=== PATIENT | male | born 1930 | race Caucasian/White ===

== ENCOUNTER 2016-05-13 22:41 | Inpatient (IN) | payer MEDICARE, BC ==
[~2016-05-13] VITALS: Ht 180.3 cm; Wt 81.2 kg
[~2016-05-13 22:41] MED LIST: ACET325T9 PO; ASPI-482 PO; ASPI81TA2 PO; ATOR10TA60 PO; DUTA0.5C PO; GABA-586 PO; MULT-658 PO; TRAM50TA PO
[2016-05-13 23:55] LABS: BASO % 0 % (0-3); EOS % 0 % (0-3); HEMATOCRIT 41.4 % (39.0-53.0); HEMOGLOBIN 13.8 g/dL (13.0-17.5); LYMPH # 0.4 x10^3/uL (1.0-4.8); LYMPH % 2 % (24-48); MEAN CORPUSCULAR HEMOGLOBIN 33 pg (25-35); MEAN CORPUSCULAR HGB CONC 33 g/dL (31-37); MEAN CORPUSCULAR VOLUME 99 fL (79-100); MONO % 8 % (0-9); NEUT % 90 % (31-73); PLATELET COUNT 220 x10^3/uL (140-400); WHITE BLOOD COUNT 22.1 x10^3/uL (4.0-11.0)
[2016-05-14 00:04] LABS: CALCIUM 10.5 mg/dL (8.5-10.1); CREATININE 1.7 mg/dL (0.7-1.3); GFR 38.6; POTASSIUM 4.1 mmol/L (3.5-5.1)
[2016-05-14 00:09] LABS: DIRECT BILIRUBIN 0.2 mg/dL (0.0-0.2); TOTAL BILIRUBIN 0.9 mg/dL (0.2-1.0); TOTAL PROTEIN 7.6 g/dL (6.4-8.2)
[2016-05-14] MEDS ORDERED: ONDANSETRON PF 4 MG/2 ML VIAL. IV ONE (00:30)
[2016-05-14] MEDS ORDERED: IV NORMAL SALINE 500ML BAG 500 ML IV ONE (00:30)
[2016-05-14 00:34] LABS: PLT ESTIMATE ADEQUATE (ADEQUATE); TOXIC GRANULATION SLIGHT
--- NOTE | 2016-05-14 00:44 | PHYS DOC ---
Past Medical History Past Medical History: Dementia Additional Past Medical Histor: CONSTIPATION, Hard Of Hearing Past Surgical History: Pacemaker Alcohol Use: None Drug Use: None Adult General Chief Complaint Chief Complaint: ABDOMINAL PAIN HPI HPI Patient is a 85 year old male who presents with and son for evaluation of nausea and vomiting x multiple since yesterday. He has dull epigastric abdominal pain today. He does note chronic constipation, but states he has no changes in current bowel habits. His last BM was 2 days ago. He denies fever or chills, diarrhea, dysuria, cough, chest pain, dyspnea, lightheadedness, headache , rash, myalgia, cough, rhinorrhea. States he has not eaten or drank anything since yesterday morning. Review of Systems Review of Systems Constitutional: Denies fever or chills [] Eyes: Denies change in visual acuity, redness, or eye pain [] HENT: Denies nasal congestion or sore throat [] Respiratory: Denies cough or shortness of breath [] Cardiovascular: No additional information not addressed in HPI [] GI: Denies bloody stools or diarrhea [] : Denies dysuria or hematuria [] Musculoskeletal: Denies back pain or joint pain [] Integument: Denies rash or skin lesions [] Neurologic: Denies headache, focal weakness or sensory changes [] Endocrine: Denies polyuria or polydipsia [] Current Medications Current Medications Current Medications Medications (Trade) Dose Ordered Sig/Linda Start Time Stop Time Status Last Admin Dose Admin Acetaminophen (Tylenol) 650 mg PRN Q4HRS PRN 05/14/16 01:15 05/15/16 01:14 Ondansetron HCl 4 mg 4 mg PRN Q8HRS PRN 05/14/16 01:15 05/15/16 01:14 Sodium Chloride (Iv Sodium Chloride 0.9% 500ml Bag) 500 ml @ 500 mls/hr 1X ONCE 05/14/16 00:30 05/14/16 01:29 DC 05/14/16 00:14 500 MLS/HR Sodium Chloride (Iv Sodium Chloride 0.9% 1000ml Bag) 1,000 ml @ 125 mls/hr Q8H 05/14/16 01:11 05/15/16 01:10 Allergies Allergies Allergies Coded Allergies Type Severity Reaction Last Updated Verified No Known Drug Allergies 01/29/14 No Physical Exam Physical Exam Constitutional: Well developed, well nourished, no acute distress, non-toxic appearance. [] HENT: Normocephalic, atraumatic, bilateral external ears normal, oropharynx moist, nose normal. [] Eyes: PERRLA, EOMI. [] Neck: Normal range of motion, supple. [] Cardiovascular:Heart rate regular rhythm [] Lungs & Thorax: Bilateral breath sounds clear to auscultation [] Abdomen: Bowel sounds normal, soft, minimal epigastric tenderness, no guarding or rebound, no pulsatile masses. [] Skin: Warm, dry, no erythema, no rash. [] Back: No tenderness, no CVA tenderness. [] Extremities: No tenderness, ROM intact, no edema. [] Neurologic: Alert and oriented X 3, normal motor function, normal sensory function, no focal deficits noted. [] Psychologic: Affect normal, judgement normal, mood normal. [] Current Patient Data Vital Signs Vital Signs Date Time Temp Pulse Resp B/P Pulse Ox O2 Delivery O2 Flow Rate FiO2 05/13/16 23:30 98.1 94 16 168/83 97 Room Air 98.1 Lab Values Laboratory Tests Test 05/13/16 23:30 White Blood Count 22.1x10^3/uL (4.0-11.0) H Red Blood Count 4.20x10^6/uL (4.30-5.70) L Hemoglobin 13.8g/dL (13.0-17.5) Hematocrit 41.4% (39.0-53.0) Mean Corpuscular Volume 99fL (79-100) Mean Corpuscular Hemoglobin 33pg (25-35) Mean Corpuscular Hemoglobin Concent 33g/dL (31-37) Red Cell Distribution Width 13.0% (11.5-14.5) Platelet Count 220x10^3/uL (140-400) Neutrophils (%) (Auto) 90% (31-73) H Lymphocytes (%) (Auto) 2% (24-48) L Monocytes (%) (Auto) 8% (0-9) Eosinophils (%) (Auto) 0% (0-3) Basophils (%) (Auto) 0% (0-3) Neutrophils # (Auto) 19.9x10^3uL (1.8-7.7) H Lymphocytes # (Auto) 0.4x10^3/uL (1.0-4.8) L Monocytes # (Auto) 1.8x10^3/uL (0.0-1.1) H Eosinophils # (Auto) 0.0x10^3/uL (0.0-0.7) Basophils # (Auto) 0.0x10^3/uL (0.0-0.2) Segmented Neutrophils % 89% (35-66) H Band Neutrophils % 1% (0-9) Lymphocytes % 3% (24-48) L Monocytes % 7% (0-10) Toxic Granulation Slight Platelet Estimate Adequate (ADEQUATE) Sodium Level 139mmol/L (136-145) Potassium Level 4.1mmol/L (3.5-5.1) Chloride Level 100mmol/L (98-107) Carbon Dioxide Level 26mmol/L (21-32) Anion Gap 13 (6-14) Blood Urea Nitrogen 41mg/dL (8-26) H Creatinine 1.7mg/dL (0.7-1.3) H Estimated GFR (Cockcroft-Gault) 38.6 Glucose Level 129mg/dL (70-99) H Calcium Level 10.5mg/dL (8.5-10.1) H Total Bilirubin 0.9mg/dL (0.2-1.0) Direct Bilirubin 0.2mg/dL (0.0-0.2) Aspartate Amino Transferase (AST) 20U/L (15-37) Alanine Aminotransferase (ALT) 21U/L (16-63) Alkaline Phosphatase 60U/L (46-116) Total Protein 7.6g/dL (6.4-8.2) Albumin 4.0g/dL (3.4-5.0) Lipase 853U/L (73-393) H Laboratory Tests 05/13/16 23:30 Laboratory Tests 05/13/16 23:30 EKG EKG EKG as interpreted by me as ventricularly paced rhythm, rate 83 Radiology/Procedures Radiology/Procedures Ultrasound right upper quadrant IMPRESSION Liver cyst. No cholelithiasis. Electronically signed by: Belkis Momin (May 14, 2016 01:48:32) Course & Med Decision Making Course & Med Decision Making Pertinent Labs and Imaging studies reviewed. (See chart for details) He has leukocytosis and elevated lipase. Also has mild acute renal failure. His symptoms and laboratory evaluation are consistent with acute pancreatitis. Will admit for hydration and GI consultation. Discussed case with Dr. Williamson, who will admit. Roshan Disclaimer Franciscoon Disclaimer This electronic medical record was generated, in whole or in part, using a voice recognition dictation system. Departure Departure Impression: Primary Impression: Pancreatitis Additional Impressions: Nausea and vomiting Acute renal failure Disposition: ADMITTED INPATIENT Condition: STABLE Referrals: GERSON TODD Jr, MD (PCP) Problem Qualifiers Primary Impression: Pancreatitis Chronicity: acute Pancreatitis type: unspecified pancreatitis type Acute pancreatitis complication: unspecified Qualified Code: K85.90 - Acute pancreatitis without necrosis or infection, unspecified Additional Impressions: Nausea and vomiting Vomiting type: unspecified Vomiting Intractability: intractable Qualified Code: R11.2 - Nausea with vomiting, unspecified Acute renal failure Acute renal failure type: unspecified Qualified Code: N17.9 - Acute kidney failure, unspecified Maikel SANDOVAL MD May 14, 2016 00:44
[2016-05-14] MEDS ORDERED: ONDANSETRON PF 4 MG/2 ML VIAL. IV PRN ×2 (01:15→11:11)
[2016-05-14] MEDS ORDERED: ACETAMINOPHEN 325 MG TABLET. PO PRN (01:15)
--- NOTE | 2016-05-14 01:49 | RAD ---
PROCEDURE Right upper quadrant ultrasound HISTORY 85-year-old male with nausea and vomiting, abdominal pain and elevated lipase. Patient with dementia, unable to hold breath or reposition for the exam. TECHNIQUE Transverse and longitudinal sonography of the right upper quadrant is performed. COMPARISON None FINDINGS The pancreas is obscured by overlying bowel gas. IVC is documented. Within the left liver is a rounded anechoic structure measuring up to 7.5 cm, most suggestive of a cyst. This has been reportedly seen on previous CT, not currently available for comparison. The liver otherwise demonstrates normal contour and echogenicity. Main portal vein demonstrates normal directional flow. The liver measures 15.2 cm. There are no intraluminal gallstones, wall thickening or pericholecystic fluid. The right kidney measures 9.5 x 4.9 x 4.4 cm, without hydronephrosis or definite nephrolithiasis. Common bile duct measures 5 millimeters in diameter. IMPRESSION Liver cyst. No cholelithiasis. Electronically signed by: Belkis Momin (May 14, 2016 01:48:32)
[2016-05-14 02:19] LABS: BILIRUBIN,URINE NEGATIVE (NEG); GLUCOSE,URINE NEGATIVE (NEG); NITRITE,URINE NEGATIVE (NEG); PH,URINE 5.5; UROBILINOGEN,URINE 0.2 mg/dL (0.2 mg/dL)
[2016-05-14 02:24] LABS: BACTERIA,URINE FEW /HPF (0-FEW); PROTEIN,URINE TRACE mg/dL (NEG-TRACE); SQUAMOUS EPITHELIAL CELL,UR MOD /LPF
[2016-05-14 03:00] VITALS: BP 98/69
[2016-05-14] MEDS: IV NORMAL SALINE 1000ML BAG 1,000 ML IV SCH ×3 (03:01→20:41)
--- NOTE | 2016-05-14 06:14 | EKG ---
[facility] [address] [place] [address] Test Date: 2016-05-13 Test Time: 23:32:27 Pat Name: CHARIS JEFFERSON Department: Room: 506 Gender: M Alarm Mechanism Adjuster: TW EMT : 1930 Requested By: Maikel SANDOVAL Order Number: [id number] Reading MD: Jared Biswas Measurements Intervals [place] Rate: 83 P: RI: QRS: -67 QRSD: 168 T: 98 QT: 400 QTc: 471 Interpretive Statements ATRIAL FIBRILLATION VPACED Electronically Signed On 05-15-2016 15:31:02 CONCRETE TILE MACHINE OPERATOR by Jared Biswas
[2016-05-14 07:00] VITALS: BP 141/76
--- NOTE | 2016-05-14 10:19 | PDOC2 ---
GI CONSULT Reason For Consult: Pancreatitis HPI: HPI: 85 y/o male admitted through the ER where he was evaluated for n/v that began on 05/12/16 w/o precipitating events. He has h/o dementia; his is present to provide some history. He says emesis was initially clear but looked a little dark yesterday morning (when last occurred). He might have had some chest tightness but denies abdominal pain. He tolerated clear liquids this morning. Labs show WBC 22.1, lipase 853, Calcium 10.5, BUN 41, Cr 1.7. Abd US showed hepatic cyst. He also denies reflux/heartburn, dysphagia, weight loss, diarrhea, hematochezia , and melena. He has a h/o constipation; he has been advised to use Miralax and Benefiber in the past but tends not to take these. Colonoscopy in 2016 was normal; he does have a h/o adenomatous colon polyp in 2008. No gallbladder or pancreas history. He takes ASA 81mg at home but otherwise denies NSAID use. PMH: PMH: dementia, pacemaker, constipation, adenomatous colon polyp, BPH, HLD FH: Family History: Cancer (colon cancer - mother) Social History: Smoke: No (previously smoked the occasional cigar) ALCOHOL: occassional (wine w/ dinner sometimes) Drugs: None ROS: GEN: Denies fevers, chills, sweats HEENT: Denies blurred vision, sore throat CV: ?chest tightness" per RESP: Denies shortness of air, cough GI: Per HPI : Denies hematuria, dysuria ENDO: Denies weight changes NEURO: h/o dementia MSK: Denies weakness, joint pain/swelling SKIN: Denies jaundice, pruritus VItals: Vitals: Vital Signs Date Time Temp Pulse Resp B/P Pulse Ox O2 Delivery O2 Flow Rate FiO2 05/14/16 07:00 98.1 95 24 141/76 96 Room Air 98.1 Labs: Labs: Laboratory Tests Test 05/13/16 23:30 05/14/16 02:00 White Blood Count 22.1x10^3/uL (4.0-11.0) Red Blood Count 4.20x10^6/uL (4.30-5.70) Hemoglobin 13.8g/dL (13.0-17.5) Hematocrit 41.4% (39.0-53.0) Mean Corpuscular Volume 99fL (79-100) Mean Corpuscular Hemoglobin 33pg (25-35) Mean Corpuscular Hemoglobin Concent 33g/dL (31-37) Red Cell Distribution Width 13.0% (11.5-14.5) Platelet Count 220x10^3/uL (140-400) Neutrophils (%) (Auto) 90% (31-73) Lymphocytes (%) (Auto) 2% (24-48) Monocytes (%) (Auto) 8% (0-9) Eosinophils (%) (Auto) 0% (0-3) Basophils (%) (Auto) 0% (0-3) Neutrophils # (Auto) 19.9x10^3uL (1.8-7.7) Lymphocytes # (Auto) 0.4x10^3/uL (1.0-4.8) Monocytes # (Auto) 1.8x10^3/uL (0.0-1.1) Eosinophils # (Auto) 0.0x10^3/uL (0.0-0.7) Basophils # (Auto) 0.0x10^3/uL (0.0-0.2) Segmented Neutrophils % 89% (35-66) Band Neutrophils % 1% (0-9) Lymphocytes % 3% (24-48) Monocytes % 7% (0-10) Toxic Granulation Slight Platelet Estimate Adequate (ADEQUATE) Sodium Level 139mmol/L (136-145) Potassium Level 4.1mmol/L (3.5-5.1) Chloride Level 100mmol/L (98-107) Carbon Dioxide Level 26mmol/L (21-32) Anion Gap 13 (6-14) Blood Urea Nitrogen 41mg/dL (8-26) Creatinine 1.7mg/dL (0.7-1.3) Estimated GFR (Cockcroft-Gault) 38.6 Glucose Level 129mg/dL (70-99) Calcium Level 10.5mg/dL (8.5-10.1) Total Bilirubin 0.9mg/dL (0.2-1.0) Direct Bilirubin 0.2mg/dL (0.0-0.2) Aspartate Amino Transf (AST/SGOT) 20U/L (15-37) Alanine Aminotransferase (ALT/SGPT) 21U/L (16-63) Alkaline Phosphatase 60U/L (46-116) Total Protein 7.6g/dL (6.4-8.2) Albumin 4.0g/dL (3.4-5.0) Lipase 853U/L (73-393) Urine Collection Type Unknown Urine Color Yellow Urine Clarity Clear Urine pH 5.5 Urine Specific [place] >=1.030 Urine Protein Tracemg/dL (NEG-TRACE) Urine Glucose (UA) Negativemg/dL (NEG) Urine Ketones (Stick) Tracemg/dL (NEG) Urine Blood Trace (NEG) Urine Nitrite Negative (NEG) Urine Bilirubin Negative (NEG) Urine Urobilinogen Dipstick 0.2mg/dL (0.2 mg/dL) Urine Leukocyte Esterase Negative (NEG) Urine RBC 3-5/HPF (0-2) Urine WBC 1-4/HPF (0-4) Urine Squamous Epithelial Cells Mod/LPF Urine Amorphous Sediment Present/HPF Urine Bacteria Few/HPF (0-FEW) Urine Hyaline Casts Few/HPF Urine Mucus Marked/LPF Allergies: Coded Allergies: No Known Drug Allergies (Unverified , 01/29/14) Medications: Current Medications Medications (Trade) Dose Ordered Sig/Linda Route PRN Reason Start Time Stop Time Status Last Admin Dose Admin Ondansetron HCl 4 mg 4 mg 1X ONCE IV 05/14/16 00:30 05/14/16 00:31 DC 05/14/16 00:13 Sodium Chloride 500 ml @ 500 mls/hr 1X ONCE IV 05/14/16 00:30 05/14/16 01:29 DC 05/14/16 00:14 Sodium Chloride (Iv Sodium Chloride 0.9% 1000ml Bag) 1,000 ml @ 125 mls/hr Q8H IV 05/14/16 01:11 05/15/16 01:10 05/14/16 03:01 Imaging: Imaging: Abd US 05/13/15 IMPRESSION Liver cyst. No cholelithiasis. PE: GEN: NAD HEENT: Atraumatic, PERRL LUNGS: CTAB HEART: RRR +murm ABD: NABS, S/ND/NT EXTREMITY: No edema SKIN: No rashes, no jaundice NEURO/PSYCH: forgetful A/P: A/P: Elevated lipase -853 on admission -had n/v for about 24 hours, possibly w/ chest tightness -LFTs WNL, abd US w/o cholelithiasis -no h/o pancreatitis or significant alcohol use N/v -tolerated clears this morning H/o constipation CRC screen, colon cancer -normal colonoscopy 2015 Dementia -- Will proceed w. CT A/P for further evaluation of pancreas. ANGELA SCHNEIDER May 14, 2016 10:19
[2016-05-14] MEDS ORDERED: IOHEXOL 240 MG/ML 50ML VIAL. PO ONE (10:30)
[2016-05-14 11:00] VITALS: BP 115/57
[2016-05-14] MEDS: POLYETHYLENE GLYCOL 3350 17 GM PACKET. PO SCH (11:00)
[2016-05-14] MEDS: DUTASTERIDE 0.5 MG CAPSULE PO SCH (11:44)
[2016-05-14] MEDS: ASPIRIN ENTERIC COATED 81 MG TABLET.DR. PO SCH (11:45)
[2016-05-14] MEDS: GABAPENTIN 300 MG CAPSULE. PO SCH ×2 (12:00→20:51)
[2016-05-14] MEDS ORDERED: MAGNESIUM HYDROXIDE 2,400 MG/30 ML ORAL.SUSP. PO PRN (12:15)
--- NOTE | 2016-05-14 12:15 | PDOC1 ---
History and Physical Date of Admission Date of Admission DATE: 05/14/16 TIME: 12:08 Identification/Chief Complaint Chief Complaint abd pain, emesis Source Source: Caregiver, Chart review, Patient History of Present Illness History of Present Illness 85 y/o male, hard of hearing, accompanied by , few days hx emesis , epigastric pain, Lipase 890s, CT pending, GI seen patient, Patient non tender, no emesis since admission, no diarrhea, Pt has had dec PO last few days, limited mobility, prefers to sit or lay in house per PCP Dr. pena LAbs Ca 10.2, Creatinine 1.7. Lipase 800s PAin described as epigastric, vague, no radiation, no fevers, no identifiable precipitating or alleviating factor. Accompanied by emesis Past Medical History Cardiovascular: Hyperlipidemia Hepatobiliary: Other (constipation) Past Surgical History Past Surgical History: No pertinent history Family History Family History: No Significant Social History Smoke: No (previously smoked the occasional cigar) ALCOHOL: none (wine w/ dinner sometimes) Drugs: None Current Problem List Problem List Problems Medical Problems: (1) Acute renal failure Status: Acute (2) Nausea and vomiting Status: Acute (3) Pancreatitis Status: Acute Problems: Current Medications Current Medications Current Medications Ondansetron HCl 4 mg 4 mg 1X ONCE IV Last administered on 05/14/16 00:13; Start 05/14/16 at 00:30; Stop 05/14/16 at 00:31; Status DC Sodium Chloride (Iv Sodium Chloride 0.9% 500ml Bag) 500 ml @ 500 mls/hr 1X ONCE IV Last administered on 05/14/16 00:14; Start 05/14/16 at 00:30; Stop at 01:29; Status DC Ondansetron HCl 4 mg 4 mg PRN Q8HRS PRN IV NAUSEA/VOMITING; Start 05/14/16 at 01 :15; Stop 05/14/16 at 11:13; Status DC Sodium Chloride (Iv Sodium Chloride 0.9% 1000ml Bag) 1,000 ml @ 125 mls/hr Q8H IV Last administered on 05/14/16 03:01; Start 05/14/16 at 01:11; Stop 05/15/16 at 01:10 Acetaminophen (Tylenol) 650 mg PRN Q4HRS PRN PO FEVER; Start 05/14/16 at 01:15; Stop 05/15/16 at 01:14 Iohexol (Omnipaque 240 Mg/ml) 30 ml 1X ONCE PO Last administered on 05/14/16 10:56; Start 05/14/16 at 10:30; Stop 05/14/16 at 10:31; Status DC Polyethylene Glycol (miraLAX PACKET) 17 gm DAILY PO ; Start 05/14/16 at 11:00 Ondansetron HCl (Zofran) 4 mg PRN Q6HRS PRN IV NAUSEA/VOMITING; Start 05/14/16 at 11:11 Aspirin (Children'S Aspirin) 81 mg DAILYWBKFT PO ; Start 05/15/16 at 09:00; Status UNV Aspirin (Ecotrin) 81 mg DAILYWBKFT PO Last administered on 05/14/16 11:45; Start 05/14/16 at 12:00 Atorvastatin Calcium (Lipitor) 10 mg QHS PO ; Start 05/14/16 at 21:00 Dutasteride (Avodart) 0.5 mg DAILY PO Last administered on 05/14/16 11:44; Start 05/14/16 at 12:00 Gabapentin (Neurontin) 300 mg BID PO ; Start 05/14/16 at 12:00 Tramadol HCl (Ultram) 50 mg PRN Q6HRS PRN PO PAIN; Start 05/14/16 at 11:15 Active Scripts Active Reported Gabapentin 300 Mg Capsule 300 Mg PO BID Aspir 81 (Aspirin) 81 Mg Tablet.dr 81 Mg PO DAILY Atorvastatin Calcium 10 Mg Tablet 1 Tab PO DAILY Tramadol Hcl 50 Mg Tablet 1 Tab PO PRN Q6HRS Centrum Silver Tablet (Multivits-Min/Fa/Lycopene/Lut) 1 Each Tablet 1 Each PO Aspirin 81 Mg Tab.chew 1 Tab PO DAILY Avodart (Dutasteride) 0.5 Mg Capsule 1 Cap PO DAILY Allergies Allergies: Coded Allergies: No Known Drug Allergies (Unverified , 01/29/14) ROS Review of System all 14 pt system reviwed, denies Physical Exam General: Alert, Oriented X3, Cooperative, No acute distress HEENT: Atraumatic Lungs: Clear to auscultation Heart: S1S2, RRR, no thrills, no rubs Cardiovascular: S1 Breasts: Normal Abdomen: Normal bowel sounds, Soft, No tenderness, No hepatosplenomegaly, No masses Male Genitals Exam: normal genitalia, normal prostate Rectal Exam: not examined Extremities: No clubbing, No cyanosis, No edema, Normal pulses, No tenderness/ swelling Skin: No rashes, No breakdown, No significant lesion Neuro: Normal gait, Normal speech, Strength at 5/5 X4 ext, Normal tone, Sensation intact, Cranial nerves 3-12 NL, Reflexes 2+ Psych/Mental Status: Mental status NL, Mood NL Vitals Vitals Vital Signs Date Time Temp Pulse Resp B/P Pulse Ox O2 Delivery O2 Flow Rate FiO2 05/14/16 08:00 Room Air 05/14/16 07:00 98.1 95 24 141/76 96 98.1 Labs Labs Laboratory Tests Test 05/13/16 23:30 05/14/16 02:00 White Blood Count 22.1x10^3/uL (4.0-11.0) Red Blood Count 4.20x10^6/uL (4.30-5.70) Hemoglobin 13.8g/dL (13.0-17.5) Hematocrit 41.4% (39.0-53.0) Mean Corpuscular Volume 99fL (79-100) Mean Corpuscular Hemoglobin 33pg (25-35) Mean Corpuscular Hemoglobin Concent 33g/dL (31-37) Red Cell Distribution Width 13.0% (11.5-14.5) Platelet Count 220x10^3/uL (140-400) Neutrophils (%) (Auto) 90% (31-73) Lymphocytes (%) (Auto) 2% (24-48) Monocytes (%) (Auto) 8% (0-9) Eosinophils (%) (Auto) 0% (0-3) Basophils (%) (Auto) 0% (0-3) Neutrophils # (Auto) 19.9x10^3uL (1.8-7.7) Lymphocytes # (Auto) 0.4x10^3/uL (1.0-4.8) Monocytes # (Auto) 1.8x10^3/uL (0.0-1.1) Eosinophils # (Auto) 0.0x10^3/uL (0.0-0.7) Basophils # (Auto) 0.0x10^3/uL (0.0-0.2) Segmented Neutrophils % 89% (35-66) Band Neutrophils % 1% (0-9) Lymphocytes % 3% (24-48) Monocytes % 7% (0-10) Toxic Granulation Slight Platelet Estimate Adequate (ADEQUATE) Sodium Level 139mmol/L (136-145) Potassium Level 4.1mmol/L (3.5-5.1) Chloride Level 100mmol/L (98-107) Carbon Dioxide Level 26mmol/L (21-32) Anion Gap 13 (6-14) Blood Urea Nitrogen 41mg/dL (8-26) Creatinine 1.7mg/dL (0.7-1.3) Estimated GFR (Cockcroft-Gault) 38.6 Glucose Level 129mg/dL (70-99) Calcium Level 10.5mg/dL (8.5-10.1) Total Bilirubin 0.9mg/dL (0.2-1.0) Direct Bilirubin 0.2mg/dL (0.0-0.2) Aspartate Amino Transf (AST/SGOT) 20U/L (15-37) Alanine Aminotransferase (ALT/SGPT) 21U/L (16-63) Alkaline Phosphatase 60U/L (46-116) Total Protein 7.6g/dL (6.4-8.2) Albumin 4.0g/dL (3.4-5.0) Lipase 853U/L (73-393) Urine Collection Type Unknown Urine Color Yellow Urine Clarity Clear Urine pH 5.5 Urine Specific [place] >=1.030 Urine Protein Tracemg/dL (NEG-TRACE) Urine Glucose (UA) Negativemg/dL (NEG) Urine Ketones (Stick) Tracemg/dL (NEG) Urine Blood Trace (NEG) Urine Nitrite Negative (NEG) Urine Bilirubin Negative (NEG) Urine Urobilinogen Dipstick 0.2mg/dL (0.2 mg/dL) Urine Leukocyte Esterase Negative (NEG) Urine RBC 3-5/HPF (0-2) Urine WBC 1-4/HPF (0-4) Urine Squamous Epithelial Cells Mod/LPF Urine Amorphous Sediment Present/HPF Urine Bacteria Few/HPF (0-FEW) Urine Hyaline Casts Few/HPF Urine Mucus Marked/LPF Laboratory Tests Test 05/13/16 23:30 05/14/16 02:00 White Blood Count 22.1x10^3/uL (4.0-11.0) Red Blood Count 4.20x10^6/uL (4.30-5.70) Hemoglobin 13.8g/dL (13.0-17.5) Hematocrit 41.4% (39.0-53.0) Mean Corpuscular Volume 99fL (79-100) Mean Corpuscular Hemoglobin 33pg (25-35) Mean Corpuscular Hemoglobin Concent 33g/dL (31-37) Red Cell Distribution Width 13.0% (11.5-14.5) Platelet Count 220x10^3/uL (140-400) Neutrophils (%) (Auto) 90% (31-73) Lymphocytes (%) (Auto) 2% (24-48) Monocytes (%) (Auto) 8% (0-9) Eosinophils (%) (Auto) 0% (0-3) Basophils (%) (Auto) 0% (0-3) Neutrophils # (Auto) 19.9x10^3uL (1.8-7.7) Lymphocytes # (Auto) 0.4x10^3/uL (1.0-4.8) Monocytes # (Auto) 1.8x10^3/uL (0.0-1.1) Eosinophils # (Auto) 0.0x10^3/uL (0.0-0.7) Basophils # (Auto) 0.0x10^3/uL (0.0-0.2) Segmented Neutrophils % 89% (35-66) Band Neutrophils % 1% (0-9) Lymphocytes % 3% (24-48) Monocytes % 7% (0-10) Toxic Granulation Slight Platelet Estimate Adequate (ADEQUATE) Sodium Level 139mmol/L (136-145) Potassium Level 4.1mmol/L (3.5-5.1) Chloride Level 100mmol/L (98-107) Carbon Dioxide Level 26mmol/L (21-32) Anion Gap 13 (6-14) Blood Urea Nitrogen 41mg/dL (8-26) Creatinine 1.7mg/dL (0.7-1.3) Estimated GFR (Cockcroft-Gault) 38.6 Glucose Level 129mg/dL (70-99) Calcium Level 10.5mg/dL (8.5-10.1) Total Bilirubin 0.9mg/dL (0.2-1.0) Direct Bilirubin 0.2mg/dL (0.0-0.2) Aspartate Amino Transf (AST/SGOT) 20U/L (15-37) Alanine Aminotransferase (ALT/SGPT) 21U/L (16-63) Alkaline Phosphatase 60U/L (46-116) Total Protein 7.6g/dL (6.4-8.2) Albumin 4.0g/dL (3.4-5.0) Lipase 853U/L (73-393) Urine Collection Type Unknown Urine Color Yellow Urine Clarity Clear Urine pH 5.5 Urine Specific [place] >=1.030 Urine Protein Tracemg/dL (NEG-TRACE) Urine Glucose (UA) Negativemg/dL (NEG) Urine Ketones (Stick) Tracemg/dL (NEG) Urine Blood Trace (NEG) Urine Nitrite Negative (NEG) Urine Bilirubin Negative (NEG) Urine Urobilinogen Dipstick 0.2mg/dL (0.2 mg/dL) Urine Leukocyte Esterase Negative (NEG) Urine RBC 3-5/HPF (0-2) Urine WBC 1-4/HPF (0-4) Urine Squamous Epithelial Cells Mod/LPF Urine Amorphous Sediment Present/HPF Urine Bacteria Few/HPF (0-FEW) Urine Hyaline Casts Few/HPF Urine Mucus Marked/LPF VTE Prophylaxis Ordered VTE Prophylaxis Devices: Yes VTE Pharmacological Prophylaxi: Yes Assessment/Plan Assessment/Plan 1, Mild pancreatitis as evidence by elevated lipase 2. Hypercalcemia sec to dehydration 3. ARF, hypovolemia, vaso motor likely sec to poor po 4. SIRS pOA, no sepsis 5. CHronic constipation 6. Emesis with mild hypokalmia PLAN: Liquid diet CT scan today abdomen Recheck Ca, lipase, BMP mindy IVF aggressive 125cc Encourage ambulation PT/OT Dw JAYLENHENRIK Capps MD May 14, 2016 12:15
[2016-05-14] MEDS ORDERED: POLYETHYLENE GLYCOL 3350 17 GM PACKET. PO SCH (13:00)
--- NOTE | 2016-05-14 13:03 | RAD ---
CT abdomen and pelvis without IV contrast History: Nausea and vomiting, elevated lipase, pancreatitis. Comparison: CT abdomen pelvis 02/19/2015. Technique: After administration of oral contrast, helical CT of the abdomen and pelvis was performed from the lung bases through the ischial tuberosities. Axial, sagittal, and coronal reconstructions were obtained. One or more of the following individualized dose reduction techniques were utilized for the study: Automated exposure control Adjustment of mA and/or kV according to patient's size Use of iterative reconstruction technique. Findings: Evaluation of solid organs limited by lack of intravenous contrast. There is also motion artifact at multiple levels which could obscure subtle abnormalities. Visualized lower chest demonstrate portions of a pacemaker. There is a moderate hiatal hernia which appears to have a complex orientation. Hiatal hernia appears larger since previous study. 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 There is interval development of a small right pleural effusion. Low-density left hepatic lesion, likely cyst, is fairly similar to previous study. Spleen is small, but otherwise unremarkable. Bilateral adrenal glands are unremarkable. Gallbladder is unremarkable. No convincing peripancreatic fluid or inflammation is identified. Bilateral kidneys and ureters are free of stone or obstruction. Infrarenal abdominal aortic aneurysm measures 3.2 cm AP dimension is similar to previous study. Urinary bladder is unremarkable. Prostate appears mildly enlarged. No free air or free fluid is seen in the abdomen or pelvis. Degenerative mild levoconvex scoliosis of the lumbar spine is seen. Impression: 1. No CT evidence of pancreatitis. 2. Moderate to large hiatal hernia with complex orientation, incompletely assessed. 3. Asbestos related pleural disease. Small right pleural effusion. 4. Infrarenal abdominal aortic aneurysm, unchanged from previous study.
[2016-05-14 15:00] VITALS: BP 104/58
[2016-05-14] MEDS: DOCUSATE SODIUM 100 MG CAPSULE PO SCH (15:47)
[2016-05-14 19:00] VITALS: BP 109/58
[2016-05-14] MEDS: ATORVASTATIN CALCIUM 10 MG TABLET. PO SCH (20:51)
[2016-05-14 23:00] VITALS: BP 118/47
[2016-05-15 03:00] VITALS: BP 100/55
[2016-05-15 06:06] LABS: BASO % 0 % (0-3); EOS % 0 % (0-3); HEMATOCRIT 24.3 % (39.0-53.0); HEMOGLOBIN 8.1 g/dL (13.0-17.5); LYMPH # 1.3 x10^3/uL (1.0-4.8); LYMPH % 12 % (24-48); MEAN CORPUSCULAR HEMOGLOBIN 33 pg (25-35); MEAN CORPUSCULAR HGB CONC 33 g/dL (31-37); MEAN CORPUSCULAR VOLUME 100 fL (79-100); MONO % 15 % (0-9); NEUT % 73 % (31-73); PLATELET COUNT 145 x10^3/uL (140-400); RED BLOOD COUNT 2.43 x10^6/uL (4.30-5.70); RED CELL DISTRIBUTION WIDTH 13.6 % (11.5-14.5); WHITE BLOOD COUNT 11.2 x10^3/uL (4.0-11.0)
[2016-05-15 06:17] LABS: CALCIUM 8.5 mg/dL (8.5-10.1); GFR 71.2; POTASSIUM 3.8 mmol/L (3.5-5.1)
[2016-05-15 06:18] LABS: CHOLESTEROL/HDL RATIO 2.7
[2016-05-15 07:00] VITALS: BP 105/36
[2016-05-15] MEDS: ASPIRIN ENTERIC COATED 81 MG TABLET.DR. PO SCH (08:00)
[2016-05-15] MEDS ORDERED: BARIUM SULFATE 60% 355 ML SUSP PO ONE (08:15)
[2016-05-15] MEDS ORDERED: ASPIRIN 81 MG TAB.CHEW PO SCH (09:00)
[2016-05-15] MEDS: DOCUSATE SODIUM 100 MG CAPSULE PO SCH (09:00)
[2016-05-15] MEDS: DUTASTERIDE 0.5 MG CAPSULE PO SCH (09:00)
[2016-05-15] MEDS: POLYETHYLENE GLYCOL 3350 17 GM PACKET. PO SCH (09:00)
[2016-05-15] MEDS: GABAPENTIN 300 MG CAPSULE. PO SCH ×2 (09:00→20:27)
--- NOTE | 2016-05-15 10:17 | PDOC ---
Subjective: Subjective: Per pt and - unable to complete imaging. Objective: Objective: Per RN - radiology apparently unable to perform UGI due to weakness/confusion. Had two black stools, first loose and second more formed. Vital Signs: Vital Signs Date Time Temp Pulse Resp B/P Pulse Ox O2 Delivery O2 Flow Rate FiO2 05/15/16 07:00 99.1 79 18 105/36 95 Room Air 99.1 Labs: Laboratory Tests Test 05/15/16 05:25 White Blood Count 11.2x10^3/uL Red Blood Count 2.43x10^6/uL Hemoglobin 8.1g/dL Hematocrit 24.3% Mean Corpuscular Volume 100fL Mean Corpuscular Hemoglobin 33pg Mean Corpuscular Hemoglobin Concent 33g/dL Red Cell Distribution Width 13.6% Platelet Count 145x10^3/uL Neutrophils (%) (Auto) 73% Lymphocytes (%) (Auto) 12% Monocytes (%) (Auto) 15% Eosinophils (%) (Auto) 0% Basophils (%) (Auto) 0% Neutrophils # (Auto) 8.2x10^3uL Lymphocytes # (Auto) 1.3x10^3/uL Monocytes # (Auto) 1.7x10^3/uL Eosinophils # (Auto) 0.0x10^3/uL Basophils # (Auto) 0.0x10^3/uL Sodium Level 146mmol/L Potassium Level 3.8mmol/L Chloride Level 114mmol/L Carbon Dioxide Level 25mmol/L Anion Gap 7 Blood Urea Nitrogen 67mg/dL Creatinine 1.0mg/dL Estimated GFR (Cockcroft-Gault) 71.2 Glucose Level 101mg/dL Calcium Level 8.5mg/dL Triglycerides Level 84mg/dL Cholesterol Level 107mg/dL LDL Cholesterol, Calculated 50mg/dL VLDL Cholesterol, Calculated 17mg/dL HDL Cholesterol 40mg/dL Cholesterol/HDL Ratio 2.7 Lipase 83U/L Imaging: CT A/P w/ oral contrast 05/14/16 Impression: 1. No CT evidence of pancreatitis. 2. Moderate to large hiatal hernia with complex orientation, incompletely assessed. 3. Asbestos related pleural disease. Small right pleural effusion. 4. Infrarenal abdominal aortic aneurysm, unchanged from previous study. PE: GEN: NAD LUNGS: CTAB anteriorly HEART: RRR ABD: S/ND/NT NEURO/PSYCH: able to provide some history A/P: Abnormal CT A/P -moderate to large hiatal hernia with complex orientation -UGI cancelled per radiology Anemia -Hgb 13.8 to 8.1, BUN 41 to 67 Dark stool -black per RN, more formed today Elevated lipase - resolved -LFTs WNL, abd US w/o cholelithiasis, no h/o pancreatitis or significant alcohol use, no CT evidence of pancreatitis N/v - resolved (has been NPO today) Dementia -- Significant change in labs today. Need to d/w Dr. Mendoza. ANGELA SCHNEIDER May 15, 2016 10:17
[2016-05-15 11:13] VITALS: BP 105/67
[2016-05-15] MEDS: PANTOPRAZOLE IV PUSH 40 MG VIAL. IVP SCH ×2 (11:30→18:09)
--- NOTE | 2016-05-15 12:53 | PDOC ---
PROGRESS NOTES Chief Complaint Chief Complaint 1. Idiopathic pancreaitis 2. Melena 3. Syncope, likely vagal 4. Hypercalcemia sec to dehydration resolved 5. ARF, hypovolemia, vaso motor likely sec to poor po 6. 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 CHronic constipation 8. Emesis with mild hypokalemia History of Present Illness History of Present Illness Acute events today: ' large melanotic stool Was about to have upper GI series but had almost near syncope HGb dropped to 8.4 from 13, but also as well as WBC 11 from 22 Lipase now normal CTs can fails to reveal radiographic evidence of pancreatitis Vitals Vitals Vital Signs Date Time Temp Pulse Resp B/P Pulse Ox O2 Delivery O2 Flow Rate FiO2 05/15/16 12:04 Room Air 05/15/16 11:13 98.9 69 14 105/67 97 98.9 Physical Exam General: Alert, Oriented X3, Cooperative, No acute distress Abdomen: Normal bowel sounds, Soft, No tenderness, No hepatosplenomegaly, No masses Extremities: No clubbing, No cyanosis, No edema, Normal pulses, No tenderness/ swelling Skin: No rashes, No breakdown, No significant lesion Labs LABS Laboratory Tests Test 05/15/16 05:25 White Blood Count 11.2x10^3/uL (4.0-11.0) Red Blood Count 2.43x10^6/uL (4.30-5.70) Hemoglobin 8.1g/dL (13.0-17.5) Hematocrit 24.3% (39.0-53.0) Mean Corpuscular Volume 100fL (79-100) Mean Corpuscular Hemoglobin 33pg (25-35) Mean Corpuscular Hemoglobin Concent 33g/dL (31-37) Red Cell Distribution Width 13.6% (11.5-14.5) Platelet Count 145x10^3/uL (140-400) Neutrophils (%) (Auto) 73% (31-73) Lymphocytes (%) (Auto) 12% (24-48) Monocytes (%) (Auto) 15% (0-9) Eosinophils (%) (Auto) 0% (0-3) Basophils (%) (Auto) 0% (0-3) Neutrophils # (Auto) 8.2x10^3uL (1.8-7.7) Lymphocytes # (Auto) 1.3x10^3/uL (1.0-4.8) Monocytes # (Auto) 1.7x10^3/uL (0.0-1.1) Eosinophils # (Auto) 0.0x10^3/uL (0.0-0.7) Basophils # (Auto) 0.0x10^3/uL (0.0-0.2) Sodium Level 146mmol/L (136-145) Potassium Level 3.8mmol/L (3.5-5.1) Chloride Level 114mmol/L (98-107) Carbon Dioxide Level 25mmol/L (21-32) Anion Gap 7 (6-14) Blood Urea Nitrogen 67mg/dL (8-26) Creatinine 1.0mg/dL (0.7-1.3) Estimated GFR (Cockcroft-Gault) 71.2 Glucose Level 101mg/dL (70-99) Calcium Level 8.5mg/dL (8.5-10.1) Triglycerides Level 84mg/dL (0-150) Cholesterol Level 107mg/dL (0-200) LDL Cholesterol, Calculated 50mg/dL (0-100) VLDL Cholesterol, Calculated 17mg/dL (0-40) HDL Cholesterol 40mg/dL (40-60) Cholesterol/HDL Ratio 2.7 Lipase 83U/L (73-393) Review of Systems Review of Systems Limited today Assessment and Plan Assessmemt and Plan EGD today HH mindy MOnitor for more melena Might need HH later PM depending on EGD findings Keep tele PPI IV NO NSAIDs, blood thinners Add pT/OT Dw RN Problems Medical Problems: (1) Acute renal failure Status: Acute (2) Nausea and vomiting Status: Acute (3) Pancreatitis Status: Acute Problems: Comment Review of Relevant I have reviewed the following items cordell (where applicable) has been applied. Labs Laboratory Tests Test 05/13/16 23:30 05/14/16 02:00 05/15/16 05:25 White Blood Count 22.1x10^3/uL (4.0-11.0) 11.2x10^3/uL (4.0-11.0) Red Blood Count 4.20x10^6/uL (4.30-5.70) 2.43x10^6/uL (4.30-5.70) Hemoglobin 13.8g/dL (13.0-17.5) 8.1g/dL (13.0-17.5) Hematocrit 41.4% (39.0-53.0) 24.3% (39.0-53.0) Mean Corpuscular Volume 99fL (79-100) 100fL (79-100) Mean Corpuscular Hemoglobin 33pg (25-35) 33pg (25-35) Mean Corpuscular Hemoglobin Concent 33g/dL (31-37) 33g/dL (31-37) Red Cell Distribution Width 13.0% (11.5-14.5) 13.6% (11.5-14.5) Platelet Count 220x10^3/uL (140-400) 145x10^3/uL (140-400) Neutrophils (%) (Auto) 90% (31-73) 73% (31-73) Lymphocytes (%) (Auto) 2% (24-48) 12% (24-48) Monocytes (%) (Auto) 8% (0-9) 15% (0-9) Eosinophils (%) (Auto) 0% (0-3) 0% (0-3) Basophils (%) (Auto) 0% (0-3) 0% (0-3) Neutrophils # (Auto) 19.9x10^3uL (1.8-7.7) 8.2x10^3uL (1.8-7.7) Lymphocytes # (Auto) 0.4x10^3/uL (1.0-4.8) 1.3x10^3/uL (1.0-4.8) Monocytes # (Auto) 1.8x10^3/uL (0.0-1.1) 1.7x10^3/uL (0.0-1.1) Eosinophils # (Auto) 0.0x10^3/uL (0.0-0.7) 0.0x10^3/uL (0.0-0.7) Basophils # (Auto) 0.0x10^3/uL (0.0-0.2) 0.0x10^3/uL (0.0-0.2) Segmented Neutrophils % 89% (35-66) Band Neutrophils % 1% (0-9) Lymphocytes % 3% (24-48) Monocytes % 7% (0-10) Toxic Granulation Slight Platelet Estimate Adequate (ADEQUATE) Sodium Level 139mmol/L (136-145) 146mmol/L (136-145) Potassium Level 4.1mmol/L (3.5-5.1) 3.8mmol/L (3.5-5.1) Chloride Level 100mmol/L (98-107) 114mmol/L (98-107) Carbon Dioxide Level 26mmol/L (21-32) 25mmol/L (21-32) Anion Gap 13 (6-14) 7 (6-14) Blood Urea Nitrogen 41mg/dL (8-26) 67mg/dL (8-26) Creatinine 1.7mg/dL (0.7-1.3) 1.0mg/dL (0.7-1.3) Estimated GFR (Cockcroft-Gault) 38.6 71.2 Glucose Level 129mg/dL (70-99) 101mg/dL (70-99) Calcium Level 10.5mg/dL (8.5-10.1) 8.5mg/dL (8.5-10.1) Total Bilirubin 0.9mg/dL (0.2-1.0) Direct Bilirubin 0.2mg/dL (0.0-0.2) Aspartate Amino Transf (AST/SGOT) 20U/L (15-37) Alanine Aminotransferase (ALT/SGPT) 21U/L (16-63) Alkaline Phosphatase 60U/L (46-116) Total Protein 7.6g/dL (6.4-8.2) Albumin 4.0g/dL (3.4-5.0) Lipase 853U/L (73-393) 83U/L (73-393) Urine Collection Type Unknown Urine Color Yellow Urine Clarity Clear Urine pH 5.5 Urine Specific [place] >=1.030 Urine Protein Tracemg/dL (NEG-TRACE) Urine Glucose (UA) Negativemg/dL (NEG) Urine Ketones (Stick) Tracemg/dL (NEG) Urine Blood Trace (NEG) Urine Nitrite Negative (NEG) Urine Bilirubin Negative (NEG) Urine Urobilinogen Dipstick 0.2mg/dL (0.2 mg/dL) Urine Leukocyte Esterase Negative (NEG) Urine RBC 3-5/HPF (0-2) Urine WBC 1-4/HPF (0-4) Urine Squamous Epithelial Cells Mod/LPF Urine Amorphous Sediment Present/HPF Urine Bacteria Few/HPF (0-FEW) Urine Hyaline Casts Few/HPF Urine Mucus Marked/LPF Triglycerides Level 84mg/dL (0-150) Cholesterol Level 107mg/dL (0-200) LDL Cholesterol, Calculated 50mg/dL (0-100) VLDL Cholesterol, Calculated 17mg/dL (0-40) HDL Cholesterol 40mg/dL (40-60) Cholesterol/HDL Ratio 2.7 Laboratory Tests Test 05/15/16 05:25 White Blood Count 11.2x10^3/uL (4.0-11.0) Red Blood Count 2.43x10^6/uL (4.30-5.70) Hemoglobin 8.1g/dL (13.0-17.5) Hematocrit 24.3% (39.0-53.0) Mean Corpuscular Volume 100fL (79-100) Mean Corpuscular Hemoglobin 33pg (25-35) Mean Corpuscular Hemoglobin Concent 33g/dL (31-37) Red Cell Distribution Width 13.6% (11.5-14.5) Platelet Count 145x10^3/uL (140-400) Neutrophils (%) (Auto) 73% (31-73) Lymphocytes (%) (Auto) 12% (24-48) Monocytes (%) (Auto) 15% (0-9) Eosinophils (%) (Auto) 0% (0-3) Basophils (%) (Auto) 0% (0-3) Neutrophils # (Auto) 8.2x10^3uL (1.8-7.7) Lymphocytes # (Auto) 1.3x10^3/uL (1.0-4.8) Monocytes # (Auto) 1.7x10^3/uL (0.0-1.1) Eosinophils # (Auto) 0.0x10^3/uL (0.0-0.7) Basophils # (Auto) 0.0x10^3/uL (0.0-0.2) Sodium Level 146mmol/L (136-145) Potassium Level 3.8mmol/L (3.5-5.1) Chloride Level 114mmol/L (98-107) Carbon Dioxide Level 25mmol/L (21-32) Anion Gap 7 (6-14) Blood Urea Nitrogen 67mg/dL (8-26) Creatinine 1.0mg/dL (0.7-1.3) Estimated GFR (Cockcroft-Gault) 71.2 Glucose Level 101mg/dL (70-99) Calcium Level 8.5mg/dL (8.5-10.1) Triglycerides Level 84mg/dL (0-150) Cholesterol Level 107mg/dL (0-200) LDL Cholesterol, Calculated 50mg/dL (0-100) VLDL Cholesterol, Calculated 17mg/dL (0-40) HDL Cholesterol 40mg/dL (40-60) Cholesterol/HDL Ratio 2.7 Lipase 83U/L (73-393) Medications Current Medications Ondansetron HCl 4 mg 4 mg 1X ONCE IV Last administered on 05/14/16 00:13; Start 05/14/16 at 00:30; Stop 05/14/16 at 00:31; Status DC Sodium Chloride (Iv Sodium Chloride 0.9% 500ml Bag) 500 ml @ 500 mls/hr 1X ONCE IV Last administered on 05/14/16 00:14; Start 05/14/16 at 00:30; Stop at 01:29; Status DC Ondansetron HCl 4 mg 4 mg PRN Q8HRS PRN IV NAUSEA/VOMITING; Start 05/14/16 at 01 :15; Stop 05/14/16 at 11:13; Status DC Sodium Chloride (Iv Sodium Chloride 0.9% 1000ml Bag) 1,000 ml @ 125 mls/hr Q8H IV Last administered on 05/14/16 20:41; Start 05/14/16 at 01:11; Stop 05/15/16 at 01:10; Status DC Acetaminophen (Tylenol) 650 mg PRN Q4HRS PRN PO FEVER Last administered on 20:51; Start 05/14/16 at 01:15; Stop 05/15/16 at 01:14; Status DC Iohexol (Omnipaque 240 Mg/ml) 30 ml 1X ONCE PO Last administered on 05/14/16 10:56; Start 05/14/16 at 10:30; Stop 05/14/16 at 10:31; Status DC Polyethylene Glycol (miraLAX PACKET) 17 gm DAILY PO ; Start 05/14/16 at 11:00 Ondansetron HCl (Zofran) 4 mg PRN Q6HRS PRN IV NAUSEA/VOMITING; Start 05/14/16 at 11:11 Aspirin (Children'S Aspirin) 81 mg DAILYWBKFT PO ; Start 05/15/16 at 09:00; Status UNV Aspirin (Ecotrin) 81 mg DAILYWBKFT PO Last administered on 05/14/16 11:45; Start 05/14/16 at 12:00 Atorvastatin Calcium (Lipitor) 10 mg QHS PO Last administered on 05/14/16 20:51 ; Start 05/14/16 at 21:00 Dutasteride (Avodart) 0.5 mg DAILY PO Last administered on 05/14/16 11:44; Start 05/14/16 at 12:00 Gabapentin (Neurontin) 300 mg BID PO Last administered on 05/14/16 20:51; Start 05/14/16 at 12:00 Tramadol HCl (Ultram) 50 mg PRN Q6HRS PRN PO PAIN; Start 05/14/16 at 11:15 Docusate Sodium (Colace) 100 mg DAILY PO Last administered on 05/14/16 15:47; Start 05/14/16 at 13:00 Polyethylene Glycol (miraLAX PACKET) 17 gm DAILY PO Last administered on 15:47; Start 05/14/16 at 13:00; Stop 05/14/16 at 16:54; Status DC Magnesium Hydroxide (Milk Of Magnesia) 2,400 mg PRN DAILY PRN PO CONSTIPATION; Start 05/14/16 at 12:15 Barium Sulfate (Liquid E-Z Paque) 355 ml 1X ONCE PO ; Start 05/15/16 at 08:15; Stop 05/15/16 at 08:16; Status DC Pantoprazole Sodium (Protonix Vial) 40 mg [id number] IVP ; Start 05/15/16 at 11:30 Active Scripts Active Reported Gabapentin 300 Mg Capsule 300 Mg PO BID Aspir 81 (Aspirin) 81 Mg Tablet.dr 81 Mg PO DAILY Atorvastatin Calcium 10 Mg Tablet 1 Tab PO DAILY Tramadol Hcl 50 Mg Tablet 1 Tab PO PRN Q6HRS Centrum Silver Tablet (Multivits-Min/Fa/Lycopene/Lut) 1 Each Tablet 1 Each PO Aspirin 81 Mg Tab.chew 1 Tab PO DAILY Avodart (Dutasteride) 0.5 Mg Capsule 1 Cap PO DAILY Vitals/I & O Vital Sign - Last 24 Hours 05/14/16 05/14/16 05/14/16 05/14/16 15:00 19:00 19:50 23:00 Temp 97.2 97.9 97.9 97.2 97.9 97.9 Pulse 72 76 84 Resp 16 18 B/P 104/58 109/58 118/47 Pulse Ox 94 98 92 O2 Delivery Room Air Room Air Room Air Room Air 05/15/16 05/15/16 05/15/16 05/15/16 03:00 07:00 08:00 11:13 Temp 99.5 99.1 98.9 99.5 99.1 98.9 Pulse 66 79 69 Resp 18 14 B/P 100/55 105/36 105/67 Pulse Ox 93 95 97 O2 Delivery Room Air Room Air Room Air Room Air 05/15/16 12:04 O2 Delivery Room Air Intake and Output 05/14/16 05/14/16 05/15/16 15:00 23:00 07:00 Intake Total 440 ml 350 ml 0 ml Output Total 600 ml Balance 440 ml -250 ml 0 ml HENRIK YORK MD May 15, 2016 12:53
[2016-05-15] MEDS ORDERED: LIDOCAINE 2% PF Vial for OR 5 ML VIAL. ONE (12:59)
[2016-05-15] MEDS ORDERED: PROPOFOL 20 ML IV ONE (12:59)
--- NOTE | 2016-05-15 13:29 | PDOC4 ---
PROCEDURE Procedure EGD Indication: nausea, vomiting, abnormal CT with "intrathoracic stomach" Meds: per anesthesia Findings: E--severe acute esophagitis distally from emesis. G--large HH; seems to be a paraesophageal component containing the fundus. In the fundus, ulceration suggestive of traumatic or brief ischemic cause. Remainder of stomach normal. D--normal to second portion. Any bleeding may have been from the acute esophagitis. Tolerated well. IMP: Acute esophagitis large HH with apparent paraesophageal component; this may have been "pinched/entrapped" recently, causing his syndrome. Do not believe he really has pancreatitis. REC: Clears OK continue PPI, iv for now. Will ask surgery to see re: HH repair; I suspect this is the cause of current issues. Thanks. WILBERTO ROBERTS MD May 15, 2016 13:29
--- NOTE | 2016-05-15 14:34 | PDOC2 ---
QIANA GIBSON Aidan [employer] SERVICE TECHNICIAN 05/15/16 1434: CONSULT Date of Consult Date of Consult DATE: 05/15/16 TIME: 14:29 Reason for Consult Reason for Consult: hiatal hernia Referring Physician Referring Physician: Dr Mendoza Identification/Chief Complaint Chief Complaint abdominal pain Source Source: Chart review, Patient History of Present Illness Reason for Visit: Admitted with acute onset abdominal pain, vomiting, and weakness . No similar symptoms in past. No history of GERD, dysphagia Currently no abdominal pain and tolerating clear liquids Attempted UGI, became weak, radiologist stopped testing low hgb, tarry stools, underwent EGD Past Medical History Cardiovascular: HTN, Hyperlipidemia Hepatobiliary: Other (constipation) Past Surgical History Past Surgical History: Other (pacemaker) Family History Family History: No Significant Social History No (previously smoked the occasional cigar) ALCOHOL: none (wine w/ dinner sometimes) Drugs: None Lives: with Family Current Problem List Problem List Problems Medical Problems: (1) Acute renal failure Status: Acute (2) Nausea and vomiting Status: Acute (3) Pancreatitis Status: Acute Current Medications Current Medications Current Medications Ondansetron HCl 4 mg 4 mg 1X ONCE IV Last administered on 05/14/16 00:13; Start 05/14/16 at 00:30; Stop 05/14/16 at 00:31; Status DC Sodium Chloride (Iv Sodium Chloride 0.9% 500ml Bag) 500 ml @ 500 mls/hr 1X ONCE IV Last administered on 05/14/16 00:14; Start 05/14/16 at 00:30; Stop at 01:29; Status DC Ondansetron HCl 4 mg 4 mg PRN Q8HRS PRN IV NAUSEA/VOMITING; Start 05/14/16 at 01 :15; Stop 05/14/16 at 11:13; Status DC Sodium Chloride (Iv Sodium Chloride 0.9% 1000ml Bag) 1,000 ml @ 125 mls/hr Q8H IV Last administered on 05/14/16 20:41; Start 05/14/16 at 01:11; Stop 05/15/16 at 01:10; Status DC Acetaminophen (Tylenol) 650 mg PRN Q4HRS PRN PO FEVER Last administered on 20:51; Start 05/14/16 at 01:15; Stop 05/15/16 at 01:14; Status DC Iohexol (Omnipaque 240 Mg/ml) 30 ml 1X ONCE PO Last administered on 05/14/16 10:56; Start 05/14/16 at 10:30; Stop 05/14/16 at 10:31; Status DC Polyethylene Glycol (miraLAX PACKET) 17 gm DAILY PO ; Start 05/14/16 at 11:00; Stop 05/15/16 at 12:54; Status DC Ondansetron HCl (Zofran) 4 mg PRN Q6HRS PRN IV NAUSEA/VOMITING; Start 05/14/16 at 11:11 Aspirin (Children'S Aspirin) 81 mg DAILYWBKFT PO ; Start 05/15/16 at 09:00; Status UNV Aspirin (Ecotrin) 81 mg DAILYWBKFT PO Last administered on 05/14/16 11:45; Start 05/14/16 at 12:00; Stop 05/15/16 at 12:54; Status DC Atorvastatin Calcium (Lipitor) 10 mg QHS PO Last administered on 05/14/16 20:51 ; Start 05/14/16 at 21:00 Dutasteride (Avodart) 0.5 mg DAILY PO Last administered on 05/14/16 11:44; Start 05/14/16 at 12:00 Gabapentin (Neurontin) 300 mg BID PO Last administered on 05/14/16 20:51; Start 05/14/16 at 12:00 Tramadol HCl (Ultram) 50 mg PRN Q6HRS PRN PO PAIN; Start 05/14/16 at 11:15 Docusate Sodium (Colace) 100 mg DAILY PO Last administered on 05/14/16 15:47; Start 05/14/16 at 13:00 Polyethylene Glycol (miraLAX PACKET) 17 gm DAILY PO Last administered on 15:47; Start 05/14/16 at 13:00; Stop 05/14/16 at 16:54; Status DC Magnesium Hydroxide (Milk Of Magnesia) 2,400 mg PRN DAILY PRN PO CONSTIPATION; Start 05/14/16 at 12:15 Barium Sulfate (Liquid E-Z Paque) 355 ml 1X ONCE PO ; Start 05/15/16 at 08:15; Stop 05/15/16 at 08:16; Status DC Pantoprazole Sodium 40 mg 40 mg [id number] IVP ; Start 05/15/16 at 11:30 Propofol (Diprivan) 20 ml @ As Directed STK-MED ONCE IV ; Start 05/15/16 at 12: 59; Stop 05/15/16 at 13:00; Status DC Lidocaine HCl (Lidocaine Pf 2% Vial) 5 ml STK-MED ONCE .ROUTE ; Start 05/15/16 at 12:59; Stop 05/15/16 at 13:00; Status DC Active Scripts Active Reported Gabapentin 300 Mg Capsule 300 Mg PO BID Aspir 81 (Aspirin) 81 Mg Tablet.dr 81 Mg PO DAILY Atorvastatin Calcium 10 Mg Tablet 1 Tab PO DAILY Tramadol Hcl 50 Mg Tablet 1 Tab PO PRN Q6HRS Centrum Silver Tablet (Multivits-Min/Fa/Lycopene/Lut) 1 Each Tablet 1 Each PO Aspirin 81 Mg Tab.chew 1 Tab PO DAILY Avodart (Dutasteride) 0.5 Mg Capsule 1 Cap PO DAILY Allergies Allergies: Coded Allergies: No Known Drug Allergies (Unverified , 05/15/16) ROS General: No: Chills, Other (fevers) PSYCHOLOGICAL ROS: No: Anxiety, Depression Eyes: No Blurry vision, No Double vision HEENT: No: Heacaches, Sore Throat Hematological and Lymphatic: No: Bleeding Problems, Blood Clots Respiratory: No: Cough, Shortness of breath Cardiovascular: No Chest Pain, No Palpitations Gastrointestinal: Yes Other (see hpi) Genitourinary: No Dysuria, No Hematuria Musculoskeletal: No Muscle Pain Neurological: Yes Confusion, Yes Memory Loss, No Numbness/Tingling Skin: No Pruritus, No Rash Physical Exam General: Alert, Cooperative, No acute distress HEENT: PERRLA, Mucous membr. moist/pink Lungs: Clear to auscultation, Normal air movement Heart: Regular rate, Normal S1, Normal S2, No murmurs Abdomen: Soft, Other (ND, NTTP) Extremities: No clubbing, No cyanosis Skin: No breakdown, No significant lesion Neuro: Normal speech, Sensation intact Psych/Mental Status: Mental status NL, Mood NL MUSCULOSKELETAL: No deformity, No swelling Vitals VITALS Vital Signs Date Time Temp Pulse Resp B/P Pulse Ox O2 Delivery O2 Flow Rate FiO2 05/15/16 13:31 98.9 64 20 102/59 98 Room Air 98.9 05/15/16 13:10 3 Labs Labs Laboratory Tests Test 05/13/16 23:30 05/14/16 02:00 05/15/16 05:25 White Blood Count 22.1x10^3/uL (4.0-11.0) 11.2x10^3/uL (4.0-11.0) Red Blood Count 4.20x10^6/uL (4.30-5.70) 2.43x10^6/uL (4.30-5.70) Hemoglobin 13.8g/dL (13.0-17.5) 8.1g/dL (13.0-17.5) Hematocrit 41.4% (39.0-53.0) 24.3% (39.0-53.0) Mean Corpuscular Volume 99fL (79-100) 100fL (79-100) Mean Corpuscular Hemoglobin 33pg (25-35) 33pg (25-35) Mean Corpuscular Hemoglobin Concent 33g/dL (31-37) 33g/dL (31-37) Red Cell Distribution Width 13.0% (11.5-14.5) 13.6% (11.5-14.5) Platelet Count 220x10^3/uL (140-400) 145x10^3/uL (140-400) Neutrophils (%) (Auto) 90% (31-73) 73% (31-73) Lymphocytes (%) (Auto) 2% (24-48) 12% (24-48) Monocytes (%) (Auto) 8% (0-9) 15% (0-9) Eosinophils (%) (Auto) 0% (0-3) 0% (0-3) Basophils (%) (Auto) 0% (0-3) 0% (0-3) Neutrophils # (Auto) 19.9x10^3uL (1.8-7.7) 8.2x10^3uL (1.8-7.7) Lymphocytes # (Auto) 0.4x10^3/uL (1.0-4.8) 1.3x10^3/uL (1.0-4.8) Monocytes # (Auto) 1.8x10^3/uL (0.0-1.1) 1.7x10^3/uL (0.0-1.1) Eosinophils # (Auto) 0.0x10^3/uL (0.0-0.7) 0.0x10^3/uL (0.0-0.7) Basophils # (Auto) 0.0x10^3/uL (0.0-0.2) 0.0x10^3/uL (0.0-0.2) Segmented Neutrophils % 89% (35-66) Band Neutrophils % 1% (0-9) Lymphocytes % 3% (24-48) Monocytes % 7% (0-10) Toxic Granulation Slight Platelet Estimate Adequate (ADEQUATE) Sodium Level 139mmol/L (136-145) 146mmol/L (136-145) Potassium Level 4.1mmol/L (3.5-5.1) 3.8mmol/L (3.5-5.1) Chloride Level 100mmol/L (98-107) 114mmol/L (98-107) Carbon Dioxide Level 26mmol/L (21-32) 25mmol/L (21-32) Anion Gap 13 (6-14) 7 (6-14) Blood Urea Nitrogen 41mg/dL (8-26) 67mg/dL (8-26) Creatinine 1.7mg/dL (0.7-1.3) 1.0mg/dL (0.7-1.3) Estimated GFR (Cockcroft-Gault) 38.6 71.2 Glucose Level 129mg/dL (70-99) 101mg/dL (70-99) Calcium Level 10.5mg/dL (8.5-10.1) 8.5mg/dL (8.5-10.1) Total Bilirubin 0.9mg/dL (0.2-1.0) Direct Bilirubin 0.2mg/dL (0.0-0.2) Aspartate Amino Transf (AST/SGOT) 20U/L (15-37) Alanine Aminotransferase (ALT/SGPT) 21U/L (16-63) Alkaline Phosphatase 60U/L (46-116) Total Protein 7.6g/dL (6.4-8.2) Albumin 4.0g/dL (3.4-5.0) Lipase 853U/L (73-393) 83U/L (73-393) Urine Collection Type Unknown Urine Color Yellow Urine Clarity Clear Urine pH 5.5 Urine Specific [place] >=1.030 Urine Protein Tracemg/dL (NEG-TRACE) Urine Glucose (UA) Negativemg/dL (NEG) Urine Ketones (Stick) Tracemg/dL (NEG) Urine Blood Trace (NEG) Urine Nitrite Negative (NEG) Urine Bilirubin Negative (NEG) Urine Urobilinogen Dipstick 0.2mg/dL (0.2 mg/dL) Urine Leukocyte Esterase Negative (NEG) Urine RBC 3-5/HPF (0-2) Urine WBC 1-4/HPF (0-4) Urine Squamous Epithelial Cells Mod/LPF Urine Amorphous Sediment Present/HPF Urine Bacteria Few/HPF (0-FEW) Urine Hyaline Casts Few/HPF Urine Mucus Marked/LPF Triglycerides Level 84mg/dL (0-150) Cholesterol Level 107mg/dL (0-200) LDL Cholesterol, Calculated 50mg/dL (0-100) VLDL Cholesterol, Calculated 17mg/dL (0-40) HDL Cholesterol 40mg/dL (40-60) Cholesterol/HDL Ratio 2.7 Laboratory Tests Test 05/15/16 05:25 White Blood Count 11.2x10^3/uL (4.0-11.0) Red Blood Count 2.43x10^6/uL (4.30-5.70) Hemoglobin 8.1g/dL (13.0-17.5) Hematocrit 24.3% (39.0-53.0) Mean Corpuscular Volume 100fL (79-100) Mean Corpuscular Hemoglobin 33pg (25-35) Mean Corpuscular Hemoglobin Concent 33g/dL (31-37) Red Cell Distribution Width 13.6% (11.5-14.5) Platelet Count 145x10^3/uL (140-400) Neutrophils (%) (Auto) 73% (31-73) Lymphocytes (%) (Auto) 12% (24-48) Monocytes (%) (Auto) 15% (0-9) Eosinophils (%) (Auto) 0% (0-3) Basophils (%) (Auto) 0% (0-3) Neutrophils # (Auto) 8.2x10^3uL (1.8-7.7) Lymphocytes # (Auto) 1.3x10^3/uL (1.0-4.8) Monocytes # (Auto) 1.7x10^3/uL (0.0-1.1) Eosinophils # (Auto) 0.0x10^3/uL (0.0-0.7) Basophils # (Auto) 0.0x10^3/uL (0.0-0.2) Sodium Level 146mmol/L (136-145) Potassium Level 3.8mmol/L (3.5-5.1) Chloride Level 114mmol/L (98-107) Carbon Dioxide Level 25mmol/L (21-32) Anion Gap 7 (6-14) Blood Urea Nitrogen 67mg/dL (8-26) Creatinine 1.0mg/dL (0.7-1.3) Estimated GFR (Cockcroft-Gault) 71.2 Glucose Level 101mg/dL (70-99) Calcium Level 8.5mg/dL (8.5-10.1) Triglycerides Level 84mg/dL (0-150) Cholesterol Level 107mg/dL (0-200) LDL Cholesterol, Calculated 50mg/dL (0-100) VLDL Cholesterol, Calculated 17mg/dL (0-40) HDL Cholesterol 40mg/dL (40-60) Cholesterol/HDL Ratio 2.7 Lipase 83U/L (73-393) Assessment/Plan Assessment/Plan HH EGD showed, gastric ulcers treat medically, PPI will attempt UGI in AM if pt can tolerate SYDNEE MCCRACKEN MD 05/15/16 1651: CONSULT Allergies Allergies: Coded Allergies: No Known Drug Allergies (Unverified , 05/15/16) Assessment/Plan Assessment/Plan Reviewed, CT and EGD results reviewed; diaphragmatic hernia involving stomach , configuration appears atypical; agree with UGI; Initially would recommend medical management for esophagitis, gastric ulcers; surgical recommendations pending UGI results; Pt with significant surgical risks QIANA GIBSON APRN May 15, 2016 14:34 SYDNEE MCCRACKEN MD May 15, 2016 16:51
[2016-05-15 15:55] VITALS: BP 131/53
[2016-05-15 19:00] VITALS: BP 104/49
[2016-05-15] MEDS: ATORVASTATIN CALCIUM 10 MG TABLET. PO SCH (20:26)
[2016-05-15] MEDS: TRAMADOL 50 MG TABLET. PO PRN (20:26)
[2016-05-15 23:00] VITALS: BP 106/57
[2016-05-16] MEDS: PANTOPRAZOLE IV PUSH 40 MG VIAL. IVP SCH ×2 (05:37→17:45)
[2016-05-16 05:51] LABS: BASO % 0 % (0-3); EOS % 1 % (0-3); HEMATOCRIT 23.1 % (39.0-53.0); HEMOGLOBIN 7.8 g/dL (13.0-17.5); LYMPH # 1.4 x10^3/uL (1.0-4.8); LYMPH % 16 % (24-48); MEAN CORPUSCULAR HEMOGLOBIN 33 pg (25-35); MEAN CORPUSCULAR HGB CONC 34 g/dL (31-37); MEAN CORPUSCULAR VOLUME 98 fL (79-100); MONO % 15 % (0-9); NEUT % 68 % (31-73); PLATELET COUNT 153 x10^3/uL (140-400); RED BLOOD COUNT 2.35 x10^6/uL (4.30-5.70); RED CELL DISTRIBUTION WIDTH 13.3 % (11.5-14.5); WHITE BLOOD COUNT 8.5 x10^3/uL (4.0-11.0)
[2016-05-16 06:08] LABS: CALCIUM 8.6 mg/dL (8.5-10.1); CREATININE 1.1 mg/dL (0.7-1.3); GFR 63.8; POTASSIUM 3.6 mmol/L (3.5-5.1)
[2016-05-16] MEDS ORDERED: BARIUM SULFATE 60% 355 ML SUSP PO ONE (08:15)
[2016-05-16] MEDS: GABAPENTIN 300 MG CAPSULE. PO SCH ×2 (09:00→20:13)
[2016-05-16] MEDS: DOCUSATE SODIUM 100 MG CAPSULE PO SCH (09:18)
--- NOTE | 2016-05-16 09:43 | RAD ---
EXAM: Upper gastrointestinal series exam. HISTORY: Hiatal hernia. TECHNIQUE: Fluoroscopic imaging was performed in multiple positions and obliquities during the oral administration of barium contrast. 7 fluoroscopic images were obtained. The total fluoroscopy time is 1.4 minutes. COMPARISON: CT dated 05/14/2016. FINDINGS: There is shallow penetration when swallowing thin barium consistency. No aspiration is seen. The esophagus is normal in caliber. There are multiple esophageal tertiary contractions throughout the exam. There is a large hiatal hernia with intrathoracic positioning of the majority of the stomach. There is no delay in transit of contrast into the stomach or small bowel. The proximal small bowel loops are unremarkable. There are coarse interstitial markings and there is calcified left pleural plaque. IMPRESSION: 1. Large hiatal hernia with intrathoracic positioning of the majority of the stomach. No gastric or esophageal mucosal lesion is seen and there is no evidence of obstruction. 2. Esophageal tertiary contractions. 3. Shallow penetration when swallowing thin barium consistency. No aspiration is seen.
--- NOTE | 2016-05-16 11:01 | PDOC ---
G I PROGRESS NOTE Subjective No complaints today. Smiling and comfortable. He and relate now a "spell " of pain, N and V a while back. Tolerating clears. Physical Exam Lungs clear. RRR Abdomen soft, not distended nor tender. Review of Relevant I have reviewed the following items cordell (where applicable) has been applied. Labs Laboratory Tests Test 05/15/16 05:25 05/16/16 05:20 White Blood Count 11.2x10^3/uL (4.0-11.0) 8.5x10^3/uL (4.0-11.0) Red Blood Count 2.43x10^6/uL (4.30-5.70) 2.35x10^6/uL (4.30-5.70) Hemoglobin 8.1g/dL (13.0-17.5) 7.8g/dL (13.0-17.5) Hematocrit 24.3% (39.0-53.0) 23.1% (39.0-53.0) Mean Corpuscular Volume 100fL (79-100) 98fL (79-100) Mean Corpuscular Hemoglobin 33pg (25-35) 33pg (25-35) Mean Corpuscular Hemoglobin Concent 33g/dL (31-37) 34g/dL (31-37) Red Cell Distribution Width 13.6% (11.5-14.5) 13.3% (11.5-14.5) Platelet Count 145x10^3/uL (140-400) 153x10^3/uL (140-400) Neutrophils (%) (Auto) 73% (31-73) 68% (31-73) Lymphocytes (%) (Auto) 12% (24-48) 16% (24-48) Monocytes (%) (Auto) 15% (0-9) 15% (0-9) Eosinophils (%) (Auto) 0% (0-3) 1% (0-3) Basophils (%) (Auto) 0% (0-3) 0% (0-3) Neutrophils # (Auto) 8.2x10^3uL (1.8-7.7) 5.8x10^3uL (1.8-7.7) Lymphocytes # (Auto) 1.3x10^3/uL (1.0-4.8) 1.4x10^3/uL (1.0-4.8) Monocytes # (Auto) 1.7x10^3/uL (0.0-1.1) 1.3x10^3/uL (0.0-1.1) Eosinophils # (Auto) 0.0x10^3/uL (0.0-0.7) 0.1x10^3/uL (0.0-0.7) Basophils # (Auto) 0.0x10^3/uL (0.0-0.2) 0.0x10^3/uL (0.0-0.2) Sodium Level 146mmol/L (136-145) 146mmol/L (136-145) Potassium Level 3.8mmol/L (3.5-5.1) 3.6mmol/L (3.5-5.1) Chloride Level 114mmol/L (98-107) 114mmol/L (98-107) Carbon Dioxide Level 25mmol/L (21-32) 29mmol/L (21-32) Anion Gap 7 (6-14) 3 (6-14) Blood Urea Nitrogen 67mg/dL (8-26) 46mg/dL (8-26) Creatinine 1.0mg/dL (0.7-1.3) 1.1mg/dL (0.7-1.3) Estimated GFR (Cockcroft-Gault) 71.2 63.8 Glucose Level 101mg/dL (70-99) 111mg/dL (70-99) Calcium Level 8.5mg/dL (8.5-10.1) 8.6mg/dL (8.5-10.1) Triglycerides Level 84mg/dL (0-150) Cholesterol Level 107mg/dL (0-200) LDL Cholesterol, Calculated 50mg/dL (0-100) VLDL Cholesterol, Calculated 17mg/dL (0-40) HDL Cholesterol 40mg/dL (40-60) Cholesterol/HDL Ratio 2.7 Lipase 83U/L (73-393) Laboratory Tests Test 05/16/16 05:20 White Blood Count 8.5x10^3/uL (4.0-11.0) Red Blood Count 2.35x10^6/uL (4.30-5.70) Hemoglobin 7.8g/dL (13.0-17.5) Hematocrit 23.1% (39.0-53.0) Mean Corpuscular Volume 98fL (79-100) Mean Corpuscular Hemoglobin 33pg (25-35) Mean Corpuscular Hemoglobin Concent 34g/dL (31-37) Red Cell Distribution Width 13.3% (11.5-14.5) Platelet Count 153x10^3/uL (140-400) Neutrophils (%) (Auto) 68% (31-73) Lymphocytes (%) (Auto) 16% (24-48) Monocytes (%) (Auto) 15% (0-9) Eosinophils (%) (Auto) 1% (0-3) Basophils (%) (Auto) 0% (0-3) Neutrophils # (Auto) 5.8x10^3uL (1.8-7.7) Lymphocytes # (Auto) 1.4x10^3/uL (1.0-4.8) Monocytes # (Auto) 1.3x10^3/uL (0.0-1.1) Eosinophils # (Auto) 0.1x10^3/uL (0.0-0.7) Basophils # (Auto) 0.0x10^3/uL (0.0-0.2) Sodium Level 146mmol/L (136-145) Potassium Level 3.6mmol/L (3.5-5.1) Chloride Level 114mmol/L (98-107) Carbon Dioxide Level 29mmol/L (21-32) Anion Gap 3 (6-14) Blood Urea Nitrogen 46mg/dL (8-26) Creatinine 1.1mg/dL (0.7-1.3) Estimated GFR (Cockcroft-Gault) 63.8 Glucose Level 111mg/dL (70-99) Calcium Level 8.6mg/dL (8.5-10.1) I suspect the drop in hemoglobin from admission value was at least to some degree dilutional as little blood in UGI tract. Medications Current Medications Ondansetron HCl 4 mg 4 mg 1X ONCE IV Last administered on 05/14/16t 00:13; Start 05/14/16 at 00:30; Stop 05/14/16 at 00:31; Status DC Sodium Chloride (Iv Sodium Chloride 0.9% 500ml Bag) 500 ml @ 500 mls/hr 1X ONCE IV Last administered on 05/14/16 00:14; Start 05/14/16 at 00:30; Stop at 01:29; Status DC Ondansetron HCl 4 mg 4 mg PRN Q8HRS PRN IV NAUSEA/VOMITING; Start 05/14/16 at 01 :15; Stop 05/14/16 at 11:13; Status DC Sodium Chloride (Iv Sodium Chloride 0.9% 1000ml Bag) 1,000 ml @ 125 mls/hr Q8H IV Last administered on 05/14/16 20:41; Start 05/14/16 at 01:11; Stop 05/15/16 at 01:10; Status DC Acetaminophen (Tylenol) 650 mg PRN Q4HRS PRN PO FEVER Last administered on 20:51; Start 05/14/16 at 01:15; Stop 05/15/16 at 01:14; Status DC Iohexol (Omnipaque 240 Mg/ml) 30 ml 1X ONCE PO Last administered on 05/14/16 10:56; Start 05/14/16 at 10:30; Stop 05/14/16 at 10:31; Status DC Polyethylene Glycol (miraLAX PACKET) 17 gm DAILY PO ; Start 05/14/16 at 11:00; Stop 05/15/16 at 12:54; Status DC Ondansetron HCl (Zofran) 4 mg PRN Q6HRS PRN IV NAUSEA/VOMITING; Start 05/14/16 at 11:11 Aspirin (Children'S Aspirin) 81 mg DAILYWBKFT PO ; Start 05/15/16 at 09:00; Status UNV Aspirin (Ecotrin) 81 mg DAILYWBKFT PO Last administered on 05/14/16 11:45; Start 05/14/16 at 12:00; Stop 05/15/16 at 12:54; Status DC Atorvastatin Calcium (Lipitor) 10 mg QHS PO Last administered on 05/15/16 20: 26; Start 05/14/16 at 21:00 Dutasteride (Avodart) 0.5 mg DAILY PO Last administered on 05/14/16 11:44; Start 05/14/16 at 12:00; Stop 05/16/16 at 09:09; Status DC Gabapentin (Neurontin) 300 mg BID PO Last administered on 05/15/16 20:27; Start 05/14/16 at 12:00 Tramadol HCl (Ultram) 50 mg PRN Q6HRS PRN PO PAIN Last administered on 20:26; Start 05/14/16 at 11:15 Docusate Sodium (Colace) 100 mg DAILY PO Last administered on 05/16/16 09:18; Start 05/14/16 at 13:00 Polyethylene Glycol (miraLAX PACKET) 17 gm DAILY PO Last administered on 15:47; Start 05/14/16 at 13:00; Stop 05/14/16 at 16:54; Status DC Magnesium Hydroxide (Milk Of Magnesia) 2,400 mg PRN DAILY PRN PO CONSTIPATION; Start 05/14/16 at 12:15 Barium Sulfate (Liquid E-Z Paque) 355 ml 1X ONCE PO ; Start 05/15/16 at 08:15; Stop 05/15/16 at 08:16; Status DC Pantoprazole Sodium 40 mg 40 mg [id number] IVP Last administered on 05/16/16 05:37 ; Start 05/15/16 at 11:30 Propofol (Diprivan) 20 ml @ As Directed STK-MED ONCE IV ; Start 05/15/16 at 12: 59; Stop 05/15/16 at 13:00; Status DC Lidocaine HCl (Lidocaine Pf 2% Vial) 5 ml STK-MED ONCE .ROUTE ; Start 05/15/16 at 12:59; Stop 05/15/16 at 13:00; Status DC Barium Sulfate (Liquid E-Z Paque) 355 ml 1X ONCE PO Last administered on 08:40; Start 05/16/16 at 08:15; Stop 05/16/16 at 08:16; Status DC Active Scripts Active Reported Aspir 81 (Aspirin) 81 Mg Tablet.dr 81 Mg PO DAILY Atorvastatin Calcium 10 Mg Tablet 1 Tab PO DAILY Aspirin 81 Mg Tab.chew 1 Tab PO DAILY Avodart (Dutasteride) 0.5 Mg Capsule 1 Cap PO DAILY Vitals/I & O Vital Sign - Last 24 Hours 1/10/05/15/16 05/15/16 05/15/16 11:13 12:04 12:59 13:10 Temp 98.9 98.9 98.9 98.9 Pulse 69 69 61 Resp 14 20 20 B/P 105/67 118/51 Pulse Ox 97 97 100 O2 Delivery Room Air Room Air Room Air Room Air Nasal Cannula O2 Flow Rate 3 05/15/16 05/15/16 05/15/16 05/15/16 13:20 13:31 15:55 19:00 Temp 98.9 98.9 98.8 101.1 98.9 98.9 98.8 101.1 Pulse 62 64 80 65 Resp 20 20 16 16 B/P 113/55 102/59 131/53 104/49 Pulse Ox 98 98 98 93 O2 Delivery Room Air Room Air Room Air Room Air 05/15/16 05/15/16 05/15/16 05/15/16 20:00 20:26 21:26 23:00 Temp 97.3 97.3 Pulse 65 Resp 18 18 B/P 106/57 Pulse Ox 98 98 95 O2 Delivery Room Air Room Air Room Air Room Air O2 Flow Rate 3.0 Intake and Output 05/15/16 05/15/16 05/16/16 15:00 23:00 07:00 Intake Total 260 ml 0 ml Output Total 500 ml Balance 260 ml -500 ml Problem List Problems Medical Problems: (1) Acute renal failure Status: Acute (2) Nausea and vomiting Status: Acute (3) Pancreatitis Status: Acute Assessment "Intrathoracic stomach"/LARGE hiatal hernia. He may intermittently have volvulus. Plan of Care: Continue current Tx, Mgmt Plan of Care Note Await surgical input. Would CT chest be helpful? WILBERTO ROBERTS MD May 16, 2016 11:01
[2016-05-16 11:30] VITALS: BP 117/66
--- NOTE | 2016-05-16 12:03 | PDOC ---
PROGRESS NOTES Subjective Subjective feels well, comfortable, no pain, tolerating clears without nausea or vomiting Objective Objective Vital Signs Date Time Temp Pulse Resp B/P Pulse Ox O2 Delivery O2 Flow Rate FiO2 05/15/16 23:00 97.3 65 18 106/57 95 Room Air 97.3 05/15/16 21:26 3.0 Intake and Output 05/16/16 07:00 Intake Total 260 ml Output Total 500 ml Balance -240 ml Intake Oral 260 ml Output Urine Total 500 ml # Voids 3 Physical Exam Abdomen: Soft, No tenderness General: Alert, Oriented X3, Cooperative HEENT: Atraumatic Lungs: Clear to auscultation MUSCULOSKELETAL: No deformity Psych/Mental Status: Mental status NL Assessment Assessment Problems Medical Problems: (1) Acute renal failure Status: Acute (2) Nausea and vomiting Status: Acute (3) Pancreatitis Status: Acute Upper GI:IMPRESSION: 1. Large hiatal hernia with intrathoracic positioning of the majority of the stomach. No gastric or esophageal mucosal lesion is seen and there is no evidence of obstruction. 2. Esophageal tertiary contractions. 3. Shallow penetration when swallowing thin barium consistency. No aspiration is seen. Plan Plan of Care The patient has a large hiatal hernia, no evidence of obstruction on upper GI and clinically taking po well. I reviewed details of surgical repair with the patient and his . I discussed what is entailed with surgery and the risks. It is not clear if there was some other process at play at his original presentation, (elevated WBC, elevated lipase etc). In addition his EGD showed significant esophagitis and a gastric ulcer. Given these findings and no evidence of gastric obstruction would recommend initial medical management with aggressive PPI therapy to provide healing of the esophagus and stomach. Surgical repair of the hernia remains a future option particularly if he appears to have further problems; but it there would be potential risks of a major abdominal procedure. He and is are aware, and they were given my office number. Plan to advance diet and see if tolerates. Note also drop in hemoglobin since admission; may be prudent to follow H and H. Comment Review of Relevant I have reviewed the following items cordell (where applicable) has been applied. Labs Laboratory Tests Test 05/15/16 05:25 05/16/16 05:20 White Blood Count 11.2x10^3/uL (4.0-11.0) 8.5x10^3/uL (4.0-11.0) Red Blood Count 2.43x10^6/uL (4.30-5.70) 2.35x10^6/uL (4.30-5.70) Hemoglobin 8.1g/dL (13.0-17.5) 7.8g/dL (13.0-17.5) Hematocrit 24.3% (39.0-53.0) 23.1% (39.0-53.0) Mean Corpuscular Volume 100fL (79-100) 98fL (79-100) Mean Corpuscular Hemoglobin 33pg (25-35) 33pg (25-35) Mean Corpuscular Hemoglobin Concent 33g/dL (31-37) 34g/dL (31-37) Red Cell Distribution Width 13.6% (11.5-14.5) 13.3% (11.5-14.5) Platelet Count 145x10^3/uL (140-400) 153x10^3/uL (140-400) Neutrophils (%) (Auto) 73% (31-73) 68% (31-73) Lymphocytes (%) (Auto) 12% (24-48) 16% (24-48) Monocytes (%) (Auto) 15% (0-9) 15% (0-9) Eosinophils (%) (Auto) 0% (0-3) 1% (0-3) Basophils (%) (Auto) 0% (0-3) 0% (0-3) Neutrophils # (Auto) 8.2x10^3uL (1.8-7.7) 5.8x10^3uL (1.8-7.7) Lymphocytes # (Auto) 1.3x10^3/uL (1.0-4.8) 1.4x10^3/uL (1.0-4.8) Monocytes # (Auto) 1.7x10^3/uL (0.0-1.1) 1.3x10^3/uL (0.0-1.1) Eosinophils # (Auto) 0.0x10^3/uL (0.0-0.7) 0.1x10^3/uL (0.0-0.7) Basophils # (Auto) 0.0x10^3/uL (0.0-0.2) 0.0x10^3/uL (0.0-0.2) Sodium Level 146mmol/L (136-145) 146mmol/L (136-145) Potassium Level 3.8mmol/L (3.5-5.1) 3.6mmol/L (3.5-5.1) Chloride Level 114mmol/L (98-107) 114mmol/L (98-107) Carbon Dioxide Level 25mmol/L (21-32) 29mmol/L (21-32) Anion Gap 7 (6-14) 3 (6-14) Blood Urea Nitrogen 67mg/dL (8-26) 46mg/dL (8-26) Creatinine 1.0mg/dL (0.7-1.3) 1.1mg/dL (0.7-1.3) Estimated GFR (Cockcroft-Gault) 71.2 63.8 Glucose Level 101mg/dL (70-99) 111mg/dL (70-99) Calcium Level 8.5mg/dL (8.5-10.1) 8.6mg/dL (8.5-10.1) Triglycerides Level 84mg/dL (0-150) Cholesterol Level 107mg/dL (0-200) LDL Cholesterol, Calculated 50mg/dL (0-100) VLDL Cholesterol, Calculated 17mg/dL (0-40) HDL Cholesterol 40mg/dL (40-60) Cholesterol/HDL Ratio 2.7 Lipase 83U/L (73-393) Laboratory Tests Test 05/16/16 05:20 White Blood Count 8.5x10^3/uL (4.0-11.0) Red Blood Count 2.35x10^6/uL (4.30-5.70) Hemoglobin 7.8g/dL (13.0-17.5) Hematocrit 23.1% (39.0-53.0) Mean Corpuscular Volume 98fL (79-100) Mean Corpuscular Hemoglobin 33pg (25-35) Mean Corpuscular Hemoglobin Concent 34g/dL (31-37) Red Cell Distribution Width 13.3% (11.5-14.5) Platelet Count 153x10^3/uL (140-400) Neutrophils (%) (Auto) 68% (31-73) Lymphocytes (%) (Auto) 16% (24-48) Monocytes (%) (Auto) 15% (0-9) Eosinophils (%) (Auto) 1% (0-3) Basophils (%) (Auto) 0% (0-3) Neutrophils # (Auto) 5.8x10^3uL (1.8-7.7) Lymphocytes # (Auto) 1.4x10^3/uL (1.0-4.8) Monocytes # (Auto) 1.3x10^3/uL (0.0-1.1) Eosinophils # (Auto) 0.1x10^3/uL (0.0-0.7) Basophils # (Auto) 0.0x10^3/uL (0.0-0.2) Sodium Level 146mmol/L (136-145) Potassium Level 3.6mmol/L (3.5-5.1) Chloride Level 114mmol/L (98-107) Carbon Dioxide Level 29mmol/L (21-32) Anion Gap 3 (6-14) Blood Urea Nitrogen 46mg/dL (8-26) Creatinine 1.1mg/dL (0.7-1.3) Estimated GFR (Cockcroft-Gault) 63.8 Glucose Level 111mg/dL (70-99) Calcium Level 8.6mg/dL (8.5-10.1) Medications Current Medications Ondansetron HCl 4 mg 4 mg 1X ONCE IV Last administered on 05/14/16 00:13; Start 05/14/16 at 00:30; Stop 05/14/16 at 00:31; Status DC Sodium Chloride (Iv Sodium Chloride 0.9% 500ml Bag) 500 ml @ 500 mls/hr 1X ONCE IV Last administered on 05/14/16 00:14; Start 05/14/16 at 00:30; Stop at 01:29; Status DC Ondansetron HCl 4 mg 4 mg PRN Q8HRS PRN IV NAUSEA/VOMITING; Start 05/14/16 at 01 :15; Stop 05/14/16 at 11:13; Status DC Sodium Chloride (Iv Sodium Chloride 0.9% 1000ml Bag) 1,000 ml @ 125 mls/hr Q8H IV Last administered on 05/14/16 20:41; Start 05/14/16 at 01:11; Stop 05/15/16 at 01:10; Status DC Acetaminophen (Tylenol) 650 mg PRN Q4HRS PRN PO FEVER Last administered on 20:51; Start 05/14/16 at 01:15; Stop 05/15/16 at 01:14; Status DC Iohexol (Omnipaque 240 Mg/ml) 30 ml 1X ONCE PO Last administered on 05/14/16 10:56; Start 05/14/16 at 10:30; Stop 05/14/16 at 10:31; Status DC Polyethylene Glycol (miraLAX PACKET) 17 gm DAILY PO ; Start 05/14/16 at 11:00; Stop 05/15/16 at 12:54; Status DC Ondansetron HCl (Zofran) 4 mg PRN Q6HRS PRN IV NAUSEA/VOMITING; Start 05/14/16 at 11:11 Aspirin (Children'S Aspirin) 81 mg DAILYWBKFT PO ; Start 05/15/16 at 09:00; Status UNV Aspirin (Ecotrin) 81 mg DAILYWBKFT PO Last administered on 05/14/16 11:45; Start 05/14/16 at 12:00; Stop 05/15/16 at 12:54; Status DC Atorvastatin Calcium (Lipitor) 10 mg QHS PO Last administered on 05/15/16 20: 26; Start 05/14/16 at 21:00 Dutasteride (Avodart) 0.5 mg DAILY PO Last administered on 05/14/16 11:44; Start 05/14/16 at 12:00; Stop 05/16/16 at 09:09; Status DC Gabapentin (Neurontin) 300 mg BID PO Last administered on 05/15/16 20:27; Start 05/14/16 at 12:00 Tramadol HCl (Ultram) 50 mg PRN Q6HRS PRN PO PAIN Last administered on 20:26; Start 05/14/16 at 11:15 Docusate Sodium (Colace) 100 mg DAILY PO Last administered on 05/16/16 09:18; Start 05/14/16 at 13:00 Polyethylene Glycol (miraLAX PACKET) 17 gm DAILY PO Last administered on 15:47; Start 05/14/16 at 13:00; Stop 05/14/16 at 16:54; Status DC Magnesium Hydroxide (Milk Of Magnesia) 2,400 mg PRN DAILY PRN PO CONSTIPATION; Start 05/14/16 at 12:15 Barium Sulfate (Liquid E-Z Paque) 355 ml 1X ONCE PO ; Start 05/15/16 at 08:15; Stop 05/15/16 at 08:16; Status DC Pantoprazole Sodium 40 mg 40 mg [id number] IVP Last administered on 05/16/16t 05:37 ; Start 05/15/16 at 11:30 Propofol (Diprivan) 20 ml @ As Directed STK-MED ONCE IV ; Start 05/15/16 at 12: 59; Stop 05/15/16 at 13:00; Status DC Lidocaine HCl (Lidocaine Pf 2% Vial) 5 ml STK-MED ONCE .ROUTE ; Start 05/15/16 at 12:59; Stop 05/15/16 at 13:00; Status DC Barium Sulfate (Liquid E-Z Paque) 355 ml 1X ONCE PO Last administered on t 08:40; Start 05/16/16 at 08:15; Stop 05/16/16 at 08:16; Status DC Active Scripts Active Reported Aspir 81 (Aspirin) 81 Mg Tablet.dr 81 Mg PO DAILY Atorvastatin Calcium 10 Mg Tablet 1 Tab PO DAILY Aspirin 81 Mg Tab.chew 1 Tab PO DAILY Avodart (Dutasteride) 0.5 Mg Capsule 1 Cap PO DAILY Vitals/I & O Vital Sign - Last 24 Hours 05/15/16 05/15/16 05/15/16 05/15/16 12:04 12:59 13:10 13:20 Temp 98.9 98.9 98.9 98.9 Pulse 69 61 62 Resp 20 20 20 B/P 118/51 113/55 Pulse Ox 97 100 98 O2 Delivery Room Air Room Air Room Air Room Air Nasal Cannula O2 Flow Rate 3 05/15/16 05/15/16 05/15/16 05/15/16 13:31 15:55 19:00 20:00 Temp 98.9 98.8 101.1 98.9 98.8 101.1 Pulse 64 80 65 Resp 20 16 16 B/P 102/59 131/53 104/49 Pulse Ox 98 98 93 O2 Delivery Room Air Room Air Room Air Room Air 05/15/16 05/15/16 05/15/16 20:26 21:26 23:00 Temp 97.3 97.3 Pulse 65 Resp 18 18 B/P 106/57 Pulse Ox 98 98 95 O2 Delivery Room Air Room Air Room Air O2 Flow Rate 3.0 Intake and Output 05/15/16 05/15/16 05/16/16 15:00 23:00 07:00 Intake Total 260 ml 0 ml Output Total 500 ml Balance 260 ml -500 ml SYDNEE MCCRACKEN MD May 16, 2016 12:03
--- NOTE | 2016-05-16 13:33 | PDOC ---
PROGRESS NOTES Chief Complaint Chief Complaint 1. Idiopathic pancreaitis, resolved 2. Melena, gastritis, espohagitis by EGD (05/15) 3. Syncope, likely vagal 4. Hypercalcemia sec to dehydration resolved 5. ARF, hypovolemia, vaso motor likely sec to poor po 6. 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 CHronic constipation 8. Emesis with mild hypokalemia 9. HUGE HIATAL HERNIA History of Present Illness History of Present Illness Dw GI and GS Pt has huge hiatal hernia but no obstruction Pt eating reg diet now and tolerating fine Educated pt and at bedside, heavy about keeping upright at least 2 hrs post prandial, avoiding supper too close to bedtime Pictures of EGD reviewed, esophagitis and gastritis appreciated graphically Vitals Vitals Vital Signs Date Time Temp Pulse Resp B/P Pulse Ox O2 Delivery O2 Flow Rate FiO2 05/16/16 11:30 96.9 69 20 117/66 99 Room Air 96.9 05/15/16 21:26 3.0 Physical Exam General: Alert, Oriented X3, Cooperative Heart: Regular rate, Normal S1, Normal S2, No murmurs Abdomen: Soft, No tenderness Extremities: No clubbing, No cyanosis Skin: No breakdown, No significant lesion Labs LABS Laboratory Tests Test 05/16/16 05:20 White Blood Count 8.5x10^3/uL (4.0-11.0) Red Blood Count 2.35x10^6/uL (4.30-5.70) Hemoglobin 7.8g/dL (13.0-17.5) Hematocrit 23.1% (39.0-53.0) Mean Corpuscular Volume 98fL (79-100) Mean Corpuscular Hemoglobin 33pg (25-35) Mean Corpuscular Hemoglobin Concent 34g/dL (31-37) Red Cell Distribution Width 13.3% (11.5-14.5) Platelet Count 153x10^3/uL (140-400) Neutrophils (%) (Auto) 68% (31-73) Lymphocytes (%) (Auto) 16% (24-48) Monocytes (%) (Auto) 15% (0-9) Eosinophils (%) (Auto) 1% (0-3) Basophils (%) (Auto) 0% (0-3) Neutrophils # (Auto) 5.8x10^3uL (1.8-7.7) Lymphocytes # (Auto) 1.4x10^3/uL (1.0-4.8) Monocytes # (Auto) 1.3x10^3/uL (0.0-1.1) Eosinophils # (Auto) 0.1x10^3/uL (0.0-0.7) Basophils # (Auto) 0.0x10^3/uL (0.0-0.2) Sodium Level 146mmol/L (136-145) Potassium Level 3.6mmol/L (3.5-5.1) Chloride Level 114mmol/L (98-107) Carbon Dioxide Level 29mmol/L (21-32) Anion Gap 3 (6-14) Blood Urea Nitrogen 46mg/dL (8-26) Creatinine 1.1mg/dL (0.7-1.3) Estimated GFR (Cockcroft-Gault) 63.8 Glucose Level 111mg/dL (70-99) Calcium Level 8.6mg/dL (8.5-10.1) Review of Systems Review of Systems Denies all 14 pt system Assessment and Plan Assessmemt and Plan Reg DIET NO pans of surgical intervention CAn see GS as OP SNU -d w SW - needs 1 more MN Problems Medical Problems: (1) Acute renal failure Status: Acute (2) Nausea and vomiting Status: Acute (3) Pancreatitis Status: Acute Problems: Comment Review of Relevant I have reviewed the following items cordell (where applicable) has been applied. Labs Laboratory Tests Test 05/15/16 05:25 05/16/16 05:20 White Blood Count 11.2x10^3/uL (4.0-11.0) 8.5x10^3/uL (4.0-11.0) Red Blood Count 2.43x10^6/uL (4.30-5.70) 2.35x10^6/uL (4.30-5.70) Hemoglobin 8.1g/dL (13.0-17.5) 7.8g/dL (13.0-17.5) Hematocrit 24.3% (39.0-53.0) 23.1% (39.0-53.0) Mean Corpuscular Volume 100fL (79-100) 98fL (79-100) Mean Corpuscular Hemoglobin 33pg (25-35) 33pg (25-35) Mean Corpuscular Hemoglobin Concent 33g/dL (31-37) 34g/dL (31-37) Red Cell Distribution Width 13.6% (11.5-14.5) 13.3% (11.5-14.5) Platelet Count 145x10^3/uL (140-400) 153x10^3/uL (140-400) Neutrophils (%) (Auto) 73% (31-73) 68% (31-73) Lymphocytes (%) (Auto) 12% (24-48) 16% (24-48) Monocytes (%) (Auto) 15% (0-9) 15% (0-9) Eosinophils (%) (Auto) 0% (0-3) 1% (0-3) Basophils (%) (Auto) 0% (0-3) 0% (0-3) Neutrophils # (Auto) 8.2x10^3uL (1.8-7.7) 5.8x10^3uL (1.8-7.7) Lymphocytes # (Auto) 1.3x10^3/uL (1.0-4.8) 1.4x10^3/uL (1.0-4.8) Monocytes # (Auto) 1.7x10^3/uL (0.0-1.1) 1.3x10^3/uL (0.0-1.1) Eosinophils # (Auto) 0.0x10^3/uL (0.0-0.7) 0.1x10^3/uL (0.0-0.7) Basophils # (Auto) 0.0x10^3/uL (0.0-0.2) 0.0x10^3/uL (0.0-0.2) Sodium Level 146mmol/L (136-145) 146mmol/L (136-145) Potassium Level 3.8mmol/L (3.5-5.1) 3.6mmol/L (3.5-5.1) Chloride Level 114mmol/L (98-107) 114mmol/L (98-107) Carbon Dioxide Level 25mmol/L (21-32) 29mmol/L (21-32) Anion Gap 7 (6-14) 3 (6-14) Blood Urea Nitrogen 67mg/dL (8-26) 46mg/dL (8-26) Creatinine 1.0mg/dL (0.7-1.3) 1.1mg/dL (0.7-1.3) Estimated GFR (Cockcroft-Gault) 71.2 63.8 Glucose Level 101mg/dL (70-99) 111mg/dL (70-99) Calcium Level 8.5mg/dL (8.5-10.1) 8.6mg/dL (8.5-10.1) Triglycerides Level 84mg/dL (0-150) Cholesterol Level 107mg/dL (0-200) LDL Cholesterol, Calculated 50mg/dL (0-100) VLDL Cholesterol, Calculated 17mg/dL (0-40) HDL Cholesterol 40mg/dL (40-60) Cholesterol/HDL Ratio 2.7 Lipase 83U/L (73-393) Laboratory Tests Test 05/16/16 05:20 White Blood Count 8.5x10^3/uL (4.0-11.0) Red Blood Count 2.35x10^6/uL (4.30-5.70) Hemoglobin 7.8g/dL (13.0-17.5) Hematocrit 23.1% (39.0-53.0) Mean Corpuscular Volume 98fL (79-100) Mean Corpuscular Hemoglobin 33pg (25-35) Mean Corpuscular Hemoglobin Concent 34g/dL (31-37) Red Cell Distribution Width 13.3% (11.5-14.5) Platelet Count 153x10^3/uL (140-400) Neutrophils (%) (Auto) 68% (31-73) Lymphocytes (%) (Auto) 16% (24-48) Monocytes (%) (Auto) 15% (0-9) Eosinophils (%) (Auto) 1% (0-3) Basophils (%) (Auto) 0% (0-3) Neutrophils # (Auto) 5.8x10^3uL (1.8-7.7) Lymphocytes # (Auto) 1.4x10^3/uL (1.0-4.8) Monocytes # (Auto) 1.3x10^3/uL (0.0-1.1) Eosinophils # (Auto) 0.1x10^3/uL (0.0-0.7) Basophils # (Auto) 0.0x10^3/uL (0.0-0.2) Sodium Level 146mmol/L (136-145) Potassium Level 3.6mmol/L (3.5-5.1) Chloride Level 114mmol/L (98-107) Carbon Dioxide Level 29mmol/L (21-32) Anion Gap 3 (6-14) Blood Urea Nitrogen 46mg/dL (8-26) Creatinine 1.1mg/dL (0.7-1.3) Estimated GFR (Cockcroft-Gault) 63.8 Glucose Level 111mg/dL (70-99) Calcium Level 8.6mg/dL (8.5-10.1) Medications Current Medications Ondansetron HCl 4 mg 4 mg 1X ONCE IV Last administered on 05/14/16 00:13; Start 05/14/16 at 00:30; Stop 05/14/16 at 00:31; Status DC Sodium Chloride (Iv Sodium Chloride 0.9% 500ml Bag) 500 ml @ 500 mls/hr 1X ONCE IV Last administered on 05/14/16 00:14; Start 05/14/16 at 00:30; Stop at 01:29; Status DC Ondansetron HCl 4 mg 4 mg PRN Q8HRS PRN IV NAUSEA/VOMITING; Start 05/14/16 at 01 :15; Stop 05/14/16 at 11:13; Status DC Sodium Chloride (Iv Sodium Chloride 0.9% 1000ml Bag) 1,000 ml @ 125 mls/hr Q8H IV Last administered on 05/14/16 20:41; Start 05/14/16 at 01:11; Stop 05/15/16 at 01:10; Status DC Acetaminophen (Tylenol) 650 mg PRN Q4HRS PRN PO FEVER Last administered on 20:51; Start 05/14/16 at 01:15; Stop 05/15/16 at 01:14; Status DC Iohexol (Omnipaque 240 Mg/ml) 30 ml 1X ONCE PO Last administered on 05/14/16 10:56; Start 05/14/16 at 10:30; Stop 05/14/16 at 10:31; Status DC Polyethylene Glycol (miraLAX PACKET) 17 gm DAILY PO ; Start 05/14/16 at 11:00; Stop 05/15/16 at 12:54; Status DC Ondansetron HCl (Zofran) 4 mg PRN Q6HRS PRN IV NAUSEA/VOMITING; Start 05/14/16 at 11:11 Aspirin (Children'S Aspirin) 81 mg DAILYWBKFT PO ; Start 05/15/16 at 09:00; Status UNV Aspirin (Ecotrin) 81 mg DAILYWBKFT PO Last administered on 05/14/16 11:45; Start 05/14/16 at 12:00; Stop 05/15/16 at 12:54; Status DC Atorvastatin Calcium (Lipitor) 10 mg QHS PO Last administered on 05/15/16 20: 26; Start 05/14/16 at 21:00 Dutasteride (Avodart) 0.5 mg DAILY PO Last administered on 05/14/16 11:44; Start 05/14/16 at 12:00; Stop 05/16/16 at 09:09; Status DC Gabapentin (Neurontin) 300 mg BID PO Last administered on 05/15/16 20:27; Start 05/14/16 at 12:00 Tramadol HCl (Ultram) 50 mg PRN Q6HRS PRN PO PAIN Last administered on 20:26; Start 05/14/16 at 11:15 Docusate Sodium (Colace) 100 mg DAILY PO Last administered on 05/16/16 09:18; Start 05/14/16 at 13:00 Polyethylene Glycol (miraLAX PACKET) 17 gm DAILY PO Last administered on 15:47; Start 05/14/16 at 13:00; Stop 05/14/16 at 16:54; Status DC Magnesium Hydroxide (Milk Of Magnesia) 2,400 mg PRN DAILY PRN PO CONSTIPATION; Start 05/14/16 at 12:15 Barium Sulfate (Liquid E-Z Paque) 355 ml 1X ONCE PO ; Start 05/15/16 at 08:15; Stop 05/15/16 at 08:16; Status DC Pantoprazole Sodium 40 mg 40 mg [id number] IVP Last administered on 05/16/16t 05:37 ; Start 05/15/16 at 11:30 Propofol (Diprivan) 20 ml @ As Directed STK-MED ONCE IV ; Start 05/15/16 at 12: 59; Stop 05/15/16 at 13:00; Status DC Lidocaine HCl (Lidocaine Pf 2% Vial) 5 ml STK-MED ONCE .ROUTE ; Start 05/15/16 at 12:59; Stop 05/15/16 at 13:00; Status DC Barium Sulfate (Liquid E-Z Paque) 355 ml 1X ONCE PO Last administered on t 08:40; Start 05/16/16 at 08:15; Stop 05/16/16 at 08:16; Status DC Active Scripts Active Reported Aspir 81 (Aspirin) 81 Mg Tablet.dr 81 Mg PO DAILY Atorvastatin Calcium 10 Mg Tablet 1 Tab PO DAILY Aspirin 81 Mg Tab.chew 1 Tab PO DAILY Avodart (Dutasteride) 0.5 Mg Capsule 1 Cap PO DAILY Vitals/I & O Vital Sign - Last 24 Hours 05/15/16 05/15/16 05/15/16 05/15/16 13:31 15:55 19:00 20:00 Temp 98.9 98.8 101.1 98.9 98.8 101.1 Pulse 64 80 65 Resp 20 16 16 B/P 102/59 131/53 104/49 Pulse Ox 98 98 93 O2 Delivery Room Air Room Air Room Air Room Air 05/15/16 05/15/16 05/15/16 05/16/16 20:26 21:26 23:00 08:00 Temp 97.3 97.3 Pulse 65 Resp 18 18 B/P 106/57 Pulse Ox 98 98 95 O2 Delivery Room Air Room Air Room Air Room Air O2 Flow Rate 3.0 05/16/16 11:30 Temp 96.9 96.9 Pulse 69 Resp 20 B/P 117/66 Pulse Ox 99 O2 Delivery Room Air Intake and Output 05/15/16 05/15/16 05/16/16 15:00 23:00 07:00 Intake Total 260 ml 0 ml Output Total 500 ml Balance 260 ml -500 ml HENRIK YORK MD May 16, 2016 13:33
[2016-05-16 14:48] VITALS: BP 134/68
[2016-05-16 19:00] VITALS: BP 109/59
[2016-05-16] MEDS: TRAMADOL 50 MG TABLET. PO PRN (20:14)
[2016-05-16] MEDS: ATORVASTATIN CALCIUM 10 MG TABLET. PO SCH (20:14)
[2016-05-16 23:00] VITALS: BP 132/69
[2016-05-17 03:05] VITALS: BP 92/66
[2016-05-17] MEDS: PANTOPRAZOLE IV PUSH 40 MG VIAL. IVP SCH (05:03)
[2016-05-17 07:00] VITALS: BP 88/45
[2016-05-17 08:29] VITALS: BP 114/55
[2016-05-17] MEDS: GABAPENTIN 300 MG CAPSULE. PO SCH (08:31)
[2016-05-17] MEDS: DOCUSATE SODIUM 100 MG CAPSULE PO SCH (08:31)
[2016-05-17 10:07] LABS: HEMATOCRIT 21.8 % (39.0-53.0); HEMOGLOBIN 7.5 g/dL (13.0-17.5)
[2016-05-17 11:15] VITALS: BP 95/51
--- NOTE | 2016-05-17 12:19 | PDOC ---
PROGRESS NOTES Chief Complaint Chief Complaint 1. Idiopathic pancreaitis, resolved 2. Melena, gastritis, espohagitis by EGD (05/15) 3. Syncope, likely vagal 4. Hypercalcemia sec to dehydration resolved 5. ARF, hypovolemia, vaso motor likely sec to poor po 6. 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 CHronic constipation 8. Emesis with mild hypokalemia 9. HUGE HIATAL HERNIA History of Present Illness History of Present Illness Hgb dwindling down 7.5 today But pt comfortable reading the papers VS stable Accepted at [facility] COunselled pt and on proper habits of diet and keeping upright post prandial, avoiding meals near bedtime etc re the huge hiatal hernia COunselled 2x in hilda past 48 hrs Dw Gi re dropping hgb HAd large melanotic stool yesterday Vitals Vitals Vital Signs Date Time Temp Pulse Resp B/P Pulse Ox O2 Delivery O2 Flow Rate FiO2 05/17/16 11:15 97.7 59 16 95/51 96 Room Air 97.7 05/16/16 21:14 3.0 Physical Exam General: Alert, Oriented X3, Cooperative Heart: Regular rate, Normal S1, Normal S2, No murmurs Abdomen: Soft, No tenderness Extremities: No clubbing, No cyanosis Skin: No breakdown, No significant lesion Labs LABS Laboratory Tests Test 05/17/16 09:50 Hemoglobin 7.5g/dL (13.0-17.5) Hematocrit 21.8% (39.0-53.0) Mean Corpuscular Hemoglobin Concent 35g/dL (31-37) Review of Systems Review of Systems no SOA, CP or abd pain Assessment and Plan Assessmemt and Plan CPm Await GI rounds If cleared for dc then dc to [facility] today Will need rpt CBC 1-2 weeks post dc Problems Medical Problems: (1) Acute renal failure Status: Acute (2) Nausea and vomiting Status: Acute (3) Pancreatitis Status: Acute Problems: Comment Review of Relevant I have reviewed the following items cordell (where applicable) has been applied. Labs Laboratory Tests Test 05/16/16 05:20 05/17/16 09:50 White Blood Count 8.5x10^3/uL (4.0-11.0) Red Blood Count 2.35x10^6/uL (4.30-5.70) Hemoglobin 7.8g/dL (13.0-17.5) 7.5g/dL (13.0-17.5) Hematocrit 23.1% (39.0-53.0) 21.8% (39.0-53.0) Mean Corpuscular Volume 98fL (79-100) Mean Corpuscular Hemoglobin 33pg (25-35) Mean Corpuscular Hemoglobin Concent 34g/dL (31-37) 35g/dL (31-37) Red Cell Distribution Width 13.3% (11.5-14.5) Platelet Count 153x10^3/uL (140-400) Neutrophils (%) (Auto) 68% (31-73) Lymphocytes (%) (Auto) 16% (24-48) Monocytes (%) (Auto) 15% (0-9) Eosinophils (%) (Auto) 1% (0-3) Basophils (%) (Auto) 0% (0-3) Neutrophils # (Auto) 5.8x10^3uL (1.8-7.7) Lymphocytes # (Auto) 1.4x10^3/uL (1.0-4.8) Monocytes # (Auto) 1.3x10^3/uL (0.0-1.1) Eosinophils # (Auto) 0.1x10^3/uL (0.0-0.7) Basophils # (Auto) 0.0x10^3/uL (0.0-0.2) Sodium Level 146mmol/L (136-145) Potassium Level 3.6mmol/L (3.5-5.1) Chloride Level 114mmol/L (98-107) Carbon Dioxide Level 29mmol/L (21-32) Anion Gap 3 (6-14) Blood Urea Nitrogen 46mg/dL (8-26) Creatinine 1.1mg/dL (0.7-1.3) Estimated GFR (Cockcroft-Gault) 63.8 Glucose Level 111mg/dL (70-99) Calcium Level 8.6mg/dL (8.5-10.1) Laboratory Tests Test 05/17/16 09:50 Hemoglobin 7.5g/dL (13.0-17.5) Hematocrit 21.8% (39.0-53.0) Mean Corpuscular Hemoglobin Concent 35g/dL (31-37) Medications Current Medications Ondansetron HCl 4 mg 4 mg 1X ONCE IV Last administered on 05/14/16 00:13; Start 05/14/16 at 00:30; Stop 05/14/16 at 00:31; Status DC Sodium Chloride (Iv Sodium Chloride 0.9% 500ml Bag) 500 ml @ 500 mls/hr 1X ONCE IV Last administered on 05/14/16 00:14; Start 05/14/16 at 00:30; Stop at 01:29; Status DC Ondansetron HCl 4 mg 4 mg PRN Q8HRS PRN IV NAUSEA/VOMITING; Start 05/14/16 at 01 :15; Stop 05/14/16 at 11:13; Status DC Sodium Chloride (Iv Sodium Chloride 0.9% 1000ml Bag) 1,000 ml @ 125 mls/hr Q8H IV Last administered on 05/14/16 20:41; Start 05/14/16 at 01:11; Stop 05/15/16 at 01:10; Status DC Acetaminophen (Tylenol) 650 mg PRN Q4HRS PRN PO FEVER Last administered on 20:51; Start 05/14/16 at 01:15; Stop 05/15/16 at 01:14; Status DC Iohexol (Omnipaque 240 Mg/ml) 30 ml 1X ONCE PO Last administered on 05/14/16 10:56; Start 05/14/16 at 10:30; Stop 05/14/16 at 10:31; Status DC Polyethylene Glycol (miraLAX PACKET) 17 gm DAILY PO ; Start 05/14/16 at 11:00; Stop 05/15/16 at 12:54; Status DC Ondansetron HCl (Zofran) 4 mg PRN Q6HRS PRN IV NAUSEA/VOMITING; Start 05/14/16 at 11:11 Aspirin (Children'S Aspirin) 81 mg DAILYWBKFT PO ; Start 05/15/16 at 09:00; Status UNV Aspirin (Ecotrin) 81 mg DAILYWBKFT PO Last administered on 05/14/16 11:45; Start 05/14/16 at 12:00; Stop 05/15/16 at 12:54; Status DC Atorvastatin Calcium (Lipitor) 10 mg QHS PO Last administered on 05/16/16 20: 14; Start 05/14/16 at 21:00 Dutasteride (Avodart) 0.5 mg DAILY PO Last administered on 05/14/16 11:44; Start 05/14/16 at 12:00; Stop 05/16/16 at 09:09; Status DC Gabapentin (Neurontin) 300 mg BID PO Last administered on 05/16/16 20:13; Start 05/14/16 at 12:00 Tramadol HCl (Ultram) 50 mg PRN Q6HRS PRN PO PAIN Last administered on 20:14; Start 05/14/16 at 11:15 Docusate Sodium (Colace) 100 mg DAILY PO Last administered on 05/17/16 08:31; Start 05/14/16 at 13:00 Polyethylene Glycol (miraLAX PACKET) 17 gm DAILY PO Last administered on 15:47; Start 05/14/16 at 13:00; Stop 05/14/16 at 16:54; Status DC Magnesium Hydroxide (Milk Of Magnesia) 2,400 mg PRN DAILY PRN PO CONSTIPATION; Start 05/14/16 at 12:15 Barium Sulfate (Liquid E-Z Paque) 355 ml 1X ONCE PO ; Start 05/15/16 at 08:15; Stop 05/15/16 at 08:16; Status DC Pantoprazole Sodium 40 mg 40 mg [id number] IVP Last administered on 05/17/16 05:03 ; Start 05/15/16 at 11:30 Propofol (Diprivan) 20 ml @ As Directed STK-MED ONCE IV ; Start 05/15/16 at 12: 59; Stop 05/15/16 at 13:00; Status DC Lidocaine HCl (Lidocaine Pf 2% Vial) 5 ml STK-MED ONCE .ROUTE ; Start 05/15/16 at 12:59; Stop 05/15/16 at 13:00; Status DC Barium Sulfate (Liquid E-Z Paque) 355 ml 1X ONCE PO Last administered on 08:40; Start 05/16/16 at 08:15; Stop 05/16/16 at 08:16; Status DC Active Scripts Active Reported Aspir 81 (Aspirin) 81 Mg Tablet.dr 81 Mg PO DAILY Atorvastatin Calcium 10 Mg Tablet 1 Tab PO DAILY Aspirin 81 Mg Tab.chew 1 Tab PO DAILY Avodart (Dutasteride) 0.5 Mg Capsule 1 Cap PO DAILY Vitals/I & O Vital Sign - Last 24 Hours 05/16/16 05/16/16 05/16/16 05/16/16 14:48 19:00 19:56 20:14 Temp 97.9 98.0 97.9 98.0 Pulse 69 69 Resp 20 20 18 B/P 134/68 109/59 Pulse Ox 96 98 96 O2 Delivery Room Air Room Air Room Air Room Air 05/16/16 05/16/16 05/17/16 05/17/16 21:14 23:00 03:05 07:00 Temp 97.3 98.2 97.7 97.3 98.2 97.7 Pulse 69 63 63 Resp 18 20 20 20 B/P 132/69 92/66 88/45 Pulse Ox 96 97 96 95 O2 Delivery Room Air Room Air Room Air Room Air O2 Flow Rate 3.0 05/17/16 05/17/16 05/17/16 08:00 08:29 11:15 Temp 97.7 97.7 Pulse 67 59 Resp 20 16 B/P 114/55 95/51 Pulse Ox 97 96 O2 Delivery Room Air Room Air Room Air Intake and Output 05/16/16 05/16/16 05/17/16 15:00 23:00 07:00 Intake Total 240 ml 120 ml Output Total 400 ml Balance 240 ml -280 ml HENRIK YORK MD May 17, 2016 12:19
--- NOTE | 2016-05-17 13:19 | PDOC3 ---
Discharge Summary Visit Information Date of Admission: May 14, 2016 Date of Discharge: May 17, 2016 Admitting Diagnosis Comment: 1. Idiopathic pancreaitis, resolved 2. Melena, gastritis, espohagitis by EGD (05/15) 3. Syncope, likely vagal 4. Hypercalcemia sec to dehydration resolved 5. ARF, hypovolemia, vaso motor likely sec to poor po 6. 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 CHronic constipation 8. Emesis with mild hypokalemia 9. HUGE HIATAL HERNIA Final Diagnosis Problems Medical Problems: (1) Acute renal failure Status: Acute (2) Hiatal hernia Status: Acute (3) Nausea and vomiting Status: Acute (4) Pancreatitis Status: Acute Brief Hospital Course Allergies Allergies Coded Allergies Type Severity Reaction Last Updated Verified No Known Drug Allergies 05/15/16 No Vital Signs Vital Signs Date Time Temp Pulse Resp B/P Pulse Ox O2 Delivery O2 Flow Rate FiO2 05/17/16 11:15 97.7 59 16 95/51 96 Room Air 97.7 05/16/16 21:14 3.0 Lab Results Laboratory Tests Test 05/16/16 05:20 05/17/16 09:50 White Blood Count 8.5x10^3/uL (4.0-11.0) Red Blood Count 2.35x10^6/uL (4.30-5.70) Hemoglobin 7.8g/dL (13.0-17.5) 7.5g/dL (13.0-17.5) Hematocrit 23.1% (39.0-53.0) 21.8% (39.0-53.0) Mean Corpuscular Volume 98fL (79-100) Mean Corpuscular Hemoglobin 33pg (25-35) Mean Corpuscular Hemoglobin Concent 34g/dL (31-37) 35g/dL (31-37) Red Cell Distribution Width 13.3% (11.5-14.5) Platelet Count 153x10^3/uL (140-400) Neutrophils (%) (Auto) 68% (31-73) Lymphocytes (%) (Auto) 16% (24-48) Monocytes (%) (Auto) 15% (0-9) Eosinophils (%) (Auto) 1% (0-3) Basophils (%) (Auto) 0% (0-3) Neutrophils # (Auto) 5.8x10^3uL (1.8-7.7) Lymphocytes # (Auto) 1.4x10^3/uL (1.0-4.8) Monocytes # (Auto) 1.3x10^3/uL (0.0-1.1) Eosinophils # (Auto) 0.1x10^3/uL (0.0-0.7) Basophils # (Auto) 0.0x10^3/uL (0.0-0.2) Sodium Level 146mmol/L (136-145) Potassium Level 3.6mmol/L (3.5-5.1) Chloride Level 114mmol/L (98-107) Carbon Dioxide Level 29mmol/L (21-32) Anion Gap 3 (6-14) Blood Urea Nitrogen 46mg/dL (8-26) Creatinine 1.1mg/dL (0.7-1.3) Estimated GFR (Cockcroft-Gault) 63.8 Glucose Level 111mg/dL (70-99) Calcium Level 8.6mg/dL (8.5-10.1) Laboratory Tests Test 05/17/16 09:50 Hemoglobin 7.5g/dL (13.0-17.5) Hematocrit 21.8% (39.0-53.0) Mean Corpuscular Hemoglobin Concent 35g/dL (31-37) Brief Hospital Course Mr. Ulloa is a 85 old admitted for mild pancreatitis, his sx was vomiting , PAnceratitis resolved in a day or 2, no GB stones, TG ok, non drinker, But course remarkable for huge melena, drop in hgb NOT needing B. STat EGD done showed huge hiatal hernia all the way to chest, and findings of chronic vomiting /GERD as evidence by esophagitis and gastitis, started on PPI BID by GI, Hgb 7.5 on dc, asdvised rpt CBC in 1 weeks time Dw pt and - very involved in care Pls refer to my notes today - porgress note PE: pt seen and examiend DispO; [facility] Proc: stat EGD Discharge Information Condition at Discharge: Improved, Stable Disposition/Orders: Other (snf) Scheduled Aspirin (Aspirin) 1 TAB PO DAILY (Reported) Aspirin (Aspir 81) 81 MG PO DAILY (Reported) Atorvastatin Calcium (Atorvastatin Calcium) 1 TAB PO DAILY (Reported) Dutasteride (Avodart) 1 CAP PO DAILY (Reported) HENRIK YORK MD May 17, 2016 13:19
[2016-05-17] MEDS ORDERED: PANT40TA3 PO (13:32)
--- NOTE | 2016-05-17 13:33 | PDOC ---
G I PROGRESS NOTE Subjective No complaints. Objective Note plans for discharge. Physical Exam Abdomen soft, not distended nor tender. Review of Relevant I have reviewed the following items cordell (where applicable) has been applied. Labs Laboratory Tests Test 05/16/16 05:20 05/17/16 09:50 White Blood Count 8.5x10^3/uL (4.0-11.0) Red Blood Count 2.35x10^6/uL (4.30-5.70) Hemoglobin 7.8g/dL (13.0-17.5) 7.5g/dL (13.0-17.5) Hematocrit 23.1% (39.0-53.0) 21.8% (39.0-53.0) Mean Corpuscular Volume 98fL (79-100) Mean Corpuscular Hemoglobin 33pg (25-35) Mean Corpuscular Hemoglobin Concent 34g/dL (31-37) 35g/dL (31-37) Red Cell Distribution Width 13.3% (11.5-14.5) Platelet Count 153x10^3/uL (140-400) Neutrophils (%) (Auto) 68% (31-73) Lymphocytes (%) (Auto) 16% (24-48) Monocytes (%) (Auto) 15% (0-9) Eosinophils (%) (Auto) 1% (0-3) Basophils (%) (Auto) 0% (0-3) Neutrophils # (Auto) 5.8x10^3uL (1.8-7.7) Lymphocytes # (Auto) 1.4x10^3/uL (1.0-4.8) Monocytes # (Auto) 1.3x10^3/uL (0.0-1.1) Eosinophils # (Auto) 0.1x10^3/uL (0.0-0.7) Basophils # (Auto) 0.0x10^3/uL (0.0-0.2) Sodium Level 146mmol/L (136-145) Potassium Level 3.6mmol/L (3.5-5.1) Chloride Level 114mmol/L (98-107) Carbon Dioxide Level 29mmol/L (21-32) Anion Gap 3 (6-14) Blood Urea Nitrogen 46mg/dL (8-26) Creatinine 1.1mg/dL (0.7-1.3) Estimated GFR (Cockcroft-Gault) 63.8 Glucose Level 111mg/dL (70-99) Calcium Level 8.6mg/dL (8.5-10.1) Laboratory Tests Test 05/17/16 09:50 Hemoglobin 7.5g/dL (13.0-17.5) Hematocrit 21.8% (39.0-53.0) Mean Corpuscular Hemoglobin Concent 35g/dL (31-37) Hemoglobin drop probably w/in lab's error of measurement. Medications Current Medications Ondansetron HCl 4 mg 4 mg 1X ONCE IV Last administered on 05/14/16 00:13; Start 05/14/16 at 00:30; Stop 05/14/16 at 00:31; Status DC Sodium Chloride (Iv Sodium Chloride 0.9% 500ml Bag) 500 ml @ 500 mls/hr 1X ONCE IV Last administered on 05/14/16 00:14; Start 05/14/16 at 00:30; Stop at 01:29; Status DC Ondansetron HCl 4 mg 4 mg PRN Q8HRS PRN IV NAUSEA/VOMITING; Start 05/14/16 at 01 :15; Stop 05/14/16 at 11:13; Status DC Sodium Chloride (Iv Sodium Chloride 0.9% 1000ml Bag) 1,000 ml @ 125 mls/hr Q8H IV Last administered on 05/14/16 20:41; Start 05/14/16 at 01:11; Stop 05/15/16 at 01:10; Status DC Acetaminophen (Tylenol) 650 mg PRN Q4HRS PRN PO FEVER Last administered on 20:51; Start 05/14/16 at 01:15; Stop 05/15/16 at 01:14; Status DC Iohexol (Omnipaque 240 Mg/ml) 30 ml 1X ONCE PO Last administered on 05/14/16 10:56; Start 05/14/16 at 10:30; Stop 05/14/16 at 10:31; Status DC Polyethylene Glycol (miraLAX PACKET) 17 gm DAILY PO ; Start 05/14/16 at 11:00; Stop 05/15/16 at 12:54; Status DC Ondansetron HCl (Zofran) 4 mg PRN Q6HRS PRN IV NAUSEA/VOMITING; Start 05/14/16 at 11:11 Aspirin (Children'S Aspirin) 81 mg DAILYWBKFT PO ; Start 05/15/16 at 09:00; Status UNV Aspirin (Ecotrin) 81 mg DAILYWBKFT PO Last administered on 05/14/16 11:45; Start 05/14/16 at 12:00; Stop 05/15/16 at 12:54; Status DC Atorvastatin Calcium (Lipitor) 10 mg QHS PO Last administered on 05/16/16 20: 14; Start 05/14/16 at 21:00 Dutasteride (Avodart) 0.5 mg DAILY PO Last administered on 05/14/16 11:44; Start 05/14/16 at 12:00; Stop 05/16/16 at 09:09; Status DC Gabapentin (Neurontin) 300 mg BID PO Last administered on 05/16/16 20:13; Start 05/14/16 at 12:00 Tramadol HCl (Ultram) 50 mg PRN Q6HRS PRN PO PAIN Last administered on 20:14; Start 05/14/16 at 11:15 Docusate Sodium (Colace) 100 mg DAILY PO Last administered on 05/17/16 08:31; Start 05/14/16 at 13:00 Polyethylene Glycol (miraLAX PACKET) 17 gm DAILY PO Last administered on 15:47; Start 05/14/16 at 13:00; Stop 05/14/16 at 16:54; Status DC Magnesium Hydroxide (Milk Of Magnesia) 2,400 mg PRN DAILY PRN PO CONSTIPATION; Start 05/14/16 at 12:15 Barium Sulfate (Liquid E-Z Paque) 355 ml 1X ONCE PO ; Start 05/15/16 at 08:15; Stop 05/15/16 at 08:16; Status DC Pantoprazole Sodium 40 mg 40 mg [id number] IVP Last administered on 05/17/16 05:03 ; Start 05/15/16 at 11:30; Stop 05/17/16 at 12:24; Status DC Propofol (Diprivan) 20 ml @ As Directed STK-MED ONCE IV ; Start 05/15/16 at 12: 59; Stop 05/15/16 at 13:00; Status DC Lidocaine HCl (Lidocaine Pf 2% Vial) 5 ml STK-MED ONCE .ROUTE ; Start 05/15/16 at 12:59; Stop 05/15/16 at 13:00; Status DC Barium Sulfate (Liquid E-Z Paque) 355 ml 1X ONCE PO Last administered on t 08:40; Start 05/16/16 at 08:15; Stop 05/16/16 at 08:16; Status DC Pantoprazole Sodium (Protonix) 40 mg BIDAC PO ; Start 05/17/16 at 16:30 Active Scripts Active Reported Aspir 81 (Aspirin) 81 Mg Tablet.dr 81 Mg PO DAILY Atorvastatin Calcium 10 Mg Tablet 1 Tab PO DAILY Aspirin 81 Mg Tab.chew 1 Tab PO DAILY Avodart (Dutasteride) 0.5 Mg Capsule 1 Cap PO DAILY Vitals/I & O Vital Sign - Last 24 Hours 05/16/16 05/16/16 05/16/16 05/16/16 14:48 19:00 19:56 20:14 Temp 97.9 98.0 97.9 98.0 Pulse 69 69 Resp 20 20 18 B/P 134/68 109/59 Pulse Ox 96 98 96 O2 Delivery Room Air Room Air Room Air Room Air 05/16/16 05/16/16 05/17/16 05/17/16 21:14 23:00 03:05 07:00 Temp 97.3 98.2 97.7 97.3 98.2 97.7 Pulse 69 63 63 Resp 18 20 20 20 B/P 132/69 92/66 88/45 Pulse Ox 96 97 96 95 O2 Delivery Room Air Room Air Room Air Room Air O2 Flow Rate 3.0 05/17/16 05/17/16 05/17/16 08:00 08:29 11:15 Temp 97.7 97.7 Pulse 67 59 Resp 20 16 B/P 114/55 95/51 Pulse Ox 97 96 O2 Delivery Room Air Room Air Room Air Intake and Output 05/16/16 05/16/16 05/17/16 15:00 23:00 07:00 Intake Total 240 ml 120 ml Output Total 400 ml Balance 240 ml -280 ml Problem List Problems Medical Problems: (1) Acute renal failure Status: Acute (2) Hiatal hernia Status: Acute (3) Nausea and vomiting Status: Acute (4) Pancreatitis Status: Acute Assessment Intrathoracic stomach; intermittent volvulus? Severe esophagitis from emesis. Plan of Care Note OK with me to discharge. Would keep on PPI chronically. WILBERTO ROBERTS MD May 17, 2016 13:33
[2016-05-17 15:00] VITALS: BP 123/66
[2016-05-17] MEDS ORDERED: PANTOPRAZOLE 40 MG TABLET. PO SCH (16:30)
== END 2016-05-17 16:30 | DRG 438 ==
LOC: ER 22:41 → 5 NORTH 05-14 00:20
PROVIDERS: ADMIT Internal Medicine; ATTEND Internal Medicine
PROC: 0DJ08ZZ Inspection of Upper Intestinal Tract, Via Natural or Artificial Opening Endoscopic (ICD-10-PCS; principal; 2016-05-15 13:00)
DX: K85.90 Acute pancreatitis without necrosis or infection, unspecified (principal); N17.0 Acute kidney failure with tubular necrosis; R65.10 Systemic inflammatory response syndrome (SIRS) of non-infectious origin without acute organ dysfunction; D64.9 Anemia, unspecified; E78.5 Hyperlipidemia, unspecified; E83.52 Hypercalcemia; E86.0 Dehydration; E86.1 Hypovolemia; E87.6 Hypokalemia; F03.90 Unspecified dementia, unspecified severity, without behavioral disturbance, psychotic disturbance, mood disturbance, and anxiety; H91.90 Unspecified hearing loss, unspecified ear; I10 Essential (primary) hypertension; J61 Pneumoconiosis due to asbestos and other mineral fibers; K20.9 Esophagitis, unspecified; K25.9 Gastric ulcer, unspecified as acute or chronic, without hemorrhage or perforation; K29.70 Gastritis, unspecified, without bleeding; K44.9 Diaphragmatic hernia without obstruction or gangrene; D12.6 Benign neoplasm of colon, unspecified; K76.89 Other specified diseases of liver; N40.0 Benign prostatic hyperplasia without lower urinary tract symptoms; Z79.82 Long term (current) use of aspirin; Z80.0 Family history of malignant neoplasm of digestive organs; Z87.891 Personal history of nicotine dependence
CPT/HCPCS: 36415; 74176; 74240; 76705; 80048; 80061; 80076; 81001; 83690; 85007; 85014; 85018; 85027; 93005; 96361; 96374; C9113; J2405; J2704; J7030; J7040; Q9966; 97116; 97530; 97535; 99285-25

== ENCOUNTER → 2016-09-25 | Outpatient (CLI) | payer MEDICARE, BC ==
[~2016-09-25] MED LIST changes: +CONTRAST GIVEN MC PRN; +IOHEXOL 350 MG/ML 100 ML VIAL. IV ONE; +PANT40TA3 PO
[2016-09-25 09:35] LABS: GFR 71.2
--- NOTE | 2016-09-25 11:08 | RAD ---
Indication abdominal aortic aneurysm. Pre and postcontrast imaging through the abdomen and pelvis was performed. 90 cc of Omnipaque 350 was administered intravenously. Note is made of a previous examination May 14, 2016. MIP images were generated and reviewed. Volume rendered images were also generated and reviewed. Moderately large hiatus hernia is again seen. 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 No acute finding is seen at either lung base. Known large cyst associated with the liver is similar to the previous exam. There is a vascular mass in the right lobe of the liver measuring approximately 9 mm in greatest dimension. It is incompletely evaluated on this exam but may represent a hemangioma. Clinical correlation as to the necessity for additional hepatic imaging advised. (It is not readily apparent on the previous exam. This may be secondary to the fact that images were obtained during the arterial phase as opposed to portal venous phase imaging as on prior contrast exams). The spleen is unremarkable. The gallbladder is grossly normal. No pancreatic abnormality is seen. No adrenal or significant renal pathology is seen. There are parapelvic and cortical cysts, small, associated with the left kidney. Known infrarenal abdominal aortic aneurysm is seen measuring maximally approximately 3.3 cm. It is unchanged relative to the previous exam. An acute finding in the abdomen is not seen. In the pelvis the prostate is slightly enlarged. No acute finding is seen. There are degenerative changes in the lumbar spine predominantly centered at L3-4. IMPRESSION: No acute finding seen in the abdomen or pelvis. Unchanged infrarenal abdominal aortic aneurysm measuring approximately 3.3 cm in greatest dimension. Large hiatus hernia. 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 9 mm vascular mass in the right lobe of the liver. The etiology is unclear. It may represent a flash hemangioma. Large cyst occupying the left lobe of the liver appears unchanged Chronic musculoskeletal changes PQRS Compliance Statement: One or more of the following individualized dose reduction techniques were utilized for this examination: 1. Automated exposure control 2. Adjustment of the mA and/or kV according to patient size 3. Use of iterative reconstruction technique
== END | disposition home or self-care (01) ==
LOC: CT 09:00
PROVIDERS: ATTEND Internal Medicine Cardiovascular Disease
DX: I71.4 Abdominal aortic aneurysm, without rupture (principal); K44.9 Diaphragmatic hernia without obstruction or gangrene; R16.0 Hepatomegaly, not elsewhere classified
CPT/HCPCS: 36415; 74174; 82565; Q9967

== ENCOUNTER 2016-11-19 19:58 | Inpatient (IN) | payer MEDICARE, BC ==
[~2016-11-19] VITALS: Ht 180.3 cm; Wt 77.3 kg
[~2016-11-19 19:58] MED LIST changes: +ASPI-630 PO; -ASPI81TA2 PO; -CONTRAST GIVEN MC PRN; -IOHEXOL 350 MG/ML 100 ML VIAL. IV ONE
[2016-11-19] MEDS ORDERED: IV NORMAL SALINE 1000ML BAG 1,000 ML IV ONE (20:45)
[2016-11-19 20:53] LABS: BASO % 0 % (0-3); EOS % 0 % (0-3); HEMATOCRIT 41.9 % (39.0-53.0); HEMOGLOBIN 13.9 g/dL (13.0-17.5); LYMPH # 0.6 x10^3/uL (1.0-4.8); LYMPH % 3 % (24-48); MEAN CORPUSCULAR HEMOGLOBIN 34 pg (25-35); MEAN CORPUSCULAR HGB CONC 33 g/dL (31-37); MEAN CORPUSCULAR VOLUME 101 fL (79-100); MONO % 8 % (0-9); NEUT % 89 % (31-73); PLATELET COUNT 202 x10^3/uL (140-400); RED BLOOD COUNT 4.15 x10^6/uL (4.30-5.70); WHITE BLOOD COUNT 22.2 x10^3/uL (4.0-11.0)
[2016-11-19 21:03] LABS: CREATININE 1.5 mg/dL (0.7-1.3); GFR 44.5; POTASSIUM 3.4 mmol/L (3.5-5.1)
[2016-11-19 21:05] LABS: BILIRUBIN,URINE NEGATIVE (NEG); GLUCOSE,URINE NEGATIVE (NEG); NITRITE,URINE NEGATIVE (NEG); PH,URINE 5.5; PROTEIN,URINE 30 mg/dL (NEG-TRACE); UROBILINOGEN,URINE 0.2 mg/dL (0.2 mg/dL)
[2016-11-19 21:16] LABS: ALBUMIN 3.8 g/dL (3.4-5.0); DIRECT BILIRUBIN 0.2 mg/dL (0.0-0.2); TOTAL BILIRUBIN 0.9 mg/dL (0.2-1.0); TOTAL PROTEIN 7.5 g/dL (6.4-8.2)
[2016-11-19 21:18] LABS: BACTERIA,URINE 0 /HPF (0-FEW); RBC,URINE OCC /HPF (0-2)
[2016-11-19 21:19] LABS: SQUAMOUS EPITHELIAL CELL,UR FEW /LPF
[2016-11-19] MEDS ORDERED: FAMOTIDINE 20 MG/2 ML VIAL IVP ONE (21:30)
[2016-11-19] MEDS ORDERED: MORPHINE SULFATE 2 MG/ML DISP.SYRIN. IV PRN (21:45)
[2016-11-19] MEDS ORDERED: ONDANSETRON PF 4 MG/2 ML VIAL. IV PRN (21:45)
--- NOTE | 2016-11-19 21:58 | PHYS DOC ---
Past Medical History Past Medical History: Dementia, GERD, High Cholesterol, Hypertension Additional Past Medical Histor: CONSTIPATION, Hard Of Hearing, R ARM WEAKNESS, CATARACTS Past Surgical History: Pacemaker Alcohol Use: None Drug Use: None Adult General Chief Complaint Chief Complaint: HEMATEMESIS/VOMITING BLOOD HPI HPI 86 YO M presenting to the ED with hematemesis today. is here with the patient today and reports that she found to puddles of dark liquid that she is concerned may have been blood. The patient is on Plavix. reports the patient also hit his head yesterday but did not lose consciousness. Onset today. Location GI tract. Duration intermittent. No alleviating or exacerbating factors present he does have mild abdominal pain in the epigastrium without radiation. Review of systems is negative for syncope neck pain chest pain shortness of breath fevers or chills. He denies numbness weakness or tingling. He denies vision changes. All other review of systems is negative unless otherwise noted in history of present illness. ED course: 86-year-old woman presenting to the emergency department with upper GI bleed. Triage vital signs afebrile with normal heart rate. Blood pressure mildly elevated. Blood work sent. IV established. IV fluids administered. Patient has a significant leukocytosis. He is not febrile or tachycardic here. He does have a elevated BUN suggestive of an upper GI bleed. Troponin is just above the reference range of normal likely type II NSTEMI. Unfortunately, because the patient is currently bleeding in his GI tract and will likely be more harmful than helpful to give him aspirin or heparin or Lovenox. Pertinent physical exam findings: The patient's abdomen is nondistended soft nontender and without rebound tenderness. IV Pepcid given. We do not have protonic's in our hospital this time. Negative McBurney's point. Negative Malone sign. The patient was then admitted to our ICU for further evaluation workup and care. Dr. Williamson is the admitting physician with GI consultation placed. Cardiology consult placed as well. Review of Systems Review of Systems SEE ABOVE. Current Medications Current Medications Current Medications Medications (Trade) Dose Ordered Sig/Linda Start Time Stop Time Status Last Admin Dose Admin Sodium Chloride 1,000 ml @ 1,000 mls/hr 1X ONCE 11/19/16 20:45 11/19/16 21:44 DC 11/19/16 20:55 1,000 MLS/HR Allergies Allergies Allergies Coded Allergies Type Severity Reaction Last Updated Verified No Known Drug Allergies 05/15/16 No Physical Exam Physical Exam SEE ABOVE Constitutional: Well developed, well nourished, no acute distress, non-toxic appearance. [] HENT: Normocephalic, atraumatic, bilateral external ears normal, oropharynx moist, no oral exudates, nose normal. [] Eyes: PERRLA, EOMI, conjunctiva normal, no discharge. [] Neck: Normal range of motion, no tenderness, supple, no stridor. [] Cardiovascular:Heart rate regular rhythm, no murmur [] Lungs & Thorax: Bilateral breath sounds clear to auscultation [] Abdomen: Bowel sounds normal, soft, no tenderness, no masses, no pulsatile masses. [] Skin: Warm, dry, no erythema, no rash. [] Back: No tenderness, no CVA tenderness. [] Extremities: No tenderness, no cyanosis, no clubbing, ROM intact, no edema. [] Neurologic: Alert and oriented X 3, normal motor function, normal sensory function, no focal deficits noted. [] Psychologic: Affect normal, judgement normal, mood normal. [] Current Patient Data Vital Signs Vital Signs Date Time Temp Pulse Resp B/P (MAP) Pulse Ox O2 Delivery O2 Flow Rate FiO2 11/19/16 21:07 86 19 148/78 (101) 97 Room Air 11/19/16 20:07 98.2 98.2 Lab Values Laboratory Tests Test 11/19/16 20:17 11/19/16 20:56 White Blood Count 22.2 x10^3/uL (4.0-11.0) H Red Blood Count 4.15 x10^6/uL (4.30-5.70) L Hemoglobin 13.9 g/dL (13.0-17.5) Hematocrit 41.9 % (39.0-53.0) Mean Corpuscular Volume 101 fL (79-100) H Mean Corpuscular Hemoglobin 34 pg (25-35) Mean Corpuscular Hemoglobin Concent 33 g/dL (31-37) Red Cell Distribution Width 13.0 % (11.5-14.5) Platelet Count 202 x10^3/uL (140-400) Neutrophils (%) (Auto) 89 % (31-73) H Lymphocytes (%) (Auto) 3 % (24-48) L Monocytes (%) (Auto) 8 % (0-9) Eosinophils (%) (Auto) 0 % (0-3) Basophils (%) (Auto) 0 % (0-3) Neutrophils # (Auto) 19.7 x10^3uL (1.8-7.7) H Lymphocytes # (Auto) 0.6 x10^3/uL (1.0-4.8) L Monocytes # (Auto) 1.9 x10^3/uL (0.0-1.1) H Eosinophils # (Auto) 0.0 x10^3/uL (0.0-0.7) Basophils # (Auto) 0.0 x10^3/uL (0.0-0.2) Platelet Estimate Pending Sodium Level 143 mmol/L (136-145) Potassium Level 3.4 mmol/L (3.5-5.1) L Chloride Level 104 mmol/L (98-107) Carbon Dioxide Level 28 mmol/L (21-32) Anion Gap 11 (6-14) Blood Urea Nitrogen 50 mg/dL (8-26) H Creatinine 1.5 mg/dL (0.7-1.3) H Estimated GFR (Cockcroft-Gault) 44.5 Glucose Level 109 mg/dL (70-99) H Lactic Acid Level 3.5 mmol/L (0.4-2.0) H Calcium Level 10.0 mg/dL (8.5-10.1) Total Bilirubin 0.9 mg/dL (0.2-1.0) Direct Bilirubin 0.2 mg/dL (0.0-0.2) Aspartate Amino Transferase (AST) 69 U/L (15-37) H Alanine Aminotransferase (ALT) 27 U/L (16-63) Alkaline Phosphatase 64 U/L (46-116) Troponin I Quantitative 0.056 ng/mL (0.000-0.055) Total Protein 7.5 g/dL (6.4-8.2) Albumin 3.8 g/dL (3.4-5.0) Lipase 274 U/L (73-393) Urine Collection Type Unknown Urine Color Yellow Urine Clarity Clear Urine pH 5.5 Urine Specific [place] >=1.030 Urine Protein 30 mg/dL (NEG-TRACE) Urine Glucose (UA) Negative mg/dL (NEG) Urine Ketones (Stick) Negative mg/dL (NEG) Urine Blood Trace (NEG) Urine Nitrite Negative (NEG) Urine Bilirubin Negative (NEG) Urine Urobilinogen Dipstick 0.2 mg/dL (0.2 mg/dL) Urine Leukocyte Esterase Negative (NEG) Urine RBC Occ /HPF (0-2) Urine WBC 5-10 /HPF (0-4) Urine Squamous Epithelial Cells Few /LPF Urine Transitional Epithelial Cells Few /LPF Urine Renal Epithelial Cells Occ /LPF Urine Bacteria 0 /HPF (0-FEW) Urine Hyaline Casts Moderate /HPF Urine Mucus Mod /LPF Laboratory Tests 11/19/16 20:17 Laboratory Tests 11/19/16 20:17 EKG EKG [] Radiology/Procedures Radiology/Procedures [] Course & Med Decision Making Course & Med Decision Making Pertinent Labs and Imaging studies reviewed. (See chart for details) [] Dragon Disclaimer Dragon Disclaimer This electronic medical record was generated, in whole or in part, using a voice recognition dictation system. Departure Departure Impression: Primary Impression: Upper GI bleeding Disposition: ADMITTED INPATIENT Admitting Physician: Artemio Williamson Condition: IMPROVED Referrals: GERSON TODD Jr, MD (PCP) KAYLA CAAL MD Nov 19, 2016 21:58
[2016-11-19 22:30] LABS: PLT ESTIMATE ADEQUATE (ADEQUATE); TOXIC VACUOLATION SLIGHT
--- NOTE | 2016-11-19 22:44 | RAD ---
CT HEAD WO CONTRAST Clinical indications: HEAD INJURY POST FALL, HX OF HTN, PRIOR SENT Technique: Noncontrast axial cross sectional scanning of the head was performed. COMPARISON: July 19, 2015. Findings: No acute intracranial hemorrhage or midline shift or mass-effect or extra-axial fluid collection is seen. The ventricles are prominent but stable. No focal hypodense area or sulci effacement is seen to indicate an acute infarct or edema radiographically. No skull fracture or pneumocephalus is seen. No opacification of the mastoid sinuses or the paranasal sinuses is seen. The maxillary sinuses are not completely seen in this study. Impression: No new intracranial abnormality is seen. PQRS compliance Statement One or more of the following individualized dose reduction techniques were utilized for this study: 1. Automated exposure control 2. Adjustment of the mA and/or kV according to patient size 3. Use of iterative reconstruction technique Electronically signed by: Vicente Shore MD (11/19/2016 10:41 PM) [email or web address]
--- NOTE | 2016-11-19 22:55 | RAD ---
Abdominal and Pelvis CT, Without Contrast: History: Leukocytosis and abdominal pain Comparison: September 25, 2016. Procedure: Axial images are obtained of the abdomen and pelvis, without IV or oral contrast. CT Abdomen without Contrast: Findings: Evaluation of solid organs is limited without contrast. Evaluation of stomach and bowel is limited without oral contrast. There is calcified pleural plaque at the lung bases. There is a large hiatal hernia. Liver: The large cyst in the left lobe of the liver was seen previously.. Spleen: Normal. Pancreas: Normal. Adrenal Glands: Normal. Kidneys: Normal. There is no free air or free fluid. There is no lymphadenopathy. There is an infrarenal abdominal aortic aneurysm measuring as great as 3.2 cm in width unchanged from prior study. The gallbladder is not fully distended but appears within normal limits. Impression: Please see CT Pelvis without Contrast. End Impression. CT Pelvis without Contrast: Findings: The urinary bladder appears normal. There is no free fluid. There is no lymphadenopathy. There is no pericolonic inflammation identified. The appendix is not identified. Impression: No acute findings. Stable appearance of the abdomen and pelvis. End impression PQRS Compliance Statement: One or more of the following individualized dose reduction techniques were utilized for this examination: 1. Automated exposure control 2. Adjustment of the mA and/or kV according to patient size 3. Use of iterative reconstruction technique Electronically signed by: Kumar Ewing III, MD (11/19/2016 10:52 PM) [facility]
[2016-11-19 23:00] VITALS: BP 128/80
[2016-11-20] MEDS: IV NORMAL SALINE 1000ML BAG 1,000 ML IV SCH ×4 (00:59→17:53)
[2016-11-20 06:00] LABS: BASO % 0 % (0-3); EOS % 0 % (0-3); HEMATOCRIT 36.6 % (39.0-53.0); HEMOGLOBIN 12.9 g/dL (13.0-17.5); LYMPH # 0.6 x10^3/uL (1.0-4.8); LYMPH % 4 % (24-48); MEAN CORPUSCULAR HEMOGLOBIN 35 pg (25-35); MEAN CORPUSCULAR HGB CONC 35 g/dL (31-37); MEAN CORPUSCULAR VOLUME 99 fL (79-100); MONO % 11 % (0-9); NEUT % 85 % (31-73); PLATELET COUNT 177 x10^3/uL (140-400); RED BLOOD COUNT 3.71 x10^6/uL (4.30-5.70); RED CELL DISTRIBUTION WIDTH 13.1 % (11.5-14.5); WHITE BLOOD COUNT 18.7 x10^3/uL (4.0-11.0)
[2016-11-20 06:03] LABS: POTASSIUM 3.7 mmol/L (3.5-5.1)
--- NOTE | 2016-11-20 07:08 | EKG ---
[facility] [address] [place] [address] Test Date: 2016-11-19 Test Time: 20:09:37 Pat Name: CHARIS JEFFERSON Department: Room: [facility] Gender: M Interior Decorator Painting: : 1930 Requested By: KAYLA CAAL Order Number: [id number] Reading MD: Stanford Interiano Measurements Intervals [place] Rate: 84 P: 16 NV: 246 QRS: -68 QRSD: 172 T: 129 QT: 404 QTc: 481 Interpretive Statements ATRIAL SENSED VENTRICULAR PACED RHYTHM Electronically Signed On 12-02-2016 14:21:39 CDT by Stanford Interiano
[2016-11-20 07:33] VITALS: BP 153/63
--- NOTE | 2016-11-20 10:26 | PDOC2 ---
GI CONSULT Reason For Consult: Upper GI bleed HPI: HPI: 86 y/o male known to GI/Dr. Mendoza from admission earlier this year. At that time had n/v and underwent EGD which showed acute esophagitis and large hiatal hernia w/ paraesophageal component and ulceration. Also had CT and UGI series, below. Concern for intermittent volvulus. Saw Dr. Partida, high risk for surgery. Was discharged, advised to continue PPI. I saw him alone in his room this morning, history difficult. Reviewed chart, seems had some vomiting and chest discomfort, possibly emesis contained some red blood. CT again demonstrated large hiatal hernia w/ complex orientation. He thinks has continued PPI, names Prilosec. Was given IV Pepcid in ER, GI asked to see along w/ cardiology for elevated troponin. H/o constipation. Colonoscopy in 2016 was normal, previously had adenomatous polyp in 2008. Takes ASA 81mg at home, ER note mentions Plavix; he unaware of this. PMH: PMH: dementia, hiatal hernia, pacemaker, constipation, colon polyp, BPH, HLD FH: Family History: Cancer Social History: Smoke: Quit (previously occasional cigar) ALCOHOL: occassional (wine w/ dinner sometimes) Drugs: None ROS: GEN: Denies fevers, chills, sweats HEENT: Denies blurred vision, sore throat CV: +chest pain RESP: Denies shortness of air, cough GI: Per HPI : Denies hematuria, dysuria ENDO: Denies weight changes NEURO: +dementia MSK: Denies weakness, joint pain/swelling SKIN: Denies jaundice, pruritus Vitals: Vitals: Vital Signs Date Time Temp Pulse Resp B/P (MAP) Pulse Ox O2 Delivery O2 Flow Rate FiO2 11/20/16 07:33 97.5 74 19 153/63 (93) 96 Room Air 97.5 Labs: Labs: Laboratory Tests Test 11/19/16 20:17 11/19/16 20:56 11/20/16 05:25 White Blood Count 22.2 x10^3/uL (4.0-11.0) 18.7 x10^3/uL (4.0-11.0) Red Blood Count 4.15 x10^6/uL (4.30-5.70) 3.71 x10^6/uL (4.30-5.70) Hemoglobin 13.9 g/dL (13.0-17.5) 12.9 g/dL (13.0-17.5) Hematocrit 41.9 % (39.0-53.0) 36.6 % (39.0-53.0) Mean Corpuscular Volume 101 fL (79-100) 99 fL (79-100) Mean Corpuscular Hemoglobin 34 pg (25-35) 35 pg (25-35) Mean Corpuscular Hemoglobin Concent 33 g/dL (31-37) 35 g/dL (31-37) Red Cell Distribution Width 13.0 % (11.5-14.5) 13.1 % (11.5-14.5) Platelet Count 202 x10^3/uL (140-400) 177 x10^3/uL (140-400) Neutrophils (%) (Auto) 89 % (31-73) 85 % (31-73) Lymphocytes (%) (Auto) 3 % (24-48) 4 % (24-48) Monocytes (%) (Auto) 8 % (0-9) 11 % (0-9) Eosinophils (%) (Auto) 0 % (0-3) 0 % (0-3) Basophils (%) (Auto) 0 % (0-3) 0 % (0-3) Neutrophils # (Auto) 19.7 x10^3uL (1.8-7.7) 15.9 x10^3uL (1.8-7.7) Lymphocytes # (Auto) 0.6 x10^3/uL (1.0-4.8) 0.6 x10^3/uL (1.0-4.8) Monocytes # (Auto) 1.9 x10^3/uL (0.0-1.1) 2.1 x10^3/uL (0.0-1.1) Eosinophils # (Auto) 0.0 x10^3/uL (0.0-0.7) 0.0 x10^3/uL (0.0-0.7) Basophils # (Auto) 0.0 x10^3/uL (0.0-0.2) 0.0 x10^3/uL (0.0-0.2) Segmented Neutrophils % 80 % (35-66) Band Neutrophils % 2 % (0-9) Lymphocytes % 9 % (24-48) Monocytes % 9 % (0-10) Toxic Vacuolation Slight Platelet Estimate Adequate (ADEQUATE) Sodium Level 143 mmol/L (136-145) 142 mmol/L (136-145) Potassium Level 3.4 mmol/L (3.5-5.1) 3.7 mmol/L (3.5-5.1) Chloride Level 104 mmol/L (98-107) 107 mmol/L (98-107) Carbon Dioxide Level 28 mmol/L (21-32) 25 mmol/L (21-32) Anion Gap 11 (6-14) 10 (6-14) Blood Urea Nitrogen 50 mg/dL (8-26) 46 mg/dL (8-26) Creatinine 1.5 mg/dL (0.7-1.3) 1.0 mg/dL (0.7-1.3) Estimated GFR (Cockcroft-Gault) 44.5 71.0 Glucose Level 109 mg/dL (70-99) 119 mg/dL (70-99) Lactic Acid Level 3.5 mmol/L (0.4-2.0) Calcium Level 10.0 mg/dL (8.5-10.1) 9.0 mg/dL (8.5-10.1) Total Bilirubin 0.9 mg/dL (0.2-1.0) Direct Bilirubin 0.2 mg/dL (0.0-0.2) Aspartate Amino Transf (AST/SGOT) 69 U/L (15-37) Alanine Aminotransferase (ALT/SGPT) 27 U/L (16-63) Alkaline Phosphatase 64 U/L (46-116) Troponin I Quantitative 0.056 ng/mL (0.000-0.055) Total Protein 7.5 g/dL (6.4-8.2) Albumin 3.8 g/dL (3.4-5.0) Lipase 274 U/L (73-393) Urine Collection Type Unknown Urine Color Yellow Urine Clarity Clear Urine pH 5.5 Urine Specific [place] >=1.030 Urine Protein 30 mg/dL (NEG-TRACE) Urine Glucose (UA) Negative mg/dL (NEG) Urine Ketones (Stick) Negative mg/dL (NEG) Urine Blood Trace (NEG) Urine Nitrite Negative (NEG) Urine Bilirubin Negative (NEG) Urine Urobilinogen Dipstick 0.2 mg/dL (0.2 mg/dL) Urine Leukocyte Esterase Negative (NEG) Urine RBC Occ /HPF (0-2) Urine WBC 5-10 /HPF (0-4) Urine Squamous Epithelial Cells Few /LPF Urine Transitional Epithelial Cells Few /LPF Urine Renal Epithelial Cells Occ /LPF Urine Bacteria 0 /HPF (0-FEW) Urine Hyaline Casts Moderate /HPF Urine Mucus Mod /LPF Allergies: Coded Allergies: No Known Drug Allergies (Unverified , 05/15/16) Medications: Current Medications Medications (Trade) Dose Ordered Sig/Linda Route PRN Reason Start Time Stop Time Status Last Admin Dose Admin Sodium Chloride 1,000 ml @ 1,000 mls/hr 1X ONCE IV 11/19/16 20:45 11/19/16 21:44 DC 11/19/16 20:55 Famotidine (Pepcid) 40 mg 1X ONCE IVP 11/19/16 21:30 11/19/16 21:31 DC 11/19/16 21:54 Ondansetron HCl (Zofran) 4 mg PRN Q8HRS PRN IV NAUSEA/VOMITING 11/19/16 21:45 11/20/16 21:44 11/19/16 21:54 Sodium Chloride 1,000 ml @ 110 mls/hr Q9H6M IV 11/19/16 21:41 11/20/16 21:40 11/20/16 09:43 Imaging: Imaging: CT A/P 11/2016 Findings: Evaluation of solid organs is limited without contrast. Evaluation of stomach and bowel is limited without oral contrast. There is calcified pleural plaque at the lung bases. There is a large hiatal hernia. Liver: The large cyst in the left lobe of the liver was seen previously. Spleen: Normal. Pancreas: Normal. Adrenal Glands: Normal. Kidneys: Normal. There is no free air or free fluid. There is no lymphadenopathy. There is an infrarenal abdominal aortic aneurysm measuring as great as 3.2 cm in width unchanged from prior study. The gallbladder is not fully distended but appears within normal limits. The urinary bladder appears normal. There is no free fluid. There is no lymphadenopathy. There is no pericolonic inflammation identified. The appendix is not identified. Impression: No acute findings. Stable appearance of the abdomen and pelvis. [place] head [address] Impression: No new intracranial abnormality is seen. CTA chest/A/P 09/2016 IMPRESSION: No acute finding seen in the abdomen or pelvis. Unchanged infrarenal abdominal aortic aneurysm measuring approximately 3.3 cm in greatest dimension. Large hiatus hernia. 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 9 mm vascular mass in the right lobe of the liver. The etiology is unclear. It may represent a flash hemangioma. Large cyst occupying the left lobe of the liver appears unchanged Chronic musculoskeletal changes. UGI Series 05/2016 IMPRESSION: 1. Large hiatal hernia with intrathoracic positioning of the majority of the stomach. No gastric or esophageal mucosal lesion is seen and there is no evidence of obstruction. 2. Esophageal tertiary contractions. 3. Shallow penetration when swallowing thin barium consistency. No aspiration is seen. CT A/P 05/2016 Impression: 1. No CT evidence of pancreatitis. 2. Moderate to large hiatal hernia with complex orientation, incompletely assessed. 3. Asbestos related pleural disease. Small right pleural effusion. 4. Infrarenal abdominal aortic aneurysm, unchanged from previous study. PE: GEN: NAD HEENT: Atraumatic, PERRL LUNGS: clear HEART: S1S2 ABD: NABS, S/ND/NT EXTREMITY: No edema SKIN: No rashes, no jaundice NEURO/PSYCH: poor historian A/P: A/P: Large hiatal hernia, n/v, chest pain -previous workup per HPI includes CTs, UGI series, EGD -seems has continued on PPI -was discharged home in 05/2016 w/o plans for surgery Elevated troponin -per cardiology -- Complex hiatal hernia, ?intermittent volvulus D/w Dr. Mendoza - try NG tube placement. Will ask surgery to see. ANGELA SCHNEIDER Nov 20, 2016 10:26
[2016-11-20] MEDS ORDERED: ONDANSETRON PF 4 MG/2 ML VIAL. IV PRN (10:42)
[2016-11-20] MEDS ORDERED: LABETALOL 20 MG/4 ML DISP.SYRIN. IVP PRN (10:45)
[2016-11-20] MEDS: DUTASTERIDE 0.5 MG CAPSULE PO SCH (11:00)
--- NOTE | 2016-11-20 11:16 | PDOC2 ---
CARDIAC CONSULT DATE OF CONSULT Date of Consult DATE: 11/20/16 TIME: 11:13 REASON FOR CONSULT Reason for Consult: Positive troponin REFERRING PHYSICIAN Referring Physician: Dr. Phan SOURCE Source: Chart review, Patient HISTORY OF PRESENT ILLNESS HISTORY OF PRESENT ILLNESS This is an 86 yo male, with a history of dementia, who presented secondary to dark colored emesis. HPI obtained from a patient cannot recall events. Patient apparently has upset stomach on Saturday. retuned from cardiac rehab and noticed what appeared to emesis on the floor. Patinet could not recall nausea/vomiting. Yesterday, following lunch, noticed dark pool of fluid on the floor. Figured out the patient had vomited. Concerned that it could be blood, she came into the ED for further evaluation and treatment. Upon arrival troponin noted to be slightly elevated at 0.056, which prompted this consult. No reports of chest pain, palpitations, dizziness, diaphoresis, or SOA. reporting compliance with medications. PAST MEDICAL HISTORY Cardiovascular: HTN, Hyperlipidemia, Other (SSS s/p PPM, abdominal aortic aneurysm) CENTRAL NERVOUS SYSTEM: Dementia GI: No pertinent hx Heme/Onc: No pertinent hx Hepatobiliary: No pertinent hx Psych: No pertinent hx Musculoskeletal: Osteoarthritis Rheumatologic: No pertinent hx Infectious disease: No pertinent hx ENT: No pertinent hx Renal/: No pertinent hx Endocrine: No pertinent hx PAST SURGICAL HISTORY Past Surgical History: Pacemaker, Cataract Removal FAMILY HISTORY Family History: Other (noncontributory ) SOCIAL HISTORY Smoke: No ALCOHOL: none Drugs: None Lives: with Family CURRENT MEDICATIONS CURRENT MEDICATIONS Current Medications Medications (Trade) Dose Ordered Sig/Linda Route PRN Reason Start Time Stop Time Status Last Admin Dose Admin Sodium Chloride 1,000 ml @ 1,000 mls/hr 1X ONCE IV 11/19/16 20:45 11/19/16 21:44 DC 11/19/16 20:55 Famotidine (Pepcid) 40 mg 1X ONCE IVP 11/19/16 21:30 11/19/16 21:31 DC 11/19/16 21:54 Ondansetron HCl (Zofran) 4 mg PRN Q8HRS PRN IV NAUSEA/VOMITING 11/19/16 21:45 11/20/16 10:44 DC 11/19/16 21:54 Sodium Chloride 1,000 ml @ 110 mls/hr Q9H6M IV 11/19/16 21:41 11/20/16 21:40 11/20/16 09:43 ALLERGIES ALLERGIES: Coded Allergies: No Known Drug Allergies (Unverified , 05/15/16) ROS Review of System 14 point ROS conducted with pertinent positives noted above in HPI. PHYSICAL EXAM General: Alert, Cooperative, No acute distress, Other (HABEMATOLEL) HEENT: Atraumatic, Mucous membr. moist/pink Lungs: Clear to auscultation, Normal air movement Heart: Regular rate, Normal S1, Normal S2, No murmurs Abdomen: Soft, Other (mild tenderness ) Extremities: No edema, Normal pulses Skin: No significant lesion Neuro: Normal speech, Sensation intact Psych/Mental Status: Mood NL MUSCULOSKELETAL: Osteoarthritic changes both hands VITALS VITALS Vital Signs Date Time Temp Pulse Resp B/P (MAP) Pulse Ox O2 Delivery O2 Flow Rate FiO2 11/20/16 07:33 97.5 74 19 153/63 (93) 96 Room Air 97.5 LABS Lab: Laboratory Tests Test 11/19/16 20:17 11/19/16 20:56 11/20/16 05:25 White Blood Count 22.2 x10^3/uL (4.0-11.0) 18.7 x10^3/uL (4.0-11.0) Red Blood Count 4.15 x10^6/uL (4.30-5.70) 3.71 x10^6/uL (4.30-5.70) Hemoglobin 13.9 g/dL (13.0-17.5) 12.9 g/dL (13.0-17.5) Hematocrit 41.9 % (39.0-53.0) 36.6 % (39.0-53.0) Mean Corpuscular Volume 101 fL (79-100) 99 fL (79-100) Mean Corpuscular Hemoglobin 34 pg (25-35) 35 pg (25-35) Mean Corpuscular Hemoglobin Concent 33 g/dL (31-37) 35 g/dL (31-37) Red Cell Distribution Width 13.0 % (11.5-14.5) 13.1 % (11.5-14.5) Platelet Count 202 x10^3/uL (140-400) 177 x10^3/uL (140-400) Neutrophils (%) (Auto) 89 % (31-73) 85 % (31-73) Lymphocytes (%) (Auto) 3 % (24-48) 4 % (24-48) Monocytes (%) (Auto) 8 % (0-9) 11 % (0-9) Eosinophils (%) (Auto) 0 % (0-3) 0 % (0-3) Basophils (%) (Auto) 0 % (0-3) 0 % (0-3) Neutrophils # (Auto) 19.7 x10^3uL (1.8-7.7) 15.9 x10^3uL (1.8-7.7) Lymphocytes # (Auto) 0.6 x10^3/uL (1.0-4.8) 0.6 x10^3/uL (1.0-4.8) Monocytes # (Auto) 1.9 x10^3/uL (0.0-1.1) 2.1 x10^3/uL (0.0-1.1) Eosinophils # (Auto) 0.0 x10^3/uL (0.0-0.7) 0.0 x10^3/uL (0.0-0.7) Basophils # (Auto) 0.0 x10^3/uL (0.0-0.2) 0.0 x10^3/uL (0.0-0.2) Segmented Neutrophils % 80 % (35-66) Band Neutrophils % 2 % (0-9) Lymphocytes % 9 % (24-48) Monocytes % 9 % (0-10) Toxic Vacuolation Slight Platelet Estimate Adequate (ADEQUATE) Sodium Level 143 mmol/L (136-145) 142 mmol/L (136-145) Potassium Level 3.4 mmol/L (3.5-5.1) 3.7 mmol/L (3.5-5.1) Chloride Level 104 mmol/L (98-107) 107 mmol/L (98-107) Carbon Dioxide Level 28 mmol/L (21-32) 25 mmol/L (21-32) Anion Gap 11 (6-14) 10 (6-14) Blood Urea Nitrogen 50 mg/dL (8-26) 46 mg/dL (8-26) Creatinine 1.5 mg/dL (0.7-1.3) 1.0 mg/dL (0.7-1.3) Estimated GFR (Cockcroft-Gault) 44.5 71.0 Glucose Level 109 mg/dL (70-99) 119 mg/dL (70-99) Lactic Acid Level 3.5 mmol/L (0.4-2.0) Calcium Level 10.0 mg/dL (8.5-10.1) 9.0 mg/dL (8.5-10.1) Total Bilirubin 0.9 mg/dL (0.2-1.0) Direct Bilirubin 0.2 mg/dL (0.0-0.2) Aspartate Amino Transf (AST/SGOT) 69 U/L (15-37) Alanine Aminotransferase (ALT/SGPT) 27 U/L (16-63) Alkaline Phosphatase 64 U/L (46-116) Troponin I Quantitative 0.056 ng/mL (0.000-0.055) Total Protein 7.5 g/dL (6.4-8.2) Albumin 3.8 g/dL (3.4-5.0) Lipase 274 U/L (73-393) Urine Collection Type Unknown Urine Color Yellow Urine Clarity Clear Urine pH 5.5 Urine Specific [place] >=1.030 Urine Protein 30 mg/dL (NEG-TRACE) Urine Glucose (UA) Negative mg/dL (NEG) Urine Ketones (Stick) Negative mg/dL (NEG) Urine Blood Trace (NEG) Urine Nitrite Negative (NEG) Urine Bilirubin Negative (NEG) Urine Urobilinogen Dipstick 0.2 mg/dL (0.2 mg/dL) Urine Leukocyte Esterase Negative (NEG) Urine RBC Occ /HPF (0-2) Urine WBC 5-10 /HPF (0-4) Urine Squamous Epithelial Cells Few /LPF Urine Transitional Epithelial Cells Few /LPF Urine Renal Epithelial Cells Occ /LPF Urine Bacteria 0 /HPF (0-FEW) Urine Hyaline Casts Moderate /HPF Urine Mucus Mod /LPF ECHOCARDIOGRAM ECHOCARDIOGRAM <Conclusion> The left ventricle is normal size. Left ventricle systolic function is normal. The Ejection Fraction is 60-65%. There is no significant aortic valvular stenosis. Doppler and Color Flow revealed no significant aortic regurgitation. Doppler and Color Flow revealed trace mitral regurgitation. Doppler and Color Flow revealed mild tricuspid regurgitation. The PA pressure was estimated at 33 mmHg. DATE: 10/27/15 1641 ASSESSMENT/PLAN ASSESSMENT/PLAN 1. Mildly elevated troponin; initial 0.056. CP free. EKG without acute ischemic changes. Echo with preserved LV function last year as noted above. Continue medical therapy 2. Hiatal hernia; GI following- surgery consulted 3. Hypertension; mildly elevated. NPO 4. Hyperlipidemia; LDL 50, statin therapy when able to take PO 5. SSS s/p PPM; recent interrogation with normal device function 5. Abdominal aortic aneurysm; stable. measures at 3.2cm in width, which is unchanged from prior study Recommendations Trend troponin levels. Check echo to assess LV function/presence of WMA Add hydralazine IV PRN while patient is NPO Supportive care. Problems: REJI GARNETT APRN Nov 20, 2016 11:16
[2016-11-20 11:35] VITALS: BP 133/93
--- NOTE | 2016-11-20 12:26 | PDOC1 ---
History and Physical Date of Admission Date of Admission DATE: 11/20/16 TIME: 12:18 Identification/Chief Complaint Chief Complaint vomited black blood Problems: Source Source: Caregiver, Chart review History of Present Illness History of Present Illness 86 y.o male, at bedside, last admitted here May 14- and i dcd with my ff dx: 1. Idiopathic pancreaitis, resolved 2. Melena, gastritis, espohagitis by EGD (05/15) 3. Syncope, likely vagal 4. Hypercalcemia sec to dehydration resolved 5. ARF, hypovolemia, vaso motor likely sec to poor po 6. 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 CHronic constipation 8. Emesis with mild hypokalemia 9. HUGE HIATAL HERNIA yesterday, black emesis, rest of hx scarce, pt asleep - poor historian, at bedside but also poor historian, OTher chart reveiwed, on ASA 81 at home, no cardiac stents but has indwelling pacer for low HR.HGb 12. hemodynamically stable but per acct sounds like planned for EGD by GI later, CARds thompson sbeen consulted too for trivial elevated trop. NO CP, reassuring EKG [facility] note reviewed, cscope 2009, adenomatous polyp. EGD earlier this yr , esophagitis, large hiatal hernia, with paraesophageal content and some ulceration. NOne smoker, non drinekr - at least VERY occasional in the distant past LActate 3.5 Trop 0.056 Past Medical History Cardiovascular: HTN, Hyperlipidemia, Other (SSS s/p PPM, abdominal aortic aneurysm) Hepatobiliary: Other Past Surgical History Past Surgical History: Pacemaker, Cataract Removal Family History Family History: No Significant Social History Smoke: No (previously occasional cigar) ALCOHOL: occassional (wine w/ dinner sometimes) Drugs: None Current Problem List Problem List Problems Medical Problems: (1) Upper GI bleeding Status: Acute Problems: Current Medications Current Medications Current Medications Sodium Chloride 1,000 ml @ 1,000 mls/hr 1X ONCE IV Last administered on 20:55; Start 11/19/16 at 20:45; Stop 11/19/16 at 21:44; Status DC Famotidine (Pepcid) 40 mg 1X ONCE IVP Last administered on 11/19/16 21:54; Start 11/19/16 at 21:30; Stop 11/19/16 at 21:31; Status DC Ondansetron HCl (Zofran) 4 mg PRN Q8HRS PRN IV NAUSEA/VOMITING Last administered on 11/19/16 21:54; Start 11/19/16 at 21:45; Stop 11/20/16 at 10:44 ; Status DC Morphine Sulfate 2 mg PRN Q2HR PRN IV PAIN; Start 11/19/16 at 21:45; Stop 11/20 at 21:44 Sodium Chloride 1,000 ml @ 110 mls/hr Q9H6M IV Last administered on 11/20/16 09:43; Start 11/19/16 at 21:41; Stop 11/20/16 at 21:40 Ondansetron HCl (Zofran) 4 mg PRN Q6HRS PRN IV NAUSEA/VOMITING; Start 11/20/16 at 10:42; Stop 11/21/16 at 10:41 Famotidine (Pepcid) 20 mg BID IVP ; Start 11/20/16 at 11:00 Atorvastatin Calcium (Lipitor) 10 mg QHS PO ; Start 11/20/16 at 21:00 Dutasteride (Avodart) 0.5 mg DAILY PO ; Start 11/20/16 at 11:00 Labetalol HCl (Normodyne) 10 mg PRN Q2HR PRN IVP HYPERTENSION, SEE COMMENTS; Start 11/20/16 at 10:45 Acetaminophen (Tylenol) 500 mg PRN Q6HRS PRN PO MILD PAIN / TEMP; Start at 10:45 Active Scripts Active Reported Aspir 81 (Aspirin) 81 Mg Tablet.dr 81 Mg PO DAILY Atorvastatin Calcium 10 Mg Tablet 1 Tab PO DAILY Aspirin 81 Mg Tab.chew 1 Tab PO DAILY Avodart (Dutasteride) 0.5 Mg Capsule 1 Cap PO DAILY Allergies Allergies: Coded Allergies: No Known Drug Allergies (Unverified , 05/15/16) ROS Review of System as per HPI Physical Exam General: Alert, Oriented X3, Cooperative, No acute distress HEENT: Atraumatic, PERRLA, EOMI Lungs: Clear to auscultation, Normal air movement Heart: S1S2, RRR, no thrills, no rubs, no gallops, no murmurs Cardiovascular: S1, S2 Abdomen: Normal bowel sounds, Soft, No tenderness, No hepatosplenomegaly, No masses Male Genitals Exam: normal genitalia, normal prostate Rectal Exam: not examined PELVIC: Nml ext genitalia Extremities: No clubbing, No cyanosis, No edema, Normal pulses, No tenderness/ swelling Skin: No rashes, No breakdown, No significant lesion Neuro: Normal gait, Normal speech, Strength at 5/5 X4 ext, Normal tone, Sensation intact, Cranial nerves 3-12 NL, Reflexes 2+ Psych/Mental Status: Mental status NL, Mood NL Vitals Vitals Vital Signs Date Time Temp Pulse Resp B/P (MAP) Pulse Ox O2 Delivery O2 Flow Rate FiO2 11/20/16 11:35 97.8 62 20 133/93 (106) 98 Room Air 97.8 Labs Labs Laboratory Tests Test 11/19/16 20:17 11/19/16 20:56 11/20/16 05:25 White Blood Count 22.2 x10^3/uL (4.0-11.0) 18.7 x10^3/uL (4.0-11.0) Red Blood Count 4.15 x10^6/uL (4.30-5.70) 3.71 x10^6/uL (4.30-5.70) Hemoglobin 13.9 g/dL (13.0-17.5) 12.9 g/dL (13.0-17.5) Hematocrit 41.9 % (39.0-53.0) 36.6 % (39.0-53.0) Mean Corpuscular Volume 101 fL (79-100) 99 fL (79-100) Mean Corpuscular Hemoglobin 34 pg (25-35) 35 pg (25-35) Mean Corpuscular Hemoglobin Concent 33 g/dL (31-37) 35 g/dL (31-37) Red Cell Distribution Width 13.0 % (11.5-14.5) 13.1 % (11.5-14.5) Platelet Count 202 x10^3/uL (140-400) 177 x10^3/uL (140-400) Neutrophils (%) (Auto) 89 % (31-73) 85 % (31-73) Lymphocytes (%) (Auto) 3 % (24-48) 4 % (24-48) Monocytes (%) (Auto) 8 % (0-9) 11 % (0-9) Eosinophils (%) (Auto) 0 % (0-3) 0 % (0-3) Basophils (%) (Auto) 0 % (0-3) 0 % (0-3) Neutrophils # (Auto) 19.7 x10^3uL (1.8-7.7) 15.9 x10^3uL (1.8-7.7) Lymphocytes # (Auto) 0.6 x10^3/uL (1.0-4.8) 0.6 x10^3/uL (1.0-4.8) Monocytes # (Auto) 1.9 x10^3/uL (0.0-1.1) 2.1 x10^3/uL (0.0-1.1) Eosinophils # (Auto) 0.0 x10^3/uL (0.0-0.7) 0.0 x10^3/uL (0.0-0.7) Basophils # (Auto) 0.0 x10^3/uL (0.0-0.2) 0.0 x10^3/uL (0.0-0.2) Segmented Neutrophils % 80 % (35-66) Band Neutrophils % 2 % (0-9) Lymphocytes % 9 % (24-48) Monocytes % 9 % (0-10) Toxic Vacuolation Slight Platelet Estimate Adequate (ADEQUATE) Sodium Level 143 mmol/L (136-145) 142 mmol/L (136-145) Potassium Level 3.4 mmol/L (3.5-5.1) 3.7 mmol/L (3.5-5.1) Chloride Level 104 mmol/L (98-107) 107 mmol/L (98-107) Carbon Dioxide Level 28 mmol/L (21-32) 25 mmol/L (21-32) Anion Gap 11 (6-14) 10 (6-14) Blood Urea Nitrogen 50 mg/dL (8-26) 46 mg/dL (8-26) Creatinine 1.5 mg/dL (0.7-1.3) 1.0 mg/dL (0.7-1.3) Estimated GFR (Cockcroft-Gault) 44.5 71.0 Glucose Level 109 mg/dL (70-99) 119 mg/dL (70-99) Lactic Acid Level 3.5 mmol/L (0.4-2.0) Calcium Level 10.0 mg/dL (8.5-10.1) 9.0 mg/dL (8.5-10.1) Total Bilirubin 0.9 mg/dL (0.2-1.0) Direct Bilirubin 0.2 mg/dL (0.0-0.2) Aspartate Amino Transf (AST/SGOT) 69 U/L (15-37) Alanine Aminotransferase (ALT/SGPT) 27 U/L (16-63) Alkaline Phosphatase 64 U/L (46-116) Troponin I Quantitative 0.056 ng/mL (0.000-0.055) Total Protein 7.5 g/dL (6.4-8.2) Albumin 3.8 g/dL (3.4-5.0) Lipase 274 U/L (73-393) Urine Collection Type Unknown Urine Color Yellow Urine Clarity Clear Urine pH 5.5 Urine Specific [place] >=1.030 Urine Protein 30 mg/dL (NEG-TRACE) Urine Glucose (UA) Negative mg/dL (NEG) Urine Ketones (Stick) Negative mg/dL (NEG) Urine Blood Trace (NEG) Urine Nitrite Negative (NEG) Urine Bilirubin Negative (NEG) Urine Urobilinogen Dipstick 0.2 mg/dL (0.2 mg/dL) Urine Leukocyte Esterase Negative (NEG) Urine RBC Occ /HPF (0-2) Urine WBC 5-10 /HPF (0-4) Urine Squamous Epithelial Cells Few /LPF Urine Transitional Epithelial Cells Few /LPF Urine Renal Epithelial Cells Occ /LPF Urine Bacteria 0 /HPF (0-FEW) Urine Hyaline Casts Moderate /HPF Urine Mucus Mod /LPF Laboratory Tests Test 11/19/16 20:17 11/19/16 20:56 11/20/16 05:25 White Blood Count 22.2 x10^3/uL (4.0-11.0) 18.7 x10^3/uL (4.0-11.0) Red Blood Count 4.15 x10^6/uL (4.30-5.70) 3.71 x10^6/uL (4.30-5.70) Hemoglobin 13.9 g/dL (13.0-17.5) 12.9 g/dL (13.0-17.5) Hematocrit 41.9 % (39.0-53.0) 36.6 % (39.0-53.0) Mean Corpuscular Volume 101 fL (79-100) 99 fL (79-100) Mean Corpuscular Hemoglobin 34 pg (25-35) 35 pg (25-35) Mean Corpuscular Hemoglobin Concent 33 g/dL (31-37) 35 g/dL (31-37) Red Cell Distribution Width 13.0 % (11.5-14.5) 13.1 % (11.5-14.5) Platelet Count 202 x10^3/uL (140-400) 177 x10^3/uL (140-400) Neutrophils (%) (Auto) 89 % (31-73) 85 % (31-73) Lymphocytes (%) (Auto) 3 % (24-48) 4 % (24-48) Monocytes (%) (Auto) 8 % (0-9) 11 % (0-9) Eosinophils (%) (Auto) 0 % (0-3) 0 % (0-3) Basophils (%) (Auto) 0 % (0-3) 0 % (0-3) Neutrophils # (Auto) 19.7 x10^3uL (1.8-7.7) 15.9 x10^3uL (1.8-7.7) Lymphocytes # (Auto) 0.6 x10^3/uL (1.0-4.8) 0.6 x10^3/uL (1.0-4.8) Monocytes # (Auto) 1.9 x10^3/uL (0.0-1.1) 2.1 x10^3/uL (0.0-1.1) Eosinophils # (Auto) 0.0 x10^3/uL (0.0-0.7) 0.0 x10^3/uL (0.0-0.7) Basophils # (Auto) 0.0 x10^3/uL (0.0-0.2) 0.0 x10^3/uL (0.0-0.2) Segmented Neutrophils % 80 % (35-66) Band Neutrophils % 2 % (0-9) Lymphocytes % 9 % (24-48) Monocytes % 9 % (0-10) Toxic Vacuolation Slight Platelet Estimate Adequate (ADEQUATE) Sodium Level 143 mmol/L (136-145) 142 mmol/L (136-145) Potassium Level 3.4 mmol/L (3.5-5.1) 3.7 mmol/L (3.5-5.1) Chloride Level 104 mmol/L (98-107) 107 mmol/L (98-107) Carbon Dioxide Level 28 mmol/L (21-32) 25 mmol/L (21-32) Anion Gap 11 (6-14) 10 (6-14) Blood Urea Nitrogen 50 mg/dL (8-26) 46 mg/dL (8-26) Creatinine 1.5 mg/dL (0.7-1.3) 1.0 mg/dL (0.7-1.3) Estimated GFR (Cockcroft-Gault) 44.5 71.0 Glucose Level 109 mg/dL (70-99) 119 mg/dL (70-99) Lactic Acid Level 3.5 mmol/L (0.4-2.0) Calcium Level 10.0 mg/dL (8.5-10.1) 9.0 mg/dL (8.5-10.1) Total Bilirubin 0.9 mg/dL (0.2-1.0) Direct Bilirubin 0.2 mg/dL (0.0-0.2) Aspartate Amino Transf (AST/SGOT) 69 U/L (15-37) Alanine Aminotransferase (ALT/SGPT) 27 U/L (16-63) Alkaline Phosphatase 64 U/L (46-116) Troponin I Quantitative 0.056 ng/mL (0.000-0.055) Total Protein 7.5 g/dL (6.4-8.2) Albumin 3.8 g/dL (3.4-5.0) Lipase 274 U/L (73-393) Urine Collection Type Unknown Urine Color Yellow Urine Clarity Clear Urine pH 5.5 Urine Specific [place] >=1.030 Urine Protein 30 mg/dL (NEG-TRACE) Urine Glucose (UA) Negative mg/dL (NEG) Urine Ketones (Stick) Negative mg/dL (NEG) Urine Blood Trace (NEG) Urine Nitrite Negative (NEG) Urine Bilirubin Negative (NEG) Urine Urobilinogen Dipstick 0.2 mg/dL (0.2 mg/dL) Urine Leukocyte Esterase Negative (NEG) Urine RBC Occ /HPF (0-2) Urine WBC 5-10 /HPF (0-4) Urine Squamous Epithelial Cells Few /LPF Urine Transitional Epithelial Cells Few /LPF Urine Renal Epithelial Cells Occ /LPF Urine Bacteria 0 /HPF (0-FEW) Urine Hyaline Casts Moderate /HPF Urine Mucus Mod /LPF VTE Prophylaxis Ordered VTE Prophylaxis Devices: Yes VTE Pharmacological Prophylaxi: Yes Assessment/Plan Assessment/Plan 1. Black emesis, likely another UGIB 2. Hx gastritis , esophagitis, large hiatal hernia with para esoophageal content and ulceration by last EGD (Early 2016) 3. ANemia of blood loss, stable 4. Adenomatous polyp, 2008 5. INdwelling pacer was on ASA 81 at home 6. Sepsis, POA< elevated lactate, WBC, no fevrs though PLAN: NPO, EGD later HOld ASA SCDs PT/OT Recheck lactate mindy MOnitor leukocytosis and anemia Dw HENRIK YORK MD Nov 20, 2016 12:26
[2016-11-20] MEDS: FAMOTIDINE 20 MG/2 ML VIAL IVP SCH (12:47)
[2016-11-20] MEDS ORDERED: hydrALAZINE 20 MG/ML VIAL. IVP PRN (15:30)
[2016-11-20 15:58] VITALS: BP 136/71
--- NOTE | 2016-11-20 16:27 | PDOC2 ---
CONSULT Date of Consult Date of Consult DATE: 11/20/16 TIME: 16:23 History of Present Illness Reason for Visit: The patient is an 86 year old male with a known history of a large hiatal hernia. He has some dementia and is a poor historian. He is is present and can assist with history. He was brought to the ER with upper abdominal pain , vomiting. Prior to this recent bout he had been taking a diet without difficulty. Past Medical History Cardiovascular: HTN, Hyperlipidemia, Other (SSS s/p PPM, abdominal aortic aneurysm) CENTRAL NERVOUS SYSTEM: Dementia GI: No pertinent hx Heme/Onc: No pertinent hx Hepatobiliary: No pertinent hx Psych: No pertinent hx Musculoskeletal: Osteoarthritis Rheumatologic: No pertinent hx Infectious disease: No pertinent hx ENT: No pertinent hx Renal/: No pertinent hx Endocrine: No pertinent hx Past Surgical History Past Surgical History: Pacemaker, Cataract Removal Family History Family History: Other (noncontributory ) Social History No ALCOHOL: none Drugs: None Lives: with Family Current Problem List Problem List Problems Medical Problems: (1) Upper GI bleeding Status: Acute Current Medications Current Medications Current Medications Sodium Chloride 1,000 ml @ 1,000 mls/hr 1X ONCE IV Last administered on 20:55; Start 11/19/16 at 20:45; Stop 11/19/16 at 21:44; Status DC Famotidine (Pepcid) 40 mg 1X ONCE IVP Last administered on 11/19/16 21:54; Start 11/19/16 at 21:30; Stop 11/19/16 at 21:31; Status DC Ondansetron HCl (Zofran) 4 mg PRN Q8HRS PRN IV NAUSEA/VOMITING Last administered on 11/19/16 21:54; Start 11/19/16 at 21:45; Stop 11/20/16 at 10:44 ; Status DC Morphine Sulfate 2 mg PRN Q2HR PRN IV PAIN; Start 11/19/16 at 21:45; Stop 11/20 at 21:44 Sodium Chloride 1,000 ml @ 110 mls/hr Q9H6M IV Last administered on 11/20/16 09:43; Start 11/19/16 at 21:41; Stop 11/20/16 at 21:40 Ondansetron HCl (Zofran) 4 mg PRN Q6HRS PRN IV NAUSEA/VOMITING; Start 11/20/16 at 10:42; Stop 11/21/16 at 10:41 Famotidine (Pepcid) 20 mg BID IVP Last administered on 11/20/16t 12:47; Start 11/20/16 at 11:00 Atorvastatin Calcium (Lipitor) 10 mg QHS PO ; Start 11/20/16 at 21:00 Dutasteride (Avodart) 0.5 mg DAILY PO ; Start 11/20/16 at 11:00 Labetalol HCl (Normodyne) 10 mg PRN Q2HR PRN IVP HYPERTENSION, SEE COMMENTS; Start 11/20/16 at 10:45 Acetaminophen (Tylenol) 500 mg PRN Q6HRS PRN PO MILD PAIN / TEMP; Start at 10:45 Ondansetron HCl (Zofran) 4 mg PRN Q6HRS PRN IV NAUSEA/VOMITING; Start 11/21/16 at 07:00; Stop 11/22/16 at 06:59 Fentanyl Citrate (Fentanyl 2ml Vial) 25 mcg PRN Q5MIN PRN IV MILD PAIN; Start 11/21/16 at 07:00; Stop 11/22/16 at 06:59 Fentanyl Citrate (Fentanyl 2ml Vial) 50 mcg PRN Q5MIN PRN IV MODERATE PAIN; Start 11/21/16 at 07:00; Stop 11/22/16 at 06:59 Morphine Sulfate 1 mg PRN Q10MIN PRN IV SEVERE PAIN; Start 11/21/16 at 07:00; Stop 11/22/16 at 06:59 Ringer's Solution 1,000 ml @ 30 mls/hr Q24H IV ; Start 11/21/16 at 07:00; Stop 11/21/16 at 18:59 Lidocaine HCl 2 ml PRN 1X PRN ID PRIOR TO IV START; Start 11/21/16 at 07:00; Stop 11/22/16 at 06:59 Hydromorphone HCl (Dilaudid) 0.5 mg PRN Q10MIN PRN IV SEV PAIN, Second choice; Start 11/21/16 at 07:00; Stop 11/22/16 at 06:59 Prochlorperazine Edisylate (Compazine) 5 mg PACU PRN PRN IV NAUSEA, MRX1; Start 11/21/16 at 07:00; Stop 11/22/16 at 06:59 Hydralazine HCl (Apresoline) 10 mg PRN Q4HRS PRN IVP ELEVATED BP, SEE COMMENTS ; Start 11/20/16 at 15:30 Active Scripts Active Reported Aspir 81 (Aspirin) 81 Mg Tablet.dr 81 Mg PO DAILY Atorvastatin Calcium 10 Mg Tablet 1 Tab PO DAILY Aspirin 81 Mg Tab.chew 1 Tab PO DAILY Avodart (Dutasteride) 0.5 Mg Capsule 1 Cap PO DAILY Allergies Allergies: Coded Allergies: No Known Drug Allergies (Unverified , 05/15/16) ROS Review of System difficult to obtain ROS due to patients dementia Physical Exam General: Alert, Cooperative, No acute distress Lungs: Clear to auscultation Heart: Regular rate Abdomen: Soft (mildly tender upper mid abdomen, no guarding or peritoneal signs ) Extremities: No clubbing, No cyanosis Skin: No rashes, No breakdown Neuro: Normal speech MUSCULOSKELETAL: No joint tenderness, No deformity Vitals VITALS Vital Signs Date Time Temp Pulse Resp B/P (MAP) Pulse Ox O2 Delivery O2 Flow Rate FiO2 11/20/16 11:35 97.8 62 20 133/93 (106) 98 Room Air 97.8 Labs Labs Laboratory Tests Test 11/19/16 20:17 11/19/16 20:56 11/20/16 05:25 11/20/16 11:50 White Blood Count 22.2 x10^3/uL (4.0-11.0) 18.7 x10^3/uL (4.0-11.0) Red Blood Count 4.15 x10^6/uL (4.30-5.70) 3.71 x10^6/uL (4.30-5.70) Hemoglobin 13.9 g/dL (13.0-17.5) 12.9 g/dL (13.0-17.5) Hematocrit 41.9 % (39.0-53.0) 36.6 % (39.0-53.0) Mean Corpuscular Volume 101 fL (79-100) 99 fL (79-100) Mean Corpuscular Hemoglobin 34 pg (25-35) 35 pg (25-35) Mean Corpuscular Hemoglobin Concent 33 g/dL (31-37) 35 g/dL (31-37) Red Cell Distribution Width 13.0 % (11.5-14.5) 13.1 % (11.5-14.5) Platelet Count 202 x10^3/uL (140-400) 177 x10^3/uL (140-400) Neutrophils (%) (Auto) 89 % (31-73) 85 % (31-73) Lymphocytes (%) (Auto) 3 % (24-48) 4 % (24-48) Monocytes (%) (Auto) 8 % (0-9) 11 % (0-9) Eosinophils (%) (Auto) 0 % (0-3) 0 % (0-3) Basophils (%) (Auto) 0 % (0-3) 0 % (0-3) Neutrophils # (Auto) 19.7 x10^3uL (1.8-7.7) 15.9 x10^3uL (1.8-7.7) Lymphocytes # (Auto) 0.6 x10^3/uL (1.0-4.8) 0.6 x10^3/uL (1.0-4.8) Monocytes # (Auto) 1.9 x10^3/uL (0.0-1.1) 2.1 x10^3/uL (0.0-1.1) Eosinophils # (Auto) 0.0 x10^3/uL (0.0-0.7) 0.0 x10^3/uL (0.0-0.7) Basophils # (Auto) 0.0 x10^3/uL (0.0-0.2) 0.0 x10^3/uL (0.0-0.2) Segmented Neutrophils % 80 % (35-66) Band Neutrophils % 2 % (0-9) Lymphocytes % 9 % (24-48) Monocytes % 9 % (0-10) Toxic Vacuolation Slight Platelet Estimate Adequate (ADEQUATE) Sodium Level 143 mmol/L (136-145) 142 mmol/L (136-145) Potassium Level 3.4 mmol/L (3.5-5.1) 3.7 mmol/L (3.5-5.1) Chloride Level 104 mmol/L (98-107) 107 mmol/L (98-107) Carbon Dioxide Level 28 mmol/L (21-32) 25 mmol/L (21-32) Anion Gap 11 (6-14) 10 (6-14) Blood Urea Nitrogen 50 mg/dL (8-26) 46 mg/dL (8-26) Creatinine 1.5 mg/dL (0.7-1.3) 1.0 mg/dL (0.7-1.3) Estimated GFR (Cockcroft-Gault) 44.5 71.0 Glucose Level 109 mg/dL (70-99) 119 mg/dL (70-99) Lactic Acid Level 3.5 mmol/L (0.4-2.0) Calcium Level 10.0 mg/dL (8.5-10.1) 9.0 mg/dL (8.5-10.1) Total Bilirubin 0.9 mg/dL (0.2-1.0) Direct Bilirubin 0.2 mg/dL (0.0-0.2) Aspartate Amino Transf (AST/SGOT) 69 U/L (15-37) Alanine Aminotransferase (ALT/SGPT) 27 U/L (16-63) Alkaline Phosphatase 64 U/L (46-116) Troponin I Quantitative 0.056 ng/mL (0.000-0.055) 0.030 ng/mL (0.000-0.055) Total Protein 7.5 g/dL (6.4-8.2) Albumin 3.8 g/dL (3.4-5.0) Lipase 274 U/L (73-393) Urine Collection Type Unknown Urine Color Yellow Urine Clarity Clear Urine pH 5.5 Urine Specific [place] >=1.030 Urine Protein 30 mg/dL (NEG-TRACE) Urine Glucose (UA) Negative mg/dL (NEG) Urine Ketones (Stick) Negative mg/dL (NEG) Urine Blood Trace (NEG) Urine Nitrite Negative (NEG) Urine Bilirubin Negative (NEG) Urine Urobilinogen Dipstick 0.2 mg/dL (0.2 mg/dL) Urine Leukocyte Esterase Negative (NEG) Urine RBC Occ /HPF (0-2) Urine WBC 5-10 /HPF (0-4) Urine Squamous Epithelial Cells Few /LPF Urine Transitional Epithelial Cells Few /LPF Urine Renal Epithelial Cells Occ /LPF Urine Bacteria 0 /HPF (0-FEW) Urine Hyaline Casts Moderate /HPF Urine Mucus Mod /LPF Laboratory Tests Test 11/19/16 20:17 11/19/16 20:56 11/20/16 05:25 11/20/16 11:50 White Blood Count 22.2 x10^3/uL (4.0-11.0) 18.7 x10^3/uL (4.0-11.0) Red Blood Count 4.15 x10^6/uL (4.30-5.70) 3.71 x10^6/uL (4.30-5.70) Hemoglobin 13.9 g/dL (13.0-17.5) 12.9 g/dL (13.0-17.5) Hematocrit 41.9 % (39.0-53.0) 36.6 % (39.0-53.0) Mean Corpuscular Volume 101 fL (79-100) 99 fL (79-100) Mean Corpuscular Hemoglobin 34 pg (25-35) 35 pg (25-35) Mean Corpuscular Hemoglobin Concent 33 g/dL (31-37) 35 g/dL (31-37) Red Cell Distribution Width 13.0 % (11.5-14.5) 13.1 % (11.5-14.5) Platelet Count 202 x10^3/uL (140-400) 177 x10^3/uL (140-400) Neutrophils (%) (Auto) 89 % (31-73) 85 % (31-73) Lymphocytes (%) (Auto) 3 % (24-48) 4 % (24-48) Monocytes (%) (Auto) 8 % (0-9) 11 % (0-9) Eosinophils (%) (Auto) 0 % (0-3) 0 % (0-3) Basophils (%) (Auto) 0 % (0-3) 0 % (0-3) Neutrophils # (Auto) 19.7 x10^3uL (1.8-7.7) 15.9 x10^3uL (1.8-7.7) Lymphocytes # (Auto) 0.6 x10^3/uL (1.0-4.8) 0.6 x10^3/uL (1.0-4.8) Monocytes # (Auto) 1.9 x10^3/uL (0.0-1.1) 2.1 x10^3/uL (0.0-1.1) Eosinophils # (Auto) 0.0 x10^3/uL (0.0-0.7) 0.0 x10^3/uL (0.0-0.7) Basophils # (Auto) 0.0 x10^3/uL (0.0-0.2) 0.0 x10^3/uL (0.0-0.2) Segmented Neutrophils % 80 % (35-66) Band Neutrophils % 2 % (0-9) Lymphocytes % 9 % (24-48) Monocytes % 9 % (0-10) Toxic Vacuolation Slight Platelet Estimate Adequate (ADEQUATE) Sodium Level 143 mmol/L (136-145) 142 mmol/L (136-145) Potassium Level 3.4 mmol/L (3.5-5.1) 3.7 mmol/L (3.5-5.1) Chloride Level 104 mmol/L (98-107) 107 mmol/L (98-107) Carbon Dioxide Level 28 mmol/L (21-32) 25 mmol/L (21-32) Anion Gap 11 (6-14) 10 (6-14) Blood Urea Nitrogen 50 mg/dL (8-26) 46 mg/dL (8-26) Creatinine 1.5 mg/dL (0.7-1.3) 1.0 mg/dL (0.7-1.3) Estimated GFR (Cockcroft-Gault) 44.5 71.0 Glucose Level 109 mg/dL (70-99) 119 mg/dL (70-99) Lactic Acid Level 3.5 mmol/L (0.4-2.0) Calcium Level 10.0 mg/dL (8.5-10.1) 9.0 mg/dL (8.5-10.1) Total Bilirubin 0.9 mg/dL (0.2-1.0) Direct Bilirubin 0.2 mg/dL (0.0-0.2) Aspartate Amino Transf (AST/SGOT) 69 U/L (15-37) Alanine Aminotransferase (ALT/SGPT) 27 U/L (16-63) Alkaline Phosphatase 64 U/L (46-116) Troponin I Quantitative 0.056 ng/mL (0.000-0.055) 0.030 ng/mL (0.000-0.055) Total Protein 7.5 g/dL (6.4-8.2) Albumin 3.8 g/dL (3.4-5.0) Lipase 274 U/L (73-393) Urine Collection Type Unknown Urine Color Yellow Urine Clarity Clear Urine pH 5.5 Urine Specific [place] >=1.030 Urine Protein 30 mg/dL (NEG-TRACE) Urine Glucose (UA) Negative mg/dL (NEG) Urine Ketones (Stick) Negative mg/dL (NEG) Urine Blood Trace (NEG) Urine Nitrite Negative (NEG) Urine Bilirubin Negative (NEG) Urine Urobilinogen Dipstick 0.2 mg/dL (0.2 mg/dL) Urine Leukocyte Esterase Negative (NEG) Urine RBC Occ /HPF (0-2) Urine WBC 5-10 /HPF (0-4) Urine Squamous Epithelial Cells Few /LPF Urine Transitional Epithelial Cells Few /LPF Urine Renal Epithelial Cells Occ /LPF Urine Bacteria 0 /HPF (0-FEW) Urine Hyaline Casts Moderate /HPF Urine Mucus Mod /LPF Assessment/Plan Assessment/Plan Upper abdominal pain, vomiting, prior history of gastric ulcer, known large hiatal hernia; I discussed with the patient and his surgical repair of the hiatal hernia. The details were explained including the use of mesh and an antireflux procedure. There are risks of surgery which were also explained ( bleeding, infection, visceral injury, pain, dysphagia, gas bloat, recurrent hernia, gastric/esophageal perforation, anesthesia risk, potential need for additional surgery or procedure). They understand and would like to proceed. SYDNEE MCCRACKEN MD Nov 20, 2016 16:27
--- NOTE | 2016-11-20 17:08 | CARD ---
APPROVED REPORT EXAM: Two-dimensional and M-mode echocardiogram with Doppler and color Doppler. Other Information Quality : Fair Rhythm : NSR INDICATION elevated troponin 2D DIMENSIONS Left Atrium(2D)2.5 (1.6-4.0cm)IVSd1.1 (0.7-1.1cm) Aortic Root(2D)3.1 (2.0-3.7cm)LVDd3.9 (3.9-5.9cm) LVOT Diameter2.0 (1.8-2.4cm)PWd1.1 (0.7-1.1cm) LVDs2.7 (2.5-4.0cm)FS (%) 31.9 % SV40.0 mlLVEF(%)60.6 (>50%) Aortic Valve AoV Peak Surinder.140.6cm/sAoV VTI22.3cm AO Peak GR.7.9mmHgLVOT Peak Surinder.127.8cm/s LVOT VTI 20.64cmAO Mean GR.4mmHg [place] (VMAX)2.10ds1NVV (VTI)2.77cm2 Mitral Valve MV E Vxwxbtsk69.3cm/sMV DECEL TBTP403ze MV A Ltjjfwoh01.5cm/sMV LDY30xd E/A Ratio0.8MV A Bvzjiaik086gj MVA (PHT)2.73cm2 TDI E/Lateral E'8.4E/Medial E'5.4 Pulmonary Valve PV Peak Qjqgfbcn594.1cm/sPV Peak Grad.6mmHg RVOT VTI16.9cm Tricuspid Valve TR P. Znedeklt669rj/sRAP NDCJDCNN7vlBk TR Peak Gr.99ezYxZRTO44vwCf Pulmonary Vein S1 Ihfjrqan65.3cm/sD2 Knnojjtz30.8cm/s LEFT VENTRICLE The left ventricle is normal size. There is normal left ventricular wall thickness. Left ventricle sy stolic function is normal. The Ejection Fraction is 60-65%. There is normal LV segmental wall motion. Tissue Doppler imaging reveals mild left ventricular diastolic dysfunction. Transmitral Doppler flow pattern is Grade I-abnormal relaxation pattern. There is no ventricular septal defect visualized. RIGHT VENTRICLE The right ventricle is normal size. The right ventricular systolic function is normal. ATRIA The left atrium size is normal. The right atrium size is normal. The interatrial septum is intact wit h no evidence for an atrial septal defect or patent foramen ovale as noted on 2-D or Doppler imaging. AORTIC VALVE The aortic valve is calcified but opens well. The aortic valve is trileaflet. Doppler and Color Flow revealed no significant aortic regurgitation. There is no significant aortic valvular stenosis. MITRAL VALVE Mitral annular calcification is mild. There is no mitral valve stenosis. Doppler and Color Flow revea led mild mitral regurgitation. TRICUSPID VALVE The tricuspid valve is normal in structure and function. Doppler and Color Flow revealed mild tricusp id regurgitation. The PA pressure was estimated at 29 mmHg. There is no tricuspid valve stenosis. PULMONIC VALVE The pulmonic valve is not well visualized. Doppler and Color Flow revealed mild pulmonic valvular reg urgitation. There is no pulmonic valvular stenosis. GREAT VESSELS The aortic root is normal in size. Normal pulmonary venous flow (Doppler). The IVC was not visualized . PERICARDIAL EFFUSION There is no evidence of significant pericardial effusion. Critical Notification Critical Value: No <Conclusion> Left ventricle systolic function is normal. The Ejection Fraction is 60-65%. There is normal LV segmental wall motion. Transmitral Doppler flow pattern is Grade I-abnormal relaxation pattern. Mild mitral regurgitation. Mild tricuspid regurgitation. The PA pressure was estimated at 29 mmHg. There is no evidence of significant pericardial effusion.
[2016-11-20 19:05] VITALS: BP 135/70
[2016-11-20] MEDS: ATORVASTATIN CALCIUM 10 MG TABLET. PO SCH (21:00)
[2016-11-21] VITALS (11 sets, daily range): BP systolic 90–140; BP diastolic 48–83
[2016-11-21] MEDS: FAMOTIDINE 20 MG/2 ML VIAL IVP SCH ×3 (00:50→21:38)
[2016-11-21 05:14] LABS: BASO % 0 % (0-3); EOS % 0 % (0-3); HEMATOCRIT 32.6 % (39.0-53.0); HEMOGLOBIN 11.3 g/dL (13.0-17.5); LYMPH # 0.5 x10^3/uL (1.0-4.8); LYMPH % 5 % (24-48); MEAN CORPUSCULAR HEMOGLOBIN 34 pg (25-35); MEAN CORPUSCULAR HGB CONC 35 g/dL (31-37); MEAN CORPUSCULAR VOLUME 100 fL (79-100); MONO % 17 % (0-9); NEUT % 79 % (31-73); PLATELET COUNT 152 x10^3/uL (140-400); RED BLOOD COUNT 3.27 x10^6/uL (4.30-5.70); RED CELL DISTRIBUTION WIDTH 13.4 % (11.5-14.5); WHITE BLOOD COUNT 10.5 x10^3/uL (4.0-11.0)
[2016-11-21] MEDS ORDERED: MORPHINE SULFATE 2 MG/ML DISP.SYRIN. IV PRN (07:00)
[2016-11-21] MEDS ORDERED: PROCHLORPERAZINE 10 MG/2 ML VIAL. IV PRN (07:00)
[2016-11-21] MEDS ORDERED: HYDROmorphone 2 MG/ML VIAL IV PRN (07:00)
[2016-11-21] MEDS ORDERED: IV RINGERS,LACTATED 1000ML 1,000 ML IV SCH (07:00)
[2016-11-21] MEDS ORDERED: LIDOCAINE 1% 1 ML SYRINGE. ID PRN (07:00)
[2016-11-21] MEDS ORDERED: ONDANSETRON PF 4 MG/2 ML VIAL. IV PRN (07:00)
[2016-11-21] MEDS ORDERED: fentaNYL PF VIAL 100 MCG/2 ML VIAL IV PRN ×3 (07:00→13:30)
[2016-11-21] MEDS ORDERED: DEXAMETHASONE SOD PHOS 20 MG/5 ML VIAL. ONE (07:20)
[2016-11-21] MEDS ORDERED: LIDOCAINE 2% PF Vial for OR 5 ML VIAL. ONE (07:20)
[2016-11-21] MEDS ORDERED: ONDANSETRON PF 4 MG/2 ML VIAL. ONE (07:20)
[2016-11-21] MEDS ORDERED: PROPOFOL 20 ML IV ONE (07:20)
[2016-11-21] MEDS ORDERED: ePHEDrine PF IN SALINE 50 MG/5 ML DISP.SYRIN IV ONE (07:21)
[2016-11-21] MEDS ORDERED: fentaNYL PF VIAL 250 MCG/5 ML VIAL ONE (07:21)
[2016-11-21] MEDS ORDERED: PHENYLEPHRINE in 0.9% NACL PF 1 MG/10 ML DISP.SYRIN. IV ONE (07:21)
[2016-11-21] MEDS ORDERED: ROCURONIUM 50 MG/5 ML VIAL. ONE ×3 (07:22→11:00)
[2016-11-21] MEDS ORDERED: FAMOTIDINE 20 MG/2 ML VIAL ONE (07:23)
[2016-11-21] MEDS ORDERED: SURGICEL HEMOSTAT 4X8 EACH. ONE ×2 (07:33→10:11)
[2016-11-21] MEDS ORDERED: BUPIVACAINE-EPI 0.5%-1:200000 50 ML VIAL. ONE (07:34)
[2016-11-21] MEDS ORDERED: SUCCINYLCHOLINE 200 MG/10 ML VIAL. ONE (07:59)
[2016-11-21] MEDS: DUTASTERIDE 0.5 MG CAPSULE PO SCH (09:00)
[2016-11-21] MEDS ORDERED: SEVOFLURANE > 120 MINUTES. IH ONE ×2 (09:24→12:46)
[2016-11-21 09:31] LABS: HEMATOCRIT 29.2 % (39.0-53.0); HEMOGLOBIN 10.1 g/dL (13.0-17.5)
--- NOTE | 2016-11-21 09:46 | PDOC ---
PROGRESS NOTES Chief Complaint Chief Complaint hematemesis ASSESSMENT AND PLAN: 1. UGIB: known large hiatal hernia with ulceration and esophagitis on prior EGD early 2017. appreciate Dr Mendoza's and Dr Partida's input and help with management. planned surgical repair today 2. 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 obtain anemia labs 3. Leukocytosis: reactive, resolving 4. Arrhythmia: hx pacer placement 5. Prophylaxis: SCDs; medical anticoag contraindicated Vitals Vitals Vital Signs Date Time Temp Pulse Resp B/P (MAP) Pulse Ox O2 Delivery O2 Flow Rate FiO2 11/21/16 07:30 97.4 69 12 135/72 98 Room Air 2 97.4 Physical Exam General: Alert, Cooperative, No acute distress Heart: Regular rate Lungs: Clear Abdomen: Soft (mildly tender upper mid abdomen, no guarding or peritoneal signs ), No hepatosplenomegaly Extremities: No clubbing, No cyanosis Skin: No rashes, No breakdown Labs LABS Laboratory Tests Test 11/20/16 11:50 11/20/16 18:00 11/21/16 03:30 Troponin I Quantitative 0.030 ng/mL (0.000-0.055) 0.030 ng/mL (0.000-0.055) White Blood Count 10.5 x10^3/uL (4.0-11.0) Red Blood Count 3.27 x10^6/uL (4.30-5.70) Hemoglobin 11.3 g/dL (13.0-17.5) Hematocrit 32.6 % (39.0-53.0) Mean Corpuscular Volume 100 fL (79-100) Mean Corpuscular Hemoglobin 34 pg (25-35) Mean Corpuscular Hemoglobin Concent 35 g/dL (31-37) Red Cell Distribution Width 13.4 % (11.5-14.5) Platelet Count 152 x10^3/uL (140-400) Neutrophils (%) (Auto) 79 % (31-73) Lymphocytes (%) (Auto) 5 % (24-48) Monocytes (%) (Auto) 17 % (0-9) Eosinophils (%) (Auto) 0 % (0-3) Basophils (%) (Auto) 0 % (0-3) Neutrophils # (Auto) 8.3 x10^3uL (1.8-7.7) Lymphocytes # (Auto) 0.5 x10^3/uL (1.0-4.8) Monocytes # (Auto) 1.8 x10^3/uL (0.0-1.1) Eosinophils # (Auto) 0.0 x10^3/uL (0.0-0.7) Basophils # (Auto) 0.0 x10^3/uL (0.0-0.2) Lactic Acid Level 1.1 mmol/L (0.4-2.0) MADDISON JI MD Nov 21, 2016 09:46
--- NOTE | 2016-11-21 10:08 | PDOC ---
Objective: Vital Signs: Vital Signs Date Time Temp Pulse Resp B/P (MAP) Pulse Ox O2 Delivery O2 Flow Rate FiO2 11/21/16 07:30 97.4 69 12 135/72 98 Room Air 2 97.4 Labs: Laboratory Tests Test 11/20/16 11:50 11/20/16 18:00 11/21/16 03:30 11/21/16 09:20 Troponin I Quantitative 0.030 ng/mL 0.030 ng/mL White Blood Count 10.5 x10^3/uL Red Blood Count 3.27 x10^6/uL Hemoglobin 11.3 g/dL 10.1 g/dL Hematocrit 32.6 % 29.2 % Mean Corpuscular Volume 100 fL Mean Corpuscular Hemoglobin 34 pg Mean Corpuscular Hemoglobin Concent 35 g/dL Red Cell Distribution Width 13.4 % Platelet Count 152 x10^3/uL Neutrophils (%) (Auto) 79 % Lymphocytes (%) (Auto) 5 % Monocytes (%) (Auto) 17 % Eosinophils (%) (Auto) 0 % Basophils (%) (Auto) 0 % Neutrophils # (Auto) 8.3 x10^3uL Lymphocytes # (Auto) 0.5 x10^3/uL Monocytes # (Auto) 1.8 x10^3/uL Eosinophils # (Auto) 0.0 x10^3/uL Basophils # (Auto) 0.0 x10^3/uL Lactic Acid Level 1.1 mmol/L Potassium Level 3.6 mmol/L PE: no exam A/P: Large hiatal hernia w/ recurrent n/v, chest pain -- Out for surgery w/ Dr. Partida, will follow. ANGELA SCHNEIDER Nov 21, 2016 10:08
[2016-11-21 10:17] LABS: CREATININE 0.8 mg/dL (0.7-1.3); GFR 91.9; POTASSIUM 3.6 mmol/L (3.5-5.1)
[2016-11-21 10:18] LABS: CALCIUM 7.3 mg/dL (8.5-10.1)
[2016-11-21 10:19] LABS: FOLATE 9.15 ng/ml (3.2-20.0)
[2016-11-21 10:22] LABS: % SAT IRON 26 % (15-34); IRON,SERUM 46 ug/dL (65-175)
[2016-11-21] MEDS ORDERED: SODIUM BICARB ADULT 8.4% 50 MEQ/50 ML DISP.SYRIN. ONE (10:34)
[2016-11-21 10:44] LABS: FERRITIN 109 ng/mL (26-388); LACTATE DEHYDROGENASE 195 U/L (85-227)
--- NOTE | 2016-11-21 13:15 | PDOC4 ---
Operative Note Operative Note Operative Note: Preoperative Diagnosis: Large paraesophageal hernia Postoperative Diagnosis: Large paraesophageal hernia, ischemic segment of stomach Procedure: Laparoscopic repair of large paraesophageal hernia, open partial gastrectomy, placement of gastrostomy with gastropexy Surgeon: Jaquan Palacios.: Dr. Encarnacion Anesthesia: Gen. Estimated Blood Loss: 50 mL Specimen: Portion of greater curvature of stomach Drains: Gastrostomy tube Findings: dilated, thinned ischemic appearing area of greater curvature Disposition: To ICU in stable condition Indications: The patient is an 86-year-old male who was admitted with abdominal pain. He had a known history of a large hiatal hernia, and was offered surgical repair. The risks of surgery were discussed with him and his , which include bleeding, infection, recurrent herniation, gastric or esophageal perforation, visceral injury, recurrent reflux, gas bloat syndrome, dysphasia, potential need for additional surgeries or procedures. They understands and would like to proceed. Description: The patient was taken to the operating room and placed supine on the operating table. General anesthesia was performed. The patient was then placed in lithotomy. The abdomen was prepped with ChloraPrep and draped in a standard surgical fashion. A small incision was made superior to and to the patient's left of the umbilicus through which a visualized 5 mm trocar was inserted. A pneumoperitoneum was then created and the laparoscope was introduced. In the right lateral abdomen a 12 mm trocar was inserted through which a soft fan retractor was used to elevate the left lobe of the liver. There was a sizeable left lobe cystic mass which was readily seen. In the right upper quadrant a 5 mm trocar was inserted. In the left upper quadrant an 11 mm trocar was inserted while in the left lateral abdomen a 5 mm trocar was inserted. Attention was then directed to the diaphragmatic hiatus. As expected there was a large hiatal hernia defect with much of the stomach present in the chest. A large amount of stomach and omentum was pulled out of the chest and able to be reduced. The patient had a significant degree of gastric dilation which was improved with placement of an orogastric tube. We then began mobilizing the hernia sac within the mediastinum. We started this on the right side and began freeing up the sac from the right marito. The Harmonic scalpel assisted for much of this dissection. We continued mobilizing the sac superiorly well into the mediastinum. We continued this dissection anteriorly freeing up the sac and its attachments in this location. The dissection then continued along the left marito and the sac and attachments were mobilized here as well. Due to the large size and redundancy of the sac considerable time was required in freeing this out of the mediastinum. There was some serous fluid and sac edema consistent with inflammatory change. The gastrocolic omentum was then opened with the Harmonic scalpel in the upper portion of the greater curvature. The patient had marked thickening of some of the omental attachments from what appeared to be an acute on chronic inflammatory process. A portion of the greater curvature and fundus of the stomach showed some darker discoloration which we felt initially was due to intraluminal old blood. We then freed up the upper part of the greater curvature and fundus using the harmonic scalpel. Large blood vessels were doubly clipped and divided. The dissection continued all the way back up to the left marito and any remaining splenic attachments were also mobilized. Further inspection of the greater curvature of the stomach appeared to show more of an ischemic appearance as opposed to just intraluminal old blood. The gastric wall appeared discolored and thinned out with the remainder of the stomach appearing normal. In fact, there appeared to be a small perforation along the posterior aspect of the ischemic segment. It is not clear if it was from the ischemic process itself, or from traction applied during the mobilization, or perhaps a combination of both. The degree of contamination was minimal and the small perforation was closed with a 2-0 vicryl suture. Given the ischemic appearance of the stomach it appeared that a partial gastrectomy would be required. At this point the entire stomach had been laparoscopically reduced into the abdomen and the hernia sac had been fully mobilized out of the chest. We elected to convert to an open procedure for the gastrectomy. The ports were removed and the pneumoperitoneum was relieved. An upper vertical midline incision was made with a scalpel which was carried just below the umbilicus. Cautery dissection was carried down to the fascia. The fascia and peritoneum were then divided and the abdominal cavity was entered. The Omni retractor was used for the remainder of the case to facilitate exposure. Inspection of the stomach confirmed the laparoscopic findings, with a markedly thinned and dilated, ischemic appearing portion of the greater curvature. It appeared to be well demarcated from the remainder of the stomach which appeared normal. Several loads of the [place] 60 stapler were used to resect the involved segment of the greater curvature. The specimen was sent to pathology. The staple lines appeared well intact with good hemostasis. We attempted to visualize the crura of the diaphragm and had some difficulty with exposure. Given this we elected to proceed with a gastrostomy tube placement and gastropexy to try to prevent further herniation through the hiatus. Two concentric 2-0 silk pursestring sutures were placed in a dependent portion of the stomach. A 24 FR gastrostomy tube was placed through the prior left upper quadrant trocar incision. An opening was made in the stomach and the Gtube was placed within. The pursestring sutures were tied securing the tube. The stomach around the tube was anchored to the abdominal wall using the silk sutures. Additional 3-0 silk sutures were used for a gastropexy, anchoring several other areas of the anterior gastric wall to the abdominal wall. Hemostasis was good at this point and no other abnormalities were seen. The fascia was closed with a running 1 PDS suture. The skin incisions were closed with 4-0 Monocryl. Steri-Strips and dressings were applied. The patient was transferred to the ICU in stable condition. SYDNEE MCCRACKEN MD Nov 21, 2016 13:15
[2016-11-21 14:07] LABS: BASE EXCESS COOX -4 mmol/L (-3-3); CARBON MONOXIDE 0.2 % (0.0-1.9); HCO3 COOX 22 mmol/L (21-28); METHEMOGLOBIN 0.2 % (0.0-1.9); OXYHEMOGLOBIN 97.1 %; PCO2 COOX 42 mmHg (35-46); PH COOX 7.34 (7.35-7.45); PO2 COOX 111 mmHg (65-108); SAT O2 COOX 98 % (92-99); TOTAL HEMOGLOBIN 12.4 g/dL
[2016-11-21 14:08] LABS: FIO2 COOX 100
--- NOTE | 2016-11-21 14:09 | RAD ---
Indication postop. Vomiting. Assess for potential aspiration. A single view of the chest was obtained. Comparison is made to the most recent examination 04/13/2015. There is mild unchanged cardiomegaly. There are pleural parenchymal scars in the left lung and to a lesser extent in the right. There are bilateral pleural effusions. There are pulmonary infiltrates which may reflect pulmonary edema. A component of hemorrhage or infection is not excluded. There is volume loss in the left lower lobe which may reflect atelectasis. Endotracheal tube is appropriately positioned above the mala. Bipolar cardiac pacing device is noted. 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 IMPRESSION: Stable cardiomegaly. Pleural effusions. Volume loss in the left lung may reflect atelectasis or pneumonia. Pulmonary infiltrates suggesting pulmonary edema. A component of infection or hemorrhage is not excluded. Appropriately positioned endotracheal tube
--- NOTE | 2016-11-21 14:40 | PDOC2 ---
CONSULT Date of Consult Date of Consult DATE: 11/21/16 TIME: 14:21 Reason for Consult Reason for Consult: RESP FAILURE VENT MANAGEMENT Referring Physician Referring Physician: DR MCCRACKEN Identification/Chief Complaint Chief Complaint ON VENT Problems: Source Source: Chart review History of Present Illness Reason for Visit: PT HAD RESP DISTRESS DURING INDUCTION OF ANESTHESIA HAD PERIODS OF EMESIS CURRENTLY ON VENT Preoperative Diagnosis: Large paraesophageal hernia Postoperative Diagnosis: Large paraesophageal hernia, ischemic segment of stomach Procedure: Laparoscopic repair of large paraesophageal hernia, open partial gastrectomy, placement of gastrostomy with gastropexy Past Medical History Cardiovascular: HTN, Hyperlipidemia, Other (SSS s/p PPM, abdominal aortic aneurysm) CENTRAL NERVOUS SYSTEM: Dementia GI: No pertinent hx Heme/Onc: No pertinent hx Hepatobiliary: No pertinent hx Psych: No pertinent hx Musculoskeletal: Osteoarthritis Rheumatologic: No pertinent hx Infectious disease: No pertinent hx ENT: No pertinent hx Renal/: No pertinent hx Endocrine: No pertinent hx Past Surgical History Past Surgical History: Pacemaker, Cataract Removal Family History Family History: Other (noncontributory ) Social History No ALCOHOL: none Drugs: None Lives: with Family Current Problem List Problem List Problems Medical Problems: (1) Upper GI bleeding Status: Acute Current Medications Current Medications Current Medications Sodium Chloride 1,000 ml @ 1,000 mls/hr 1X ONCE IV Last administered on 20:55; Start 11/19/16 at 20:45; Stop 11/19/16 at 21:44; Status DC Famotidine (Pepcid) 40 mg 1X ONCE IVP Last administered on 11/19/16 21:54; Start 11/19/16 at 21:30; Stop 11/19/16 at 21:31; Status DC Ondansetron HCl (Zofran) 4 mg PRN Q8HRS PRN IV NAUSEA/VOMITING Last administered on 11/19/16 21:54; Start 11/19/16 at 21:45; Stop 11/20/16 at 10:44 ; Status DC Morphine Sulfate 2 mg PRN Q2HR PRN IV PAIN; Start 11/19/16 at 21:45; Stop 11/20 at 21:44; Status DC Sodium Chloride 1,000 ml @ 110 mls/hr Q9H6M IV Last administered on 11/20/16 17:53; Start 11/19/16 at 21:41; Stop 11/20/16 at 21:40; Status DC Ondansetron HCl (Zofran) 4 mg PRN Q6HRS PRN IV NAUSEA/VOMITING; Start 11/20/16 at 10:42; Stop 11/21/16 at 10:41; Status DC Famotidine (Pepcid) 20 mg BID IVP Last administered on 11/21/16t 00:50; Start 11/20/16 at 11:00 Atorvastatin Calcium (Lipitor) 10 mg QHS PO ; Start 11/20/16 at 21:00 Dutasteride (Avodart) 0.5 mg DAILY PO ; Start 11/20/16 at 11:00 Labetalol HCl (Normodyne) 10 mg PRN Q2HR PRN IVP HYPERTENSION, SEE COMMENTS; Start 11/20/16 at 10:45 Acetaminophen (Tylenol) 500 mg PRN Q6HRS PRN PO MILD PAIN / TEMP; Start at 10:45 Ondansetron HCl (Zofran) 4 mg PRN Q6HRS PRN IV NAUSEA/VOMITING; Start 11/21/16 at 07:00; Stop 11/22/16 at 06:59 Fentanyl Citrate (Fentanyl 2ml Vial) 25 mcg PRN Q5MIN PRN IV MILD PAIN; Start 11/21/16 at 07:00; Stop 11/22/16 at 06:59 Fentanyl Citrate (Fentanyl 2ml Vial) 50 mcg PRN Q5MIN PRN IV MODERATE PAIN; Start 11/21/16 at 07:00; Stop 11/22/16 at 06:59 Morphine Sulfate 1 mg PRN Q10MIN PRN IV SEVERE PAIN; Start 11/21/16 at 07:00; Stop 11/22/16 at 06:59 Ringer's Solution 1,000 ml @ 30 mls/hr Q24H IV ; Start 11/21/16 at 07:00; Stop 11/21/16 at 18:59 Lidocaine HCl 2 ml PRN 1X PRN ID PRIOR TO IV START; Start 11/21/16 at 07:00; Stop 11/22/16 at 06:59 Hydromorphone HCl (Dilaudid) 0.5 mg PRN Q10MIN PRN IV SEV PAIN, Second choice; Start 11/21/16 at 07:00; Stop 11/22/16 at 06:59 Prochlorperazine Edisylate (Compazine) 5 mg PACU PRN PRN IV NAUSEA, MRX1; Start 11/21/16 at 07:00; Stop 11/22/16 at 06:59 Hydralazine HCl (Apresoline) 10 mg PRN Q4HRS PRN IVP ELEVATED BP, SEE COMMENTS ; Start 11/20/16 at 15:30 Propofol 20 ml @ As Directed STK-MED ONCE IV ; Start 11/21/16 at 07:20; Stop at 07:21; Status DC Lidocaine HCl (Lidocaine Pf 2% Vial) 5 ml STK-MED ONCE .ROUTE ; Start 11/21/16 at 07:20; Stop 11/21/16 at 07:21; Status DC Ondansetron HCl (Zofran) 4 mg STK-MED ONCE .ROUTE ; Start 11/21/16 at 07:20; Stop 11/21/16 at 07:21; Status DC Dexamethasone Sodium Phosphate (Decadron) 20 mg STK-MED ONCE .ROUTE ; Start at 07:20; Stop 11/21/16 at 07:21; Status DC Phenylephrine HCl 1 mg STK-MED ONCE IV ; Start 11/21/16 at 07:21; Stop 11/21/16 at 07:22; Status DC Ephedrine Sulfate 50 mg STK-MED ONCE IV ; Start 11/21/16 at 07:21; Stop at 07:22; Status DC Fentanyl Citrate (Fentanyl 5ml Vial) 250 mcg STK-MED ONCE .ROUTE ; Start at 07:21; Stop 11/21/16 at 07:22; Status DC Rocuronium [place] (Zemuron) 50 mg STK-MED ONCE .ROUTE ; Start 11/21/16 at 07:22 ; Stop 11/21/16 at 07:23; Status DC Famotidine (Pepcid) 20 mg STK-MED ONCE .ROUTE ; Start 11/21/16 at 07:23; Stop at 07:24; Status DC Cellulose 1 each STK-MED ONCE .ROUTE Last administered on 11/21/16t 10:29; Start 11/21/16 at 07:33; Stop 11/21/16 at 07:34; Status DC Bupivacaine HCl/ Epinephrine Bitart (Marcaine-Epi 0.5%-[id number]) 50 ml STK-MED ONCE .ROUTE Last administered on 11/21/16 08:43; Start 11/21/16 at 07:34; Stop 11/21/16 at 07:35; Status DC Cefazolin Sodium/ Dextrose 50 ml @ 100 mls/hr 1X PREOP ONCE IV Last administered on 11/21/16 08:25; Start 11/21/16 at 07:37; Stop 11/21/16 at 08:06 ; Status DC Succinylcholine Chloride (Anectine) 200 mg STK-MED ONCE .ROUTE ; Start 11/21/16 at 07:59; Stop 11/21/16 at 08:00; Status DC Sevoflurane (Ultane) 90 ml STK-MED ONCE IH ; Start 11/21/16 at 09:24; Stop 11/21 at 09:25; Status DC Rocuronium [place] (Zemuron) 50 mg STK-MED ONCE .ROUTE ; Start 11/21/16 at 09:25 ; Stop 11/21/16 at 09:26; Status DC Cellulose 1 each STK-MED ONCE .ROUTE ; Start 11/21/16 at 10:11; Stop 11/21/16 at 10:12; Status DC Sodium Bicarbonate 50 meq STK-MED ONCE .ROUTE ; Start 11/21/16 at 10:34; Stop at 10:35; Status DC Rocuronium [place] (Zemuron) 50 mg STK-MED ONCE .ROUTE ; Start 11/21/16 at 11:00 ; Stop 11/21/16 at 11:01; Status DC Sevoflurane (Ultane) 90 ml STK-MED ONCE IH ; Start 11/21/16 at 12:46; Stop 11/21 at 12:47; Status DC Piperacillin Sod/ Tazobactam Sod 3.375 gm/Sodium Chloride 50 ml @ 100 mls/hr Q6HRS IV ; Start 11/21/16 at 14:00 Fentanyl Citrate (Fentanyl 2ml Vial) 25 mcg PRN Q2HR PRN IV PAIN; Start at 13:30 Fentanyl Citrate (Fentanyl 2ml Vial) 50 mcg PRN Q2HR PRN IV PAIN; Start at 13:30 Propofol 100 ml @ 0 mls/hr CONT PRN IV PER PROTOCOL; Start 11/21/16 at 13:30 Fentanyl Citrate (Fentanyl 2ml Vial) 25 mcg PRN Q1HR PRN IV COMM; Start at 13:30 Fentanyl Citrate (Fentanyl 2ml Vial) 50 mcg PRN Q1HR PRN IV COMM; Start at 13:30 Chlorhexidine Gluconate (Peridex) 15 ml BID MM ; Start 11/21/16 at 21:00 Active Scripts Active Reported Aspir 81 (Aspirin) 81 Mg Tablet.dr 81 Mg PO DAILY Atorvastatin Calcium 10 Mg Tablet 1 Tab PO DAILY Aspirin 81 Mg Tab.chew 1 Tab PO DAILY Avodart (Dutasteride) 0.5 Mg Capsule 1 Cap PO DAILY Allergies Allergies: Coded Allergies: No Known Drug Allergies (Unverified , 11/21/16) ROS Review of System UNABLE TO OBTAIN SEC TO VENT SUPPORT Physical Exam Physical Exam ON AC VENT RATE 12 General: Other (SEDATED) HEENT: EOMI Lungs: Clear to auscultation Heart: Regular rate, Normal S1, Normal S2 Abdomen: Other (TUBE IN PLACE) Extremities: No clubbing, No cyanosis Skin: No rashes, No breakdown Neuro: Other (SEDATED) Psych/Mental Status: Other (SEDATED) Vitals VITALS Vital Signs Date Time Temp Pulse Resp B/P (MAP) Pulse Ox O2 Delivery O2 Flow Rate FiO2 11/21/16 07:30 97.4 69 12 135/72 98 Room Air 2 97.4 Labs Labs Laboratory Tests Test 11/19/16 20:17 11/19/16 20:56 11/20/16 05:25 11/20/16 11:50 White Blood Count 22.2 x10^3/uL (4.0-11.0) 18.7 x10^3/uL (4.0-11.0) Red Blood Count 4.15 x10^6/uL (4.30-5.70) 3.71 x10^6/uL (4.30-5.70) Hemoglobin 13.9 g/dL (13.0-17.5) 12.9 g/dL (13.0-17.5) Hematocrit 41.9 % (39.0-53.0) 36.6 % (39.0-53.0) Mean Corpuscular Volume 101 fL (79-100) 99 fL (79-100) Mean Corpuscular Hemoglobin 34 pg (25-35) 35 pg (25-35) Mean Corpuscular Hemoglobin Concent 33 g/dL (31-37) 35 g/dL (31-37) Red Cell Distribution Width 13.0 % (11.5-14.5) 13.1 % (11.5-14.5) Platelet Count 202 x10^3/uL (140-400) 177 x10^3/uL (140-400) Neutrophils (%) (Auto) 89 % (31-73) 85 % (31-73) Lymphocytes (%) (Auto) 3 % (24-48) 4 % (24-48) Monocytes (%) (Auto) 8 % (0-9) 11 % (0-9) Eosinophils (%) (Auto) 0 % (0-3) 0 % (0-3) Basophils (%) (Auto) 0 % (0-3) 0 % (0-3) Neutrophils # (Auto) 19.7 x10^3uL (1.8-7.7) 15.9 x10^3uL (1.8-7.7) Lymphocytes # (Auto) 0.6 x10^3/uL (1.0-4.8) 0.6 x10^3/uL (1.0-4.8) Monocytes # (Auto) 1.9 x10^3/uL (0.0-1.1) 2.1 x10^3/uL (0.0-1.1) Eosinophils # (Auto) 0.0 x10^3/uL (0.0-0.7) 0.0 x10^3/uL (0.0-0.7) Basophils # (Auto) 0.0 x10^3/uL (0.0-0.2) 0.0 x10^3/uL (0.0-0.2) Segmented Neutrophils % 80 % (35-66) Band Neutrophils % 2 % (0-9) Lymphocytes % 9 % (24-48) Monocytes % 9 % (0-10) Toxic Vacuolation Slight Platelet Estimate Adequate (ADEQUATE) Sodium Level 143 mmol/L (136-145) 142 mmol/L (136-145) Potassium Level 3.4 mmol/L (3.5-5.1) 3.7 mmol/L (3.5-5.1) Chloride Level 104 mmol/L (98-107) 107 mmol/L (98-107) Carbon Dioxide Level 28 mmol/L (21-32) 25 mmol/L (21-32) Anion Gap 11 (6-14) 10 (6-14) Blood Urea Nitrogen 50 mg/dL (8-26) 46 mg/dL (8-26) Creatinine 1.5 mg/dL (0.7-1.3) 1.0 mg/dL (0.7-1.3) Estimated GFR (Cockcroft-Gault) 44.5 71.0 Glucose Level 109 mg/dL (70-99) 119 mg/dL (70-99) Lactic Acid Level 3.5 mmol/L (0.4-2.0) Calcium Level 10.0 mg/dL (8.5-10.1) 9.0 mg/dL (8.5-10.1) Total Bilirubin 0.9 mg/dL (0.2-1.0) Direct Bilirubin 0.2 mg/dL (0.0-0.2) Aspartate Amino Transf (AST/SGOT) 69 U/L (15-37) Alanine Aminotransferase (ALT/SGPT) 27 U/L (16-63) Alkaline Phosphatase 64 U/L (46-116) Troponin I Quantitative 0.056 ng/mL (0.000-0.055) 0.030 ng/mL (0.000-0.055) Total Protein 7.5 g/dL (6.4-8.2) Albumin 3.8 g/dL (3.4-5.0) Lipase 274 U/L (73-393) Urine Collection Type Unknown Urine Color Yellow Urine Clarity Clear Urine pH 5.5 Urine Specific [place] >=1.030 Urine Protein 30 mg/dL (NEG-TRACE) Urine Glucose (UA) Negative mg/dL (NEG) Urine Ketones (Stick) Negative mg/dL (NEG) Urine Blood Trace (NEG) Urine Nitrite Negative (NEG) Urine Bilirubin Negative (NEG) Urine Urobilinogen Dipstick 0.2 mg/dL (0.2 mg/dL) Urine Leukocyte Esterase Negative (NEG) Urine RBC Occ /HPF (0-2) Urine WBC 5-10 /HPF (0-4) Urine Squamous Epithelial Cells Few /LPF Urine Transitional Epithelial Cells Few /LPF Urine Renal Epithelial Cells Occ /LPF Urine Bacteria 0 /HPF (0-FEW) Urine Hyaline Casts Moderate /HPF Urine Mucus Mod /LPF Test 11/20/16 18:00 11/21/16 03:30 11/21/16 09:20 11/21/16 14:05 Troponin I Quantitative 0.030 ng/mL (0.000-0.055) White Blood Count 10.5 x10^3/uL (4.0-11.0) Red Blood Count 3.27 x10^6/uL (4.30-5.70) Hemoglobin 11.3 g/dL (13.0-17.5) 10.1 g/dL (13.0-17.5) Hematocrit 32.6 % (39.0-53.0) 29.2 % (39.0-53.0) Mean Corpuscular Volume 100 fL (79-100) Mean Corpuscular Hemoglobin 34 pg (25-35) Mean Corpuscular Hemoglobin Concent 35 g/dL (31-37) Red Cell Distribution Width 13.4 % (11.5-14.5) Platelet Count 152 x10^3/uL (140-400) Neutrophils (%) (Auto) 79 % (31-73) Lymphocytes (%) (Auto) 5 % (24-48) Monocytes (%) (Auto) 17 % (0-9) Eosinophils (%) (Auto) 0 % (0-3) Basophils (%) (Auto) 0 % (0-3) Neutrophils # (Auto) 8.3 x10^3uL (1.8-7.7) Lymphocytes # (Auto) 0.5 x10^3/uL (1.0-4.8) Monocytes # (Auto) 1.8 x10^3/uL (0.0-1.1) Eosinophils # (Auto) 0.0 x10^3/uL (0.0-0.7) Basophils # (Auto) 0.0 x10^3/uL (0.0-0.2) Lactic Acid Level 1.1 mmol/L (0.4-2.0) Iron Level 46 ug/dL (65-175) Total Iron Binding Capacity 179 ug/dL (250-450) Iron Saturation 26 % (15-34) Vitamin B12 Level 339 pg/mL (247-911) Serum Folate 9.15 ng/ml (3.2-20.0) Reticulocyte Count (auto) 0.8 % (0.5-2.5) Sodium Level 147 mmol/L (136-145) Potassium Level 3.6 mmol/L (3.5-5.1) Chloride Level 115 mmol/L (98-107) Carbon Dioxide Level 23 mmol/L (21-32) Anion Gap 9 (6-14) Blood Urea Nitrogen 50 mg/dL (8-26) Creatinine 0.8 mg/dL (0.7-1.3) Estimated GFR (Cockcroft-Gault) 91.9 Glucose Level 133 mg/dL (70-99) Calcium Level 7.3 mg/dL (8.5-10.1) Ferritin 109 ng/mL (26-388) Lactate Dehydrogenase 195 U/L (85-227) O2 Saturation 98 % (92-99) Arterial Blood pH 7.34 (7.35-7.45) Arterial Blood pCO2 at Patient Temp 42 mmHg (35-46) Arterial Blood pO2 at Patient Temp 111 mmHg (65-108) Arterial Blood HCO3 22 mmol/L (21-28) Arterial Blood Base Excess -4 mmol/L (-3-3) Oxyhemoglobin 97.1 % Methemoglobin 0.2 % (0.0-1.9) Carbon Monoxide, Quantitative 0.2 % (0.0-1.9) FiO2 100 Laboratory Tests Test 11/20/16 18:00 11/21/16 03:30 11/21/16 09:20 11/21/16 14:05 Troponin I Quantitative 0.030 ng/mL (0.000-0.055) White Blood Count 10.5 x10^3/uL (4.0-11.0) Red Blood Count 3.27 x10^6/uL (4.30-5.70) Hemoglobin 11.3 g/dL (13.0-17.5) 10.1 g/dL (13.0-17.5) Hematocrit 32.6 % (39.0-53.0) 29.2 % (39.0-53.0) Mean Corpuscular Volume 100 fL (79-100) Mean Corpuscular Hemoglobin 34 pg (25-35) Mean Corpuscular Hemoglobin Concent 35 g/dL (31-37) Red Cell Distribution Width 13.4 % (11.5-14.5) Platelet Count 152 x10^3/uL (140-400) Neutrophils (%) (Auto) 79 % (31-73) Lymphocytes (%) (Auto) 5 % (24-48) Monocytes (%) (Auto) 17 % (0-9) Eosinophils (%) (Auto) 0 % (0-3) Basophils (%) (Auto) 0 % (0-3) Neutrophils # (Auto) 8.3 x10^3uL (1.8-7.7) Lymphocytes # (Auto) 0.5 x10^3/uL (1.0-4.8) Monocytes # (Auto) 1.8 x10^3/uL (0.0-1.1) Eosinophils # (Auto) 0.0 x10^3/uL (0.0-0.7) Basophils # (Auto) 0.0 x10^3/uL (0.0-0.2) Lactic Acid Level 1.1 mmol/L (0.4-2.0) Iron Level 46 ug/dL (65-175) Total Iron Binding Capacity 179 ug/dL (250-450) Iron Saturation 26 % (15-34) Vitamin B12 Level 339 pg/mL (247-911) Serum Folate 9.15 ng/ml (3.2-20.0) Reticulocyte Count (auto) 0.8 % (0.5-2.5) Sodium Level 147 mmol/L (136-145) Potassium Level 3.6 mmol/L (3.5-5.1) Chloride Level 115 mmol/L (98-107) Carbon Dioxide Level 23 mmol/L (21-32) Anion Gap 9 (6-14) Blood Urea Nitrogen 50 mg/dL (8-26) Creatinine 0.8 mg/dL (0.7-1.3) Estimated GFR (Cockcroft-Gault) 91.9 Glucose Level 133 mg/dL (70-99) Calcium Level 7.3 mg/dL (8.5-10.1) Ferritin 109 ng/mL (26-388) Lactate Dehydrogenase 195 U/L (85-227) O2 Saturation 98 % (92-99) Arterial Blood pH 7.34 (7.35-7.45) Arterial Blood pCO2 at Patient Temp 42 mmHg (35-46) Arterial Blood pO2 at Patient Temp 111 mmHg (65-108) Arterial Blood HCO3 22 mmol/L (21-28) Arterial Blood Base Excess -4 mmol/L (-3-3) Oxyhemoglobin 97.1 % Methemoglobin 0.2 % (0.0-1.9) Carbon Monoxide, Quantitative 0.2 % (0.0-1.9) FiO2 100 Images Images PORTABLE PENDING Assessment/Plan Assessment/Plan ACUTE RESP FAILURE ASPIRATION PNEUMONIA S/P SEE OP NOTE Laparoscopic repair of large paraesophageal hernia, MELENA ARF PLAN SEE ORDERS D/W ANESTHESIA BROCH PRIOR TO EXTUBATION SABRINA VALLEJO MD Nov 21, 2016 14:40
[2016-11-21] MEDS: POTASSIUM CL 40MEQ D5-0.45NACL 1,000 ML IV SCH (14:49)
[2016-11-21] MEDS: PIPERACILLIN/TAZOBACTAM 3.375 GM in IV NORMAL SALINE 50ML 50 ML IV SCH ×2 (15:06→17:56)
[2016-11-21 15:10] LABS: ART BE ISTAT -7 mmol/L (0-3); ART GLUC ISTAT 117 mg/dL (70-99); ART HCO3 ISTAT 19 mmol/L (21-28); ART HCT ISTAT 31 % (37-52); ART HGB ISTAT 10.5 g/dL (14-18); ART K ISTAT 3.1 mmol/L (3.5-5.0); ART NA ISTAT 147 mmol/L (135-145); ART PCO2 ISTAT 38 mmHg (35-45); ART PH ISTAT 7.31 (7.35-7.45); ART PO2 ISTAT 138 mmHg (75-100); ART SAT O2 SAT 99 % (95-99); ART TCO2 ISTAT 20 mmol/L (21-32); TOSPEC ART
[2016-11-21 15:10] LABS: ART BE ISTAT -8 mmol/L (0-3); ART GLUC ISTAT 139 mg/dL (70-99); ART HCO3 ISTAT 20 mmol/L (21-28); ART HCT ISTAT 31 % (37-52); ART HGB ISTAT 10.5 g/dL (14-18); ART ION CA ISTAT 1.25 mmol/L (1.13-1.32); ART K ISTAT 3.4 mmol/L (3.5-5.0); ART NA ISTAT 146 mmol/L (135-145); ART PCO2 ISTAT 51 mmHg (35-45); ART PO2 ISTAT 89 mmHg (75-100); ART SAT O2 SAT 94 % (95-99); ART TCO2 ISTAT 22 mmol/L (21-32); TOSPEC ART
[2016-11-21] MEDS: fentaNYL PF VIAL 100 MCG/2 ML VIAL IV PRN (17:42)
[2016-11-21] MEDS: ATORVASTATIN CALCIUM 10 MG TABLET. PO SCH (21:00)
[2016-11-21] MEDS: CHLORHEXIDINE 0.12% 15 ML MOUTHWASH. MM SCH (21:38)
[2016-11-21] MEDS: PROPOFOL 100 ML IV PRN (21:39)
[2016-11-22] VITALS (25 sets, daily range): BP systolic 94–142; BP diastolic 48–98
[2016-11-22] MEDS: PIPERACILLIN/TAZOBACTAM 3.375 GM in IV NORMAL SALINE 50ML 50 ML IV SCH ×5 (01:19→23:46)
--- NOTE | 2016-11-22 01:54 | ACF ---
Admission Forms Criteria GASTROINTESTINAL BLEEDING, LOWER Clinical Indications for Admission to Inpatient Care ( Place 'X' for any and all applicable criteria): Admission is indicated for ANY ONE of the following(1)(2)(3)(4)(5): [ ]I. Active gross bleeding per rectum [X]II. Inpatient admission required rather than observation care (Also use Gastrointestinal Bleeding, Lower: Observation Care as appropriate) because of ANY ONE of the following: [ ]a) Hemodynamic instability that is severe or persistent [ ]b) Anemia requiring inpatient admission as indicated by ALL of the following: [ ]1) Presence of significant clinical finding indicated by ANY ONE of the following: [ ]A. Tachycardia for age [ ]B. Orthostatic vital sign changes [ ]C. Cognitive impairment [ ]D. Heart failure [ ]E. Chest pain [ ]F. Exertional dyspnea [ ]G. Other findings suggesting inadequate perfusion (eg, peripheral or myocardial ischemia, end organ dysfunction) [ ]2) Initial (eg, emergency department, observation care) treatment with transfusion or volume replacement is judged inappropriate (due to severity of the finding) or has been ineffective [ ]c) Severe pain requiring acute inpatient management [ ]d) Absent bowel sounds with complete ileus [ ]e) Signs of intestinal obstruction or peritonitis [A] [ ]f) High-risk low platelet count [ ]g) Severe electrolyte abnormalities requiring inpatient care [ ]h) Acute renal failure [ ]i) High fever or infection requiring inpatient admission as indicated by ANY ONE of the following(8)(9): [ ]1) Appropriate outpatient or observation care antimicrobial treatment unavailable, not effective, or not feasible Documented bacteremia [ ]2) Documented bacteremia [ ]3) Temperature greater than 104.9 degrees F ( 40.5 degrees C) (oral) [ ]4) Temperature greater than 103.1 degrees F ( 39.5 degrees C) (oral) or less than 96.8 degrees F (36 degrees C) (rectal) that does not respond to all emergency treatment measures [ ]j) IV fluid to replace significant ongoing losses ( greater than 3 L/m2 per day) [ ]k) Immediate inpatient surgery needed [ ]l) Parenteral nutrition regimen that must be implemented on inpatient basis [X]m) Other condition, treatment or monitoring requiring inpatient admission [ ]III. Unstable comorbid illness (renal, hepatic, pulmonary, hematologic, neurologic, or cardiac) [ ]IV. Failure to control bleeding after colonoscopy [ ]V. Coagulopathy [ ]. Suspected or known ischemic colitis(6) [ ]VII. Previous aortic graft placement or known aortic aneurysm Extended stay beyond goal length of stay may be needed for(3)(4)(28): [ ]a) Emergency surgery [ ]b) Coagulation abnormalities(26) [ ]c) Recurrent or persistent bleeding, continued vital sign instability(27)( 28) [ ]d) Active comorbidities (eg, renal insufficiency, heart failure, pre- existing liver disease) The original [employer] content created by [employer] has been revised. The portions of the content which have been revised are identified through the use of italic text or in bold, and [facility] has neither reviewed nor approved the modified material. All other unmodified content is copyright [facility]. Please see references footnoted in the original [facility] edition 2016 Admission Criteria Met?: Yes CHRISTOPHER PINEDA Nov 22, 2016 01:54
[2016-11-22] MEDS: POTASSIUM CL 40MEQ D5-0.45NACL 1,000 ML IV SCH ×2 (02:24→16:06)
[2016-11-22] MEDS: DUTASTERIDE 0.5 MG CAPSULE PO SCH (07:39)
[2016-11-22 07:59] LABS: HCO3 ABG 22 mmol/L (21-28); PCO2 ABG 31 mmHg (35-46); PH ABG 7.46 (7.35-7.45); PO2 ABG 92 mmHg (65-108); SAT O2 ABG 97 % (92-99)
[2016-11-22 08:36] LABS: FIO2 ABG 50
--- NOTE | 2016-11-22 08:51 | PDOC ---
PROGRESS NOTES Subjective Subjective pt intubated Objective Objective Vital Signs Date Time Temp Pulse Resp B/P (MAP) Pulse Ox O2 Delivery O2 Flow Rate FiO2 11/22/16 08:00 99.2 78 24 135/68 (90) 100 Ventilator 99.2 11/21/16 18:21 2.0 Intake and Output 11/22/16 06:59 Intake Total 2028 ml Output Total 736 ml Balance 1292 ml Intake Oral 0 ml IV Total 2028 ml Output Urine Total 691 ml Drainage Total 45 ml # Bowel Movements 2 Physical Exam Abdomen: Soft (Gtube with some output) Assessment Assessment Problems Medical Problems: (1) Upper GI bleeding Status: Acute Plan Plan of Care Continue Gtube drainage, check cbc, supportive care Comment Labs Laboratory Tests Test 11/20/16 11:50 11/20/16 18:00 11/21/16 03:30 11/21/16 09:20 Troponin I Quantitative 0.030 ng/mL (0.000-0.055) 0.030 ng/mL (0.000-0.055) White Blood Count 10.5 x10^3/uL (4.0-11.0) Red Blood Count 3.27 x10^6/uL (4.30-5.70) Hemoglobin 11.3 g/dL (13.0-17.5) 10.1 g/dL (13.0-17.5) Hematocrit 32.6 % (39.0-53.0) 29.2 % (39.0-53.0) Mean Corpuscular Volume 100 fL (79-100) Mean Corpuscular Hemoglobin 34 pg (25-35) Mean Corpuscular Hemoglobin Concent 35 g/dL (31-37) Red Cell Distribution Width 13.4 % (11.5-14.5) Platelet Count 152 x10^3/uL (140-400) Neutrophils (%) (Auto) 79 % (31-73) Lymphocytes (%) (Auto) 5 % (24-48) Monocytes (%) (Auto) 17 % (0-9) Eosinophils (%) (Auto) 0 % (0-3) Basophils (%) (Auto) 0 % (0-3) Neutrophils # (Auto) 8.3 x10^3uL (1.8-7.7) Lymphocytes # (Auto) 0.5 x10^3/uL (1.0-4.8) Monocytes # (Auto) 1.8 x10^3/uL (0.0-1.1) Eosinophils # (Auto) 0.0 x10^3/uL (0.0-0.7) Basophils # (Auto) 0.0 x10^3/uL (0.0-0.2) Lactic Acid Level 1.1 mmol/L (0.4-2.0) Iron Level 46 ug/dL (65-175) Total Iron Binding Capacity 179 ug/dL (250-450) Iron Saturation 26 % (15-34) Vitamin B12 Level 339 pg/mL (247-911) Serum Folate 9.15 ng/ml (3.2-20.0) Reticulocyte Count (auto) 0.8 % (0.5-2.5) Sodium Level 147 mmol/L (136-145) Potassium Level 3.6 mmol/L (3.5-5.1) Chloride Level 115 mmol/L (98-107) Carbon Dioxide Level 23 mmol/L (21-32) Anion Gap 9 (6-14) Blood Urea Nitrogen 50 mg/dL (8-26) Creatinine 0.8 mg/dL (0.7-1.3) Estimated GFR (Cockcroft-Gault) 91.9 Glucose Level 133 mg/dL (70-99) Calcium Level 7.3 mg/dL (8.5-10.1) Ferritin 109 ng/mL (26-388) Lactate Dehydrogenase 195 U/L (85-227) Test 11/21/16 10:25 11/21/16 12:17 11/21/16 14:05 11/22/16 08:00 Bedside Hemoglobin (Calculated) 10.5 g/dL (14-18) 10.5 g/dL (14-18) Bedside Hematocrit 31 % (37-52) 31 % (37-52) Bedside Arterial pH 7.20 (7.35-7.45) 7.31 (7.35-7.45) Arterial Blood pH (Temp corrected) 7.22 7.34 Bedside Arterial pCO2 51 mmHg (35-45) 38 mmHg (35-45) Arterial Blood pCO2 (Temp correct) 48 mmHg 35 mmHg Bedside Arterial pO2 89 mmHg (75-100) 138 mmHg (75-100) Arterial Blood pO2 (Temp corrected) 81 mmHg 127 mmHg Bedside Arterial HCO3 20 mmol/L (21-28) 19 mmol/L (21-28) Bedside Arterial Total CO2 22 mmol/L (21-32) 20 mmol/L (21-32) Arterial Bld O2 Saturation (Measur) 94 % (95-99) 99 % (95-99) Bedside Arterial Blood Base Excess -8 mmol/L (0-3) -7 mmol/L (0-3) Bedside FiO2 100.0 100.0 Bedside Sodium 146 mmol/L (135-145) 147 mmol/L (135-145) Bedside Potassium 3.4 mmol/L (3.5-5.0) 3.1 mmol/L (3.5-5.0) Glucose Level 139 mg/dL (70-99) 117 mg/dL (70-99) Bedside Ionized Calcium (Dalia) 1.25 mmol/L (1.13-1.32) 1.20 mmol/L (1.13-1.32) O2 Saturation 98 % (92-99) 97 % (92-99) Arterial Blood pH 7.34 (7.35-7.45) 7.46 (7.35-7.45) Arterial Blood pCO2 at Patient Temp 42 mmHg (35-46) 31 mmHg (35-46) Arterial Blood pO2 at Patient Temp 111 mmHg (65-108) 92 mmHg (65-108) Arterial Blood HCO3 22 mmol/L (21-28) 22 mmol/L (21-28) Arterial Blood Base Excess -4 mmol/L (-3-3) -1 mmol/L (-3-3) Oxyhemoglobin 97.1 % Methemoglobin 0.2 % (0.0-1.9) Carbon Monoxide, Quantitative 0.2 % (0.0-1.9) FiO2 100 50 Laboratory Tests Test 11/21/16 09:20 11/21/16 10:25 11/21/16 12:17 11/21/16 14:05 Hemoglobin 10.1 g/dL (13.0-17.5) Hematocrit 29.2 % (39.0-53.0) Reticulocyte Count (auto) 0.8 % (0.5-2.5) Sodium Level 147 mmol/L (136-145) Potassium Level 3.6 mmol/L (3.5-5.1) Chloride Level 115 mmol/L (98-107) Carbon Dioxide Level 23 mmol/L (21-32) Anion Gap 9 (6-14) Blood Urea Nitrogen 50 mg/dL (8-26) Creatinine 0.8 mg/dL (0.7-1.3) Estimated GFR (Cockcroft-Gault) 91.9 Glucose Level 133 mg/dL (70-99) 139 mg/dL (70-99) 117 mg/dL (70-99) Calcium Level 7.3 mg/dL (8.5-10.1) Ferritin 109 ng/mL (26-388) Lactate Dehydrogenase 195 U/L (85-227) Bedside Hemoglobin (Calculated) 10.5 g/dL (14-18) 10.5 g/dL (14-18) Bedside Hematocrit 31 % (37-52) 31 % (37-52) Bedside Arterial pH 7.20 (7.35-7.45) 7.31 (7.35-7.45) Arterial Blood pH (Temp corrected) 7.22 7.34 Bedside Arterial pCO2 51 mmHg (35-45) 38 mmHg (35-45) Arterial Blood pCO2 (Temp correct) 48 mmHg 35 mmHg Bedside Arterial pO2 89 mmHg (75-100) 138 mmHg (75-100) Arterial Blood pO2 (Temp corrected) 81 mmHg 127 mmHg Bedside Arterial HCO3 20 mmol/L (21-28) 19 mmol/L (21-28) Bedside Arterial Total CO2 22 mmol/L (21-32) 20 mmol/L (21-32) Arterial Bld O2 Saturation (Measur) 94 % (95-99) 99 % (95-99) Bedside Arterial Blood Base Excess -8 mmol/L (0-3) -7 mmol/L (0-3) Bedside FiO2 100.0 100.0 Bedside Sodium 146 mmol/L (135-145) 147 mmol/L (135-145) Bedside Potassium 3.4 mmol/L (3.5-5.0) 3.1 mmol/L (3.5-5.0) Bedside Ionized Calcium (Dalia) 1.25 mmol/L (1.13-1.32) 1.20 mmol/L (1.13-1.32) O2 Saturation 98 % (92-99) Arterial Blood pH 7.34 (7.35-7.45) Arterial Blood pCO2 at Patient Temp 42 mmHg (35-46) Arterial Blood pO2 at Patient Temp 111 mmHg (65-108) Arterial Blood HCO3 22 mmol/L (21-28) Arterial Blood Base Excess -4 mmol/L (-3-3) Oxyhemoglobin 97.1 % Methemoglobin 0.2 % (0.0-1.9) Carbon Monoxide, Quantitative 0.2 % (0.0-1.9) FiO2 100 Test 11/22/16 08:00 O2 Saturation 97 % (92-99) Arterial Blood pH 7.46 (7.35-7.45) Arterial Blood pCO2 at Patient Temp 31 mmHg (35-46) Arterial Blood pO2 at Patient Temp 92 mmHg (65-108) Arterial Blood HCO3 22 mmol/L (21-28) Arterial Blood Base Excess -1 mmol/L (-3-3) FiO2 50 Medications Current Medications Sodium Chloride 1,000 ml @ 1,000 mls/hr 1X ONCE IV Last administered on 20:55; Start 11/19/16 at 20:45; Stop 11/19/16 at 21:44; Status DC Famotidine (Pepcid) 40 mg 1X ONCE IVP Last administered on 11/19/16 21:54; Start 11/19/16 at 21:30; Stop 11/19/16 at 21:31; Status DC Ondansetron HCl (Zofran) 4 mg PRN Q8HRS PRN IV NAUSEA/VOMITING Last administered on 11/19/16 21:54; Start 11/19/16 at 21:45; Stop 11/20/16 at 10:44 ; Status DC Morphine Sulfate 2 mg PRN Q2HR PRN IV PAIN; Start 11/19/16 at 21:45; Stop 11/20 at 21:44; Status DC Sodium Chloride 1,000 ml @ 110 mls/hr Q9H6M IV Last administered on 11/20/16 17:53; Start 11/19/16 at 21:41; Stop 11/20/16 at 21:40; Status DC Ondansetron HCl (Zofran) 4 mg PRN Q6HRS PRN IV NAUSEA/VOMITING; Start 11/20/16 at 10:42; Stop 11/21/16 at 10:41; Status DC Famotidine (Pepcid) 20 mg BID IVP Last administered on 11/21/16t 21:38; Start 11/20/16 at 11:00 Atorvastatin Calcium (Lipitor) 10 mg QHS PO ; Start 11/20/16 at 21:00 Dutasteride (Avodart) 0.5 mg DAILY PO ; Start 11/20/16 at 11:00 Labetalol HCl (Normodyne) 10 mg PRN Q2HR PRN IVP HYPERTENSION, SEE COMMENTS; Start 11/20/16 at 10:45 Acetaminophen (Tylenol) 500 mg PRN Q6HRS PRN PO MILD PAIN / TEMP; Start at 10:45 Ondansetron HCl (Zofran) 4 mg PRN Q6HRS PRN IV NAUSEA/VOMITING; Start 11/21/16 at 07:00; Stop 11/22/16 at 06:59; Status DC Fentanyl Citrate (Fentanyl 2ml Vial) 25 mcg PRN Q5MIN PRN IV MILD PAIN; Start 11/21/16 at 07:00; Stop 11/22/16 at 06:59; Status DC Fentanyl Citrate (Fentanyl 2ml Vial) 50 mcg PRN Q5MIN PRN IV MODERATE PAIN; Start 11/21/16 at 07:00; Stop 11/22/16 at 06:59; Status DC Morphine Sulfate 1 mg PRN Q10MIN PRN IV SEVERE PAIN; Start 11/21/16 at 07:00; Stop 11/22/16 at 06:59; Status DC Ringer's Solution 1,000 ml @ 30 mls/hr Q24H IV ; Start 11/21/16 at 07:00; Stop 11/21/16 at 18:59; Status DC Lidocaine HCl 2 ml PRN 1X PRN ID PRIOR TO IV START; Start 11/21/16 at 07:00; Stop 11/22/16 at 06:59; Status DC Hydromorphone HCl (Dilaudid) 0.5 mg PRN Q10MIN PRN IV SEV PAIN, Second choice; Start 11/21/16 at 07:00; Stop 11/22/16 at 06:59; Status DC Prochlorperazine Edisylate (Compazine) 5 mg PACU PRN PRN IV NAUSEA, MRX1; Start 11/21/16 at 07:00; Stop 11/22/16 at 06:59; Status DC Hydralazine HCl (Apresoline) 10 mg PRN Q4HRS PRN IVP ELEVATED BP, SEE COMMENTS ; Start 11/20/16 at 15:30 Propofol 20 ml @ As Directed STK-MED ONCE IV ; Start 11/21/16 at 07:20; Stop at 07:21; Status DC Lidocaine HCl (Lidocaine Pf 2% Vial) 5 ml STK-MED ONCE .ROUTE ; Start 11/21/16 at 07:20; Stop 11/21/16 at 07:21; Status DC Ondansetron HCl (Zofran) 4 mg STK-MED ONCE .ROUTE ; Start 11/21/16 at 07:20; Stop 11/21/16 at 07:21; Status DC Dexamethasone Sodium Phosphate (Decadron) 20 mg STK-MED ONCE .ROUTE ; Start at 07:20; Stop 11/21/16 at 07:21; Status DC Phenylephrine HCl 1 mg STK-MED ONCE IV ; Start 11/21/16 at 07:21; Stop 11/21/16 at 07:22; Status DC Ephedrine Sulfate 50 mg STK-MED ONCE IV ; Start 11/21/16 at 07:21; Stop at 07:22; Status DC Fentanyl Citrate (Fentanyl 5ml Vial) 250 mcg STK-MED ONCE .ROUTE ; Start at 07:21; Stop 11/21/16 at 07:22; Status DC Rocuronium Sledge (Zemuron) 50 mg STK-MED ONCE .ROUTE ; Start 11/21/16 at 07:22 ; Stop 11/21/16 at 07:23; Status DC Famotidine (Pepcid) 20 mg STK-MED ONCE .ROUTE ; Start 11/21/16 at 07:23; Stop at 07:24; Status DC Cellulose 1 each STK-MED ONCE .ROUTE Last administered on 11/21/16t 10:29; Start 11/21/16 at 07:33; Stop 11/21/16 at 07:34; Status DC Bupivacaine HCl/ Epinephrine Bitart (Marcaine-Epi 0.5%-[id number]) 50 ml STK-MED ONCE .ROUTE Last administered on 11/21/16t 08:43; Start 11/21/16 at 07:34; Stop 11/21/16 at 07:35; Status DC Cefazolin Sodium/ Dextrose 50 ml @ 100 mls/hr 1X PREOP ONCE IV Last administered on 11/21/16 08:25; Start 11/21/16 at 07:37; Stop 11/21/16 at 08:06 ; Status DC Succinylcholine Chloride (Anectine) 200 mg STK-MED ONCE .ROUTE ; Start 11/21/16 at 07:59; Stop 11/21/16 at 08:00; Status DC Sevoflurane (Ultane) 90 ml STK-MED ONCE IH ; Start 11/21/16 at 09:24; Stop 11/21 at 09:25; Status DC Rocuronium Sledge (Zemuron) 50 mg STK-MED ONCE .ROUTE ; Start 11/21/16 at 09:25 ; Stop 11/21/16 at 09:26; Status DC Cellulose 1 each STK-MED ONCE .ROUTE ; Start 11/21/16 at 10:11; Stop 11/21/16 at 10:12; Status DC Sodium Bicarbonate 50 meq STK-MED ONCE .ROUTE ; Start 11/21/16 at 10:34; Stop at 10:35; Status DC Rocuronium Sledge (Zemuron) 50 mg STK-MED ONCE .ROUTE ; Start 11/21/16 at 11:00 ; Stop 11/21/16 at 11:01; Status DC Sevoflurane (Ultane) 90 ml STK-MED ONCE IH ; Start 11/21/16 at 12:46; Stop 11/21 at 12:47; Status DC Piperacillin Sod/ Tazobactam Sod 3.375 gm/Sodium Chloride 50 ml @ 100 mls/hr Q6HRS IV Last administered on 11/22/16 06:14; Start 11/21/16 at 14:00 Fentanyl Citrate (Fentanyl 2ml Vial) 25 mcg PRN Q2HR PRN IV PAIN Last administered on 11/21/16 17:42; Start 11/21/16 at 13:30 Fentanyl Citrate (Fentanyl 2ml Vial) 50 mcg PRN Q2HR PRN IV PAIN; Start at 13:30 Propofol 100 ml @ 0 mls/hr CONT PRN IV PER PROTOCOL Last administered on 21:39; Start 11/21/16 at 13:30 Fentanyl Citrate (Fentanyl 2ml Vial) 25 mcg PRN Q1HR PRN IV COMM; Start at 13:30 Fentanyl Citrate (Fentanyl 2ml Vial) 50 mcg PRN Q1HR PRN IV COMM; Start at 13:30 Chlorhexidine Gluconate (Peridex) 15 ml BID MM Last administered on 11/21/16 21:38; Start 11/21/16 at 21:00 Potassium Chloride/Dextrose/ Sod Cl 1,000 ml @ 100 mls/hr Q10H IV Last administered on 11/22/16 02:24; Start 11/21/16 at 15:00 Active Scripts Active Reported Aspir 81 (Aspirin) 81 Mg Tablet.dr 81 Mg PO DAILY Atorvastatin Calcium 10 Mg Tablet 1 Tab PO DAILY Aspirin 81 Mg Tab.chew 1 Tab PO DAILY Avodart (Dutasteride) 0.5 Mg Capsule 1 Cap PO DAILY Vitals/I & O Vital Sign - Last 24 Hours 11/21/16 11/21/16 11/21/16 11/21/16 13:30 13:30 15:06 15:33 Pulse 80 Resp 21 B/P (MAP) 123/65 (84) Pulse Ox 100 99 98 O2 Delivery Ventilator Mechanical Ventilator Ventilator Ventilator 11/21/16 11/21/16 11/21/16 11/21/16 16:10 16:25 17:00 17:42 Temp 96.8 96.8 Pulse 74 70 Resp 22 22 B/P (MAP) 100/57 (71) 93/51 (65) Pulse Ox 97 97 97 O2 Delivery Mechanical Ventilator Ventilator Ventilator Ventilator O2 Flow Rate 2.0 11/21/16 11/21/16 11/21/16 11/21/16 18:21 18:25 18:27 19:00 Pulse 67 68 Resp 22 23 B/P (MAP) 90/48 (62) 104/52 (69) Pulse Ox 97 98 97 96 O2 Delivery Ventilator Ventilator Ventilator Ventilator O2 Flow Rate 2.0 11/21/16 11/21/16 11/21/16 11/21/16 19:55 20:00 20:00 21:00 Temp 98.8 98.8 Pulse 68 68 Resp 27 20 B/P (MAP) 96/54 (68) 124/58 (80) 100/50 (67) Pulse Ox 98 100 98 O2 Delivery Ventilator Mechanical Ventilator Ventilator Ventilator 11/21/16 11/21/16 11/21/16 11/22/16 22:00 22:39 23:00 00:00 Pulse 68 70 Resp 23 24 B/P (MAP) 110/54 (72) 122/58 (79) Pulse Ox 100 99 97 O2 Delivery Ventilator Ventilator Ventilator Mechanical Ventilator 11/22/16 11/22/16 11/22/16 11/22/16 00:00 01:00 01:12 02:00 Temp 99.7 99.7 Pulse 82 80 72 Resp 20 20 22 B/P (MAP) 102/56 (71) 112/98 (103) 99/50 (66) Pulse Ox 100 99 99 100 O2 Delivery Ventilator Ventilator Ventilator Ventilator 11/22/16 11/22/16 11/22/16 11/22/16 03:00 03:26 04:06 04:08 Temp 99.0 99.0 Pulse 69 69 Resp 20 20 B/P (MAP) 100/53 (69) 94/52 (66) Pulse Ox 99 99 99 O2 Delivery Ventilator Ventilator Mechanical Ventilator Ventilator 11/22/16 11/22/16 11/22/16 11/22/16 05:00 05:01 06:00 07:00 Pulse 66 74 72 Resp 22 20 20 B/P (MAP) 96/48 (64) 118/60 (79) 102/56 (71) Pulse Ox 99 99 100 99 O2 Delivery Ventilator Ventilator Ventilator Ventilator 11/22/16 11/22/16 11/22/16 07:21 08:00 08:00 Temp 99.2 99.2 Pulse 78 Resp 24 B/P (MAP) 135/68 (90) Pulse Ox 99 100 O2 Delivery Ventilator Mechanical Ventilator Ventilator Intake and Output 11/21/16 11/21/16 11/22/16 14:59 22:59 06:59 Intake Total 665 ml 1363 ml Output Total 396 ml 340 ml Balance 269 ml 1023 ml SYDNEE MCCRACKEN MD Nov 22, 2016 08:51
[2016-11-22 09:13] LABS: BASO % 0 % (0-3); EOS % 0 % (0-3); HEMOGLOBIN 9.7 g/dL (13.0-17.5); LYMPH # 0.3 x10^3/uL (1.0-4.8); LYMPH % 2 % (24-48); MEAN CORPUSCULAR HEMOGLOBIN 34 pg (25-35); MEAN CORPUSCULAR HGB CONC 35 g/dL (31-37); MEAN CORPUSCULAR VOLUME 99 fL (79-100); MONO % 6 % (0-9); NEUT % 91 % (31-73); PLATELET COUNT 112 x10^3/uL (140-400); RED BLOOD COUNT 2.83 x10^6/uL (4.30-5.70); RED CELL DISTRIBUTION WIDTH 13.1 % (11.5-14.5); WHITE BLOOD COUNT 12.9 x10^3/uL (4.0-11.0)
[2016-11-22] MEDS: FAMOTIDINE 20 MG/2 ML VIAL IVP SCH ×2 (09:32→20:48)
[2016-11-22] MEDS: PROPOFOL 100 ML IV PRN ×2 (09:34→21:50)
[2016-11-22] MEDS: CHLORHEXIDINE 0.12% 15 ML MOUTHWASH. MM SCH ×2 (09:35→20:48)
--- NOTE | 2016-11-22 12:20 | RAD ---
Indication respiratory failure. A single view of the chest was obtained and is compared to a study one day earlier. Heart size is unchanged. Bilateral pleural effusions persist as does volume loss in the left lower lobe. These findings are similar. Changes of congestive heart failure persist but have probably improved slightly. A new finding in the chest is not seen. Bipolar cardiac pacing device is noted. Endotracheal tube is appropriately positioned above the mala. 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 IMPRESSION: Minimal improvement. No new finding seen
--- NOTE | 2016-11-22 12:45 | PDOC ---
G I PROGRESS NOTE Subjective Sedated, on ventilator. Physical Exam Lungs clear anteriorly. RRR Abdomen soft. G-tube. Review of Relevant I have reviewed the following items cordell (where applicable) has been applied. Labs Laboratory Tests Test 11/20/16 18:00 11/21/16 03:30 11/21/16 09:20 11/21/16 10:25 Troponin I Quantitative 0.030 ng/mL (0.000-0.055) White Blood Count 10.5 x10^3/uL (4.0-11.0) Red Blood Count 3.27 x10^6/uL (4.30-5.70) Hemoglobin 11.3 g/dL (13.0-17.5) 10.1 g/dL (13.0-17.5) Hematocrit 32.6 % (39.0-53.0) 29.2 % (39.0-53.0) Mean Corpuscular Volume 100 fL (79-100) Mean Corpuscular Hemoglobin 34 pg (25-35) Mean Corpuscular Hemoglobin Concent 35 g/dL (31-37) Red Cell Distribution Width 13.4 % (11.5-14.5) Platelet Count 152 x10^3/uL (140-400) Neutrophils (%) (Auto) 79 % (31-73) Lymphocytes (%) (Auto) 5 % (24-48) Monocytes (%) (Auto) 17 % (0-9) Eosinophils (%) (Auto) 0 % (0-3) Basophils (%) (Auto) 0 % (0-3) Neutrophils # (Auto) 8.3 x10^3uL (1.8-7.7) Lymphocytes # (Auto) 0.5 x10^3/uL (1.0-4.8) Monocytes # (Auto) 1.8 x10^3/uL (0.0-1.1) Eosinophils # (Auto) 0.0 x10^3/uL (0.0-0.7) Basophils # (Auto) 0.0 x10^3/uL (0.0-0.2) Lactic Acid Level 1.1 mmol/L (0.4-2.0) Iron Level 46 ug/dL (65-175) Total Iron Binding Capacity 179 ug/dL (250-450) Iron Saturation 26 % (15-34) Vitamin B12 Level 339 pg/mL (247-911) Serum Folate 9.15 ng/ml (3.2-20.0) Reticulocyte Count (auto) 0.8 % (0.5-2.5) Sodium Level 147 mmol/L (136-145) Potassium Level 3.6 mmol/L (3.5-5.1) Chloride Level 115 mmol/L (98-107) Carbon Dioxide Level 23 mmol/L (21-32) Anion Gap 9 (6-14) Blood Urea Nitrogen 50 mg/dL (8-26) Creatinine 0.8 mg/dL (0.7-1.3) Estimated GFR (Cockcroft-Gault) 91.9 Glucose Level 133 mg/dL (70-99) 139 mg/dL (70-99) Calcium Level 7.3 mg/dL (8.5-10.1) Ferritin 109 ng/mL (26-388) Lactate Dehydrogenase 195 U/L (85-227) Bedside Hemoglobin (Calculated) 10.5 g/dL (14-18) Bedside Hematocrit 31 % (37-52) Bedside Arterial pH 7.20 (7.35-7.45) Arterial Blood pH (Temp corrected) 7.22 Bedside Arterial pCO2 51 mmHg (35-45) Arterial Blood pCO2 (Temp correct) 48 mmHg Bedside Arterial pO2 89 mmHg (75-100) Arterial Blood pO2 (Temp corrected) 81 mmHg Bedside Arterial HCO3 20 mmol/L (21-28) Bedside Arterial Total CO2 22 mmol/L (21-32) Arterial Bld O2 Saturation (Measur) 94 % (95-99) Bedside Arterial Blood Base Excess -8 mmol/L (0-3) Bedside FiO2 100.0 Bedside Sodium 146 mmol/L (135-145) Bedside Potassium 3.4 mmol/L (3.5-5.0) Bedside Ionized Calcium (Dalia) 1.25 mmol/L (1.13-1.32) Test 11/21/16 12:17 11/21/16 14:05 11/22/16 08:00 11/22/16 09:00 Bedside Hemoglobin (Calculated) 10.5 g/dL (14-18) Bedside Hematocrit 31 % (37-52) Bedside Arterial pH 7.31 (7.35-7.45) Arterial Blood pH (Temp corrected) 7.34 Bedside Arterial pCO2 38 mmHg (35-45) Arterial Blood pCO2 (Temp correct) 35 mmHg Bedside Arterial pO2 138 mmHg (75-100) Arterial Blood pO2 (Temp corrected) 127 mmHg Bedside Arterial HCO3 19 mmol/L (21-28) Bedside Arterial Total CO2 20 mmol/L (21-32) Arterial Bld O2 Saturation (Measur) 99 % (95-99) Bedside Arterial Blood Base Excess -7 mmol/L (0-3) Bedside FiO2 100.0 Bedside Sodium 147 mmol/L (135-145) Bedside Potassium 3.1 mmol/L (3.5-5.0) Glucose Level 117 mg/dL (70-99) Bedside Ionized Calcium (Dalia) 1.20 mmol/L (1.13-1.32) O2 Saturation 98 % (92-99) 97 % (92-99) Arterial Blood pH 7.34 (7.35-7.45) 7.46 (7.35-7.45) Arterial Blood pCO2 at Patient Temp 42 mmHg (35-46) 31 mmHg (35-46) Arterial Blood pO2 at Patient Temp 111 mmHg (65-108) 92 mmHg (65-108) Arterial Blood HCO3 22 mmol/L (21-28) 22 mmol/L (21-28) Arterial Blood Base Excess -4 mmol/L (-3-3) -1 mmol/L (-3-3) Oxyhemoglobin 97.1 % Methemoglobin 0.2 % (0.0-1.9) Carbon Monoxide, Quantitative 0.2 % (0.0-1.9) FiO2 100 50 White Blood Count 12.9 x10^3/uL (4.0-11.0) Red Blood Count 2.83 x10^6/uL (4.30-5.70) Hemoglobin 9.7 g/dL (13.0-17.5) Hematocrit 28.0 % (39.0-53.0) Mean Corpuscular Volume 99 fL (79-100) Mean Corpuscular Hemoglobin 34 pg (25-35) Mean Corpuscular Hemoglobin Concent 35 g/dL (31-37) Red Cell Distribution Width 13.1 % (11.5-14.5) Platelet Count 112 x10^3/uL (140-400) Neutrophils (%) (Auto) 91 % (31-73) Lymphocytes (%) (Auto) 2 % (24-48) Monocytes (%) (Auto) 6 % (0-9) Eosinophils (%) (Auto) 0 % (0-3) Basophils (%) (Auto) 0 % (0-3) Neutrophils # (Auto) 11.8 x10^3uL (1.8-7.7) Lymphocytes # (Auto) 0.3 x10^3/uL (1.0-4.8) Monocytes # (Auto) 0.8 x10^3/uL (0.0-1.1) Eosinophils # (Auto) 0.0 x10^3/uL (0.0-0.7) Basophils # (Auto) 0.0 x10^3/uL (0.0-0.2) Laboratory Tests Test 11/21/16 14:05 11/22/16 08:00 11/22/16 09:00 O2 Saturation 98 % (92-99) 97 % (92-99) Arterial Blood pH 7.34 (7.35-7.45) 7.46 (7.35-7.45) Arterial Blood pCO2 at Patient Temp 42 mmHg (35-46) 31 mmHg (35-46) Arterial Blood pO2 at Patient Temp 111 mmHg (65-108) 92 mmHg (65-108) Arterial Blood HCO3 22 mmol/L (21-28) 22 mmol/L (21-28) Arterial Blood Base Excess -4 mmol/L (-3-3) -1 mmol/L (-3-3) Oxyhemoglobin 97.1 % Methemoglobin 0.2 % (0.0-1.9) Carbon Monoxide, Quantitative 0.2 % (0.0-1.9) FiO2 100 50 White Blood Count 12.9 x10^3/uL (4.0-11.0) Red Blood Count 2.83 x10^6/uL (4.30-5.70) Hemoglobin 9.7 g/dL (13.0-17.5) Hematocrit 28.0 % (39.0-53.0) Mean Corpuscular Volume 99 fL (79-100) Mean Corpuscular Hemoglobin 34 pg (25-35) Mean Corpuscular Hemoglobin Concent 35 g/dL (31-37) Red Cell Distribution Width 13.1 % (11.5-14.5) Platelet Count 112 x10^3/uL (140-400) Neutrophils (%) (Auto) 91 % (31-73) Lymphocytes (%) (Auto) 2 % (24-48) Monocytes (%) (Auto) 6 % (0-9) Eosinophils (%) (Auto) 0 % (0-3) Basophils (%) (Auto) 0 % (0-3) Neutrophils # (Auto) 11.8 x10^3uL (1.8-7.7) Lymphocytes # (Auto) 0.3 x10^3/uL (1.0-4.8) Monocytes # (Auto) 0.8 x10^3/uL (0.0-1.1) Eosinophils # (Auto) 0.0 x10^3/uL (0.0-0.7) Basophils # (Auto) 0.0 x10^3/uL (0.0-0.2) Medications Current Medications Sodium Chloride 1,000 ml @ 1,000 mls/hr 1X ONCE IV Last administered on 20:55; Start 11/19/16 at 20:45; Stop 11/19/16 at 21:44; Status DC Famotidine (Pepcid) 40 mg 1X ONCE IVP Last administered on 11/19/16 21:54; Start 11/19/16 at 21:30; Stop 11/19/16 at 21:31; Status DC Ondansetron HCl (Zofran) 4 mg PRN Q8HRS PRN IV NAUSEA/VOMITING Last administered on 11/19/16 21:54; Start 11/19/16 at 21:45; Stop 11/20/16 at 10:44 ; Status DC Morphine Sulfate 2 mg PRN Q2HR PRN IV PAIN; Start 11/19/16 at 21:45; Stop 11/20 at 21:44; Status DC Sodium Chloride 1,000 ml @ 110 mls/hr Q9H6M IV Last administered on 11/20/16 17:53; Start 11/19/16 at 21:41; Stop 11/20/16 at 21:40; Status DC Ondansetron HCl (Zofran) 4 mg PRN Q6HRS PRN IV NAUSEA/VOMITING; Start 11/20/16 at 10:42; Stop 11/21/16 at 10:41; Status DC Famotidine (Pepcid) 20 mg BID IVP Last administered on 11/22/16t 09:32; Start 11/20/16 at 11:00 Atorvastatin Calcium (Lipitor) 10 mg QHS PO ; Start 11/20/16 at 21:00 Dutasteride (Avodart) 0.5 mg DAILY PO ; Start 11/20/16 at 11:00 Labetalol HCl (Normodyne) 10 mg PRN Q2HR PRN IVP HYPERTENSION, SEE COMMENTS; Start 11/20/16 at 10:45 Acetaminophen (Tylenol) 500 mg PRN Q6HRS PRN PO MILD PAIN / TEMP; Start at 10:45 Ondansetron HCl (Zofran) 4 mg PRN Q6HRS PRN IV NAUSEA/VOMITING; Start 11/21/16 at 07:00; Stop 11/22/16 at 06:59; Status DC Fentanyl Citrate (Fentanyl 2ml Vial) 25 mcg PRN Q5MIN PRN IV MILD PAIN; Start 11/21/16 at 07:00; Stop 11/22/16 at 06:59; Status DC Fentanyl Citrate (Fentanyl 2ml Vial) 50 mcg PRN Q5MIN PRN IV MODERATE PAIN; Start 11/21/16 at 07:00; Stop 11/22/16 at 06:59; Status DC Morphine Sulfate 1 mg PRN Q10MIN PRN IV SEVERE PAIN; Start 11/21/16 at 07:00; Stop 11/22/16 at 06:59; Status DC Ringer's Solution 1,000 ml @ 30 mls/hr Q24H IV ; Start 11/21/16 at 07:00; Stop 11/21/16 at 18:59; Status DC Lidocaine HCl 2 ml PRN 1X PRN ID PRIOR TO IV START; Start 11/21/16 at 07:00; Stop 11/22/16 at 06:59; Status DC Hydromorphone HCl (Dilaudid) 0.5 mg PRN Q10MIN PRN IV SEV PAIN, Second choice; Start 11/21/16 at 07:00; Stop 11/22/16 at 06:59; Status DC Prochlorperazine Edisylate (Compazine) 5 mg PACU PRN PRN IV NAUSEA, MRX1; Start 11/21/16 at 07:00; Stop 11/22/16 at 06:59; Status DC Hydralazine HCl (Apresoline) 10 mg PRN Q4HRS PRN IVP ELEVATED BP, SEE COMMENTS ; Start 11/20/16 at 15:30 Propofol 20 ml @ As Directed STK-MED ONCE IV ; Start 11/21/16 at 07:20; Stop at 07:21; Status DC Lidocaine HCl (Lidocaine Pf 2% Vial) 5 ml STK-MED ONCE .ROUTE ; Start 11/21/16 at 07:20; Stop 11/21/16 at 07:21; Status DC Ondansetron HCl (Zofran) 4 mg STK-MED ONCE .ROUTE ; Start 11/21/16 at 07:20; Stop 11/21/16 at 07:21; Status DC Dexamethasone Sodium Phosphate (Decadron) 20 mg STK-MED ONCE .ROUTE ; Start at 07:20; Stop 11/21/16 at 07:21; Status DC Phenylephrine HCl 1 mg STK-MED ONCE IV ; Start 11/21/16 at 07:21; Stop 11/21/16 at 07:22; Status DC Ephedrine Sulfate 50 mg STK-MED ONCE IV ; Start 11/21/16 at 07:21; Stop at 07:22; Status DC Fentanyl Citrate (Fentanyl 5ml Vial) 250 mcg STK-MED ONCE .ROUTE ; Start at 07:21; Stop 11/21/16 at 07:22; Status DC Rocuronium [place] (Zemuron) 50 mg STK-MED ONCE .ROUTE ; Start 11/21/16 at 07:22 ; Stop 11/21/16 at 07:23; Status DC Famotidine (Pepcid) 20 mg STK-MED ONCE .ROUTE ; Start 11/21/16 at 07:23; Stop at 07:24; Status DC Cellulose 1 each STK-MED ONCE .ROUTE Last administered on 11/21/16t 10:29; Start 11/21/16 at 07:33; Stop 11/21/16 at 07:34; Status DC Bupivacaine HCl/ Epinephrine Bitart (Marcaine-Epi 0.5%-[id number]) 50 ml STK-MED ONCE .ROUTE Last administered on 11/21/16 08:43; Start 11/21/16 at 07:34; Stop 11/21/16 at 07:35; Status DC Cefazolin Sodium/ Dextrose 50 ml @ 100 mls/hr 1X PREOP ONCE IV Last administered on 11/21/16 08:25; Start 11/21/16 at 07:37; Stop 11/21/16 at 08:06 ; Status DC Succinylcholine Chloride (Anectine) 200 mg STK-MED ONCE .ROUTE ; Start 11/21/16 at 07:59; Stop 11/21/16 at 08:00; Status DC Sevoflurane (Ultane) 90 ml STK-MED ONCE IH ; Start 11/21/16 at 09:24; Stop 11/21 at 09:25; Status DC Rocuronium [place] (Zemuron) 50 mg STK-MED ONCE .ROUTE ; Start 11/21/16 at 09:25 ; Stop 11/21/16 at 09:26; Status DC Cellulose 1 each STK-MED ONCE .ROUTE ; Start 11/21/16 at 10:11; Stop 11/21/16 at 10:12; Status DC Sodium Bicarbonate 50 meq STK-MED ONCE .ROUTE ; Start 11/21/16 at 10:34; Stop at 10:35; Status DC Rocuronium [place] (Zemuron) 50 mg STK-MED ONCE .ROUTE ; Start 11/21/16 at 11:00 ; Stop 11/21/16 at 11:01; Status DC Sevoflurane (Ultane) 90 ml STK-MED ONCE IH ; Start 11/21/16 at 12:46; Stop 11/21 at 12:47; Status DC Piperacillin Sod/ Tazobactam Sod 3.375 gm/Sodium Chloride 50 ml @ 100 mls/hr Q6HRS IV Last administered on 11/22/16 12:18; Start 11/21/16 at 14:00 Fentanyl Citrate (Fentanyl 2ml Vial) 25 mcg PRN Q2HR PRN IV PAIN Last administered on 11/21/16 17:42; Start 11/21/16 at 13:30 Fentanyl Citrate (Fentanyl 2ml Vial) 50 mcg PRN Q2HR PRN IV PAIN; Start at 13:30 Propofol 100 ml @ 0 mls/hr CONT PRN IV PER PROTOCOL Last administered on 09:34; Start 11/21/16 at 13:30 Fentanyl Citrate (Fentanyl 2ml Vial) 25 mcg PRN Q1HR PRN IV COMM; Start at 13:30 Fentanyl Citrate (Fentanyl 2ml Vial) 50 mcg PRN Q1HR PRN IV COMM; Start at 13:30 Chlorhexidine Gluconate (Peridex) 15 ml BID MM Last administered on 11/22/16 09:35; Start 11/21/16 at 21:00 Potassium Chloride/Dextrose/ Sod Cl 1,000 ml @ 100 mls/hr Q10H IV Last administered on 11/22/16 02:24; Start 11/21/16 at 15:00 Active Scripts Active Reported Aspir 81 (Aspirin) 81 Mg Tablet.dr 81 Mg PO DAILY Atorvastatin Calcium 10 Mg Tablet 1 Tab PO DAILY Aspirin 81 Mg Tab.chew 1 Tab PO DAILY Avodart (Dutasteride) 0.5 Mg Capsule 1 Cap PO DAILY Vitals/I & O Vital Sign - Last 24 Hours 11/21/16 11/21/16 11/21/16 11/21/16 13:30 13:30 15:06 15:33 Pulse 80 Resp 21 B/P (MAP) 123/65 (84) Pulse Ox 100 99 98 O2 Delivery Ventilator Mechanical Ventilator Ventilator Ventilator 11/21/16 11/21/16 11/21/16 11/21/16 16:10 16:25 17:00 17:42 Temp 96.8 96.8 Pulse 74 70 Resp 22 22 B/P (MAP) 100/57 (71) 93/51 (65) Pulse Ox 97 97 97 O2 Delivery Mechanical Ventilator Ventilator Ventilator Ventilator O2 Flow Rate 2.0 11/21/16 11/21/16 11/21/16 11/21/16 18:21 18:25 18:27 19:00 Pulse 67 68 Resp 22 23 B/P (MAP) 90/48 (62) 104/52 (69) Pulse Ox 97 98 97 96 O2 Delivery Ventilator Ventilator Ventilator Ventilator O2 Flow Rate 2.0 11/21/16 11/21/16 11/21/16 11/21/16 19:55 20:00 20:00 21:00 Temp 98.8 98.8 Pulse 68 68 Resp 27 20 B/P (MAP) 96/54 (68) 124/58 (80) 100/50 (67) Pulse Ox 98 100 98 O2 Delivery Ventilator Mechanical Ventilator Ventilator Ventilator 11/21/16 11/21/16 11/21/16 11/22/16 22:00 22:39 23:00 00:00 Pulse 68 70 Resp 23 24 B/P (MAP) 110/54 (72) 122/58 (79) Pulse Ox 100 99 97 O2 Delivery Ventilator Ventilator Ventilator Mechanical Ventilator 11/22/16 11/22/16 11/22/16 11/22/16 00:00 01:00 01:12 02:00 Temp 99.7 99.7 Pulse 82 80 72 Resp 20 20 22 B/P (MAP) 102/56 (71) 112/98 (103) 99/50 (66) Pulse Ox 100 99 99 100 O2 Delivery Ventilator Ventilator Ventilator Ventilator 11/22/16 11/22/16 11/22/16 11/22/16 03:00 03:26 04:06 04:08 Temp 99.0 99.0 Pulse 69 69 Resp 20 20 B/P (MAP) 100/53 (69) 94/52 (66) Pulse Ox 99 99 99 O2 Delivery Ventilator Ventilator Mechanical Ventilator Ventilator 11/22/16 11/22/16 11/22/16 11/22/16 05:00 05:01 06:00 07:00 Pulse 66 74 72 Resp 22 20 20 B/P (MAP) 96/48 (64) 118/60 (79) 102/56 (71) Pulse Ox 99 99 100 99 O2 Delivery Ventilator Ventilator Ventilator Ventilator 11/22/16 11/22/16 11/22/16 11/22/16 07:21 08:00 08:00 09:00 Temp 99.2 99.2 Pulse 78 78 Resp 24 20 B/P (MAP) 135/68 (90) 133/64 (87) Pulse Ox 99 100 O2 Delivery Ventilator Mechanical Ventilator Ventilator Ventilator 11/22/16 11/22/16 11/22/16 11/22/16 09:03 10:00 11:00 11:29 Pulse 72 72 Resp 22 22 B/P (MAP) 119/56 (77) 102/52 (69) Pulse Ox 99 98 O2 Delivery Ventilator Ventilator Ventilator Ventilator 11/22/16 11/22/16 12:00 12:00 Temp 99.1 99.1 Pulse 71 Resp 20 B/P (MAP) 100/53 (69) O2 Delivery Ventilator Mechanical Ventilator Intake and Output 11/21/16 11/21/16 11/22/16 15:00 23:00 07:00 Intake Total 665 ml 1363 ml Output Total 451 ml 285 ml Balance 214 ml 1078 ml Problem List Problems Medical Problems: (1) Upper GI bleeding Status: Acute Assessment Atypical paraesophageal hernia, 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 Likely aspirated pre-op. Plan of Care: Continue current Tx, Mgmt Plan of Care Note Will follow. WILBERTO ROBERTS MD Nov 22, 2016 12:44
--- NOTE | 2016-11-22 13:04 | PDOC ---
PROGRESS NOTES Chief Complaint Chief Complaint hematemesis ASSESSMENT AND PLAN: 1. UGIB: s/p Laparoscopic repair of large paraesophageal hernia, open partial gastrectomy, placement of gastrostomy with gastropexy, nutrition as per general surgery. 2. Acute respiratory failure: On mechanical ventilation, possible aspiration. Continue Zosyn, Continue current the sedation, pulmonology has been following the patient, labs and chest x-ray reviewed, discussed with the patient's daughter at bedside, current plan and management explained, all questions answered, 3. Leukocytosis: reactive, 4. Arrhythmia: hx pacer placement 5. Prophylaxis: SCDs; medical anticoag contraindicated, mild thrombocytopenia 6. 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 Monitor History of Present Illness History of Present Illness Discussed with daughter nontender discussed with the patient's daughter and family members at bedside No new complaints Vitals Vitals Vital Signs Date Time Temp Pulse Resp B/P (MAP) Pulse Ox O2 Delivery O2 Flow Rate FiO2 11/22/16 12:00 Mechanical Ventilator 11/22/16 12:00 99.1 71 20 100/53 (69) 99.1 11/22/16 11:29 98 11/21/16 18:21 2.0 Physical Exam General: Other (SEDATED and intubated) Heart: Regular rate, Normal S1, Normal S2 Lungs: Clear Abdomen: Soft (Gtube with some output) Extremities: No clubbing, No cyanosis Skin: No rashes, No breakdown Labs LABS Laboratory Tests Test 11/21/16 14:05 11/22/16 08:00 11/22/16 09:00 O2 Saturation 98 % (92-99) 97 % (92-99) Arterial Blood pH 7.34 (7.35-7.45) 7.46 (7.35-7.45) Arterial Blood pCO2 at Patient Temp 42 mmHg (35-46) 31 mmHg (35-46) Arterial Blood pO2 at Patient Temp 111 mmHg (65-108) 92 mmHg (65-108) Arterial Blood HCO3 22 mmol/L (21-28) 22 mmol/L (21-28) Arterial Blood Base Excess -4 mmol/L (-3-3) -1 mmol/L (-3-3) Oxyhemoglobin 97.1 % Methemoglobin 0.2 % (0.0-1.9) Carbon Monoxide, Quantitative 0.2 % (0.0-1.9) FiO2 100 50 White Blood Count 12.9 x10^3/uL (4.0-11.0) Red Blood Count 2.83 x10^6/uL (4.30-5.70) Hemoglobin 9.7 g/dL (13.0-17.5) Hematocrit 28.0 % (39.0-53.0) Mean Corpuscular Volume 99 fL (79-100) Mean Corpuscular Hemoglobin 34 pg (25-35) Mean Corpuscular Hemoglobin Concent 35 g/dL (31-37) Red Cell Distribution Width 13.1 % (11.5-14.5) Platelet Count 112 x10^3/uL (140-400) Neutrophils (%) (Auto) 91 % (31-73) Lymphocytes (%) (Auto) 2 % (24-48) Monocytes (%) (Auto) 6 % (0-9) Eosinophils (%) (Auto) 0 % (0-3) Basophils (%) (Auto) 0 % (0-3) Neutrophils # (Auto) 11.8 x10^3uL (1.8-7.7) Lymphocytes # (Auto) 0.3 x10^3/uL (1.0-4.8) Monocytes # (Auto) 0.8 x10^3/uL (0.0-1.1) Eosinophils # (Auto) 0.0 x10^3/uL (0.0-0.7) Basophils # (Auto) 0.0 x10^3/uL (0.0-0.2) Assessment and Plan Assessmemt and Plan Problems Medical Problems: (1) Upper GI bleeding Status: Acute Problems: Comment Review of Relevant I have reviewed the following items cordell (where applicable) has been applied. Labs Laboratory Tests Test 11/20/16 18:00 11/21/16 03:30 11/21/16 09:20 11/21/16 10:25 Troponin I Quantitative 0.030 ng/mL (0.000-0.055) White Blood Count 10.5 x10^3/uL (4.0-11.0) Red Blood Count 3.27 x10^6/uL (4.30-5.70) Hemoglobin 11.3 g/dL (13.0-17.5) 10.1 g/dL (13.0-17.5) Hematocrit 32.6 % (39.0-53.0) 29.2 % (39.0-53.0) Mean Corpuscular Volume 100 fL (79-100) Mean Corpuscular Hemoglobin 34 pg (25-35) Mean Corpuscular Hemoglobin Concent 35 g/dL (31-37) Red Cell Distribution Width 13.4 % (11.5-14.5) Platelet Count 152 x10^3/uL (140-400) Neutrophils (%) (Auto) 79 % (31-73) Lymphocytes (%) (Auto) 5 % (24-48) Monocytes (%) (Auto) 17 % (0-9) Eosinophils (%) (Auto) 0 % (0-3) Basophils (%) (Auto) 0 % (0-3) Neutrophils # (Auto) 8.3 x10^3uL (1.8-7.7) Lymphocytes # (Auto) 0.5 x10^3/uL (1.0-4.8) Monocytes # (Auto) 1.8 x10^3/uL (0.0-1.1) Eosinophils # (Auto) 0.0 x10^3/uL (0.0-0.7) Basophils # (Auto) 0.0 x10^3/uL (0.0-0.2) Lactic Acid Level 1.1 mmol/L (0.4-2.0) Iron Level 46 ug/dL (65-175) Total Iron Binding Capacity 179 ug/dL (250-450) Iron Saturation 26 % (15-34) Vitamin B12 Level 339 pg/mL (247-911) Serum Folate 9.15 ng/ml (3.2-20.0) Reticulocyte Count (auto) 0.8 % (0.5-2.5) Sodium Level 147 mmol/L (136-145) Potassium Level 3.6 mmol/L (3.5-5.1) Chloride Level 115 mmol/L (98-107) Carbon Dioxide Level 23 mmol/L (21-32) Anion Gap 9 (6-14) Blood Urea Nitrogen 50 mg/dL (8-26) Creatinine 0.8 mg/dL (0.7-1.3) Estimated GFR (Cockcroft-Gault) 91.9 Glucose Level 133 mg/dL (70-99) 139 mg/dL (70-99) Calcium Level 7.3 mg/dL (8.5-10.1) Ferritin 109 ng/mL (26-388) Lactate Dehydrogenase 195 U/L (85-227) Bedside Hemoglobin (Calculated) 10.5 g/dL (14-18) Bedside Hematocrit 31 % (37-52) Bedside Arterial pH 7.20 (7.35-7.45) Arterial Blood pH (Temp corrected) 7.22 Bedside Arterial pCO2 51 mmHg (35-45) Arterial Blood pCO2 (Temp correct) 48 mmHg Bedside Arterial pO2 89 mmHg (75-100) Arterial Blood pO2 (Temp corrected) 81 mmHg Bedside Arterial HCO3 20 mmol/L (21-28) Bedside Arterial Total CO2 22 mmol/L (21-32) Arterial Bld O2 Saturation (Measur) 94 % (95-99) Bedside Arterial Blood Base Excess -8 mmol/L (0-3) Bedside FiO2 100.0 Bedside Sodium 146 mmol/L (135-145) Bedside Potassium 3.4 mmol/L (3.5-5.0) Bedside Ionized Calcium (Dalia) 1.25 mmol/L (1.13-1.32) Test 11/21/16 12:17 11/21/16 14:05 11/22/16 08:00 11/22/16 09:00 Bedside Hemoglobin (Calculated) 10.5 g/dL (14-18) Bedside Hematocrit 31 % (37-52) Bedside Arterial pH 7.31 (7.35-7.45) Arterial Blood pH (Temp corrected) 7.34 Bedside Arterial pCO2 38 mmHg (35-45) Arterial Blood pCO2 (Temp correct) 35 mmHg Bedside Arterial pO2 138 mmHg (75-100) Arterial Blood pO2 (Temp corrected) 127 mmHg Bedside Arterial HCO3 19 mmol/L (21-28) Bedside Arterial Total CO2 20 mmol/L (21-32) Arterial Bld O2 Saturation (Measur) 99 % (95-99) Bedside Arterial Blood Base Excess -7 mmol/L (0-3) Bedside FiO2 100.0 Bedside Sodium 147 mmol/L (135-145) Bedside Potassium 3.1 mmol/L (3.5-5.0) Glucose Level 117 mg/dL (70-99) Bedside Ionized Calcium (Dalia) 1.20 mmol/L (1.13-1.32) O2 Saturation 98 % (92-99) 97 % (92-99) Arterial Blood pH 7.34 (7.35-7.45) 7.46 (7.35-7.45) Arterial Blood pCO2 at Patient Temp 42 mmHg (35-46) 31 mmHg (35-46) Arterial Blood pO2 at Patient Temp 111 mmHg (65-108) 92 mmHg (65-108) Arterial Blood HCO3 22 mmol/L (21-28) 22 mmol/L (21-28) Arterial Blood Base Excess -4 mmol/L (-3-3) -1 mmol/L (-3-3) Oxyhemoglobin 97.1 % Methemoglobin 0.2 % (0.0-1.9) Carbon Monoxide, Quantitative 0.2 % (0.0-1.9) FiO2 100 50 White Blood Count 12.9 x10^3/uL (4.0-11.0) Red Blood Count 2.83 x10^6/uL (4.30-5.70) Hemoglobin 9.7 g/dL (13.0-17.5) Hematocrit 28.0 % (39.0-53.0) Mean Corpuscular Volume 99 fL (79-100) Mean Corpuscular Hemoglobin 34 pg (25-35) Mean Corpuscular Hemoglobin Concent 35 g/dL (31-37) Red Cell Distribution Width 13.1 % (11.5-14.5) Platelet Count 112 x10^3/uL (140-400) Neutrophils (%) (Auto) 91 % (31-73) Lymphocytes (%) (Auto) 2 % (24-48) Monocytes (%) (Auto) 6 % (0-9) Eosinophils (%) (Auto) 0 % (0-3) Basophils (%) (Auto) 0 % (0-3) Neutrophils # (Auto) 11.8 x10^3uL (1.8-7.7) Lymphocytes # (Auto) 0.3 x10^3/uL (1.0-4.8) Monocytes # (Auto) 0.8 x10^3/uL (0.0-1.1) Eosinophils # (Auto) 0.0 x10^3/uL (0.0-0.7) Basophils # (Auto) 0.0 x10^3/uL (0.0-0.2) Laboratory Tests Test 11/21/16 14:05 11/22/16 08:00 11/22/16 09:00 O2 Saturation 98 % (92-99) 97 % (92-99) Arterial Blood pH 7.34 (7.35-7.45) 7.46 (7.35-7.45) Arterial Blood pCO2 at Patient Temp 42 mmHg (35-46) 31 mmHg (35-46) Arterial Blood pO2 at Patient Temp 111 mmHg (65-108) 92 mmHg (65-108) Arterial Blood HCO3 22 mmol/L (21-28) 22 mmol/L (21-28) Arterial Blood Base Excess -4 mmol/L (-3-3) -1 mmol/L (-3-3) Oxyhemoglobin 97.1 % Methemoglobin 0.2 % (0.0-1.9) Carbon Monoxide, Quantitative 0.2 % (0.0-1.9) FiO2 100 50 White Blood Count 12.9 x10^3/uL (4.0-11.0) Red Blood Count 2.83 x10^6/uL (4.30-5.70) Hemoglobin 9.7 g/dL (13.0-17.5) Hematocrit 28.0 % (39.0-53.0) Mean Corpuscular Volume 99 fL (79-100) Mean Corpuscular Hemoglobin 34 pg (25-35) Mean Corpuscular Hemoglobin Concent 35 g/dL (31-37) Red Cell Distribution Width 13.1 % (11.5-14.5) Platelet Count 112 x10^3/uL (140-400) Neutrophils (%) (Auto) 91 % (31-73) Lymphocytes (%) (Auto) 2 % (24-48) Monocytes (%) (Auto) 6 % (0-9) Eosinophils (%) (Auto) 0 % (0-3) Basophils (%) (Auto) 0 % (0-3) Neutrophils # (Auto) 11.8 x10^3uL (1.8-7.7) Lymphocytes # (Auto) 0.3 x10^3/uL (1.0-4.8) Monocytes # (Auto) 0.8 x10^3/uL (0.0-1.1) Eosinophils # (Auto) 0.0 x10^3/uL (0.0-0.7) Basophils # (Auto) 0.0 x10^3/uL (0.0-0.2) Medications Current Medications Sodium Chloride 1,000 ml @ 1,000 mls/hr 1X ONCE IV Last administered on 20:55; Start 11/19/16 at 20:45; Stop 11/19/16 at 21:44; Status DC Famotidine (Pepcid) 40 mg 1X ONCE IVP Last administered on 11/19/16 21:54; Start 11/19/16 at 21:30; Stop 11/19/16 at 21:31; Status DC Ondansetron HCl (Zofran) 4 mg PRN Q8HRS PRN IV NAUSEA/VOMITING Last administered on 11/19/16 21:54; Start 11/19/16 at 21:45; Stop 11/20/16 at 10:44 ; Status DC Morphine Sulfate 2 mg PRN Q2HR PRN IV PAIN; Start 11/19/16 at 21:45; Stop 11/20 at 21:44; Status DC Sodium Chloride 1,000 ml @ 110 mls/hr Q9H6M IV Last administered on 11/20/16 17:53; Start 11/19/16 at 21:41; Stop 11/20/16 at 21:40; Status DC Ondansetron HCl (Zofran) 4 mg PRN Q6HRS PRN IV NAUSEA/VOMITING; Start 11/20/16 at 10:42; Stop 11/21/16 at 10:41; Status DC Famotidine (Pepcid) 20 mg BID IVP Last administered on 11/22/16 09:32; Start 11/20/16 at 11:00 Atorvastatin Calcium (Lipitor) 10 mg QHS PO ; Start 11/20/16 at 21:00 Dutasteride (Avodart) 0.5 mg DAILY PO ; Start 11/20/16 at 11:00 Labetalol HCl (Normodyne) 10 mg PRN Q2HR PRN IVP HYPERTENSION, SEE COMMENTS; Start 11/20/16 at 10:45 Acetaminophen (Tylenol) 500 mg PRN Q6HRS PRN PO MILD PAIN / TEMP; Start at 10:45 Ondansetron HCl (Zofran) 4 mg PRN Q6HRS PRN IV NAUSEA/VOMITING; Start 11/21/16 at 07:00; Stop 11/22/16 at 06:59; Status DC Fentanyl Citrate (Fentanyl 2ml Vial) 25 mcg PRN Q5MIN PRN IV MILD PAIN; Start 11/21/16 at 07:00; Stop 11/22/16 at 06:59; Status DC Fentanyl Citrate (Fentanyl 2ml Vial) 50 mcg PRN Q5MIN PRN IV MODERATE PAIN; Start 11/21/16 at 07:00; Stop 11/22/16 at 06:59; Status DC Morphine Sulfate 1 mg PRN Q10MIN PRN IV SEVERE PAIN; Start 11/21/16 at 07:00; Stop 11/22/16 at 06:59; Status DC Ringer's Solution 1,000 ml @ 30 mls/hr Q24H IV ; Start 11/21/16 at 07:00; Stop 11/21/16 at 18:59; Status DC Lidocaine HCl 2 ml PRN 1X PRN ID PRIOR TO IV START; Start 11/21/16 at 07:00; Stop 11/22/16 at 06:59; Status DC Hydromorphone HCl (Dilaudid) 0.5 mg PRN Q10MIN PRN IV SEV PAIN, Second choice; Start 11/21/16 at 07:00; Stop 11/22/16 at 06:59; Status DC Prochlorperazine Edisylate (Compazine) 5 mg PACU PRN PRN IV NAUSEA, MRX1; Start 11/21/16 at 07:00; Stop 11/22/16 at 06:59; Status DC Hydralazine HCl (Apresoline) 10 mg PRN Q4HRS PRN IVP ELEVATED BP, SEE COMMENTS ; Start 11/20/16 at 15:30 Propofol 20 ml @ As Directed STK-MED ONCE IV ; Start 11/21/16 at 07:20; Stop at 07:21; Status DC Lidocaine HCl (Lidocaine Pf 2% Vial) 5 ml STK-MED ONCE .ROUTE ; Start 11/21/16 at 07:20; Stop 11/21/16 at 07:21; Status DC Ondansetron HCl (Zofran) 4 mg STK-MED ONCE .ROUTE ; Start 11/21/16 at 07:20; Stop 11/21/16 at 07:21; Status DC Dexamethasone Sodium Phosphate (Decadron) 20 mg STK-MED ONCE .ROUTE ; Start at 07:20; Stop 11/21/16 at 07:21; Status DC Phenylephrine HCl 1 mg STK-MED ONCE IV ; Start 11/21/16 at 07:21; Stop 11/21/16 at 07:22; Status DC Ephedrine Sulfate 50 mg STK-MED ONCE IV ; Start 11/21/16 at 07:21; Stop at 07:22; Status DC Fentanyl Citrate (Fentanyl 5ml Vial) 250 mcg STK-MED ONCE .ROUTE ; Start at 07:21; Stop 11/21/16 at 07:22; Status DC Rocuronium Alviso (Zemuron) 50 mg STK-MED ONCE .ROUTE ; Start 11/21/16 at 07:22 ; Stop 11/21/16 at 07:23; Status DC Famotidine (Pepcid) 20 mg STK-MED ONCE .ROUTE ; Start 11/21/16 at 07:23; Stop at 07:24; Status DC Cellulose 1 each STK-MED ONCE .ROUTE Last administered on 11/21/16 10:29; Start 11/21/16 at 07:33; Stop 11/21/16 at 07:34; Status DC Bupivacaine HCl/ Epinephrine Bitart (Marcaine-Epi 0.5%-[id number]) 50 ml STK-MED ONCE .ROUTE Last administered on 11/21/16 08:43; Start 11/21/16 at 07:34; Stop 11/21/16 at 07:35; Status DC Cefazolin Sodium/ Dextrose 50 ml @ 100 mls/hr 1X PREOP ONCE IV Last administered on 11/21/16 08:25; Start 11/21/16 at 07:37; Stop 11/21/16 at 08:06 ; Status DC Succinylcholine Chloride (Anectine) 200 mg STK-MED ONCE .ROUTE ; Start 11/21/16 at 07:59; Stop 11/21/16 at 08:00; Status DC Sevoflurane (Ultane) 90 ml STK-MED ONCE IH ; Start 11/21/16 at 09:24; Stop 11/21 at 09:25; Status DC Rocuronium Alviso (Zemuron) 50 mg STK-MED ONCE .ROUTE ; Start 11/21/16 at 09:25 ; Stop 11/21/16 at 09:26; Status DC Cellulose 1 each STK-MED ONCE .ROUTE ; Start 11/21/16 at 10:11; Stop 11/21/16 at 10:12; Status DC Sodium Bicarbonate 50 meq STK-MED ONCE .ROUTE ; Start 11/21/16 at 10:34; Stop at 10:35; Status DC Rocuronium Alviso (Zemuron) 50 mg STK-MED ONCE .ROUTE ; Start 11/21/16 at 11:00 ; Stop 11/21/16 at 11:01; Status DC Sevoflurane (Ultane) 90 ml STK-MED ONCE IH ; Start 11/21/16 at 12:46; Stop 11/21 at 12:47; Status DC Piperacillin Sod/ Tazobactam Sod 3.375 gm/Sodium Chloride 50 ml @ 100 mls/hr Q6HRS IV Last administered on 11/22/16 12:18; Start 11/21/16 at 14:00 Fentanyl Citrate (Fentanyl 2ml Vial) 25 mcg PRN Q2HR PRN IV PAIN Last administered on 11/21/16 17:42; Start 11/21/16 at 13:30 Fentanyl Citrate (Fentanyl 2ml Vial) 50 mcg PRN Q2HR PRN IV PAIN; Start at 13:30 Propofol 100 ml @ 0 mls/hr CONT PRN IV PER PROTOCOL Last administered on 09:34; Start 11/21/16 at 13:30 Fentanyl Citrate (Fentanyl 2ml Vial) 25 mcg PRN Q1HR PRN IV COMM; Start at 13:30 Fentanyl Citrate (Fentanyl 2ml Vial) 50 mcg PRN Q1HR PRN IV COMM; Start at 13:30 Chlorhexidine Gluconate (Peridex) 15 ml BID MM Last administered on 11/22/16 09:35; Start 11/21/16 at 21:00 Potassium Chloride/Dextrose/ Sod Cl 1,000 ml @ 100 mls/hr Q10H IV Last administered on 11/22/16t 02:24; Start 11/21/16 at 15:00 Active Scripts Active Reported Aspir 81 (Aspirin) 81 Mg Tablet.dr 81 Mg PO DAILY Atorvastatin Calcium 10 Mg Tablet 1 Tab PO DAILY Aspirin 81 Mg Tab.chew 1 Tab PO DAILY Avodart (Dutasteride) 0.5 Mg Capsule 1 Cap PO DAILY Vitals/I & O Vital Sign - Last 24 Hours 11/21/16 11/21/16 11/21/16 11/21/16 13:30 13:30 15:06 15:33 Pulse 80 Resp 21 B/P (MAP) 123/65 (84) Pulse Ox 100 99 98 O2 Delivery Ventilator Mechanical Ventilator Ventilator Ventilator 11/21/16 11/21/16 11/21/16 11/21/16 16:10 16:25 17:00 17:42 Temp 96.8 96.8 Pulse 74 70 Resp 22 22 B/P (MAP) 100/57 (71) 93/51 (65) Pulse Ox 97 97 97 O2 Delivery Mechanical Ventilator Ventilator Ventilator Ventilator O2 Flow Rate 2.0 11/21/16 11/21/16 11/21/16 11/21/16 18:21 18:25 18:27 19:00 Pulse 67 68 Resp 22 23 B/P (MAP) 90/48 (62) 104/52 (69) Pulse Ox 97 98 97 96 O2 Delivery Ventilator Ventilator Ventilator Ventilator O2 Flow Rate 2.0 11/21/16 11/21/16 11/21/16 11/21/16 19:55 20:00 20:00 21:00 Temp 98.8 98.8 Pulse 68 68 Resp 27 20 B/P (MAP) 96/54 (68) 124/58 (80) 100/50 (67) Pulse Ox 98 100 98 O2 Delivery Ventilator Mechanical Ventilator Ventilator Ventilator 11/21/16 11/21/16 11/21/16 11/22/16 22:00 22:39 23:00 00:00 Pulse 68 70 Resp 23 24 B/P (MAP) 110/54 (72) 122/58 (79) Pulse Ox 100 99 97 O2 Delivery Ventilator Ventilator Ventilator Mechanical Ventilator 11/22/16 11/22/16 11/22/16 11/22/16 00:00 01:00 01:12 02:00 Temp 99.7 99.7 Pulse 82 80 72 Resp 20 20 22 B/P (MAP) 102/56 (71) 112/98 (103) 99/50 (66) Pulse Ox 100 99 99 100 O2 Delivery Ventilator Ventilator Ventilator Ventilator 11/22/16 11/22/16 11/22/16 11/22/16 03:00 03:26 04:06 04:08 Temp 99.0 99.0 Pulse 69 69 Resp 20 20 B/P (MAP) 100/53 (69) 94/52 (66) Pulse Ox 99 99 99 O2 Delivery Ventilator Ventilator Mechanical Ventilator Ventilator 11/22/16 11/22/16 11/22/16 11/22/16 05:00 05:01 06:00 07:00 Pulse 66 74 72 Resp 22 20 20 B/P (MAP) 96/48 (64) 118/60 (79) 102/56 (71) Pulse Ox 99 99 100 99 O2 Delivery Ventilator Ventilator Ventilator Ventilator 11/22/16 11/22/16 11/22/16 11/22/16 07:21 08:00 08:00 09:00 Temp 99.2 99.2 Pulse 78 78 Resp 24 20 B/P (MAP) 135/68 (90) 133/64 (87) Pulse Ox 99 100 O2 Delivery Ventilator Mechanical Ventilator Ventilator Ventilator 11/22/16 11/22/16 11/22/16 11/22/16 09:03 10:00 11:00 11:29 Pulse 72 72 Resp 22 22 B/P (MAP) 119/56 (77) 102/52 (69) Pulse Ox 99 98 O2 Delivery Ventilator Ventilator Ventilator Ventilator 11/22/16 11/22/16 12:00 12:00 Temp 99.1 99.1 Pulse 71 Resp 20 B/P (MAP) 100/53 (69) O2 Delivery Ventilator Mechanical Ventilator Intake and Output 11/21/16 11/21/16 11/22/16 15:00 23:00 07:00 Intake Total 665 ml 1363 ml Output Total 451 ml 285 ml Balance 214 ml 1078 ml ANURADHA HALL MD Nov 22, 2016 13:04
--- NOTE | 2016-11-22 15:00 | PDOC ---
PULMONARY PROGRESS NOTES Subjective ON VENT Vitals Vital Signs Date Time Temp Pulse Resp B/P (MAP) Pulse Ox O2 Delivery O2 Flow Rate FiO2 11/22/16 12:57 99 Ventilator 11/22/16 12:00 99.1 71 20 100/53 (69) 99.1 11/21/16 18:21 2.0 Lungs: Crackles Cardiovascular: S1, S2 Abdomen: Soft Extremities: No Edema Skin: Warm Labs Laboratory Tests Test 11/20/16 18:00 11/21/16 03:30 11/21/16 09:20 11/21/16 10:25 Troponin I Quantitative 0.030 ng/mL (0.000-0.055) White Blood Count 10.5 x10^3/uL (4.0-11.0) Red Blood Count 3.27 x10^6/uL (4.30-5.70) Hemoglobin 11.3 g/dL (13.0-17.5) 10.1 g/dL (13.0-17.5) Hematocrit 32.6 % (39.0-53.0) 29.2 % (39.0-53.0) Mean Corpuscular Volume 100 fL (79-100) Mean Corpuscular Hemoglobin 34 pg (25-35) Mean Corpuscular Hemoglobin Concent 35 g/dL (31-37) Red Cell Distribution Width 13.4 % (11.5-14.5) Platelet Count 152 x10^3/uL (140-400) Neutrophils (%) (Auto) 79 % (31-73) Lymphocytes (%) (Auto) 5 % (24-48) Monocytes (%) (Auto) 17 % (0-9) Eosinophils (%) (Auto) 0 % (0-3) Basophils (%) (Auto) 0 % (0-3) Neutrophils # (Auto) 8.3 x10^3uL (1.8-7.7) Lymphocytes # (Auto) 0.5 x10^3/uL (1.0-4.8) Monocytes # (Auto) 1.8 x10^3/uL (0.0-1.1) Eosinophils # (Auto) 0.0 x10^3/uL (0.0-0.7) Basophils # (Auto) 0.0 x10^3/uL (0.0-0.2) Lactic Acid Level 1.1 mmol/L (0.4-2.0) Iron Level 46 ug/dL (65-175) Total Iron Binding Capacity 179 ug/dL (250-450) Iron Saturation 26 % (15-34) Vitamin B12 Level 339 pg/mL (247-911) Serum Folate 9.15 ng/ml (3.2-20.0) Reticulocyte Count (auto) 0.8 % (0.5-2.5) Sodium Level 147 mmol/L (136-145) Potassium Level 3.6 mmol/L (3.5-5.1) Chloride Level 115 mmol/L (98-107) Carbon Dioxide Level 23 mmol/L (21-32) Anion Gap 9 (6-14) Blood Urea Nitrogen 50 mg/dL (8-26) Creatinine 0.8 mg/dL (0.7-1.3) Estimated GFR (Cockcroft-Gault) 91.9 Glucose Level 133 mg/dL (70-99) 139 mg/dL (70-99) Calcium Level 7.3 mg/dL (8.5-10.1) Ferritin 109 ng/mL (26-388) Lactate Dehydrogenase 195 U/L (85-227) Bedside Hemoglobin (Calculated) 10.5 g/dL (14-18) Bedside Hematocrit 31 % (37-52) Bedside Arterial pH 7.20 (7.35-7.45) Arterial Blood pH (Temp corrected) 7.22 Bedside Arterial pCO2 51 mmHg (35-45) Arterial Blood pCO2 (Temp correct) 48 mmHg Bedside Arterial pO2 89 mmHg (75-100) Arterial Blood pO2 (Temp corrected) 81 mmHg Bedside Arterial HCO3 20 mmol/L (21-28) Bedside Arterial Total CO2 22 mmol/L (21-32) Arterial Bld O2 Saturation (Measur) 94 % (95-99) Bedside Arterial Blood Base Excess -8 mmol/L (0-3) Bedside FiO2 100.0 Bedside Sodium 146 mmol/L (135-145) Bedside Potassium 3.4 mmol/L (3.5-5.0) Bedside Ionized Calcium (Dalia) 1.25 mmol/L (1.13-1.32) Test 11/21/16 12:17 11/21/16 14:05 11/22/16 08:00 11/22/16 09:00 Bedside Hemoglobin (Calculated) 10.5 g/dL (14-18) Bedside Hematocrit 31 % (37-52) Bedside Arterial pH 7.31 (7.35-7.45) Arterial Blood pH (Temp corrected) 7.34 Bedside Arterial pCO2 38 mmHg (35-45) Arterial Blood pCO2 (Temp correct) 35 mmHg Bedside Arterial pO2 138 mmHg (75-100) Arterial Blood pO2 (Temp corrected) 127 mmHg Bedside Arterial HCO3 19 mmol/L (21-28) Bedside Arterial Total CO2 20 mmol/L (21-32) Arterial Bld O2 Saturation (Measur) 99 % (95-99) Bedside Arterial Blood Base Excess -7 mmol/L (0-3) Bedside FiO2 100.0 Bedside Sodium 147 mmol/L (135-145) Bedside Potassium 3.1 mmol/L (3.5-5.0) Glucose Level 117 mg/dL (70-99) Bedside Ionized Calcium (Dalia) 1.20 mmol/L (1.13-1.32) O2 Saturation 98 % (92-99) 97 % (92-99) Arterial Blood pH 7.34 (7.35-7.45) 7.46 (7.35-7.45) Arterial Blood pCO2 at Patient Temp 42 mmHg (35-46) 31 mmHg (35-46) Arterial Blood pO2 at Patient Temp 111 mmHg (65-108) 92 mmHg (65-108) Arterial Blood HCO3 22 mmol/L (21-28) 22 mmol/L (21-28) Arterial Blood Base Excess -4 mmol/L (-3-3) -1 mmol/L (-3-3) Oxyhemoglobin 97.1 % Methemoglobin 0.2 % (0.0-1.9) Carbon Monoxide, Quantitative 0.2 % (0.0-1.9) FiO2 100 50 White Blood Count 12.9 x10^3/uL (4.0-11.0) Red Blood Count 2.83 x10^6/uL (4.30-5.70) Hemoglobin 9.7 g/dL (13.0-17.5) Hematocrit 28.0 % (39.0-53.0) Mean Corpuscular Volume 99 fL (79-100) Mean Corpuscular Hemoglobin 34 pg (25-35) Mean Corpuscular Hemoglobin Concent 35 g/dL (31-37) Red Cell Distribution Width 13.1 % (11.5-14.5) Platelet Count 112 x10^3/uL (140-400) Neutrophils (%) (Auto) 91 % (31-73) Lymphocytes (%) (Auto) 2 % (24-48) Monocytes (%) (Auto) 6 % (0-9) Eosinophils (%) (Auto) 0 % (0-3) Basophils (%) (Auto) 0 % (0-3) Neutrophils # (Auto) 11.8 x10^3uL (1.8-7.7) Lymphocytes # (Auto) 0.3 x10^3/uL (1.0-4.8) Monocytes # (Auto) 0.8 x10^3/uL (0.0-1.1) Eosinophils # (Auto) 0.0 x10^3/uL (0.0-0.7) Basophils # (Auto) 0.0 x10^3/uL (0.0-0.2) Laboratory Tests Test 11/22/16 08:00 11/22/16 09:00 O2 Saturation 97 % (92-99) Arterial Blood pH 7.46 (7.35-7.45) Arterial Blood pCO2 at Patient Temp 31 mmHg (35-46) Arterial Blood pO2 at Patient Temp 92 mmHg (65-108) Arterial Blood HCO3 22 mmol/L (21-28) Arterial Blood Base Excess -1 mmol/L (-3-3) FiO2 50 White Blood Count 12.9 x10^3/uL (4.0-11.0) Red Blood Count 2.83 x10^6/uL (4.30-5.70) Hemoglobin 9.7 g/dL (13.0-17.5) Hematocrit 28.0 % (39.0-53.0) Mean Corpuscular Volume 99 fL (79-100) Mean Corpuscular Hemoglobin 34 pg (25-35) Mean Corpuscular Hemoglobin Concent 35 g/dL (31-37) Red Cell Distribution Width 13.1 % (11.5-14.5) Platelet Count 112 x10^3/uL (140-400) Neutrophils (%) (Auto) 91 % (31-73) Lymphocytes (%) (Auto) 2 % (24-48) Monocytes (%) (Auto) 6 % (0-9) Eosinophils (%) (Auto) 0 % (0-3) Basophils (%) (Auto) 0 % (0-3) Neutrophils # (Auto) 11.8 x10^3uL (1.8-7.7) Lymphocytes # (Auto) 0.3 x10^3/uL (1.0-4.8) Monocytes # (Auto) 0.8 x10^3/uL (0.0-1.1) Eosinophils # (Auto) 0.0 x10^3/uL (0.0-0.7) Basophils # (Auto) 0.0 x10^3/uL (0.0-0.2) Medications Active Scripts Medications Dose Route/Sig Max Daily Dose Days Date Category Aspir 81 (Aspirin) 81 Mg Tablet.dr 81 Mg PO DAILY 06/08/14 Reported Atorvastatin Calcium 10 Mg Tablet 1 Tab PO DAILY 03/10/14 Reported Aspirin 81 Mg Tab.chew 1 Tab PO DAILY 01/29/14 Reported Avodart (Dutasteride) 0.5 Mg Capsule 1 Cap PO DAILY 01/29/14 Reported Impression . ACUTE RESP FAILURE ASPIRATION PNEUMONIA S/P SEE OP NOTE Laparoscopic repair of large paraesophageal hernia, MELENA ARF Plan . D/W WENT OVER R/B/A BROCH TODAY CONTINUE SUPPORT IV FLUID ANTIBX SABRINA VALLEJO MD Nov 22, 2016 15:00
[2016-11-22] MEDS: ATORVASTATIN CALCIUM 10 MG TABLET. PO SCH (20:48)
[2016-11-23] VITALS (26 sets, daily range): BP systolic 87–139; BP diastolic 41–71
[2016-11-23] MEDS: POTASSIUM CL 40MEQ D5-0.45NACL 1,000 ML IV SCH ×3 (03:24→15:10)
[2016-11-23] MEDS: PIPERACILLIN/TAZOBACTAM 3.375 GM in IV NORMAL SALINE 50ML 50 ML IV SCH ×4 (05:34→23:45)
[2016-11-23 06:11] LABS: BASO % 0 % (0-3); EOS % 0 % (0-3); HEMATOCRIT 24.8 % (39.0-53.0); HEMOGLOBIN 8.6 g/dL (13.0-17.5); LYMPH # 0.3 x10^3/uL (1.0-4.8); LYMPH % 2 % (24-48); MEAN CORPUSCULAR HEMOGLOBIN 34 pg (25-35); MEAN CORPUSCULAR HGB CONC 35 g/dL (31-37); MEAN CORPUSCULAR VOLUME 99 fL (79-100); MONO % 7 % (0-9); NEUT % 91 % (31-73); PLATELET COUNT 104 x10^3/uL (140-400); RED BLOOD COUNT 2.51 x10^6/uL (4.30-5.70); RED CELL DISTRIBUTION WIDTH 13.3 % (11.5-14.5); WHITE BLOOD COUNT 13.8 x10^3/uL (4.0-11.0)
[2016-11-23 06:23] LABS: ALBUMIN 2.1 g/dL (3.4-5.0); ALBUMIN/GLOBULIN RATIO 0.8 (1.0-1.7); CALCIUM 8.5 mg/dL (8.5-10.1); POTASSIUM 3.8 mmol/L (3.5-5.1); TOTAL BILIRUBIN 0.6 mg/dL (0.2-1.0); TOTAL PROTEIN 4.7 g/dL (6.4-8.2)
[2016-11-23] MEDS: fentaNYL PF VIAL 100 MCG/2 ML VIAL IV PRN (06:34)
--- NOTE | 2016-11-23 08:10 | PDOC ---
SURGICAL PROGRESS NOTE Subjective Pt intubated and sedated Vital Signs Vital Signs Date Time Temp Pulse Resp B/P (MAP) Pulse Ox O2 Delivery O2 Flow Rate FiO2 11/23/16 08:01 97 Ventilator 11/23/16 07:00 65 22 92/48 (63) 11/23/16 04:00 99.7 99.7 I&O Intake and Output 11/23/16 06:59 Intake Total 2320 ml Output Total 1197 ml Balance 1123 ml IV Total 2280 ml Other 40 ml Output Urine Total 882 ml Drainage Total 315 ml # Bowel Movements 2 General: No acute distress Abdomen: Soft, No tenderness, Other (G-tube to drainage) Labs Laboratory Tests Test 11/21/16 09:20 11/21/16 10:25 11/21/16 12:17 11/21/16 14:05 Hemoglobin 10.1 g/dL (13.0-17.5) Hematocrit 29.2 % (39.0-53.0) Reticulocyte Count (auto) 0.8 % (0.5-2.5) Sodium Level 147 mmol/L (136-145) Potassium Level 3.6 mmol/L (3.5-5.1) Chloride Level 115 mmol/L (98-107) Carbon Dioxide Level 23 mmol/L (21-32) Anion Gap 9 (6-14) Blood Urea Nitrogen 50 mg/dL (8-26) Creatinine 0.8 mg/dL (0.7-1.3) Estimated GFR (Cockcroft-Gault) 91.9 Glucose Level 133 mg/dL (70-99) 139 mg/dL (70-99) 117 mg/dL (70-99) Calcium Level 7.3 mg/dL (8.5-10.1) Ferritin 109 ng/mL (26-388) Lactate Dehydrogenase 195 U/L (85-227) Bedside Hemoglobin (Calculated) 10.5 g/dL (14-18) 10.5 g/dL (14-18) Bedside Hematocrit 31 % (37-52) 31 % (37-52) Bedside Arterial pH 7.20 (7.35-7.45) 7.31 (7.35-7.45) Arterial Blood pH (Temp corrected) 7.22 7.34 Bedside Arterial pCO2 51 mmHg (35-45) 38 mmHg (35-45) Arterial Blood pCO2 (Temp correct) 48 mmHg 35 mmHg Bedside Arterial pO2 89 mmHg (75-100) 138 mmHg (75-100) Arterial Blood pO2 (Temp corrected) 81 mmHg 127 mmHg Bedside Arterial HCO3 20 mmol/L (21-28) 19 mmol/L (21-28) Bedside Arterial Total CO2 22 mmol/L (21-32) 20 mmol/L (21-32) Arterial Bld O2 Saturation (Measur) 94 % (95-99) 99 % (95-99) Bedside Arterial Blood Base Excess -8 mmol/L (0-3) -7 mmol/L (0-3) Bedside FiO2 100.0 100.0 Bedside Sodium 146 mmol/L (135-145) 147 mmol/L (135-145) Bedside Potassium 3.4 mmol/L (3.5-5.0) 3.1 mmol/L (3.5-5.0) Bedside Ionized Calcium (Dalia) 1.25 mmol/L (1.13-1.32) 1.20 mmol/L (1.13-1.32) O2 Saturation 98 % (92-99) Arterial Blood pH 7.34 (7.35-7.45) Arterial Blood pCO2 at Patient Temp 42 mmHg (35-46) Arterial Blood pO2 at Patient Temp 111 mmHg (65-108) Arterial Blood HCO3 22 mmol/L (21-28) Arterial Blood Base Excess -4 mmol/L (-3-3) Oxyhemoglobin 97.1 % Methemoglobin 0.2 % (0.0-1.9) Carbon Monoxide, Quantitative 0.2 % (0.0-1.9) FiO2 100 Test 11/22/16 06:15 11/22/16 08:00 11/22/16 09:00 11/23/16 05:00 Nasal Screen MRSA (PCR) Negative (Negative) O2 Saturation 97 % (92-99) Arterial Blood pH 7.46 (7.35-7.45) Arterial Blood pCO2 at Patient Temp 31 mmHg (35-46) Arterial Blood pO2 at Patient Temp 92 mmHg (65-108) Arterial Blood HCO3 22 mmol/L (21-28) Arterial Blood Base Excess -1 mmol/L (-3-3) FiO2 50 White Blood Count 12.9 x10^3/uL (4.0-11.0) 13.8 x10^3/uL (4.0-11.0) Red Blood Count 2.83 x10^6/uL (4.30-5.70) 2.51 x10^6/uL (4.30-5.70) Hemoglobin 9.7 g/dL (13.0-17.5) 8.6 g/dL (13.0-17.5) Hematocrit 28.0 % (39.0-53.0) 24.8 % (39.0-53.0) Mean Corpuscular Volume 99 fL (79-100) 99 fL (79-100) Mean Corpuscular Hemoglobin 34 pg (25-35) 34 pg (25-35) Mean Corpuscular Hemoglobin Concent 35 g/dL (31-37) 35 g/dL (31-37) Red Cell Distribution Width 13.1 % (11.5-14.5) 13.3 % (11.5-14.5) Platelet Count 112 x10^3/uL (140-400) 104 x10^3/uL (140-400) Neutrophils (%) (Auto) 91 % (31-73) 91 % (31-73) Lymphocytes (%) (Auto) 2 % (24-48) 2 % (24-48) Monocytes (%) (Auto) 6 % (0-9) 7 % (0-9) Eosinophils (%) (Auto) 0 % (0-3) 0 % (0-3) Basophils (%) (Auto) 0 % (0-3) 0 % (0-3) Neutrophils # (Auto) 11.8 x10^3uL (1.8-7.7) 12.5 x10^3uL (1.8-7.7) Lymphocytes # (Auto) 0.3 x10^3/uL (1.0-4.8) 0.3 x10^3/uL (1.0-4.8) Monocytes # (Auto) 0.8 x10^3/uL (0.0-1.1) 1.0 x10^3/uL (0.0-1.1) Eosinophils # (Auto) 0.0 x10^3/uL (0.0-0.7) 0.0 x10^3/uL (0.0-0.7) Basophils # (Auto) 0.0 x10^3/uL (0.0-0.2) 0.0 x10^3/uL (0.0-0.2) Sodium Level 147 mmol/L (136-145) Potassium Level 3.8 mmol/L (3.5-5.1) Chloride Level 115 mmol/L (98-107) Carbon Dioxide Level 23 mmol/L (21-32) Anion Gap 9 (6-14) Blood Urea Nitrogen 32 mg/dL (8-26) Creatinine 1.0 mg/dL (0.7-1.3) Estimated GFR (Cockcroft-Gault) 71.0 BUN/Creatinine Ratio 32 (6-20) Glucose Level 137 mg/dL (70-99) Calcium Level 8.5 mg/dL (8.5-10.1) Total Bilirubin 0.6 mg/dL (0.2-1.0) Aspartate Amino Transf (AST/SGOT) 25 U/L (15-37) Alanine Aminotransferase (ALT/SGPT) 27 U/L (16-63) Alkaline Phosphatase 37 U/L (46-116) Total Protein 4.7 g/dL (6.4-8.2) Albumin 2.1 g/dL (3.4-5.0) Albumin/Globulin Ratio 0.8 (1.0-1.7) Laboratory Tests Test 11/22/16 09:00 11/23/16 05:00 White Blood Count 12.9 x10^3/uL (4.0-11.0) 13.8 x10^3/uL (4.0-11.0) Red Blood Count 2.83 x10^6/uL (4.30-5.70) 2.51 x10^6/uL (4.30-5.70) Hemoglobin 9.7 g/dL (13.0-17.5) 8.6 g/dL (13.0-17.5) Hematocrit 28.0 % (39.0-53.0) 24.8 % (39.0-53.0) Mean Corpuscular Volume 99 fL (79-100) 99 fL (79-100) Mean Corpuscular Hemoglobin 34 pg (25-35) 34 pg (25-35) Mean Corpuscular Hemoglobin Concent 35 g/dL (31-37) 35 g/dL (31-37) Red Cell Distribution Width 13.1 % (11.5-14.5) 13.3 % (11.5-14.5) Platelet Count 112 x10^3/uL (140-400) 104 x10^3/uL (140-400) Neutrophils (%) (Auto) 91 % (31-73) 91 % (31-73) Lymphocytes (%) (Auto) 2 % (24-48) 2 % (24-48) Monocytes (%) (Auto) 6 % (0-9) 7 % (0-9) Eosinophils (%) (Auto) 0 % (0-3) 0 % (0-3) Basophils (%) (Auto) 0 % (0-3) 0 % (0-3) Neutrophils # (Auto) 11.8 x10^3uL (1.8-7.7) 12.5 x10^3uL (1.8-7.7) Lymphocytes # (Auto) 0.3 x10^3/uL (1.0-4.8) 0.3 x10^3/uL (1.0-4.8) Monocytes # (Auto) 0.8 x10^3/uL (0.0-1.1) 1.0 x10^3/uL (0.0-1.1) Eosinophils # (Auto) 0.0 x10^3/uL (0.0-0.7) 0.0 x10^3/uL (0.0-0.7) Basophils # (Auto) 0.0 x10^3/uL (0.0-0.2) 0.0 x10^3/uL (0.0-0.2) Sodium Level 147 mmol/L (136-145) Potassium Level 3.8 mmol/L (3.5-5.1) Chloride Level 115 mmol/L (98-107) Carbon Dioxide Level 23 mmol/L (21-32) Anion Gap 9 (6-14) Blood Urea Nitrogen 32 mg/dL (8-26) Creatinine 1.0 mg/dL (0.7-1.3) Estimated GFR (Cockcroft-Gault) 71.0 BUN/Creatinine Ratio 32 (6-20) Glucose Level 137 mg/dL (70-99) Calcium Level 8.5 mg/dL (8.5-10.1) Total Bilirubin 0.6 mg/dL (0.2-1.0) Aspartate Amino Transf (AST/SGOT) 25 U/L (15-37) Alanine Aminotransferase (ALT/SGPT) 27 U/L (16-63) Alkaline Phosphatase 37 U/L (46-116) Total Protein 4.7 g/dL (6.4-8.2) Albumin 2.1 g/dL (3.4-5.0) Albumin/Globulin Ratio 0.8 (1.0-1.7) Problem List Problems Medical Problems: (1) Upper GI bleeding Status: Acute Assessment/Plan s/p gastrectomy cont supportive care G-tube to drainage Problems: DAVIDSON LEE MD Nov 23, 2016 08:10
[2016-11-23 08:17] LABS: HCO3 ABG 21 mmol/L (21-28); PCO2 ABG 29 mmHg (35-46); PH ABG 7.48 (7.35-7.45); PO2 ABG 95 mmHg (65-108); SAT O2 ABG 97 % (92-99)
[2016-11-23 08:19] LABS: FIO2 ABG 50
--- NOTE | 2016-11-23 09:02 | RAD ---
Indication difficulty breathing. A single view of the chest was obtained and is compared to an examination one day earlier. Cardiomegaly is unchanged. Bipolar cardiac pacing device is noted. Endotracheal tube is appropriately positioned above the mala. Patchy pulmonary infiltrates in the lungs persist but appear minimally improved. Bilateral pleural effusions are seen. IMPRESSION: Minimal improvement. No new finding seen
[2016-11-23] MEDS: CHLORHEXIDINE 0.12% 15 ML MOUTHWASH. MM SCH ×2 (09:19→20:44)
[2016-11-23] MEDS: DUTASTERIDE 0.5 MG CAPSULE PO SCH ×2 (09:20→09:23)
[2016-11-23] MEDS: FAMOTIDINE 20 MG/2 ML VIAL IVP SCH ×2 (09:20→20:44)
--- NOTE | 2016-11-23 09:35 | PDOC ---
PROGRESS NOTES Chief Complaint Chief Complaint hematemesis ASSESSMENT AND PLAN: 1. UGIB: s/p Laparoscopic repair of large paraesophageal hernia, open partial gastrectomy, placement of gastrostomy with gastropexy, nutrition as per general surgery.Try ProcalAmine for today 2. Acute respiratory failure: On mechanical ventilation, off sedation, possible aspiration. Continue Zosyn, Continue current the sedation, pulmonology has been following the patient, labs and chest x-ray reviewed, discussed with the patient's daughter at bedside, current plan and management explained, all questions answered, 3. Leukocytosis: reactive, 4. Arrhythmia: hx pacer placement 5. Prophylaxis: SCDs; medical anticoag contraindicated, mild thrombocytopenia 6. 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 Monitor History of Present Illness History of Present Illness Discussed with daughter at bedside no agitation no acute events Vitals Vitals Vital Signs Date Time Temp Pulse Resp B/P (MAP) Pulse Ox O2 Delivery O2 Flow Rate FiO2 11/23/16 08:01 97 Ventilator 11/23/16 08:00 65 11/23/16 07:00 22 11/23/16 04:00 99.7 99.7 Physical Exam General: No acute distress, Other (intubated and sedated. ) Heart: Regular rate, Normal S1, Normal S2 Lungs: Clear Abdomen: Soft, No tenderness, Other (G-tube to drainage) Extremities: No clubbing, No cyanosis Skin: No rashes, No breakdown Labs LABS Laboratory Tests Test 11/23/16 05:00 11/23/16 08:10 White Blood Count 13.8 x10^3/uL (4.0-11.0) Red Blood Count 2.51 x10^6/uL (4.30-5.70) Hemoglobin 8.6 g/dL (13.0-17.5) Hematocrit 24.8 % (39.0-53.0) Mean Corpuscular Volume 99 fL (79-100) Mean Corpuscular Hemoglobin 34 pg (25-35) Mean Corpuscular Hemoglobin Concent 35 g/dL (31-37) Red Cell Distribution Width 13.3 % (11.5-14.5) Platelet Count 104 x10^3/uL (140-400) Neutrophils (%) (Auto) 91 % (31-73) Lymphocytes (%) (Auto) 2 % (24-48) Monocytes (%) (Auto) 7 % (0-9) Eosinophils (%) (Auto) 0 % (0-3) Basophils (%) (Auto) 0 % (0-3) Neutrophils # (Auto) 12.5 x10^3uL (1.8-7.7) Lymphocytes # (Auto) 0.3 x10^3/uL (1.0-4.8) Monocytes # (Auto) 1.0 x10^3/uL (0.0-1.1) Eosinophils # (Auto) 0.0 x10^3/uL (0.0-0.7) Basophils # (Auto) 0.0 x10^3/uL (0.0-0.2) Sodium Level 147 mmol/L (136-145) Potassium Level 3.8 mmol/L (3.5-5.1) Chloride Level 115 mmol/L (98-107) Carbon Dioxide Level 23 mmol/L (21-32) Anion Gap 9 (6-14) Blood Urea Nitrogen 32 mg/dL (8-26) Creatinine 1.0 mg/dL (0.7-1.3) Estimated GFR (Cockcroft-Gault) 71.0 BUN/Creatinine Ratio 32 (6-20) Glucose Level 137 mg/dL (70-99) Calcium Level 8.5 mg/dL (8.5-10.1) Total Bilirubin 0.6 mg/dL (0.2-1.0) Aspartate Amino Transf (AST/SGOT) 25 U/L (15-37) Alanine Aminotransferase (ALT/SGPT) 27 U/L (16-63) Alkaline Phosphatase 37 U/L (46-116) Total Protein 4.7 g/dL (6.4-8.2) Albumin 2.1 g/dL (3.4-5.0) Albumin/Globulin Ratio 0.8 (1.0-1.7) O2 Saturation 97 % (92-99) Arterial Blood pH 7.48 (7.35-7.45) Arterial Blood pCO2 at Patient Temp 29 mmHg (35-46) Arterial Blood pO2 at Patient Temp 95 mmHg (65-108) Arterial Blood HCO3 21 mmol/L (21-28) Arterial Blood Base Excess -2 mmol/L (-3-3) FiO2 50 Assessment and Plan Assessmemt and Plan Problems Medical Problems: (1) Upper GI bleeding Status: Acute Problems: Comment Review of Relevant I have reviewed the following items cordell (where applicable) has been applied. Labs Laboratory Tests Test 11/21/16 10:25 11/21/16 12:17 11/21/16 14:05 11/22/16 06:15 Bedside Hemoglobin (Calculated) 10.5 g/dL (14-18) 10.5 g/dL (14-18) Bedside Hematocrit 31 % (37-52) 31 % (37-52) Bedside Arterial pH 7.20 (7.35-7.45) 7.31 (7.35-7.45) Arterial Blood pH (Temp corrected) 7.22 7.34 Bedside Arterial pCO2 51 mmHg (35-45) 38 mmHg (35-45) Arterial Blood pCO2 (Temp correct) 48 mmHg 35 mmHg Bedside Arterial pO2 89 mmHg (75-100) 138 mmHg (75-100) Arterial Blood pO2 (Temp corrected) 81 mmHg 127 mmHg Bedside Arterial HCO3 20 mmol/L (21-28) 19 mmol/L (21-28) Bedside Arterial Total CO2 22 mmol/L (21-32) 20 mmol/L (21-32) Arterial Bld O2 Saturation (Measur) 94 % (95-99) 99 % (95-99) Bedside Arterial Blood Base Excess -8 mmol/L (0-3) -7 mmol/L (0-3) Bedside FiO2 100.0 100.0 Bedside Sodium 146 mmol/L (135-145) 147 mmol/L (135-145) Bedside Potassium 3.4 mmol/L (3.5-5.0) 3.1 mmol/L (3.5-5.0) Glucose Level 139 mg/dL (70-99) 117 mg/dL (70-99) Bedside Ionized Calcium (Dalia) 1.25 mmol/L (1.13-1.32) 1.20 mmol/L (1.13-1.32) O2 Saturation 98 % (92-99) Arterial Blood pH 7.34 (7.35-7.45) Arterial Blood pCO2 at Patient Temp 42 mmHg (35-46) Arterial Blood pO2 at Patient Temp 111 mmHg (65-108) Arterial Blood HCO3 22 mmol/L (21-28) Arterial Blood Base Excess -4 mmol/L (-3-3) Oxyhemoglobin 97.1 % Methemoglobin 0.2 % (0.0-1.9) Carbon Monoxide, Quantitative 0.2 % (0.0-1.9) FiO2 100 Nasal Screen MRSA (PCR) Negative (Negative) Test 11/22/16 08:00 11/22/16 09:00 11/23/16 05:00 11/23/16 08:10 O2 Saturation 97 % (92-99) 97 % (92-99) Arterial Blood pH 7.46 (7.35-7.45) 7.48 (7.35-7.45) Arterial Blood pCO2 at Patient Temp 31 mmHg (35-46) 29 mmHg (35-46) Arterial Blood pO2 at Patient Temp 92 mmHg (65-108) 95 mmHg (65-108) Arterial Blood HCO3 22 mmol/L (21-28) 21 mmol/L (21-28) Arterial Blood Base Excess -1 mmol/L (-3-3) -2 mmol/L (-3-3) FiO2 50 50 White Blood Count 12.9 x10^3/uL (4.0-11.0) 13.8 x10^3/uL (4.0-11.0) Red Blood Count 2.83 x10^6/uL (4.30-5.70) 2.51 x10^6/uL (4.30-5.70) Hemoglobin 9.7 g/dL (13.0-17.5) 8.6 g/dL (13.0-17.5) Hematocrit 28.0 % (39.0-53.0) 24.8 % (39.0-53.0) Mean Corpuscular Volume 99 fL (79-100) 99 fL (79-100) Mean Corpuscular Hemoglobin 34 pg (25-35) 34 pg (25-35) Mean Corpuscular Hemoglobin Concent 35 g/dL (31-37) 35 g/dL (31-37) Red Cell Distribution Width 13.1 % (11.5-14.5) 13.3 % (11.5-14.5) Platelet Count 112 x10^3/uL (140-400) 104 x10^3/uL (140-400) Neutrophils (%) (Auto) 91 % (31-73) 91 % (31-73) Lymphocytes (%) (Auto) 2 % (24-48) 2 % (24-48) Monocytes (%) (Auto) 6 % (0-9) 7 % (0-9) Eosinophils (%) (Auto) 0 % (0-3) 0 % (0-3) Basophils (%) (Auto) 0 % (0-3) 0 % (0-3) Neutrophils # (Auto) 11.8 x10^3uL (1.8-7.7) 12.5 x10^3uL (1.8-7.7) Lymphocytes # (Auto) 0.3 x10^3/uL (1.0-4.8) 0.3 x10^3/uL (1.0-4.8) Monocytes # (Auto) 0.8 x10^3/uL (0.0-1.1) 1.0 x10^3/uL (0.0-1.1) Eosinophils # (Auto) 0.0 x10^3/uL (0.0-0.7) 0.0 x10^3/uL (0.0-0.7) Basophils # (Auto) 0.0 x10^3/uL (0.0-0.2) 0.0 x10^3/uL (0.0-0.2) Sodium Level 147 mmol/L (136-145) Potassium Level 3.8 mmol/L (3.5-5.1) Chloride Level 115 mmol/L (98-107) Carbon Dioxide Level 23 mmol/L (21-32) Anion Gap 9 (6-14) Blood Urea Nitrogen 32 mg/dL (8-26) Creatinine 1.0 mg/dL (0.7-1.3) Estimated GFR (Cockcroft-Gault) 71.0 BUN/Creatinine Ratio 32 (6-20) Glucose Level 137 mg/dL (70-99) Calcium Level 8.5 mg/dL (8.5-10.1) Total Bilirubin 0.6 mg/dL (0.2-1.0) Aspartate Amino Transf (AST/SGOT) 25 U/L (15-37) Alanine Aminotransferase (ALT/SGPT) 27 U/L (16-63) Alkaline Phosphatase 37 U/L (46-116) Total Protein 4.7 g/dL (6.4-8.2) Albumin 2.1 g/dL (3.4-5.0) Albumin/Globulin Ratio 0.8 (1.0-1.7) Laboratory Tests Test 11/23/16 05:00 11/23/16 08:10 White Blood Count 13.8 x10^3/uL (4.0-11.0) Red Blood Count 2.51 x10^6/uL (4.30-5.70) Hemoglobin 8.6 g/dL (13.0-17.5) Hematocrit 24.8 % (39.0-53.0) Mean Corpuscular Volume 99 fL (79-100) Mean Corpuscular Hemoglobin 34 pg (25-35) Mean Corpuscular Hemoglobin Concent 35 g/dL (31-37) Red Cell Distribution Width 13.3 % (11.5-14.5) Platelet Count 104 x10^3/uL (140-400) Neutrophils (%) (Auto) 91 % (31-73) Lymphocytes (%) (Auto) 2 % (24-48) Monocytes (%) (Auto) 7 % (0-9) Eosinophils (%) (Auto) 0 % (0-3) Basophils (%) (Auto) 0 % (0-3) Neutrophils # (Auto) 12.5 x10^3uL (1.8-7.7) Lymphocytes # (Auto) 0.3 x10^3/uL (1.0-4.8) Monocytes # (Auto) 1.0 x10^3/uL (0.0-1.1) Eosinophils # (Auto) 0.0 x10^3/uL (0.0-0.7) Basophils # (Auto) 0.0 x10^3/uL (0.0-0.2) Sodium Level 147 mmol/L (136-145) Potassium Level 3.8 mmol/L (3.5-5.1) Chloride Level 115 mmol/L (98-107) Carbon Dioxide Level 23 mmol/L (21-32) Anion Gap 9 (6-14) Blood Urea Nitrogen 32 mg/dL (8-26) Creatinine 1.0 mg/dL (0.7-1.3) Estimated GFR (Cockcroft-Gault) 71.0 BUN/Creatinine Ratio 32 (6-20) Glucose Level 137 mg/dL (70-99) Calcium Level 8.5 mg/dL (8.5-10.1) Total Bilirubin 0.6 mg/dL (0.2-1.0) Aspartate Amino Transf (AST/SGOT) 25 U/L (15-37) Alanine Aminotransferase (ALT/SGPT) 27 U/L (16-63) Alkaline Phosphatase 37 U/L (46-116) Total Protein 4.7 g/dL (6.4-8.2) Albumin 2.1 g/dL (3.4-5.0) Albumin/Globulin Ratio 0.8 (1.0-1.7) O2 Saturation 97 % (92-99) Arterial Blood pH 7.48 (7.35-7.45) Arterial Blood pCO2 at Patient Temp 29 mmHg (35-46) Arterial Blood pO2 at Patient Temp 95 mmHg (65-108) Arterial Blood HCO3 21 mmol/L (21-28) Arterial Blood Base Excess -2 mmol/L (-3-3) FiO2 50 Microbiology 11/19/16 Urine Culture - Final, Complete 11/19/16 Urine Culture Result 1 ([facility]) - Final, Complete Medications Current Medications Sodium Chloride 1,000 ml @ 1,000 mls/hr 1X ONCE IV Last administered on 20:55; Start 11/19/16 at 20:45; Stop 11/19/16 at 21:44; Status DC Famotidine (Pepcid) 40 mg 1X ONCE IVP Last administered on 11/19/16 21:54; Start 11/19/16 at 21:30; Stop 11/19/16 at 21:31; Status DC Ondansetron HCl (Zofran) 4 mg PRN Q8HRS PRN IV NAUSEA/VOMITING Last administered on 11/19/16 21:54; Start 11/19/16 at 21:45; Stop 11/20/16 at 10:44 ; Status DC Morphine Sulfate 2 mg PRN Q2HR PRN IV PAIN; Start 11/19/16 at 21:45; Stop 11/20 at 21:44; Status DC Sodium Chloride 1,000 ml @ 110 mls/hr Q9H6M IV Last administered on 11/20/16 17:53; Start 11/19/16 at 21:41; Stop 11/20/16 at 21:40; Status DC Ondansetron HCl (Zofran) 4 mg PRN Q6HRS PRN IV NAUSEA/VOMITING; Start 11/20/16 at 10:42; Stop 11/21/16 at 10:41; Status DC Famotidine (Pepcid) 20 mg BID IVP Last administered on 11/23/16t 09:20; Start 11/20/16 at 11:00 Atorvastatin Calcium (Lipitor) 10 mg QHS PO ; Start 11/20/16 at 21:00 Dutasteride (Avodart) 0.5 mg DAILY PO ; Start 11/20/16 at 11:00 Labetalol HCl (Normodyne) 10 mg PRN Q2HR PRN IVP HYPERTENSION, SEE COMMENTS; Start 11/20/16 at 10:45 Acetaminophen (Tylenol) 500 mg PRN Q6HRS PRN PO MILD PAIN / TEMP; Start at 10:45 Ondansetron HCl (Zofran) 4 mg PRN Q6HRS PRN IV NAUSEA/VOMITING; Start 11/21/16 at 07:00; Stop 11/22/16 at 06:59; Status DC Fentanyl Citrate (Fentanyl 2ml Vial) 25 mcg PRN Q5MIN PRN IV MILD PAIN; Start 11/21/16 at 07:00; Stop 11/22/16 at 06:59; Status DC Fentanyl Citrate (Fentanyl 2ml Vial) 50 mcg PRN Q5MIN PRN IV MODERATE PAIN; Start 11/21/16 at 07:00; Stop 11/22/16 at 06:59; Status DC Morphine Sulfate 1 mg PRN Q10MIN PRN IV SEVERE PAIN; Start 11/21/16 at 07:00; Stop 11/22/16 at 06:59; Status DC Ringer's Solution 1,000 ml @ 30 mls/hr Q24H IV ; Start 11/21/16 at 07:00; Stop 11/21/16 at 18:59; Status DC Lidocaine HCl 2 ml PRN 1X PRN ID PRIOR TO IV START; Start 11/21/16 at 07:00; Stop 11/22/16 at 06:59; Status DC Hydromorphone HCl (Dilaudid) 0.5 mg PRN Q10MIN PRN IV SEV PAIN, Second choice; Start 11/21/16 at 07:00; Stop 11/22/16 at 06:59; Status DC Prochlorperazine Edisylate (Compazine) 5 mg PACU PRN PRN IV NAUSEA, MRX1; Start 11/21/16 at 07:00; Stop 11/22/16 at 06:59; Status DC Hydralazine HCl (Apresoline) 10 mg PRN Q4HRS PRN IVP ELEVATED BP, SEE COMMENTS ; Start 11/20/16 at 15:30 Propofol 20 ml @ As Directed STK-MED ONCE IV ; Start 11/21/16 at 07:20; Stop at 07:21; Status DC Lidocaine HCl (Lidocaine Pf 2% Vial) 5 ml STK-MED ONCE .ROUTE ; Start 11/21/16 at 07:20; Stop 11/21/16 at 07:21; Status DC Ondansetron HCl (Zofran) 4 mg STK-MED ONCE .ROUTE ; Start 11/21/16 at 07:20; Stop 11/21/16 at 07:21; Status DC Dexamethasone Sodium Phosphate (Decadron) 20 mg STK-MED ONCE .ROUTE ; Start at 07:20; Stop 11/21/16 at 07:21; Status DC Phenylephrine HCl 1 mg STK-MED ONCE IV ; Start 11/21/16 at 07:21; Stop 11/21/16 at 07:22; Status DC Ephedrine Sulfate 50 mg STK-MED ONCE IV ; Start 11/21/16 at 07:21; Stop at 07:22; Status DC Fentanyl Citrate (Fentanyl 5ml Vial) 250 mcg STK-MED ONCE .ROUTE ; Start at 07:21; Stop 11/21/16 at 07:22; Status DC Rocuronium [place] (Zemuron) 50 mg STK-MED ONCE .ROUTE ; Start 11/21/16 at 07:22 ; Stop 11/21/16 at 07:23; Status DC Famotidine (Pepcid) 20 mg STK-MED ONCE .ROUTE ; Start 11/21/16 at 07:23; Stop at 07:24; Status DC Cellulose 1 each STK-MED ONCE .ROUTE Last administered on 11/21/16t 10:29; Start 11/21/16 at 07:33; Stop 11/21/16 at 07:34; Status DC Bupivacaine HCl/ Epinephrine Bitart (Marcaine-Epi 0.5%-[id number]) 50 ml STK-MED ONCE .ROUTE Last administered on 11/21/16 08:43; Start 11/21/16 at 07:34; Stop 11/21/16 at 07:35; Status DC Cefazolin Sodium/ Dextrose 50 ml @ 100 mls/hr 1X PREOP ONCE IV Last administered on 11/21/16 08:25; Start 11/21/16 at 07:37; Stop 11/21/16 at 08:06 ; Status DC Succinylcholine Chloride (Anectine) 200 mg STK-MED ONCE .ROUTE ; Start 11/21/16 at 07:59; Stop 11/21/16 at 08:00; Status DC Sevoflurane (Ultane) 90 ml STK-MED ONCE IH ; Start 11/21/16 at 09:24; Stop 11/21 at 09:25; Status DC Rocuronium [place] (Zemuron) 50 mg STK-MED ONCE .ROUTE ; Start 11/21/16 at 09:25 ; Stop 11/21/16 at 09:26; Status DC Cellulose 1 each STK-MED ONCE .ROUTE ; Start 11/21/16 at 10:11; Stop 11/21/16 at 10:12; Status DC Sodium Bicarbonate 50 meq STK-MED ONCE .ROUTE ; Start 11/21/16 at 10:34; Stop at 10:35; Status DC Rocuronium [place] (Zemuron) 50 mg STK-MED ONCE .ROUTE ; Start 11/21/16 at 11:00 ; Stop 11/21/16 at 11:01; Status DC Sevoflurane (Ultane) 90 ml STK-MED ONCE IH ; Start 11/21/16 at 12:46; Stop 11/21 at 12:47; Status DC Piperacillin Sod/ Tazobactam Sod 3.375 gm/Sodium Chloride 50 ml @ 100 mls/hr Q6HRS IV Last administered on 11/23/16 05:34; Start 11/21/16 at 14:00 Fentanyl Citrate (Fentanyl 2ml Vial) 25 mcg PRN Q2HR PRN IV PAIN Last administered on 11/23/16 06:34; Start 11/21/16 at 13:30 Fentanyl Citrate (Fentanyl 2ml Vial) 50 mcg PRN Q2HR PRN IV PAIN; Start at 13:30 Propofol 100 ml @ 0 mls/hr CONT PRN IV PER PROTOCOL Last administered on 21:50; Start 11/21/16 at 13:30 Fentanyl Citrate (Fentanyl 2ml Vial) 25 mcg PRN Q1HR PRN IV COMM; Start at 13:30 Fentanyl Citrate (Fentanyl 2ml Vial) 50 mcg PRN Q1HR PRN IV COMM; Start at 13:30 Chlorhexidine Gluconate (Peridex) 15 ml BID MM Last administered on 11/23/16 09:19; Start 11/21/16 at 21:00 Potassium Chloride/Dextrose/ Sod Cl 1,000 ml @ 100 mls/hr Q10H IV Last administered on 11/23/16 09:21; Start 11/21/16 at 15:00 Active Scripts Active Reported Aspir 81 (Aspirin) 81 Mg Tablet.dr 81 Mg PO DAILY Atorvastatin Calcium 10 Mg Tablet 1 Tab PO DAILY Aspirin 81 Mg Tab.chew 1 Tab PO DAILY Avodart (Dutasteride) 0.5 Mg Capsule 1 Cap PO DAILY Vitals/I & O Vital Sign - Last 24 Hours 11/22/16 11/22/16 11/22/16 11/22/16 10:00 11:00 11:29 12:00 Temp 99.1 99.1 Pulse 72 72 71 Resp 22 22 20 B/P (MAP) 119/56 (77) 102/52 (69) 100/53 (69) Pulse Ox 99 99 98 96 O2 Delivery Ventilator Ventilator Ventilator Ventilator 11/22/16 11/22/16 11/22/16 11/22/16 12:00 12:57 13:00 14:00 Pulse 72 68 Resp 23 24 B/P (MAP) 101/52 (68) 126/58 (80) Pulse Ox 99 99 99 O2 Delivery Mechanical Ventilator Ventilator Ventilator Ventilator 11/22/16 11/22/16 11/22/16 11/22/16 15:00 15:15 16:00 16:00 Temp 99.9 99.9 Pulse 70 80 Resp 22 20 B/P (MAP) 122/54 (76) 142/64 (90) Pulse Ox 99 98 100 O2 Delivery Ventilator Ventilator Mechanical Ventilator Ventilator 11/22/16 11/22/16 11/22/16 11/22/16 17:00 17:15 18:00 19:00 Pulse 82 75 75 Resp 23 22 20 B/P (MAP) 108/54 (72) 112/55 (74) 106/54 (71) Pulse Ox 99 98 98 98 O2 Delivery Ventilator Ventilator Ventilator Ventilator 11/22/16 11/22/16 11/22/16 11/22/16 19:47 19:59 20:00 20:00 Temp 99.6 99.6 Pulse 72 72 Resp 22 B/P (MAP) 105/57 (73) 105/57 (73) Pulse Ox 99 98 O2 Delivery Ventilator Mechanical Ventilator Ventilator 11/22/16 11/22/16 11/22/16 11/22/16 21:00 22:00 23:00 23:27 Pulse 71 74 65 Resp 20 23 20 B/P (MAP) 120/59 (79) 118/56 (76) 118/59 (78) Pulse Ox 98 98 98 99 O2 Delivery Ventilator Ventilator Ventilator Ventilator 11/22/16 11/22/16 11/23/16 11/23/16 23:59 23:59 00:00 01:00 Temp 99.0 99.0 Pulse 67 67 75 Resp 22 20 B/P (MAP) 113/54 (73) 113/54 (73) 129/59 (82) Pulse Ox 98 98 O2 Delivery Mechanical Ventilator Ventilator Ventilator 11/23/16 11/23/16 11/23/16 11/23/16 01:42 02:00 03:00 03:35 Pulse 64 69 Resp 20 20 B/P (MAP) 120/60 (80) 105/52 (69) Pulse Ox 97 99 98 98 O2 Delivery Ventilator Ventilator Ventilator Ventilator 11/23/16 11/23/16 11/23/16 11/23/16 04:00 04:00 04:00 05:00 Temp 99.7 99.7 Pulse 70 70 72 Resp 22 24 B/P (MAP) 129/71 (90) 129/71 (90) 139/64 (89) Pulse Ox 99 98 O2 Delivery Mechanical Ventilator Ventilator Ventilator 11/23/16 11/23/16 11/23/16 11/23/16 06:00 07:00 07:00 08:00 Pulse 60 65 Resp 20 22 22 B/P (MAP) 92/50 (64) 92/48 (63) Pulse Ox 97 98 96 O2 Delivery Ventilator Ventilator Mechanical Ventilator 11/23/16 11/23/16 08:00 08:01 Pulse 65 B/P (MAP) Pulse Ox 97 O2 Delivery Ventilator Intake and Output 11/22/16 11/22/16 11/23/16 15:00 23:00 07:00 Intake Total 50 ml 1012 ml 1258 ml Output Total 215 ml 455 ml 527 ml Balance -165 ml 557 ml 731 ml ANURADHA HALL MD Nov 23, 2016 09:35
[2016-11-23] MEDS: PROPOFOL 100 ML IV PRN ×2 (09:49→22:06)
--- NOTE | 2016-11-23 11:04 | PDOC ---
PULMONARY PROGRESS NOTES Subjective ON VENT, sedated, off sedation, agitated, has mod-large secretion Vitals Vital Signs Date Time Temp Pulse Resp B/P (MAP) Pulse Ox O2 Delivery O2 Flow Rate FiO2 11/23/16 10:15 20 93 Ventilator 11/23/16 10:00 81 105/49 (67) 11/23/16 08:00 98.1 98.1 Comments ros discussed w rn, as mentioned as above, other sys otherwise neg HEENT: Other (nc at perrl, orally intubated, nose clear, neck, no thyromegaly, no lap) Lungs: Crackles Cardiovascular: S1, S2 Abdomen: Soft, Non-tender, Other (no mass) Extremities: No Edema Skin: Warm Labs Laboratory Tests Test 11/21/16 12:17 11/21/16 14:05 11/22/16 06:15 11/22/16 08:00 Bedside Hemoglobin (Calculated) 10.5 g/dL (14-18) Bedside Hematocrit 31 % (37-52) Bedside Arterial pH 7.31 (7.35-7.45) Arterial Blood pH (Temp corrected) 7.34 Bedside Arterial pCO2 38 mmHg (35-45) Arterial Blood pCO2 (Temp correct) 35 mmHg Bedside Arterial pO2 138 mmHg (75-100) Arterial Blood pO2 (Temp corrected) 127 mmHg Bedside Arterial HCO3 19 mmol/L (21-28) Bedside Arterial Total CO2 20 mmol/L (21-32) Arterial Bld O2 Saturation (Measur) 99 % (95-99) Bedside Arterial Blood Base Excess -7 mmol/L (0-3) Bedside FiO2 100.0 Bedside Sodium 147 mmol/L (135-145) Bedside Potassium 3.1 mmol/L (3.5-5.0) Glucose Level 117 mg/dL (70-99) Bedside Ionized Calcium (Dalia) 1.20 mmol/L (1.13-1.32) O2 Saturation 98 % (92-99) 97 % (92-99) Arterial Blood pH 7.34 (7.35-7.45) 7.46 (7.35-7.45) Arterial Blood pCO2 at Patient Temp 42 mmHg (35-46) 31 mmHg (35-46) Arterial Blood pO2 at Patient Temp 111 mmHg (65-108) 92 mmHg (65-108) Arterial Blood HCO3 22 mmol/L (21-28) 22 mmol/L (21-28) Arterial Blood Base Excess -4 mmol/L (-3-3) -1 mmol/L (-3-3) Oxyhemoglobin 97.1 % Methemoglobin 0.2 % (0.0-1.9) Carbon Monoxide, Quantitative 0.2 % (0.0-1.9) FiO2 100 50 Nasal Screen MRSA (PCR) Negative (Negative) Test 11/22/16 09:00 11/23/16 05:00 11/23/16 08:10 White Blood Count 12.9 x10^3/uL (4.0-11.0) 13.8 x10^3/uL (4.0-11.0) Red Blood Count 2.83 x10^6/uL (4.30-5.70) 2.51 x10^6/uL (4.30-5.70) Hemoglobin 9.7 g/dL (13.0-17.5) 8.6 g/dL (13.0-17.5) Hematocrit 28.0 % (39.0-53.0) 24.8 % (39.0-53.0) Mean Corpuscular Volume 99 fL (79-100) 99 fL (79-100) Mean Corpuscular Hemoglobin 34 pg (25-35) 34 pg (25-35) Mean Corpuscular Hemoglobin Concent 35 g/dL (31-37) 35 g/dL (31-37) Red Cell Distribution Width 13.1 % (11.5-14.5) 13.3 % (11.5-14.5) Platelet Count 112 x10^3/uL (140-400) 104 x10^3/uL (140-400) Neutrophils (%) (Auto) 91 % (31-73) 91 % (31-73) Lymphocytes (%) (Auto) 2 % (24-48) 2 % (24-48) Monocytes (%) (Auto) 6 % (0-9) 7 % (0-9) Eosinophils (%) (Auto) 0 % (0-3) 0 % (0-3) Basophils (%) (Auto) 0 % (0-3) 0 % (0-3) Neutrophils # (Auto) 11.8 x10^3uL (1.8-7.7) 12.5 x10^3uL (1.8-7.7) Lymphocytes # (Auto) 0.3 x10^3/uL (1.0-4.8) 0.3 x10^3/uL (1.0-4.8) Monocytes # (Auto) 0.8 x10^3/uL (0.0-1.1) 1.0 x10^3/uL (0.0-1.1) Eosinophils # (Auto) 0.0 x10^3/uL (0.0-0.7) 0.0 x10^3/uL (0.0-0.7) Basophils # (Auto) 0.0 x10^3/uL (0.0-0.2) 0.0 x10^3/uL (0.0-0.2) Sodium Level 147 mmol/L (136-145) Potassium Level 3.8 mmol/L (3.5-5.1) Chloride Level 115 mmol/L (98-107) Carbon Dioxide Level 23 mmol/L (21-32) Anion Gap 9 (6-14) Blood Urea Nitrogen 32 mg/dL (8-26) Creatinine 1.0 mg/dL (0.7-1.3) Estimated GFR (Cockcroft-Gault) 71.0 BUN/Creatinine Ratio 32 (6-20) Glucose Level 137 mg/dL (70-99) Calcium Level 8.5 mg/dL (8.5-10.1) Total Bilirubin 0.6 mg/dL (0.2-1.0) Aspartate Amino Transf (AST/SGOT) 25 U/L (15-37) Alanine Aminotransferase (ALT/SGPT) 27 U/L (16-63) Alkaline Phosphatase 37 U/L (46-116) Total Protein 4.7 g/dL (6.4-8.2) Albumin 2.1 g/dL (3.4-5.0) Albumin/Globulin Ratio 0.8 (1.0-1.7) O2 Saturation 97 % (92-99) Arterial Blood pH 7.48 (7.35-7.45) Arterial Blood pCO2 at Patient Temp 29 mmHg (35-46) Arterial Blood pO2 at Patient Temp 95 mmHg (65-108) Arterial Blood HCO3 21 mmol/L (21-28) Arterial Blood Base Excess -2 mmol/L (-3-3) FiO2 50 Laboratory Tests Test 11/23/16 05:00 11/23/16 08:10 White Blood Count 13.8 x10^3/uL (4.0-11.0) Red Blood Count 2.51 x10^6/uL (4.30-5.70) Hemoglobin 8.6 g/dL (13.0-17.5) Hematocrit 24.8 % (39.0-53.0) Mean Corpuscular Volume 99 fL (79-100) Mean Corpuscular Hemoglobin 34 pg (25-35) Mean Corpuscular Hemoglobin Concent 35 g/dL (31-37) Red Cell Distribution Width 13.3 % (11.5-14.5) Platelet Count 104 x10^3/uL (140-400) Neutrophils (%) (Auto) 91 % (31-73) Lymphocytes (%) (Auto) 2 % (24-48) Monocytes (%) (Auto) 7 % (0-9) Eosinophils (%) (Auto) 0 % (0-3) Basophils (%) (Auto) 0 % (0-3) Neutrophils # (Auto) 12.5 x10^3uL (1.8-7.7) Lymphocytes # (Auto) 0.3 x10^3/uL (1.0-4.8) Monocytes # (Auto) 1.0 x10^3/uL (0.0-1.1) Eosinophils # (Auto) 0.0 x10^3/uL (0.0-0.7) Basophils # (Auto) 0.0 x10^3/uL (0.0-0.2) Sodium Level 147 mmol/L (136-145) Potassium Level 3.8 mmol/L (3.5-5.1) Chloride Level 115 mmol/L (98-107) Carbon Dioxide Level 23 mmol/L (21-32) Anion Gap 9 (6-14) Blood Urea Nitrogen 32 mg/dL (8-26) Creatinine 1.0 mg/dL (0.7-1.3) Estimated GFR (Cockcroft-Gault) 71.0 BUN/Creatinine Ratio 32 (6-20) Glucose Level 137 mg/dL (70-99) Calcium Level 8.5 mg/dL (8.5-10.1) Total Bilirubin 0.6 mg/dL (0.2-1.0) Aspartate Amino Transf (AST/SGOT) 25 U/L (15-37) Alanine Aminotransferase (ALT/SGPT) 27 U/L (16-63) Alkaline Phosphatase 37 U/L (46-116) Total Protein 4.7 g/dL (6.4-8.2) Albumin 2.1 g/dL (3.4-5.0) Albumin/Globulin Ratio 0.8 (1.0-1.7) O2 Saturation 97 % (92-99) Arterial Blood pH 7.48 (7.35-7.45) Arterial Blood pCO2 at Patient Temp 29 mmHg (35-46) Arterial Blood pO2 at Patient Temp 95 mmHg (65-108) Arterial Blood HCO3 21 mmol/L (21-28) Arterial Blood Base Excess -2 mmol/L (-3-3) FiO2 50 Medications Active Scripts Medications Dose Route/Sig Max Daily Dose Days Date Category Aspir 81 (Aspirin) 81 Mg Tablet.dr 81 Mg PO DAILY 06/08/14 Reported Atorvastatin Calcium 10 Mg Tablet 1 Tab PO DAILY 03/10/14 Reported Aspirin 81 Mg Tab.chew 1 Tab PO DAILY 01/29/14 Reported Avodart (Dutasteride) 0.5 Mg Capsule 1 Cap PO DAILY 01/29/14 Reported Comments cxr reviewed, Cardiomegaly is unchanged. Bipolar cardiac pacing device is noted. Endotracheal tube is appropriately positioned above the mala. Patchy pulmonary infiltrates in the lungs persist but appear minimally improved. Bilateral pleural effusions are seen. Impression . ACUTE RESP FAILURE ASPIRATION PNEUMONIA S/P SEE OP NOTE Laparoscopic repair of large paraesophageal hernia, MELENA ARF ABNL CXR Plan . CONT VENT SUPPORT, VENT SETTING REVIEWED, NOT READY FOR SBT BROCH /, fu studies ANTIBX add bronchodilator DISCUSSED W RN, RT, PATIENT'S KORIMARINO MD Nov 23, 2016 11:04
--- NOTE | 2016-11-23 11:28 | PDOC ---
Objective: Objective: D/w RN, reviewed other notes. Had bronch yesterday, no note available yet. Vital Signs: Vital Signs Date Time Temp Pulse Resp B/P (MAP) Pulse Ox O2 Delivery O2 Flow Rate FiO2 11/23/16 11:00 62 19 87/43 (58) 95 Ventilator 11/23/16 08:00 98.1 98.1 Labs: Laboratory Tests Test 11/23/16 05:00 11/23/16 08:10 White Blood Count 13.8 x10^3/uL Red Blood Count 2.51 x10^6/uL Hemoglobin 8.6 g/dL Hematocrit 24.8 % Mean Corpuscular Volume 99 fL Mean Corpuscular Hemoglobin 34 pg Mean Corpuscular Hemoglobin Concent 35 g/dL Red Cell Distribution Width 13.3 % Platelet Count 104 x10^3/uL Neutrophils (%) (Auto) 91 % Lymphocytes (%) (Auto) 2 % Monocytes (%) (Auto) 7 % Eosinophils (%) (Auto) 0 % Basophils (%) (Auto) 0 % Neutrophils # (Auto) 12.5 x10^3uL Lymphocytes # (Auto) 0.3 x10^3/uL Monocytes # (Auto) 1.0 x10^3/uL Eosinophils # (Auto) 0.0 x10^3/uL Basophils # (Auto) 0.0 x10^3/uL Sodium Level 147 mmol/L Potassium Level 3.8 mmol/L Chloride Level 115 mmol/L Carbon Dioxide Level 23 mmol/L Anion Gap 9 Blood Urea Nitrogen 32 mg/dL Creatinine 1.0 mg/dL Estimated GFR (Cockcroft-Gault) 71.0 BUN/Creatinine Ratio 32 Glucose Level 137 mg/dL Calcium Level 8.5 mg/dL Total Bilirubin 0.6 mg/dL Aspartate Amino Transf (AST/SGOT) 25 U/L Alanine Aminotransferase (ALT/SGPT) 27 U/L Alkaline Phosphatase 37 U/L Total Protein 4.7 g/dL Albumin 2.1 g/dL Albumin/Globulin Ratio 0.8 O2 Saturation 97 % Arterial Blood pH 7.48 Arterial Blood pCO2 at Patient Temp 29 mmHg Arterial Blood pO2 at Patient Temp 95 mmHg Arterial Blood HCO3 21 mmol/L Arterial Blood Base Excess -2 mmol/L FiO2 50 Imaging: CXR 11/23/16 IMPRESSION: Minimal improvement. No new finding seen. PE: GEN: NAD LUNGS: vent HEART: RRR ABD: G tube NEURO/PSYCH: sedated A/P: Atypical paraesophageal hernia, s/p repair/sleeve gastrectomy Resp failure -- Other per Dr. Mendoza. Patient seen/examined. Continue post-op care. ANGELA SCHNEIDER Nov 23, 2016 11:28 WILBERTO MENDOZA MD Nov 23, 2016 15:22
--- NOTE | 2016-11-23 13:40 | PATHOLOGY ---
PATHOLOGY REPORT * * * * * * * * FINAL DIAGNOSIS: Segment of stomach, lateral greater curvature partial gastrectomy: - Focal acute gastritis with focal superficial mucosal erosion and shallow ulceration. - Congestion and focal recent hemorrhage of gastric mucosa, submucosa, and muscular wall with focal marked thinning of gastric muscular wall. COMMENT: There is no evidence of malignancy. (JPM:[email or web address]; 11/23/2016) REPORT ELECTRONICALLY SIGNED BY: Cale Kennedy M.D. DATE/TIME: 11/23/2016 13:39 * * * * * * * * GROSS PATHOLOGY: The specimen is received in formalin labeled "Jae Jefferson, left greater curvature stomach". Received is a partial gastrectomy specimen with a stapled margin of resection measuring 14.3 x 5.2 x 1.5 cm in greatest dimensions. The serosal surface is pink-asher to blue-asher in appearance. Opening the specimen reveals a light padgett, granular-appearing mucosa with minimal architectural folding and a moderate amount of adherent red-brown material. No distinct nodules or lesions are noted grossly. The specimen is submitted representatively in cassettes A1 through A3. (CAA; 11/22/2016) INITIAL CPT CODE(S): A; 34802 Professional services performed by [facility] at [address] [address] Technical services performed by [facility] at [address] [place] [address], [facility] [address] [address]. SPECIMEN(S) RECEIVED: A.Lateral greater curvature stomach CLINICAL HISTORY: GI bleed PATIENT: JAE JEFFERSON /AGE: [id number] [phone] (Age: 86) PATIENT #: [id number] ALT CASE #: SPECIMEN COLLECTION DATE: 11/21/2016 SPECIMEN RECEIVED DATE: 11/21/2016 [facility] - [id number] [place] [address] - PHONE: [phone] * * * END OF REPORT * * *
[2016-11-23] MEDS: IPRATRPIUM/ALBUTEROL 0.5/2.5MG 3 ML NEBU. NEB SCH ×2 (15:55→19:42)
[2016-11-23] MEDS ORDERED: AMINO AC 3%/ELECTROLYTE/GLYCER 1,000 ML IV SCH (16:15)
[2016-11-23] MEDS: ATORVASTATIN CALCIUM 10 MG TABLET. PO SCH (20:45)
[2016-11-23] MEDS: AMINO AC 3%/ELECTROLYTE/GLYCER 1,000 ML IV SCH (20:45)
[2016-11-24] VITALS (25 sets, daily range): BP systolic 93–149; BP diastolic 43–87
[2016-11-24] MEDS: POTASSIUM CL 40MEQ D5-0.45NACL 1,000 ML IV SCH ×2 (02:49→13:53)
[2016-11-24] MEDS: fentaNYL PF VIAL 100 MCG/2 ML VIAL IV PRN (02:49)
[2016-11-24] MEDS: PIPERACILLIN/TAZOBACTAM 3.375 GM in IV NORMAL SALINE 50ML 50 ML IV SCH ×4 (05:37→23:57)
[2016-11-24] MEDS: CHLORHEXIDINE 0.12% 15 ML MOUTHWASH. MM SCH ×2 (07:59→21:03)
[2016-11-24] MEDS: FAMOTIDINE 20 MG/2 ML VIAL IVP SCH ×2 (08:00→21:04)
[2016-11-24] MEDS: AMINO AC 3%/ELECTROLYTE/GLYCER 1,000 ML IV SCH (08:00)
[2016-11-24] MEDS: IPRATRPIUM/ALBUTEROL 0.5/2.5MG 3 ML NEBU. NEB SCH ×4 (08:40→19:38)
[2016-11-24 09:02] LABS: HCO3 ABG 21 mmol/L (21-28); PCO2 ABG 29 mmHg (35-46); PH ABG 7.48 (7.35-7.45); PO2 ABG 78 mmHg (65-108); SAT O2 ABG 96 % (92-99)
[2016-11-24 09:04] LABS: FIO2 ABG 40
--- NOTE | 2016-11-24 09:14 | PDOC ---
G I PROGRESS NOTE Reason for Follow-up Paraesophageal hernia/post-gastrectomy, gastropexy Subjective Sedated on ventilator. Physical Exam Lungs with coarse sounds. RRR Abdomen soft, tubes. No clear bowel sounds. Review of Relevant I have reviewed the following items cordell (where applicable) has been applied. Labs Laboratory Tests Test 11/23/16 05:00 11/23/16 08:10 11/24/16 08:00 White Blood Count 13.8 x10^3/uL (4.0-11.0) Red Blood Count 2.51 x10^6/uL (4.30-5.70) Hemoglobin 8.6 g/dL (13.0-17.5) Hematocrit 24.8 % (39.0-53.0) Mean Corpuscular Volume 99 fL (79-100) Mean Corpuscular Hemoglobin 34 pg (25-35) Mean Corpuscular Hemoglobin Concent 35 g/dL (31-37) Red Cell Distribution Width 13.3 % (11.5-14.5) Platelet Count 104 x10^3/uL (140-400) Neutrophils (%) (Auto) 91 % (31-73) Lymphocytes (%) (Auto) 2 % (24-48) Monocytes (%) (Auto) 7 % (0-9) Eosinophils (%) (Auto) 0 % (0-3) Basophils (%) (Auto) 0 % (0-3) Neutrophils # (Auto) 12.5 x10^3uL (1.8-7.7) Lymphocytes # (Auto) 0.3 x10^3/uL (1.0-4.8) Monocytes # (Auto) 1.0 x10^3/uL (0.0-1.1) Eosinophils # (Auto) 0.0 x10^3/uL (0.0-0.7) Basophils # (Auto) 0.0 x10^3/uL (0.0-0.2) Sodium Level 147 mmol/L (136-145) Potassium Level 3.8 mmol/L (3.5-5.1) Chloride Level 115 mmol/L (98-107) Carbon Dioxide Level 23 mmol/L (21-32) Anion Gap 9 (6-14) Blood Urea Nitrogen 32 mg/dL (8-26) Creatinine 1.0 mg/dL (0.7-1.3) Estimated GFR (Cockcroft-Gault) 71.0 BUN/Creatinine Ratio 32 (6-20) Glucose Level 137 mg/dL (70-99) Calcium Level 8.5 mg/dL (8.5-10.1) Total Bilirubin 0.6 mg/dL (0.2-1.0) Aspartate Amino Transf (AST/SGOT) 25 U/L (15-37) Alanine Aminotransferase (ALT/SGPT) 27 U/L (16-63) Alkaline Phosphatase 37 U/L (46-116) Total Protein 4.7 g/dL (6.4-8.2) Albumin 2.1 g/dL (3.4-5.0) Albumin/Globulin Ratio 0.8 (1.0-1.7) O2 Saturation 97 % (92-99) 96 % (92-99) Arterial Blood pH 7.48 (7.35-7.45) 7.48 (7.35-7.45) Arterial Blood pCO2 at Patient Temp 29 mmHg (35-46) 29 mmHg (35-46) Arterial Blood pO2 at Patient Temp 95 mmHg (65-108) 78 mmHg (65-108) Arterial Blood HCO3 21 mmol/L (21-28) 21 mmol/L (21-28) Arterial Blood Base Excess -2 mmol/L (-3-3) -2 mmol/L (-3-3) FiO2 50 40 Laboratory Tests Test 11/24/16 08:00 O2 Saturation 96 % (92-99) Arterial Blood pH 7.48 (7.35-7.45) Arterial Blood pCO2 at Patient Temp 29 mmHg (35-46) Arterial Blood pO2 at Patient Temp 78 mmHg (65-108) Arterial Blood HCO3 21 mmol/L (21-28) Arterial Blood Base Excess -2 mmol/L (-3-3) FiO2 40 Microbiology 11/22/16 Gram Stain - Final, Complete 11/19/16 Urine Culture - Final, Complete 11/19/16 Urine Culture Result 1 (CHAVA) - Final, Complete ABG's stable on FIO2 40. Other labs pending. Medications Current Medications Sodium Chloride 1,000 ml @ 1,000 mls/hr 1X ONCE IV Last administered on t 20:55; Start 11/19/16 at 20:45; Stop 11/19/16 at 21:44; Status DC Famotidine (Pepcid) 40 mg 1X ONCE IVP Last administered on 11/19/16 21:54; Start 11/19/16 at 21:30; Stop 11/19/16 at 21:31; Status DC Ondansetron HCl (Zofran) 4 mg PRN Q8HRS PRN IV NAUSEA/VOMITING Last administered on 11/19/16 21:54; Start 11/19/16 at 21:45; Stop 11/20/16 at 10:44 ; Status DC Morphine Sulfate 2 mg PRN Q2HR PRN IV PAIN; Start 11/19/16 at 21:45; Stop 11/20 at 21:44; Status DC Sodium Chloride 1,000 ml @ 110 mls/hr Q9H6M IV Last administered on 11/20/16 17:53; Start 11/19/16 at 21:41; Stop 11/20/16 at 21:40; Status DC Ondansetron HCl (Zofran) 4 mg PRN Q6HRS PRN IV NAUSEA/VOMITING; Start 11/20/16 at 10:42; Stop 11/21/16 at 10:41; Status DC Famotidine (Pepcid) 20 mg BID IVP Last administered on 11/24/16 08:00; Start 11/20/16 at 11:00 Atorvastatin Calcium (Lipitor) 10 mg QHS PO ; Start 11/20/16 at 21:00 Dutasteride (Avodart) 0.5 mg DAILY PO ; Start 11/20/16 at 11:00 Labetalol HCl (Normodyne) 10 mg PRN Q2HR PRN IVP HYPERTENSION, SEE COMMENTS; Start 11/20/16 at 10:45 Acetaminophen (Tylenol) 500 mg PRN Q6HRS PRN PO MILD PAIN / TEMP; Start at 10:45 Ondansetron HCl (Zofran) 4 mg PRN Q6HRS PRN IV NAUSEA/VOMITING; Start 11/21/16 at 07:00; Stop 11/22/16 at 06:59; Status DC Fentanyl Citrate (Fentanyl 2ml Vial) 25 mcg PRN Q5MIN PRN IV MILD PAIN; Start 11/21/16 at 07:00; Stop 11/22/16 at 06:59; Status DC Fentanyl Citrate (Fentanyl 2ml Vial) 50 mcg PRN Q5MIN PRN IV MODERATE PAIN; Start 11/21/16 at 07:00; Stop 11/22/16 at 06:59; Status DC Morphine Sulfate 1 mg PRN Q10MIN PRN IV SEVERE PAIN; Start 11/21/16 at 07:00; Stop 11/22/16 at 06:59; Status DC Ringer's Solution 1,000 ml @ 30 mls/hr Q24H IV ; Start 11/21/16 at 07:00; Stop 11/21/16 at 18:59; Status DC Lidocaine HCl 2 ml PRN 1X PRN ID PRIOR TO IV START; Start 11/21/16 at 07:00; Stop 11/22/16 at 06:59; Status DC Hydromorphone HCl (Dilaudid) 0.5 mg PRN Q10MIN PRN IV SEV PAIN, Second choice; Start 11/21/16 at 07:00; Stop 11/22/16 at 06:59; Status DC Prochlorperazine Edisylate (Compazine) 5 mg PACU PRN PRN IV NAUSEA, MRX1; Start 11/21/16 at 07:00; Stop 11/22/16 at 06:59; Status DC Hydralazine HCl (Apresoline) 10 mg PRN Q4HRS PRN IVP ELEVATED BP, SEE COMMENTS ; Start 11/20/16 at 15:30 Propofol 20 ml @ As Directed STK-MED ONCE IV ; Start 11/21/16 at 07:20; Stop at 07:21; Status DC Lidocaine HCl (Lidocaine Pf 2% Vial) 5 ml STK-MED ONCE .ROUTE ; Start 11/21/16 at 07:20; Stop 11/21/16 at 07:21; Status DC Ondansetron HCl (Zofran) 4 mg STK-MED ONCE .ROUTE ; Start 11/21/16 at 07:20; Stop 11/21/16 at 07:21; Status DC Dexamethasone Sodium Phosphate (Decadron) 20 mg STK-MED ONCE .ROUTE ; Start at 07:20; Stop 11/21/16 at 07:21; Status DC Phenylephrine HCl 1 mg STK-MED ONCE IV ; Start 11/21/16 at 07:21; Stop 11/21/16 at 07:22; Status DC Ephedrine Sulfate 50 mg STK-MED ONCE IV ; Start 11/21/16 at 07:21; Stop at 07:22; Status DC Fentanyl Citrate (Fentanyl 5ml Vial) 250 mcg STK-MED ONCE .ROUTE ; Start at 07:21; Stop 11/21/16 at 07:22; Status DC Rocuronium Polk (Zemuron) 50 mg STK-MED ONCE .ROUTE ; Start 11/21/16 at 07:22 ; Stop 11/21/16 at 07:23; Status DC Famotidine (Pepcid) 20 mg STK-MED ONCE .ROUTE ; Start 11/21/16 at 07:23; Stop at 07:24; Status DC Cellulose 1 each STK-MED ONCE .ROUTE Last administered on 11/21/16 10:29; Start 11/21/16 at 07:33; Stop 11/21/16 at 07:34; Status DC Bupivacaine HCl/ Epinephrine Bitart (Marcaine-Epi 0.5%-[id number]) 50 ml STK-MED ONCE .ROUTE Last administered on 11/21/16 08:43; Start 11/21/16 at 07:34; Stop 11/21/16 at 07:35; Status DC Cefazolin Sodium/ Dextrose 50 ml @ 100 mls/hr 1X PREOP ONCE IV Last administered on 11/21/16 08:25; Start 11/21/16 at 07:37; Stop 11/21/16 at 08:06 ; Status DC Succinylcholine Chloride (Anectine) 200 mg STK-MED ONCE .ROUTE ; Start 11/21/16 at 07:59; Stop 11/21/16 at 08:00; Status DC Sevoflurane (Ultane) 90 ml STK-MED ONCE IH ; Start 11/21/16 at 09:24; Stop 11/21 at 09:25; Status DC Rocuronium Polk (Zemuron) 50 mg STK-MED ONCE .ROUTE ; Start 11/21/16 at 09:25 ; Stop 11/21/16 at 09:26; Status DC Cellulose 1 each STK-MED ONCE .ROUTE ; Start 11/21/16 at 10:11; Stop 11/21/16 at 10:12; Status DC Sodium Bicarbonate 50 meq STK-MED ONCE .ROUTE ; Start 11/21/16 at 10:34; Stop at 10:35; Status DC Rocuronium Polk (Zemuron) 50 mg STK-MED ONCE .ROUTE ; Start 11/21/16 at 11:00 ; Stop 11/21/16 at 11:01; Status DC Sevoflurane (Ultane) 90 ml STK-MED ONCE IH ; Start 11/21/16 at 12:46; Stop 11/21 at 12:47; Status DC Piperacillin Sod/ Tazobactam Sod 3.375 gm/Sodium Chloride 50 ml @ 100 mls/hr Q6HRS IV Last administered on 11/24/16 05:37; Start 11/21/16 at 14:00 Fentanyl Citrate (Fentanyl 2ml Vial) 25 mcg PRN Q2HR PRN IV PAIN Last administered on 11/24/16 02:49; Start 11/21/16 at 13:30 Fentanyl Citrate (Fentanyl 2ml Vial) 50 mcg PRN Q2HR PRN IV PAIN Last administered on 11/23/16 09:50; Start 11/21/16 at 13:30 Propofol 100 ml @ 0 mls/hr CONT PRN IV PER PROTOCOL Last administered on 22:06; Start 11/21/16 at 13:30 Fentanyl Citrate (Fentanyl 2ml Vial) 25 mcg PRN Q1HR PRN IV COMM; Start at 13:30 Fentanyl Citrate (Fentanyl 2ml Vial) 50 mcg PRN Q1HR PRN IV COMM; Start at 13:30 Chlorhexidine Gluconate (Peridex) 15 ml BID MM Last administered on 11/24/16 07:59; Start 11/21/16 at 21:00 Potassium Chloride/Dextrose/ Sod Cl 1,000 ml @ 100 mls/hr Q10H IV Last administered on 11/24/16 02:49; Start 11/21/16 at 15:00 Albuterol/ Ipratropium (Duoneb) 3 ml RTQID NEB Last administered on 11/24/16 08:40; Start 11/23/16 at 16:00 Amino Acids/ Glycerin/ Electrolytes 1,000 ml @ 80 mls/hr [id number] IV ; Start at 16:15; Stop 11/23/16 at 18:21; Status DC Amino Acids/ Glycerin/ Electrolytes 1,000 ml @ 80 mls/hr [id number] IV Last administered on 11/24/16t 08:00; Start 11/23/16 at 21:00 Active Scripts Active Reported Aspir 81 (Aspirin) 81 Mg Tablet.dr 81 Mg PO DAILY Atorvastatin Calcium 10 Mg Tablet 1 Tab PO DAILY Aspirin 81 Mg Tab.chew 1 Tab PO DAILY Avodart (Dutasteride) 0.5 Mg Capsule 1 Cap PO DAILY Vitals/I & O Vital Sign - Last 24 Hours 11/23/16 11/23/16 11/23/16 11/23/16 09:40 09:50 10:00 10:15 Pulse 81 Resp 29 22 20 B/P (MAP) 105/49 (67) Pulse Ox 95 95 93 93 O2 Delivery Ventilator Ventilator Ventilator Ventilator 11/23/16 11/23/16 11/23/16 11/23/16 11:00 11:35 12:00 12:00 Pulse 62 69 Resp 19 B/P (MAP) 87/43 (58) Pulse Ox 95 97 O2 Delivery Ventilator Ventilator Mechanical Ventilator 11/23/16 11/23/16 11/23/16 11/23/16 12:00 13:00 13:51 14:00 Temp 99.4 99.4 Pulse 66 68 65 Resp 20 22 21 B/P (MAP) 139/61 (87) 118/50 (72) 119/50 (73) Pulse Ox 97 96 97 97 O2 Delivery Ventilator Ventilator Ventilator Ventilator 11/23/16 11/23/16 11/23/16 11/23/16 15:00 15:56 16:00 16:00 Pulse 63 71 Resp 20 B/P (MAP) 110/48 (68) Pulse Ox 97 91 O2 Delivery Ventilator Ventilator Mechanical Ventilator 11/23/16 11/23/16 11/23/16 11/23/16 16:00 17:00 18:00 18:08 Temp 100.1 100.1 Pulse 70 64 74 Resp 20 21 B/P (MAP) 135/60 (85) 118/50 (72) 120/50 (73) Pulse Ox 94 96 95 96 O2 Delivery Ventilator Ventilator Ventilator Ventilator 11/23/16 11/23/16 11/23/16 11/23/16 19:00 19:36 19:41 19:43 Pulse 70 68 Resp 20 B/P (MAP) 129/54 (79) 118/50 (72) Pulse Ox 96 98 O2 Delivery Ventilator Mechanical Ventilator Ventilator 11/23/16 11/23/16 11/23/16 11/23/16 20:00 21:00 21:15 22:00 Temp 100.6 100.6 Pulse 69 65 61 Resp 20 20 20 B/P (MAP) 134/54 (80) 114/50 (71) 100/41 (60) Pulse Ox 98 97 98 96 O2 Delivery Ventilator Ventilator Ventilator Ventilator 11/23/16 11/23/16 11/23/16 11/23/16 23:00 23:52 23:59 23:59 Pulse 60 62 Resp 20 B/P (MAP) 97/43 (61) 124/51 (75) Pulse Ox 96 98 O2 Delivery Ventilator Ventilator Mechanical Ventilator 11/24/16 11/24/16 11/24/16 11/24/16 00:00 01:00 02:00 02:10 Temp 99.6 99.6 Pulse 62 60 60 Resp 22 20 20 B/P (MAP) 124/51 (75) 95/47 (63) 109/48 (68) Pulse Ox 96 95 96 98 O2 Delivery Ventilator Ventilator Ventilator Ventilator 11/24/16 11/24/16 11/24/16 11/24/16 03:00 03:43 03:45 04:00 Temp 98.3 98.3 Pulse 60 60 60 Resp 20 20 B/P (MAP) 95/43 (60) 93/43 (60) 129/58 (81) Pulse Ox 96 99 O2 Delivery Ventilator Mechanical Ventilator Ventilator 11/24/16 11/24/16 11/24/16 11/24/16 04:10 05:00 05:49 06:00 Pulse 60 67 Resp 20 22 B/P (MAP) 116/54 (74) 146/68 (94) Pulse Ox 98 97 98 97 O2 Delivery Ventilator Ventilator Ventilator Ventilator 11/24/16 11/24/16 11/24/16 11/24/16 07:00 08:00 08:00 08:00 Temp 98.8 98.8 Pulse 60 60 64 Resp 24 20 B/P (MAP) 128/54 (78) 114/50 (71) 123/52 (75) Pulse Ox 98 97 O2 Delivery Ventilator Mechanical Ventilator O2 Flow Rate 2.0 2.0 11/24/16 08:40 Pulse Ox 98 O2 Delivery Ventilator Intake and Output 11/23/16 11/23/16 11/24/16 15:00 23:00 07:00 Intake Total 70 ml 1233 ml 1934 ml Output Total 455 ml 473 ml 338 ml Balance -385 ml 760 ml 1596 ml Problem List Problems Medical Problems: (1) Upper GI bleeding Status: Acute Assessment Post op gastropexy/sleeve gastrectomy Respiratory failure/aspiration Plan of Care: Continue current Tx, Mgmt Plan of Care Note Will follow. WILBERTO ROBERTS MD Nov 24, 2016 09:14
--- NOTE | 2016-11-24 09:37 | RAD ---
Indication respiratory failure. A single view of the chest was obtained. Comparison is made to a study one day earlier. Heart size and pulmonary vessels are unchanged. Patchy infiltrates persist and appear similar. Bilateral pleural effusions are similar. Overall a significant change is not seen. Bipolar cardiac pacing device is noted. Endotracheal tube is appropriately positioned above the mala. IMPRESSION: No significant change since yesterday's study
--- NOTE | 2016-11-24 10:39 | PDOC ---
PULMONARY PROGRESS NOTES Subjective ON VENT, sedated, off sedation, agitated, has small ett secretion Vitals Vital Signs Date Time Temp Pulse Resp B/P (MAP) Pulse Ox O2 Delivery O2 Flow Rate FiO2 11/24/16 10:00 63 22 115/62 (79) 98 Ventilator 11/24/16 08:00 2.0 11/24/16 08:00 98.8 98.8 Comments ros discussed w rn, as mentioned as above, other sys otherwise neg HEENT: Other (nc at perrl, orally intubated, nose clear, neck, no thyromegaly, no lap) Lungs: Crackles Cardiovascular: S1, S2 Abdomen: Soft, Non-tender, Other (no mass) Extremities: No Edema Skin: Warm Labs Laboratory Tests Test 11/23/16 05:00 11/23/16 08:10 11/24/16 08:00 White Blood Count 13.8 x10^3/uL (4.0-11.0) Red Blood Count 2.51 x10^6/uL (4.30-5.70) Hemoglobin 8.6 g/dL (13.0-17.5) Hematocrit 24.8 % (39.0-53.0) Mean Corpuscular Volume 99 fL (79-100) Mean Corpuscular Hemoglobin 34 pg (25-35) Mean Corpuscular Hemoglobin Concent 35 g/dL (31-37) Red Cell Distribution Width 13.3 % (11.5-14.5) Platelet Count 104 x10^3/uL (140-400) Neutrophils (%) (Auto) 91 % (31-73) Lymphocytes (%) (Auto) 2 % (24-48) Monocytes (%) (Auto) 7 % (0-9) Eosinophils (%) (Auto) 0 % (0-3) Basophils (%) (Auto) 0 % (0-3) Neutrophils # (Auto) 12.5 x10^3uL (1.8-7.7) Lymphocytes # (Auto) 0.3 x10^3/uL (1.0-4.8) Monocytes # (Auto) 1.0 x10^3/uL (0.0-1.1) Eosinophils # (Auto) 0.0 x10^3/uL (0.0-0.7) Basophils # (Auto) 0.0 x10^3/uL (0.0-0.2) Sodium Level 147 mmol/L (136-145) Potassium Level 3.8 mmol/L (3.5-5.1) Chloride Level 115 mmol/L (98-107) Carbon Dioxide Level 23 mmol/L (21-32) Anion Gap 9 (6-14) Blood Urea Nitrogen 32 mg/dL (8-26) Creatinine 1.0 mg/dL (0.7-1.3) Estimated GFR (Cockcroft-Gault) 71.0 BUN/Creatinine Ratio 32 (6-20) Glucose Level 137 mg/dL (70-99) Calcium Level 8.5 mg/dL (8.5-10.1) Total Bilirubin 0.6 mg/dL (0.2-1.0) Aspartate Amino Transf (AST/SGOT) 25 U/L (15-37) Alanine Aminotransferase (ALT/SGPT) 27 U/L (16-63) Alkaline Phosphatase 37 U/L (46-116) Total Protein 4.7 g/dL (6.4-8.2) Albumin 2.1 g/dL (3.4-5.0) Albumin/Globulin Ratio 0.8 (1.0-1.7) O2 Saturation 97 % (92-99) 96 % (92-99) Arterial Blood pH 7.48 (7.35-7.45) 7.48 (7.35-7.45) Arterial Blood pCO2 at Patient Temp 29 mmHg (35-46) 29 mmHg (35-46) Arterial Blood pO2 at Patient Temp 95 mmHg (65-108) 78 mmHg (65-108) Arterial Blood HCO3 21 mmol/L (21-28) 21 mmol/L (21-28) Arterial Blood Base Excess -2 mmol/L (-3-3) -2 mmol/L (-3-3) FiO2 50 40 Laboratory Tests Test 11/24/16 08:00 O2 Saturation 96 % (92-99) Arterial Blood pH 7.48 (7.35-7.45) Arterial Blood pCO2 at Patient Temp 29 mmHg (35-46) Arterial Blood pO2 at Patient Temp 78 mmHg (65-108) Arterial Blood HCO3 21 mmol/L (21-28) Arterial Blood Base Excess -2 mmol/L (-3-3) FiO2 40 Medications Active Scripts Medications Dose Route/Sig Max Daily Dose Days Date Category Aspir 81 (Aspirin) 81 Mg Tablet.dr 81 Mg PO DAILY 06/08/14 Reported Atorvastatin Calcium 10 Mg Tablet 1 Tab PO DAILY 03/10/14 Reported Aspirin 81 Mg Tab.chew 1 Tab PO DAILY 01/29/14 Reported Avodart (Dutasteride) 0.5 Mg Capsule 1 Cap PO DAILY 01/29/14 Reported Comments cxr reviewed, Cardiomegaly is unchanged. Bipolar cardiac pacing device is noted. Endotracheal tube is appropriately positioned above the mala. Patchy pulmonary infiltrates in the lungs persist but appear minimally improved. Bilateral pleural effusions are seen. Impression . ACUTE RESP FAILURE ASPIRATION PNEUMONIA S/P SEE OP NOTE Laparoscopic repair of large paraesophageal hernia, MELENA ARF ABNL CXR Plan . CONT VENT SUPPORT, VENT SETTING REVIEWED, sbt when awake BROCH 11/04, fu studies ANTIBX bronchodilator elevate hob pepcid, scds for prophylaxis DISCUSSED W RN, RT, MARINO SHEIKH MD Nov 24, 2016 10:39
--- NOTE | 2016-11-24 12:51 | PDOC ---
SURGICAL PROGRESS NOTE Subjective [place] POD 3 partial gastrectomy intubated off sedation for trial opens eyes Vital Signs Vital Signs Date Time Temp Pulse Resp B/P (MAP) Pulse Ox O2 Delivery O2 Flow Rate FiO2 11/24/16 12:00 99.9 74 30 133/60 (84) 100 Ventilator 99.9 11/24/16 08:00 2.0 I&O Intake and Output 11/24/16 07:00 Intake Total 3237 ml Output Total 1266 ml Balance 1971 ml IV Total 3217 ml Other 20 ml Output Urine Total 1066 ml Drainage Total 200 ml PATIENT HAS A KIDD: Yes Abdomen: Other (dressings dry and intact) Labs Laboratory Tests Test 11/23/16 05:00 11/23/16 08:10 11/24/16 08:00 White Blood Count 13.8 x10^3/uL (4.0-11.0) Red Blood Count 2.51 x10^6/uL (4.30-5.70) Hemoglobin 8.6 g/dL (13.0-17.5) Hematocrit 24.8 % (39.0-53.0) Mean Corpuscular Volume 99 fL (79-100) Mean Corpuscular Hemoglobin 34 pg (25-35) Mean Corpuscular Hemoglobin Concent 35 g/dL (31-37) Red Cell Distribution Width 13.3 % (11.5-14.5) Platelet Count 104 x10^3/uL (140-400) Neutrophils (%) (Auto) 91 % (31-73) Lymphocytes (%) (Auto) 2 % (24-48) Monocytes (%) (Auto) 7 % (0-9) Eosinophils (%) (Auto) 0 % (0-3) Basophils (%) (Auto) 0 % (0-3) Neutrophils # (Auto) 12.5 x10^3uL (1.8-7.7) Lymphocytes # (Auto) 0.3 x10^3/uL (1.0-4.8) Monocytes # (Auto) 1.0 x10^3/uL (0.0-1.1) Eosinophils # (Auto) 0.0 x10^3/uL (0.0-0.7) Basophils # (Auto) 0.0 x10^3/uL (0.0-0.2) Sodium Level 147 mmol/L (136-145) Potassium Level 3.8 mmol/L (3.5-5.1) Chloride Level 115 mmol/L (98-107) Carbon Dioxide Level 23 mmol/L (21-32) Anion Gap 9 (6-14) Blood Urea Nitrogen 32 mg/dL (8-26) Creatinine 1.0 mg/dL (0.7-1.3) Estimated GFR (Cockcroft-Gault) 71.0 BUN/Creatinine Ratio 32 (6-20) Glucose Level 137 mg/dL (70-99) Calcium Level 8.5 mg/dL (8.5-10.1) Total Bilirubin 0.6 mg/dL (0.2-1.0) Aspartate Amino Transf (AST/SGOT) 25 U/L (15-37) Alanine Aminotransferase (ALT/SGPT) 27 U/L (16-63) Alkaline Phosphatase 37 U/L (46-116) Total Protein 4.7 g/dL (6.4-8.2) Albumin 2.1 g/dL (3.4-5.0) Albumin/Globulin Ratio 0.8 (1.0-1.7) O2 Saturation 97 % (92-99) 96 % (92-99) Arterial Blood pH 7.48 (7.35-7.45) 7.48 (7.35-7.45) Arterial Blood pCO2 at Patient Temp 29 mmHg (35-46) 29 mmHg (35-46) Arterial Blood pO2 at Patient Temp 95 mmHg (65-108) 78 mmHg (65-108) Arterial Blood HCO3 21 mmol/L (21-28) 21 mmol/L (21-28) Arterial Blood Base Excess -2 mmol/L (-3-3) -2 mmol/L (-3-3) FiO2 50 40 Laboratory Tests Test 11/24/16 08:00 O2 Saturation 96 % (92-99) Arterial Blood pH 7.48 (7.35-7.45) Arterial Blood pCO2 at Patient Temp 29 mmHg (35-46) Arterial Blood pO2 at Patient Temp 78 mmHg (65-108) Arterial Blood HCO3 21 mmol/L (21-28) Arterial Blood Base Excess -2 mmol/L (-3-3) FiO2 40 I have reviewed the following ABG on trial reviewed Problem List Problems Medical Problems: (1) Upper GI bleeding Status: Acute Assessment/Plan POD 3 partial gastrectomy continue supportive care spoke with his Problems: VERONICA SALGADO MD Nov 24, 2016 12:51
[2016-11-24] MEDS: PROPOFOL 100 ML IV PRN (13:01)
--- NOTE | 2016-11-24 14:19 | PDOC ---
PROGRESS NOTES Chief Complaint Chief Complaint hematemesis ASSESSMENT AND PLAN: 1. UGIB: s/p Laparoscopic repair of large paraesophageal hernia, open partial gastrectomy, placement of gastrostomy with gastropexy, nutrition as per general surgery. Place PICC line, start TPN, monitor CBC and a CMP and L Angela 2. Acute respiratory failure: On mechanical ventilation, off sedation, possible aspiration. Continue Zosyn, , failed SBT today, try tomorrow a.m. 3. Leukocytosis: reactive, 4. Arrhythmia: hx pacer placement 5. Prophylaxis: SCDs; medical anticoag contraindicated, mild thrombocytopenia 6. 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 Monitor History of Present Illness History of Present Illness Off sedation failed SBT No fevers No acute events overnight Vitals Vitals Vital Signs Date Time Temp Pulse Resp B/P (MAP) Pulse Ox O2 Delivery O2 Flow Rate FiO2 11/24/16 14:00 64 26 113/56 (75) 98 Ventilator 11/24/16 12:00 99.9 99.9 11/24/16 08:00 2.0 Physical Exam General: No acute distress, Other (intubated and sedated. ) Heart: Regular rate, Normal S1, Normal S2 Lungs: Crackles Abdomen: Other (dressings dry and intact) Extremities: No clubbing, No cyanosis Skin: No rashes, No breakdown Labs LABS Laboratory Tests Test 11/24/16 08:00 O2 Saturation 96 % (92-99) Arterial Blood pH 7.48 (7.35-7.45) Arterial Blood pCO2 at Patient Temp 29 mmHg (35-46) Arterial Blood pO2 at Patient Temp 78 mmHg (65-108) Arterial Blood HCO3 21 mmol/L (21-28) Arterial Blood Base Excess -2 mmol/L (-3-3) FiO2 40 Assessment and Plan Assessmemt and Plan Problems Medical Problems: (1) Upper GI bleeding Status: Acute Problems: Comment Review of Relevant I have reviewed the following items cordell (where applicable) has been applied. Labs Laboratory Tests Test 11/23/16 05:00 11/23/16 08:10 11/24/16 08:00 White Blood Count 13.8 x10^3/uL (4.0-11.0) Red Blood Count 2.51 x10^6/uL (4.30-5.70) Hemoglobin 8.6 g/dL (13.0-17.5) Hematocrit 24.8 % (39.0-53.0) Mean Corpuscular Volume 99 fL (79-100) Mean Corpuscular Hemoglobin 34 pg (25-35) Mean Corpuscular Hemoglobin Concent 35 g/dL (31-37) Red Cell Distribution Width 13.3 % (11.5-14.5) Platelet Count 104 x10^3/uL (140-400) Neutrophils (%) (Auto) 91 % (31-73) Lymphocytes (%) (Auto) 2 % (24-48) Monocytes (%) (Auto) 7 % (0-9) Eosinophils (%) (Auto) 0 % (0-3) Basophils (%) (Auto) 0 % (0-3) Neutrophils # (Auto) 12.5 x10^3uL (1.8-7.7) Lymphocytes # (Auto) 0.3 x10^3/uL (1.0-4.8) Monocytes # (Auto) 1.0 x10^3/uL (0.0-1.1) Eosinophils # (Auto) 0.0 x10^3/uL (0.0-0.7) Basophils # (Auto) 0.0 x10^3/uL (0.0-0.2) Sodium Level 147 mmol/L (136-145) Potassium Level 3.8 mmol/L (3.5-5.1) Chloride Level 115 mmol/L (98-107) Carbon Dioxide Level 23 mmol/L (21-32) Anion Gap 9 (6-14) Blood Urea Nitrogen 32 mg/dL (8-26) Creatinine 1.0 mg/dL (0.7-1.3) Estimated GFR (Cockcroft-Gault) 71.0 BUN/Creatinine Ratio 32 (6-20) Glucose Level 137 mg/dL (70-99) Calcium Level 8.5 mg/dL (8.5-10.1) Total Bilirubin 0.6 mg/dL (0.2-1.0) Aspartate Amino Transf (AST/SGOT) 25 U/L (15-37) Alanine Aminotransferase (ALT/SGPT) 27 U/L (16-63) Alkaline Phosphatase 37 U/L (46-116) Total Protein 4.7 g/dL (6.4-8.2) Albumin 2.1 g/dL (3.4-5.0) Albumin/Globulin Ratio 0.8 (1.0-1.7) O2 Saturation 97 % (92-99) 96 % (92-99) Arterial Blood pH 7.48 (7.35-7.45) 7.48 (7.35-7.45) Arterial Blood pCO2 at Patient Temp 29 mmHg (35-46) 29 mmHg (35-46) Arterial Blood pO2 at Patient Temp 95 mmHg (65-108) 78 mmHg (65-108) Arterial Blood HCO3 21 mmol/L (21-28) 21 mmol/L (21-28) Arterial Blood Base Excess -2 mmol/L (-3-3) -2 mmol/L (-3-3) FiO2 50 40 Laboratory Tests Test 11/24/16 08:00 O2 Saturation 96 % (92-99) Arterial Blood pH 7.48 (7.35-7.45) Arterial Blood pCO2 at Patient Temp 29 mmHg (35-46) Arterial Blood pO2 at Patient Temp 78 mmHg (65-108) Arterial Blood HCO3 21 mmol/L (21-28) Arterial Blood Base Excess -2 mmol/L (-3-3) FiO2 40 Microbiology 11/24/16 Gram Stain - Final, Complete 11/19/16 Urine Culture - Final, Complete 11/19/16 Urine Culture Result 1 ([facility]) - Final, Complete Medications Current Medications Sodium Chloride 1,000 ml @ 1,000 mls/hr 1X ONCE IV Last administered on 20:55; Start 11/19/16 at 20:45; Stop 11/19/16 at 21:44; Status DC Famotidine (Pepcid) 40 mg 1X ONCE IVP Last administered on 11/19/16 21:54; Start 11/19/16 at 21:30; Stop 11/19/16 at 21:31; Status DC Ondansetron HCl (Zofran) 4 mg PRN Q8HRS PRN IV NAUSEA/VOMITING Last administered on 11/19/16 21:54; Start 11/19/16 at 21:45; Stop 11/20/16 at 10:44 ; Status DC Morphine Sulfate 2 mg PRN Q2HR PRN IV PAIN; Start 11/19/16 at 21:45; Stop 11/20 at 21:44; Status DC Sodium Chloride 1,000 ml @ 110 mls/hr Q9H6M IV Last administered on 11/20/16t 17:53; Start 11/19/16 at 21:41; Stop 11/20/16 at 21:40; Status DC Ondansetron HCl (Zofran) 4 mg PRN Q6HRS PRN IV NAUSEA/VOMITING; Start 11/20/16 at 10:42; Stop 11/21/16 at 10:41; Status DC Famotidine (Pepcid) 20 mg BID IVP Last administered on 11/24/16 08:00; Start 11/20/16 at 11:00 Atorvastatin Calcium (Lipitor) 10 mg QHS PO ; Start 11/20/16 at 21:00 Dutasteride (Avodart) 0.5 mg DAILY PO ; Start 11/20/16 at 11:00 Labetalol HCl (Normodyne) 10 mg PRN Q2HR PRN IVP HYPERTENSION, SEE COMMENTS; Start 11/20/16 at 10:45 Acetaminophen (Tylenol) 500 mg PRN Q6HRS PRN PO MILD PAIN / TEMP; Start at 10:45 Ondansetron HCl (Zofran) 4 mg PRN Q6HRS PRN IV NAUSEA/VOMITING; Start 11/21/16 at 07:00; Stop 11/22/16 at 06:59; Status DC Fentanyl Citrate (Fentanyl 2ml Vial) 25 mcg PRN Q5MIN PRN IV MILD PAIN; Start 11/21/16 at 07:00; Stop 11/22/16 at 06:59; Status DC Fentanyl Citrate (Fentanyl 2ml Vial) 50 mcg PRN Q5MIN PRN IV MODERATE PAIN; Start 11/21/16 at 07:00; Stop 11/22/16 at 06:59; Status DC Morphine Sulfate 1 mg PRN Q10MIN PRN IV SEVERE PAIN; Start 11/21/16 at 07:00; Stop 11/22/16 at 06:59; Status DC Ringer's Solution 1,000 ml @ 30 mls/hr Q24H IV ; Start 11/21/16 at 07:00; Stop 11/21/16 at 18:59; Status DC Lidocaine HCl 2 ml PRN 1X PRN ID PRIOR TO IV START; Start 11/21/16 at 07:00; Stop 11/22/16 at 06:59; Status DC Hydromorphone HCl (Dilaudid) 0.5 mg PRN Q10MIN PRN IV SEV PAIN, Second choice; Start 11/21/16 at 07:00; Stop 11/22/16 at 06:59; Status DC Prochlorperazine Edisylate (Compazine) 5 mg PACU PRN PRN IV NAUSEA, MRX1; Start 11/21/16 at 07:00; Stop 11/22/16 at 06:59; Status DC Hydralazine HCl (Apresoline) 10 mg PRN Q4HRS PRN IVP ELEVATED BP, SEE COMMENTS ; Start 11/20/16 at 15:30 Propofol 20 ml @ As Directed STK-MED ONCE IV ; Start 11/21/16 at 07:20; Stop at 07:21; Status DC Lidocaine HCl (Lidocaine Pf 2% Vial) 5 ml STK-MED ONCE .ROUTE ; Start 11/21/16 at 07:20; Stop 11/21/16 at 07:21; Status DC Ondansetron HCl (Zofran) 4 mg STK-MED ONCE .ROUTE ; Start 11/21/16 at 07:20; Stop 11/21/16 at 07:21; Status DC Dexamethasone Sodium Phosphate (Decadron) 20 mg STK-MED ONCE .ROUTE ; Start at 07:20; Stop 11/21/16 at 07:21; Status DC Phenylephrine HCl 1 mg STK-MED ONCE IV ; Start 11/21/16 at 07:21; Stop 11/21/16 at 07:22; Status DC Ephedrine Sulfate 50 mg STK-MED ONCE IV ; Start 11/21/16 at 07:21; Stop at 07:22; Status DC Fentanyl Citrate (Fentanyl 5ml Vial) 250 mcg STK-MED ONCE .ROUTE ; Start at 07:21; Stop 11/21/16 at 07:22; Status DC Rocuronium [place] (Zemuron) 50 mg STK-MED ONCE .ROUTE ; Start 11/21/16 at 07:22 ; Stop 11/21/16 at 07:23; Status DC Famotidine (Pepcid) 20 mg STK-MED ONCE .ROUTE ; Start 11/21/16 at 07:23; Stop at 07:24; Status DC Cellulose 1 each STK-MED ONCE .ROUTE Last administered on 11/21/16 10:29; Start 11/21/16 at 07:33; Stop 11/21/16 at 07:34; Status DC Bupivacaine HCl/ Epinephrine Bitart (Marcaine-Epi 0.5%-[id number]) 50 ml STK-MED ONCE .ROUTE Last administered on 11/21/16 08:43; Start 11/21/16 at 07:34; Stop 11/21/16 at 07:35; Status DC Cefazolin Sodium/ Dextrose 50 ml @ 100 mls/hr 1X PREOP ONCE IV Last administered on 11/21/16 08:25; Start 11/21/16 at 07:37; Stop 11/21/16 at 08:06 ; Status DC Succinylcholine Chloride (Anectine) 200 mg STK-MED ONCE .ROUTE ; Start 11/21/16 at 07:59; Stop 11/21/16 at 08:00; Status DC Sevoflurane (Ultane) 90 ml STK-MED ONCE IH ; Start 11/21/16 at 09:24; Stop 11/21 at 09:25; Status DC Rocuronium [place] (Zemuron) 50 mg STK-MED ONCE .ROUTE ; Start 11/21/16 at 09:25 ; Stop 11/21/16 at 09:26; Status DC Cellulose 1 each STK-MED ONCE .ROUTE ; Start 11/21/16 at 10:11; Stop 11/21/16 at 10:12; Status DC Sodium Bicarbonate 50 meq STK-MED ONCE .ROUTE ; Start 11/21/16 at 10:34; Stop at 10:35; Status DC Rocuronium [place] (Zemuron) 50 mg STK-MED ONCE .ROUTE ; Start 11/21/16 at 11:00 ; Stop 11/21/16 at 11:01; Status DC Sevoflurane (Ultane) 90 ml STK-MED ONCE IH ; Start 11/21/16 at 12:46; Stop 11/21 at 12:47; Status DC Piperacillin Sod/ Tazobactam Sod 3.375 gm/Sodium Chloride 50 ml @ 100 mls/hr Q6HRS IV Last administered on 11/24/16 11:31; Start 11/21/16 at 14:00 Fentanyl Citrate (Fentanyl 2ml Vial) 25 mcg PRN Q2HR PRN IV PAIN Last administered on 11/24/16 02:49; Start 11/21/16 at 13:30 Fentanyl Citrate (Fentanyl 2ml Vial) 50 mcg PRN Q2HR PRN IV PAIN Last administered on 11/23/16 09:50; Start 11/21/16 at 13:30 Propofol 100 ml @ 0 mls/hr CONT PRN IV PER PROTOCOL Last administered on 13:01; Start 11/21/16 at 13:30 Fentanyl Citrate (Fentanyl 2ml Vial) 25 mcg PRN Q1HR PRN IV COMM; Start at 13:30 Fentanyl Citrate (Fentanyl 2ml Vial) 50 mcg PRN Q1HR PRN IV COMM; Start at 13:30 Chlorhexidine Gluconate (Peridex) 15 ml BID MM Last administered on 11/24/16 07:59; Start 11/21/16 at 21:00 Potassium Chloride/Dextrose/ Sod Cl 1,000 ml @ 100 mls/hr Q10H IV Last administered on 11/24/16 13:53; Start 11/21/16 at 15:00 Albuterol/ Ipratropium (Duoneb) 3 ml RTQID NEB Last administered on 11/24/16 12:44; Start 11/23/16 at 16:00 Amino Acids/ Glycerin/ Electrolytes 1,000 ml @ 80 mls/hr [id number] IV ; Start at 16:15; Stop 11/23/16 at 18:21; Status DC Amino Acids/ Glycerin/ Electrolytes 1,000 ml @ 80 mls/hr [id number] IV Last administered on 11/24/16 08:00; Start 11/23/16 at 21:00; Stop 11/24/16 at 13:45 ; Status DC Active Scripts Active Reported Aspir 81 (Aspirin) 81 Mg Tablet.dr 81 Mg PO DAILY Atorvastatin Calcium 10 Mg Tablet 1 Tab PO DAILY Aspirin 81 Mg Tab.chew 1 Tab PO DAILY Avodart (Dutasteride) 0.5 Mg Capsule 1 Cap PO DAILY Vitals/I & O Vital Sign - Last 24 Hours 11/23/16 11/23/16 11/23/16 11/23/16 15:00 15:56 16:00 16:00 Pulse 63 71 Resp 20 B/P (MAP) 110/48 (68) Pulse Ox 97 91 O2 Delivery Ventilator Ventilator Mechanical Ventilator 11/23/16 11/23/16 11/23/16 11/23/16 16:00 17:00 18:00 18:08 Temp 100.1 100.1 Pulse 70 64 74 Resp 20 22 21 B/P (MAP) 135/60 (85) 118/50 (72) 120/50 (73) Pulse Ox 94 96 95 96 O2 Delivery Ventilator Ventilator Ventilator Ventilator 11/23/16 11/23/16 11/23/16 11/23/16 19:00 19:36 19:41 19:43 Pulse 70 68 Resp 20 B/P (MAP) 129/54 (79) 118/50 (72) Pulse Ox 96 98 O2 Delivery Ventilator Mechanical Ventilator Ventilator 11/23/16 11/23/16 11/23/16 11/23/16 20:00 21:00 21:15 22:00 Temp 100.6 100.6 Pulse 69 65 61 Resp 20 20 20 B/P (MAP) 134/54 (80) 114/50 (71) 100/41 (60) Pulse Ox 98 97 98 96 O2 Delivery Ventilator Ventilator Ventilator Ventilator 11/23/16 11/23/16 11/23/16 11/23/16 23:00 23:52 23:59 23:59 Pulse 60 62 Resp 20 B/P (MAP) 97/43 (61) 124/51 (75) Pulse Ox 96 98 O2 Delivery Ventilator Ventilator Mechanical Ventilator 11/24/16 11/24/16 11/24/16 11/24/16 00:00 01:00 02:00 02:10 Temp 99.6 99.6 Pulse 62 60 60 Resp 22 20 20 B/P (MAP) 124/51 (75) 95/47 (63) 109/48 (68) Pulse Ox 96 95 96 98 O2 Delivery Ventilator Ventilator Ventilator Ventilator 11/24/16 11/24/16 11/24/16 11/24/16 03:00 03:43 03:45 04:00 Temp 98.3 98.3 Pulse 60 60 60 Resp 20 20 B/P (MAP) 95/43 (60) 93/43 (60) 129/58 (81) Pulse Ox 96 99 O2 Delivery Ventilator Mechanical Ventilator Ventilator 11/24/16 11/24/16 11/24/16 11/24/16 04:10 05:00 05:49 06:00 Pulse 60 67 Resp 20 22 B/P (MAP) 116/54 (74) 146/68 (94) Pulse Ox 98 97 98 97 O2 Delivery Ventilator Ventilator Ventilator Ventilator 11/24/16 11/24/16 11/24/16 11/24/16 07:00 08:00 08:00 08:00 Temp 98.8 98.8 Pulse 60 60 64 Resp 24 20 B/P (MAP) 128/54 (78) 114/50 (71) 123/52 (75) Pulse Ox 98 97 O2 Delivery Ventilator Mechanical Ventilator O2 Flow Rate 2.0 2.0 11/24/16 11/24/16 11/24/16 11/24/16 08:40 09:00 10:00 10:15 Pulse 64 63 Resp 24 22 B/P (MAP) 141/74 (96) 115/62 (79) Pulse Ox 98 97 98 97 O2 Delivery Ventilator Ventilator Ventilator 11/24/16 11/24/16 11/24/16 11/24/16 11:00 11:34 12:00 12:00 Temp 99.9 99.9 Pulse 76 74 Resp 30 30 B/P (MAP) 149/87 (107) 133/60 (84) Pulse Ox 97 97 100 O2 Delivery Ventilator Ventilator Mechanical Ventilator Ventilator 11/24/16 11/24/16 11/24/16 12:45 13:00 14:00 Pulse 62 64 Resp 20 26 B/P (MAP) 127/58 (81) 113/56 (75) Pulse Ox 98 98 98 O2 Delivery Ventilator Ventilator Ventilator Intake and Output 11/23/16 11/23/16 11/24/16 15:00 23:00 07:00 Intake Total 70 ml 1233 ml 1934 ml Output Total 455 ml 473 ml 338 ml Balance -385 ml 760 ml 1596 ml ANURADHA HALL MD Nov 24, 2016 14:19
[2016-11-24] MEDS: ATORVASTATIN CALCIUM 10 MG TABLET. PO SCH (21:03)
[2016-11-25] VITALS (23 sets, daily range): BP systolic 100–140; BP diastolic 52–70
[2016-11-25] MEDS: POTASSIUM CL 40MEQ D5-0.45NACL 1,000 ML IV SCH ×3 (01:15→19:00)
[2016-11-25 05:45] LABS: BASO % 0 % (0-3); EOS % 1 % (0-3); HEMATOCRIT 26.3 % (39.0-53.0); HEMOGLOBIN 9.1 g/dL (13.0-17.5); LYMPH # 0.4 x10^3/uL (1.0-4.8); LYMPH % 3 % (24-48); MEAN CORPUSCULAR HEMOGLOBIN 34 pg (25-35); MEAN CORPUSCULAR HGB CONC 35 g/dL (31-37); MEAN CORPUSCULAR VOLUME 99 fL (79-100); MONO % 15 % (0-9); NEUT % 82 % (31-73); PLATELET COUNT 125 x10^3/uL (140-400); RED BLOOD COUNT 2.67 x10^6/uL (4.30-5.70); RED CELL DISTRIBUTION WIDTH 12.9 % (11.5-14.5); WHITE BLOOD COUNT 15.8 x10^3/uL (4.0-11.0)
[2016-11-25] MEDS: PIPERACILLIN/TAZOBACTAM 3.375 GM in IV NORMAL SALINE 50ML 50 ML IV SCH ×4 (05:59→23:54)
[2016-11-25 06:13] LABS: CALCIUM 7.7 mg/dL (8.5-10.1); CREATININE 0.8 mg/dL (0.7-1.3); GFR 91.9; POTASSIUM 4.1 mmol/L (3.5-5.1)
[2016-11-25] MEDS: IPRATRPIUM/ALBUTEROL 0.5/2.5MG 3 ML NEBU. NEB SCH ×4 (08:04→20:14)
[2016-11-25 08:15] LABS: HCO3 ABG 20 mmol/L (21-28); PCO2 ABG 26 mmHg (35-46); PH ABG 7.51 (7.35-7.45); PO2 ABG 91 mmHg (65-108); SAT O2 ABG 97 % (92-99)
[2016-11-25 08:20] LABS: FIO2 ABG 40
[2016-11-25] MEDS: AMINO AC 3%/ELECTROLYTE/GLYCER 1,000 ML IV SCH ×2 (08:22→20:30)
--- NOTE | 2016-11-25 08:24 | PDOC ---
G I PROGRESS NOTE Reason for Follow-up Paraesophageal hernia, post-gastropexy/resection Subjective Off sedation. No real response to questioning, but seems awake. On ventilator. Physical Exam Lungs with coarse sounds. RRR Abdomen soft, still pretty silent. Tubes. Review of Relevant I have reviewed the following items cordell (where applicable) has been applied. Labs Laboratory Tests Test 11/24/16 08:00 11/25/16 05:28 11/25/16 08:00 O2 Saturation 96 % (92-99) 97 % (92-99) Arterial Blood pH 7.48 (7.35-7.45) 7.51 (7.35-7.45) Arterial Blood pCO2 at Patient Temp 29 mmHg (35-46) 26 mmHg (35-46) Arterial Blood pO2 at Patient Temp 78 mmHg (65-108) 91 mmHg (65-108) Arterial Blood HCO3 21 mmol/L (21-28) 20 mmol/L (21-28) Arterial Blood Base Excess -2 mmol/L (-3-3) -2 mmol/L (-3-3) FiO2 40 40 White Blood Count 15.8 x10^3/uL (4.0-11.0) Red Blood Count 2.67 x10^6/uL (4.30-5.70) Hemoglobin 9.1 g/dL (13.0-17.5) Hematocrit 26.3 % (39.0-53.0) Mean Corpuscular Volume 99 fL (79-100) Mean Corpuscular Hemoglobin 34 pg (25-35) Mean Corpuscular Hemoglobin Concent 35 g/dL (31-37) Red Cell Distribution Width 12.9 % (11.5-14.5) Platelet Count 125 x10^3/uL (140-400) Neutrophils (%) (Auto) 82 % (31-73) Lymphocytes (%) (Auto) 3 % (24-48) Monocytes (%) (Auto) 15 % (0-9) Eosinophils (%) (Auto) 1 % (0-3) Basophils (%) (Auto) 0 % (0-3) Neutrophils # (Auto) 12.9 x10^3uL (1.8-7.7) Lymphocytes # (Auto) 0.4 x10^3/uL (1.0-4.8) Monocytes # (Auto) 2.3 x10^3/uL (0.0-1.1) Eosinophils # (Auto) 0.1 x10^3/uL (0.0-0.7) Basophils # (Auto) 0.0 x10^3/uL (0.0-0.2) Sodium Level 144 mmol/L (136-145) Potassium Level 4.1 mmol/L (3.5-5.1) Chloride Level 112 mmol/L (98-107) Carbon Dioxide Level 24 mmol/L (21-32) Anion Gap 8 (6-14) Blood Urea Nitrogen 17 mg/dL (8-26) Creatinine 0.8 mg/dL (0.7-1.3) Estimated GFR (Cockcroft-Gault) 91.9 Glucose Level 112 mg/dL (70-99) Calcium Level 7.7 mg/dL (8.5-10.1) Laboratory Tests Test 11/25/16 05:28 11/25/16 08:00 White Blood Count 15.8 x10^3/uL (4.0-11.0) Red Blood Count 2.67 x10^6/uL (4.30-5.70) Hemoglobin 9.1 g/dL (13.0-17.5) Hematocrit 26.3 % (39.0-53.0) Mean Corpuscular Volume 99 fL (79-100) Mean Corpuscular Hemoglobin 34 pg (25-35) Mean Corpuscular Hemoglobin Concent 35 g/dL (31-37) Red Cell Distribution Width 12.9 % (11.5-14.5) Platelet Count 125 x10^3/uL (140-400) Neutrophils (%) (Auto) 82 % (31-73) Lymphocytes (%) (Auto) 3 % (24-48) Monocytes (%) (Auto) 15 % (0-9) Eosinophils (%) (Auto) 1 % (0-3) Basophils (%) (Auto) 0 % (0-3) Neutrophils # (Auto) 12.9 x10^3uL (1.8-7.7) Lymphocytes # (Auto) 0.4 x10^3/uL (1.0-4.8) Monocytes # (Auto) 2.3 x10^3/uL (0.0-1.1) Eosinophils # (Auto) 0.1 x10^3/uL (0.0-0.7) Basophils # (Auto) 0.0 x10^3/uL (0.0-0.2) Sodium Level 144 mmol/L (136-145) Potassium Level 4.1 mmol/L (3.5-5.1) Chloride Level 112 mmol/L (98-107) Carbon Dioxide Level 24 mmol/L (21-32) Anion Gap 8 (6-14) Blood Urea Nitrogen 17 mg/dL (8-26) Creatinine 0.8 mg/dL (0.7-1.3) Estimated GFR (Cockcroft-Gault) 91.9 Glucose Level 112 mg/dL (70-99) Calcium Level 7.7 mg/dL (8.5-10.1) O2 Saturation 97 % (92-99) Arterial Blood pH 7.51 (7.35-7.45) Arterial Blood pCO2 at Patient Temp 26 mmHg (35-46) Arterial Blood pO2 at Patient Temp 91 mmHg (65-108) Arterial Blood HCO3 20 mmol/L (21-28) Arterial Blood Base Excess -2 mmol/L (-3-3) FiO2 40 Microbiology 11/24/16 Gram Stain - Final, Complete 11/19/16 Urine Culture - Final, Complete 11/19/16 Urine Culture Result 1 ([facility]) - Final, Complete Medications Current Medications Sodium Chloride 1,000 ml @ 1,000 mls/hr 1X ONCE IV Last administered on 20:55; Start 11/19/16 at 20:45; Stop 11/19/16 at 21:44; Status DC Famotidine (Pepcid) 40 mg 1X ONCE IVP Last administered on 11/19/16 21:54; Start 11/19/16 at 21:30; Stop 11/19/16 at 21:31; Status DC Ondansetron HCl (Zofran) 4 mg PRN Q8HRS PRN IV NAUSEA/VOMITING Last administered on 11/19/16 21:54; Start 11/19/16 at 21:45; Stop 11/20/16 at 10:44 ; Status DC Morphine Sulfate 2 mg PRN Q2HR PRN IV PAIN; Start 11/19/16 at 21:45; Stop 11/20 at 21:44; Status DC Sodium Chloride 1,000 ml @ 110 mls/hr Q9H6M IV Last administered on 11/20/16 17:53; Start 11/19/16 at 21:41; Stop 11/20/16 at 21:40; Status DC Ondansetron HCl (Zofran) 4 mg PRN Q6HRS PRN IV NAUSEA/VOMITING; Start 11/20/16 at 10:42; Stop 11/21/16 at 10:41; Status DC Famotidine (Pepcid) 20 mg BID IVP Last administered on 11/24/16 21:04; Start 11/20/16 at 11:00 Atorvastatin Calcium (Lipitor) 10 mg QHS PO Last administered on 11/24/16 21: 03; Start 11/20/16 at 21:00 Dutasteride (Avodart) 0.5 mg DAILY PO ; Start 11/20/16 at 11:00 Labetalol HCl (Normodyne) 10 mg PRN Q2HR PRN IVP HYPERTENSION, SEE COMMENTS; Start 11/20/16 at 10:45 Acetaminophen (Tylenol) 500 mg PRN Q6HRS PRN PO MILD PAIN / TEMP; Start at 10:45 Ondansetron HCl (Zofran) 4 mg PRN Q6HRS PRN IV NAUSEA/VOMITING; Start 11/21/16 at 07:00; Stop 11/22/16 at 06:59; Status DC Fentanyl Citrate (Fentanyl 2ml Vial) 25 mcg PRN Q5MIN PRN IV MILD PAIN; Start 11/21/16 at 07:00; Stop 11/22/16 at 06:59; Status DC Fentanyl Citrate (Fentanyl 2ml Vial) 50 mcg PRN Q5MIN PRN IV MODERATE PAIN; Start 11/21/16 at 07:00; Stop 11/22/16 at 06:59; Status DC Morphine Sulfate 1 mg PRN Q10MIN PRN IV SEVERE PAIN; Start 11/21/16 at 07:00; Stop 11/22/16 at 06:59; Status DC Ringer's Solution 1,000 ml @ 30 mls/hr Q24H IV ; Start 11/21/16 at 07:00; Stop 11/21/16 at 18:59; Status DC Lidocaine HCl 2 ml PRN 1X PRN ID PRIOR TO IV START; Start 11/21/16 at 07:00; Stop 11/22/16 at 06:59; Status DC Hydromorphone HCl (Dilaudid) 0.5 mg PRN Q10MIN PRN IV SEV PAIN, Second choice; Start 11/21/16 at 07:00; Stop 11/22/16 at 06:59; Status DC Prochlorperazine Edisylate (Compazine) 5 mg PACU PRN PRN IV NAUSEA, MRX1; Start 11/21/16 at 07:00; Stop 11/22/16 at 06:59; Status DC Hydralazine HCl (Apresoline) 10 mg PRN Q4HRS PRN IVP ELEVATED BP, SEE COMMENTS ; Start 11/20/16 at 15:30 Propofol 20 ml @ As Directed STK-MED ONCE IV ; Start 11/21/16 at 07:20; Stop at 07:21; Status DC Lidocaine HCl (Lidocaine Pf 2% Vial) 5 ml STK-MED ONCE .ROUTE ; Start 11/21/16 at 07:20; Stop 11/21/16 at 07:21; Status DC Ondansetron HCl (Zofran) 4 mg STK-MED ONCE .ROUTE ; Start 11/21/16 at 07:20; Stop 11/21/16 at 07:21; Status DC Dexamethasone Sodium Phosphate (Decadron) 20 mg STK-MED ONCE .ROUTE ; Start at 07:20; Stop 11/21/16 at 07:21; Status DC Phenylephrine HCl 1 mg STK-MED ONCE IV ; Start 11/21/16 at 07:21; Stop 11/21/16 at 07:22; Status DC Ephedrine Sulfate 50 mg STK-MED ONCE IV ; Start 11/21/16 at 07:21; Stop at 07:22; Status DC Fentanyl Citrate (Fentanyl 5ml Vial) 250 mcg STK-MED ONCE .ROUTE ; Start at 07:21; Stop 11/21/16 at 07:22; Status DC Rocuronium [place] (Zemuron) 50 mg STK-MED ONCE .ROUTE ; Start 11/21/16 at 07:22 ; Stop 11/21/16 at 07:23; Status DC Famotidine (Pepcid) 20 mg STK-MED ONCE .ROUTE ; Start 11/21/16 at 07:23; Stop at 07:24; Status DC Cellulose 1 each STK-MED ONCE .ROUTE Last administered on 11/21/16 10:29; Start 11/21/16 at 07:33; Stop 11/21/16 at 07:34; Status DC Bupivacaine HCl/ Epinephrine Bitart (Marcaine-Epi 0.5%-1:[id number]) 50 ml STK-MED ONCE .ROUTE Last administered on 11/21/16 08:43; Start 11/21/16 at 07:34; Stop 11/21/16 at 07:35; Status DC Cefazolin Sodium/ Dextrose 50 ml @ 100 mls/hr 1X PREOP ONCE IV Last administered on 11/21/16 08:25; Start 11/21/16 at 07:37; Stop 11/21/16 at 08:06 ; Status DC Succinylcholine Chloride (Anectine) 200 mg STK-MED ONCE .ROUTE ; Start 11/21/16 at 07:59; Stop 11/21/16 at 08:00; Status DC Sevoflurane (Ultane) 90 ml STK-MED ONCE IH ; Start 11/21/16 at 09:24; Stop 11/21 at 09:25; Status DC Rocuronium [place] (Zemuron) 50 mg STK-MED ONCE .ROUTE ; Start 11/21/16 at 09:25 ; Stop 11/21/16 at 09:26; Status DC Cellulose 1 each STK-MED ONCE .ROUTE ; Start 11/21/16 at 10:11; Stop 11/21/16 at 10:12; Status DC Sodium Bicarbonate 50 meq STK-MED ONCE .ROUTE ; Start 11/21/16 at 10:34; Stop at 10:35; Status DC Rocuronium [place] (Zemuron) 50 mg STK-MED ONCE .ROUTE ; Start 11/21/16 at 11:00 ; Stop 11/21/16 at 11:01; Status DC Sevoflurane (Ultane) 90 ml STK-MED ONCE IH ; Start 11/21/16 at 12:46; Stop 11/21 at 12:47; Status DC Piperacillin Sod/ Tazobactam Sod 3.375 gm/Sodium Chloride 50 ml @ 100 mls/hr Q6HRS IV Last administered on 11/25/16 05:59; Start 11/21/16 at 14:00 Fentanyl Citrate (Fentanyl 2ml Vial) 25 mcg PRN Q2HR PRN IV PAIN Last administered on 11/24/16 02:49; Start 11/21/16 at 13:30 Fentanyl Citrate (Fentanyl 2ml Vial) 50 mcg PRN Q2HR PRN IV PAIN Last administered on 11/23/16 09:50; Start 11/21/16 at 13:30 Propofol 100 ml @ 0 mls/hr CONT PRN IV PER PROTOCOL Last administered on 13:01; Start 11/21/16 at 13:30 Fentanyl Citrate (Fentanyl 2ml Vial) 25 mcg PRN Q1HR PRN IV COMM; Start at 13:30 Fentanyl Citrate (Fentanyl 2ml Vial) 50 mcg PRN Q1HR PRN IV COMM; Start at 13:30 Chlorhexidine Gluconate (Peridex) 15 ml BID MM Last administered on 11/24/16 21:03; Start 11/21/16 at 21:00 Potassium Chloride/Dextrose/ Sod Cl 1,000 ml @ 100 mls/hr Q10H IV Last administered on 11/25/16 01:15; Start 11/21/16 at 15:00 Albuterol/ Ipratropium (Duoneb) 3 ml RTQID NEB Last administered on 11/25/16 08:04; Start 11/23/16 at 16:00 Amino Acids/ Glycerin/ Electrolytes 1,000 ml @ 80 mls/hr [id number] IV ; Start at 16:15; Stop 11/23/16 at 18:21; Status DC Amino Acids/ Glycerin/ Electrolytes 1,000 ml @ 80 mls/hr [id number] IV Last administered on 11/24/16 08:00; Start 11/23/16 at 21:00; Stop 11/24/16 at 13:45 ; Status DC Amino Acids/ Glycerin/ Electrolytes 1,000 ml @ 80 mls/hr [id number] IV ; Start at 08:00 Active Scripts Active Reported Aspir 81 (Aspirin) 81 Mg Tablet.dr 81 Mg PO DAILY Atorvastatin Calcium 10 Mg Tablet 1 Tab PO DAILY Aspirin 81 Mg Tab.chew 1 Tab PO DAILY Avodart (Dutasteride) 0.5 Mg Capsule 1 Cap PO DAILY Vitals/I & O Vital Sign - Last 24 Hours 11/24/16 11/24/16 11/24/16 11/24/16 08:40 09:00 10:00 10:15 Pulse 64 63 Resp 24 22 B/P (MAP) 141/74 (96) 115/62 (79) Pulse Ox 98 97 98 97 O2 Delivery Ventilator Ventilator Ventilator 11/24/16 11/24/16 11/24/16 11/24/16 11:00 11:34 12:00 12:00 Temp 99.9 99.9 Pulse 76 74 Resp 30 30 B/P (MAP) 149/87 (107) 133/60 (84) Pulse Ox 97 97 100 O2 Delivery Ventilator Ventilator Mechanical Ventilator Ventilator 11/24/16 11/24/16 11/24/16 11/24/16 12:45 13:00 14:00 15:00 Pulse 62 64 63 Resp 20 26 26 B/P (MAP) 127/58 (81) 113/56 (75) 115/61 (79) Pulse Ox 98 98 98 97 O2 Delivery Ventilator Ventilator Ventilator Ventilator 11/24/16 11/24/16 11/24/16 11/24/16 15:30 16:00 16:00 17:00 Temp 98.6 98.6 98.6 98.6 Pulse 72 65 Resp 30 24 B/P (MAP) 136/68 (90) 137/66 (89) Pulse Ox 97 92 97 O2 Delivery Ventilator Mechanical Ventilator Ventilator 11/24/16 11/24/16 11/24/16 11/24/16 18:00 18:15 19:00 19:39 Pulse 68 62 Resp 30 25 B/P (MAP) 111/54 (73) 99/47 (64) Pulse Ox 92 95 96 96 O2 Delivery Ventilator Ventilator Ventilator Ventilator 11/24/16 11/24/16 11/24/16 11/24/16 20:00 20:00 20:55 21:00 Temp 100.8 100.8 Pulse 61 61 Resp 22 23 B/P (MAP) 107/52 (70) 113/56 (75) Pulse Ox 97 96 97 O2 Delivery Mechanical Ventilator Ventilator Ventilator Ventilator 11/24/16 11/24/16 11/24/16 11/25/16 22:00 22:40 23:00 00:00 Pulse 68 69 Resp 25 29 B/P (MAP) 144/68 (93) 137/72 (93) Pulse Ox 97 97 96 O2 Delivery Ventilator Ventilator Ventilator Mechanical Ventilator 11/25/16 11/25/16 11/25/16 11/25/16 00:00 00:38 01:00 02:00 Temp 100.6 100.6 Pulse 70 64 62 Resp 29 25 24 B/P (MAP) 124/62 (82) 115/59 (77) 107/58 (74) Pulse Ox 97 96 98 95 O2 Delivery Ventilator Ventilator Ventilator Ventilator 11/25/16 11/25/16 11/25/16 11/25/16 03:00 03:30 04:00 04:00 Temp 100.4 100.4 Pulse 65 63 Resp 22 26 B/P (MAP) 105/52 (69) 106/53 (70) Pulse Ox 94 96 100 O2 Delivery Ventilator Ventilator Ventilator Mechanical Ventilator 11/25/16 11/25/16 11/25/16 11/25/16 05:00 05:20 06:00 08:04 Pulse 62 64 Resp 26 27 B/P (MAP) 103/66 (78) 100/55 (70) Pulse Ox 100 100 100 100 O2 Delivery Ventilator Ventilator Ventilator Ventilator Intake and Output 11/24/16 11/24/16 11/25/16 15:00 23:00 07:00 Intake Total 70 ml 2016 ml 1882 ml Output Total 385 ml 495 ml 695 ml Balance -315 ml 1521 ml 1187 ml Problem List Problems Medical Problems: (1) Upper GI bleeding Status: Acute Assessment Post-op reduction of paraesophageal hernia/sleeve resection. Stable on support. Plan of Care: Continue current Tx, Mgmt WILBERTO ROBERTS MD Nov 25, 2016 08:24
[2016-11-25] MEDS: FAMOTIDINE 20 MG/2 ML VIAL IVP SCH ×2 (08:55→22:05)
[2016-11-25] MEDS: DUTASTERIDE 0.5 MG CAPSULE PO SCH (08:56)
[2016-11-25] MEDS: CHLORHEXIDINE 0.12% 15 ML MOUTHWASH. MM SCH ×2 (08:56→22:05)
--- NOTE | 2016-11-25 10:18 | PDOC ---
Infectious Disease Note ROS ROS Vital Sign Vital Signs Vital Signs Date Time Temp Pulse Resp B/P (MAP) Pulse Ox O2 Delivery O2 Flow Rate FiO2 11/25/16 08:04 100 Ventilator 11/25/16 06:00 64 27 100/55 (70) 11/25/16 04:00 100.4 100.4 11/24/16 08:00 2.0 Labs Lab Laboratory Tests Test 11/25/16 05:28 11/25/16 08:00 White Blood Count 15.8 x10^3/uL (4.0-11.0) Red Blood Count 2.67 x10^6/uL (4.30-5.70) Hemoglobin 9.1 g/dL (13.0-17.5) Hematocrit 26.3 % (39.0-53.0) Mean Corpuscular Volume 99 fL (79-100) Mean Corpuscular Hemoglobin 34 pg (25-35) Mean Corpuscular Hemoglobin Concent 35 g/dL (31-37) Red Cell Distribution Width 12.9 % (11.5-14.5) Platelet Count 125 x10^3/uL (140-400) Neutrophils (%) (Auto) 82 % (31-73) Lymphocytes (%) (Auto) 3 % (24-48) Monocytes (%) (Auto) 15 % (0-9) Eosinophils (%) (Auto) 1 % (0-3) Basophils (%) (Auto) 0 % (0-3) Neutrophils # (Auto) 12.9 x10^3uL (1.8-7.7) Lymphocytes # (Auto) 0.4 x10^3/uL (1.0-4.8) Monocytes # (Auto) 2.3 x10^3/uL (0.0-1.1) Eosinophils # (Auto) 0.1 x10^3/uL (0.0-0.7) Basophils # (Auto) 0.0 x10^3/uL (0.0-0.2) Sodium Level 144 mmol/L (136-145) Potassium Level 4.1 mmol/L (3.5-5.1) Chloride Level 112 mmol/L (98-107) Carbon Dioxide Level 24 mmol/L (21-32) Anion Gap 8 (6-14) Blood Urea Nitrogen 17 mg/dL (8-26) Creatinine 0.8 mg/dL (0.7-1.3) Estimated GFR (Cockcroft-Gault) 91.9 Glucose Level 112 mg/dL (70-99) Calcium Level 7.7 mg/dL (8.5-10.1) O2 Saturation 97 % (92-99) Arterial Blood pH 7.51 (7.35-7.45) Arterial Blood pCO2 at Patient Temp 26 mmHg (35-46) Arterial Blood pO2 at Patient Temp 91 mmHg (65-108) Arterial Blood HCO3 20 mmol/L (21-28) Arterial Blood Base Excess -2 mmol/L (-3-3) FiO2 40 Objective Assessment Fever Leukocytosis Aspiration pneumonia. s/p bronch 11/22. 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 Acute respiratory failure, failing weaning trials Pacemaker Dementia Plan Plan of Care Continue Zosyn and add Zyvox Await GPC ID Monitor WBC, renal function and temp f/u Thank you [id number] Patient seen and examined. Chart reviewed in detail. Case discussed with KITCHEN SUPERVISOR. Agree with above HAWA BEYER APRN Nov 25, 2016 10:18 DAYTON GLEASON MD Nov 25, 2016 17:08
--- NOTE | 2016-11-25 10:53 | PDOC ---
PULMONARY PROGRESS NOTES Subjective ON VENT, sedated, off sedation, agitated, has large ett secretion, didnt tolerate sbt yesterday and today, rr to 50s Vitals Vital Signs Date Time Temp Pulse Resp B/P (MAP) Pulse Ox O2 Delivery O2 Flow Rate FiO2 11/25/16 10:00 60 22 109/64 (79) 100 Ventilator 11/25/16 07:00 100.1 100.1 11/24/16 08:00 2.0 Comments ros discussed w rn, as mentioned as above, other sys otherwise neg HEENT: Other (nc at perrl, orally intubated, nose clear, neck, no thyromegaly, no lap) Lungs: Crackles Cardiovascular: S1, S2 Abdomen: Soft, Non-tender, Other (no mass) Extremities: No Edema Skin: Warm Labs Laboratory Tests Test 11/24/16 08:00 11/25/16 05:28 11/25/16 08:00 O2 Saturation 96 % (92-99) 97 % (92-99) Arterial Blood pH 7.48 (7.35-7.45) 7.51 (7.35-7.45) Arterial Blood pCO2 at Patient Temp 29 mmHg (35-46) 26 mmHg (35-46) Arterial Blood pO2 at Patient Temp 78 mmHg (65-108) 91 mmHg (65-108) Arterial Blood HCO3 21 mmol/L (21-28) 20 mmol/L (21-28) Arterial Blood Base Excess -2 mmol/L (-3-3) -2 mmol/L (-3-3) FiO2 40 40 White Blood Count 15.8 x10^3/uL (4.0-11.0) Red Blood Count 2.67 x10^6/uL (4.30-5.70) Hemoglobin 9.1 g/dL (13.0-17.5) Hematocrit 26.3 % (39.0-53.0) Mean Corpuscular Volume 99 fL (79-100) Mean Corpuscular Hemoglobin 34 pg (25-35) Mean Corpuscular Hemoglobin Concent 35 g/dL (31-37) Red Cell Distribution Width 12.9 % (11.5-14.5) Platelet Count 125 x10^3/uL (140-400) Neutrophils (%) (Auto) 82 % (31-73) Lymphocytes (%) (Auto) 3 % (24-48) Monocytes (%) (Auto) 15 % (0-9) Eosinophils (%) (Auto) 1 % (0-3) Basophils (%) (Auto) 0 % (0-3) Neutrophils # (Auto) 12.9 x10^3uL (1.8-7.7) Lymphocytes # (Auto) 0.4 x10^3/uL (1.0-4.8) Monocytes # (Auto) 2.3 x10^3/uL (0.0-1.1) Eosinophils # (Auto) 0.1 x10^3/uL (0.0-0.7) Basophils # (Auto) 0.0 x10^3/uL (0.0-0.2) Sodium Level 144 mmol/L (136-145) Potassium Level 4.1 mmol/L (3.5-5.1) Chloride Level 112 mmol/L (98-107) Carbon Dioxide Level 24 mmol/L (21-32) Anion Gap 8 (6-14) Blood Urea Nitrogen 17 mg/dL (8-26) Creatinine 0.8 mg/dL (0.7-1.3) Estimated GFR (Cockcroft-Gault) 91.9 Glucose Level 112 mg/dL (70-99) Calcium Level 7.7 mg/dL (8.5-10.1) Laboratory Tests Test 11/25/16 05:28 11/25/16 08:00 White Blood Count 15.8 x10^3/uL (4.0-11.0) Red Blood Count 2.67 x10^6/uL (4.30-5.70) Hemoglobin 9.1 g/dL (13.0-17.5) Hematocrit 26.3 % (39.0-53.0) Mean Corpuscular Volume 99 fL (79-100) Mean Corpuscular Hemoglobin 34 pg (25-35) Mean Corpuscular Hemoglobin Concent 35 g/dL (31-37) Red Cell Distribution Width 12.9 % (11.5-14.5) Platelet Count 125 x10^3/uL (140-400) Neutrophils (%) (Auto) 82 % (31-73) Lymphocytes (%) (Auto) 3 % (24-48) Monocytes (%) (Auto) 15 % (0-9) Eosinophils (%) (Auto) 1 % (0-3) Basophils (%) (Auto) 0 % (0-3) Neutrophils # (Auto) 12.9 x10^3uL (1.8-7.7) Lymphocytes # (Auto) 0.4 x10^3/uL (1.0-4.8) Monocytes # (Auto) 2.3 x10^3/uL (0.0-1.1) Eosinophils # (Auto) 0.1 x10^3/uL (0.0-0.7) Basophils # (Auto) 0.0 x10^3/uL (0.0-0.2) Sodium Level 144 mmol/L (136-145) Potassium Level 4.1 mmol/L (3.5-5.1) Chloride Level 112 mmol/L (98-107) Carbon Dioxide Level 24 mmol/L (21-32) Anion Gap 8 (6-14) Blood Urea Nitrogen 17 mg/dL (8-26) Creatinine 0.8 mg/dL (0.7-1.3) Estimated GFR (Cockcroft-Gault) 91.9 Glucose Level 112 mg/dL (70-99) Calcium Level 7.7 mg/dL (8.5-10.1) O2 Saturation 97 % (92-99) Arterial Blood pH 7.51 (7.35-7.45) Arterial Blood pCO2 at Patient Temp 26 mmHg (35-46) Arterial Blood pO2 at Patient Temp 91 mmHg (65-108) Arterial Blood HCO3 20 mmol/L (21-28) Arterial Blood Base Excess -2 mmol/L (-3-3) FiO2 40 Medications Active Scripts Medications Dose Route/Sig Max Daily Dose Days Date Category Aspir 81 (Aspirin) 81 Mg Tablet.dr 81 Mg PO DAILY 06/08/14 Reported Atorvastatin Calcium 10 Mg Tablet 1 Tab PO DAILY 03/10/14 Reported Aspirin 81 Mg Tab.chew 1 Tab PO DAILY 01/29/14 Reported Avodart (Dutasteride) 0.5 Mg Capsule 1 Cap PO DAILY 01/29/14 Reported Comments cxr reviewed, Cardiomegaly is unchanged. Bipolar cardiac pacing device is noted. Endotracheal tube is appropriately positioned above the mala. Patchy pulmonary infiltrates in the lungs persist but appear minimally improved. Bilateral pleural effusions are seen. Impression . ACUTE RESP FAILURE ASPIRATION PNEUMONIA S/P SEE OP NOTE Laparoscopic repair of large paraesophageal hernia, MELENA ARF ABNL CXR Plan . CONT VENT SUPPORT, VENT SETTING REVIEWED, sbt, didnt tolerate BROCH 11/04, fu studies ANTIBX bronchodilator elevate hob pepcid, scds for prophylaxis am cxr, abg DISCUSSED W RN, RT, MARINO SHEIKH MD Nov 25, 2016 10:53
[2016-11-25] MEDS: PROPOFOL 100 ML IV PRN ×2 (11:32→22:05)
--- NOTE | 2016-11-25 12:19 | PDOC ---
PROGRESS NOTES Chief Complaint Chief Complaint hematemesis ASSESSMENT AND PLAN: 1. UGIB: s/p Laparoscopic repair of large paraesophageal hernia, open partial gastrectomy, placement of gastrostomy with gastropexy, nutrition as per general surgery. Place PICC line, start TPN, monitor CBC and a CMP 2. Acute respiratory failure: On mechanical ventilation, off sedation, possible aspiration. fevers today, order blood cultures antibiotics changed to Zyvox. 3. Leukocytosis: Worsening 4. Arrhythmia: hx pacer placement 5. Prophylaxis: SCDs; medical anticoag contraindicated, mild thrombocytopenia 6. 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 Monitor overall prognosis guarded History of Present Illness History of Present Illness Off sedation failed SBT No fevers No acute events overnight Vitals Vitals Vital Signs Date Time Temp Pulse Resp B/P (MAP) Pulse Ox O2 Delivery O2 Flow Rate FiO2 11/25/16 12:02 100 Ventilator 11/25/16 11:00 60 26 122/70 (87) 11/25/16 07:00 100.1 100.1 11/24/16 08:00 2.0 Physical Exam General: No acute distress, Other (intubated) Heart: Regular rate, Normal S1, Normal S2 Lungs: Crackles Abdomen: Other (dressings dry and intact) Extremities: No clubbing, No cyanosis Skin: No rashes, No breakdown Labs LABS Laboratory Tests Test 11/25/16 05:28 11/25/16 08:00 White Blood Count 15.8 x10^3/uL (4.0-11.0) Red Blood Count 2.67 x10^6/uL (4.30-5.70) Hemoglobin 9.1 g/dL (13.0-17.5) Hematocrit 26.3 % (39.0-53.0) Mean Corpuscular Volume 99 fL (79-100) Mean Corpuscular Hemoglobin 34 pg (25-35) Mean Corpuscular Hemoglobin Concent 35 g/dL (31-37) Red Cell Distribution Width 12.9 % (11.5-14.5) Platelet Count 125 x10^3/uL (140-400) Neutrophils (%) (Auto) 82 % (31-73) Lymphocytes (%) (Auto) 3 % (24-48) Monocytes (%) (Auto) 15 % (0-9) Eosinophils (%) (Auto) 1 % (0-3) Basophils (%) (Auto) 0 % (0-3) Neutrophils # (Auto) 12.9 x10^3uL (1.8-7.7) Lymphocytes # (Auto) 0.4 x10^3/uL (1.0-4.8) Monocytes # (Auto) 2.3 x10^3/uL (0.0-1.1) Eosinophils # (Auto) 0.1 x10^3/uL (0.0-0.7) Basophils # (Auto) 0.0 x10^3/uL (0.0-0.2) Sodium Level 144 mmol/L (136-145) Potassium Level 4.1 mmol/L (3.5-5.1) Chloride Level 112 mmol/L (98-107) Carbon Dioxide Level 24 mmol/L (21-32) Anion Gap 8 (6-14) Blood Urea Nitrogen 17 mg/dL (8-26) Creatinine 0.8 mg/dL (0.7-1.3) Estimated GFR (Cockcroft-Gault) 91.9 Glucose Level 112 mg/dL (70-99) Calcium Level 7.7 mg/dL (8.5-10.1) O2 Saturation 97 % (92-99) Arterial Blood pH 7.51 (7.35-7.45) Arterial Blood pCO2 at Patient Temp 26 mmHg (35-46) Arterial Blood pO2 at Patient Temp 91 mmHg (65-108) Arterial Blood HCO3 20 mmol/L (21-28) Arterial Blood Base Excess -2 mmol/L (-3-3) FiO2 40 Assessment and Plan Assessmemt and Plan Problems Medical Problems: (1) Upper GI bleeding Status: Acute Problems: Comment Review of Relevant I have reviewed the following items cordell (where applicable) has been applied. Labs Laboratory Tests Test 11/24/16 08:00 11/25/16 05:28 11/25/16 08:00 O2 Saturation 96 % (92-99) 97 % (92-99) Arterial Blood pH 7.48 (7.35-7.45) 7.51 (7.35-7.45) Arterial Blood pCO2 at Patient Temp 29 mmHg (35-46) 26 mmHg (35-46) Arterial Blood pO2 at Patient Temp 78 mmHg (65-108) 91 mmHg (65-108) Arterial Blood HCO3 21 mmol/L (21-28) 20 mmol/L (21-28) Arterial Blood Base Excess -2 mmol/L (-3-3) -2 mmol/L (-3-3) FiO2 40 40 White Blood Count 15.8 x10^3/uL (4.0-11.0) Red Blood Count 2.67 x10^6/uL (4.30-5.70) Hemoglobin 9.1 g/dL (13.0-17.5) Hematocrit 26.3 % (39.0-53.0) Mean Corpuscular Volume 99 fL (79-100) Mean Corpuscular Hemoglobin 34 pg (25-35) Mean Corpuscular Hemoglobin Concent 35 g/dL (31-37) Red Cell Distribution Width 12.9 % (11.5-14.5) Platelet Count 125 x10^3/uL (140-400) Neutrophils (%) (Auto) 82 % (31-73) Lymphocytes (%) (Auto) 3 % (24-48) Monocytes (%) (Auto) 15 % (0-9) Eosinophils (%) (Auto) 1 % (0-3) Basophils (%) (Auto) 0 % (0-3) Neutrophils # (Auto) 12.9 x10^3uL (1.8-7.7) Lymphocytes # (Auto) 0.4 x10^3/uL (1.0-4.8) Monocytes # (Auto) 2.3 x10^3/uL (0.0-1.1) Eosinophils # (Auto) 0.1 x10^3/uL (0.0-0.7) Basophils # (Auto) 0.0 x10^3/uL (0.0-0.2) Sodium Level 144 mmol/L (136-145) Potassium Level 4.1 mmol/L (3.5-5.1) Chloride Level 112 mmol/L (98-107) Carbon Dioxide Level 24 mmol/L (21-32) Anion Gap 8 (6-14) Blood Urea Nitrogen 17 mg/dL (8-26) Creatinine 0.8 mg/dL (0.7-1.3) Estimated GFR (Cockcroft-Gault) 91.9 Glucose Level 112 mg/dL (70-99) Calcium Level 7.7 mg/dL (8.5-10.1) Laboratory Tests Test 11/25/16 05:28 11/25/16 08:00 White Blood Count 15.8 x10^3/uL (4.0-11.0) Red Blood Count 2.67 x10^6/uL (4.30-5.70) Hemoglobin 9.1 g/dL (13.0-17.5) Hematocrit 26.3 % (39.0-53.0) Mean Corpuscular Volume 99 fL (79-100) Mean Corpuscular Hemoglobin 34 pg (25-35) Mean Corpuscular Hemoglobin Concent 35 g/dL (31-37) Red Cell Distribution Width 12.9 % (11.5-14.5) Platelet Count 125 x10^3/uL (140-400) Neutrophils (%) (Auto) 82 % (31-73) Lymphocytes (%) (Auto) 3 % (24-48) Monocytes (%) (Auto) 15 % (0-9) Eosinophils (%) (Auto) 1 % (0-3) Basophils (%) (Auto) 0 % (0-3) Neutrophils # (Auto) 12.9 x10^3uL (1.8-7.7) Lymphocytes # (Auto) 0.4 x10^3/uL (1.0-4.8) Monocytes # (Auto) 2.3 x10^3/uL (0.0-1.1) Eosinophils # (Auto) 0.1 x10^3/uL (0.0-0.7) Basophils # (Auto) 0.0 x10^3/uL (0.0-0.2) Sodium Level 144 mmol/L (136-145) Potassium Level 4.1 mmol/L (3.5-5.1) Chloride Level 112 mmol/L (98-107) Carbon Dioxide Level 24 mmol/L (21-32) Anion Gap 8 (6-14) Blood Urea Nitrogen 17 mg/dL (8-26) Creatinine 0.8 mg/dL (0.7-1.3) Estimated GFR (Cockcroft-Gault) 91.9 Glucose Level 112 mg/dL (70-99) Calcium Level 7.7 mg/dL (8.5-10.1) O2 Saturation 97 % (92-99) Arterial Blood pH 7.51 (7.35-7.45) Arterial Blood pCO2 at Patient Temp 26 mmHg (35-46) Arterial Blood pO2 at Patient Temp 91 mmHg (65-108) Arterial Blood HCO3 20 mmol/L (21-28) Arterial Blood Base Excess -2 mmol/L (-3-3) FiO2 40 Microbiology 11/24/16 Gram Stain - Final, Complete 11/19/16 Urine Culture - Final, Complete 11/19/16 Urine Culture Result 1 ([facility]) - Final, Complete Medications Current Medications Sodium Chloride 1,000 ml @ 1,000 mls/hr 1X ONCE IV Last administered on 20:55; Start 11/19/16 at 20:45; Stop 11/19/16 at 21:44; Status DC Famotidine (Pepcid) 40 mg 1X ONCE IVP Last administered on 11/19/16 21:54; Start 11/19/16 at 21:30; Stop 11/19/16 at 21:31; Status DC Ondansetron HCl (Zofran) 4 mg PRN Q8HRS PRN IV NAUSEA/VOMITING Last administered on 11/19/16 21:54; Start 11/19/16 at 21:45; Stop 11/20/16 at 10:44 ; Status DC Morphine Sulfate 2 mg PRN Q2HR PRN IV PAIN; Start 11/19/16 at 21:45; Stop 11/20 at 21:44; Status DC Sodium Chloride 1,000 ml @ 110 mls/hr Q9H6M IV Last administered on 11/20/16 17:53; Start 11/19/16 at 21:41; Stop 11/20/16 at 21:40; Status DC Ondansetron HCl (Zofran) 4 mg PRN Q6HRS PRN IV NAUSEA/VOMITING; Start 11/20/16 at 10:42; Stop 11/21/16 at 10:41; Status DC Famotidine (Pepcid) 20 mg BID IVP Last administered on 11/25/16 08:55; Start 11/20/16 at 11:00 Atorvastatin Calcium (Lipitor) 10 mg QHS PO Last administered on 11/24/16 21: 03; Start 11/20/16 at 21:00 Dutasteride (Avodart) 0.5 mg DAILY PO ; Start 11/20/16 at 11:00 Labetalol HCl (Normodyne) 10 mg PRN Q2HR PRN IVP HYPERTENSION, SEE COMMENTS; Start 11/20/16 at 10:45 Acetaminophen (Tylenol) 500 mg PRN Q6HRS PRN PO MILD PAIN / TEMP; Start at 10:45 Ondansetron HCl (Zofran) 4 mg PRN Q6HRS PRN IV NAUSEA/VOMITING; Start 11/21/16 at 07:00; Stop 11/22/16 at 06:59; Status DC Fentanyl Citrate (Fentanyl 2ml Vial) 25 mcg PRN Q5MIN PRN IV MILD PAIN; Start 11/21/16 at 07:00; Stop 11/22/16 at 06:59; Status DC Fentanyl Citrate (Fentanyl 2ml Vial) 50 mcg PRN Q5MIN PRN IV MODERATE PAIN; Start 11/21/16 at 07:00; Stop 11/22/16 at 06:59; Status DC Morphine Sulfate 1 mg PRN Q10MIN PRN IV SEVERE PAIN; Start 11/21/16 at 07:00; Stop 11/22/16 at 06:59; Status DC Ringer's Solution 1,000 ml @ 30 mls/hr Q24H IV ; Start 11/21/16 at 07:00; Stop 11/21/16 at 18:59; Status DC Lidocaine HCl 2 ml PRN 1X PRN ID PRIOR TO IV START; Start 11/21/16 at 07:00; Stop 11/22/16 at 06:59; Status DC Hydromorphone HCl (Dilaudid) 0.5 mg PRN Q10MIN PRN IV SEV PAIN, Second choice; Start 11/21/16 at 07:00; Stop 11/22/16 at 06:59; Status DC Prochlorperazine Edisylate (Compazine) 5 mg PACU PRN PRN IV NAUSEA, MRX1; Start 11/21/16 at 07:00; Stop 11/22/16 at 06:59; Status DC Hydralazine HCl (Apresoline) 10 mg PRN Q4HRS PRN IVP ELEVATED BP, SEE COMMENTS ; Start 11/20/16 at 15:30 Propofol 20 ml @ As Directed STK-MED ONCE IV ; Start 11/21/16 at 07:20; Stop at 07:21; Status DC Lidocaine HCl (Lidocaine Pf 2% Vial) 5 ml STK-MED ONCE .ROUTE ; Start 11/21/16 at 07:20; Stop 11/21/16 at 07:21; Status DC Ondansetron HCl (Zofran) 4 mg STK-MED ONCE .ROUTE ; Start 11/21/16 at 07:20; Stop 11/21/16 at 07:21; Status DC Dexamethasone Sodium Phosphate (Decadron) 20 mg STK-MED ONCE .ROUTE ; Start at 07:20; Stop 11/21/16 at 07:21; Status DC Phenylephrine HCl 1 mg STK-MED ONCE IV ; Start 11/21/16 at 07:21; Stop 11/21/16 at 07:22; Status DC Ephedrine Sulfate 50 mg STK-MED ONCE IV ; Start 11/21/16 at 07:21; Stop at 07:22; Status DC Fentanyl Citrate (Fentanyl 5ml Vial) 250 mcg STK-MED ONCE .ROUTE ; Start at 07:21; Stop 11/21/16 at 07:22; Status DC Rocuronium [place] (Zemuron) 50 mg STK-MED ONCE .ROUTE ; Start 11/21/16 at 07:22 ; Stop 11/21/16 at 07:23; Status DC Famotidine (Pepcid) 20 mg STK-MED ONCE .ROUTE ; Start 11/21/16 at 07:23; Stop at 07:24; Status DC Cellulose 1 each STK-MED ONCE .ROUTE Last administered on 11/21/16 10:29; Start 11/21/16 at 07:33; Stop 11/21/16 at 07:34; Status DC Bupivacaine HCl/ Epinephrine Bitart (Marcaine-Epi 0.5%-[id number]) 50 ml STK-MED ONCE .ROUTE Last administered on 11/21/16 08:43; Start 11/21/16 at 07:34; Stop 11/21/16 at 07:35; Status DC Cefazolin Sodium/ Dextrose 50 ml @ 100 mls/hr 1X PREOP ONCE IV Last administered on 7/19/17at 08:25; Start 11/21/16 at 07:37; Stop 11/21/16 at 08:06 ; Status DC Succinylcholine Chloride (Anectine) 200 mg STK-MED ONCE .ROUTE ; Start 11/21/16 at 07:59; Stop 11/21/16 at 08:00; Status DC Sevoflurane (Ultane) 90 ml STK-MED ONCE IH ; Start 11/21/16 at 09:24; Stop 11/21 at 09:25; Status DC Rocuronium [place] (Zemuron) 50 mg STK-MED ONCE .ROUTE ; Start 11/21/16 at 09:25 ; Stop 11/21/16 at 09:26; Status DC Cellulose 1 each STK-MED ONCE .ROUTE ; Start 11/21/16 at 10:11; Stop 11/21/16 at 10:12; Status DC Sodium Bicarbonate 50 meq STK-MED ONCE .ROUTE ; Start 11/21/16 at 10:34; Stop at 10:35; Status DC Rocuronium [place] (Zemuron) 50 mg STK-MED ONCE .ROUTE ; Start 11/21/16 at 11:00 ; Stop 11/21/16 at 11:01; Status DC Sevoflurane (Ultane) 90 ml STK-MED ONCE IH ; Start 11/21/16 at 12:46; Stop 11/21 at 12:47; Status DC Piperacillin Sod/ Tazobactam Sod 3.375 gm/Sodium Chloride 50 ml @ 100 mls/hr Q6HRS IV Last administered on 11/25/16 11:32; Start 11/21/16 at 14:00 Fentanyl Citrate (Fentanyl 2ml Vial) 25 mcg PRN Q2HR PRN IV PAIN Last administered on 11/24/16 02:49; Start 11/21/16 at 13:30; Stop 11/25/16 at 12:11 ; Status DC Fentanyl Citrate (Fentanyl 2ml Vial) 50 mcg PRN Q2HR PRN IV PAIN Last administered on 11/23/16 09:50; Start 11/21/16 at 13:30; Stop 11/25/16 at 12:11 ; Status DC Propofol 100 ml @ 0 mls/hr CONT PRN IV PER PROTOCOL Last administered on 11:32; Start 11/21/16 at 13:30 Fentanyl Citrate (Fentanyl 2ml Vial) 25 mcg PRN Q1HR PRN IV COMM; Start at 13:30 Fentanyl Citrate (Fentanyl 2ml Vial) 50 mcg PRN Q1HR PRN IV COMM; Start at 13:30 Chlorhexidine Gluconate (Peridex) 15 ml BID MM Last administered on 11/25/16 08:56; Start 11/21/16 at 21:00 Potassium Chloride/Dextrose/ Sod Cl 1,000 ml @ 100 mls/hr Q10H IV Last administered on 11/25/16 08:55; Start 11/21/16 at 15:00 Albuterol/ Ipratropium (Duoneb) 3 ml RTQID NEB Last administered on 11/25/16 12:02; Start 11/23/16 at 16:00 Amino Acids/ Glycerin/ Electrolytes 1,000 ml @ 80 mls/hr [id number] IV ; Start at 16:15; Stop 11/23/16 at 18:21; Status DC Amino Acids/ Glycerin/ Electrolytes 1,000 ml @ 80 mls/hr [id number] IV Last administered on 11/24/16 08:00; Start 11/23/16 at 21:00; Stop 11/24/16 at 13:45 ; Status DC Amino Acids/ Glycerin/ Electrolytes 1,000 ml @ 80 mls/hr [id number] IV Last administered on 11/25/16 08:22; Start 11/25/16 at 08:00; Stop 11/25/16 at 21:59 Linezolid 300 ml @ 300 mls/hr Q12HR IV Last administered on 11/25/16 10:59; Start 11/25/16 at 10:00 Info 1 each PRN DAILY PRN MC SEE COMMENTS; Start 11/25/16 at 11:15 Active Scripts Active Reported Aspir 81 (Aspirin) 81 Mg Tablet.dr 81 Mg PO DAILY Atorvastatin Calcium 10 Mg Tablet 1 Tab PO DAILY Aspirin 81 Mg Tab.chew 1 Tab PO DAILY Avodart (Dutasteride) 0.5 Mg Capsule 1 Cap PO DAILY Vitals/I & O Vital Sign - Last 24 Hours 11/24/16 11/24/16 11/24/16 11/24/16 12:45 13:00 14:00 15:00 Pulse 62 64 63 Resp 20 26 26 B/P (MAP) 127/58 (81) 113/56 (75) 115/61 (79) Pulse Ox 98 98 98 97 O2 Delivery Ventilator Ventilator Ventilator Ventilator 11/24/16 11/24/16 11/24/16 11/24/16 15:30 16:00 16:00 17:00 Temp 98.6 98.6 98.6 98.6 Pulse 72 65 Resp 30 24 B/P (MAP) 136/68 (90) 137/66 (89) Pulse Ox 97 92 97 O2 Delivery Ventilator Mechanical Ventilator Ventilator 11/24/16 11/24/16 11/24/16 11/24/16 18:00 18:15 19:00 19:39 Pulse 68 62 Resp 30 25 B/P (MAP) 111/54 (73) 99/47 (64) Pulse Ox 92 95 96 96 O2 Delivery Ventilator Ventilator Ventilator Ventilator 11/24/16 11/24/16 11/24/16 11/24/16 20:00 20:00 20:55 21:00 Temp 100.8 100.8 Pulse 61 61 Resp 22 23 B/P (MAP) 107/52 (70) 113/56 (75) Pulse Ox 97 96 97 O2 Delivery Mechanical Ventilator Ventilator Ventilator Ventilator 11/24/16 11/24/16 11/24/16 11/25/16 22:00 22:40 23:00 00:00 Pulse 68 69 Resp 25 29 B/P (MAP) 144/68 (93) 137/72 (93) Pulse Ox 97 97 96 O2 Delivery Ventilator Ventilator Ventilator Mechanical Ventilator 11/25/16 11/25/16 11/25/16 11/25/16 00:00 00:38 01:00 02:00 Temp 100.6 100.6 Pulse 70 64 62 Resp 29 25 24 B/P (MAP) 124/62 (82) 115/59 (77) 107/58 (74) Pulse Ox 97 96 98 95 O2 Delivery Ventilator Ventilator Ventilator Ventilator 11/25/16 11/25/16 11/25/16 11/25/16 03:00 03:30 04:00 04:00 Temp 100.4 100.4 Pulse 65 63 Resp 22 26 B/P (MAP) 105/52 (69) 106/53 (70) Pulse Ox 94 96 100 O2 Delivery Ventilator Ventilator Ventilator Mechanical Ventilator 11/25/16 11/25/16 11/25/16 11/25/16 05:00 05:20 06:00 07:00 Temp 100.1 100.1 Pulse 62 64 61 Resp 26 27 25 B/P (MAP) 103/66 (78) 100/55 (70) 107/63 (78) Pulse Ox 100 100 100 100 O2 Delivery Ventilator Ventilator Ventilator Ventilator 11/25/16 11/25/16 11/25/16 11/25/16 08:00 08:04 09:00 09:45 Pulse 66 Resp 28 B/P (MAP) 107/57 (74) Pulse Ox 100 100 100 O2 Delivery Mechanical Ventilator Ventilator Ventilator Ventilator 11/25/16 11/25/16 11/25/16 10:00 11:00 12:02 Pulse 60 60 Resp 22 26 B/P (MAP) 109/64 (79) 122/70 (87) Pulse Ox 100 100 100 O2 Delivery Ventilator Ventilator Ventilator Intake and Output 11/24/16 11/24/16 11/25/16 15:00 23:00 07:00 Intake Total 70 ml 2016 ml 1882 ml Output Total 385 ml 495 ml 730 ml Balance -315 ml 1521 ml 1152 ml ANURADHA HALL MD Nov 25, 2016 12:19
--- NOTE | 2016-11-25 12:23 | PDOC ---
SURGICAL PROGRESS NOTE Subjective Tico for Jaquan intubated, sedated at bedside Vital Signs Vital Signs Date Time Temp Pulse Resp B/P (MAP) Pulse Ox O2 Delivery O2 Flow Rate FiO2 11/25/16 12:02 100 Ventilator 11/25/16 11:00 60 26 122/70 (87) 11/25/16 07:00 100.1 100.1 11/24/16 08:00 2.0 I&O Intake and Output 11/25/16 07:00 Intake Total 3968 ml Output Total 1610 ml Balance 2358 ml IV Total 3948 ml Other 20 ml Output Urine Total 1395 ml Drainage Total 215 ml PATIENT HAS A KIDD: Yes Abdomen: Soft, Other (G tube to dependent drainage) Labs Laboratory Tests Test 11/24/16 08:00 11/25/16 05:28 11/25/16 08:00 O2 Saturation 96 % (92-99) 97 % (92-99) Arterial Blood pH 7.48 (7.35-7.45) 7.51 (7.35-7.45) Arterial Blood pCO2 at Patient Temp 29 mmHg (35-46) 26 mmHg (35-46) Arterial Blood pO2 at Patient Temp 78 mmHg (65-108) 91 mmHg (65-108) Arterial Blood HCO3 21 mmol/L (21-28) 20 mmol/L (21-28) Arterial Blood Base Excess -2 mmol/L (-3-3) -2 mmol/L (-3-3) FiO2 40 40 White Blood Count 15.8 x10^3/uL (4.0-11.0) Red Blood Count 2.67 x10^6/uL (4.30-5.70) Hemoglobin 9.1 g/dL (13.0-17.5) Hematocrit 26.3 % (39.0-53.0) Mean Corpuscular Volume 99 fL (79-100) Mean Corpuscular Hemoglobin 34 pg (25-35) Mean Corpuscular Hemoglobin Concent 35 g/dL (31-37) Red Cell Distribution Width 12.9 % (11.5-14.5) Platelet Count 125 x10^3/uL (140-400) Neutrophils (%) (Auto) 82 % (31-73) Lymphocytes (%) (Auto) 3 % (24-48) Monocytes (%) (Auto) 15 % (0-9) Eosinophils (%) (Auto) 1 % (0-3) Basophils (%) (Auto) 0 % (0-3) Neutrophils # (Auto) 12.9 x10^3uL (1.8-7.7) Lymphocytes # (Auto) 0.4 x10^3/uL (1.0-4.8) Monocytes # (Auto) 2.3 x10^3/uL (0.0-1.1) Eosinophils # (Auto) 0.1 x10^3/uL (0.0-0.7) Basophils # (Auto) 0.0 x10^3/uL (0.0-0.2) Sodium Level 144 mmol/L (136-145) Potassium Level 4.1 mmol/L (3.5-5.1) Chloride Level 112 mmol/L (98-107) Carbon Dioxide Level 24 mmol/L (21-32) Anion Gap 8 (6-14) Blood Urea Nitrogen 17 mg/dL (8-26) Creatinine 0.8 mg/dL (0.7-1.3) Estimated GFR (Cockcroft-Gault) 91.9 Glucose Level 112 mg/dL (70-99) Calcium Level 7.7 mg/dL (8.5-10.1) Laboratory Tests Test 11/25/16 05:28 11/25/16 08:00 White Blood Count 15.8 x10^3/uL (4.0-11.0) Red Blood Count 2.67 x10^6/uL (4.30-5.70) Hemoglobin 9.1 g/dL (13.0-17.5) Hematocrit 26.3 % (39.0-53.0) Mean Corpuscular Volume 99 fL (79-100) Mean Corpuscular Hemoglobin 34 pg (25-35) Mean Corpuscular Hemoglobin Concent 35 g/dL (31-37) Red Cell Distribution Width 12.9 % (11.5-14.5) Platelet Count 125 x10^3/uL (140-400) Neutrophils (%) (Auto) 82 % (31-73) Lymphocytes (%) (Auto) 3 % (24-48) Monocytes (%) (Auto) 15 % (0-9) Eosinophils (%) (Auto) 1 % (0-3) Basophils (%) (Auto) 0 % (0-3) Neutrophils # (Auto) 12.9 x10^3uL (1.8-7.7) Lymphocytes # (Auto) 0.4 x10^3/uL (1.0-4.8) Monocytes # (Auto) 2.3 x10^3/uL (0.0-1.1) Eosinophils # (Auto) 0.1 x10^3/uL (0.0-0.7) Basophils # (Auto) 0.0 x10^3/uL (0.0-0.2) Sodium Level 144 mmol/L (136-145) Potassium Level 4.1 mmol/L (3.5-5.1) Chloride Level 112 mmol/L (98-107) Carbon Dioxide Level 24 mmol/L (21-32) Anion Gap 8 (6-14) Blood Urea Nitrogen 17 mg/dL (8-26) Creatinine 0.8 mg/dL (0.7-1.3) Estimated GFR (Cockcroft-Gault) 91.9 Glucose Level 112 mg/dL (70-99) Calcium Level 7.7 mg/dL (8.5-10.1) O2 Saturation 97 % (92-99) Arterial Blood pH 7.51 (7.35-7.45) Arterial Blood pCO2 at Patient Temp 26 mmHg (35-46) Arterial Blood pO2 at Patient Temp 91 mmHg (65-108) Arterial Blood HCO3 20 mmol/L (21-28) Arterial Blood Base Excess -2 mmol/L (-3-3) FiO2 40 Problem List Problems Medical Problems: (1) Upper GI bleeding Status: Acute Assessment/Plan POD 5 partial gastrectomy aspiration pneumonia cont supportive care Problems: VERONICA SALGADO MD Nov 25, 2016 12:23
[2016-11-25] MEDS: TPN PER PHARMACY MC PRN (12:59)
[2016-11-25] MEDS ORDERED: TOTAL PARENTERAL NUTRITION 1,402.4987 ML, AMINO ACIDS 10 % 60 GM, DEXTROSE 70 % IN WATE... IV SCH ×9 (22:00)
[2016-11-25] MEDS: ATORVASTATIN CALCIUM 10 MG TABLET. PO SCH (22:06)
[2016-11-26] VITALS (24 sets, daily range): BP systolic 80–120; BP diastolic 45–71
[2016-11-26] MEDS: PIPERACILLIN/TAZOBACTAM 3.375 GM in IV NORMAL SALINE 50ML 50 ML IV SCH ×2 (05:52→11:40)
[2016-11-26 06:28] LABS: BASO % 0 % (0-3); EOS % 1 % (0-3); HEMATOCRIT 22.3 % (39.0-53.0); HEMOGLOBIN 7.8 g/dL (13.0-17.5); LYMPH # 0.5 x10^3/uL (1.0-4.8); LYMPH % 4 % (24-48); MEAN CORPUSCULAR HEMOGLOBIN 34 pg (25-35); MEAN CORPUSCULAR HGB CONC 35 g/dL (31-37); MEAN CORPUSCULAR VOLUME 98 fL (79-100); MONO % 15 % (0-9); NEUT % 80 % (31-73); PLATELET COUNT 118 x10^3/uL (140-400); RED BLOOD COUNT 2.27 x10^6/uL (4.30-5.70); RED CELL DISTRIBUTION WIDTH 12.8 % (11.5-14.5); WHITE BLOOD COUNT 12.6 x10^3/uL (4.0-11.0)
[2016-11-26 06:37] LABS: CALCIUM 6.9 mg/dL (8.5-10.1); CREATININE 0.9 mg/dL (0.7-1.3); GFR 80.2; MAGNESIUM 1.9 mg/dL (1.8-2.4); PHOSPHORUS 2.3 mg/dL (2.6-4.7); POTASSIUM 3.6 mmol/L (3.5-5.1)
[2016-11-26] MEDS: DUTASTERIDE 0.5 MG CAPSULE PO SCH (07:12)
--- NOTE | 2016-11-26 07:38 | RAD ---
Portable chest, 11/26/2016: History: Respiratory failure Comparison is made to a study from 11/24/2016. The tip of the ET tube lies well above the mala. A left PICC has been inserted extending into the right atrium. A right sided transvenous pacemaker remains in place with 2 leads extending into the right heart. There are moderate patchy bilateral pulmonary infiltrates with slight interval worsening in the left parahilar region. The underlying pulmonary vascularity is poorly defined. 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 There is slight blunting of the left lateral costophrenic angle. No large volume of pleural fluid is seen. There is no evidence of pneumothorax. IMPRESSION: 1. Interval insertion of a left PICC extending into the right atrium. 2. Patchy pulmonary infiltrates have worsened slightly on the left, with the pattern suggesting pulmonary edema and/or pneumonia.
[2016-11-26] MEDS: CHLORHEXIDINE 0.12% 15 ML MOUTHWASH. MM SCH ×2 (07:46→22:50)
[2016-11-26] MEDS: FAMOTIDINE 20 MG/2 ML VIAL IVP SCH ×2 (07:47→20:58)
[2016-11-26] MEDS: PROPOFOL 100 ML IV PRN ×4 (08:21→22:33)
[2016-11-26] MEDS: IPRATRPIUM/ALBUTEROL 0.5/2.5MG 3 ML NEBU. NEB SCH ×4 (08:28→19:52)
[2016-11-26 08:47] LABS: HCO3 ABG 21 mmol/L (21-28); PCO2 ABG 28 mmHg (35-46); PO2 ABG 77 mmHg (65-108); SAT O2 ABG 95 % (92-99)
[2016-11-26 08:50] LABS: FIO2 ABG 35
--- NOTE | 2016-11-26 08:54 | PDOC ---
QIANA GIBSON LADLE LINER 11/26/16 0854: SURGICAL PROGRESS NOTE Subjective vent, sedated Vital Signs Vital Signs Date Time Temp Pulse Resp B/P (MAP) Pulse Ox O2 Delivery O2 Flow Rate FiO2 11/26/16 06:00 63 26 116/65 (82) 100 Ventilator 11/26/16 04:00 100.5 100.5 I&O Intake and Output 11/26/16 07:00 Intake Total 3292 ml Output Total 2125 ml Balance 1167 ml IV Total 3292 ml Output Urine Total 1715 ml Drainage Total 410 ml PATIENT HAS A KIDD: Yes General: No acute distress, Other Abdomen: Soft, Other (incision c/d/i, no erythema, gastric drainage from g tube , no blood) Labs Laboratory Tests Test 11/25/16 05:28 11/25/16 08:00 11/26/16 06:00 11/26/16 08:30 White Blood Count 15.8 x10^3/uL (4.0-11.0) 12.6 x10^3/uL (4.0-11.0) Red Blood Count 2.67 x10^6/uL (4.30-5.70) 2.27 x10^6/uL (4.30-5.70) Hemoglobin 9.1 g/dL (13.0-17.5) 7.8 g/dL (13.0-17.5) Hematocrit 26.3 % (39.0-53.0) 22.3 % (39.0-53.0) Mean Corpuscular Volume 99 fL (79-100) 98 fL (79-100) Mean Corpuscular Hemoglobin 34 pg (25-35) 34 pg (25-35) Mean Corpuscular Hemoglobin Concent 35 g/dL (31-37) 35 g/dL (31-37) Red Cell Distribution Width 12.9 % (11.5-14.5) 12.8 % (11.5-14.5) Platelet Count 125 x10^3/uL (140-400) 118 x10^3/uL (140-400) Neutrophils (%) (Auto) 82 % (31-73) 80 % (31-73) Lymphocytes (%) (Auto) 3 % (24-48) 4 % (24-48) Monocytes (%) (Auto) 15 % (0-9) 15 % (0-9) Eosinophils (%) (Auto) 1 % (0-3) 1 % (0-3) Basophils (%) (Auto) 0 % (0-3) 0 % (0-3) Neutrophils # (Auto) 12.9 x10^3uL (1.8-7.7) 10.1 x10^3uL (1.8-7.7) Lymphocytes # (Auto) 0.4 x10^3/uL (1.0-4.8) 0.5 x10^3/uL (1.0-4.8) Monocytes # (Auto) 2.3 x10^3/uL (0.0-1.1) 1.9 x10^3/uL (0.0-1.1) Eosinophils # (Auto) 0.1 x10^3/uL (0.0-0.7) 0.1 x10^3/uL (0.0-0.7) Basophils # (Auto) 0.0 x10^3/uL (0.0-0.2) 0.0 x10^3/uL (0.0-0.2) Sodium Level 144 mmol/L (136-145) 143 mmol/L (136-145) Potassium Level 4.1 mmol/L (3.5-5.1) 3.6 mmol/L (3.5-5.1) Chloride Level 112 mmol/L (98-107) 107 mmol/L (98-107) Carbon Dioxide Level 24 mmol/L (21-32) 23 mmol/L (21-32) Anion Gap 8 (6-14) 13 (6-14) Blood Urea Nitrogen 17 mg/dL (8-26) 14 mg/dL (8-26) Creatinine 0.8 mg/dL (0.7-1.3) 0.9 mg/dL (0.7-1.3) Estimated GFR (Cockcroft-Gault) 91.9 80.2 Glucose Level 112 mg/dL (70-99) 261 mg/dL (70-99) Calcium Level 7.7 mg/dL (8.5-10.1) 6.9 mg/dL (8.5-10.1) O2 Saturation 97 % (92-99) 95 % (92-99) Arterial Blood pH 7.51 (7.35-7.45) 7.50 (7.35-7.45) Arterial Blood pCO2 at Patient Temp 26 mmHg (35-46) 28 mmHg (35-46) Arterial Blood pO2 at Patient Temp 91 mmHg (65-108) 77 mmHg (65-108) Arterial Blood HCO3 20 mmol/L (21-28) 21 mmol/L (21-28) Arterial Blood Base Excess -2 mmol/L (-3-3) -1 mmol/L (-3-3) FiO2 40 35 Phosphorus Level 2.3 mg/dL (2.6-4.7) Magnesium Level 1.9 mg/dL (1.8-2.4) Triglycerides Level 276 mg/dL (0-150) Laboratory Tests Test 11/26/16 06:00 11/26/16 08:30 White Blood Count 12.6 x10^3/uL (4.0-11.0) Red Blood Count 2.27 x10^6/uL (4.30-5.70) Hemoglobin 7.8 g/dL (13.0-17.5) Hematocrit 22.3 % (39.0-53.0) Mean Corpuscular Volume 98 fL (79-100) Mean Corpuscular Hemoglobin 34 pg (25-35) Mean Corpuscular Hemoglobin Concent 35 g/dL (31-37) Red Cell Distribution Width 12.8 % (11.5-14.5) Platelet Count 118 x10^3/uL (140-400) Neutrophils (%) (Auto) 80 % (31-73) Lymphocytes (%) (Auto) 4 % (24-48) Monocytes (%) (Auto) 15 % (0-9) Eosinophils (%) (Auto) 1 % (0-3) Basophils (%) (Auto) 0 % (0-3) Neutrophils # (Auto) 10.1 x10^3uL (1.8-7.7) Lymphocytes # (Auto) 0.5 x10^3/uL (1.0-4.8) Monocytes # (Auto) 1.9 x10^3/uL (0.0-1.1) Eosinophils # (Auto) 0.1 x10^3/uL (0.0-0.7) Basophils # (Auto) 0.0 x10^3/uL (0.0-0.2) Sodium Level 143 mmol/L (136-145) Potassium Level 3.6 mmol/L (3.5-5.1) Chloride Level 107 mmol/L (98-107) Carbon Dioxide Level 23 mmol/L (21-32) Anion Gap 13 (6-14) Blood Urea Nitrogen 14 mg/dL (8-26) Creatinine 0.9 mg/dL (0.7-1.3) Estimated GFR (Cockcroft-Gault) 80.2 Glucose Level 261 mg/dL (70-99) Calcium Level 6.9 mg/dL (8.5-10.1) Phosphorus Level 2.3 mg/dL (2.6-4.7) Magnesium Level 1.9 mg/dL (1.8-2.4) Triglycerides Level 276 mg/dL (0-150) O2 Saturation 95 % (92-99) Arterial Blood pH 7.50 (7.35-7.45) Arterial Blood pCO2 at Patient Temp 28 mmHg (35-46) Arterial Blood pO2 at Patient Temp 77 mmHg (65-108) Arterial Blood HCO3 21 mmol/L (21-28) Arterial Blood Base Excess -1 mmol/L (-3-3) FiO2 35 Problem List Problems Medical Problems: (1) Upper GI bleeding Status: Acute Assessment/Plan POD# 6 partial gastrectomy hgb 7.8 today from 9.1--no blood thinners, no blood in g tube, bp and pulse stable-monitor asp pneumonia, vent-t max 100.9 BM noted in records TPN supportive care Problems: SYDNEE MCCRACKEN MD 11/26/16 1207: SURGICAL PROGRESS NOTE Assessment/Plan Reviewed, POD 5, supportive tx Problems: QIANA GIBSON LADLE LINER Nov 26, 2016 08:54 SYDNEE MCCRACKEN MD Nov 26, 2016 12:07
--- NOTE | 2016-11-26 09:24 | CONS ---
DATE OF CONSULTATION: 11/25/2016 REFERRING PHYSICIAN: Dr. Kaufman. REASON FOR CONSULTATION: Fever, leukocytosis and aspiration. HISTORY OF PRESENT ILLNESS: This patient is an 86-year-old male with a known large hiatal hernia with paraesophageal component and ulceration who presented with abdominal pain and ____, leukocytosis and lactic acidosis. He was taken to the OR on the for laparoscopic repair. During induction of anesthesia, he began vomiting large amounts of dark stomach contents. Respiratory distress ensued. Once stable, Dr. Partida general surgeon proceeded with surgery. According to the operative report there appeared to be a small perforation along the posterior aspect of the ischemic segment of the stomach. Open conversion, partial gastrectomy, gastropexy and placement of gastrostomy tube followed. The patient remains in the intensive care unit on mechanical ventilation. He has failed weaning trials. He is currently sedated, unable to provide additional history of present illness, past medical history or review of systems. Over the last couple days, he has been running low grade fevers ranging between 100.1 and 100.8 with a white blood cell count trending up. Recent chest x-ray showed persistent patchy infiltrates. Blood cultures are pending. The patient underwent a bronchoscopy on the with yeast and gram-positive cocci on Gram stain, preliminary culture shows yeast isolated so far. PAST MEDICAL HISTORY: 1. Hypertension. 2. Hyperlipidemia. 3. Sick sinus syndrome, status post pacemaker. 4. Abdominal aortic aneurysm. 5. Dementia. 6. Osteoarthritis. PAST SURGICAL HISTORY: As mentioned above. Pacemaker and cataract removal. SOCIAL HISTORY: The patient lives with his family. ALLERGIES: No known drug allergies. MEDICATIONS: Reviewed on JUL, includes piperacillin/tazobactam started on the . REVIEW OF SYSTEMS: Unobtainable as the patient is intubated and sedated. PHYSICAL EXAMINATION: GENERAL: A male, intubated and sedated, no apparent distress. VITAL SIGNS: Temperature is 100.4, blood pressure 100/55, heart rate 64, respiratory rate 27, pulse oximetry 100% of the ventilator, FiO2 40%, weight 184.44 pounds. HEENT: Pupils equally round, reactive. ____. LUNGS: Diminished aeration. HEART: Normal S1 and S2. He has a pacemaker. ABDOMEN: Mildly distended. Bowel sounds are present, soft. No grimace or guarding to palpation. Gastrostomy tube intact. Midline incision well approximated, healing, no area redness or drainage noted. GENITOURINARY: He has a Riddle. EXTREMITIES: Trace edema, no cyanosis. SKIN: Without rash. LINES: LUE -- PICC. Clean (inserted on the ).. LABORATORY DATA: Today, WBC 15.8, hemoglobin 9.1, platelet count 125,000. Sodium 144, potassium 4.1, creatinine 0.8, BUN 17, glucose 112, total bilirubin 0.6, AST 25, ALT 27, albumin 2.1. Repeat lactic acid 1.1 from 3.5 on admission. Lipase 274. Urinalysis on admission unremarkable for infection with negative culture. Repeat sputum from the shows mixed thad on Gram stain, culture pending. Recent chest x-ray shows a persistent patchy infiltrates, bilateral pleural effusions, unchanged from previous films. IMPRESSION: 1. Fever. 2. Leukocytosis. 3. Aspiration pneumonia, status post bronchoscopy on the with gram-positive cocci and yeast identified on Gram stain, culture pending. 4. Status post laparoscopic repair of large paraesophageal hernia with ulceration, open conversion, partial gastrectomy, gastropexy and gastrostomy tube placement on 11/21/2016. 5. Acute respiratory failure. 6. Dementia. PLAN: Continue the piperacillin/tazobactam and add Zyvox. Await GPC identification. Monitor WBC count, renal function and temperature. We will follow up on cultures. Thank you, Dr. Kaufman for asking me to participate in this patient's care. Should you have further questions or concerns please call. DAYTON GLEASON MD DR: JOSE A/pauline JOB#: [id number] / [id number]
--- NOTE | 2016-11-26 09:43 | PDOC ---
Infectious Disease Note Subjective Subjective Remains intubated. FiO2 35% TPN Fever Tmax 100.9 ROS ROS unobtainable Vital Sign Vital Signs Vital Signs Date Time Temp Pulse Resp B/P (MAP) Pulse Ox O2 Delivery O2 Flow Rate FiO2 11/26/16 09:00 59 20 90/50 (63) 100 Ventilator 11/26/16 07:00 98.6 98.6 Physical Exam PHYSICAL EXAM GENERAL: Intubated and sedated HEENT: Pupils equally round, reactive. ETT LUNGS: Diminished aeration. HEART: Normal S1 and S2. Pacemaker. ABDOMEN: Mildly distended. Bowel sounds are present, soft. No grimace or guarding to palpation. Gastrostomy tube intact. Midline incision well approximated, healing, no area redness or drainage noted. GENITOURINARY: Riddle. EXTREMITIES: Trace edema, no cyanosis. SKIN: Without rash. LUE -- PICC. Clean (11/24). Labs Lab Laboratory Tests Test 11/26/16 06:00 11/26/16 08:30 White Blood Count 12.6 x10^3/uL (4.0-11.0) Red Blood Count 2.27 x10^6/uL (4.30-5.70) Hemoglobin 7.8 g/dL (13.0-17.5) Hematocrit 22.3 % (39.0-53.0) Mean Corpuscular Volume 98 fL (79-100) Mean Corpuscular Hemoglobin 34 pg (25-35) Mean Corpuscular Hemoglobin Concent 35 g/dL (31-37) Red Cell Distribution Width 12.8 % (11.5-14.5) Platelet Count 118 x10^3/uL (140-400) Neutrophils (%) (Auto) 80 % (31-73) Lymphocytes (%) (Auto) 4 % (24-48) Monocytes (%) (Auto) 15 % (0-9) Eosinophils (%) (Auto) 1 % (0-3) Basophils (%) (Auto) 0 % (0-3) Neutrophils # (Auto) 10.1 x10^3uL (1.8-7.7) Lymphocytes # (Auto) 0.5 x10^3/uL (1.0-4.8) Monocytes # (Auto) 1.9 x10^3/uL (0.0-1.1) Eosinophils # (Auto) 0.1 x10^3/uL (0.0-0.7) Basophils # (Auto) 0.0 x10^3/uL (0.0-0.2) Sodium Level 143 mmol/L (136-145) Potassium Level 3.6 mmol/L (3.5-5.1) Chloride Level 107 mmol/L (98-107) Carbon Dioxide Level 23 mmol/L (21-32) Anion Gap 13 (6-14) Blood Urea Nitrogen 14 mg/dL (8-26) Creatinine 0.9 mg/dL (0.7-1.3) Estimated GFR (Cockcroft-Gault) 80.2 Glucose Level 261 mg/dL (70-99) Calcium Level 6.9 mg/dL (8.5-10.1) Phosphorus Level 2.3 mg/dL (2.6-4.7) Magnesium Level 1.9 mg/dL (1.8-2.4) Triglycerides Level 276 mg/dL (0-150) O2 Saturation 95 % (92-99) Arterial Blood pH 7.50 (7.35-7.45) Arterial Blood pCO2 at Patient Temp 28 mmHg (35-46) Arterial Blood pO2 at Patient Temp 77 mmHg (65-108) Arterial Blood HCO3 21 mmol/L (21-28) Arterial Blood Base Excess -1 mmol/L (-3-3) FiO2 35 CXR IMPRESSION: 1. Interval insertion of a left PICC extending into the right atrium. 2. Patchy pulmonary infiltrates have worsened slightly on the left, with the pattern suggesting pulmonary edema and/or pneumonia. Micro BLOOD CULTURE Preliminary NO GROWTH AFTER 1 DAY 11/24 SPUTUM CULT RES 1 Preliminary Gram negative rods 11/22 bronch SPUTUM CULT RES 1 Final Yeast isolated. Objective Assessment Fever Leukocytosis, better Aspiration pneumonia. s/p bronch 11/22. GPC & yeast. Final cx yeast only. Sputum 11/24 GNR s/p lap repair of lg paraesophageal hernia with ulceration, converted open, partial gastrectomy, gastropexy & G-tube placement, 11/21. Acute respiratory failure, failed weaning trial Pacemaker Dementia Plan Plan of Care Continue Zosyn and Zyvox Await GNR ID Monitor WBC, renal function and temp f/u BC Attending Co-Sign The patient was seen and interviewed as well as examined at the bedside. The chart was reviewed. The case was discussed. Agree with the plan of care. change zosyn to meropenem HAWA BEYER APRN Nov 26, 2016 09:43 JANES BEJARANO MD Nov 26, 2016 14:42
[2016-11-26] MEDS: TPN PER PHARMACY MC PRN ×3 (13:00→13:17)
--- NOTE | 2016-11-26 13:03 | PDOC ---
PROGRESS NOTES Chief Complaint Chief Complaint hematemesis ASSESSMENT AND PLAN: 1. UGIB: s/p Laparoscopic repair of large paraesophageal hernia, open partial gastrectomy, placement of gastrostomy with gastropexy, nutrition as per general surgery. Place PICC line, start TPN, monitor CBC and a CMP 2. Acute respiratory failure: On mechanical ventilation, off sedation, possible aspiration. sputum cx + GNR. on zyvox and zosyn with ID 3. Leukocytosis 4. Arrhythmia: hx pacer placement 5. Prophylaxis: SCDs; medical anticoag contraindicated, mild thrombocytopenia 6. 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 Monitor HYPOPHOsphatemia: replete Sarkis overall prognosis guarded History of Present Illness History of Present Illness Off sedation failed SBT , tachypnea still fever Hb 7.8 from 9.1, no active bleeding No acute events overnight Vitals Vitals Vital Signs Date Time Temp Pulse Resp B/P (MAP) Pulse Ox O2 Delivery O2 Flow Rate FiO2 11/26/16 12:01 100 Ventilator 11/26/16 11:50 60 27 94/62 (73) 11/26/16 11:00 97.8 97.8 Physical Exam Physical Exam intubated ,sedated General: Other Heart: Regular rate, Normal S1, Normal S2 Lungs: Crackles Abdomen: Soft, Other (incision c/d/i, no erythema, gastric drainage from g tube , no blood) Extremities: No clubbing, No cyanosis Skin: No rashes, No breakdown Labs LABS Laboratory Tests Test 11/26/16 06:00 11/26/16 08:30 White Blood Count 12.6 x10^3/uL (4.0-11.0) Red Blood Count 2.27 x10^6/uL (4.30-5.70) Hemoglobin 7.8 g/dL (13.0-17.5) Hematocrit 22.3 % (39.0-53.0) Mean Corpuscular Volume 98 fL (79-100) Mean Corpuscular Hemoglobin 34 pg (25-35) Mean Corpuscular Hemoglobin Concent 35 g/dL (31-37) Red Cell Distribution Width 12.8 % (11.5-14.5) Platelet Count 118 x10^3/uL (140-400) Neutrophils (%) (Auto) 80 % (31-73) Lymphocytes (%) (Auto) 4 % (24-48) Monocytes (%) (Auto) 15 % (0-9) Eosinophils (%) (Auto) 1 % (0-3) Basophils (%) (Auto) 0 % (0-3) Neutrophils # (Auto) 10.1 x10^3uL (1.8-7.7) Lymphocytes # (Auto) 0.5 x10^3/uL (1.0-4.8) Monocytes # (Auto) 1.9 x10^3/uL (0.0-1.1) Eosinophils # (Auto) 0.1 x10^3/uL (0.0-0.7) Basophils # (Auto) 0.0 x10^3/uL (0.0-0.2) Sodium Level 143 mmol/L (136-145) Potassium Level 3.6 mmol/L (3.5-5.1) Chloride Level 107 mmol/L (98-107) Carbon Dioxide Level 23 mmol/L (21-32) Anion Gap 13 (6-14) Blood Urea Nitrogen 14 mg/dL (8-26) Creatinine 0.9 mg/dL (0.7-1.3) Estimated GFR (Cockcroft-Gault) 80.2 Glucose Level 261 mg/dL (70-99) Calcium Level 6.9 mg/dL (8.5-10.1) Phosphorus Level 2.3 mg/dL (2.6-4.7) Magnesium Level 1.9 mg/dL (1.8-2.4) Triglycerides Level 276 mg/dL (0-150) O2 Saturation 95 % (92-99) Arterial Blood pH 7.50 (7.35-7.45) Arterial Blood pCO2 at Patient Temp 28 mmHg (35-46) Arterial Blood pO2 at Patient Temp 77 mmHg (65-108) Arterial Blood HCO3 21 mmol/L (21-28) Arterial Blood Base Excess -1 mmol/L (-3-3) FiO2 35 Review of Systems Review of Systems no fever, chills, Assessment and Plan Assessmemt and Plan Problems Medical Problems: (1) Upper GI bleeding Status: Acute Problems: Comment Review of Relevant I have reviewed the following items cordell (where applicable) has been applied. Labs Laboratory Tests Test 11/25/16 05:28 11/25/16 08:00 11/26/16 06:00 11/26/16 08:30 White Blood Count 15.8 x10^3/uL (4.0-11.0) 12.6 x10^3/uL (4.0-11.0) Red Blood Count 2.67 x10^6/uL (4.30-5.70) 2.27 x10^6/uL (4.30-5.70) Hemoglobin 9.1 g/dL (13.0-17.5) 7.8 g/dL (13.0-17.5) Hematocrit 26.3 % (39.0-53.0) 22.3 % (39.0-53.0) Mean Corpuscular Volume 99 fL (79-100) 98 fL (79-100) Mean Corpuscular Hemoglobin 34 pg (25-35) 34 pg (25-35) Mean Corpuscular Hemoglobin Concent 35 g/dL (31-37) 35 g/dL (31-37) Red Cell Distribution Width 12.9 % (11.5-14.5) 12.8 % (11.5-14.5) Platelet Count 125 x10^3/uL (140-400) 118 x10^3/uL (140-400) Neutrophils (%) (Auto) 82 % (31-73) 80 % (31-73) Lymphocytes (%) (Auto) 3 % (24-48) 4 % (24-48) Monocytes (%) (Auto) 15 % (0-9) 15 % (0-9) Eosinophils (%) (Auto) 1 % (0-3) 1 % (0-3) Basophils (%) (Auto) 0 % (0-3) 0 % (0-3) Neutrophils # (Auto) 12.9 x10^3uL (1.8-7.7) 10.1 x10^3uL (1.8-7.7) Lymphocytes # (Auto) 0.4 x10^3/uL (1.0-4.8) 0.5 x10^3/uL (1.0-4.8) Monocytes # (Auto) 2.3 x10^3/uL (0.0-1.1) 1.9 x10^3/uL (0.0-1.1) Eosinophils # (Auto) 0.1 x10^3/uL (0.0-0.7) 0.1 x10^3/uL (0.0-0.7) Basophils # (Auto) 0.0 x10^3/uL (0.0-0.2) 0.0 x10^3/uL (0.0-0.2) Sodium Level 144 mmol/L (136-145) 143 mmol/L (136-145) Potassium Level 4.1 mmol/L (3.5-5.1) 3.6 mmol/L (3.5-5.1) Chloride Level 112 mmol/L (98-107) 107 mmol/L (98-107) Carbon Dioxide Level 24 mmol/L (21-32) 23 mmol/L (21-32) Anion Gap 8 (6-14) 13 (6-14) Blood Urea Nitrogen 17 mg/dL (8-26) 14 mg/dL (8-26) Creatinine 0.8 mg/dL (0.7-1.3) 0.9 mg/dL (0.7-1.3) Estimated GFR (Cockcroft-Gault) 91.9 80.2 Glucose Level 112 mg/dL (70-99) 261 mg/dL (70-99) Calcium Level 7.7 mg/dL (8.5-10.1) 6.9 mg/dL (8.5-10.1) O2 Saturation 97 % (92-99) 95 % (92-99) Arterial Blood pH 7.51 (7.35-7.45) 7.50 (7.35-7.45) Arterial Blood pCO2 at Patient Temp 26 mmHg (35-46) 28 mmHg (35-46) Arterial Blood pO2 at Patient Temp 91 mmHg (65-108) 77 mmHg (65-108) Arterial Blood HCO3 20 mmol/L (21-28) 21 mmol/L (21-28) Arterial Blood Base Excess -2 mmol/L (-3-3) -1 mmol/L (-3-3) FiO2 40 35 Phosphorus Level 2.3 mg/dL (2.6-4.7) Magnesium Level 1.9 mg/dL (1.8-2.4) Triglycerides Level 276 mg/dL (0-150) Laboratory Tests Test 11/26/16 06:00 11/26/16 08:30 White Blood Count 12.6 x10^3/uL (4.0-11.0) Red Blood Count 2.27 x10^6/uL (4.30-5.70) Hemoglobin 7.8 g/dL (13.0-17.5) Hematocrit 22.3 % (39.0-53.0) Mean Corpuscular Volume 98 fL (79-100) Mean Corpuscular Hemoglobin 34 pg (25-35) Mean Corpuscular Hemoglobin Concent 35 g/dL (31-37) Red Cell Distribution Width 12.8 % (11.5-14.5) Platelet Count 118 x10^3/uL (140-400) Neutrophils (%) (Auto) 80 % (31-73) Lymphocytes (%) (Auto) 4 % (24-48) Monocytes (%) (Auto) 15 % (0-9) Eosinophils (%) (Auto) 1 % (0-3) Basophils (%) (Auto) 0 % (0-3) Neutrophils # (Auto) 10.1 x10^3uL (1.8-7.7) Lymphocytes # (Auto) 0.5 x10^3/uL (1.0-4.8) Monocytes # (Auto) 1.9 x10^3/uL (0.0-1.1) Eosinophils # (Auto) 0.1 x10^3/uL (0.0-0.7) Basophils # (Auto) 0.0 x10^3/uL (0.0-0.2) Sodium Level 143 mmol/L (136-145) Potassium Level 3.6 mmol/L (3.5-5.1) Chloride Level 107 mmol/L (98-107) Carbon Dioxide Level 23 mmol/L (21-32) Anion Gap 13 (6-14) Blood Urea Nitrogen 14 mg/dL (8-26) Creatinine 0.9 mg/dL (0.7-1.3) Estimated GFR (Cockcroft-Gault) 80.2 Glucose Level 261 mg/dL (70-99) Calcium Level 6.9 mg/dL (8.5-10.1) Phosphorus Level 2.3 mg/dL (2.6-4.7) Magnesium Level 1.9 mg/dL (1.8-2.4) Triglycerides Level 276 mg/dL (0-150) O2 Saturation 95 % (92-99) Arterial Blood pH 7.50 (7.35-7.45) Arterial Blood pCO2 at Patient Temp 28 mmHg (35-46) Arterial Blood pO2 at Patient Temp 77 mmHg (65-108) Arterial Blood HCO3 21 mmol/L (21-28) Arterial Blood Base Excess -1 mmol/L (-3-3) FiO2 35 Microbiology 11/25/16 Blood Culture - Preliminary, Resulted NO GROWTH AFTER 1 DAY 11/24/16 Gram Stain - Final, Complete 11/19/16 Urine Culture - Final, Complete 11/19/16 Urine Culture Result 1 ([facility]) - Final, Complete Medications Current Medications Sodium Chloride 1,000 ml @ 1,000 mls/hr 1X ONCE IV Last administered on 20:55; Start 11/19/16 at 20:45; Stop 11/19/16 at 21:44; Status DC Famotidine (Pepcid) 40 mg 1X ONCE IVP Last administered on 11/19/16 21:54; Start 11/19/16 at 21:30; Stop 11/19/16 at 21:31; Status DC Ondansetron HCl (Zofran) 4 mg PRN Q8HRS PRN IV NAUSEA/VOMITING Last administered on 11/19/16 21:54; Start 11/19/16 at 21:45; Stop 11/20/16 at 10:44 ; Status DC Morphine Sulfate 2 mg PRN Q2HR PRN IV PAIN; Start 11/19/16 at 21:45; Stop 11/20 at 21:44; Status DC Sodium Chloride 1,000 ml @ 110 mls/hr Q9H6M IV Last administered on 11/20/16 17:53; Start 11/19/16 at 21:41; Stop 11/20/16 at 21:40; Status DC Ondansetron HCl (Zofran) 4 mg PRN Q6HRS PRN IV NAUSEA/VOMITING; Start 11/20/16 at 10:42; Stop 11/21/16 at 10:41; Status DC Famotidine (Pepcid) 20 mg BID IVP Last administered on 11/26/16 07:47; Start 11/20/16 at 11:00 Atorvastatin Calcium (Lipitor) 10 mg QHS PO Last administered on 11/25/16t 22: 06; Start 11/20/16 at 21:00 Dutasteride (Avodart) 0.5 mg DAILY PO ; Start 11/20/16 at 11:00 Labetalol HCl (Normodyne) 10 mg PRN Q2HR PRN IVP HYPERTENSION, SEE COMMENTS; Start 11/20/16 at 10:45 Acetaminophen (Tylenol) 500 mg PRN Q6HRS PRN PO MILD PAIN / TEMP; Start at 10:45 Ondansetron HCl (Zofran) 4 mg PRN Q6HRS PRN IV NAUSEA/VOMITING; Start 11/21/16 at 07:00; Stop 11/22/16 at 06:59; Status DC Fentanyl Citrate (Fentanyl 2ml Vial) 25 mcg PRN Q5MIN PRN IV MILD PAIN; Start 11/21/16 at 07:00; Stop 11/22/16 at 06:59; Status DC Fentanyl Citrate (Fentanyl 2ml Vial) 50 mcg PRN Q5MIN PRN IV MODERATE PAIN; Start 11/21/16 at 07:00; Stop 11/22/16 at 06:59; Status DC Morphine Sulfate 1 mg PRN Q10MIN PRN IV SEVERE PAIN; Start 11/21/16 at 07:00; Stop 11/22/16 at 06:59; Status DC Ringer's Solution 1,000 ml @ 30 mls/hr Q24H IV ; Start 11/21/16 at 07:00; Stop 11/21/16 at 18:59; Status DC Lidocaine HCl 2 ml PRN 1X PRN ID PRIOR TO IV START; Start 11/21/16 at 07:00; Stop 11/22/16 at 06:59; Status DC Hydromorphone HCl (Dilaudid) 0.5 mg PRN Q10MIN PRN IV SEV PAIN, Second choice; Start 11/21/16 at 07:00; Stop 11/22/16 at 06:59; Status DC Prochlorperazine Edisylate (Compazine) 5 mg PACU PRN PRN IV NAUSEA, MRX1; Start 11/21/16 at 07:00; Stop 11/22/16 at 06:59; Status DC Hydralazine HCl (Apresoline) 10 mg PRN Q4HRS PRN IVP ELEVATED BP, SEE COMMENTS ; Start 11/20/16 at 15:30 Propofol 20 ml @ As Directed STK-MED ONCE IV ; Start 11/21/16 at 07:20; Stop at 07:21; Status DC Lidocaine HCl (Lidocaine Pf 2% Vial) 5 ml STK-MED ONCE .ROUTE ; Start 11/21/16 at 07:20; Stop 11/21/16 at 07:21; Status DC Ondansetron HCl (Zofran) 4 mg STK-MED ONCE .ROUTE ; Start 11/21/16 at 07:20; Stop 11/21/16 at 07:21; Status DC Dexamethasone Sodium Phosphate (Decadron) 20 mg STK-MED ONCE .ROUTE ; Start at 07:20; Stop 11/21/16 at 07:21; Status DC Phenylephrine HCl 1 mg STK-MED ONCE IV ; Start 11/21/16 at 07:21; Stop 11/21/16 at 07:22; Status DC Ephedrine Sulfate 50 mg STK-MED ONCE IV ; Start 11/21/16 at 07:21; Stop at 07:22; Status DC Fentanyl Citrate (Fentanyl 5ml Vial) 250 mcg STK-MED ONCE .ROUTE ; Start at 07:21; Stop 11/21/16 at 07:22; Status DC Rocuronium [place] (Zemuron) 50 mg STK-MED ONCE .ROUTE ; Start 11/21/16 at 07:22 ; Stop 11/21/16 at 07:23; Status DC Famotidine (Pepcid) 20 mg STK-MED ONCE .ROUTE ; Start 11/21/16 at 07:23; Stop at 07:24; Status DC Cellulose 1 each STK-MED ONCE .ROUTE Last administered on 11/21/16t 10:29; Start 11/21/16 at 07:33; Stop 11/21/16 at 07:34; Status DC Bupivacaine HCl/ Epinephrine Bitart (Marcaine-Epi 0.5%-[id number]) 50 ml STK-MED ONCE .ROUTE Last administered on 11/21/16 08:43; Start 11/21/16 at 07:34; Stop 11/21/16 at 07:35; Status DC Cefazolin Sodium/ Dextrose 50 ml @ 100 mls/hr 1X PREOP ONCE IV Last administered on 11/21/16 08:25; Start 11/21/16 at 07:37; Stop 11/21/16 at 08:06 ; Status DC Succinylcholine Chloride (Anectine) 200 mg STK-MED ONCE .ROUTE ; Start 11/21/16 at 07:59; Stop 11/21/16 at 08:00; Status DC Sevoflurane (Ultane) 90 ml STK-MED ONCE IH ; Start 11/21/16 at 09:24; Stop 11/21 at 09:25; Status DC Rocuronium [place] (Zemuron) 50 mg STK-MED ONCE .ROUTE ; Start 11/21/16 at 09:25 ; Stop 11/21/16 at 09:26; Status DC Cellulose 1 each STK-MED ONCE .ROUTE ; Start 11/21/16 at 10:11; Stop 11/21/16 at 10:12; Status DC Sodium Bicarbonate 50 meq STK-MED ONCE .ROUTE ; Start 11/21/16 at 10:34; Stop at 10:35; Status DC Rocuronium [place] (Zemuron) 50 mg STK-MED ONCE .ROUTE ; Start 11/21/16 at 11:00 ; Stop 11/21/16 at 11:01; Status DC Sevoflurane (Ultane) 90 ml STK-MED ONCE IH ; Start 11/21/16 at 12:46; Stop 11/21 at 12:47; Status DC Piperacillin Sod/ Tazobactam Sod 3.375 gm/Sodium Chloride 50 ml @ 100 mls/hr Q6HRS IV Last administered on 11/26/16 11:40; Start 11/21/16 at 14:00 Fentanyl Citrate (Fentanyl 2ml Vial) 25 mcg PRN Q2HR PRN IV PAIN Last administered on 11/24/16 02:49; Start 11/21/16 at 13:30; Stop 11/25/16 at 12:11 ; Status DC Fentanyl Citrate (Fentanyl 2ml Vial) 50 mcg PRN Q2HR PRN IV PAIN Last administered on 11/23/16 09:50; Start 11/21/16 at 13:30; Stop 11/25/16 at 12:11 ; Status DC Propofol 100 ml @ 0 mls/hr CONT PRN IV PER PROTOCOL Last administered on 08:21; Start 11/21/16 at 13:30 Fentanyl Citrate (Fentanyl 2ml Vial) 25 mcg PRN Q1HR PRN IV COMM; Start at 13:30 Fentanyl Citrate (Fentanyl 2ml Vial) 50 mcg PRN Q1HR PRN IV COMM; Start at 13:30 Chlorhexidine Gluconate (Peridex) 15 ml BID MM Last administered on 11/26/16 07:46; Start 11/21/16 at 21:00 Potassium Chloride/Dextrose/ Sod Cl 1,000 ml @ 100 mls/hr Q10H IV Last administered on 11/25/16 08:55; Start 11/21/16 at 15:00; Stop 11/25/16 at 21:59 ; Status DC Albuterol/ Ipratropium (Duoneb) 3 ml RTQID NEB Last administered on 11/26/16 12:01; Start 11/23/16 at 16:00 Amino Acids/ Glycerin/ Electrolytes 1,000 ml @ 80 mls/hr [id number] IV ; Start at 16:15; Stop 11/23/16 at 18:21; Status DC Amino Acids/ Glycerin/ Electrolytes 1,000 ml @ 80 mls/hr [id number] IV Last administered on 11/24/16 08:00; Start 11/23/16 at 21:00; Stop 11/24/16 at 13:45 ; Status DC Amino Acids/ Glycerin/ Electrolytes 1,000 ml @ 80 mls/hr [id number] IV Last administered on 11/25/16 08:22; Start 11/25/16 at 08:00; Stop 11/25/16 at 21:59 ; Status DC Linezolid 300 ml @ 300 mls/hr Q12HR IV Last administered on 11/26/16 07:47; Start 11/25/16 at 10:00 Info 1 each PRN DAILY PRN MC SEE COMMENTS Last administered on 11/25/16 12:59 ; Start 11/25/16 at 11:15 Sodium Acetate 90 meq/Potassium Chloride 50 meq/ Potassium Phosphate 13.6 mmol/ Magnesium Sulfate 10 meq/ Calcium Gluconate 10 meq/ Multivitamins 10 ml/Chromium / Copper/Manganese/ Seleni/Zn 1 ml/ Total Parenteral Nutrition/Amino Acids/ Dextrose 1,512 ml @ 63 mls/hr TPN CONT IV Last administered on 11/25/16t 22: 04; Start 11/25/16 at 22:00; Stop 11/26/16 at 21:59 Sodium Acetate 90 meq/Potassium Chloride 50 meq/ Potassium Phosphate 20.8 mmol/ Magnesium Sulfate 16 meq/ Calcium Gluconate 10 meq/ Multivitamins 10 ml/Chromium / Copper/Manganese/ Seleni/Zn 1 ml/ Total Parenteral Nutrition/Amino Acids/ Dextrose 1,512 ml @ 63 mls/hr TPN CONT IV ; Start 11/26/16 at 22:00; Stop at 21:59 Active Scripts Active Reported Aspir 81 (Aspirin) 81 Mg Tablet.dr 81 Mg PO DAILY Atorvastatin Calcium 10 Mg Tablet 1 Tab PO DAILY Aspirin 81 Mg Tab.chew 1 Tab PO DAILY Avodart (Dutasteride) 0.5 Mg Capsule 1 Cap PO DAILY Vitals/I & O Vital Sign - Last 24 Hours 11/25/16 11/25/16 11/25/16 11/25/16 14:00 15:00 15:41 16:00 Temp 99.0 99.0 Pulse 60 62 67 Resp 24 28 30 B/P (MAP) 108/56 (73) 100/52 (68) 140/56 (84) Pulse Ox 97 100 100 100 O2 Delivery Ventilator Ventilator Ventilator Ventilator 11/25/16 11/25/16 11/25/16 11/25/16 16:00 17:00 18:00 18:21 Pulse 70 65 Resp 32 25 B/P (MAP) 133/59 (83) 132/64 (86) Pulse Ox 100 100 100 O2 Delivery Mechanical Ventilator Ventilator Tracheal Collar Ventilator 11/25/16 11/25/16 11/25/16 11/25/16 19:00 20:00 20:00 20:15 Temp 100.4 100.4 Pulse 65 64 Resp 27 25 B/P (MAP) 113/55 (74) 116/64 (81) Pulse Ox 97 98 100 O2 Delivery Ventilator Ventilator Mechanical Ventilator Ventilator 11/25/16 11/25/16 11/25/16 11/25/16 21:00 22:00 23:00 23:56 Pulse 72 73 71 Resp 20 27 28 B/P (MAP) 128/60 (82) 114/58 (76) 113/58 (76) Pulse Ox 98 98 100 100 O2 Delivery Ventilator Ventilator Ventilator Ventilator 11/26/16 11/26/16 11/26/16 11/26/16 00:00 00:00 01:00 02:00 Temp 100.9 100.9 Pulse 71 65 65 Resp 21 29 29 B/P (MAP) 117/58 (77) 108/54 (72) 108/50 (69) Pulse Ox 100 100 98 O2 Delivery Ventilator Mechanical Ventilator Ventilator Ventilator 11/26/16 11/26/16 11/26/16 11/26/16 03:00 03:21 04:00 04:00 Temp 100.5 100.5 Pulse 63 63 Resp 27 26 B/P (MAP) 93/50 (64) 114/66 (82) Pulse Ox 99 100 100 O2 Delivery Ventilator Ventilator Ventilator Mechanical Ventilator 11/26/16 11/26/16 11/26/16 11/26/16 05:00 05:27 06:00 07:00 Temp 98.6 98.6 Pulse 63 63 66 Resp 30 26 27 B/P (MAP) 117/56 (76) 116/65 (82) 101/54 (70) Pulse Ox 98 100 100 100 O2 Delivery Ventilator Ventilator Ventilator Ventilator 11/26/16 11/26/16 11/26/16 11/26/16 08:00 08:00 08:28 09:00 Pulse 64 59 Resp 25 20 B/P (MAP) 116/65 (82) 90/50 (63) Pulse Ox 100 100 100 O2 Delivery Ventilator Mechanical Ventilator Ventilator Ventilator 11/26/16 11/26/16 11/26/16 11/26/16 10:00 10:00 11:00 11:50 Temp 97.8 97.8 Pulse 60 60 Resp 21 20 B/P (MAP) 91/56 (68) 90/56 (67) Pulse Ox 100 100 99 O2 Delivery Ventilator Ventilator Ventilator Mechanical Ventilator 11/26/16 11/26/16 11:50 12:01 Pulse 60 Resp 27 B/P (MAP) 94/62 (73) Pulse Ox 100 100 O2 Delivery Ventilator Ventilator Intake and Output 11/25/16 11/25/16 11/26/16 15:00 23:00 07:00 Intake Total 350 ml 1539 ml 1403 ml Output Total 350 ml 915 ml 1010 ml Balance 0 ml 624 ml 393 ml GUY SORENSON MD Nov 26, 2016 13:03
--- NOTE | 2016-11-26 13:24 | PDOC ---
G I PROGRESS NOTE Reason for Follow-up S/P reduction thoracic stomach/gastropexy/resection Subjective Sedated on ventilator. Objective Staff report small stool. Physical Exam Lungs clearer. RRR Abdomen seems less distended. Don't hear many bowel sounds. Tubes. Review of Relevant I have reviewed the following items cordell (where applicable) has been applied. Labs Laboratory Tests Test 11/25/16 05:28 11/25/16 08:00 11/26/16 06:00 11/26/16 08:30 White Blood Count 15.8 x10^3/uL (4.0-11.0) 12.6 x10^3/uL (4.0-11.0) Red Blood Count 2.67 x10^6/uL (4.30-5.70) 2.27 x10^6/uL (4.30-5.70) Hemoglobin 9.1 g/dL (13.0-17.5) 7.8 g/dL (13.0-17.5) Hematocrit 26.3 % (39.0-53.0) 22.3 % (39.0-53.0) Mean Corpuscular Volume 99 fL (79-100) 98 fL (79-100) Mean Corpuscular Hemoglobin 34 pg (25-35) 34 pg (25-35) Mean Corpuscular Hemoglobin Concent 35 g/dL (31-37) 35 g/dL (31-37) Red Cell Distribution Width 12.9 % (11.5-14.5) 12.8 % (11.5-14.5) Platelet Count 125 x10^3/uL (140-400) 118 x10^3/uL (140-400) Neutrophils (%) (Auto) 82 % (31-73) 80 % (31-73) Lymphocytes (%) (Auto) 3 % (24-48) 4 % (24-48) Monocytes (%) (Auto) 15 % (0-9) 15 % (0-9) Eosinophils (%) (Auto) 1 % (0-3) 1 % (0-3) Basophils (%) (Auto) 0 % (0-3) 0 % (0-3) Neutrophils # (Auto) 12.9 x10^3uL (1.8-7.7) 10.1 x10^3uL (1.8-7.7) Lymphocytes # (Auto) 0.4 x10^3/uL (1.0-4.8) 0.5 x10^3/uL (1.0-4.8) Monocytes # (Auto) 2.3 x10^3/uL (0.0-1.1) 1.9 x10^3/uL (0.0-1.1) Eosinophils # (Auto) 0.1 x10^3/uL (0.0-0.7) 0.1 x10^3/uL (0.0-0.7) Basophils # (Auto) 0.0 x10^3/uL (0.0-0.2) 0.0 x10^3/uL (0.0-0.2) Sodium Level 144 mmol/L (136-145) 143 mmol/L (136-145) Potassium Level 4.1 mmol/L (3.5-5.1) 3.6 mmol/L (3.5-5.1) Chloride Level 112 mmol/L (98-107) 107 mmol/L (98-107) Carbon Dioxide Level 24 mmol/L (21-32) 23 mmol/L (21-32) Anion Gap 8 (6-14) 13 (6-14) Blood Urea Nitrogen 17 mg/dL (8-26) 14 mg/dL (8-26) Creatinine 0.8 mg/dL (0.7-1.3) 0.9 mg/dL (0.7-1.3) Estimated GFR (Cockcroft-Gault) 91.9 80.2 Glucose Level 112 mg/dL (70-99) 261 mg/dL (70-99) Calcium Level 7.7 mg/dL (8.5-10.1) 6.9 mg/dL (8.5-10.1) O2 Saturation 97 % (92-99) 95 % (92-99) Arterial Blood pH 7.51 (7.35-7.45) 7.50 (7.35-7.45) Arterial Blood pCO2 at Patient Temp 26 mmHg (35-46) 28 mmHg (35-46) Arterial Blood pO2 at Patient Temp 91 mmHg (65-108) 77 mmHg (65-108) Arterial Blood HCO3 20 mmol/L (21-28) 21 mmol/L (21-28) Arterial Blood Base Excess -2 mmol/L (-3-3) -1 mmol/L (-3-3) FiO2 40 35 Phosphorus Level 2.3 mg/dL (2.6-4.7) Magnesium Level 1.9 mg/dL (1.8-2.4) Triglycerides Level 276 mg/dL (0-150) Laboratory Tests Test 11/26/16 06:00 11/26/16 08:30 White Blood Count 12.6 x10^3/uL (4.0-11.0) Red Blood Count 2.27 x10^6/uL (4.30-5.70) Hemoglobin 7.8 g/dL (13.0-17.5) Hematocrit 22.3 % (39.0-53.0) Mean Corpuscular Volume 98 fL (79-100) Mean Corpuscular Hemoglobin 34 pg (25-35) Mean Corpuscular Hemoglobin Concent 35 g/dL (31-37) Red Cell Distribution Width 12.8 % (11.5-14.5) Platelet Count 118 x10^3/uL (140-400) Neutrophils (%) (Auto) 80 % (31-73) Lymphocytes (%) (Auto) 4 % (24-48) Monocytes (%) (Auto) 15 % (0-9) Eosinophils (%) (Auto) 1 % (0-3) Basophils (%) (Auto) 0 % (0-3) Neutrophils # (Auto) 10.1 x10^3uL (1.8-7.7) Lymphocytes # (Auto) 0.5 x10^3/uL (1.0-4.8) Monocytes # (Auto) 1.9 x10^3/uL (0.0-1.1) Eosinophils # (Auto) 0.1 x10^3/uL (0.0-0.7) Basophils # (Auto) 0.0 x10^3/uL (0.0-0.2) Sodium Level 143 mmol/L (136-145) Potassium Level 3.6 mmol/L (3.5-5.1) Chloride Level 107 mmol/L (98-107) Carbon Dioxide Level 23 mmol/L (21-32) Anion Gap 13 (6-14) Blood Urea Nitrogen 14 mg/dL (8-26) Creatinine 0.9 mg/dL (0.7-1.3) Estimated GFR (Cockcroft-Gault) 80.2 Glucose Level 261 mg/dL (70-99) Calcium Level 6.9 mg/dL (8.5-10.1) Phosphorus Level 2.3 mg/dL (2.6-4.7) Magnesium Level 1.9 mg/dL (1.8-2.4) Triglycerides Level 276 mg/dL (0-150) O2 Saturation 95 % (92-99) Arterial Blood pH 7.50 (7.35-7.45) Arterial Blood pCO2 at Patient Temp 28 mmHg (35-46) Arterial Blood pO2 at Patient Temp 77 mmHg (65-108) Arterial Blood HCO3 21 mmol/L (21-28) Arterial Blood Base Excess -1 mmol/L (-3-3) FiO2 35 Microbiology 11/25/16 Blood Culture - Preliminary, Resulted NO GROWTH AFTER 1 DAY 11/24/16 Gram Stain - Final, Complete 11/19/16 Urine Culture - Final, Complete 11/19/16 Urine Culture Result 1 ([facility]) - Final, Complete Medications Current Medications Sodium Chloride 1,000 ml @ 1,000 mls/hr 1X ONCE IV Last administered on 20:55; Start 11/19/16 at 20:45; Stop 11/19/16 at 21:44; Status DC Famotidine (Pepcid) 40 mg 1X ONCE IVP Last administered on 11/19/16 21:54; Start 11/19/16 at 21:30; Stop 11/19/16 at 21:31; Status DC Ondansetron HCl (Zofran) 4 mg PRN Q8HRS PRN IV NAUSEA/VOMITING Last administered on 11/19/16 21:54; Start 11/19/16 at 21:45; Stop 11/20/16 at 10:44 ; Status DC Morphine Sulfate 2 mg PRN Q2HR PRN IV PAIN; Start 11/19/16 at 21:45; Stop 11/20 at 21:44; Status DC Sodium Chloride 1,000 ml @ 110 mls/hr Q9H6M IV Last administered on 11/20/16 17:53; Start 11/19/16 at 21:41; Stop 11/20/16 at 21:40; Status DC Ondansetron HCl (Zofran) 4 mg PRN Q6HRS PRN IV NAUSEA/VOMITING; Start 11/20/16 at 10:42; Stop 11/21/16 at 10:41; Status DC Famotidine (Pepcid) 20 mg BID IVP Last administered on 11/26/16 07:47; Start 11/20/16 at 11:00 Atorvastatin Calcium (Lipitor) 10 mg QHS PO Last administered on 11/25/16t 22: 06; Start 11/20/16 at 21:00 Dutasteride (Avodart) 0.5 mg DAILY PO ; Start 11/20/16 at 11:00 Labetalol HCl (Normodyne) 10 mg PRN Q2HR PRN IVP HYPERTENSION, SEE COMMENTS; Start 11/20/16 at 10:45 Acetaminophen (Tylenol) 500 mg PRN Q6HRS PRN PO MILD PAIN / TEMP; Start at 10:45 Ondansetron HCl (Zofran) 4 mg PRN Q6HRS PRN IV NAUSEA/VOMITING; Start 11/21/16 at 07:00; Stop 11/22/16 at 06:59; Status DC Fentanyl Citrate (Fentanyl 2ml Vial) 25 mcg PRN Q5MIN PRN IV MILD PAIN; Start 11/21/16 at 07:00; Stop 11/22/16 at 06:59; Status DC Fentanyl Citrate (Fentanyl 2ml Vial) 50 mcg PRN Q5MIN PRN IV MODERATE PAIN; Start 11/21/16 at 07:00; Stop 11/22/16 at 06:59; Status DC Morphine Sulfate 1 mg PRN Q10MIN PRN IV SEVERE PAIN; Start 11/21/16 at 07:00; Stop 11/22/16 at 06:59; Status DC Ringer's Solution 1,000 ml @ 30 mls/hr Q24H IV ; Start 11/21/16 at 07:00; Stop 11/21/16 at 18:59; Status DC Lidocaine HCl 2 ml PRN 1X PRN ID PRIOR TO IV START; Start 11/21/16 at 07:00; Stop 11/22/16 at 06:59; Status DC Hydromorphone HCl (Dilaudid) 0.5 mg PRN Q10MIN PRN IV SEV PAIN, Second choice; Start 11/21/16 at 07:00; Stop 11/22/16 at 06:59; Status DC Prochlorperazine Edisylate (Compazine) 5 mg PACU PRN PRN IV NAUSEA, MRX1; Start 11/21/16 at 07:00; Stop 11/22/16 at 06:59; Status DC Hydralazine HCl (Apresoline) 10 mg PRN Q4HRS PRN IVP ELEVATED BP, SEE COMMENTS ; Start 11/20/16 at 15:30 Propofol 20 ml @ As Directed STK-MED ONCE IV ; Start 11/21/16 at 07:20; Stop at 07:21; Status DC Lidocaine HCl (Lidocaine Pf 2% Vial) 5 ml STK-MED ONCE .ROUTE ; Start 11/21/16 at 07:20; Stop 11/21/16 at 07:21; Status DC Ondansetron HCl (Zofran) 4 mg STK-MED ONCE .ROUTE ; Start 11/21/16 at 07:20; Stop 11/21/16 at 07:21; Status DC Dexamethasone Sodium Phosphate (Decadron) 20 mg STK-MED ONCE .ROUTE ; Start at 07:20; Stop 11/21/16 at 07:21; Status DC Phenylephrine HCl 1 mg STK-MED ONCE IV ; Start 11/21/16 at 07:21; Stop 11/21/16 at 07:22; Status DC Ephedrine Sulfate 50 mg STK-MED ONCE IV ; Start 11/21/16 at 07:21; Stop at 07:22; Status DC Fentanyl Citrate (Fentanyl 5ml Vial) 250 mcg STK-MED ONCE .ROUTE ; Start at 07:21; Stop 11/21/16 at 07:22; Status DC Rocuronium Vul[place] (Zemuron) 50 mg STK-MED ONCE .ROUTE ; Start 11/21/16 at 07:22 ; Stop 11/21/16 at 07:23; Status DC Famotidine (Pepcid) 20 mg STK-MED ONCE .ROUTE ; Start 11/21/16 at 07:23; Stop at 07:24; Status DC Cellulose 1 each STK-MED ONCE .ROUTE Last administered on 11/21/16t 10:29; Start 11/21/16 at 07:33; Stop 11/21/16 at 07:34; Status DC Bupivacaine HCl/ Epinephrine Bitart (Marcaine-Epi 0.5%-[id number]) 50 ml STK-MED ONCE .ROUTE Last administered on 11/21/16 08:43; Start 11/21/16 at 07:34; Stop 11/21/16 at 07:35; Status DC Cefazolin Sodium/ Dextrose 50 ml @ 100 mls/hr 1X PREOP ONCE IV Last administered on 11/21/16 08:25; Start 11/21/16 at 07:37; Stop 11/21/16 at 08:06 ; Status DC Succinylcholine Chloride (Anectine) 200 mg STK-MED ONCE .ROUTE ; Start 11/21/16 at 07:59; Stop 11/21/16 at 08:00; Status DC Sevoflurane (Ultane) 90 ml STK-MED ONCE IH ; Start 11/21/16 at 09:24; Stop 11/21 at 09:25; Status DC Rocuronium Vul[place] (Zemuron) 50 mg STK-MED ONCE .ROUTE ; Start 11/21/16 at 09:25 ; Stop 11/21/16 at 09:26; Status DC Cellulose 1 each STK-MED ONCE .ROUTE ; Start 11/21/16 at 10:11; Stop 11/21/16 at 10:12; Status DC Sodium Bicarbonate 50 meq STK-MED ONCE .ROUTE ; Start 11/21/16 at 10:34; Stop at 10:35; Status DC Rocuronium Vul[place] (Zemuron) 50 mg STK-MED ONCE .ROUTE ; Start 11/21/16 at 11:00 ; Stop 11/21/16 at 11:01; Status DC Sevoflurane (Ultane) 90 ml STK-MED ONCE IH ; Start 11/21/16 at 12:46; Stop 11/21 at 12:47; Status DC Piperacillin Sod/ Tazobactam Sod 3.375 gm/Sodium Chloride 50 ml @ 100 mls/hr Q6HRS IV Last administered on 11/26/16 11:40; Start 11/21/16 at 14:00 Fentanyl Citrate (Fentanyl 2ml Vial) 25 mcg PRN Q2HR PRN IV PAIN Last administered on 11/24/16 02:49; Start 11/21/16 at 13:30; Stop 11/25/16 at 12:11 ; Status DC Fentanyl Citrate (Fentanyl 2ml Vial) 50 mcg PRN Q2HR PRN IV PAIN Last administered on 11/23/16 09:50; Start 11/21/16 at 13:30; Stop 11/25/16 at 12:11 ; Status DC Propofol 100 ml @ 0 mls/hr CONT PRN IV PER PROTOCOL Last administered on 08:21; Start 11/21/16 at 13:30 Fentanyl Citrate (Fentanyl 2ml Vial) 25 mcg PRN Q1HR PRN IV COMM; Start at 13:30 Fentanyl Citrate (Fentanyl 2ml Vial) 50 mcg PRN Q1HR PRN IV COMM; Start at 13:30 Chlorhexidine Gluconate (Peridex) 15 ml BID MM Last administered on 11/26/16 07:46; Start 11/21/16 at 21:00 Potassium Chloride/Dextrose/ Sod Cl 1,000 ml @ 100 mls/hr Q10H IV Last administered on 11/25/16 08:55; Start 11/21/16 at 15:00; Stop 11/25/16 at 21:59 ; Status DC Albuterol/ Ipratropium (Duoneb) 3 ml RTQID NEB Last administered on 11/26/16 12:01; Start 11/23/16 at 16:00 Amino Acids/ Glycerin/ Electrolytes 1,000 ml @ 80 mls/hr [id number] IV ; Start at 16:15; Stop 11/23/16 at 18:21; Status DC Amino Acids/ Glycerin/ Electrolytes 1,000 ml @ 80 mls/hr [id number] IV Last administered on 11/24/16 08:00; Start 11/23/16 at 21:00; Stop 11/24/16 at 13:45 ; Status DC Amino Acids/ Glycerin/ Electrolytes 1,000 ml @ 80 mls/hr [id number] IV Last administered on 11/25/16 08:22; Start 11/25/16 at 08:00; Stop 11/25/16 at 21:59 ; Status DC Linezolid 300 ml @ 300 mls/hr Q12HR IV Last administered on 11/26/16 07:47; Start 11/25/16 at 10:00 Info 1 each PRN DAILY PRN MC SEE COMMENTS Last administered on 11/26/16 13:17 ; Start 11/25/16 at 11:15 Sodium Acetate 90 meq/Potassium Chloride 50 meq/ Potassium Phosphate 13.6 mmol/ Magnesium Sulfate 10 meq/ Calcium Gluconate 10 meq/ Multivitamins 10 ml/Chromium / Copper/Manganese/ Seleni/Zn 1 ml/ Total Parenteral Nutrition/Amino Acids/ Dextrose 1,512 ml @ 63 mls/hr TPN CONT IV Last administered on 11/25/16 22: 04; Start 11/25/16 at 22:00; Stop 11/26/16 at 21:59 Sodium Chloride 45 meq/Sodium Acetate 45 meq/ Potassium Chloride 50 meq/ Potassium Phosphate 17 mmol/ Magnesium Sulfate 16 meq/Calcium Gluconate 14 meq/ Multivitamins 10 ml/Chromium/ Copper/Manganese/ Seleni/Zn 1 ml/ Total Parenteral Nutrition/Amino Acids/Dextrose 1,512 ml @ 63 mls/hr TPN CONT IV ; Start 11/26/16 at 22:00; Stop 11/27/16 at 21:59 Potassium Phosphate 10 mmol/ Sodium Chloride 103.3333 ml @ 51.667 m... Q2H IV ; Start 11/26/16 at 13:30; Stop 11/26/16 at 17:29 Active Scripts Active Reported Aspir 81 (Aspirin) 81 Mg Tablet.dr 81 Mg PO DAILY Atorvastatin Calcium 10 Mg Tablet 1 Tab PO DAILY Aspirin 81 Mg Tab.chew 1 Tab PO DAILY Avodart (Dutasteride) 0.5 Mg Capsule 1 Cap PO DAILY Vitals/I & O Vital Sign - Last 24 Hours 11/25/16 11/25/16 11/25/16 11/25/16 14:00 15:00 15:41 16:00 Temp 99.0 99.0 Pulse 60 62 67 Resp 24 28 30 B/P (MAP) 108/56 (73) 100/52 (68) 140/56 (84) Pulse Ox 97 100 100 100 O2 Delivery Ventilator Ventilator Ventilator Ventilator 11/25/16 11/25/16 11/25/16 11/25/16 16:00 17:00 18:00 18:21 Pulse 70 65 Resp 32 25 B/P (MAP) 133/59 (83) 132/64 (86) Pulse Ox 100 100 100 O2 Delivery Mechanical Ventilator Ventilator Tracheal Collar Ventilator 11/25/16 11/25/16 11/25/16 11/25/16 19:00 20:00 20:00 20:15 Temp 100.4 100.4 Pulse 65 64 Resp 27 25 B/P (MAP) 113/55 (74) 116/64 (81) Pulse Ox 97 98 100 O2 Delivery Ventilator Ventilator Mechanical Ventilator Ventilator 11/25/16 11/25/16 11/25/16 11/25/16 21:00 22:00 23:00 23:56 Pulse 72 73 71 Resp 20 27 28 B/P (MAP) 128/60 (82) 114/58 (76) 113/58 (76) Pulse Ox 98 98 100 100 O2 Delivery Ventilator Ventilator Ventilator Ventilator 11/26/16 11/26/16 11/26/16 11/26/16 00:00 00:00 01:00 02:00 Temp 100.9 100.9 Pulse 71 65 65 Resp 21 29 29 B/P (MAP) 117/58 (77) 108/54 (72) 108/50 (69) Pulse Ox 100 100 98 O2 Delivery Ventilator Mechanical Ventilator Ventilator Ventilator 11/26/16 11/26/16 11/26/16 11/26/16 03:00 03:21 04:00 04:00 Temp 100.5 100.5 Pulse 63 63 Resp 27 26 B/P (MAP) 93/50 (64) 114/66 (82) Pulse Ox 99 100 100 O2 Delivery Ventilator Ventilator Ventilator Mechanical Ventilator 11/26/16 11/26/16 11/26/16 11/26/16 05:00 05:27 06:00 07:00 Temp 98.6 98.6 Pulse 63 63 66 Resp 30 26 27 B/P (MAP) 117/56 (76) 116/65 (82) 101/54 (70) Pulse Ox 98 100 100 100 O2 Delivery Ventilator Ventilator Ventilator Ventilator 11/26/16 11/26/16 11/26/16 11/26/16 08:00 08:00 08:28 09:00 Pulse 64 59 Resp 25 20 B/P (MAP) 116/65 (82) 90/50 (63) Pulse Ox 100 100 100 O2 Delivery Ventilator Mechanical Ventilator Ventilator Ventilator 11/26/16 11/26/16 11/26/1617 10:00 10:00 11:00 11:50 Temp 97.8 97.8 Pulse 60 60 Resp 21 20 B/P (MAP) 91/56 (68) 90/56 (67) Pulse Ox 100 100 99 O2 Delivery Ventilator Ventilator Ventilator Mechanical Ventilator 11/26/16 11/26/16 11/26/16 11:50 12:01 13:00 Pulse 60 60 Resp 27 23 B/P (MAP) 94/62 (73) 91/56 (68) Pulse Ox 100 100 100 O2 Delivery Ventilator Ventilator Ventilator Intake and Output 11/25/16 11/25/16 11/26/16 15:00 23:00 07:00 Intake Total 350 ml 1539 ml 1403 ml Output Total 350 ml 915 ml 1010 ml Balance 0 ml 624 ml 393 ml Problem List Problems Medical Problems: (1) Upper GI bleeding Status: Acute Assessment Post-op. Slow, if any progress. Plan of Care: Continue current Tx, Mgmt WILBERTO ROBERTS MD Nov 26, 2016 13:24
[2016-11-26] MEDS: POTASSIUM PHOSPHATE DIBASIC 10 MMOL in IV NORMAL SALINE 100ML 100 ML IV SCH ×2 (13:44→14:54)
[2016-11-26] MEDS: MEROPENEM 500 MG in IV NORMAL SALINE 50ML 50 ML IV SCH ×2 (14:56→22:50)
--- NOTE | 2016-11-26 15:34 | PDOC ---
PULMONARY PROGRESS NOTES Subjective PT SEDATED ON VENT THIS AM WITH INCREASE WORK OF BREATHING Vitals Vital Signs Date Time Temp Pulse Resp B/P (MAP) Pulse Ox O2 Delivery O2 Flow Rate FiO2 11/26/16 15:00 60 20 117/65 (82) 100 Ventilator 11/26/16 11:00 97.8 97.8 HEENT: Other (nc at perrl, orally intubated, nose clear, neck, no thyromegaly, no lap) Lungs: Crackles Cardiovascular: S1, S2 Abdomen: Soft, Non-tender, Other (no mass) Extremities: No Edema Skin: Warm Labs Laboratory Tests Test 11/25/16 05:28 11/25/16 08:00 11/26/16 06:00 11/26/16 08:30 White Blood Count 15.8 x10^3/uL (4.0-11.0) 12.6 x10^3/uL (4.0-11.0) Red Blood Count 2.67 x10^6/uL (4.30-5.70) 2.27 x10^6/uL (4.30-5.70) Hemoglobin 9.1 g/dL (13.0-17.5) 7.8 g/dL (13.0-17.5) Hematocrit 26.3 % (39.0-53.0) 22.3 % (39.0-53.0) Mean Corpuscular Volume 99 fL (79-100) 98 fL (79-100) Mean Corpuscular Hemoglobin 34 pg (25-35) 34 pg (25-35) Mean Corpuscular Hemoglobin Concent 35 g/dL (31-37) 35 g/dL (31-37) Red Cell Distribution Width 12.9 % (11.5-14.5) 12.8 % (11.5-14.5) Platelet Count 125 x10^3/uL (140-400) 118 x10^3/uL (140-400) Neutrophils (%) (Auto) 82 % (31-73) 80 % (31-73) Lymphocytes (%) (Auto) 3 % (24-48) 4 % (24-48) Monocytes (%) (Auto) 15 % (0-9) 15 % (0-9) Eosinophils (%) (Auto) 1 % (0-3) 1 % (0-3) Basophils (%) (Auto) 0 % (0-3) 0 % (0-3) Neutrophils # (Auto) 12.9 x10^3uL (1.8-7.7) 10.1 x10^3uL (1.8-7.7) Lymphocytes # (Auto) 0.4 x10^3/uL (1.0-4.8) 0.5 x10^3/uL (1.0-4.8) Monocytes # (Auto) 2.3 x10^3/uL (0.0-1.1) 1.9 x10^3/uL (0.0-1.1) Eosinophils # (Auto) 0.1 x10^3/uL (0.0-0.7) 0.1 x10^3/uL (0.0-0.7) Basophils # (Auto) 0.0 x10^3/uL (0.0-0.2) 0.0 x10^3/uL (0.0-0.2) Sodium Level 144 mmol/L (136-145) 143 mmol/L (136-145) Potassium Level 4.1 mmol/L (3.5-5.1) 3.6 mmol/L (3.5-5.1) Chloride Level 112 mmol/L (98-107) 107 mmol/L (98-107) Carbon Dioxide Level 24 mmol/L (21-32) 23 mmol/L (21-32) Anion Gap 8 (6-14) 13 (6-14) Blood Urea Nitrogen 17 mg/dL (8-26) 14 mg/dL (8-26) Creatinine 0.8 mg/dL (0.7-1.3) 0.9 mg/dL (0.7-1.3) Estimated GFR (Cockcroft-Gault) 91.9 80.2 Glucose Level 112 mg/dL (70-99) 261 mg/dL (70-99) Calcium Level 7.7 mg/dL (8.5-10.1) 6.9 mg/dL (8.5-10.1) O2 Saturation 97 % (92-99) 95 % (92-99) Arterial Blood pH 7.51 (7.35-7.45) 7.50 (7.35-7.45) [facility] (35-46) 28 mmHg (35-46) Arterial Blood pO2 at Patient Temp 91 mmHg (65-108) 77 mmHg (65-108) Arterial Blood HCO3 20 mmol/L (21-28) 21 mmol/L (21-28) Arterial Blood Base Excess -2 mmol/L (-3-3) -1 mmol/L (-3-3) FiO2 40 35 Phosphorus Level 2.3 mg/dL (2.6-4.7) Magnesium Level 1.9 mg/dL (1.8-2.4) Triglycerides Level 276 mg/dL (0-150) Laboratory Tests Test 11/26/16 06:00 11/26/16 08:30 White Blood Count 12.6 x10^3/uL (4.0-11.0) Red Blood Count 2.27 x10^6/uL (4.30-5.70) Hemoglobin 7.8 g/dL (13.0-17.5) Hematocrit 22.3 % (39.0-53.0) Mean Corpuscular Volume 98 fL (79-100) Mean Corpuscular Hemoglobin 34 pg (25-35) Mean Corpuscular Hemoglobin Concent 35 g/dL (31-37) Red Cell Distribution Width 12.8 % (11.5-14.5) Platelet Count 118 x10^3/uL (140-400) Neutrophils (%) (Auto) 80 % (31-73) Lymphocytes (%) (Auto) 4 % (24-48) Monocytes (%) (Auto) 15 % (0-9) Eosinophils (%) (Auto) 1 % (0-3) Basophils (%) (Auto) 0 % (0-3) Neutrophils # (Auto) 10.1 x10^3uL (1.8-7.7) Lymphocytes # (Auto) 0.5 x10^3/uL (1.0-4.8) Monocytes # (Auto) 1.9 x10^3/uL (0.0-1.1) Eosinophils # (Auto) 0.1 x10^3/uL (0.0-0.7) Basophils # (Auto) 0.0 x10^3/uL (0.0-0.2) Sodium Level 143 mmol/L (136-145) Potassium Level 3.6 mmol/L (3.5-5.1) Chloride Level 107 mmol/L (98-107) Carbon Dioxide Level 23 mmol/L (21-32) Anion Gap 13 (6-14) Blood Urea Nitrogen 14 mg/dL (8-26) Creatinine 0.9 mg/dL (0.7-1.3) Estimated GFR (Cockcroft-Gault) 80.2 Glucose Level 261 mg/dL (70-99) Calcium Level 6.9 mg/dL (8.5-10.1) Phosphorus Level 2.3 mg/dL (2.6-4.7) Magnesium Level 1.9 mg/dL (1.8-2.4) Triglycerides Level 276 mg/dL (0-150) O2 Saturation 95 % (92-99) Arterial Blood pH 7.50 (7.35-7.45) Arterial Blood pCO2 at Patient Temp 28 mmHg (35-46) Arterial Blood pO2 at Patient Temp 77 mmHg (65-108) Arterial Blood HCO3 21 mmol/L (21-28) Arterial Blood Base Excess -1 mmol/L (-3-3) FiO2 35 Medications Active Scripts Medications Dose Route/Sig Max Daily Dose Days Date Category Aspir 81 (Aspirin) 81 Mg Tablet.dr 81 Mg PO DAILY 06/08/14 Reported Atorvastatin Calcium 10 Mg Tablet 1 Tab PO DAILY 03/10/14 Reported Aspirin 81 Mg Tab.chew 1 Tab PO DAILY 01/29/14 Reported Avodart (Dutasteride) 0.5 Mg Capsule 1 Cap PO DAILY 01/29/14 Reported Comments cxr reviewed, Cardiomegaly is unchanged. Bipolar cardiac pacing device is noted. Endotracheal tube is appropriately positioned above the mala. Patchy pulmonary infiltrates in the lungs persist but appear minimally improved. Bilateral pleural effusions are seen. Impression . ACUTE RESP FAILURE MULTIFACTORIAL ASPIRATION PNEUMONIA S/P SEE OP NOTE Laparoscopic repair of large paraesophageal hernia, MELENA ARF ABNL CXR MALNUTRITION DEMENTIA Plan . SPOKE WITH PATIENT AND WISHES ARE NOT TO PROCEED WITH TRACH PT HAD A POOR QUALITY OF LIFE PRIOR TO SURGERY WILL CONTINUE AGGRESSIVE MEASURE FOR APPROX 7-10 DAYS IF NO BETTER WILL D/C SUPPORT AN ALLOW NATURAL WILL D/W CODE STATUS IN AM BROCH 11/04, ANTIBX BRONCHODILATORS D/W SABRINA GUSTAFSON MD Nov 26, 2016 15:34
[2016-11-26] MEDS: POTASSIUM CL 20MEQ D5-0.45NACL 1,000 ML IV SCH (20:13)
[2016-11-26] MEDS: ATORVASTATIN CALCIUM 10 MG TABLET. PO SCH (21:00)
[2016-11-26] MEDS ORDERED: AMINO ACIDS IV SCH ×10 (22:00)
[2016-11-26] MEDS ORDERED: TOTAL PARENTERAL NUTRITION IV SCH ×10 (22:00)
[2016-11-26] MEDS ORDERED: DEXTROSE 70% IV SCH ×10 (22:00)
[2016-11-26] MEDS ORDERED: [UNRECOGNIZED DRUG - OTHER] IV SCH ×10 (22:00)
[2016-11-26] MEDS: fentaNYL PF VIAL 100 MCG/2 ML VIAL IV PRN (23:08)
[2016-11-27] VITALS (31 sets, daily range): BP systolic 84–153; BP diastolic 46–92
[2016-11-27] MEDS: PROPOFOL 100 ML IV PRN ×3 (04:04→20:04)
[2016-11-27] MEDS: fentaNYL PF VIAL 100 MCG/2 ML VIAL IV PRN ×3 (04:20→06:03)
[2016-11-27] MEDS: MEROPENEM 500 MG in IV NORMAL SALINE 50ML 50 ML IV SCH ×3 (05:40→22:11)
[2016-11-27 06:42] LABS: CALCIUM 8.7 mg/dL (8.5-10.1); CREATININE 0.7 mg/dL (0.7-1.3); GFR 107.2; MAGNESIUM 2.4 mg/dL (1.8-2.4); PHOSPHORUS 3.8 mg/dL (2.6-4.7); POTASSIUM 4.1 mmol/L (3.5-5.1)
[2016-11-27 06:44] LABS: BASO % 0 % (0-3); EOS % 2 % (0-3); HEMOGLOBIN 7.1 g/dL (13.0-17.5); LYMPH # 0.6 x10^3/uL (1.0-4.8); LYMPH % 5 % (24-48); MEAN CORPUSCULAR HEMOGLOBIN 34 pg (25-35); MEAN CORPUSCULAR HGB CONC 34 g/dL (31-37); MEAN CORPUSCULAR VOLUME 100 fL (79-100); MONO % 12 % (0-9); NEUT % 82 % (31-73); PLATELET COUNT 133 x10^3/uL (140-400); RED BLOOD COUNT 2.11 x10^6/uL (4.30-5.70); WHITE BLOOD COUNT 12.4 x10^3/uL (4.0-11.0)
[2016-11-27] MEDS: IPRATRPIUM/ALBUTEROL 0.5/2.5MG 3 ML NEBU. NEB SCH ×4 (08:03→19:55)
[2016-11-27] MEDS: DUTASTERIDE 0.5 MG CAPSULE PO SCH (08:53)
[2016-11-27] MEDS: FAMOTIDINE 20 MG/2 ML VIAL IVP SCH ×2 (08:53→20:03)
[2016-11-27] MEDS: CHLORHEXIDINE 0.12% 15 ML MOUTHWASH. MM SCH ×2 (08:53→20:05)
--- NOTE | 2016-11-27 09:11 | PDOC ---
Infectious Disease Note Subjective Subjective Remains intubated. FiO2 35% TPN No fever last 24 hours Vital Sign Vital Signs Vital Signs Date Time Temp Pulse Resp B/P (MAP) Pulse Ox O2 Delivery O2 Flow Rate FiO2 11/27/16 08:03 94 Ventilator 11/27/16 06:35 20 11/27/16 05:53 62 105/61 (76) 11/26/16 19:00 99.3 99.3 Physical Exam PHYSICAL EXAM GENERAL: Intubated and sedated HEENT: ETT LUNGS: Diminished aeration. HEART: Normal S1 and S2. Pacemaker. ABDOMEN: Mildly distended. Bowel sounds are present, soft. No grimace or guarding to palpation. Gastrostomy tube intact. Midline incision covered. GENITOURINARY: Riddle. EXTREMITIES: Trace edema, no cyanosis. SKIN: Without rash. LUE - PICC. Clean (11/24). Labs Lab Laboratory Tests Test 11/27/16 06:00 11/27/16 07:46 White Blood Count 12.4 x10^3/uL (4.0-11.0) Red Blood Count 2.11 x10^6/uL (4.30-5.70) Hemoglobin 7.1 g/dL (13.0-17.5) Hematocrit 21.0 % (39.0-53.0) Mean Corpuscular Volume 100 fL (79-100) Mean Corpuscular Hemoglobin 34 pg (25-35) Mean Corpuscular Hemoglobin Concent 34 g/dL (31-37) Red Cell Distribution Width 13.0 % (11.5-14.5) Platelet Count 133 x10^3/uL (140-400) Neutrophils (%) (Auto) 82 % (31-73) Lymphocytes (%) (Auto) 5 % (24-48) Monocytes (%) (Auto) 12 % (0-9) Eosinophils (%) (Auto) 2 % (0-3) Basophils (%) (Auto) 0 % (0-3) Neutrophils # (Auto) 10.1 x10^3uL (1.8-7.7) Lymphocytes # (Auto) 0.6 x10^3/uL (1.0-4.8) Monocytes # (Auto) 1.4 x10^3/uL (0.0-1.1) Eosinophils # (Auto) 0.2 x10^3/uL (0.0-0.7) Basophils # (Auto) 0.0 x10^3/uL (0.0-0.2) Sodium Level 138 mmol/L (136-145) Potassium Level 4.1 mmol/L (3.5-5.1) Chloride Level 107 mmol/L (98-107) Carbon Dioxide Level 26 mmol/L (21-32) Anion Gap 5 (6-14) Blood Urea Nitrogen 16 mg/dL (8-26) Creatinine 0.7 mg/dL (0.7-1.3) Estimated GFR (Cockcroft-Gault) 107.2 Glucose Level 128 mg/dL (70-99) Calcium Level 8.7 mg/dL (8.5-10.1) Phosphorus Level 3.8 mg/dL (2.6-4.7) Magnesium Level 2.4 mg/dL (1.8-2.4) Glucose (Fingerstick) 90 mg/dL (70-99) Micro BLOOD CULTURE Preliminary NO GROWTH AFTER 2 DAY SPUTUM CULT RES 1 Final Enterobacter aerogenes Antibiotic RSLT#1 Cefazolin R Cefepime S Ceftriaxone S Cefuroxime R Ciprofloxacin S Ertapenem S Gentamicin S Imipenem S Levofloxacin S Piperacillin I Tetracycline S Tobramycin S Trimethoprim/Sulfa S Objective Assessment Fever Leukocytosis, better Aspiration pneumonia. s/p bronch 11/22. GS: GPC & yeast. Final cx yeast only. 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 Acute respiratory failure Anemia Pacemaker Dementia Plan Plan of Care Meropenem and Zyvox Monitor WBC, renal function and temp Supportive care Attending Co-Sign The patient was seen and interviewed as well as examined at the bedside. The chart was reviewed. The case was discussed. Agree with the plan of care. HAWA BEYER APRN Nov 27, 2016 09:11 JANES BEJARANO MD Nov 27, 2016 14:24
[2016-11-27] MEDS: TPN PER PHARMACY MC PRN ×2 (09:45→10:28)
--- NOTE | 2016-11-27 09:53 | PDOC ---
G I PROGRESS NOTE Subjective Sedated on ventilator. Physical Exam Lungs clear anteriorly. RRR Abdomen soft, not distended nor apparently tender. G-tube with bilious drainage. Some bowel sounds. Review of Relevant I have reviewed the following items cordell (where applicable) has been applied. Labs Laboratory Tests Test 11/26/16 06:00 11/26/16 08:30 11/27/16 06:00 11/27/16 07:46 White Blood Count 12.6 x10^3/uL (4.0-11.0) 12.4 x10^3/uL (4.0-11.0) Red Blood Count 2.27 x10^6/uL (4.30-5.70) 2.11 x10^6/uL (4.30-5.70) Hemoglobin 7.8 g/dL (13.0-17.5) 7.1 g/dL (13.0-17.5) Hematocrit 22.3 % (39.0-53.0) 21.0 % (39.0-53.0) Mean Corpuscular Volume 98 fL (79-100) 100 fL (79-100) Mean Corpuscular Hemoglobin 34 pg (25-35) 34 pg (25-35) Mean Corpuscular Hemoglobin Concent 35 g/dL (31-37) 34 g/dL (31-37) Red Cell Distribution Width 12.8 % (11.5-14.5) 13.0 % (11.5-14.5) Platelet Count 118 x10^3/uL (140-400) 133 x10^3/uL (140-400) Neutrophils (%) (Auto) 80 % (31-73) 82 % (31-73) Lymphocytes (%) (Auto) 4 % (24-48) 5 % (24-48) Monocytes (%) (Auto) 15 % (0-9) 12 % (0-9) Eosinophils (%) (Auto) 1 % (0-3) 2 % (0-3) Basophils (%) (Auto) 0 % (0-3) 0 % (0-3) Neutrophils # (Auto) 10.1 x10^3uL (1.8-7.7) 10.1 x10^3uL (1.8-7.7) Lymphocytes # (Auto) 0.5 x10^3/uL (1.0-4.8) 0.6 x10^3/uL (1.0-4.8) Monocytes # (Auto) 1.9 x10^3/uL (0.0-1.1) 1.4 x10^3/uL (0.0-1.1) Eosinophils # (Auto) 0.1 x10^3/uL (0.0-0.7) 0.2 x10^3/uL (0.0-0.7) Basophils # (Auto) 0.0 x10^3/uL (0.0-0.2) 0.0 x10^3/uL (0.0-0.2) Sodium Level 143 mmol/L (136-145) 138 mmol/L (136-145) Potassium Level 3.6 mmol/L (3.5-5.1) 4.1 mmol/L (3.5-5.1) Chloride Level 107 mmol/L (98-107) 107 mmol/L (98-107) Carbon Dioxide Level 23 mmol/L (21-32) 26 mmol/L (21-32) Anion Gap 13 (6-14) 5 (6-14) Blood Urea Nitrogen 14 mg/dL (8-26) 16 mg/dL (8-26) Creatinine 0.9 mg/dL (0.7-1.3) 0.7 mg/dL (0.7-1.3) Estimated GFR (Cockcroft-Gault) 80.2 107.2 Glucose Level 261 mg/dL (70-99) 128 mg/dL (70-99) Calcium Level 6.9 mg/dL (8.5-10.1) 8.7 mg/dL (8.5-10.1) Phosphorus Level 2.3 mg/dL (2.6-4.7) 3.8 mg/dL (2.6-4.7) Magnesium Level 1.9 mg/dL (1.8-2.4) 2.4 mg/dL (1.8-2.4) Triglycerides Level 276 mg/dL (0-150) O2 Saturation 95 % (92-99) Arterial Blood pH 7.50 (7.35-7.45) Arterial Blood pCO2 at Patient Temp 28 mmHg (35-46) Arterial Blood pO2 at Patient Temp 77 mmHg (65-108) Arterial Blood HCO3 21 mmol/L (21-28) Arterial Blood Base Excess -1 mmol/L (-3-3) FiO2 35 Glucose (Fingerstick) 90 mg/dL (70-99) Laboratory Tests Test 11/27/16 06:00 11/27/16 07:46 White Blood Count 12.4 x10^3/uL (4.0-11.0) Red Blood Count 2.11 x10^6/uL (4.30-5.70) Hemoglobin 7.1 g/dL (13.0-17.5) Hematocrit 21.0 % (39.0-53.0) Mean Corpuscular Volume 100 fL (79-100) Mean Corpuscular Hemoglobin 34 pg (25-35) Mean Corpuscular Hemoglobin Concent 34 g/dL (31-37) Red Cell Distribution Width 13.0 % (11.5-14.5) Platelet Count 133 x10^3/uL (140-400) Neutrophils (%) (Auto) 82 % (31-73) Lymphocytes (%) (Auto) 5 % (24-48) Monocytes (%) (Auto) 12 % (0-9) Eosinophils (%) (Auto) 2 % (0-3) Basophils (%) (Auto) 0 % (0-3) Neutrophils # (Auto) 10.1 x10^3uL (1.8-7.7) Lymphocytes # (Auto) 0.6 x10^3/uL (1.0-4.8) Monocytes # (Auto) 1.4 x10^3/uL (0.0-1.1) Eosinophils # (Auto) 0.2 x10^3/uL (0.0-0.7) Basophils # (Auto) 0.0 x10^3/uL (0.0-0.2) Sodium Level 138 mmol/L (136-145) Potassium Level 4.1 mmol/L (3.5-5.1) Chloride Level 107 mmol/L (98-107) Carbon Dioxide Level 26 mmol/L (21-32) Anion Gap 5 (6-14) Blood Urea Nitrogen 16 mg/dL (8-26) Creatinine 0.7 mg/dL (0.7-1.3) Estimated GFR (Cockcroft-Gault) 107.2 Glucose Level 128 mg/dL (70-99) Calcium Level 8.7 mg/dL (8.5-10.1) Phosphorus Level 3.8 mg/dL (2.6-4.7) Magnesium Level 2.4 mg/dL (1.8-2.4) Glucose (Fingerstick) 90 mg/dL (70-99) Microbiology 11/25/16 Blood Culture - Preliminary, Resulted NO GROWTH AFTER 2 DAYS 11/24/16 Gram Stain - Final, Complete 11/19/16 Urine Culture - Final, Complete 11/19/16 Urine Culture Result 1 ([facility]) - Final, Complete Sputum culture noted. To be transfused. Medications Current Medications Sodium Chloride 1,000 ml @ 1,000 mls/hr 1X ONCE IV Last administered on 20:55; Start 11/19/16 at 20:45; Stop 11/19/16 at 21:44; Status DC Famotidine (Pepcid) 40 mg 1X ONCE IVP Last administered on 11/19/16 21:54; Start 11/19/16 at 21:30; Stop 11/19/16 at 21:31; Status DC Ondansetron HCl (Zofran) 4 mg PRN Q8HRS PRN IV NAUSEA/VOMITING Last administered on 11/19/16 21:54; Start 11/19/16 at 21:45; Stop 11/20/16 at 10:44 ; Status DC Morphine Sulfate 2 mg PRN Q2HR PRN IV PAIN; Start 11/19/16 at 21:45; Stop 11/20 at 21:44; Status DC Sodium Chloride 1,000 ml @ 110 mls/hr Q9H6M IV Last administered on 11/20/16 17:53; Start 11/19/16 at 21:41; Stop 11/20/16 at 21:40; Status DC Ondansetron HCl (Zofran) 4 mg PRN Q6HRS PRN IV NAUSEA/VOMITING; Start 11/20/16 at 10:42; Stop 11/21/16 at 10:41; Status DC Famotidine (Pepcid) 20 mg BID IVP Last administered on 11/27/16 08:53; Start 11/20/16 at 11:00 Atorvastatin Calcium (Lipitor) 10 mg QHS PO Last administered on 11/25/16t 22: 06; Start 11/20/16 at 21:00 Dutasteride (Avodart) 0.5 mg DAILY PO ; Start 11/20/16 at 11:00 Labetalol HCl (Normodyne) 10 mg PRN Q2HR PRN IVP HYPERTENSION, SEE COMMENTS; Start 11/20/16 at 10:45 Acetaminophen (Tylenol) 500 mg PRN Q6HRS PRN PO MILD PAIN / TEMP; Start at 10:45 Ondansetron HCl (Zofran) 4 mg PRN Q6HRS PRN IV NAUSEA/VOMITING; Start 11/21/16 at 07:00; Stop 11/22/16 at 06:59; Status DC Fentanyl Citrate (Fentanyl 2ml Vial) 25 mcg PRN Q5MIN PRN IV MILD PAIN; Start 11/21/16 at 07:00; Stop 11/22/16 at 06:59; Status DC Fentanyl Citrate (Fentanyl 2ml Vial) 50 mcg PRN Q5MIN PRN IV MODERATE PAIN; Start 11/21/16 at 07:00; Stop 11/22/16 at 06:59; Status DC Morphine Sulfate 1 mg PRN Q10MIN PRN IV SEVERE PAIN; Start 11/21/16 at 07:00; Stop 11/22/16 at 06:59; Status DC Ringer's Solution 1,000 ml @ 30 mls/hr Q24H IV ; Start 11/21/16 at 07:00; Stop 11/21/16 at 18:59; Status DC Lidocaine HCl 2 ml PRN 1X PRN ID PRIOR TO IV START; Start 11/21/16 at 07:00; Stop 11/22/16 at 06:59; Status DC Hydromorphone HCl (Dilaudid) 0.5 mg PRN Q10MIN PRN IV SEV PAIN, Second choice; Start 11/21/16 at 07:00; Stop 11/22/16 at 06:59; Status DC Prochlorperazine Edisylate (Compazine) 5 mg PACU PRN PRN IV NAUSEA, MRX1; Start 11/21/16 at 07:00; Stop 11/22/16 at 06:59; Status DC Hydralazine HCl (Apresoline) 10 mg PRN Q4HRS PRN IVP ELEVATED BP, SEE COMMENTS ; Start 11/20/16 at 15:30 Propofol 20 ml @ As Directed STK-MED ONCE IV ; Start 11/21/16 at 07:20; Stop at 07:21; Status DC Lidocaine HCl (Lidocaine Pf 2% Vial) 5 ml STK-MED ONCE .ROUTE ; Start 11/21/16 at 07:20; Stop 11/21/16 at 07:21; Status DC Ondansetron HCl (Zofran) 4 mg STK-MED ONCE .ROUTE ; Start 11/21/16 at 07:20; Stop 11/21/16 at 07:21; Status DC Dexamethasone Sodium Phosphate (Decadron) 20 mg STK-MED ONCE .ROUTE ; Start at 07:20; Stop 11/21/16 at 07:21; Status DC Phenylephrine HCl 1 mg STK-MED ONCE IV ; Start 11/21/16 at 07:21; Stop 11/21/16 at 07:22; Status DC Ephedrine Sulfate 50 mg STK-MED ONCE IV ; Start 11/21/16 at 07:21; Stop at 07:22; Status DC Fentanyl Citrate (Fentanyl 5ml Vial) 250 mcg STK-MED ONCE .ROUTE ; Start at 07:21; Stop 11/21/16 at 07:22; Status DC Rocuronium [place] (Zemuron) 50 mg STK-MED ONCE .ROUTE ; Start 11/21/16 at 07:22 ; Stop 11/21/16 at 07:23; Status DC Famotidine (Pepcid) 20 mg STK-MED ONCE .ROUTE ; Start 11/21/16 at 07:23; Stop at 07:24; Status DC Cellulose 1 each STK-MED ONCE .ROUTE Last administered on 11/21/16t 10:29; Start 11/21/16 at 07:33; Stop 11/21/16 at 07:34; Status DC Bupivacaine HCl/ Epinephrine Bitart (Marcaine-Epi 0.5%-[id number]) 50 ml STK-MED ONCE .ROUTE Last administered on 11/21/16t 08:43; Start 11/21/16 at 07:34; Stop 11/21/16 at 07:35; Status DC Cefazolin Sodium/ Dextrose 50 ml @ 100 mls/hr 1X PREOP ONCE IV Last administered on 11/21/16 08:25; Start 11/21/16 at 07:37; Stop 11/21/16 at 08:06 ; Status DC Succinylcholine Chloride (Anectine) 200 mg STK-MED ONCE .ROUTE ; Start 11/21/16 at 07:59; Stop 11/21/16 at 08:00; Status DC Sevoflurane (Ultane) 90 ml STK-MED ONCE IH ; Start 11/21/16 at 09:24; Stop 11/21 at 09:25; Status DC Rocuronium [place] (Zemuron) 50 mg STK-MED ONCE .ROUTE ; Start 11/21/16 at 09:25 ; Stop 11/21/16 at 09:26; Status DC Cellulose 1 each STK-MED ONCE .ROUTE ; Start 11/21/16 at 10:11; Stop 11/21/16 at 10:12; Status DC Sodium Bicarbonate 50 meq STK-MED ONCE .ROUTE ; Start 11/21/16 at 10:34; Stop at 10:35; Status DC Rocuronium [place] (Zemuron) 50 mg STK-MED ONCE .ROUTE ; Start 11/21/16 at 11:00 ; Stop 11/21/16 at 11:01; Status DC Sevoflurane (Ultane) 90 ml STK-MED ONCE IH ; Start 11/21/16 at 12:46; Stop 11/21 at 12:47; Status DC Piperacillin Sod/ Tazobactam Sod 3.375 gm/Sodium Chloride 50 ml @ 100 mls/hr Q6HRS IV Last administered on 11/26/16 11:40; Start 11/21/16 at 14:00; Stop at 14:43; Status DC Fentanyl Citrate (Fentanyl 2ml Vial) 25 mcg PRN Q2HR PRN IV PAIN Last administered on 11/24/16 02:49; Start 11/21/16 at 13:30; Stop 11/25/16 at 12:11 ; Status DC Fentanyl Citrate (Fentanyl 2ml Vial) 50 mcg PRN Q2HR PRN IV PAIN Last administered on 11/23/16 09:50; Start 11/21/16 at 13:30; Stop 11/25/16 at 12:11 ; Status DC Propofol 100 ml @ 0 mls/hr CONT PRN IV PER PROTOCOL Last administered on 04:04; Start 11/21/16 at 13:30 Fentanyl Citrate (Fentanyl 2ml Vial) 25 mcg PRN Q1HR PRN IV COMM Last administered on 11/27/16 06:03; Start 11/21/16 at 13:30 Fentanyl Citrate (Fentanyl 2ml Vial) 50 mcg PRN Q1HR PRN IV COMM Last administered on 11/26/16 23:08; Start 11/21/16 at 13:30 Chlorhexidine Gluconate (Peridex) 15 ml BID MM Last administered on 11/27/16 08:53; Start 11/21/16 at 21:00 Potassium Chloride/Dextrose/ Sod Cl 1,000 ml @ 100 mls/hr Q10H IV Last administered on 11/25/16 08:55; Start 11/21/16 at 15:00; Stop 11/25/16 at 21:59 ; Status DC Albuterol/ Ipratropium (Duoneb) 3 ml RTQID NEB Last administered on 11/27/16 08:03; Start 11/23/16 at 16:00 Amino Acids/ Glycerin/ Electrolytes 1,000 ml @ 80 mls/hr [id number] IV ; Start at 16:15; Stop 11/23/16 at 18:21; Status DC Amino Acids/ Glycerin/ Electrolytes 1,000 ml @ 80 mls/hr [id number] IV Last administered on 11/24/16 08:00; Start 11/23/16 at 21:00; Stop 11/24/16 at 13:45 ; Status DC Amino Acids/ Glycerin/ Electrolytes 1,000 ml @ 80 mls/hr [id number] IV Last administered on 11/25/16 08:22; Start 11/25/16 at 08:00; Stop 11/25/16 at 21:59 ; Status DC Linezolid 300 ml @ 300 mls/hr Q12HR IV Last administered on 11/27/16 08:53; Start 11/25/16 at 10:00 Info 1 each PRN DAILY PRN MC SEE COMMENTS Last administered on 11/27/16 09:45 ; Start 11/25/16 at 11:15 Sodium Acetate 90 meq/Potassium Chloride 50 meq/ Potassium Phosphate 13.6 mmol/ Magnesium Sulfate 10 meq/ Calcium Gluconate 10 meq/ Multivitamins 10 ml/Chromium / Copper/Manganese/ Seleni/Zn 1 ml/ Total Parenteral Nutrition/Amino Acids/ Dextrose 1,512 ml @ 63 mls/hr TPN CONT IV Last administered on 11/25/16 22: 04; Start 11/25/16 at 22:00; Stop 11/26/16 at 21:59; Status DC Sodium Chloride 45 meq/Sodium Acetate 45 meq/ Potassium Chloride 50 meq/ Potassium Phosphate 17 mmol/ Magnesium Sulfate 16 meq/Calcium Gluconate 14 meq/ Multivitamins 10 ml/Chromium/ Copper/Manganese/ Seleni/Zn 1 ml/ Total Parenteral Nutrition/Amino Acids/Dextrose 1,512 ml @ 63 mls/hr TPN CONT IV Last administered on 11/26/16 21:01; Start 11/26/16 at 22:00; Stop 11/27/16 at 21:59 Potassium Phosphate 10 mmol/ Sodium Chloride 103.3333 ml @ 51.667 m... Q2H IV Last administered on 11/26/16 14:54; Start 11/26/16 at 13:30; Stop 11/26/16 at 17:29; Status DC Meropenem 500 mg/ Sodium Chloride 50 ml @ 100 mls/hr Q8HRS IV Last administered on 11/27/16 05:40; Start 11/26/16 at 15:00 Potassium Chloride/Dextrose/ Sod Cl 1,000 ml @ 37 mls/hr Q24H IV Last administered on 11/26/16 20:13; Start 11/26/16 at 20:00 Sodium Chloride 45 meq/Sodium Acetate 45 meq/ Potassium Chloride 50 meq/ Potassium Phosphate 17 mmol/ Magnesium Sulfate 12 meq/Calcium Gluconate 12 meq/ Multivitamins 10 ml/Chromium/ Copper/Manganese/ Seleni/Zn 1 ml/ Total Parenteral Nutrition/Amino Acids/Dextrose/ Fat Emulsion Intravenous 1,512 ml @ 63 mls/hr TPN CONT IV ; Start 11/27/16 at 22:00; Stop 11/28/16 at 21:59 Active Scripts Active Reported Aspir 81 (Aspirin) 81 Mg Tablet.dr 81 Mg PO DAILY Atorvastatin Calcium 10 Mg Tablet 1 Tab PO DAILY Aspirin 81 Mg Tab.chew 1 Tab PO DAILY Avodart (Dutasteride) 0.5 Mg Capsule 1 Cap PO DAILY Vitals/I & O Vital Sign - Last 24 Hours 11/26/16 11/26/16 11/26/16 11/26/16 10:00 10:00 11:00 11:50 Temp 97.8 97.8 Pulse 60 60 Resp 21 20 B/P (MAP) 91/56 (68) 90/56 (67) Pulse Ox 100 100 99 O2 Delivery Ventilator Ventilator Ventilator Mechanical Ventilator 11/26/16 11/26/16 11/26/16 11/26/16 11:50 12:01 13:00 13:45 Pulse 60 60 Resp 27 23 B/P (MAP) 94/62 (73) 91/56 (68) Pulse Ox 100 100 100 100 O2 Delivery Ventilator Ventilator Ventilator Ventilator 11/26/16 11/26/16 11/26/16 11/26/16 14:00 15:00 15:38 16:00 Pulse 60 60 Resp 24 20 B/P (MAP) 96/57 (70) 117/65 (82) Pulse Ox 100 100 100 O2 Delivery Ventilator Ventilator Ventilator Mechanical Ventilator 11/26/16 11/26/16 11/26/16 11/26/16 16:05 17:00 17:25 18:00 Temp 97.9 97.9 Pulse 60 60 60 Resp 24 22 20 B/P (MAP) 120/68 (85) 119/66 (83) 102/47 (65) Pulse Ox 100 100 95 100 O2 Delivery Ventilator Ventilator Ventilator Ventilator 11/26/16 11/26/16 11/26/16 11/26/16 19:00 19:52 20:00 20:00 Temp 99.3 99.3 Pulse 60 60 Resp 30 28 B/P (MAP) 104/50 (68) 97/55 (69) Pulse Ox 97 98 98 O2 Delivery Ventilator Ventilator Ventilator Mechanical Ventilator 11/26/16 11/26/16 11/26/16 11/26/16 21:00 21:55 22:00 23:00 Pulse 60 60 60 Resp 30 28 28 B/P (MAP) 110/58 (75) 80/45 (57) 104/71 (82) Pulse Ox 97 98 98 95 O2 Delivery Ventilator Ventilator Ventilator Ventilator 11/26/16 11/26/16 11/27/16 11/27/16 23:08 23:40 00:00 00:00 Pulse 60 Resp 40 20 28 B/P (MAP) 87/48 (61) Pulse Ox 35 35 99 O2 Delivery Ventilator Ventilator Ventilator Mechanical Ventilator 11/27/16 11/27/16 11/27/16 11/27/16 00:07 01:00 02:00 02:18 Pulse 60 60 Resp 20 22 B/P (MAP) 110/59 (76) 94/50 (65) Pulse Ox 100 100 99 100 O2 Delivery Ventilator Ventilator Ventilator Ventilator 11/27/16 11/27/16 11/27/16 11/27/16 04:00 04:10 04:20 05:10 Pulse 60 Resp 22 35 B/P (MAP) 99/73 (82) Pulse Ox 99 85 99 O2 Delivery Mechanical Ventilator Ventilator Ventilator Ventilator 11/27/16 11/27/16 11/27/16 11/27/16 05:10 05:53 06:03 06:35 Pulse 60 62 Resp 20 28 30 20 B/P (MAP) 84/46 (59) 105/61 (76) Pulse Ox 100 89 88 99 O2 Delivery Ventilator Ventilator Ventilator Ventilator 11/27/16 11/27/16 08:03 09:46 Pulse Ox 94 94 O2 Delivery Ventilator Ventilator Intake and Output 11/26/16 11/26/16 11/27/16 14:59 22:59 06:59 Intake Total 20 ml 1871 ml 1661 ml Output Total 1315 ml 980 ml 700 ml Balance -1295 ml 891 ml 961 ml Problem List Problems Medical Problems: (1) Upper GI bleeding Status: Acute Assessment Post-op gastropexy/sleeve resection. 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 Ileus resolving. Plan of Care: Continue current Tx, Mgmt WILBERTO ROBERTS MD Nov 27, 2016 09:53
[2016-11-27 10:19] LABS: HCO3 ABG 24 mmol/L (21-28); PCO2 ABG 32 mmHg (35-46); PH ABG 7.49 (7.35-7.45); PO2 ABG 75 mmHg (65-108); SAT O2 ABG 95 % (92-99)
[2016-11-27 10:21] LABS: FIO2 ABG 35
--- NOTE | 2016-11-27 13:04 | PDOC ---
QIANA GIBSON [employer] EXAMINER 11/27/16 1304: SURGICAL PROGRESS NOTE Subjective intubated present Vital Signs Vital Signs Date Time Temp Pulse Resp B/P (MAP) Pulse Ox O2 Delivery O2 Flow Rate FiO2 11/27/16 12:59 100 Ventilator 11/27/16 12:00 99.6 60 26 101/60 (74) 99.6 I&O Intake and Output 11/27/16 07:00 Intake Total 3552 ml Output Total 2845 ml Balance 707 ml Intake Oral 0 ml IV Total 3512 ml Other 40 ml Output Urine Total 2335 ml Drainage Total 510 ml # Bowel Movements 1 General: No acute distress HEENT: Other (intubated ) Abdomen: Soft, Other (g tube draining ) Labs Laboratory Tests Test 11/26/16 06:00 11/26/16 08:30 11/27/16 06:00 11/27/16 07:46 White Blood Count 12.6 x10^3/uL (4.0-11.0) 12.4 x10^3/uL (4.0-11.0) Red Blood Count 2.27 x10^6/uL (4.30-5.70) 2.11 x10^6/uL (4.30-5.70) Hemoglobin 7.8 g/dL (13.0-17.5) 7.1 g/dL (13.0-17.5) Hematocrit 22.3 % (39.0-53.0) 21.0 % (39.0-53.0) Mean Corpuscular Volume 98 fL (79-100) 100 fL (79-100) Mean Corpuscular Hemoglobin 34 pg (25-35) 34 pg (25-35) Mean Corpuscular Hemoglobin Concent 35 g/dL (31-37) 34 g/dL (31-37) Red Cell Distribution Width 12.8 % (11.5-14.5) 13.0 % (11.5-14.5) Platelet Count 118 x10^3/uL (140-400) 133 x10^3/uL (140-400) Neutrophils (%) (Auto) 80 % (31-73) 82 % (31-73) Lymphocytes (%) (Auto) 4 % (24-48) 5 % (24-48) Monocytes (%) (Auto) 15 % (0-9) 12 % (0-9) Eosinophils (%) (Auto) 1 % (0-3) 2 % (0-3) Basophils (%) (Auto) 0 % (0-3) 0 % (0-3) Neutrophils # (Auto) 10.1 x10^3uL (1.8-7.7) 10.1 x10^3uL (1.8-7.7) Lymphocytes # (Auto) 0.5 x10^3/uL (1.0-4.8) 0.6 x10^3/uL (1.0-4.8) Monocytes # (Auto) 1.9 x10^3/uL (0.0-1.1) 1.4 x10^3/uL (0.0-1.1) Eosinophils # (Auto) 0.1 x10^3/uL (0.0-0.7) 0.2 x10^3/uL (0.0-0.7) Basophils # (Auto) 0.0 x10^3/uL (0.0-0.2) 0.0 x10^3/uL (0.0-0.2) Sodium Level 143 mmol/L (136-145) 138 mmol/L (136-145) Potassium Level 3.6 mmol/L (3.5-5.1) 4.1 mmol/L (3.5-5.1) Chloride Level 107 mmol/L (98-107) 107 mmol/L (98-107) Carbon Dioxide Level 23 mmol/L (21-32) 26 mmol/L (21-32) Anion Gap 13 (6-14) 5 (6-14) Blood Urea Nitrogen 14 mg/dL (8-26) 16 mg/dL (8-26) Creatinine 0.9 mg/dL (0.7-1.3) 0.7 mg/dL (0.7-1.3) Estimated GFR (Cockcroft-Gault) 80.2 107.2 Glucose Level 261 mg/dL (70-99) 128 mg/dL (70-99) Calcium Level 6.9 mg/dL (8.5-10.1) 8.7 mg/dL (8.5-10.1) Phosphorus Level 2.3 mg/dL (2.6-4.7) 3.8 mg/dL (2.6-4.7) Magnesium Level 1.9 mg/dL (1.8-2.4) 2.4 mg/dL (1.8-2.4) Triglycerides Level 276 mg/dL (0-150) O2 Saturation 95 % (92-99) Arterial Blood pH 7.50 (7.35-7.45) Arterial Blood pCO2 at Patient Temp 28 mmHg (35-46) Arterial Blood pO2 at Patient Temp 77 mmHg (65-108) Arterial Blood HCO3 21 mmol/L (21-28) Arterial Blood Base Excess -1 mmol/L (-3-3) FiO2 35 Glucose (Fingerstick) 90 mg/dL (70-99) Test 11/27/16 07:50 11/27/16 11:11 O2 Saturation 95 % (92-99) Arterial Blood pH 7.49 (7.35-7.45) Arterial Blood pCO2 at Patient Temp 32 mmHg (35-46) Arterial Blood pO2 at Patient Temp 75 mmHg (65-108) Arterial Blood HCO3 24 mmol/L (21-28) Arterial Blood Base Excess 1 mmol/L (-3-3) FiO2 35 Glucose (Fingerstick) 126 mg/dL (70-99) Laboratory Tests Test 11/27/16 06:00 11/27/16 07:46 11/27/16 07:50 11/27/16 11:11 White Blood Count 12.4 x10^3/uL (4.0-11.0) Red Blood Count 2.11 x10^6/uL (4.30-5.70) Hemoglobin 7.1 g/dL (13.0-17.5) Hematocrit 21.0 % (39.0-53.0) Mean Corpuscular Volume 100 fL (79-100) Mean Corpuscular Hemoglobin 34 pg (25-35) Mean Corpuscular Hemoglobin Concent 34 g/dL (31-37) Red Cell Distribution Width 13.0 % (11.5-14.5) Platelet Count 133 x10^3/uL (140-400) Neutrophils (%) (Auto) 82 % (31-73) Lymphocytes (%) (Auto) 5 % (24-48) Monocytes (%) (Auto) 12 % (0-9) Eosinophils (%) (Auto) 2 % (0-3) Basophils (%) (Auto) 0 % (0-3) Neutrophils # (Auto) 10.1 x10^3uL (1.8-7.7) Lymphocytes # (Auto) 0.6 x10^3/uL (1.0-4.8) Monocytes # (Auto) 1.4 x10^3/uL (0.0-1.1) Eosinophils # (Auto) 0.2 x10^3/uL (0.0-0.7) Basophils # (Auto) 0.0 x10^3/uL (0.0-0.2) Sodium Level 138 mmol/L (136-145) Potassium Level 4.1 mmol/L (3.5-5.1) Chloride Level 107 mmol/L (98-107) Carbon Dioxide Level 26 mmol/L (21-32) Anion Gap 5 (6-14) Blood Urea Nitrogen 16 mg/dL (8-26) Creatinine 0.7 mg/dL (0.7-1.3) Estimated GFR (Cockcroft-Gault) 107.2 Glucose Level 128 mg/dL (70-99) Calcium Level 8.7 mg/dL (8.5-10.1) Phosphorus Level 3.8 mg/dL (2.6-4.7) Magnesium Level 2.4 mg/dL (1.8-2.4) Glucose (Fingerstick) 90 mg/dL (70-99) 126 mg/dL (70-99) O2 Saturation 95 % (92-99) Arterial Blood pH 7.49 (7.35-7.45) Arterial Blood pCO2 at Patient Temp 32 mmHg (35-46) Arterial Blood pO2 at Patient Temp 75 mmHg (65-108) Arterial Blood HCO3 24 mmol/L (21-28) Arterial Blood Base Excess 1 mmol/L (-3-3) FiO2 35 Problem List Problems Medical Problems: (1) Upper GI bleeding Status: Acute Assessment/Plan s/p partial gastrectomy resp failure-reviewed pulm notes supportive care Problems: SYDNEE MCCRACKEN MD 11/27/16 1631: SURGICAL PROGRESS NOTE Assessment/Plan Agree with above Problems: QIANA GIBSON APRN Nov 27, 2016 13:04 SYDNEE MCCRACKEN MD Nov 27, 2016 16:31
--- NOTE | 2016-11-27 13:29 | PDOC ---
PROGRESS NOTES Chief Complaint Chief Complaint hematemesis ASSESSMENT AND PLAN: 1. UGIB: s/p Laparoscopic repair of large paraesophageal hernia, open partial gastrectomy, placement of gastrostomy with gastropexy, nutrition as per general surgery. Place PICC line, start TPN, monitor CBC and a CMP 2. Acute respiratory failure: On mechanical ventilation, off sedation, possible aspiration. sputum cx + GNR. on zyvox and zosyn with ID 3. Leukocytosis 4. Arrhythmia: hx pacer placement 5. Prophylaxis: SCDs; medical anticoag contraindicated, mild thrombocytopenia 6. 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 Monitor .2 Uprbc 11/27 HYPOPHOsphatemia: replete Sarkis overall prognosis guarded as per pulm, no trach from family, may try to wean tmr? History of Present Illness History of Present Illness Off sedation failed SBT , tachypnea still fever 99.6 Hb 7.1 from 7.8 from 9.1, no active bleeding No acute events overnight Vitals Vitals Vital Signs Date Time Temp Pulse Resp B/P (MAP) Pulse Ox O2 Delivery O2 Flow Rate FiO2 11/27/16 13:00 60 22 104/56 (72) 100 Ventilator 11/27/16 12:00 99.6 99.6 Physical Exam Physical Exam intubated ,sedated General: No acute distress Heart: Regular rate, Normal S1, Normal S2 Lungs: Crackles Abdomen: Soft, Other (g tube draining ) Extremities: No clubbing, No cyanosis Skin: No rashes, No breakdown Labs LABS Laboratory Tests Test 11/27/16 06:00 11/27/16 07:46 11/27/16 07:50 11/27/16 11:11 White Blood Count 12.4 x10^3/uL (4.0-11.0) Red Blood Count 2.11 x10^6/uL (4.30-5.70) Hemoglobin 7.1 g/dL (13.0-17.5) Hematocrit 21.0 % (39.0-53.0) Mean Corpuscular Volume 100 fL (79-100) Mean Corpuscular Hemoglobin 34 pg (25-35) Mean Corpuscular Hemoglobin Concent 34 g/dL (31-37) Red Cell Distribution Width 13.0 % (11.5-14.5) Platelet Count 133 x10^3/uL (140-400) Neutrophils (%) (Auto) 82 % (31-73) Lymphocytes (%) (Auto) 5 % (24-48) Monocytes (%) (Auto) 12 % (0-9) Eosinophils (%) (Auto) 2 % (0-3) Basophils (%) (Auto) 0 % (0-3) Neutrophils # (Auto) 10.1 x10^3uL (1.8-7.7) Lymphocytes # (Auto) 0.6 x10^3/uL (1.0-4.8) Monocytes # (Auto) 1.4 x10^3/uL (0.0-1.1) Eosinophils # (Auto) 0.2 x10^3/uL (0.0-0.7) Basophils # (Auto) 0.0 x10^3/uL (0.0-0.2) Sodium Level 138 mmol/L (136-145) Potassium Level 4.1 mmol/L (3.5-5.1) Chloride Level 107 mmol/L (98-107) Carbon Dioxide Level 26 mmol/L (21-32) Anion Gap 5 (6-14) Blood Urea Nitrogen 16 mg/dL (8-26) Creatinine 0.7 mg/dL (0.7-1.3) Estimated GFR (Cockcroft-Gault) 107.2 Glucose Level 128 mg/dL (70-99) Calcium Level 8.7 mg/dL (8.5-10.1) Phosphorus Level 3.8 mg/dL (2.6-4.7) Magnesium Level 2.4 mg/dL (1.8-2.4) Glucose (Fingerstick) 90 mg/dL (70-99) 126 mg/dL (70-99) O2 Saturation 95 % (92-99) Arterial Blood pH 7.49 (7.35-7.45) Arterial Blood pCO2 at Patient Temp 32 mmHg (35-46) Arterial Blood pO2 at Patient Temp 75 mmHg (65-108) Arterial Blood HCO3 24 mmol/L (21-28) Arterial Blood Base Excess 1 mmol/L (-3-3) FiO2 35 Review of Systems Review of Systems no chills, Assessment and Plan Assessmemt and Plan Problems Medical Problems: (1) Upper GI bleeding Status: Acute Problems: Comment Review of Relevant I have reviewed the following items cordell (where applicable) has been applied. Labs Laboratory Tests Test 11/26/16 06:00 11/26/16 08:30 11/27/16 06:00 11/27/16 07:46 White Blood Count 12.6 x10^3/uL (4.0-11.0) 12.4 x10^3/uL (4.0-11.0) Red Blood Count 2.27 x10^6/uL (4.30-5.70) 2.11 x10^6/uL (4.30-5.70) Hemoglobin 7.8 g/dL (13.0-17.5) 7.1 g/dL (13.0-17.5) Hematocrit 22.3 % (39.0-53.0) 21.0 % (39.0-53.0) Mean Corpuscular Volume 98 fL (79-100) 100 fL (79-100) Mean Corpuscular Hemoglobin 34 pg (25-35) 34 pg (25-35) Mean Corpuscular Hemoglobin Concent 35 g/dL (31-37) 34 g/dL (31-37) Red Cell Distribution Width 12.8 % (11.5-14.5) 13.0 % (11.5-14.5) Platelet Count 118 x10^3/uL (140-400) 133 x10^3/uL (140-400) Neutrophils (%) (Auto) 80 % (31-73) 82 % (31-73) Lymphocytes (%) (Auto) 4 % (24-48) 5 % (24-48) Monocytes (%) (Auto) 15 % (0-9) 12 % (0-9) Eosinophils (%) (Auto) 1 % (0-3) 2 % (0-3) Basophils (%) (Auto) 0 % (0-3) 0 % (0-3) Neutrophils # (Auto) 10.1 x10^3uL (1.8-7.7) 10.1 x10^3uL (1.8-7.7) Lymphocytes # (Auto) 0.5 x10^3/uL (1.0-4.8) 0.6 x10^3/uL (1.0-4.8) Monocytes # (Auto) 1.9 x10^3/uL (0.0-1.1) 1.4 x10^3/uL (0.0-1.1) Eosinophils # (Auto) 0.1 x10^3/uL (0.0-0.7) 0.2 x10^3/uL (0.0-0.7) Basophils # (Auto) 0.0 x10^3/uL (0.0-0.2) 0.0 x10^3/uL (0.0-0.2) Sodium Level 143 mmol/L (136-145) 138 mmol/L (136-145) Potassium Level 3.6 mmol/L (3.5-5.1) 4.1 mmol/L (3.5-5.1) Chloride Level 107 mmol/L (98-107) 107 mmol/L (98-107) Carbon Dioxide Level 23 mmol/L (21-32) 26 mmol/L (21-32) Anion Gap 13 (6-14) 5 (6-14) Blood Urea Nitrogen 14 mg/dL (8-26) 16 mg/dL (8-26) Creatinine 0.9 mg/dL (0.7-1.3) 0.7 mg/dL (0.7-1.3) Estimated GFR (Cockcroft-Gault) 80.2 107.2 Glucose Level 261 mg/dL (70-99) 128 mg/dL (70-99) Calcium Level 6.9 mg/dL (8.5-10.1) 8.7 mg/dL (8.5-10.1) Phosphorus Level 2.3 mg/dL (2.6-4.7) 3.8 mg/dL (2.6-4.7) Magnesium Level 1.9 mg/dL (1.8-2.4) 2.4 mg/dL (1.8-2.4) Triglycerides Level 276 mg/dL (0-150) O2 Saturation 95 % (92-99) Arterial Blood pH 7.50 (7.35-7.45) Arterial Blood pCO2 at Patient Temp 28 mmHg (35-46) Arterial Blood pO2 at Patient Temp 77 mmHg (65-108) Arterial Blood HCO3 21 mmol/L (21-28) Arterial Blood Base Excess -1 mmol/L (-3-3) FiO2 35 Glucose (Fingerstick) 90 mg/dL (70-99) Test 11/27/16 07:50 11/27/16 11:11 O2 Saturation 95 % (92-99) Arterial Blood pH 7.49 (7.35-7.45) Arterial Blood pCO2 at Patient Temp 32 mmHg (35-46) Arterial Blood pO2 at Patient Temp 75 mmHg (65-108) Arterial Blood HCO3 24 mmol/L (21-28) Arterial Blood Base Excess 1 mmol/L (-3-3) FiO2 35 Glucose (Fingerstick) 126 mg/dL (70-99) Laboratory Tests Test 11/27/16 06:00 11/27/16 07:46 11/27/16 07:50 11/27/16 11:11 White Blood Count 12.4 x10^3/uL (4.0-11.0) Red Blood Count 2.11 x10^6/uL (4.30-5.70) Hemoglobin 7.1 g/dL (13.0-17.5) Hematocrit 21.0 % (39.0-53.0) Mean Corpuscular Volume 100 fL (79-100) Mean Corpuscular Hemoglobin 34 pg (25-35) Mean Corpuscular Hemoglobin Concent 34 g/dL (31-37) Red Cell Distribution Width 13.0 % (11.5-14.5) Platelet Count 133 x10^3/uL (140-400) Neutrophils (%) (Auto) 82 % (31-73) Lymphocytes (%) (Auto) 5 % (24-48) Monocytes (%) (Auto) 12 % (0-9) Eosinophils (%) (Auto) 2 % (0-3) Basophils (%) (Auto) 0 % (0-3) Neutrophils # (Auto) 10.1 x10^3uL (1.8-7.7) Lymphocytes # (Auto) 0.6 x10^3/uL (1.0-4.8) Monocytes # (Auto) 1.4 x10^3/uL (0.0-1.1) Eosinophils # (Auto) 0.2 x10^3/uL (0.0-0.7) Basophils # (Auto) 0.0 x10^3/uL (0.0-0.2) Sodium Level 138 mmol/L (136-145) Potassium Level 4.1 mmol/L (3.5-5.1) Chloride Level 107 mmol/L (98-107) Carbon Dioxide Level 26 mmol/L (21-32) Anion Gap 5 (6-14) Blood Urea Nitrogen 16 mg/dL (8-26) Creatinine 0.7 mg/dL (0.7-1.3) Estimated GFR (Cockcroft-Gault) 107.2 Glucose Level 128 mg/dL (70-99) Calcium Level 8.7 mg/dL (8.5-10.1) Phosphorus Level 3.8 mg/dL (2.6-4.7) Magnesium Level 2.4 mg/dL (1.8-2.4) Glucose (Fingerstick) 90 mg/dL (70-99) 126 mg/dL (70-99) O2 Saturation 95 % (92-99) Arterial Blood pH 7.49 (7.35-7.45) Arterial Blood pCO2 at Patient Temp 32 mmHg (35-46) Arterial Blood pO2 at Patient Temp 75 mmHg (65-108) Arterial Blood HCO3 24 mmol/L (21-28) Arterial Blood Base Excess 1 mmol/L (-3-3) FiO2 35 Microbiology 11/25/16 Blood Culture - Preliminary, Resulted NO GROWTH AFTER 2 DAYS 11/24/16 Gram Stain - Final, Complete 11/19/16 Urine Culture - Final, Complete 11/19/16 Urine Culture Result 1 ([facility]) - Final, Complete Medications Current Medications Sodium Chloride 1,000 ml @ 1,000 mls/hr 1X ONCE IV Last administered on 20:55; Start 11/19/16 at 20:45; Stop 11/19/16 at 21:44; Status DC Famotidine (Pepcid) 40 mg 1X ONCE IVP Last administered on 11/19/16 21:54; Start 11/19/16 at 21:30; Stop 11/19/16 at 21:31; Status DC Ondansetron HCl (Zofran) 4 mg PRN Q8HRS PRN IV NAUSEA/VOMITING Last administered on 11/19/16 21:54; Start 11/19/16 at 21:45; Stop 11/20/16 at 10:44 ; Status DC Morphine Sulfate 2 mg PRN Q2HR PRN IV PAIN; Start 11/19/16 at 21:45; Stop 11/20 at 21:44; Status DC Sodium Chloride 1,000 ml @ 110 mls/hr Q9H6M IV Last administered on 11/20/16 17:53; Start 11/19/16 at 21:41; Stop 11/20/16 at 21:40; Status DC Ondansetron HCl (Zofran) 4 mg PRN Q6HRS PRN IV NAUSEA/VOMITING; Start 11/20/16 at 10:42; Stop 11/21/16 at 10:41; Status DC Famotidine (Pepcid) 20 mg BID IVP Last administered on 11/27/16 08:53; Start 11/20/16 at 11:00 Atorvastatin Calcium (Lipitor) 10 mg QHS PO Last administered on 11/25/16 22: 06; Start 11/20/16 at 21:00 Dutasteride (Avodart) 0.5 mg DAILY PO ; Start 11/20/16 at 11:00 Labetalol HCl (Normodyne) 10 mg PRN Q2HR PRN IVP HYPERTENSION, SEE COMMENTS; Start 11/20/16 at 10:45 Acetaminophen (Tylenol) 500 mg PRN Q6HRS PRN PO MILD PAIN / TEMP; Start at 10:45 Ondansetron HCl (Zofran) 4 mg PRN Q6HRS PRN IV NAUSEA/VOMITING; Start 11/21/16 at 07:00; Stop 11/22/16 at 06:59; Status DC Fentanyl Citrate (Fentanyl 2ml Vial) 25 mcg PRN Q5MIN PRN IV MILD PAIN; Start 11/21/16 at 07:00; Stop 11/22/16 at 06:59; Status DC Fentanyl Citrate (Fentanyl 2ml Vial) 50 mcg PRN Q5MIN PRN IV MODERATE PAIN; Start 11/21/16 at 07:00; Stop 11/22/16 at 06:59; Status DC Morphine Sulfate 1 mg PRN Q10MIN PRN IV SEVERE PAIN; Start 11/21/16 at 07:00; Stop 11/22/16 at 06:59; Status DC Ringer's Solution 1,000 ml @ 30 mls/hr Q24H IV ; Start 11/21/16 at 07:00; Stop 11/21/16 at 18:59; Status DC Lidocaine HCl 2 ml PRN 1X PRN ID PRIOR TO IV START; Start 11/21/16 at 07:00; Stop 11/22/16 at 06:59; Status DC Hydromorphone HCl (Dilaudid) 0.5 mg PRN Q10MIN PRN IV SEV PAIN, Second choice; Start 11/21/16 at 07:00; Stop 11/22/16 at 06:59; Status DC Prochlorperazine Edisylate (Compazine) 5 mg PACU PRN PRN IV NAUSEA, MRX1; Start 11/21/16 at 07:00; Stop 11/22/16 at 06:59; Status DC Hydralazine HCl (Apresoline) 10 mg PRN Q4HRS PRN IVP ELEVATED BP, SEE COMMENTS ; Start 11/20/16 at 15:30 Propofol 20 ml @ As Directed STK-MED ONCE IV ; Start 11/21/16 at 07:20; Stop at 07:21; Status DC Lidocaine HCl (Lidocaine Pf 2% Vial) 5 ml STK-MED ONCE .ROUTE ; Start 11/21/16 at 07:20; Stop 11/21/16 at 07:21; Status DC Ondansetron HCl (Zofran) 4 mg STK-MED ONCE .ROUTE ; Start 11/21/16 at 07:20; Stop 11/21/16 at 07:21; Status DC Dexamethasone Sodium Phosphate (Decadron) 20 mg STK-MED ONCE .ROUTE ; Start at 07:20; Stop 11/21/16 at 07:21; Status DC Phenylephrine HCl 1 mg STK-MED ONCE IV ; Start 11/21/16 at 07:21; Stop 11/21/16 at 07:22; Status DC Ephedrine Sulfate 50 mg STK-MED ONCE IV ; Start 11/21/16 at 07:21; Stop at 07:22; Status DC Fentanyl Citrate (Fentanyl 5ml Vial) 250 mcg STK-MED ONCE .ROUTE ; Start at 07:21; Stop 11/21/16 at 07:22; Status DC Rocuronium [place] (Zemuron) 50 mg STK-MED ONCE .ROUTE ; Start 11/21/16 at 07:22 ; Stop 11/21/16 at 07:23; Status DC Famotidine (Pepcid) 20 mg STK-MED ONCE .ROUTE ; Start 11/21/16 at 07:23; Stop at 07:24; Status DC Cellulose 1 each STK-MED ONCE .ROUTE Last administered on 11/21/16 10:29; Start 11/21/16 at 07:33; Stop 11/21/16 at 07:34; Status DC Bupivacaine HCl/ Epinephrine Bitart (Marcaine-Epi 0.5%-[id number]) 50 ml STK-MED ONCE .ROUTE Last administered on 11/21/16 08:43; Start 11/21/16 at 07:34; Stop 11/21/16 at 07:35; Status DC Cefazolin Sodium/ Dextrose 50 ml @ 100 mls/hr 1X PREOP ONCE IV Last administered on 11/21/16 08:25; Start 11/21/16 at 07:37; Stop 11/21/16 at 08:06 ; Status DC Succinylcholine Chloride (Anectine) 200 mg STK-MED ONCE .ROUTE ; Start 11/21/16 at 07:59; Stop 11/21/16 at 08:00; Status DC Sevoflurane (Ultane) 90 ml STK-MED ONCE IH ; Start 11/21/16 at 09:24; Stop 11/21 at 09:25; Status DC Rocuronium [place] (Zemuron) 50 mg STK-MED ONCE .ROUTE ; Start 11/21/16 at 09:25 ; Stop 11/21/16 at 09:26; Status DC Cellulose 1 each STK-MED ONCE .ROUTE ; Start 11/21/16 at 10:11; Stop 11/21/16 at 10:12; Status DC Sodium Bicarbonate 50 meq STK-MED ONCE .ROUTE ; Start 11/21/16 at 10:34; Stop at 10:35; Status DC Rocuronium [place] (Zemuron) 50 mg STK-MED ONCE .ROUTE ; Start 11/21/16 at 11:00 ; Stop 11/21/16 at 11:01; Status DC Sevoflurane (Ultane) 90 ml STK-MED ONCE IH ; Start 11/21/16 at 12:46; Stop 11/21 at 12:47; Status DC Piperacillin Sod/ Tazobactam Sod 3.375 gm/Sodium Chloride 50 ml @ 100 mls/hr Q6HRS IV Last administered on 11/26/16 11:40; Start 11/21/16 at 14:00; Stop at 14:43; Status DC Fentanyl Citrate (Fentanyl 2ml Vial) 25 mcg PRN Q2HR PRN IV PAIN Last administered on 11/24/16 02:49; Start 11/21/16 at 13:30; Stop 11/25/16 at 12:11 ; Status DC Fentanyl Citrate (Fentanyl 2ml Vial) 50 mcg PRN Q2HR PRN IV PAIN Last administered on 11/23/16 09:50; Start 11/21/16 at 13:30; Stop 11/25/16 at 12:11 ; Status DC Propofol 100 ml @ 0 mls/hr CONT PRN IV PER PROTOCOL Last administered on 11:47; Start 11/21/16 at 13:30 Fentanyl Citrate (Fentanyl 2ml Vial) 25 mcg PRN Q1HR PRN IV COMM Last administered on 11/27/16 06:03; Start 11/21/16 at 13:30 Fentanyl Citrate (Fentanyl 2ml Vial) 50 mcg PRN Q1HR PRN IV COMM Last administered on 11/26/16 23:08; Start 11/21/16 at 13:30 Chlorhexidine Gluconate (Peridex) 15 ml BID MM Last administered on 11/27/16 08:53; Start 11/21/16 at 21:00 Potassium Chloride/Dextrose/ Sod Cl 1,000 ml @ 100 mls/hr Q10H IV Last administered on 11/25/16 08:55; Start 11/21/16 at 15:00; Stop 11/25/16 at 21:59 ; Status DC Albuterol/ Ipratropium (Duoneb) 3 ml RTQID NEB Last administered on 11/27/16 11:16; Start 11/23/16 at 16:00 Amino Acids/ Glycerin/ Electrolytes 1,000 ml @ 80 mls/hr [id number] IV ; Start at 16:15; Stop 11/23/16 at 18:21; Status DC Amino Acids/ Glycerin/ Electrolytes 1,000 ml @ 80 mls/hr [id number] IV Last administered on 11/24/16 08:00; Start 11/23/16 at 21:00; Stop 11/24/16 at 13:45 ; Status DC Amino Acids/ Glycerin/ Electrolytes 1,000 ml @ 80 mls/hr [id number] IV Last administered on 11/25/16 08:22; Start 11/25/16 at 08:00; Stop 11/25/16 at 21:59 ; Status DC Linezolid 300 ml @ 300 mls/hr Q12HR IV Last administered on 11/27/16 08:53; Start 11/25/16 at 10:00 Info 1 each PRN DAILY PRN MC SEE COMMENTS Last administered on 11/27/16 10:28 ; Start 11/25/16 at 11:15 Sodium Acetate 90 meq/Potassium Chloride 50 meq/ Potassium Phosphate 13.6 mmol/ Magnesium Sulfate 10 meq/ Calcium Gluconate 10 meq/ Multivitamins 10 ml/Chromium / Copper/Manganese/ Seleni/Zn 1 ml/ Total Parenteral Nutrition/Amino Acids/ Dextrose 1,512 ml @ 63 mls/hr TPN CONT IV Last administered on 11/25/16 22: 04; Start 11/25/16 at 22:00; Stop 11/26/16 at 21:59; Status DC Sodium Chloride 45 meq/Sodium Acetate 45 meq/ Potassium Chloride 50 meq/ Potassium Phosphate 17 mmol/ Magnesium Sulfate 16 meq/Calcium Gluconate 14 meq/ Multivitamins 10 ml/Chromium/ Copper/Manganese/ Seleni/Zn 1 ml/ Total Parenteral Nutrition/Amino Acids/Dextrose 1,512 ml @ 63 mls/hr TPN CONT IV Last administered on 11/26/16 21:01; Start 11/26/16 at 22:00; Stop 11/27/16 at 21:59 Potassium Phosphate 10 mmol/ Sodium Chloride 103.3333 ml @ 51.667 m... Q2H IV Last administered on 11/26/16 14:54; Start 11/26/16 at 13:30; Stop 11/26/16 at 17:29; Status DC Meropenem 500 mg/ Sodium Chloride 50 ml @ 100 mls/hr Q8HRS IV Last administered on 11/27/16 05:40; Start 11/26/16 at 15:00 Potassium Chloride/Dextrose/ Sod Cl 1,000 ml @ 37 mls/hr Q24H IV Last administered on 11/26/16t 20:13; Start 11/26/16 at 20:00 Sodium Chloride 45 meq/Sodium Acetate 45 meq/ Potassium Chloride 50 meq/ Potassium Phosphate 17 mmol/ Magnesium Sulfate 12 meq/Calcium Gluconate 12 meq/ Multivitamins 10 ml/Chromium/ Copper/Manganese/ Seleni/Zn 1 ml/ Total Parenteral Nutrition/Amino Acids/Dextrose/ Fat Emulsion Intravenous 1,512 ml @ 63 mls/hr TPN CONT IV ; Start 11/27/16 at 22:00; Stop 11/28/16 at 21:59 Active Scripts Active Reported Aspir 81 (Aspirin) 81 Mg Tablet.dr 81 Mg PO DAILY Atorvastatin Calcium 10 Mg Tablet 1 Tab PO DAILY Aspirin 81 Mg Tab.chew 1 Tab PO DAILY Avodart (Dutasteride) 0.5 Mg Capsule 1 Cap PO DAILY Vitals/I & O Vital Sign - Last 24 Hours 11/26/16 11/26/16 11/26/16 11/26/16 13:45 14:00 15:00 15:38 Pulse 60 60 Resp 24 20 B/P (MAP) 96/57 (70) 117/65 (82) Pulse Ox 100 100 100 100 O2 Delivery Ventilator Ventilator Ventilator Ventilator 11/26/16 11/26/16 11/26/16 11/26/16 16:00 16:05 17:00 17:25 Temp 97.9 97.9 Pulse 60 60 Resp 24 22 B/P (MAP) 120/68 (85) 119/66 (83) Pulse Ox 100 100 95 O2 Delivery Mechanical Ventilator Ventilator Ventilator Ventilator 11/26/16 11/26/16 11/26/16 11/26/16 18:00 19:00 19:52 20:00 Temp 99.3 99.3 Pulse 60 60 60 Resp 20 30 28 B/P (MAP) 102/47 (65) 104/50 (68) 97/55 (69) Pulse Ox 100 97 98 98 O2 Delivery Ventilator Ventilator Ventilator Ventilator 11/26/16 11/26/16 11/26/16 11/26/16 20:00 21:00 21:55 22:00 Pulse 60 60 Resp 30 28 B/P (MAP) 110/58 (75) 80/45 (57) Pulse Ox 97 98 98 O2 Delivery Mechanical Ventilator Ventilator Ventilator Ventilator 11/26/16 11/26/16 11/26/16 11/27/16 23:00 23:08 23:40 00:00 Pulse 60 60 Resp 28 40 20 28 B/P (MAP) 104/71 (82) 87/48 (61) Pulse Ox 95 35 35 99 O2 Delivery Ventilator Ventilator Ventilator Ventilator 11/27/16 11/27/16 11/27/16 11/27/16 00:00 00:07 01:00 02:00 Pulse 60 60 Resp 20 22 B/P (MAP) 110/59 (76) 94/50 (65) Pulse Ox 100 100 99 O2 Delivery Mechanical Ventilator Ventilator Ventilator Ventilator 11/27/16 11/27/16 11/27/16 11/27/16 02:18 04:00 04:10 04:20 Pulse 60 Resp 22 35 B/P (MAP) 99/73 (82) Pulse Ox 100 99 85 O2 Delivery Ventilator Mechanical Ventilator Ventilator Ventilator 11/27/16 11/27/16 11/27/16 11/27/16 05:10 05:10 05:53 06:03 Pulse 60 62 Resp 20 28 30 B/P (MAP) 84/46 (59) 105/61 (76) Pulse Ox 99 100 89 88 O2 Delivery Ventilator Ventilator Ventilator Ventilator 11/27/16 11/27/16 11/27/16 11/27/16 06:35 07:00 08:00 08:00 Pulse 60 72 Resp 20 20 30 B/P (MAP) 94/51 (65) 127/61 (83) Pulse Ox 99 100 97 O2 Delivery Ventilator Ventilator Ventilator Mechanical Ventilator 11/27/16 11/27/16 11/27/16 11/27/16 08:03 09:00 09:46 10:00 Pulse 60 62 Resp 19 26 B/P (MAP) 111/57 (75) 138/71 (93) Pulse Ox 94 100 94 92 O2 Delivery Ventilator Ventilator Ventilator Ventilator 11/27/16 11/27/16 11/27/16 11/27/16 11:00 11:16 12:00 12:00 Temp 99.6 99.6 Pulse 60 60 Resp 23 26 B/P (MAP) 97/55 (69) 101/60 (74) Pulse Ox 35 100 100 O2 Delivery Ventilator Ventilator Ventilator Mechanical Ventilator 11/27/16 11/27/16 12:59 13:00 Pulse 60 Resp 22 B/P (MAP) 104/56 (72) Pulse Ox 100 100 O2 Delivery Ventilator Ventilator Intake and Output 11/26/16 11/26/16 11/27/16 15:00 23:00 07:00 Intake Total 20 ml 1871 ml 1661 ml Output Total 1265 ml 920 ml 660 ml Balance -1245 ml 951 ml 1001 ml GUY SORENSON MD Nov 27, 2016 13:29
--- NOTE | 2016-11-27 13:46 | PDOC ---
PULMONARY PROGRESS NOTES Subjective PT SEDATED ON VENT THIS AM WITH INCREASE WORK OF BREATHING Vitals Vital Signs Date Time Temp Pulse Resp B/P (MAP) Pulse Ox O2 Delivery O2 Flow Rate FiO2 11/27/16 13:32 99.5 60 25 117/92 99.5 11/27/16 13:00 100 Ventilator HEENT: Other (nc at perrl, orally intubated, nose clear, neck, no thyromegaly, no lap) Lungs: Crackles Cardiovascular: S1, S2 Abdomen: Soft, Non-tender, Other (no mass) Extremities: No Edema Skin: Warm Labs Laboratory Tests Test 11/26/16 06:00 11/26/16 08:30 11/27/16 06:00 11/27/16 07:46 White Blood Count 12.6 x10^3/uL (4.0-11.0) 12.4 x10^3/uL (4.0-11.0) Red Blood Count 2.27 x10^6/uL (4.30-5.70) 2.11 x10^6/uL (4.30-5.70) Hemoglobin 7.8 g/dL (13.0-17.5) 7.1 g/dL (13.0-17.5) Hematocrit 22.3 % (39.0-53.0) 21.0 % (39.0-53.0) Mean Corpuscular Volume 98 fL (79-100) 100 fL (79-100) Mean Corpuscular Hemoglobin 34 pg (25-35) 34 pg (25-35) Mean Corpuscular Hemoglobin Concent 35 g/dL (31-37) 34 g/dL (31-37) Red Cell Distribution Width 12.8 % (11.5-14.5) 13.0 % (11.5-14.5) Platelet Count 118 x10^3/uL (140-400) 133 x10^3/uL (140-400) Neutrophils (%) (Auto) 80 % (31-73) 82 % (31-73) Lymphocytes (%) (Auto) 4 % (24-48) 5 % (24-48) Monocytes (%) (Auto) 15 % (0-9) 12 % (0-9) Eosinophils (%) (Auto) 1 % (0-3) 2 % (0-3) Basophils (%) (Auto) 0 % (0-3) 0 % (0-3) Neutrophils # (Auto) 10.1 x10^3uL (1.8-7.7) 10.1 x10^3uL (1.8-7.7) Lymphocytes # (Auto) 0.5 x10^3/uL (1.0-4.8) 0.6 x10^3/uL (1.0-4.8) Monocytes # (Auto) 1.9 x10^3/uL (0.0-1.1) 1.4 x10^3/uL (0.0-1.1) Eosinophils # (Auto) 0.1 x10^3/uL (0.0-0.7) 0.2 x10^3/uL (0.0-0.7) Basophils # (Auto) 0.0 x10^3/uL (0.0-0.2) 0.0 x10^3/uL (0.0-0.2) Sodium Level 143 mmol/L (136-145) 138 mmol/L (136-145) Potassium Level 3.6 mmol/L (3.5-5.1) 4.1 mmol/L (3.5-5.1) Chloride Level 107 mmol/L (98-107) 107 mmol/L (98-107) Carbon Dioxide Level 23 mmol/L (21-32) 26 mmol/L (21-32) Anion Gap 13 (6-14) 5 (6-14) Blood Urea Nitrogen 14 mg/dL (8-26) 16 mg/dL (8-26) Creatinine 0.9 mg/dL (0.7-1.3) 0.7 mg/dL (0.7-1.3) Estimated GFR (Cockcroft-Gault) 80.2 107.2 Glucose Level 261 mg/dL (70-99) 128 mg/dL (70-99) Calcium Level 6.9 mg/dL (8.5-10.1) 8.7 mg/dL (8.5-10.1) Phosphorus Level 2.3 mg/dL (2.6-4.7) 3.8 mg/dL (2.6-4.7) Magnesium Level 1.9 mg/dL (1.8-2.4) 2.4 mg/dL (1.8-2.4) Triglycerides Level 276 mg/dL (0-150) O2 Saturation 95 % (92-99) Arterial Blood pH 7.50 (7.35-7.45) Arterial Blood pCO2 at Patient Temp 28 mmHg (35-46) Arterial Blood pO2 at Patient Temp 77 mmHg (65-108) Arterial Blood HCO3 21 mmol/L (21-28) Arterial Blood Base Excess -1 mmol/L (-3-3) FiO2 35 Glucose (Fingerstick) 90 mg/dL (70-99) Test 11/27/16 07:50 11/27/16 11:11 O2 Saturation 95 % (92-99) Arterial Blood pH 7.49 (7.35-7.45) Arterial Blood pCO2 at Patient Temp 32 mmHg (35-46) Arterial Blood pO2 at Patient Temp 75 mmHg (65-108) Arterial Blood HCO3 24 mmol/L (21-28) Arterial Blood Base Excess 1 mmol/L (-3-3) FiO2 35 Glucose (Fingerstick) 126 mg/dL (70-99) Laboratory Tests Test 11/27/16 06:00 11/27/16 07:46 11/27/16 07:50 11/27/16 11:11 White Blood Count 12.4 x10^3/uL (4.0-11.0) Red Blood Count 2.11 x10^6/uL (4.30-5.70) Hemoglobin 7.1 g/dL (13.0-17.5) Hematocrit 21.0 % (39.0-53.0) Mean Corpuscular Volume 100 fL (79-100) Mean Corpuscular Hemoglobin 34 pg (25-35) Mean Corpuscular Hemoglobin Concent 34 g/dL (31-37) Red Cell Distribution Width 13.0 % (11.5-14.5) Platelet Count 133 x10^3/uL (140-400) Neutrophils (%) (Auto) 82 % (31-73) Lymphocytes (%) (Auto) 5 % (24-48) Monocytes (%) (Auto) 12 % (0-9) Eosinophils (%) (Auto) 2 % (0-3) Basophils (%) (Auto) 0 % (0-3) Neutrophils # (Auto) 10.1 x10^3uL (1.8-7.7) Lymphocytes # (Auto) 0.6 x10^3/uL (1.0-4.8) Monocytes # (Auto) 1.4 x10^3/uL (0.0-1.1) Eosinophils # (Auto) 0.2 x10^3/uL (0.0-0.7) Basophils # (Auto) 0.0 x10^3/uL (0.0-0.2) Sodium Level 138 mmol/L (136-145) Potassium Level 4.1 mmol/L (3.5-5.1) Chloride Level 107 mmol/L (98-107) Carbon Dioxide Level 26 mmol/L (21-32) Anion Gap 5 (6-14) Blood Urea Nitrogen 16 mg/dL (8-26) Creatinine 0.7 mg/dL (0.7-1.3) Estimated GFR (Cockcroft-Gault) 107.2 Glucose Level 128 mg/dL (70-99) Calcium Level 8.7 mg/dL (8.5-10.1) Phosphorus Level 3.8 mg/dL (2.6-4.7) Magnesium Level 2.4 mg/dL (1.8-2.4) Glucose (Fingerstick) 90 mg/dL (70-99) 126 mg/dL (70-99) O2 Saturation 95 % (92-99) Arterial Blood pH 7.49 (7.35-7.45) Arterial Blood pCO2 at Patient Temp 32 mmHg (35-46) Arterial Blood pO2 at Patient Temp 75 mmHg (65-108) Arterial Blood HCO3 24 mmol/L (21-28) Arterial Blood Base Excess 1 mmol/L (-3-3) FiO2 35 Medications Active Scripts Medications Dose Route/Sig Max Daily Dose Days Date Category Aspir 81 (Aspirin) 81 Mg Tablet.dr 81 Mg PO DAILY 06/08/14 Reported Atorvastatin Calcium 10 Mg Tablet 1 Tab PO DAILY 03/10/14 Reported Aspirin 81 Mg Tab.chew 1 Tab PO DAILY 01/29/14 Reported Avodart (Dutasteride) 0.5 Mg Capsule 1 Cap PO DAILY 01/29/14 Reported Comments cxr reviewed, Cardiomegaly is unchanged. Bipolar cardiac pacing device is noted. Endotracheal tube is appropriately positioned above the mala. Patchy pulmonary infiltrates in the lungs persist but appear minimally improved. Bilateral pleural effusions are seen. Impression . ACUTE RESP FAILURE MULTIFACTORIAL ASPIRATION PNEUMONIA S/P SEE OP NOTE Laparoscopic repair of large paraesophageal hernia, MELENA ARF ABNL CXR MALNUTRITION DEMENTIA Plan . CONTINUE SUPPORT FOR NOW, WILL D/W DAUGHTER, CONSULT PALLIATIVE CARE IN AM SPOKE WITH PATIENT AND WISHES ARE NOT TO PROCEED WITH TRACH PT HAD A POOR QUALITY OF LIFE PRIOR TO SURGERY WILL CONTINUE AGGRESSIVE MEASURE FOR APPROX 7 DAYS IF NO BETTER WILL D/C SUPPORT AN ALLOW NATURAL BROCH 11/04, ANTIBX BRONCHODILATORS SABRINA VALLEJO MD Nov 27, 2016 13:46
[2016-11-27] MEDS: POTASSIUM CL 20MEQ D5-0.45NACL 1,000 ML IV SCH (20:00)
[2016-11-27] MEDS: ATORVASTATIN CALCIUM 10 MG TABLET. PO SCH (20:05)
[2016-11-27] MEDS ORDERED: DEXTROSE 70% IV SCH ×11 (22:00)
[2016-11-27] MEDS ORDERED: AMINO ACIDS IV SCH ×11 (22:00)
[2016-11-27] MEDS ORDERED: [UNRECOGNIZED DRUG - OTHER] IV SCH ×11 (22:00)
[2016-11-27] MEDS ORDERED: TOTAL PARENTERAL NUTRITION IV SCH ×11 (22:00)
[2016-11-28] VITALS (24 sets, daily range): BP systolic 93–151; BP diastolic 49–80
[2016-11-28] MEDS: PROPOFOL 100 ML IV PRN ×3 (04:41→17:57)
[2016-11-28] MEDS: MEROPENEM 500 MG in IV NORMAL SALINE 50ML 50 ML IV SCH ×3 (06:10→21:32)
[2016-11-28] MEDS: POTASSIUM CL 20MEQ D5-0.45NACL 1,000 ML IV SCH (06:13)
[2016-11-28 06:49] LABS: BASO % 0 % (0-3); EOS % 2 % (0-3); HEMATOCRIT 29.5 % (39.0-53.0); LYMPH # 0.7 x10^3/uL (1.0-4.8); LYMPH % 7 % (24-48); MEAN CORPUSCULAR HEMOGLOBIN 33 pg (25-35); MEAN CORPUSCULAR HGB CONC 34 g/dL (31-37); MEAN CORPUSCULAR VOLUME 98 fL (79-100); MONO % 11 % (0-9); NEUT % 81 % (31-73); PLATELET COUNT 162 x10^3/uL (140-400); RED BLOOD COUNT 3.02 x10^6/uL (4.30-5.70); RED CELL DISTRIBUTION WIDTH 14.7 % (11.5-14.5); WHITE BLOOD COUNT 11.4 x10^3/uL (4.0-11.0)
[2016-11-28 07:03] LABS: CREATININE 0.7 mg/dL (0.7-1.3); GFR 107.2; MAGNESIUM 2.3 mg/dL (1.8-2.4); PHOSPHORUS 3.6 mg/dL (2.6-4.7); POTASSIUM 4.2 mmol/L (3.5-5.1)
--- NOTE | 2016-11-28 07:35 | RAD ---
Portable chest, 11/28/2016: History: Respiratory distress Comparison is made to a study from 11/26/2016. The ET tube is unchanged in position with its tip lying 5-6 cm above the mala. A right-sided transvenous pacemaker remains in place. A left PICC extends into the superior aspect of the right atrium. The heart is mildly enlarged. There are ongoing moderate patchy bilateral pulmonary infiltrates with poor definition of the underlying pulmonary vascularity. There is fibrocalcific pleural plaquing contributing to these bilateral chest opacities. Blunting of the lateral costophrenic angles has worsened compatible with increasing small bilateral pleural effusions. There is no evidence of pneumothorax. IMPRESSION: 1. Stable tube positions. 2. Unchanged moderate patchy bilateral pulmonary infiltrates again suggesting pulmonary edema and/or pneumonia. 3. Increasing small bilateral pleural effusions
--- NOTE | 2016-11-28 08:44 | PDOC ---
Provider Note Provider Note SURG T[place] Partida intubated, sedated belly soft, G tube draining no new surg recs VERONICA SALGADO MD Nov 28, 2016 08:44
[2016-11-28] MEDS: IPRATRPIUM/ALBUTEROL 0.5/2.5MG 3 ML NEBU. NEB SCH ×4 (08:46→20:18)
[2016-11-28 08:56] LABS: HCO3 ABG 23 mmol/L (21-28); PCO2 ABG 31 mmHg (35-46); PH ABG 7.49 (7.35-7.45); PO2 ABG 81 mmHg (65-108); SAT O2 ABG 96 % (92-99)
[2016-11-28 08:58] LABS: FIO2 ABG 35
[2016-11-28] MEDS: DUTASTERIDE 0.5 MG CAPSULE PO SCH (09:00)
[2016-11-28] MEDS: CHLORHEXIDINE 0.12% 15 ML MOUTHWASH. MM SCH ×2 (09:12→21:32)
[2016-11-28] MEDS: FAMOTIDINE 20 MG/2 ML VIAL IVP SCH ×2 (09:12→21:32)
--- NOTE | 2016-11-28 09:47 | PDOC ---
Objective: Vital Signs: Vital Signs Date Time Temp Pulse Resp B/P (MAP) Pulse Ox O2 Delivery O2 Flow Rate FiO2 11/28/16 09:25 100 Ventilator 11/28/16 09:00 60 19 143/58 (86) 11/28/16 08:00 99.7 99.7 Labs: Laboratory Tests Test 11/27/16 11:11 11/27/16 17:11 11/28/16 06:31 11/28/16 06:35 Glucose (Fingerstick) 126 mg/dL 86 mg/dL 129 mg/dL White Blood Count 11.4 x10^3/uL Red Blood Count 3.02 x10^6/uL Hemoglobin 10.0 g/dL Hematocrit 29.5 % Mean Corpuscular Volume 98 fL Mean Corpuscular Hemoglobin 33 pg Mean Corpuscular Hemoglobin Concent 34 g/dL Red Cell Distribution Width 14.7 % Platelet Count 162 x10^3/uL Neutrophils (%) (Auto) 81 % Lymphocytes (%) (Auto) 7 % Monocytes (%) (Auto) 11 % Eosinophils (%) (Auto) 2 % Basophils (%) (Auto) 0 % Neutrophils # (Auto) 9.2 x10^3uL Lymphocytes # (Auto) 0.7 x10^3/uL Monocytes # (Auto) 1.2 x10^3/uL Eosinophils # (Auto) 0.2 x10^3/uL Basophils # (Auto) 0.0 x10^3/uL Sodium Level 139 mmol/L Potassium Level 4.2 mmol/L Chloride Level 106 mmol/L Carbon Dioxide Level 27 mmol/L Anion Gap 6 Blood Urea Nitrogen 17 mg/dL Creatinine 0.7 mg/dL Estimated GFR (Cockcroft-Gault) 107.2 Glucose Level 121 mg/dL Calcium Level 9.0 mg/dL Phosphorus Level 3.6 mg/dL Magnesium Level 2.3 mg/dL Test 11/28/16 08:00 11/28/16 08:59 O2 Saturation 96 % Arterial Blood pH 7.49 Arterial Blood pCO2 at Patient Temp 31 mmHg Arterial Blood pO2 at Patient Temp 81 mmHg Arterial Blood HCO3 23 mmol/L Arterial Blood Base Excess 0 mmol/L FiO2 35 Glucose (Fingerstick) 123 mg/dL PE: Seen w/ Dr. Mendoza. GEN: intuabted LUNGS: vent HEART: RRR ABD: soft NEURO/PSYCH: sedated A/P: S/p gastropexy/sleeve resection Resp failure -- Same per GI. ANGELA SCHNEIDER Nov 28, 2016 09:47
--- NOTE | 2016-11-28 10:01 | PDOC ---
Infectious Disease Note Subjective Subjective Remains intubated. FiO2 35% TPN Low-grade fevers last 24 hours. Tmax 100.2 ROS ROS Unobtainable Vital Sign Vital Signs Vital Signs Date Time Temp Pulse Resp B/P (MAP) Pulse Ox O2 Delivery O2 Flow Rate FiO2 11/28/16 09:25 100 Ventilator 11/28/16 09:00 60 19 143/58 (86) 11/28/16 08:00 99.7 99.7 Physical Exam PHYSICAL EXAM GENERAL: Intubated and sedated HEENT: ETT LUNGS: Diminished aeration. HEART: Normal S1 and S2. Pacemaker. ABDOMEN: Mildly distended. Hypoactive BS, soft. No grimace or guarding to palpation. Gastrostomy tube intact. Midline incision well approx, no redness or drainage GENITOURINARY: Riddle. EXTREMITIES: Trace edema, no cyanosis. SKIN: Without rash. LUE - PICC. Clean (11/24). Labs Lab Laboratory Tests Test 11/27/16 11:11 11/27/16 17:11 11/28/16 06:31 11/28/16 06:35 Glucose (Fingerstick) 126 mg/dL (70-99) 86 mg/dL (70-99) 129 mg/dL (70-99) White Blood Count 11.4 x10^3/uL (4.0-11.0) Red Blood Count 3.02 x10^6/uL (4.30-5.70) Hemoglobin 10.0 g/dL (13.0-17.5) Hematocrit 29.5 % (39.0-53.0) Mean Corpuscular Volume 98 fL (79-100) Mean Corpuscular Hemoglobin 33 pg (25-35) Mean Corpuscular Hemoglobin Concent 34 g/dL (31-37) Red Cell Distribution Width 14.7 % (11.5-14.5) Platelet Count 162 x10^3/uL (140-400) Neutrophils (%) (Auto) 81 % (31-73) Lymphocytes (%) (Auto) 7 % (24-48) Monocytes (%) (Auto) 11 % (0-9) Eosinophils (%) (Auto) 2 % (0-3) Basophils (%) (Auto) 0 % (0-3) Neutrophils # (Auto) 9.2 x10^3uL (1.8-7.7) Lymphocytes # (Auto) 0.7 x10^3/uL (1.0-4.8) Monocytes # (Auto) 1.2 x10^3/uL (0.0-1.1) Eosinophils # (Auto) 0.2 x10^3/uL (0.0-0.7) Basophils # (Auto) 0.0 x10^3/uL (0.0-0.2) Sodium Level 139 mmol/L (136-145) Potassium Level 4.2 mmol/L (3.5-5.1) Chloride Level 106 mmol/L (98-107) Carbon Dioxide Level 27 mmol/L (21-32) Anion Gap 6 (6-14) Blood Urea Nitrogen 17 mg/dL (8-26) Creatinine 0.7 mg/dL (0.7-1.3) Estimated GFR (Cockcroft-Gault) 107.2 Glucose Level 121 mg/dL (70-99) Calcium Level 9.0 mg/dL (8.5-10.1) Phosphorus Level 3.6 mg/dL (2.6-4.7) Magnesium Level 2.3 mg/dL (1.8-2.4) Test 11/28/16 08:00 11/28/16 08:59 O2 Saturation 96 % (92-99) Arterial Blood pH 7.49 (7.35-7.45) Arterial Blood pCO2 at Patient Temp 31 mmHg (35-46) Arterial Blood pO2 at Patient Temp 81 mmHg (65-108) Arterial Blood HCO3 23 mmol/L (21-28) Arterial Blood Base Excess 0 mmol/L (-3-3) FiO2 35 Glucose (Fingerstick) 123 mg/dL (70-99) Portable chest, 11/28/2016: Comparison is made to a study from 11/26/2016. The ET tube is unchanged in position with its tip lying 5-6 cm above the mala. A right-sided transvenous pacemaker remains in place. A left PICC extends into the superior aspect of the right atrium. The heart is mildly enlarged. There are ongoing moderate patchy bilateral pulmonary infiltrates with poor definition of the underlying pulmonary vascularity. There is fibrocalcific pleural plaquing contributing to these bilateral chest opacities. Blunting of the lateral costophrenic angles has worsened compatible with increasing small bilateral pleural effusions. There is no evidence of pneumothorax. IMPRESSION: 1. Stable tube positions. 2. Unchanged moderate patchy bilateral pulmonary infiltrates again suggesting pulmonary edema and/or pneumonia. 3. Increasing small bilateral pleural effusions Micro BLOOD CULTURE Preliminary NO GROWTH AFTER 3 DAY SPUTUM CULT RES 1 Final Enterobacter aerogenes Antibiotic RSLT#1 Cefazolin R Cefepime S Ceftriaxone S Cefuroxime R Ciprofloxacin S Ertapenem S Gentamicin S Imipenem S Levofloxacin S Piperacillin I Tetracycline S Tobramycin S Trimethoprim/Sulfa S Objective Assessment Fever ? reactive blood transfusion Leukocytosis, better Aspiration pneumonia. s/p bronch 11/22. GS: GPC & yeast. Final cx yeast only. 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 Acute respiratory failure Anemia s/p PRBCs 11/27 Pacemaker Dementia Plan Plan of Care Meropenem and Zyvox Monitor WBC, renal function and temp Supportive care Attending Co-Sign The patient was seen and interviewed as well as examined at the bedside. The chart was reviewed. The case was discussed. Agree with the plan of care. d/c zyvox HAWA BEYER APRN Nov 28, 2016 10:01 JANES BEJARANO MD Nov 28, 2016 12:42
[2016-11-28] MEDS: TPN PER PHARMACY MC PRN (10:15)
--- NOTE | 2016-11-28 12:04 | PDOC ---
PULMONARY PROGRESS NOTES Subjective SEDATED ON AC MODE Vitals Vital Signs Date Time Temp Pulse Resp B/P (MAP) Pulse Ox O2 Delivery O2 Flow Rate FiO2 11/28/16 11:00 60 22 133/66 (88) 100 Ventilator 11/28/16 08:00 99.7 99.7 HEENT: Other (nc at perrl, orally intubated, nose clear, neck, no thyromegaly, no lap) Lungs: Crackles Cardiovascular: S1, S2 Abdomen: Soft, Non-tender, Other (no mass) Extremities: No Edema Skin: Warm Labs Laboratory Tests Test 11/27/16 06:00 11/27/16 07:46 11/27/16 07:50 11/27/16 11:11 White Blood Count 12.4 x10^3/uL (4.0-11.0) Red Blood Count 2.11 x10^6/uL (4.30-5.70) Hemoglobin 7.1 g/dL (13.0-17.5) Hematocrit 21.0 % (39.0-53.0) Mean Corpuscular Volume 100 fL (79-100) Mean Corpuscular Hemoglobin 34 pg (25-35) Mean Corpuscular Hemoglobin Concent 34 g/dL (31-37) Red Cell Distribution Width 13.0 % (11.5-14.5) Platelet Count 133 x10^3/uL (140-400) Neutrophils (%) (Auto) 82 % (31-73) Lymphocytes (%) (Auto) 5 % (24-48) Monocytes (%) (Auto) 12 % (0-9) Eosinophils (%) (Auto) 2 % (0-3) Basophils (%) (Auto) 0 % (0-3) Neutrophils # (Auto) 10.1 x10^3uL (1.8-7.7) Lymphocytes # (Auto) 0.6 x10^3/uL (1.0-4.8) Monocytes # (Auto) 1.4 x10^3/uL (0.0-1.1) Eosinophils # (Auto) 0.2 x10^3/uL (0.0-0.7) Basophils # (Auto) 0.0 x10^3/uL (0.0-0.2) Sodium Level 138 mmol/L (136-145) Potassium Level 4.1 mmol/L (3.5-5.1) Chloride Level 107 mmol/L (98-107) Carbon Dioxide Level 26 mmol/L (21-32) Anion Gap 5 (6-14) Blood Urea Nitrogen 16 mg/dL (8-26) Creatinine 0.7 mg/dL (0.7-1.3) Estimated GFR (Cockcroft-Gault) 107.2 Glucose Level 128 mg/dL (70-99) Calcium Level 8.7 mg/dL (8.5-10.1) Phosphorus Level 3.8 mg/dL (2.6-4.7) Magnesium Level 2.4 mg/dL (1.8-2.4) Glucose (Fingerstick) 90 mg/dL (70-99) 126 mg/dL (70-99) O2 Saturation 95 % (92-99) Arterial Blood pH 7.49 (7.35-7.45) Arterial Blood pCO2 at Patient Temp 32 mmHg (35-46) Arterial Blood pO2 at Patient Temp 75 mmHg (65-108) Arterial Blood HCO3 24 mmol/L (21-28) Arterial Blood Base Excess 1 mmol/L (-3-3) FiO2 35 Test 11/27/16 17:11 11/28/16 06:31 11/28/16 06:35 11/28/16 08:00 Glucose (Fingerstick) 86 mg/dL (70-99) 129 mg/dL (70-99) White Blood Count 11.4 x10^3/uL (4.0-11.0) Red Blood Count 3.02 x10^6/uL (4.30-5.70) Hemoglobin 10.0 g/dL (13.0-17.5) Hematocrit 29.5 % (39.0-53.0) Mean Corpuscular Volume 98 fL (79-100) Mean Corpuscular Hemoglobin 33 pg (25-35) Mean Corpuscular Hemoglobin Concent 34 g/dL (31-37) Red Cell Distribution Width 14.7 % (11.5-14.5) Platelet Count 162 x10^3/uL (140-400) Neutrophils (%) (Auto) 81 % (31-73) Lymphocytes (%) (Auto) 7 % (24-48) Monocytes (%) (Auto) 11 % (0-9) Eosinophils (%) (Auto) 2 % (0-3) Basophils (%) (Auto) 0 % (0-3) Neutrophils # (Auto) 9.2 x10^3uL (1.8-7.7) Lymphocytes # (Auto) 0.7 x10^3/uL (1.0-4.8) Monocytes # (Auto) 1.2 x10^3/uL (0.0-1.1) Eosinophils # (Auto) 0.2 x10^3/uL (0.0-0.7) Basophils # (Auto) 0.0 x10^3/uL (0.0-0.2) Sodium Level 139 mmol/L (136-145) Potassium Level 4.2 mmol/L (3.5-5.1) Chloride Level 106 mmol/L (98-107) Carbon Dioxide Level 27 mmol/L (21-32) Anion Gap 6 (6-14) Blood Urea Nitrogen 17 mg/dL (8-26) Creatinine 0.7 mg/dL (0.7-1.3) Estimated GFR (Cockcroft-Gault) 107.2 Glucose Level 121 mg/dL (70-99) Calcium Level 9.0 mg/dL (8.5-10.1) Phosphorus Level 3.6 mg/dL (2.6-4.7) Magnesium Level 2.3 mg/dL (1.8-2.4) O2 Saturation 96 % (92-99) Arterial Blood pH 7.49 (7.35-7.45) Arterial Blood pCO2 at Patient Temp 31 mmHg (35-46) Arterial Blood pO2 at Patient Temp 81 mmHg (65-108) Arterial Blood HCO3 23 mmol/L (21-28) Arterial Blood Base Excess 0 mmol/L (-3-3) FiO2 35 Test 11/28/16 08:59 Glucose (Fingerstick) 123 mg/dL (70-99) Laboratory Tests Test 11/27/16 17:11 11/28/16 06:31 11/28/16 06:35 11/28/16 08:00 Glucose (Fingerstick) 86 mg/dL (70-99) 129 mg/dL (70-99) White Blood Count 11.4 x10^3/uL (4.0-11.0) Red Blood Count 3.02 x10^6/uL (4.30-5.70) Hemoglobin 10.0 g/dL (13.0-17.5) Hematocrit 29.5 % (39.0-53.0) Mean Corpuscular Volume 98 fL (79-100) Mean Corpuscular Hemoglobin 33 pg (25-35) Mean Corpuscular Hemoglobin Concent 34 g/dL (31-37) Red Cell Distribution Width 14.7 % (11.5-14.5) Platelet Count 162 x10^3/uL (140-400) Neutrophils (%) (Auto) 81 % (31-73) Lymphocytes (%) (Auto) 7 % (24-48) Monocytes (%) (Auto) 11 % (0-9) Eosinophils (%) (Auto) 2 % (0-3) Basophils (%) (Auto) 0 % (0-3) Neutrophils # (Auto) 9.2 x10^3uL (1.8-7.7) Lymphocytes # (Auto) 0.7 x10^3/uL (1.0-4.8) Monocytes # (Auto) 1.2 x10^3/uL (0.0-1.1) Eosinophils # (Auto) 0.2 x10^3/uL (0.0-0.7) Basophils # (Auto) 0.0 x10^3/uL (0.0-0.2) Sodium Level 139 mmol/L (136-145) Potassium Level 4.2 mmol/L (3.5-5.1) Chloride Level 106 mmol/L (98-107) Carbon Dioxide Level 27 mmol/L (21-32) Anion Gap 6 (6-14) Blood Urea Nitrogen 17 mg/dL (8-26) Creatinine 0.7 mg/dL (0.7-1.3) Estimated GFR (Cockcroft-Gault) 107.2 Glucose Level 121 mg/dL (70-99) Calcium Level 9.0 mg/dL (8.5-10.1) Phosphorus Level 3.6 mg/dL (2.6-4.7) Magnesium Level 2.3 mg/dL (1.8-2.4) O2 Saturation 96 % (92-99) Arterial Blood pH 7.49 (7.35-7.45) Arterial Blood pCO2 at Patient Temp 31 mmHg (35-46) Arterial Blood pO2 at Patient Temp 81 mmHg (65-108) Arterial Blood HCO3 23 mmol/L (21-28) Arterial Blood Base Excess 0 mmol/L (-3-3) FiO2 35 Test 11/28/16 08:59 Glucose (Fingerstick) 123 mg/dL (70-99) Medications Active Scripts Medications Dose Route/Sig Max Daily Dose Days Date Category Aspir 81 (Aspirin) 81 Mg Tablet.dr 81 Mg PO DAILY 06/08/14 Reported Atorvastatin Calcium 10 Mg Tablet 1 Tab PO DAILY 03/10/14 Reported Aspirin 81 Mg Tab.chew 1 Tab PO DAILY 01/29/14 Reported Avodart (Dutasteride) 0.5 Mg Capsule 1 Cap PO DAILY 01/29/14 Reported Comments cxr reviewed, Cardiomegaly is unchanged. Bipolar cardiac pacing device is noted. Endotracheal tube is appropriately positioned above the mala. Patchy pulmonary infiltrates in the lungs persist but appear minimally improved. Bilateral pleural effusions are seen. Impression . ACUTE RESP FAILURE MULTIFACTORIAL ASPIRATION PNEUMONIA S/P SEE OP NOTE Laparoscopic repair of large paraesophageal hernia, MELENA ARF ABNL CXR MALNUTRITION DEMENTIA Plan . PT MORE AWAKE WILL PLACE ON PS AND SEE HOW HE TOLERATE IT CONTINUE SUPPORT FOR NOW, WILL D/W DAUGHTER, CONSULT PALLIATIVE CARE IN AM SPOKE WITH PATIENT AND WISHES ARE NOT TO PROCEED WITH TRACH PT HAD A POOR QUALITY OF LIFE PRIOR TO SURGERY WILL CONTINUE AGGRESSIVE MEASURE FOR APPROX 7 DAYS IF NO BETTER WILL D/C SUPPORT AN ALLOW NATURAL BROCH 11/04, ANTIBX BRONCHODILATORS SABRINA VALLEJO MD Nov 28, 2016 12:04
--- NOTE | 2016-11-28 12:15 | PDOC ---
PROGRESS NOTES Chief Complaint Chief Complaint hematemesis ASSESSMENT AND PLAN: 1. UGIB: s/p Laparoscopic repair of large paraesophageal hernia, open partial gastrectomy, placement of gastrostomy with gastropexy, nutrition as per general surgery. Place PICC line, start TPN, monitor CBC and a CMP 2. Acute respiratory failure: On mechanical ventilation, off sedation, possible aspiration. sputum cx + GNR. on zyvox and meropenum with ID 3. Leukocytosis 4. Arrhythmia: hx pacer placement 5. Prophylaxis: SCDs; medical anticoag contraindicated, mild thrombocytopenia 6. 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 Monitor .2 Uprbc 11/27 HYPOPHOsphatemia: replete Sarkis overall prognosis guarded as per pulm, no trach from family, may try to wean today or tmr, but likely difficult given bl infiltrates in CXR, if not improving may consider PAT. History of Present Illness History of Present Illness Off sedation failed SBT , tachypnea over the weekend, sedated for 2 days still fever 99.7 daily Hb 7.1 from 7.8 from 9.1, no active bleeding, better to 10 post 2uPRBC No acute events overnight cxr Still not better Vitals Vitals Vital Signs Date Time Temp Pulse Resp B/P (MAP) Pulse Ox O2 Delivery O2 Flow Rate FiO2 11/28/16 11:00 60 22 133/66 (88) 100 Ventilator 11/28/16 08:00 99.7 99.7 Physical Exam Physical Exam intubated ,sedated General: No acute distress Heart: Regular rate, Normal S1, Normal S2 Lungs: Crackles Abdomen: Soft, Other (g tube draining ) Extremities: No clubbing, No cyanosis Skin: No rashes, No breakdown Labs LABS Laboratory Tests Test 11/27/16 17:11 11/28/16 06:31 11/28/16 06:35 11/28/16 08:00 Glucose (Fingerstick) 86 mg/dL (70-99) 129 mg/dL (70-99) White Blood Count 11.4 x10^3/uL (4.0-11.0) Red Blood Count 3.02 x10^6/uL (4.30-5.70) Hemoglobin 10.0 g/dL (13.0-17.5) Hematocrit 29.5 % (39.0-53.0) Mean Corpuscular Volume 98 fL (79-100) Mean Corpuscular Hemoglobin 33 pg (25-35) Mean Corpuscular Hemoglobin Concent 34 g/dL (31-37) Red Cell Distribution Width 14.7 % (11.5-14.5) Platelet Count 162 x10^3/uL (140-400) Neutrophils (%) (Auto) 81 % (31-73) Lymphocytes (%) (Auto) 7 % (24-48) Monocytes (%) (Auto) 11 % (0-9) Eosinophils (%) (Auto) 2 % (0-3) Basophils (%) (Auto) 0 % (0-3) Neutrophils # (Auto) 9.2 x10^3uL (1.8-7.7) Lymphocytes # (Auto) 0.7 x10^3/uL (1.0-4.8) Monocytes # (Auto) 1.2 x10^3/uL (0.0-1.1) Eosinophils # (Auto) 0.2 x10^3/uL (0.0-0.7) Basophils # (Auto) 0.0 x10^3/uL (0.0-0.2) Sodium Level 139 mmol/L (136-145) Potassium Level 4.2 mmol/L (3.5-5.1) Chloride Level 106 mmol/L (98-107) Carbon Dioxide Level 27 mmol/L (21-32) Anion Gap 6 (6-14) Blood Urea Nitrogen 17 mg/dL (8-26) Creatinine 0.7 mg/dL (0.7-1.3) Estimated GFR (Cockcroft-Gault) 107.2 Glucose Level 121 mg/dL (70-99) Calcium Level 9.0 mg/dL (8.5-10.1) Phosphorus Level 3.6 mg/dL (2.6-4.7) Magnesium Level 2.3 mg/dL (1.8-2.4) O2 Saturation 96 % (92-99) Arterial Blood pH 7.49 (7.35-7.45) Arterial Blood pCO2 at Patient Temp 31 mmHg (35-46) Arterial Blood pO2 at Patient Temp 81 mmHg (65-108) Arterial Blood HCO3 23 mmol/L (21-28) Arterial Blood Base Excess 0 mmol/L (-3-3) FiO2 35 Test 11/28/16 08:59 Glucose (Fingerstick) 123 mg/dL (70-99) Review of Systems Review of Systems no fever, chills, Assessment and Plan Assessmemt and Plan Problems Medical Problems: (1) Upper GI bleeding Status: Acute Problems: Comment Review of Relevant I have reviewed the following items cordell (where applicable) has been applied. Labs Laboratory Tests Test 11/27/16 06:00 11/27/16 07:46 11/27/16 07:50 11/27/16 11:11 White Blood Count 12.4 x10^3/uL (4.0-11.0) Red Blood Count 2.11 x10^6/uL (4.30-5.70) Hemoglobin 7.1 g/dL (13.0-17.5) Hematocrit 21.0 % (39.0-53.0) Mean Corpuscular Volume 100 fL (79-100) Mean Corpuscular Hemoglobin 34 pg (25-35) Mean Corpuscular Hemoglobin Concent 34 g/dL (31-37) Red Cell Distribution Width 13.0 % (11.5-14.5) Platelet Count 133 x10^3/uL (140-400) Neutrophils (%) (Auto) 82 % (31-73) Lymphocytes (%) (Auto) 5 % (24-48) Monocytes (%) (Auto) 12 % (0-9) Eosinophils (%) (Auto) 2 % (0-3) Basophils (%) (Auto) 0 % (0-3) Neutrophils # (Auto) 10.1 x10^3uL (1.8-7.7) Lymphocytes # (Auto) 0.6 x10^3/uL (1.0-4.8) Monocytes # (Auto) 1.4 x10^3/uL (0.0-1.1) Eosinophils # (Auto) 0.2 x10^3/uL (0.0-0.7) Basophils # (Auto) 0.0 x10^3/uL (0.0-0.2) Sodium Level 138 mmol/L (136-145) Potassium Level 4.1 mmol/L (3.5-5.1) Chloride Level 107 mmol/L (98-107) Carbon Dioxide Level 26 mmol/L (21-32) Anion Gap 5 (6-14) Blood Urea Nitrogen 16 mg/dL (8-26) Creatinine 0.7 mg/dL (0.7-1.3) Estimated GFR (Cockcroft-Gault) 107.2 Glucose Level 128 mg/dL (70-99) Calcium Level 8.7 mg/dL (8.5-10.1) Phosphorus Level 3.8 mg/dL (2.6-4.7) Magnesium Level 2.4 mg/dL (1.8-2.4) Glucose (Fingerstick) 90 mg/dL (70-99) 126 mg/dL (70-99) O2 Saturation 95 % (92-99) Arterial Blood pH 7.49 (7.35-7.45) Arterial Blood pCO2 at Patient Temp 32 mmHg (35-46) Arterial Blood pO2 at Patient Temp 75 mmHg (65-108) Arterial Blood HCO3 24 mmol/L (21-28) Arterial Blood Base Excess 1 mmol/L (-3-3) FiO2 35 Test 11/27/16 17:11 11/28/16 06:31 11/28/16 06:35 11/28/16 08:00 Glucose (Fingerstick) 86 mg/dL (70-99) 129 mg/dL (70-99) White Blood Count 11.4 x10^3/uL (4.0-11.0) Red Blood Count 3.02 x10^6/uL (4.30-5.70) Hemoglobin 10.0 g/dL (13.0-17.5) Hematocrit 29.5 % (39.0-53.0) Mean Corpuscular Volume 98 fL (79-100) Mean Corpuscular Hemoglobin 33 pg (25-35) Mean Corpuscular Hemoglobin Concent 34 g/dL (31-37) Red Cell Distribution Width 14.7 % (11.5-14.5) Platelet Count 162 x10^3/uL (140-400) Neutrophils (%) (Auto) 81 % (31-73) Lymphocytes (%) (Auto) 7 % (24-48) Monocytes (%) (Auto) 11 % (0-9) Eosinophils (%) (Auto) 2 % (0-3) Basophils (%) (Auto) 0 % (0-3) Neutrophils # (Auto) 9.2 x10^3uL (1.8-7.7) Lymphocytes # (Auto) 0.7 x10^3/uL (1.0-4.8) Monocytes # (Auto) 1.2 x10^3/uL (0.0-1.1) Eosinophils # (Auto) 0.2 x10^3/uL (0.0-0.7) Basophils # (Auto) 0.0 x10^3/uL (0.0-0.2) Sodium Level 139 mmol/L (136-145) Potassium Level 4.2 mmol/L (3.5-5.1) Chloride Level 106 mmol/L (98-107) Carbon Dioxide Level 27 mmol/L (21-32) Anion Gap 6 (6-14) Blood Urea Nitrogen 17 mg/dL (8-26) Creatinine 0.7 mg/dL (0.7-1.3) Estimated GFR (Cockcroft-Gault) 107.2 Glucose Level 121 mg/dL (70-99) Calcium Level 9.0 mg/dL (8.5-10.1) Phosphorus Level 3.6 mg/dL (2.6-4.7) Magnesium Level 2.3 mg/dL (1.8-2.4) O2 Saturation 96 % (92-99) Arterial Blood pH 7.49 (7.35-7.45) Arterial Blood pCO2 at Patient Temp 31 mmHg (35-46) Arterial Blood pO2 at Patient Temp 81 mmHg (65-108) Arterial Blood HCO3 23 mmol/L (21-28) Arterial Blood Base Excess 0 mmol/L (-3-3) FiO2 35 Test 11/28/16 08:59 Glucose (Fingerstick) 123 mg/dL (70-99) Laboratory Tests Test 11/27/16 17:11 11/28/16 06:31 11/28/16 06:35 11/28/16 08:00 Glucose (Fingerstick) 86 mg/dL (70-99) 129 mg/dL (70-99) White Blood Count 11.4 x10^3/uL (4.0-11.0) Red Blood Count 3.02 x10^6/uL (4.30-5.70) Hemoglobin 10.0 g/dL (13.0-17.5) Hematocrit 29.5 % (39.0-53.0) Mean Corpuscular Volume 98 fL (79-100) Mean Corpuscular Hemoglobin 33 pg (25-35) Mean Corpuscular Hemoglobin Concent 34 g/dL (31-37) Red Cell Distribution Width 14.7 % (11.5-14.5) Platelet Count 162 x10^3/uL (140-400) Neutrophils (%) (Auto) 81 % (31-73) Lymphocytes (%) (Auto) 7 % (24-48) Monocytes (%) (Auto) 11 % (0-9) Eosinophils (%) (Auto) 2 % (0-3) Basophils (%) (Auto) 0 % (0-3) Neutrophils # (Auto) 9.2 x10^3uL (1.8-7.7) Lymphocytes # (Auto) 0.7 x10^3/uL (1.0-4.8) Monocytes # (Auto) 1.2 x10^3/uL (0.0-1.1) Eosinophils # (Auto) 0.2 x10^3/uL (0.0-0.7) Basophils # (Auto) 0.0 x10^3/uL (0.0-0.2) Sodium Level 139 mmol/L (136-145) Potassium Level 4.2 mmol/L (3.5-5.1) Chloride Level 106 mmol/L (98-107) Carbon Dioxide Level 27 mmol/L (21-32) Anion Gap 6 (6-14) Blood Urea Nitrogen 17 mg/dL (8-26) Creatinine 0.7 mg/dL (0.7-1.3) Estimated GFR (Cockcroft-Gault) 107.2 Glucose Level 121 mg/dL (70-99) Calcium Level 9.0 mg/dL (8.5-10.1) Phosphorus Level 3.6 mg/dL (2.6-4.7) Magnesium Level 2.3 mg/dL (1.8-2.4) O2 Saturation 96 % (92-99) Arterial Blood pH 7.49 (7.35-7.45) Arterial Blood pCO2 at Patient Temp 31 mmHg (35-46) Arterial Blood pO2 at Patient Temp 81 mmHg (65-108) Arterial Blood HCO3 23 mmol/L (21-28) Arterial Blood Base Excess 0 mmol/L (-3-3) FiO2 35 Test 11/28/16 08:59 Glucose (Fingerstick) 123 mg/dL (70-99) Microbiology 11/25/16 Blood Culture - Preliminary, Resulted NO GROWTH AFTER 3 DAYS 11/24/16 Gram Stain - Final, Complete 11/19/16 Urine Culture - Final, Complete 11/19/16 Urine Culture Result 1 ([facility]) - Final, Complete Medications Current Medications Sodium Chloride 1,000 ml @ 1,000 mls/hr 1X ONCE IV Last administered on 20:55; Start 11/19/16 at 20:45; Stop 11/19/16 at 21:44; Status DC Famotidine (Pepcid) 40 mg 1X ONCE IVP Last administered on 11/19/16 21:54; Start 11/19/16 at 21:30; Stop 11/19/16 at 21:31; Status DC Ondansetron HCl (Zofran) 4 mg PRN Q8HRS PRN IV NAUSEA/VOMITING Last administered on 11/19/16 21:54; Start 11/19/16 at 21:45; Stop 11/20/16 at 10:44 ; Status DC Morphine Sulfate 2 mg PRN Q2HR PRN IV PAIN; Start 11/19/16 at 21:45; Stop 11/20 at 21:44; Status DC Sodium Chloride 1,000 ml @ 110 mls/hr Q9H6M IV Last administered on 11/20/16 17:53; Start 11/19/16 at 21:41; Stop 11/20/16 at 21:40; Status DC Ondansetron HCl (Zofran) 4 mg PRN Q6HRS PRN IV NAUSEA/VOMITING; Start 11/20/16 at 10:42; Stop 11/21/16 at 10:41; Status DC Famotidine (Pepcid) 20 mg BID IVP Last administered on 11/28/16 09:12; Start 11/20/16 at 11:00 Atorvastatin Calcium (Lipitor) 10 mg QHS PO Last administered on 11/25/16 22: 06; Start 11/20/16 at 21:00 Dutasteride (Avodart) 0.5 mg DAILY PO ; Start 11/20/16 at 11:00 Labetalol HCl (Normodyne) 10 mg PRN Q2HR PRN IVP HYPERTENSION, SEE COMMENTS; Start 11/20/16 at 10:45 Acetaminophen (Tylenol) 500 mg PRN Q6HRS PRN PO MILD PAIN / TEMP; Start at 10:45 Ondansetron HCl (Zofran) 4 mg PRN Q6HRS PRN IV NAUSEA/VOMITING; Start 11/21/16 at 07:00; Stop 11/22/16 at 06:59; Status DC Fentanyl Citrate (Fentanyl 2ml Vial) 25 mcg PRN Q5MIN PRN IV MILD PAIN; Start 11/21/16 at 07:00; Stop 11/22/16 at 06:59; Status DC Fentanyl Citrate (Fentanyl 2ml Vial) 50 mcg PRN Q5MIN PRN IV MODERATE PAIN; Start 11/21/16 at 07:00; Stop 11/22/16 at 06:59; Status DC Morphine Sulfate 1 mg PRN Q10MIN PRN IV SEVERE PAIN; Start 11/21/16 at 07:00; Stop 11/22/16 at 06:59; Status DC Ringer's Solution 1,000 ml @ 30 mls/hr Q24H IV ; Start 11/21/16 at 07:00; Stop 11/21/16 at 18:59; Status DC Lidocaine HCl 2 ml PRN 1X PRN ID PRIOR TO IV START; Start 11/21/16 at 07:00; Stop 11/22/16 at 06:59; Status DC Hydromorphone HCl (Dilaudid) 0.5 mg PRN Q10MIN PRN IV SEV PAIN, Second choice; Start 11/21/16 at 07:00; Stop 11/22/16 at 06:59; Status DC Prochlorperazine Edisylate (Compazine) 5 mg PACU PRN PRN IV NAUSEA, MRX1; Start 11/21/16 at 07:00; Stop 11/22/16 at 06:59; Status DC Hydralazine HCl (Apresoline) 10 mg PRN Q4HRS PRN IVP ELEVATED BP, SEE COMMENTS ; Start 11/20/16 at 15:30 Propofol 20 ml @ As Directed STK-MED ONCE IV ; Start 11/21/16 at 07:20; Stop at 07:21; Status DC Lidocaine HCl (Lidocaine Pf 2% Vial) 5 ml STK-MED ONCE .ROUTE ; Start 11/21/16 at 07:20; Stop 11/21/16 at 07:21; Status DC Ondansetron HCl (Zofran) 4 mg STK-MED ONCE .ROUTE ; Start 11/21/16 at 07:20; Stop 11/21/16 at 07:21; Status DC Dexamethasone Sodium Phosphate (Decadron) 20 mg STK-MED ONCE .ROUTE ; Start at 07:20; Stop 11/21/16 at 07:21; Status DC Phenylephrine HCl 1 mg STK-MED ONCE IV ; Start 11/21/16 at 07:21; Stop 11/21/16 at 07:22; Status DC Ephedrine Sulfate 50 mg STK-MED ONCE IV ; Start 11/21/16 at 07:21; Stop at 07:22; Status DC Fentanyl Citrate (Fentanyl 5ml Vial) 250 mcg STK-MED ONCE .ROUTE ; Start at 07:21; Stop 11/21/16 at 07:22; Status DC Rocuronium [place] (Zemuron) 50 mg STK-MED ONCE .ROUTE ; Start 11/21/16 at 07:22 ; Stop 11/21/16 at 07:23; Status DC Famotidine (Pepcid) 20 mg STK-MED ONCE .ROUTE ; Start 11/21/16 at 07:23; Stop at 07:24; Status DC Cellulose 1 each STK-MED ONCE .ROUTE Last administered on 11/21/16 10:29; Start 11/21/16 at 07:33; Stop 11/21/16 at 07:34; Status DC Bupivacaine HCl/ Epinephrine Bitart (Marcaine-Epi 0.5%-[id number]) 50 ml STK-MED ONCE .ROUTE Last administered on 11/21/16 08:43; Start 11/21/16 at 07:34; Stop 11/21/16 at 07:35; Status DC Cefazolin Sodium/ Dextrose 50 ml @ 100 mls/hr 1X PREOP ONCE IV Last administered on 11/21/16 08:25; Start 11/21/16 at 07:37; Stop 11/21/16 at 08:06 ; Status DC Succinylcholine Chloride (Anectine) 200 mg STK-MED ONCE .ROUTE ; Start 11/21/16 at 07:59; Stop 11/21/16 at 08:00; Status DC Sevoflurane (Ultane) 90 ml STK-MED ONCE IH ; Start 11/21/16 at 09:24; Stop 11/21 at 09:25; Status DC Rocuronium [place] (Zemuron) 50 mg STK-MED ONCE .ROUTE ; Start 11/21/16 at 09:25 ; Stop 11/21/16 at 09:26; Status DC Cellulose 1 each STK-MED ONCE .ROUTE ; Start 11/21/16 at 10:11; Stop 11/21/16 at 10:12; Status DC Sodium Bicarbonate 50 meq STK-MED ONCE .ROUTE ; Start 11/21/16 at 10:34; Stop at 10:35; Status DC Rocuronium [place] (Zemuron) 50 mg STK-MED ONCE .ROUTE ; Start 11/21/16 at 11:00 ; Stop 11/21/16 at 11:01; Status DC Sevoflurane (Ultane) 90 ml STK-MED ONCE IH ; Start 11/21/16 at 12:46; Stop 11/21 at 12:47; Status DC Piperacillin Sod/ Tazobactam Sod 3.375 gm/Sodium Chloride 50 ml @ 100 mls/hr Q6HRS IV Last administered on 11/26/16 11:40; Start 11/21/16 at 14:00; Stop at 14:43; Status DC Fentanyl Citrate (Fentanyl 2ml Vial) 25 mcg PRN Q2HR PRN IV PAIN Last administered on 11/24/16 02:49; Start 11/21/16 at 13:30; Stop 11/25/16 at 12:11 ; Status DC Fentanyl Citrate (Fentanyl 2ml Vial) 50 mcg PRN Q2HR PRN IV PAIN Last administered on 11/23/16 09:50; Start 11/21/16 at 13:30; Stop 11/25/16 at 12:11 ; Status DC Propofol 100 ml @ 0 mls/hr CONT PRN IV PER PROTOCOL Last administered on 11:54; Start 11/21/16 at 13:30 Fentanyl Citrate (Fentanyl 2ml Vial) 25 mcg PRN Q1HR PRN IV COMM Last administered on 11/27/16 06:03; Start 11/21/16 at 13:30 Fentanyl Citrate (Fentanyl 2ml Vial) 50 mcg PRN Q1HR PRN IV COMM Last administered on 11/26/16 23:08; Start 11/21/16 at 13:30 Chlorhexidine Gluconate (Peridex) 15 ml BID MM Last administered on 11/28/16 09:12; Start 11/21/16 at 21:00 Potassium Chloride/Dextrose/ Sod Cl 1,000 ml @ 100 mls/hr Q10H IV Last administered on 11/25/16 08:55; Start 11/21/16 at 15:00; Stop 11/25/16 at 21:59 ; Status DC Albuterol/ Ipratropium (Duoneb) 3 ml RTQID NEB Last administered on 11/28/16 08:46; Start 11/23/16 at 16:00 Amino Acids/ Glycerin/ Electrolytes 1,000 ml @ 80 mls/hr [id number] IV ; Start at 16:15; Stop 11/23/16 at 18:21; Status DC Amino Acids/ Glycerin/ Electrolytes 1,000 ml @ 80 mls/hr [id number] IV Last administered on 11/24/16 08:00; Start 11/23/16 at 21:00; Stop 11/24/16 at 13:45 ; Status DC Amino Acids/ Glycerin/ Electrolytes 1,000 ml @ 80 mls/hr [id number] IV Last administered on 11/25/16 08:22; Start 11/25/16 at 08:00; Stop 11/25/16 at 21:59 ; Status DC Linezolid 300 ml @ 300 mls/hr Q12HR IV Last administered on 11/28/16 09:12; Start 11/25/16 at 10:00 Info 1 each PRN DAILY PRN MC SEE COMMENTS Last administered on 11/28/16 10:15 ; Start 11/25/16 at 11:15 Sodium Acetate 90 meq/Potassium Chloride 50 meq/ Potassium Phosphate 13.6 mmol/ Magnesium Sulfate 10 meq/ Calcium Gluconate 10 meq/ Multivitamins 10 ml/Chromium / Copper/Manganese/ Seleni/Zn 1 ml/ Total Parenteral Nutrition/Amino Acids/ Dextrose 1,512 ml @ 63 mls/hr TPN CONT IV Last administered on 11/25/16 22: 04; Start 11/25/16 at 22:00; Stop 11/26/16 at 21:59; Status DC Sodium Chloride 45 meq/Sodium Acetate 45 meq/ Potassium Chloride 50 meq/ Potassium Phosphate 17 mmol/ Magnesium Sulfate 16 meq/Calcium Gluconate 14 meq/ Multivitamins 10 ml/Chromium/ Copper/Manganese/ Seleni/Zn 1 ml/ Total Parenteral Nutrition/Amino Acids/Dextrose 1,512 ml @ 63 mls/hr TPN CONT IV Last administered on 11/26/16 21:01; Start 11/26/16 at 22:00; Stop 11/27/16 at 21:59; Status DC Potassium Phosphate 10 mmol/ Sodium Chloride 103.3333 ml @ 51.667 m... Q2H IV Last administered on 11/26/16 14:54; Start 11/26/16 at 13:30; Stop 11/26/16 at 17:29; Status DC Meropenem 500 mg/ Sodium Chloride 50 ml @ 100 mls/hr Q8HRS IV Last administered on 11/28/16 11:55; Start 11/26/16 at 15:00 Potassium Chloride/Dextrose/ Sod Cl 1,000 ml @ 37 mls/hr Q24H IV Last administered on 11/28/16 06:13; Start 11/26/16 at 20:00 Sodium Chloride 45 meq/Sodium Acetate 45 meq/ Potassium Chloride 50 meq/ Potassium Phosphate 17 mmol/ Magnesium Sulfate 12 meq/Calcium Gluconate 12 meq/ Multivitamins 10 ml/Chromium/ Copper/Manganese/ Seleni/Zn 1 ml/ Total Parenteral Nutrition/Amino Acids/Dextrose/ Fat Emulsion Intravenous 1,512 ml @ 63 mls/hr TPN CONT IV Last administered on 11/27/16 22:11; Start 11/27/16 at 22:00; Stop 11/28/16 at 21:59 Sodium Chloride 45 meq/Sodium Acetate 45 meq/ Potassium Chloride 50 meq/ Potassium Phosphate 17 mmol/ Magnesium Sulfate 12 meq/Calcium Gluconate 10 meq/ Multivitamins 10 ml/Chromium/ Copper/Manganese/ Seleni/Zn 1 ml/ Total Parenteral Nutrition/Amino Acids/Dextrose 1,512 ml @ 63 mls/hr TPN CONT IV ; Start 11/28/16 at 22:00; Stop 11/29/16 at 21:59 Active Scripts Active Reported Aspir 81 (Aspirin) 81 Mg Tablet.dr 81 Mg PO DAILY Atorvastatin Calcium 10 Mg Tablet 1 Tab PO DAILY Aspirin 81 Mg Tab.chew 1 Tab PO DAILY Avodart (Dutasteride) 0.5 Mg Capsule 1 Cap PO DAILY Vitals/I & O Vital Sign - Last 24 Hours 11/27/16 11/27/16 11/27/16 11/27/16 12:59 13:00 13:32 13:45 Temp 99.5 99.1 99.5 99.1 Pulse 60 60 60 Resp 22 25 18 B/P (MAP) 104/56 (72) 117/92 95/61 Pulse Ox 100 100 O2 Delivery Ventilator Ventilator 11/27/16 11/27/16 11/27/16 11/27/16 14:00 14:08 14:49 14:58 Temp 99.0 99.1 99.0 99.1 Pulse 60 60 60 Resp 26 B/P (MAP) 105/58 (74) 105/58 114/60 Pulse Ox 100 100 O2 Delivery Ventilator Ventilator 11/27/16 11/27/16 11/27/16 11/27/16 15:00 15:45 15:57 16:00 Temp 99.2 100.2 99.2 100.2 Pulse 60 61 69 Resp 20 31 22 B/P (MAP) 114/65 (81) 111/59 108/53 Pulse Ox 100 O2 Delivery Ventilator Mechanical Ventilator 11/27/16 11/27/16 11/27/16 11/27/16 16:00 16:27 16:43 16:44 Temp 100.1 100.2 99.6 100.1 100.2 99.6 Pulse 62 60 61 Resp 25 20 20 B/P (MAP) 105/47 (66) 114/56 109/54 Pulse Ox 100 100 O2 Delivery Ventilator Ventilator 11/27/16 11/27/16 11/27/16 11/27/16 17:00 18:00 19:13 19:55 Temp 98.4 98.4 Pulse 61 63 60 Resp 23 25 20 B/P (MAP) 115/57 (76) 126/64 (84) 99/53 (68) Pulse Ox 100 100 100 100 O2 Delivery Ventilator Ventilator Ventilator Ventilator 7/11/27/16 11/27/16 11/27/16 20:00 20:09 21:00 21:04 Pulse 60 60 Resp 20 20 B/P (MAP) 153/61 (91) 123/60 (81) Pulse Ox 100 97 100 O2 Delivery Mechanical Ventilator Ventilator Ventilator Ventilator 11/27/16 11/27/16 11/27/16 11/28/16 22:00 23:00 23:25 00:00 Pulse 60 60 Resp 20 20 B/P (MAP) 124/58 (80) 127/58 (81) Pulse Ox 98 99 99 O2 Delivery Ventilator Ventilator Ventilator Mechanical Ventilator 11/28/16 11/28/16 11/28/16 11/28/16 00:00 01:00 01:20 02:00 Pulse 61 61 61 Resp 20 20 20 B/P (MAP) 116/58 (77) 99/49 (66) 114/58 (76) Pulse Ox 100 100 100 100 O2 Delivery Ventilator Ventilator Ventilator Ventilator 11/28/16 11/28/16 11/28/16 11/28/16 03:00 03:28 04:00 04:35 Temp 98.9 98.9 Pulse 60 62 Resp 20 22 B/P (MAP) 93/49 (64) 138/80 (99) Pulse Ox 100 100 99 O2 Delivery Ventilator Ventilator Mechanical Ventilator Ventilator 11/28/16 11/28/16 11/28/16 11/28/16 05:00 05:15 06:00 07:00 Pulse 59 60 60 Resp 22 20 23 B/P (MAP) 128/55 (79) 97/49 (65) 150/74 (99) Pulse Ox 99 100 100 100 O2 Delivery Ventilator Ventilator Ventilator Ventilator 11/28/16 11/28/16 11/28/16 11/28/16 08:00 08:00 08:46 09:00 Temp 99.7 99.7 Pulse 59 60 Resp 23 19 B/P (MAP) 134/59 (84) 143/58 (86) Pulse Ox 100 100 100 O2 Delivery Ventilator Mechanical Ventilator Ventilator Ventilator 11/28/16 11/28/16 11/28/16 09:25 10:00 11:00 Pulse 60 60 Resp 20 22 B/P (MAP) 135/65 (88) 133/66 (88) Pulse Ox 100 100 100 O2 Delivery Ventilator Ventilator Ventilator Intake and Output 711/27/16 11/28/16 14:59 22:59 06:59 Intake Total 290 ml 2739.0 ml Output Total 950 ml 1475 ml 1350 ml Balance -660 ml 1264.0 ml -1350 ml GUY SORENSON MD Nov 28, 2016 12:14
[2016-11-28] MEDS: ATORVASTATIN CALCIUM 10 MG TABLET. PO SCH (21:00)
[2016-11-28] MEDS ORDERED: [UNRECOGNIZED DRUG - OTHER] IV SCH ×10 (22:00)
[2016-11-28] MEDS ORDERED: DEXTROSE 70% IV SCH ×10 (22:00)
[2016-11-28] MEDS ORDERED: TOTAL PARENTERAL NUTRITION IV SCH ×10 (22:00)
[2016-11-28] MEDS ORDERED: AMINO ACIDS IV SCH ×10 (22:00)
[2016-11-29] VITALS (24 sets, daily range): BP systolic 96–147; BP diastolic 50–82
[2016-11-29] MEDS: MEROPENEM 500 MG in IV NORMAL SALINE 50ML 50 ML IV SCH ×3 (05:49→21:03)
[2016-11-29 06:38] LABS: BASO % 0 % (0-3); EOS % 2 % (0-3); HEMOGLOBIN 9.9 g/dL (13.0-17.5); LYMPH # 0.7 x10^3/uL (1.0-4.8); LYMPH % 6 % (24-48); MEAN CORPUSCULAR HEMOGLOBIN 33 pg (25-35); MEAN CORPUSCULAR HGB CONC 34 g/dL (31-37); MEAN CORPUSCULAR VOLUME 97 fL (79-100); MONO % 11 % (0-9); NEUT % 81 % (31-73); PLATELET COUNT 195 x10^3/uL (140-400); WHITE BLOOD COUNT 11.7 x10^3/uL (4.0-11.0)
[2016-11-29 06:56] LABS: ALBUMIN 1.4 g/dL (3.4-5.0); ALBUMIN/GLOBULIN RATIO 0.4 (1.0-1.7); CALCIUM 9.2 mg/dL (8.5-10.1); CREATININE 0.7 mg/dL (0.7-1.3); GFR 107.2; MAGNESIUM 2.2 mg/dL (1.8-2.4); POTASSIUM 4.1 mmol/L (3.5-5.1); TOTAL BILIRUBIN 1.1 mg/dL (0.2-1.0); TOTAL PROTEIN 5.2 g/dL (6.4-8.2)
[2016-11-29] MEDS: DUTASTERIDE 0.5 MG CAPSULE PO SCH (07:36)
[2016-11-29] MEDS: PROPOFOL 100 ML IV PRN (07:41)
[2016-11-29] MEDS: CHLORHEXIDINE 0.12% 15 ML MOUTHWASH. MM SCH ×2 (07:41→23:23)
[2016-11-29] MEDS: FAMOTIDINE 20 MG/2 ML VIAL IVP SCH ×2 (07:41→21:02)
--- NOTE | 2016-11-29 08:09 | PDOC ---
PROGRESS NOTES Subjective Subjective pt intubated, on vent Objective Objective Vital Signs Date Time Temp Pulse Resp B/P (MAP) Pulse Ox O2 Delivery O2 Flow Rate FiO2 11/29/16 06:00 60 22 115/54 (74) 99 Ventilator 11/28/16 19:00 99.7 99.7 11/24/16 08:00 2.0 Intake and Output 11/29/16 06:59 Intake Total 4405.0 ml Output Total 3780 ml Balance 625.0 ml Intake Oral 0 ml IV Total 4405.0 ml Output Urine Total 3280 ml Drainage Total 500 ml Physical Exam Physical Exam abdomen soft, incision good Assessment Assessment Problems Medical Problems: (1) Upper GI bleeding Status: Acute Plan Plan of Care supportive tx, pulmonary input noted; would be ok to use Gtube for enteral feeding if desired Comment Review of Relevant I have reviewed the following items cordell (where applicable) has been applied. Labs Laboratory Tests Test 11/27/16 11:11 11/27/16 17:11 11/28/16 06:31 11/28/16 06:35 Glucose (Fingerstick) 126 mg/dL (70-99) 86 mg/dL (70-99) 129 mg/dL (70-99) White Blood Count 11.4 x10^3/uL (4.0-11.0) Red Blood Count 3.02 x10^6/uL (4.30-5.70) Hemoglobin 10.0 g/dL (13.0-17.5) Hematocrit 29.5 % (39.0-53.0) Mean Corpuscular Volume 98 fL (79-100) Mean Corpuscular Hemoglobin 33 pg (25-35) Mean Corpuscular Hemoglobin Concent 34 g/dL (31-37) Red Cell Distribution Width 14.7 % (11.5-14.5) Platelet Count 162 x10^3/uL (140-400) Neutrophils (%) (Auto) 81 % (31-73) Lymphocytes (%) (Auto) 7 % (24-48) Monocytes (%) (Auto) 11 % (0-9) Eosinophils (%) (Auto) 2 % (0-3) Basophils (%) (Auto) 0 % (0-3) Neutrophils # (Auto) 9.2 x10^3uL (1.8-7.7) Lymphocytes # (Auto) 0.7 x10^3/uL (1.0-4.8) Monocytes # (Auto) 1.2 x10^3/uL (0.0-1.1) Eosinophils # (Auto) 0.2 x10^3/uL (0.0-0.7) Basophils # (Auto) 0.0 x10^3/uL (0.0-0.2) Sodium Level 139 mmol/L (136-145) Potassium Level 4.2 mmol/L (3.5-5.1) Chloride Level 106 mmol/L (98-107) Carbon Dioxide Level 27 mmol/L (21-32) Anion Gap 6 (6-14) Blood Urea Nitrogen 17 mg/dL (8-26) Creatinine 0.7 mg/dL (0.7-1.3) Estimated GFR (Cockcroft-Gault) 107.2 Glucose Level 121 mg/dL (70-99) Calcium Level 9.0 mg/dL (8.5-10.1) Phosphorus Level 3.6 mg/dL (2.6-4.7) Magnesium Level 2.3 mg/dL (1.8-2.4) Test 11/28/16 08:00 11/28/16 08:59 11/29/16 06:00 O2 Saturation 96 % (92-99) Arterial Blood pH 7.49 (7.35-7.45) Arterial Blood pCO2 at Patient Temp 31 mmHg (35-46) Arterial Blood pO2 at Patient Temp 81 mmHg (65-108) Arterial Blood HCO3 23 mmol/L (21-28) Arterial Blood Base Excess 0 mmol/L (-3-3) FiO2 35 Glucose (Fingerstick) 123 mg/dL (70-99) White Blood Count 11.7 x10^3/uL (4.0-11.0) Red Blood Count 3.00 x10^6/uL (4.30-5.70) Hemoglobin 9.9 g/dL (13.0-17.5) Hematocrit 29.0 % (39.0-53.0) Mean Corpuscular Volume 97 fL (79-100) Mean Corpuscular Hemoglobin 33 pg (25-35) Mean Corpuscular Hemoglobin Concent 34 g/dL (31-37) Red Cell Distribution Width 14.0 % (11.5-14.5) Platelet Count 195 x10^3/uL (140-400) Neutrophils (%) (Auto) 81 % (31-73) Lymphocytes (%) (Auto) 6 % (24-48) Monocytes (%) (Auto) 11 % (0-9) Eosinophils (%) (Auto) 2 % (0-3) Basophils (%) (Auto) 0 % (0-3) Neutrophils # (Auto) 9.5 x10^3uL (1.8-7.7) Lymphocytes # (Auto) 0.7 x10^3/uL (1.0-4.8) Monocytes # (Auto) 1.3 x10^3/uL (0.0-1.1) Eosinophils # (Auto) 0.2 x10^3/uL (0.0-0.7) Basophils # (Auto) 0.0 x10^3/uL (0.0-0.2) Sodium Level 139 mmol/L (136-145) Potassium Level 4.1 mmol/L (3.5-5.1) Chloride Level 106 mmol/L (98-107) Carbon Dioxide Level 28 mmol/L (21-32) Anion Gap 5 (6-14) Blood Urea Nitrogen 19 mg/dL (8-26) Creatinine 0.7 mg/dL (0.7-1.3) Estimated GFR (Cockcroft-Gault) 107.2 BUN/Creatinine Ratio 27 (6-20) Glucose Level 120 mg/dL (70-99) Calcium Level 9.2 mg/dL (8.5-10.1) Phosphorus Level 3.0 mg/dL (2.6-4.7) Magnesium Level 2.2 mg/dL (1.8-2.4) Total Bilirubin 1.1 mg/dL (0.2-1.0) Aspartate Amino Transf (AST/SGOT) 58 U/L (15-37) Alanine Aminotransferase (ALT/SGPT) 67 U/L (16-63) Alkaline Phosphatase 147 U/L (46-116) Total Protein 5.2 g/dL (6.4-8.2) Albumin 1.4 g/dL (3.4-5.0) Albumin/Globulin Ratio 0.4 (1.0-1.7) Laboratory Tests Test 11/28/16 08:59 11/29/16 06:00 Glucose (Fingerstick) 123 mg/dL (70-99) White Blood Count 11.7 x10^3/uL (4.0-11.0) Red Blood Count 3.00 x10^6/uL (4.30-5.70) Hemoglobin 9.9 g/dL (13.0-17.5) Hematocrit 29.0 % (39.0-53.0) Mean Corpuscular Volume 97 fL (79-100) Mean Corpuscular Hemoglobin 33 pg (25-35) Mean Corpuscular Hemoglobin Concent 34 g/dL (31-37) Red Cell Distribution Width 14.0 % (11.5-14.5) Platelet Count 195 x10^3/uL (140-400) Neutrophils (%) (Auto) 81 % (31-73) Lymphocytes (%) (Auto) 6 % (24-48) Monocytes (%) (Auto) 11 % (0-9) Eosinophils (%) (Auto) 2 % (0-3) Basophils (%) (Auto) 0 % (0-3) Neutrophils # (Auto) 9.5 x10^3uL (1.8-7.7) Lymphocytes # (Auto) 0.7 x10^3/uL (1.0-4.8) Monocytes # (Auto) 1.3 x10^3/uL (0.0-1.1) Eosinophils # (Auto) 0.2 x10^3/uL (0.0-0.7) Basophils # (Auto) 0.0 x10^3/uL (0.0-0.2) Sodium Level 139 mmol/L (136-145) Potassium Level 4.1 mmol/L (3.5-5.1) Chloride Level 106 mmol/L (98-107) Carbon Dioxide Level 28 mmol/L (21-32) Anion Gap 5 (6-14) Blood Urea Nitrogen 19 mg/dL (8-26) Creatinine 0.7 mg/dL (0.7-1.3) Estimated GFR (Cockcroft-Gault) 107.2 BUN/Creatinine Ratio 27 (6-20) Glucose Level 120 mg/dL (70-99) Calcium Level 9.2 mg/dL (8.5-10.1) Phosphorus Level 3.0 mg/dL (2.6-4.7) Magnesium Level 2.2 mg/dL (1.8-2.4) Total Bilirubin 1.1 mg/dL (0.2-1.0) Aspartate Amino Transf (AST/SGOT) 58 U/L (15-37) Alanine Aminotransferase (ALT/SGPT) 67 U/L (16-63) Alkaline Phosphatase 147 U/L (46-116) Total Protein 5.2 g/dL (6.4-8.2) Albumin 1.4 g/dL (3.4-5.0) Albumin/Globulin Ratio 0.4 (1.0-1.7) Microbiology 11/25/16 Blood Culture - Preliminary, Resulted NO GROWTH AFTER 3 DAYS 11/24/16 Gram Stain - Final, Complete 11/19/16 Urine Culture - Final, Complete 11/19/16 Urine Culture Result 1 ([facility]) - Final, Complete Medications Current Medications Sodium Chloride 1,000 ml @ 1,000 mls/hr 1X ONCE IV Last administered on 20:55; Start 11/19/16 at 20:45; Stop 11/19/16 at 21:44; Status DC Famotidine (Pepcid) 40 mg 1X ONCE IVP Last administered on 11/19/16 21:54; Start 11/19/16 at 21:30; Stop 11/19/16 at 21:31; Status DC Ondansetron HCl (Zofran) 4 mg PRN Q8HRS PRN IV NAUSEA/VOMITING Last administered on 11/19/16 21:54; Start 11/19/16 at 21:45; Stop 11/20/16 at 10:44 ; Status DC Morphine Sulfate 2 mg PRN Q2HR PRN IV PAIN; Start 11/19/16 at 21:45; Stop 11/20 at 21:44; Status DC Sodium Chloride 1,000 ml @ 110 mls/hr Q9H6M IV Last administered on 11/20/16 17:53; Start 11/19/16 at 21:41; Stop 11/20/16 at 21:40; Status DC Ondansetron HCl (Zofran) 4 mg PRN Q6HRS PRN IV NAUSEA/VOMITING; Start 11/20/16 at 10:42; Stop 11/21/16 at 10:41; Status DC Famotidine (Pepcid) 20 mg BID IVP Last administered on 11/29/16 07:41; Start 11/20/16 at 11:00 Atorvastatin Calcium (Lipitor) 10 mg QHS PO Last administered on 11/25/16t 22: 06; Start 11/20/16 at 21:00 Dutasteride (Avodart) 0.5 mg DAILY PO ; Start 11/20/16 at 11:00 Labetalol HCl (Normodyne) 10 mg PRN Q2HR PRN IVP HYPERTENSION, SEE COMMENTS; Start 11/20/16 at 10:45 Acetaminophen (Tylenol) 500 mg PRN Q6HRS PRN PO MILD PAIN / TEMP; Start at 10:45 Ondansetron HCl (Zofran) 4 mg PRN Q6HRS PRN IV NAUSEA/VOMITING; Start 11/21/16 at 07:00; Stop 11/22/16 at 06:59; Status DC Fentanyl Citrate (Fentanyl 2ml Vial) 25 mcg PRN Q5MIN PRN IV MILD PAIN; Start 11/21/16 at 07:00; Stop 11/22/16 at 06:59; Status DC Fentanyl Citrate (Fentanyl 2ml Vial) 50 mcg PRN Q5MIN PRN IV MODERATE PAIN; Start 11/21/16 at 07:00; Stop 11/22/16 at 06:59; Status DC Morphine Sulfate 1 mg PRN Q10MIN PRN IV SEVERE PAIN; Start 11/21/16 at 07:00; Stop 11/22/16 at 06:59; Status DC Ringer's Solution 1,000 ml @ 30 mls/hr Q24H IV ; Start 11/21/16 at 07:00; Stop 11/21/16 at 18:59; Status DC Lidocaine HCl 2 ml PRN 1X PRN ID PRIOR TO IV START; Start 11/21/16 at 07:00; Stop 11/22/16 at 06:59; Status DC Hydromorphone HCl (Dilaudid) 0.5 mg PRN Q10MIN PRN IV SEV PAIN, Second choice; Start 11/21/16 at 07:00; Stop 11/22/16 at 06:59; Status DC Prochlorperazine Edisylate (Compazine) 5 mg PACU PRN PRN IV NAUSEA, MRX1; Start 11/21/16 at 07:00; Stop 11/22/16 at 06:59; Status DC Hydralazine HCl (Apresoline) 10 mg PRN Q4HRS PRN IVP ELEVATED BP, SEE COMMENTS ; Start 11/20/16 at 15:30 Propofol 20 ml @ As Directed STK-MED ONCE IV ; Start 11/21/16 at 07:20; Stop at 07:21; Status DC Lidocaine HCl (Lidocaine Pf 2% Vial) 5 ml STK-MED ONCE .ROUTE ; Start 11/21/16 at 07:20; Stop 11/21/16 at 07:21; Status DC Ondansetron HCl (Zofran) 4 mg STK-MED ONCE .ROUTE ; Start 11/21/16 at 07:20; Stop 11/21/16 at 07:21; Status DC Dexamethasone Sodium Phosphate (Decadron) 20 mg STK-MED ONCE .ROUTE ; Start at 07:20; Stop 11/21/16 at 07:21; Status DC Phenylephrine HCl 1 mg STK-MED ONCE IV ; Start 11/21/16 at 07:21; Stop 11/21/16 at 07:22; Status DC Ephedrine Sulfate 50 mg STK-MED ONCE IV ; Start 11/21/16 at 07:21; Stop at 07:22; Status DC Fentanyl Citrate (Fentanyl 5ml Vial) 250 mcg STK-MED ONCE .ROUTE ; Start at 07:21; Stop 11/21/16 at 07:22; Status DC Rocuronium [place] (Zemuron) 50 mg STK-MED ONCE .ROUTE ; Start 11/21/16 at 07:22 ; Stop 11/21/16 at 07:23; Status DC Famotidine (Pepcid) 20 mg STK-MED ONCE .ROUTE ; Start 11/21/16 at 07:23; Stop at 07:24; Status DC Cellulose 1 each STK-MED ONCE .ROUTE Last administered on 11/21/16t 10:29; Start 11/21/16 at 07:33; Stop 11/21/16 at 07:34; Status DC Bupivacaine HCl/ Epinephrine Bitart (Marcaine-Epi 0.5%-[id number]) 50 ml STK-MED ONCE .ROUTE Last administered on 11/21/16 08:43; Start 11/21/16 at 07:34; Stop 11/21/16 at 07:35; Status DC Cefazolin Sodium/ Dextrose 50 ml @ 100 mls/hr 1X PREOP ONCE IV Last administered on 11/21/16 08:25; Start 11/21/16 at 07:37; Stop 11/21/16 at 08:06 ; Status DC Succinylcholine Chloride (Anectine) 200 mg STK-MED ONCE .ROUTE ; Start 11/21/16 at 07:59; Stop 11/21/16 at 08:00; Status DC Sevoflurane (Ultane) 90 ml STK-MED ONCE IH ; Start 11/21/16 at 09:24; Stop 11/21 at 09:25; Status DC Rocuronium [place] (Zemuron) 50 mg STK-MED ONCE .ROUTE ; Start 11/21/16 at 09:25 ; Stop 11/21/16 at 09:26; Status DC Cellulose 1 each STK-MED ONCE .ROUTE ; Start 11/21/16 at 10:11; Stop 11/21/16 at 10:12; Status DC Sodium Bicarbonate 50 meq STK-MED ONCE .ROUTE ; Start 11/21/16 at 10:34; Stop at 10:35; Status DC Rocuronium [place] (Zemuron) 50 mg STK-MED ONCE .ROUTE ; Start 11/21/16 at 11:00 ; Stop 11/21/16 at 11:01; Status DC Sevoflurane (Ultane) 90 ml STK-MED ONCE IH ; Start 11/21/16 at 12:46; Stop 11/21 at 12:47; Status DC Piperacillin Sod/ Tazobactam Sod 3.375 gm/Sodium Chloride 50 ml @ 100 mls/hr Q6HRS IV Last administered on 11/26/16 11:40; Start 11/21/16 at 14:00; Stop at 14:43; Status DC Fentanyl Citrate (Fentanyl 2ml Vial) 25 mcg PRN Q2HR PRN IV PAIN Last administered on 11/24/16 02:49; Start 11/21/16 at 13:30; Stop 11/25/16 at 12:11 ; Status DC Fentanyl Citrate (Fentanyl 2ml Vial) 50 mcg PRN Q2HR PRN IV PAIN Last administered on 11/23/16 09:50; Start 11/21/16 at 13:30; Stop 11/25/16 at 12:11 ; Status DC Propofol 100 ml @ 0 mls/hr CONT PRN IV PER PROTOCOL Last administered on 07:41; Start 11/21/16 at 13:30 Fentanyl Citrate (Fentanyl 2ml Vial) 25 mcg PRN Q1HR PRN IV COMM Last administered on 11/27/16 06:03; Start 11/21/16 at 13:30 Fentanyl Citrate (Fentanyl 2ml Vial) 50 mcg PRN Q1HR PRN IV COMM Last administered on 11/26/16 23:08; Start 11/21/16 at 13:30 Chlorhexidine Gluconate (Peridex) 15 ml BID MM Last administered on 11/29/16 07:41; Start 11/21/16 at 21:00 Potassium Chloride/Dextrose/ Sod Cl 1,000 ml @ 100 mls/hr Q10H IV Last administered on 11/25/16 08:55; Start 11/21/16 at 15:00; Stop 11/25/16 at 21:59 ; Status DC Albuterol/ Ipratropium (Duoneb) 3 ml RTQID NEB Last administered on 11/28/16 20:18; Start 11/23/16 at 16:00 Amino Acids/ Glycerin/ Electrolytes 1,000 ml @ 80 mls/hr [id number] IV ; Start at 16:15; Stop 11/23/16 at 18:21; Status DC Amino Acids/ Glycerin/ Electrolytes 1,000 ml @ 80 mls/hr [id number] IV Last administered on 11/24/16 08:00; Start 11/23/16 at 21:00; Stop 11/24/16 at 13:45 ; Status DC Amino Acids/ Glycerin/ Electrolytes 1,000 ml @ 80 mls/hr [id number] IV Last administered on 11/25/16 08:22; Start 11/25/16 at 08:00; Stop 11/25/16 at 21:59 ; Status DC Linezolid 300 ml @ 300 mls/hr Q12HR IV Last administered on 11/28/16 09:12; Start 11/25/16 at 10:00; Stop 11/28/16 at 12:42; Status DC Info 1 each PRN DAILY PRN MC SEE COMMENTS Last administered on 11/28/16 10:15 ; Start 11/25/16 at 11:15 Sodium Acetate 90 meq/Potassium Chloride 50 meq/ Potassium Phosphate 13.6 mmol/ Magnesium Sulfate 10 meq/ Calcium Gluconate 10 meq/ Multivitamins 10 ml/Chromium / Copper/Manganese/ Seleni/Zn 1 ml/ Total Parenteral Nutrition/Amino Acids/ Dextrose 1,512 ml @ 63 mls/hr TPN CONT IV Last administered on 11/25/16 22: 04; Start 11/25/16 at 22:00; Stop 11/26/16 at 21:59; Status DC Sodium Chloride 45 meq/Sodium Acetate 45 meq/ Potassium Chloride 50 meq/ Potassium Phosphate 17 mmol/ Magnesium Sulfate 16 meq/Calcium Gluconate 14 meq/ Multivitamins 10 ml/Chromium/ Copper/Manganese/ Seleni/Zn 1 ml/ Total Parenteral Nutrition/Amino Acids/Dextrose 1,512 ml @ 63 mls/hr TPN CONT IV Last administered on 11/26/16 21:01; Start 11/26/16 at 22:00; Stop 11/27/16 at 21:59; Status DC Potassium Phosphate 10 mmol/ Sodium Chloride 103.3333 ml @ 51.667 m... Q2H IV Last administered on 11/26/16 14:54; Start 11/26/16 at 13:30; Stop 11/26/16 at 17:29; Status DC Meropenem 500 mg/ Sodium Chloride 50 ml @ 100 mls/hr Q8HRS IV Last administered on 11/29/16 05:49; Start 11/26/16 at 15:00 Potassium Chloride/Dextrose/ Sod Cl 1,000 ml @ 37 mls/hr Q24H IV Last administered on 11/28/16 06:13; Start 11/26/16 at 20:00 Sodium Chloride 45 meq/Sodium Acetate 45 meq/ Potassium Chloride 50 meq/ Potassium Phosphate 17 mmol/ Magnesium Sulfate 12 meq/Calcium Gluconate 12 meq/ Multivitamins 10 ml/Chromium/ Copper/Manganese/ Seleni/Zn 1 ml/ Total Parenteral Nutrition/Amino Acids/Dextrose/ Fat Emulsion Intravenous 1,512 ml @ 63 mls/hr TPN CONT IV Last administered on 11/27/16 22:11; Start 11/27/16 at 22:00; Stop 11/28/16 at 21:59; Status DC Sodium Chloride 45 meq/Sodium Acetate 45 meq/ Potassium Chloride 50 meq/ Potassium Phosphate 17 mmol/ Magnesium Sulfate 12 meq/Calcium Gluconate 10 meq/ Multivitamins 10 ml/Chromium/ Copper/Manganese/ Seleni/Zn 1 ml/ Total Parenteral Nutrition/Amino Acids/Dextrose 1,512 ml @ 63 mls/hr TPN CONT IV Last administered on 11/28/16 21:35; Start 11/28/16 at 22:00; Stop 11/29/16 at 21:59 Active Scripts Active Reported Aspir 81 (Aspirin) 81 Mg Tablet.dr 81 Mg PO DAILY Atorvastatin Calcium 10 Mg Tablet 1 Tab PO DAILY Aspirin 81 Mg Tab.chew 1 Tab PO DAILY Avodart (Dutasteride) 0.5 Mg Capsule 1 Cap PO DAILY Vitals/I & O Vital Sign - Last 24 Hours 11/28/16 11/28/16 11/28/16 11/28/16 08:46 09:00 09:25 10:00 Pulse 60 60 Resp 19 20 B/P (MAP) 143/58 (86) 135/65 (88) Pulse Ox 100 100 100 100 O2 Delivery Ventilator Ventilator Ventilator Ventilator 11/28/16 11/28/16 11/28/16 11/28/16 11:00 12:00 12:00 12:15 Temp 99.9 99.9 Pulse 60 60 Resp 22 23 B/P (MAP) 133/66 (88) 117/58 (77) Pulse Ox 100 100 100 O2 Delivery Ventilator Mechanical Ventilator Ventilator Ventilator 11/28/16 11/28/16 11/28/16 11/28/16 13:00 14:00 15:00 16:00 Temp 97.6 97.6 Pulse 60 60 60 60 Resp 19 21 19 20 B/P (MAP) 128/60 (82) 94/51 (65) 109/60 (76) 113/56 (75) Pulse Ox 100 100 100 100 O2 Delivery Ventilator Ventilator Ventilator Ventilator 11/28/16 11/28/16 11/28/16 11/28/16 16:00 16:36 17:00 18:00 Pulse 60 60 Resp 60 19 B/P (MAP) 135/69 (91) 151/59 (89) Pulse Ox 100 100 100 O2 Delivery Mechanical Ventilator Ventilator Ventilator Ventilator 11/28/16 11/28/16 11/28/16 11/28/16 19:00 20:00 20:02 20:20 Temp 99.7 99.7 Pulse 60 60 Resp 20 20 B/P (MAP) 135/72 (93) 148/69 (95) Pulse Ox 94 94 100 O2 Delivery Ventilator Mechanical Ventilator Ventilator Ventilator 11/28/16 11/28/16 11/28/16 11/28/16 21:00 22:00 23:00 23:23 Pulse 60 60 60 Resp 20 20 20 B/P (MAP) 134/52 (79) 136/57 (83) 124/52 (76) Pulse Ox 100 100 100 100 O2 Delivery Ventilator Ventilator Ventilator Ventilator 11/29/16 11/29/16 11/29/16 11/29/16 00:00 00:04 01:00 01:31 Pulse 60 60 Resp 20 20 B/P (MAP) 124/50 (74) 113/50 (71) Pulse Ox 100 100 100 O2 Delivery Ventilator Mechanical Ventilator Ventilator Ventilator 11/29/16 11/29/16 11/29/16 11/29/16 02:00 03:00 04:00 04:00 Pulse 60 60 60 Resp 20 20 20 B/P (MAP) 119/59 (79) 99/58 (72) 119/59 (79) Pulse Ox 100 100 100 O2 Delivery Ventilator Ventilator Mechanical Ventilator Ventilator 11/29/16 11/29/16 11/29/16 04:25 05:08 06:00 Pulse 60 60 Resp 22 22 B/P (MAP) 96/52 (67) 115/54 (74) Pulse Ox 100 99 99 O2 Delivery Ventilator Ventilator Ventilator Intake and Output 11/28/16 11/28/16 11/29/16 14:59 22:59 06:59 Intake Total 2948.0 ml 1457 ml Output Total 1085 ml 1475 ml 1220 ml Balance -1085 ml 1473.0 ml 237 ml SYDNEE MCCRACKEN MD Nov 29, 2016 08:09
[2016-11-29] MEDS: IPRATRPIUM/ALBUTEROL 0.5/2.5MG 3 ML NEBU. NEB SCH ×4 (08:43→20:02)
[2016-11-29 08:54] LABS: HCO3 ABG 24 mmol/L (21-28); PCO2 ABG 34 mmHg (35-46); PH ABG 7.47 (7.35-7.45); PO2 ABG 84 mmHg (65-108); SAT O2 ABG 96 % (92-99)
[2016-11-29 08:57] LABS: FIO2 ABG 35
--- NOTE | 2016-11-29 09:52 | PDOC ---
Objective: Objective: Reviewed other notes. Vital Signs: Vital Signs Date Time Temp Pulse Resp B/P (MAP) Pulse Ox O2 Delivery O2 Flow Rate FiO2 11/29/16 08:43 100 Ventilator 11/29/16 06:00 60 22 115/54 (74) 11/28/16 19:00 99.7 99.7 Labs: Laboratory Tests Test 11/29/16 06:00 11/29/16 08:00 White Blood Count 11.7 x10^3/uL Red Blood Count 3.00 x10^6/uL Hemoglobin 9.9 g/dL Hematocrit 29.0 % Mean Corpuscular Volume 97 fL Mean Corpuscular Hemoglobin 33 pg Mean Corpuscular Hemoglobin Concent 34 g/dL Red Cell Distribution Width 14.0 % Platelet Count 195 x10^3/uL Neutrophils (%) (Auto) 81 % Lymphocytes (%) (Auto) 6 % Monocytes (%) (Auto) 11 % Eosinophils (%) (Auto) 2 % Basophils (%) (Auto) 0 % Neutrophils # (Auto) 9.5 x10^3uL Lymphocytes # (Auto) 0.7 x10^3/uL Monocytes # (Auto) 1.3 x10^3/uL Eosinophils # (Auto) 0.2 x10^3/uL Basophils # (Auto) 0.0 x10^3/uL Sodium Level 139 mmol/L Potassium Level 4.1 mmol/L Chloride Level 106 mmol/L Carbon Dioxide Level 28 mmol/L Anion Gap 5 Blood Urea Nitrogen 19 mg/dL Creatinine 0.7 mg/dL Estimated GFR (Cockcroft-Gault) 107.2 BUN/Creatinine Ratio 27 Glucose Level 120 mg/dL Calcium Level 9.2 mg/dL Phosphorus Level 3.0 mg/dL Magnesium Level 2.2 mg/dL Total Bilirubin 1.1 mg/dL Aspartate Amino Transf (AST/SGOT) 58 U/L Alanine Aminotransferase (ALT/SGPT) 67 U/L Alkaline Phosphatase 147 U/L Total Protein 5.2 g/dL Albumin 1.4 g/dL Albumin/Globulin Ratio 0.4 O2 Saturation 96 % Arterial Blood pH 7.47 Arterial Blood pCO2 at Patient Temp 34 mmHg Arterial Blood pO2 at Patient Temp 84 mmHg Arterial Blood HCO3 24 mmol/L Arterial Blood Base Excess 1 mmol/L FiO2 35 PE: GEN: intubated LUNGS: vent HEART: S1S2 ABD: soft NEURO/PSYCH: sedated A/P: S/p gastropexy/sleeve resection Resp failure -- Other per Dr. Mendoza. ANGELA SCHNEIDER Nov 29, 2016 09:52
--- NOTE | 2016-11-29 09:56 | PDOC ---
Infectious Disease Note Subjective Subjective Remains intubated. FiO2 35% TPN No fever last 24 hours Vital Sign Vital Signs Vital Signs Date Time Temp Pulse Resp B/P (MAP) Pulse Ox O2 Delivery O2 Flow Rate FiO2 11/29/16 08:43 100 Ventilator 11/29/16 06:00 60 22 115/54 (74) 11/28/16 19:00 99.7 99.7 Physical Exam PHYSICAL EXAM GENERAL: Intubated and sedated HEENT: ETT LUNGS: Diminished aeration. HEART: Normal S1 and S2. Pacemaker. ABDOMEN: Mildly distended. Hypoactive BS, soft. No grimace or guarding to palpation. Gastrostomy tube to dependent drainage. Midline incision. GENITOURINARY: Riddle. EXTREMITIES: Trace edema, no cyanosis. SKIN: Without rash. LUE - PICC. Clean (11/24). Labs Lab Laboratory Tests Test 11/29/16 06:00 11/29/16 08:00 White Blood Count 11.7 x10^3/uL (4.0-11.0) Red Blood Count 3.00 x10^6/uL (4.30-5.70) Hemoglobin 9.9 g/dL (13.0-17.5) Hematocrit 29.0 % (39.0-53.0) Mean Corpuscular Volume 97 fL (79-100) Mean Corpuscular Hemoglobin 33 pg (25-35) Mean Corpuscular Hemoglobin Concent 34 g/dL (31-37) Red Cell Distribution Width 14.0 % (11.5-14.5) Platelet Count 195 x10^3/uL (140-400) Neutrophils (%) (Auto) 81 % (31-73) Lymphocytes (%) (Auto) 6 % (24-48) Monocytes (%) (Auto) 11 % (0-9) Eosinophils (%) (Auto) 2 % (0-3) Basophils (%) (Auto) 0 % (0-3) Neutrophils # (Auto) 9.5 x10^3uL (1.8-7.7) Lymphocytes # (Auto) 0.7 x10^3/uL (1.0-4.8) Monocytes # (Auto) 1.3 x10^3/uL (0.0-1.1) Eosinophils # (Auto) 0.2 x10^3/uL (0.0-0.7) Basophils # (Auto) 0.0 x10^3/uL (0.0-0.2) Sodium Level 139 mmol/L (136-145) Potassium Level 4.1 mmol/L (3.5-5.1) Chloride Level 106 mmol/L (98-107) Carbon Dioxide Level 28 mmol/L (21-32) Anion Gap 5 (6-14) Blood Urea Nitrogen 19 mg/dL (8-26) Creatinine 0.7 mg/dL (0.7-1.3) Estimated GFR (Cockcroft-Gault) 107.2 BUN/Creatinine Ratio 27 (6-20) Glucose Level 120 mg/dL (70-99) Calcium Level 9.2 mg/dL (8.5-10.1) Phosphorus Level 3.0 mg/dL (2.6-4.7) Magnesium Level 2.2 mg/dL (1.8-2.4) Total Bilirubin 1.1 mg/dL (0.2-1.0) Aspartate Amino Transf (AST/SGOT) 58 U/L (15-37) Alanine Aminotransferase (ALT/SGPT) 67 U/L (16-63) Alkaline Phosphatase 147 U/L (46-116) Total Protein 5.2 g/dL (6.4-8.2) Albumin 1.4 g/dL (3.4-5.0) Albumin/Globulin Ratio 0.4 (1.0-1.7) O2 Saturation 96 % (92-99) Arterial Blood pH 7.47 (7.35-7.45) Arterial Blood pCO2 at Patient Temp 34 mmHg (35-46) Arterial Blood pO2 at Patient Temp 84 mmHg (65-108) Arterial Blood HCO3 24 mmol/L (21-28) Arterial Blood Base Excess 1 mmol/L (-3-3) FiO2 35 Objective Assessment Fever ? reactive blood transfusion, better Leukocytosis, better Aspiration pneumonia. s/p bronch 11/22. GS: GPC & yeast. Final cx yeast only. 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 Acute respiratory failure Anemia s/p PRBCs 11/27 Pacemaker Dementia Plan Plan of Care Meropenem Monitor labs Supportive care Attending Co-Sign The patient was seen and interviewed as well as examined at the bedside. The chart was reviewed. The case was discussed. Agree with the plan of care. HAWA BEYER APRN Nov 29, 2016 09:56 JANES BEJARANO MD Nov 29, 2016 15:36
--- NOTE | 2016-11-29 10:01 | PDOC ---
PROGRESS NOTES Chief Complaint Chief Complaint hematemesis ASSESSMENT AND PLAN: 1. UGIB: s/p Laparoscopic repair of large paraesophageal hernia, open partial gastrectomy, placement of gastrostomy with gastropexy, nutrition as per general surgery. Place PICC line, start TPN, monitor CBC and a CMP 2. Acute respiratory failure: On mechanical ventilation, off sedation, possible aspiration. sputum cx + GNR. on zyvox and meropenum with ID 3. Leukocytosis 4. Arrhythmia: hx pacer placement 5. Prophylaxis: SCDs; medical anticoag contraindicated, mild thrombocytopenia 6. 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 Monitor .2 Uprbc 11/27 HYPOPHOsphatemia: replete Sarkis overall prognosis guarded as per pulm, no trach from family, may try to wean today or tmr, but likely difficult given bl infiltrates in CXR, if not improving may consider PAT. History of Present Illness History of Present Illness Seen in ICU, intubated NOn purposeful movements NOisy BS Pulmo note reviewed, keep intubated or terminal extubation (no LTAC plans) NO trach plans as dw by pulmo (pt had very poor lifestyle/QOL prior to this ) Hgb otherwise stable, no further rebleeds PLAN: Supportive care LAbs in AM Vitals Vitals Vital Signs Date Time Temp Pulse Resp B/P (MAP) Pulse Ox O2 Delivery O2 Flow Rate FiO2 11/29/16 09:47 99 Ventilator 11/29/16 06:00 60 22 115/54 (74) 11/28/16 19:00 99.7 99.7 Physical Exam Physical Exam intubated ,sedated General: No acute distress Heart: Regular rate, Normal S1, Normal S2 Lungs: Crackles Abdomen: Soft, Other (g tube draining ) Extremities: No clubbing, No cyanosis Skin: No rashes, No breakdown Labs LABS Laboratory Tests Test 11/29/16 06:00 11/29/16 08:00 White Blood Count 11.7 x10^3/uL (4.0-11.0) Red Blood Count 3.00 x10^6/uL (4.30-5.70) Hemoglobin 9.9 g/dL (13.0-17.5) Hematocrit 29.0 % (39.0-53.0) Mean Corpuscular Volume 97 fL (79-100) Mean Corpuscular Hemoglobin 33 pg (25-35) Mean Corpuscular Hemoglobin Concent 34 g/dL (31-37) Red Cell Distribution Width 14.0 % (11.5-14.5) Platelet Count 195 x10^3/uL (140-400) Neutrophils (%) (Auto) 81 % (31-73) Lymphocytes (%) (Auto) 6 % (24-48) Monocytes (%) (Auto) 11 % (0-9) Eosinophils (%) (Auto) 2 % (0-3) Basophils (%) (Auto) 0 % (0-3) Neutrophils # (Auto) 9.5 x10^3uL (1.8-7.7) Lymphocytes # (Auto) 0.7 x10^3/uL (1.0-4.8) Monocytes # (Auto) 1.3 x10^3/uL (0.0-1.1) Eosinophils # (Auto) 0.2 x10^3/uL (0.0-0.7) Basophils # (Auto) 0.0 x10^3/uL (0.0-0.2) Sodium Level 139 mmol/L (136-145) Potassium Level 4.1 mmol/L (3.5-5.1) Chloride Level 106 mmol/L (98-107) Carbon Dioxide Level 28 mmol/L (21-32) Anion Gap 5 (6-14) Blood Urea Nitrogen 19 mg/dL (8-26) Creatinine 0.7 mg/dL (0.7-1.3) Estimated GFR (Cockcroft-Gault) 107.2 BUN/Creatinine Ratio 27 (6-20) Glucose Level 120 mg/dL (70-99) Calcium Level 9.2 mg/dL (8.5-10.1) Phosphorus Level 3.0 mg/dL (2.6-4.7) Magnesium Level 2.2 mg/dL (1.8-2.4) Total Bilirubin 1.1 mg/dL (0.2-1.0) Aspartate Amino Transf (AST/SGOT) 58 U/L (15-37) Alanine Aminotransferase (ALT/SGPT) 67 U/L (16-63) Alkaline Phosphatase 147 U/L (46-116) Total Protein 5.2 g/dL (6.4-8.2) Albumin 1.4 g/dL (3.4-5.0) Albumin/Globulin Ratio 0.4 (1.0-1.7) O2 Saturation 96 % (92-99) Arterial Blood pH 7.47 (7.35-7.45) Arterial Blood pCO2 at Patient Temp 34 mmHg (35-46) Arterial Blood pO2 at Patient Temp 84 mmHg (65-108) Arterial Blood HCO3 24 mmol/L (21-28) Arterial Blood Base Excess 1 mmol/L (-3-3) FiO2 35 Review of Systems Review of Systems intubated Assessment and Plan Assessmemt and Plan Problems Medical Problems: (1) Upper GI bleeding Status: Acute Problems: Comment Review of Relevant I have reviewed the following items cordell (where applicable) has been applied. Labs Laboratory Tests Test 11/27/16 11:11 11/27/16 17:11 11/28/16 06:31 11/28/16 06:35 Glucose (Fingerstick) 126 mg/dL (70-99) 86 mg/dL (70-99) 129 mg/dL (70-99) White Blood Count 11.4 x10^3/uL (4.0-11.0) Red Blood Count 3.02 x10^6/uL (4.30-5.70) Hemoglobin 10.0 g/dL (13.0-17.5) Hematocrit 29.5 % (39.0-53.0) Mean Corpuscular Volume 98 fL (79-100) Mean Corpuscular Hemoglobin 33 pg (25-35) Mean Corpuscular Hemoglobin Concent 34 g/dL (31-37) Red Cell Distribution Width 14.7 % (11.5-14.5) Platelet Count 162 x10^3/uL (140-400) Neutrophils (%) (Auto) 81 % (31-73) Lymphocytes (%) (Auto) 7 % (24-48) Monocytes (%) (Auto) 11 % (0-9) Eosinophils (%) (Auto) 2 % (0-3) Basophils (%) (Auto) 0 % (0-3) Neutrophils # (Auto) 9.2 x10^3uL (1.8-7.7) Lymphocytes # (Auto) 0.7 x10^3/uL (1.0-4.8) Monocytes # (Auto) 1.2 x10^3/uL (0.0-1.1) Eosinophils # (Auto) 0.2 x10^3/uL (0.0-0.7) Basophils # (Auto) 0.0 x10^3/uL (0.0-0.2) Sodium Level 139 mmol/L (136-145) Potassium Level 4.2 mmol/L (3.5-5.1) Chloride Level 106 mmol/L (98-107) Carbon Dioxide Level 27 mmol/L (21-32) Anion Gap 6 (6-14) Blood Urea Nitrogen 17 mg/dL (8-26) Creatinine 0.7 mg/dL (0.7-1.3) Estimated GFR (Cockcroft-Gault) 107.2 Glucose Level 121 mg/dL (70-99) Calcium Level 9.0 mg/dL (8.5-10.1) Phosphorus Level 3.6 mg/dL (2.6-4.7) Magnesium Level 2.3 mg/dL (1.8-2.4) Test 11/28/16 08:00 11/28/16 08:59 11/29/16 06:00 11/29/16 08:00 O2 Saturation 96 % (92-99) 96 % (92-99) Arterial Blood pH 7.49 (7.35-7.45) 7.47 (7.35-7.45) Arterial Blood pCO2 at Patient Temp 31 mmHg (35-46) 34 mmHg (35-46) Arterial Blood pO2 at Patient Temp 81 mmHg (65-108) 84 mmHg (65-108) Arterial Blood HCO3 23 mmol/L (21-28) 24 mmol/L (21-28) Arterial Blood Base Excess 0 mmol/L (-3-3) 1 mmol/L (-3-3) FiO2 35 35 Glucose (Fingerstick) 123 mg/dL (70-99) White Blood Count 11.7 x10^3/uL (4.0-11.0) Red Blood Count 3.00 x10^6/uL (4.30-5.70) Hemoglobin 9.9 g/dL (13.0-17.5) Hematocrit 29.0 % (39.0-53.0) Mean Corpuscular Volume 97 fL (79-100) Mean Corpuscular Hemoglobin 33 pg (25-35) Mean Corpuscular Hemoglobin Concent 34 g/dL (31-37) Red Cell Distribution Width 14.0 % (11.5-14.5) Platelet Count 195 x10^3/uL (140-400) Neutrophils (%) (Auto) 81 % (31-73) Lymphocytes (%) (Auto) 6 % (24-48) Monocytes (%) (Auto) 11 % (0-9) Eosinophils (%) (Auto) 2 % (0-3) Basophils (%) (Auto) 0 % (0-3) Neutrophils # (Auto) 9.5 x10^3uL (1.8-7.7) Lymphocytes # (Auto) 0.7 x10^3/uL (1.0-4.8) Monocytes # (Auto) 1.3 x10^3/uL (0.0-1.1) Eosinophils # (Auto) 0.2 x10^3/uL (0.0-0.7) Basophils # (Auto) 0.0 x10^3/uL (0.0-0.2) Sodium Level 139 mmol/L (136-145) Potassium Level 4.1 mmol/L (3.5-5.1) Chloride Level 106 mmol/L (98-107) Carbon Dioxide Level 28 mmol/L (21-32) Anion Gap 5 (6-14) Blood Urea Nitrogen 19 mg/dL (8-26) Creatinine 0.7 mg/dL (0.7-1.3) Estimated GFR (Cockcroft-Gault) 107.2 BUN/Creatinine Ratio 27 (6-20) Glucose Level 120 mg/dL (70-99) Calcium Level 9.2 mg/dL (8.5-10.1) Phosphorus Level 3.0 mg/dL (2.6-4.7) Magnesium Level 2.2 mg/dL (1.8-2.4) Total Bilirubin 1.1 mg/dL (0.2-1.0) Aspartate Amino Transf (AST/SGOT) 58 U/L (15-37) Alanine Aminotransferase (ALT/SGPT) 67 U/L (16-63) Alkaline Phosphatase 147 U/L (46-116) Total Protein 5.2 g/dL (6.4-8.2) Albumin 1.4 g/dL (3.4-5.0) Albumin/Globulin Ratio 0.4 (1.0-1.7) Laboratory Tests Test 11/29/16 06:00 11/29/16 08:00 White Blood Count 11.7 x10^3/uL (4.0-11.0) Red Blood Count 3.00 x10^6/uL (4.30-5.70) Hemoglobin 9.9 g/dL (13.0-17.5) Hematocrit 29.0 % (39.0-53.0) Mean Corpuscular Volume 97 fL (79-100) Mean Corpuscular Hemoglobin 33 pg (25-35) Mean Corpuscular Hemoglobin Concent 34 g/dL (31-37) Red Cell Distribution Width 14.0 % (11.5-14.5) Platelet Count 195 x10^3/uL (140-400) Neutrophils (%) (Auto) 81 % (31-73) Lymphocytes (%) (Auto) 6 % (24-48) Monocytes (%) (Auto) 11 % (0-9) Eosinophils (%) (Auto) 2 % (0-3) Basophils (%) (Auto) 0 % (0-3) Neutrophils # (Auto) 9.5 x10^3uL (1.8-7.7) Lymphocytes # (Auto) 0.7 x10^3/uL (1.0-4.8) Monocytes # (Auto) 1.3 x10^3/uL (0.0-1.1) Eosinophils # (Auto) 0.2 x10^3/uL (0.0-0.7) Basophils # (Auto) 0.0 x10^3/uL (0.0-0.2) Sodium Level 139 mmol/L (136-145) Potassium Level 4.1 mmol/L (3.5-5.1) Chloride Level 106 mmol/L (98-107) Carbon Dioxide Level 28 mmol/L (21-32) Anion Gap 5 (6-14) Blood Urea Nitrogen 19 mg/dL (8-26) Creatinine 0.7 mg/dL (0.7-1.3) Estimated GFR (Cockcroft-Gault) 107.2 BUN/Creatinine Ratio 27 (6-20) Glucose Level 120 mg/dL (70-99) Calcium Level 9.2 mg/dL (8.5-10.1) Phosphorus Level 3.0 mg/dL (2.6-4.7) Magnesium Level 2.2 mg/dL (1.8-2.4) Total Bilirubin 1.1 mg/dL (0.2-1.0) Aspartate Amino Transf (AST/SGOT) 58 U/L (15-37) Alanine Aminotransferase (ALT/SGPT) 67 U/L (16-63) Alkaline Phosphatase 147 U/L (46-116) Total Protein 5.2 g/dL (6.4-8.2) Albumin 1.4 g/dL (3.4-5.0) Albumin/Globulin Ratio 0.4 (1.0-1.7) O2 Saturation 96 % (92-99) Arterial Blood pH 7.47 (7.35-7.45) Arterial Blood pCO2 at Patient Temp 34 mmHg (35-46) Arterial Blood pO2 at Patient Temp 84 mmHg (65-108) Arterial Blood HCO3 24 mmol/L (21-28) Arterial Blood Base Excess 1 mmol/L (-3-3) FiO2 35 Microbiology 11/25/16 Blood Culture - Preliminary, Resulted NO GROWTH AFTER 4 DAYS 11/24/16 Gram Stain - Final, Complete 11/19/16 Urine Culture - Final, Complete 11/19/16 Urine Culture Result 1 ([facility]) - Final, Complete Medications Current Medications Sodium Chloride 1,000 ml @ 1,000 mls/hr 1X ONCE IV Last administered on 20:55; Start 11/19/16 at 20:45; Stop 11/19/16 at 21:44; Status DC Famotidine (Pepcid) 40 mg 1X ONCE IVP Last administered on 11/19/16 21:54; Start 11/19/16 at 21:30; Stop 11/19/16 at 21:31; Status DC Ondansetron HCl (Zofran) 4 mg PRN Q8HRS PRN IV NAUSEA/VOMITING Last administered on 11/19/16 21:54; Start 11/19/16 at 21:45; Stop 11/20/16 at 10:44 ; Status DC Morphine Sulfate 2 mg PRN Q2HR PRN IV PAIN; Start 11/19/16 at 21:45; Stop 11/20 at 21:44; Status DC Sodium Chloride 1,000 ml @ 110 mls/hr Q9H6M IV Last administered on 11/20/16 17:53; Start 11/19/16 at 21:41; Stop 11/20/16 at 21:40; Status DC Ondansetron HCl (Zofran) 4 mg PRN Q6HRS PRN IV NAUSEA/VOMITING; Start 11/20/16 at 10:42; Stop 11/21/16 at 10:41; Status DC Famotidine (Pepcid) 20 mg BID IVP Last administered on 11/29/16 07:41; Start 11/20/16 at 11:00 Atorvastatin Calcium (Lipitor) 10 mg QHS PO Last administered on 11/25/16 22: 06; Start 11/20/16 at 21:00 Dutasteride (Avodart) 0.5 mg DAILY PO ; Start 11/20/16 at 11:00 Labetalol HCl (Normodyne) 10 mg PRN Q2HR PRN IVP HYPERTENSION, SEE COMMENTS; Start 11/20/16 at 10:45 Acetaminophen (Tylenol) 500 mg PRN Q6HRS PRN PO MILD PAIN / TEMP; Start at 10:45 Ondansetron HCl (Zofran) 4 mg PRN Q6HRS PRN IV NAUSEA/VOMITING; Start 11/21/16 at 07:00; Stop 11/22/16 at 06:59; Status DC Fentanyl Citrate (Fentanyl 2ml Vial) 25 mcg PRN Q5MIN PRN IV MILD PAIN; Start 11/21/16 at 07:00; Stop 11/22/16 at 06:59; Status DC Fentanyl Citrate (Fentanyl 2ml Vial) 50 mcg PRN Q5MIN PRN IV MODERATE PAIN; Start 11/21/16 at 07:00; Stop 11/22/16 at 06:59; Status DC Morphine Sulfate 1 mg PRN Q10MIN PRN IV SEVERE PAIN; Start 11/21/16 at 07:00; Stop 11/22/16 at 06:59; Status DC Ringer's Solution 1,000 ml @ 30 mls/hr Q24H IV ; Start 11/21/16 at 07:00; Stop 11/21/16 at 18:59; Status DC Lidocaine HCl 2 ml PRN 1X PRN ID PRIOR TO IV START; Start 11/21/16 at 07:00; Stop 11/22/16 at 06:59; Status DC Hydromorphone HCl (Dilaudid) 0.5 mg PRN Q10MIN PRN IV SEV PAIN, Second choice; Start 11/21/16 at 07:00; Stop 11/22/16 at 06:59; Status DC Prochlorperazine Edisylate (Compazine) 5 mg PACU PRN PRN IV NAUSEA, MRX1; Start 11/21/16 at 07:00; Stop 11/22/16 at 06:59; Status DC Hydralazine HCl (Apresoline) 10 mg PRN Q4HRS PRN IVP ELEVATED BP, SEE COMMENTS ; Start 11/20/16 at 15:30 Propofol 20 ml @ As Directed STK-MED ONCE IV ; Start 11/21/16 at 07:20; Stop at 07:21; Status DC Lidocaine HCl (Lidocaine Pf 2% Vial) 5 ml STK-MED ONCE .ROUTE ; Start 11/21/16 at 07:20; Stop 11/21/16 at 07:21; Status DC Ondansetron HCl (Zofran) 4 mg STK-MED ONCE .ROUTE ; Start 11/21/16 at 07:20; Stop 11/21/16 at 07:21; Status DC Dexamethasone Sodium Phosphate (Decadron) 20 mg STK-MED ONCE .ROUTE ; Start at 07:20; Stop 11/21/16 at 07:21; Status DC Phenylephrine HCl 1 mg STK-MED ONCE IV ; Start 11/21/16 at 07:21; Stop 11/21/16 at 07:22; Status DC Ephedrine Sulfate 50 mg STK-MED ONCE IV ; Start 11/21/16 at 07:21; Stop at 07:22; Status DC Fentanyl Citrate (Fentanyl 5ml Vial) 250 mcg STK-MED ONCE .ROUTE ; Start at 07:21; Stop 11/21/16 at 07:22; Status DC Rocuronium [place] (Zemuron) 50 mg STK-MED ONCE .ROUTE ; Start 11/21/16 at 07:22 ; Stop 11/21/16 at 07:23; Status DC Famotidine (Pepcid) 20 mg STK-MED ONCE .ROUTE ; Start 11/21/16 at 07:23; Stop at 07:24; Status DC Cellulose 1 each STK-MED ONCE .ROUTE Last administered on 11/21/16 10:29; Start 11/21/16 at 07:33; Stop 11/21/16 at 07:34; Status DC Bupivacaine HCl/ Epinephrine Bitart (Marcaine-Epi 0.5%-[id number]) 50 ml STK-MED ONCE .ROUTE Last administered on 11/21/16 08:43; Start 11/21/16 at 07:34; Stop 11/21/16 at 07:35; Status DC Cefazolin Sodium/ Dextrose 50 ml @ 100 mls/hr 1X PREOP ONCE IV Last administered on 11/21/16 08:25; Start 11/21/16 at 07:37; Stop 11/21/16 at 08:06 ; Status DC Succinylcholine Chloride (Anectine) 200 mg STK-MED ONCE .ROUTE ; Start 11/21/16 at 07:59; Stop 11/21/16 at 08:00; Status DC Sevoflurane (Ultane) 90 ml STK-MED ONCE IH ; Start 11/21/16 at 09:24; Stop 11/21 at 09:25; Status DC Rocuronium [place] (Zemuron) 50 mg STK-MED ONCE .ROUTE ; Start 11/21/16 at 09:25 ; Stop 11/21/16 at 09:26; Status DC Cellulose 1 each STK-MED ONCE .ROUTE ; Start 11/21/16 at 10:11; Stop 11/21/16 at 10:12; Status DC Sodium Bicarbonate 50 meq STK-MED ONCE .ROUTE ; Start 11/21/16 at 10:34; Stop at 10:35; Status DC Rocuronium [place] (Zemuron) 50 mg STK-MED ONCE .ROUTE ; Start 11/21/16 at 11:00 ; Stop 11/21/16 at 11:01; Status DC Sevoflurane (Ultane) 90 ml STK-MED ONCE IH ; Start 11/21/16 at 12:46; Stop 11/21 at 12:47; Status DC Piperacillin Sod/ Tazobactam Sod 3.375 gm/Sodium Chloride 50 ml @ 100 mls/hr Q6HRS IV Last administered on 11/26/16 11:40; Start 11/21/16 at 14:00; Stop at 14:43; Status DC Fentanyl Citrate (Fentanyl 2ml Vial) 25 mcg PRN Q2HR PRN IV PAIN Last administered on 11/24/16 02:49; Start 11/21/16 at 13:30; Stop 11/25/16 at 12:11 ; Status DC Fentanyl Citrate (Fentanyl 2ml Vial) 50 mcg PRN Q2HR PRN IV PAIN Last administered on 11/23/16 09:50; Start 11/21/16 at 13:30; Stop 11/25/16 at 12:11 ; Status DC Propofol 100 ml @ 0 mls/hr CONT PRN IV PER PROTOCOL Last administered on 07:41; Start 11/21/16 at 13:30 Fentanyl Citrate (Fentanyl 2ml Vial) 25 mcg PRN Q1HR PRN IV COMM Last administered on 11/27/16 06:03; Start 11/21/16 at 13:30 Fentanyl Citrate (Fentanyl 2ml Vial) 50 mcg PRN Q1HR PRN IV COMM Last administered on 11/26/16 23:08; Start 11/21/16 at 13:30 Chlorhexidine Gluconate (Peridex) 15 ml BID MM Last administered on 11/29/16 07:41; Start 11/21/16 at 21:00 Potassium Chloride/Dextrose/ Sod Cl 1,000 ml @ 100 mls/hr Q10H IV Last administered on 11/25/16 08:55; Start 11/21/16 at 15:00; Stop 11/25/16 at 21:59 ; Status DC Albuterol/ Ipratropium (Duoneb) 3 ml RTQID NEB Last administered on 11/29/16 08:43; Start 11/23/16 at 16:00 Amino Acids/ Glycerin/ Electrolytes 1,000 ml @ 80 mls/hr [id number] IV ; Start at 16:15; Stop 11/23/16 at 18:21; Status DC Amino Acids/ Glycerin/ Electrolytes 1,000 ml @ 80 mls/hr [id number] IV Last administered on 11/24/16 08:00; Start 11/23/16 at 21:00; Stop 11/24/16 at 13:45 ; Status DC Amino Acids/ Glycerin/ Electrolytes 1,000 ml @ 80 mls/hr [id number] IV Last administered on 11/25/16 08:22; Start 11/25/16 at 08:00; Stop 11/25/16 at 21:59 ; Status DC Linezolid 300 ml @ 300 mls/hr Q12HR IV Last administered on 11/28/16 09:12; Start 11/25/16 at 10:00; Stop 11/28/16 at 12:42; Status DC Info 1 each PRN DAILY PRN MC SEE COMMENTS Last administered on 11/28/16 10:15 ; Start 11/25/16 at 11:15 Sodium Acetate 90 meq/Potassium Chloride 50 meq/ Potassium Phosphate 13.6 mmol/ Magnesium Sulfate 10 meq/ Calcium Gluconate 10 meq/ Multivitamins 10 ml/Chromium / Copper/Manganese/ Seleni/Zn 1 ml/ Total Parenteral Nutrition/Amino Acids/ Dextrose 1,512 ml @ 63 mls/hr TPN CONT IV Last administered on 11/25/16 22: 04; Start 11/25/16 at 22:00; Stop 11/26/16 at 21:59; Status DC Sodium Chloride 45 meq/Sodium Acetate 45 meq/ Potassium Chloride 50 meq/ Potassium Phosphate 17 mmol/ Magnesium Sulfate 16 meq/Calcium Gluconate 14 meq/ Multivitamins 10 ml/Chromium/ Copper/Manganese/ Seleni/Zn 1 ml/ Total Parenteral Nutrition/Amino Acids/Dextrose 1,512 ml @ 63 mls/hr TPN CONT IV Last administered on 11/26/16 21:01; Start 11/26/16 at 22:00; Stop 11/27/16 at 21:59; Status DC Potassium Phosphate 10 mmol/ Sodium Chloride 103.3333 ml @ 51.667 m... Q2H IV Last administered on 11/26/16 14:54; Start 11/26/16 at 13:30; Stop 11/26/16 at 17:29; Status DC Meropenem 500 mg/ Sodium Chloride 50 ml @ 100 mls/hr Q8HRS IV Last administered on 11/29/16 05:49; Start 11/26/16 at 15:00 Potassium Chloride/Dextrose/ Sod Cl 1,000 ml @ 37 mls/hr Q24H IV Last administered on 11/28/16 06:13; Start 11/26/16 at 20:00 Sodium Chloride 45 meq/Sodium Acetate 45 meq/ Potassium Chloride 50 meq/ Potassium Phosphate 17 mmol/ Magnesium Sulfate 12 meq/Calcium Gluconate 12 meq/ Multivitamins 10 ml/Chromium/ Copper/Manganese/ Seleni/Zn 1 ml/ Total Parenteral Nutrition/Amino Acids/Dextrose/ Fat Emulsion Intravenous 1,512 ml @ 63 mls/hr TPN CONT IV Last administered on 11/27/16 22:11; Start 11/27/16 at 22:00; Stop 11/28/16 at 21:59; Status DC Sodium Chloride 45 meq/Sodium Acetate 45 meq/ Potassium Chloride 50 meq/ Potassium Phosphate 17 mmol/ Magnesium Sulfate 12 meq/Calcium Gluconate 10 meq/ Multivitamins 10 ml/Chromium/ Copper/Manganese/ Seleni/Zn 1 ml/ Total Parenteral Nutrition/Amino Acids/Dextrose 1,512 ml @ 63 mls/hr TPN CONT IV Last administered on 11/28/16 21:35; Start 11/28/16 at 22:00; Stop 11/29/16 at 21:59 Active Scripts Active Reported Aspir 81 (Aspirin) 81 Mg Tablet.dr 81 Mg PO DAILY Atorvastatin Calcium 10 Mg Tablet 1 Tab PO DAILY Aspirin 81 Mg Tab.chew 1 Tab PO DAILY Avodart (Dutasteride) 0.5 Mg Capsule 1 Cap PO DAILY Vitals/I & O Vital Sign - Last 24 Hours 11/28/16 11/28/16 11/28/16 11/28/16 10:00 11:00 12:00 12:00 Temp 99.9 99.9 Pulse 60 60 60 Resp 20 22 23 B/P (MAP) 135/65 (88) 133/66 (88) 117/58 (77) Pulse Ox 100 100 100 O2 Delivery Ventilator Ventilator Mechanical Ventilator Ventilator 11/28/16 11/28/16 11/28/16 11/28/16 12:15 13:00 14:00 15:00 Pulse 60 60 60 Resp 19 21 19 B/P (MAP) 128/60 (82) 94/51 (65) 109/60 (76) Pulse Ox 100 100 100 100 O2 Delivery Ventilator Ventilator Ventilator Ventilator 11/28/16 11/28/16 11/28/16 11/28/16 16:00 16:00 16:36 17:00 Temp 97.6 97.6 Pulse 60 60 Resp 20 60 B/P (MAP) 113/56 (75) 135/69 (91) Pulse Ox 100 100 100 O2 Delivery Ventilator Mechanical Ventilator Ventilator Ventilator 11/28/16 11/28/16 11/28/16 11/28/16 18:00 19:00 20:00 20:02 Temp 99.7 99.7 Pulse 60 60 60 Resp 19 20 20 B/P (MAP) 151/59 (89) 135/72 (93) 148/69 (95) Pulse Ox 100 94 94 O2 Delivery Ventilator Ventilator Mechanical Ventilator Ventilator 11/28/16 11/28/16 11/28/16 11/28/16 20:20 21:00 22:00 23:00 Pulse 60 60 60 Resp 20 20 20 B/P (MAP) 134/52 (79) 136/57 (83) 124/52 (76) Pulse Ox 100 100 100 100 O2 Delivery Ventilator Ventilator Ventilator Ventilator 11/28/16 11/29/16 11/29/16 11/29/16 23:23 00:00 00:04 01:00 Pulse 60 60 Resp 20 20 B/P (MAP) 124/50 (74) 113/50 (71) Pulse Ox 100 100 100 O2 Delivery Ventilator Ventilator Mechanical Ventilator Ventilator 11/29/16 11/29/16 11/29/16 11/29/16 01:31 02:00 03:00 04:00 Pulse 60 60 Resp 20 20 B/P (MAP) 119/59 (79) 99/58 (72) Pulse Ox 100 100 100 O2 Delivery Ventilator Ventilator Ventilator Mechanical Ventilator 11/29/16 11/29/16 11/29/16 11/29/16 04:00 04:25 05:08 06:00 Pulse 60 60 60 Resp 20 22 22 B/P (MAP) 119/59 (79) 96/52 (67) 115/54 (74) Pulse Ox 100 100 99 99 O2 Delivery Ventilator Ventilator Ventilator Ventilator 11/29/16 11/29/16 08:43 09:47 Pulse Ox 100 99 O2 Delivery Ventilator Ventilator Intake and Output 11/28/16 11/28/16 11/29/16 15:00 23:00 07:00 Intake Total 2948.0 ml 1457 ml Output Total 1435 ml 1245 ml 1100 ml Balance -1435 ml 1703.0 ml 357 ml HENRIK YORK MD Nov 29, 2016 10:01
--- NOTE | 2016-11-29 10:10 | PDOC ---
PULMONARY PROGRESS NOTES Subjective PT APPEARS MORE AWAKE TOLERATING PS 14 APPEARS TO FOLLOW COMMANDS Vitals Vital Signs Date Time Temp Pulse Resp B/P (MAP) Pulse Ox O2 Delivery O2 Flow Rate FiO2 11/29/16 09:47 99 Ventilator 11/29/16 06:00 60 22 115/54 (74) 11/28/16 19:00 99.7 99.7 HEENT: Other (nc at perrl, orally intubated, nose clear, neck, no thyromegaly, no lap) Lungs: Crackles Cardiovascular: S1, S2 Abdomen: Soft, Non-tender, Other (no mass) Extremities: No Edema Skin: Warm Labs Laboratory Tests Test 11/27/16 11:11 11/27/16 17:11 11/28/16 06:31 11/28/16 06:35 Glucose (Fingerstick) 126 mg/dL (70-99) 86 mg/dL (70-99) 129 mg/dL (70-99) White Blood Count 11.4 x10^3/uL (4.0-11.0) Red Blood Count 3.02 x10^6/uL (4.30-5.70) Hemoglobin 10.0 g/dL (13.0-17.5) Hematocrit 29.5 % (39.0-53.0) Mean Corpuscular Volume 98 fL (79-100) Mean Corpuscular Hemoglobin 33 pg (25-35) Mean Corpuscular Hemoglobin Concent 34 g/dL (31-37) Red Cell Distribution Width 14.7 % (11.5-14.5) Platelet Count 162 x10^3/uL (140-400) Neutrophils (%) (Auto) 81 % (31-73) Lymphocytes (%) (Auto) 7 % (24-48) Monocytes (%) (Auto) 11 % (0-9) Eosinophils (%) (Auto) 2 % (0-3) Basophils (%) (Auto) 0 % (0-3) Neutrophils # (Auto) 9.2 x10^3uL (1.8-7.7) Lymphocytes # (Auto) 0.7 x10^3/uL (1.0-4.8) Monocytes # (Auto) 1.2 x10^3/uL (0.0-1.1) Eosinophils # (Auto) 0.2 x10^3/uL (0.0-0.7) Basophils # (Auto) 0.0 x10^3/uL (0.0-0.2) Sodium Level 139 mmol/L (136-145) Potassium Level 4.2 mmol/L (3.5-5.1) Chloride Level 106 mmol/L (98-107) Carbon Dioxide Level 27 mmol/L (21-32) Anion Gap 6 (6-14) Blood Urea Nitrogen 17 mg/dL (8-26) Creatinine 0.7 mg/dL (0.7-1.3) Estimated GFR (Cockcroft-Gault) 107.2 Glucose Level 121 mg/dL (70-99) Calcium Level 9.0 mg/dL (8.5-10.1) Phosphorus Level 3.6 mg/dL (2.6-4.7) Magnesium Level 2.3 mg/dL (1.8-2.4) Test 11/28/16 08:00 11/28/16 08:59 11/29/16 06:00 11/29/16 08:00 O2 Saturation 96 % (92-99) 96 % (92-99) Arterial Blood pH 7.49 (7.35-7.45) 7.47 (7.35-7.45) Arterial Blood pCO2 at Patient Temp 31 mmHg (35-46) 34 mmHg (35-46) Arterial Blood pO2 at Patient Temp 81 mmHg (65-108) 84 mmHg (65-108) Arterial Blood HCO3 23 mmol/L (21-28) 24 mmol/L (21-28) Arterial Blood Base Excess 0 mmol/L (-3-3) 1 mmol/L (-3-3) FiO2 35 35 Glucose (Fingerstick) 123 mg/dL (70-99) White Blood Count 11.7 x10^3/uL (4.0-11.0) Red Blood Count 3.00 x10^6/uL (4.30-5.70) Hemoglobin 9.9 g/dL (13.0-17.5) Hematocrit 29.0 % (39.0-53.0) Mean Corpuscular Volume 97 fL (79-100) Mean Corpuscular Hemoglobin 33 pg (25-35) Mean Corpuscular Hemoglobin Concent 34 g/dL (31-37) Red Cell Distribution Width 14.0 % (11.5-14.5) Platelet Count 195 x10^3/uL (140-400) Neutrophils (%) (Auto) 81 % (31-73) Lymphocytes (%) (Auto) 6 % (24-48) Monocytes (%) (Auto) 11 % (0-9) Eosinophils (%) (Auto) 2 % (0-3) Basophils (%) (Auto) 0 % (0-3) Neutrophils # (Auto) 9.5 x10^3uL (1.8-7.7) Lymphocytes # (Auto) 0.7 x10^3/uL (1.0-4.8) Monocytes # (Auto) 1.3 x10^3/uL (0.0-1.1) Eosinophils # (Auto) 0.2 x10^3/uL (0.0-0.7) Basophils # (Auto) 0.0 x10^3/uL (0.0-0.2) Sodium Level 139 mmol/L (136-145) Potassium Level 4.1 mmol/L (3.5-5.1) Chloride Level 106 mmol/L (98-107) Carbon Dioxide Level 28 mmol/L (21-32) Anion Gap 5 (6-14) Blood Urea Nitrogen 19 mg/dL (8-26) Creatinine 0.7 mg/dL (0.7-1.3) Estimated GFR (Cockcroft-Gault) 107.2 BUN/Creatinine Ratio 27 (6-20) Glucose Level 120 mg/dL (70-99) Calcium Level 9.2 mg/dL (8.5-10.1) Phosphorus Level 3.0 mg/dL (2.6-4.7) Magnesium Level 2.2 mg/dL (1.8-2.4) Total Bilirubin 1.1 mg/dL (0.2-1.0) Aspartate Amino Transf (AST/SGOT) 58 U/L (15-37) Alanine Aminotransferase (ALT/SGPT) 67 U/L (16-63) Alkaline Phosphatase 147 U/L (46-116) Total Protein 5.2 g/dL (6.4-8.2) Albumin 1.4 g/dL (3.4-5.0) Albumin/Globulin Ratio 0.4 (1.0-1.7) Laboratory Tests Test 11/29/16 06:00 11/29/16 08:00 White Blood Count 11.7 x10^3/uL (4.0-11.0) Red Blood Count 3.00 x10^6/uL (4.30-5.70) Hemoglobin 9.9 g/dL (13.0-17.5) Hematocrit 29.0 % (39.0-53.0) Mean Corpuscular Volume 97 fL (79-100) Mean Corpuscular Hemoglobin 33 pg (25-35) Mean Corpuscular Hemoglobin Concent 34 g/dL (31-37) Red Cell Distribution Width 14.0 % (11.5-14.5) Platelet Count 195 x10^3/uL (140-400) Neutrophils (%) (Auto) 81 % (31-73) Lymphocytes (%) (Auto) 6 % (24-48) Monocytes (%) (Auto) 11 % (0-9) Eosinophils (%) (Auto) 2 % (0-3) Basophils (%) (Auto) 0 % (0-3) Neutrophils # (Auto) 9.5 x10^3uL (1.8-7.7) Lymphocytes # (Auto) 0.7 x10^3/uL (1.0-4.8) Monocytes # (Auto) 1.3 x10^3/uL (0.0-1.1) Eosinophils # (Auto) 0.2 x10^3/uL (0.0-0.7) Basophils # (Auto) 0.0 x10^3/uL (0.0-0.2) Sodium Level 139 mmol/L (136-145) Potassium Level 4.1 mmol/L (3.5-5.1) Chloride Level 106 mmol/L (98-107) Carbon Dioxide Level 28 mmol/L (21-32) Anion Gap 5 (6-14) Blood Urea Nitrogen 19 mg/dL (8-26) Creatinine 0.7 mg/dL (0.7-1.3) Estimated GFR (Cockcroft-Gault) 107.2 BUN/Creatinine Ratio 27 (6-20) Glucose Level 120 mg/dL (70-99) Calcium Level 9.2 mg/dL (8.5-10.1) Phosphorus Level 3.0 mg/dL (2.6-4.7) Magnesium Level 2.2 mg/dL (1.8-2.4) Total Bilirubin 1.1 mg/dL (0.2-1.0) Aspartate Amino Transf (AST/SGOT) 58 U/L (15-37) Alanine Aminotransferase (ALT/SGPT) 67 U/L (16-63) Alkaline Phosphatase 147 U/L (46-116) Total Protein 5.2 g/dL (6.4-8.2) Albumin 1.4 g/dL (3.4-5.0) Albumin/Globulin Ratio 0.4 (1.0-1.7) O2 Saturation 96 % (92-99) Arterial Blood pH 7.47 (7.35-7.45) Arterial Blood pCO2 at Patient Temp 34 mmHg (35-46) Arterial Blood pO2 at Patient Temp 84 mmHg (65-108) Arterial Blood HCO3 24 mmol/L (21-28) Arterial Blood Base Excess 1 mmol/L (-3-3) FiO2 35 Medications Active Scripts Medications Dose Route/Sig Max Daily Dose Days Date Category Aspir 81 (Aspirin) 81 Mg Tablet.dr 81 Mg PO DAILY 06/08/14 Reported Atorvastatin Calcium 10 Mg Tablet 1 Tab PO DAILY 03/10/14 Reported Aspirin 81 Mg Tab.chew 1 Tab PO DAILY 01/29/14 Reported Avodart (Dutasteride) 0.5 Mg Capsule 1 Cap PO DAILY 01/29/14 Reported Comments CXR 11/28 1. Stable tube positions. 2. Unchanged moderate patchy bilateral pulmonary infiltrates again suggesting pulmonary edema and/or pneumonia. 3. Increasing small bilateral pleural effusions Impression . ACUTE RESP FAILURE MULTIFACTORIAL ASPIRATION PNEUMONIA S/P SEE OP NOTE Laparoscopic repair of large paraesophageal hernia, MELENA ARF ABNL CXR POSSIBLE EDEMA AND PNEUMONIA MALNUTRITION DEMENTIA Plan . PT MORE AWAKE WILL PLACE ON PS AND SEE HOW HE TOLERATE IT CONTINUE SUPPORT FOR NOW, CALL DAUGHTER AND LEFT MESSAGE INDICATING THAT PT IS MORE AWAKE AND WE WILL CONTINUE TO WEAN SPOKE WITH , PATIENT AND WISHES ARE NOT TO PROCEED WITH TRACH AT THIS TIME PT HAD A POOR QUALITY OF LIFE PRIOR TO SURGERY WILL CONTINUE AGGRESSIVE MEASURE IF NO IMPROVEMENT WAS CONTEMPLATING ON WITHDRAWAL OF CARE, DAUGHTER DOES NOT AGREE, WILL CONSULT PALLIATIVE CARE BROCH 11/04, BAL NEGATIVE ANTIBX BRONCHODILATORS SABRINA VALLEJO MD Nov 29, 2016 10:10
--- NOTE | 2016-11-29 12:41 | PDOC ---
QIANA GIBSON [employer] 11/29/16 1241: SURGICAL PROGRESS NOTE Subjective more awake on vent family present Vital Signs Vital Signs Date Time Temp Pulse Resp B/P (MAP) Pulse Ox O2 Delivery O2 Flow Rate FiO2 11/29/16 11:21 100 Ventilator 11/29/16 06:00 60 22 115/54 (74) 11/28/16 19:00 99.7 99.7 I&O Intake and Output 11/29/16 07:00 Intake Total 4405.0 ml Output Total 3780 ml Balance 625.0 ml Intake Oral 0 ml IV Total 4405.0 ml Output Urine Total 3280 ml Drainage Total 500 ml General: Cooperative, No acute distress Abdomen: Soft, Other (G tube in place) Labs Laboratory Tests Test 11/27/16 17:11 11/28/16 06:31 11/28/16 06:35 11/28/16 08:00 Glucose (Fingerstick) 86 mg/dL (70-99) 129 mg/dL (70-99) White Blood Count 11.4 x10^3/uL (4.0-11.0) Red Blood Count 3.02 x10^6/uL (4.30-5.70) Hemoglobin 10.0 g/dL (13.0-17.5) Hematocrit 29.5 % (39.0-53.0) Mean Corpuscular Volume 98 fL (79-100) Mean Corpuscular Hemoglobin 33 pg (25-35) Mean Corpuscular Hemoglobin Concent 34 g/dL (31-37) Red Cell Distribution Width 14.7 % (11.5-14.5) Platelet Count 162 x10^3/uL (140-400) Neutrophils (%) (Auto) 81 % (31-73) Lymphocytes (%) (Auto) 7 % (24-48) Monocytes (%) (Auto) 11 % (0-9) Eosinophils (%) (Auto) 2 % (0-3) Basophils (%) (Auto) 0 % (0-3) Neutrophils # (Auto) 9.2 x10^3uL (1.8-7.7) Lymphocytes # (Auto) 0.7 x10^3/uL (1.0-4.8) Monocytes # (Auto) 1.2 x10^3/uL (0.0-1.1) Eosinophils # (Auto) 0.2 x10^3/uL (0.0-0.7) Basophils # (Auto) 0.0 x10^3/uL (0.0-0.2) Sodium Level 139 mmol/L (136-145) Potassium Level 4.2 mmol/L (3.5-5.1) Chloride Level 106 mmol/L (98-107) Carbon Dioxide Level 27 mmol/L (21-32) Anion Gap 6 (6-14) Blood Urea Nitrogen 17 mg/dL (8-26) Creatinine 0.7 mg/dL (0.7-1.3) Estimated GFR (Cockcroft-Gault) 107.2 Glucose Level 121 mg/dL (70-99) Calcium Level 9.0 mg/dL (8.5-10.1) Phosphorus Level 3.6 mg/dL (2.6-4.7) Magnesium Level 2.3 mg/dL (1.8-2.4) O2 Saturation 96 % (92-99) Arterial Blood pH 7.49 (7.35-7.45) Arterial Blood pCO2 at Patient Temp 31 mmHg (35-46) Arterial Blood pO2 at Patient Temp 81 mmHg (65-108) Arterial Blood HCO3 23 mmol/L (21-28) Arterial Blood Base Excess 0 mmol/L (-3-3) FiO2 35 Test 11/28/16 08:59 11/29/16 06:00 11/29/16 08:00 Glucose (Fingerstick) 123 mg/dL (70-99) White Blood Count 11.7 x10^3/uL (4.0-11.0) Red Blood Count 3.00 x10^6/uL (4.30-5.70) Hemoglobin 9.9 g/dL (13.0-17.5) Hematocrit 29.0 % (39.0-53.0) Mean Corpuscular Volume 97 fL (79-100) Mean Corpuscular Hemoglobin 33 pg (25-35) Mean Corpuscular Hemoglobin Concent 34 g/dL (31-37) Red Cell Distribution Width 14.0 % (11.5-14.5) Platelet Count 195 x10^3/uL (140-400) Neutrophils (%) (Auto) 81 % (31-73) Lymphocytes (%) (Auto) 6 % (24-48) Monocytes (%) (Auto) 11 % (0-9) Eosinophils (%) (Auto) 2 % (0-3) Basophils (%) (Auto) 0 % (0-3) Neutrophils # (Auto) 9.5 x10^3uL (1.8-7.7) Lymphocytes # (Auto) 0.7 x10^3/uL (1.0-4.8) Monocytes # (Auto) 1.3 x10^3/uL (0.0-1.1) Eosinophils # (Auto) 0.2 x10^3/uL (0.0-0.7) Basophils # (Auto) 0.0 x10^3/uL (0.0-0.2) Sodium Level 139 mmol/L (136-145) Potassium Level 4.1 mmol/L (3.5-5.1) Chloride Level 106 mmol/L (98-107) Carbon Dioxide Level 28 mmol/L (21-32) Anion Gap 5 (6-14) Blood Urea Nitrogen 19 mg/dL (8-26) Creatinine 0.7 mg/dL (0.7-1.3) Estimated GFR (Cockcroft-Gault) 107.2 BUN/Creatinine Ratio 27 (6-20) Glucose Level 120 mg/dL (70-99) Calcium Level 9.2 mg/dL (8.5-10.1) Phosphorus Level 3.0 mg/dL (2.6-4.7) Magnesium Level 2.2 mg/dL (1.8-2.4) Total Bilirubin 1.1 mg/dL (0.2-1.0) Aspartate Amino Transf (AST/SGOT) 58 U/L (15-37) Alanine Aminotransferase (ALT/SGPT) 67 U/L (16-63) Alkaline Phosphatase 147 U/L (46-116) Total Protein 5.2 g/dL (6.4-8.2) Albumin 1.4 g/dL (3.4-5.0) Albumin/Globulin Ratio 0.4 (1.0-1.7) O2 Saturation 96 % (92-99) Arterial Blood pH 7.47 (7.35-7.45) Arterial Blood pCO2 at Patient Temp 34 mmHg (35-46) Arterial Blood pO2 at Patient Temp 84 mmHg (65-108) Arterial Blood HCO3 24 mmol/L (21-28) Arterial Blood Base Excess 1 mmol/L (-3-3) FiO2 35 Laboratory Tests Test 11/29/16 06:00 11/29/16 08:00 White Blood Count 11.7 x10^3/uL (4.0-11.0) Red Blood Count 3.00 x10^6/uL (4.30-5.70) Hemoglobin 9.9 g/dL (13.0-17.5) Hematocrit 29.0 % (39.0-53.0) Mean Corpuscular Volume 97 fL (79-100) Mean Corpuscular Hemoglobin 33 pg (25-35) Mean Corpuscular Hemoglobin Concent 34 g/dL (31-37) Red Cell Distribution Width 14.0 % (11.5-14.5) Platelet Count 195 x10^3/uL (140-400) Neutrophils (%) (Auto) 81 % (31-73) Lymphocytes (%) (Auto) 6 % (24-48) Monocytes (%) (Auto) 11 % (0-9) Eosinophils (%) (Auto) 2 % (0-3) Basophils (%) (Auto) 0 % (0-3) Neutrophils # (Auto) 9.5 x10^3uL (1.8-7.7) Lymphocytes # (Auto) 0.7 x10^3/uL (1.0-4.8) Monocytes # (Auto) 1.3 x10^3/uL (0.0-1.1) Eosinophils # (Auto) 0.2 x10^3/uL (0.0-0.7) Basophils # (Auto) 0.0 x10^3/uL (0.0-0.2) Sodium Level 139 mmol/L (136-145) Potassium Level 4.1 mmol/L (3.5-5.1) Chloride Level 106 mmol/L (98-107) Carbon Dioxide Level 28 mmol/L (21-32) Anion Gap 5 (6-14) Blood Urea Nitrogen 19 mg/dL (8-26) Creatinine 0.7 mg/dL (0.7-1.3) Estimated GFR (Cockcroft-Gault) 107.2 BUN/Creatinine Ratio 27 (6-20) Glucose Level 120 mg/dL (70-99) Calcium Level 9.2 mg/dL (8.5-10.1) Phosphorus Level 3.0 mg/dL (2.6-4.7) Magnesium Level 2.2 mg/dL (1.8-2.4) Total Bilirubin 1.1 mg/dL (0.2-1.0) Aspartate Amino Transf (AST/SGOT) 58 U/L (15-37) Alanine Aminotransferase (ALT/SGPT) 67 U/L (16-63) Alkaline Phosphatase 147 U/L (46-116) Total Protein 5.2 g/dL (6.4-8.2) Albumin 1.4 g/dL (3.4-5.0) Albumin/Globulin Ratio 0.4 (1.0-1.7) O2 Saturation 96 % (92-99) Arterial Blood pH 7.47 (7.35-7.45) Arterial Blood pCO2 at Patient Temp 34 mmHg (35-46) Arterial Blood pO2 at Patient Temp 84 mmHg (65-108) Arterial Blood HCO3 24 mmol/L (21-28) Arterial Blood Base Excess 1 mmol/L (-3-3) FiO2 35 Problem List Problems Medical Problems: (1) Upper GI bleeding Status: Acute Assessment/Plan s/p partial gastrectomy supportive care, no acute recs Problems: SYDNEE MCCRACKEN MD 12/01/16 0652: SURGICAL PROGRESS NOTE Assessment/Plan Agree with above Problems: QIANA GIBSON APRN Nov 29, 2016 12:41 SYDNEE MCCRACKEN MD Dec 01, 2016 06:52
[2016-11-29] MEDS: TPN PER PHARMACY MC PRN (12:42)
[2016-11-29] MEDS: ATORVASTATIN CALCIUM 10 MG TABLET. PO SCH (21:02)
[2016-11-29] MEDS: POTASSIUM CL 20MEQ D5-0.45NACL 1,000 ML IV SCH (21:02)
[2016-11-29] MEDS ORDERED: [UNRECOGNIZED DRUG - OTHER] IV SCH ×9 (22:00)
[2016-11-29] MEDS ORDERED: DEXTROSE 70% IV SCH ×9 (22:00)
[2016-11-29] MEDS ORDERED: AMINO ACIDS IV SCH ×9 (22:00)
[2016-11-29] MEDS ORDERED: TOTAL PARENTERAL NUTRITION IV SCH ×9 (22:00)
[2016-11-30] VITALS (18 sets, daily range): BP systolic 95–154; BP diastolic 46–74
[2016-11-30] MEDS: PROPOFOL 100 ML IV PRN (03:36)
[2016-11-30] MEDS: MEROPENEM 500 MG in IV NORMAL SALINE 50ML 50 ML IV SCH ×3 (05:08→21:30)
[2016-11-30] MEDS: IPRATRPIUM/ALBUTEROL 0.5/2.5MG 3 ML NEBU. NEB SCH ×4 (07:48→19:58)
[2016-11-30 07:57] LABS: HCO3 ABG 23 mmol/L (21-28); PCO2 ABG 32 mmHg (35-46); PH ABG 7.48 (7.35-7.45); PO2 ABG 95 mmHg (65-108); SAT O2 ABG 97 % (92-99)
[2016-11-30] MEDS: DUTASTERIDE 0.5 MG CAPSULE PO SCH (09:00)
[2016-11-30 09:22] LABS: FIO2 ABG 35
[2016-11-30] MEDS: CHLORHEXIDINE 0.12% 15 ML MOUTHWASH. MM SCH ×2 (09:26→21:26)
[2016-11-30] MEDS: FAMOTIDINE 20 MG/2 ML VIAL IVP SCH ×2 (09:26→21:26)
--- NOTE | 2016-11-30 09:37 | PDOC ---
Infectious Disease Note Subjective Subjective Remains intubated. FiO2 35% TPN Fever Tmax 100.4 No BM last 24 hours recorded Vital Sign Vital Signs Vital Signs Date Time Temp Pulse Resp B/P (MAP) Pulse Ox O2 Delivery O2 Flow Rate FiO2 11/30/16 07:49 100 Ventilator 11/30/16 06:18 99.8 60 20 140/72 (94) 99.8 Physical Exam PHYSICAL EXAM GENERAL: Intubated HEENT: ETT LUNGS: Diminished aeration. HEART: Normal S1 and S2. Pacemaker. ABDOMEN: Mildly distended. Hypoactive BS, soft. No grimace or guarding to palpation. Gastrostomy tube. Midline incision covered. GENITOURINARY: Riddle. EXTREMITIES: Trace edema, no cyanosis. SKIN: Without rash. WIRE TESTER: Eyes partially open, unresponsive to voice LUE - PICC. Clean (11/24). Labs Lab Laboratory Tests Test 11/30/16 06:40 11/30/16 07:45 Glucose (Fingerstick) 118 mg/dL (70-99) O2 Saturation 97 % (92-99) Arterial Blood pH 7.48 (7.35-7.45) Arterial Blood pCO2 at Patient Temp 32 mmHg (35-46) Arterial Blood pO2 at Patient Temp 95 mmHg (65-108) Arterial Blood HCO3 23 mmol/L (21-28) Arterial Blood Base Excess 0 mmol/L (-3-3) FiO2 35 Objective Assessment Fever Leukocytosis, stable Aspiration pneumonia. s/p bronch 11/22. GS: GPC & yeast. Final cx yeast only. 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 Acute respiratory failure Anemia s/p PRBCs 11/27 Pacemaker Dementia Plan Plan of Care Meropenem (started 11/26) Monitor labs Supportive care Attending Co-Sign The patient was seen and interviewed as well as examined at the bedside. The chart was reviewed. The case was discussed. Agree with the plan of care. HAWA BEYER APRN Nov 30, 2016 09:37 JANES BEJARANO MD Nov 30, 2016 12:44
[2016-11-30] MEDS: ENOXAPARIN 40 MG/0.4 ML SYRINGE. SQ SCH (09:39)
--- NOTE | 2016-11-30 10:18 | PDOC ---
PROGRESS NOTES Chief Complaint Chief Complaint hematemesis ASSESSMENT AND PLAN: 1. UGIB: s/p Laparoscopic repair of large paraesophageal hernia, open partial gastrectomy, placement of gastrostomy with gastropexy, nutrition as per general surgery. Place PICC line, start TPN, monitor CBC and a CMP 2. Acute respiratory failure: On mechanical ventilation, off sedation, possible aspiration. sputum cx + GNR. on zyvox and meropenum with ID 3. Leukocytosis 4. Arrhythmia: hx pacer placement 5. Prophylaxis: SCDs; medical anticoag contraindicated, mild thrombocytopenia 6. 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 Monitor .2 Uprbc 11/27 HYPOPHOsphatemia: replete Sarkis overall prognosis guarded as per pulm, no trach from family, may try to wean today or tmr, but likely difficult given bl infiltrates in CXR, if not improving may consider PAT. History of Present Illness History of Present Illness Seen in ICU, intubated, sedated today NOn purposeful movements when off sedation yesterday NOisy BS Pulmo note reviewed, keep intubated or terminal extubation (no LTAC plans) NO trach plans as dw by pulmo (pt had very poor lifestyle/QOL prior to this ) Hgb otherwise stable, no further rebleeds PLatelets better - off AC PLAN: Supportive care I feel it is ok to restart some form of DVT prophy as pt vented, bed ridden. PLatelets have normalized NO further rebleeds Start lovenox SQ Dw [employer] LAbs in AM Vitals Vitals Vital Signs Date Time Temp Pulse Resp B/P (MAP) Pulse Ox O2 Delivery O2 Flow Rate FiO2 11/30/16 10:00 66 28 100 C-PAP trial 11/30/16 08:00 100.1 100.1 Physical Exam Physical Exam intubated ,sedated General: Cooperative, No acute distress Heart: Regular rate, Normal S1, Normal S2 Lungs: Crackles Abdomen: Soft, Other (G tube in place) Extremities: No clubbing, No cyanosis Skin: No rashes, No breakdown Labs LABS Laboratory Tests Test 11/30/16 06:40 11/30/16 07:45 Glucose (Fingerstick) 118 mg/dL (70-99) O2 Saturation 97 % (92-99) Arterial Blood pH 7.48 (7.35-7.45) Arterial Blood pCO2 at Patient Temp 32 mmHg (35-46) Arterial Blood pO2 at Patient Temp 95 mmHg (65-108) Arterial Blood HCO3 23 mmol/L (21-28) Arterial Blood Base Excess 0 mmol/L (-3-3) FiO2 35 Review of Systems Review of Systems intubated, sedated Assessment and Plan Assessmemt and Plan Problems Medical Problems: (1) Upper GI bleeding Status: Acute Problems: Comment Review of Relevant I have reviewed the following items cordell (where applicable) has been applied. Labs Laboratory Tests Test 11/29/16 06:00 11/29/16 08:00 11/30/16 06:40 11/30/16 07:45 White Blood Count 11.7 x10^3/uL (4.0-11.0) Red Blood Count 3.00 x10^6/uL (4.30-5.70) Hemoglobin 9.9 g/dL (13.0-17.5) Hematocrit 29.0 % (39.0-53.0) Mean Corpuscular Volume 97 fL (79-100) Mean Corpuscular Hemoglobin 33 pg (25-35) Mean Corpuscular Hemoglobin Concent 34 g/dL (31-37) Red Cell Distribution Width 14.0 % (11.5-14.5) Platelet Count 195 x10^3/uL (140-400) Neutrophils (%) (Auto) 81 % (31-73) Lymphocytes (%) (Auto) 6 % (24-48) Monocytes (%) (Auto) 11 % (0-9) Eosinophils (%) (Auto) 2 % (0-3) Basophils (%) (Auto) 0 % (0-3) Neutrophils # (Auto) 9.5 x10^3uL (1.8-7.7) Lymphocytes # (Auto) 0.7 x10^3/uL (1.0-4.8) Monocytes # (Auto) 1.3 x10^3/uL (0.0-1.1) Eosinophils # (Auto) 0.2 x10^3/uL (0.0-0.7) Basophils # (Auto) 0.0 x10^3/uL (0.0-0.2) Sodium Level 139 mmol/L (136-145) Potassium Level 4.1 mmol/L (3.5-5.1) Chloride Level 106 mmol/L (98-107) Carbon Dioxide Level 28 mmol/L (21-32) Anion Gap 5 (6-14) Blood Urea Nitrogen 19 mg/dL (8-26) Creatinine 0.7 mg/dL (0.7-1.3) Estimated GFR (Cockcroft-Gault) 107.2 BUN/Creatinine Ratio 27 (6-20) Glucose Level 120 mg/dL (70-99) Calcium Level 9.2 mg/dL (8.5-10.1) Phosphorus Level 3.0 mg/dL (2.6-4.7) Magnesium Level 2.2 mg/dL (1.8-2.4) Total Bilirubin 1.1 mg/dL (0.2-1.0) Aspartate Amino Transf (AST/SGOT) 58 U/L (15-37) Alanine Aminotransferase (ALT/SGPT) 67 U/L (16-63) Alkaline Phosphatase 147 U/L (46-116) Total Protein 5.2 g/dL (6.4-8.2) Albumin 1.4 g/dL (3.4-5.0) Albumin/Globulin Ratio 0.4 (1.0-1.7) O2 Saturation 96 % (92-99) 97 % (92-99) Arterial Blood pH 7.47 (7.35-7.45) 7.48 (7.35-7.45) Arterial Blood pCO2 at Patient Temp 34 mmHg (35-46) 32 mmHg (35-46) Arterial Blood pO2 at Patient Temp 84 mmHg (65-108) 95 mmHg (65-108) Arterial Blood HCO3 24 mmol/L (21-28) 23 mmol/L (21-28) Arterial Blood Base Excess 1 mmol/L (-3-3) 0 mmol/L (-3-3) FiO2 35 35 Glucose (Fingerstick) 118 mg/dL (70-99) Laboratory Tests Test 11/30/16 06:40 11/30/16 07:45 Glucose (Fingerstick) 118 mg/dL (70-99) O2 Saturation 97 % (92-99) Arterial Blood pH 7.48 (7.35-7.45) Arterial Blood pCO2 at Patient Temp 32 mmHg (35-46) Arterial Blood pO2 at Patient Temp 95 mmHg (65-108) Arterial Blood HCO3 23 mmol/L (21-28) Arterial Blood Base Excess 0 mmol/L (-3-3) FiO2 35 Microbiology 11/25/16 Blood Culture - Final, Complete NO GROWTH AFTER 5 DAYS 11/24/16 Gram Stain - Final, Complete 11/19/16 Urine Culture - Final, Complete 11/19/16 Urine Culture Result 1 ([facility]) - Final, Complete Medications Current Medications Sodium Chloride 1,000 ml @ 1,000 mls/hr 1X ONCE IV Last administered on 20:55; Start 11/19/16 at 20:45; Stop 11/19/16 at 21:44; Status DC Famotidine (Pepcid) 40 mg 1X ONCE IVP Last administered on 11/19/16 21:54; Start 11/19/16 at 21:30; Stop 11/19/16 at 21:31; Status DC Ondansetron HCl (Zofran) 4 mg PRN Q8HRS PRN IV NAUSEA/VOMITING Last administered on 11/19/16 21:54; Start 11/19/16 at 21:45; Stop 11/20/16 at 10:44 ; Status DC Morphine Sulfate 2 mg PRN Q2HR PRN IV PAIN; Start 11/19/16 at 21:45; Stop 11/20 at 21:44; Status DC Sodium Chloride 1,000 ml @ 110 mls/hr Q9H6M IV Last administered on 11/20/16 17:53; Start 11/19/16 at 21:41; Stop 11/20/16 at 21:40; Status DC Ondansetron HCl (Zofran) 4 mg PRN Q6HRS PRN IV NAUSEA/VOMITING; Start 11/20/16 at 10:42; Stop 11/21/16 at 10:41; Status DC Famotidine (Pepcid) 20 mg BID IVP Last administered on 11/30/16 09:26; Start 11/20/16 at 11:00 Atorvastatin Calcium (Lipitor) 10 mg QHS PO Last administered on 11/29/16 21: 02; Start 11/20/16 at 21:00 Dutasteride (Avodart) 0.5 mg DAILY PO ; Start 11/20/16 at 11:00 Labetalol HCl (Normodyne) 10 mg PRN Q2HR PRN IVP HYPERTENSION, SEE COMMENTS; Start 11/20/16 at 10:45 Acetaminophen (Tylenol) 500 mg PRN Q6HRS PRN PO MILD PAIN / TEMP; Start at 10:45 Ondansetron HCl (Zofran) 4 mg PRN Q6HRS PRN IV NAUSEA/VOMITING; Start 11/21/16 at 07:00; Stop 11/22/16 at 06:59; Status DC Fentanyl Citrate (Fentanyl 2ml Vial) 25 mcg PRN Q5MIN PRN IV MILD PAIN; Start 11/21/16 at 07:00; Stop 11/22/16 at 06:59; Status DC Fentanyl Citrate (Fentanyl 2ml Vial) 50 mcg PRN Q5MIN PRN IV MODERATE PAIN; Start 11/21/16 at 07:00; Stop 11/22/16 at 06:59; Status DC Morphine Sulfate 1 mg PRN Q10MIN PRN IV SEVERE PAIN; Start 11/21/16 at 07:00; Stop 11/22/16 at 06:59; Status DC Ringer's Solution 1,000 ml @ 30 mls/hr Q24H IV ; Start 11/21/16 at 07:00; Stop 11/21/16 at 18:59; Status DC Lidocaine HCl 2 ml PRN 1X PRN ID PRIOR TO IV START; Start 11/21/16 at 07:00; Stop 11/22/16 at 06:59; Status DC Hydromorphone HCl (Dilaudid) 0.5 mg PRN Q10MIN PRN IV SEV PAIN, Second choice; Start 11/21/16 at 07:00; Stop 11/22/16 at 06:59; Status DC Prochlorperazine Edisylate (Compazine) 5 mg PACU PRN PRN IV NAUSEA, MRX1; Start 11/21/16 at 07:00; Stop 11/22/16 at 06:59; Status DC Hydralazine HCl (Apresoline) 10 mg PRN Q4HRS PRN IVP ELEVATED BP, SEE COMMENTS ; Start 11/20/16 at 15:30 Propofol 20 ml @ As Directed STK-MED ONCE IV ; Start 11/21/16 at 07:20; Stop at 07:21; Status DC Lidocaine HCl (Lidocaine Pf 2% Vial) 5 ml STK-MED ONCE .ROUTE ; Start 11/21/16 at 07:20; Stop 11/21/16 at 07:21; Status DC Ondansetron HCl (Zofran) 4 mg STK-MED ONCE .ROUTE ; Start 11/21/16 at 07:20; Stop 11/21/16 at 07:21; Status DC Dexamethasone Sodium Phosphate (Decadron) 20 mg STK-MED ONCE .ROUTE ; Start at 07:20; Stop 11/21/16 at 07:21; Status DC Phenylephrine HCl 1 mg STK-MED ONCE IV ; Start 11/21/16 at 07:21; Stop 11/21/16 at 07:22; Status DC Ephedrine Sulfate 50 mg STK-MED ONCE IV ; Start 11/21/16 at 07:21; Stop at 07:22; Status DC Fentanyl Citrate (Fentanyl 5ml Vial) 250 mcg STK-MED ONCE .ROUTE ; Start at 07:21; Stop 11/21/16 at 07:22; Status DC Rocuronium Nardin (Zemuron) 50 mg STK-MED ONCE .ROUTE ; Start 11/21/16 at 07:22 ; Stop 11/21/16 at 07:23; Status DC Famotidine (Pepcid) 20 mg STK-MED ONCE .ROUTE ; Start 11/21/16 at 07:23; Stop at 07:24; Status DC Cellulose 1 each STK-MED ONCE .ROUTE Last administered on 11/21/16 10:29; Start 11/21/16 at 07:33; Stop 11/21/16 at 07:34; Status DC Bupivacaine HCl/ Epinephrine Bitart (Marcaine-Epi 0.5%-[id number]) 50 ml STK-MED ONCE .ROUTE Last administered on 11/21/16 08:43; Start 11/21/16 at 07:34; Stop 11/21/16 at 07:35; Status DC Cefazolin Sodium/ Dextrose 50 ml @ 100 mls/hr 1X PREOP ONCE IV Last administered on 11/21/16 08:25; Start 11/21/16 at 07:37; Stop 11/21/16 at 08:06 ; Status DC Succinylcholine Chloride (Anectine) 200 mg STK-MED ONCE .ROUTE ; Start 11/21/16 at 07:59; Stop 11/21/16 at 08:00; Status DC Sevoflurane (Ultane) 90 ml STK-MED ONCE IH ; Start 11/21/16 at 09:24; Stop 11/21 at 09:25; Status DC Rocuronium Nardin (Zemuron) 50 mg STK-MED ONCE .ROUTE ; Start 11/21/16 at 09:25 ; Stop 11/21/16 at 09:26; Status DC Cellulose 1 each STK-MED ONCE .ROUTE ; Start 11/21/16 at 10:11; Stop 11/21/16 at 10:12; Status DC Sodium Bicarbonate 50 meq STK-MED ONCE .ROUTE ; Start 11/21/16 at 10:34; Stop at 10:35; Status DC Rocuronium Nardin (Zemuron) 50 mg STK-MED ONCE .ROUTE ; Start 11/21/16 at 11:00 ; Stop 11/21/16 at 11:01; Status DC Sevoflurane (Ultane) 90 ml STK-MED ONCE IH ; Start 11/21/16 at 12:46; Stop 11/21 at 12:47; Status DC Piperacillin Sod/ Tazobactam Sod 3.375 gm/Sodium Chloride 50 ml @ 100 mls/hr Q6HRS IV Last administered on 11/26/16 11:40; Start 11/21/16 at 14:00; Stop at 14:43; Status DC Fentanyl Citrate (Fentanyl 2ml Vial) 25 mcg PRN Q2HR PRN IV PAIN Last administered on 11/24/16 02:49; Start 11/21/16 at 13:30; Stop 11/25/16 at 12:11 ; Status DC Fentanyl Citrate (Fentanyl 2ml Vial) 50 mcg PRN Q2HR PRN IV PAIN Last administered on 11/23/16 09:50; Start 11/21/16 at 13:30; Stop 11/25/16 at 12:11 ; Status DC Propofol 100 ml @ 0 mls/hr CONT PRN IV PER PROTOCOL Last administered on 03:36; Start 11/21/16 at 13:30 Fentanyl Citrate (Fentanyl 2ml Vial) 25 mcg PRN Q1HR PRN IV COMM Last administered on 11/27/16 06:03; Start 11/21/16 at 13:30 Fentanyl Citrate (Fentanyl 2ml Vial) 50 mcg PRN Q1HR PRN IV COMM Last administered on 11/26/16 23:08; Start 11/21/16 at 13:30 Chlorhexidine Gluconate (Peridex) 15 ml BID MM Last administered on 11/30/16 09:26; Start 11/21/16 at 21:00 Potassium Chloride/Dextrose/ Sod Cl 1,000 ml @ 100 mls/hr Q10H IV Last administered on 11/25/16 08:55; Start 11/21/16 at 15:00; Stop 11/25/16 at 21:59 ; Status DC Albuterol/ Ipratropium (Duoneb) 3 ml RTQID NEB Last administered on 11/30/16 07:48; Start 11/23/16 at 16:00 Amino Acids/ Glycerin/ Electrolytes 1,000 ml @ 80 mls/hr [id number] IV ; Start at 16:15; Stop 11/23/16 at 18:21; Status DC Amino Acids/ Glycerin/ Electrolytes 1,000 ml @ 80 mls/hr [id number] IV Last administered on 11/24/16 08:00; Start 11/23/16 at 21:00; Stop 11/24/16 at 13:45 ; Status DC Amino Acids/ Glycerin/ Electrolytes 1,000 ml @ 80 mls/hr [id number] IV Last administered on 11/25/16 08:22; Start 11/25/16 at 08:00; Stop 11/25/16 at 21:59 ; Status DC Linezolid 300 ml @ 300 mls/hr Q12HR IV Last administered on 11/28/16 09:12; Start 11/25/16 at 10:00; Stop 11/28/16 at 12:42; Status DC Info 1 each PRN DAILY PRN MC SEE COMMENTS Last administered on 11/29/16 12:42 ; Start 11/25/16 at 11:15 Sodium Acetate 90 meq/Potassium Chloride 50 meq/ Potassium Phosphate 13.6 mmol/ Magnesium Sulfate 10 meq/ Calcium Gluconate 10 meq/ Multivitamins 10 ml/Chromium / Copper/Manganese/ Seleni/Zn 1 ml/ Total Parenteral Nutrition/Amino Acids/ Dextrose 1,512 ml @ 63 mls/hr TPN CONT IV Last administered on 11/25/16 22: 04; Start 11/25/16 at 22:00; Stop 11/26/16 at 21:59; Status DC Sodium Chloride 45 meq/Sodium Acetate 45 meq/ Potassium Chloride 50 meq/ Potassium Phosphate 17 mmol/ Magnesium Sulfate 16 meq/Calcium Gluconate 14 meq/ Multivitamins 10 ml/Chromium/ Copper/Manganese/ Seleni/Zn 1 ml/ Total Parenteral Nutrition/Amino Acids/Dextrose 1,512 ml @ 63 mls/hr TPN CONT IV Last administered on 11/26/16 21:01; Start 11/26/16 at 22:00; Stop 11/27/16 at 21:59; Status DC Potassium Phosphate 10 mmol/ Sodium Chloride 103.3333 ml @ 51.667 m... Q2H IV Last administered on 11/26/16 14:54; Start 11/26/16 at 13:30; Stop 11/26/16 at 17:29; Status DC Meropenem 500 mg/ Sodium Chloride 50 ml @ 100 mls/hr Q8HRS IV Last administered on 11/30/16 05:08; Start 11/26/16 at 15:00 Potassium Chloride/Dextrose/ Sod Cl 1,000 ml @ 37 mls/hr Q24H IV Last administered on 11/29/16 21:02; Start 11/26/16 at 20:00 Sodium Chloride 45 meq/Sodium Acetate 45 meq/ Potassium Chloride 50 meq/ Potassium Phosphate 17 mmol/ Magnesium Sulfate 12 meq/Calcium Gluconate 12 meq/ Multivitamins 10 ml/Chromium/ Copper/Manganese/ Seleni/Zn 1 ml/ Total Parenteral Nutrition/Amino Acids/Dextrose/ Fat Emulsion Intravenous 1,512 ml @ 63 mls/hr TPN CONT IV Last administered on 11/27/16 22:11; Start 11/27/16 at 22:00; Stop 11/28/16 at 21:59; Status DC Sodium Chloride 45 meq/Sodium Acetate 45 meq/ Potassium Chloride 50 meq/ Potassium Phosphate 17 mmol/ Magnesium Sulfate 12 meq/Calcium Gluconate 10 meq/ Multivitamins 10 ml/Chromium/ Copper/Manganese/ Seleni/Zn 1 ml/ Total Parenteral Nutrition/Amino Acids/Dextrose 1,512 ml @ 63 mls/hr TPN CONT IV Last administered on 11/28/16 21:35; Start 11/28/16 at 22:00; Stop 11/29/16 at 21:59; Status DC Sodium Chloride 45 meq/Sodium Acetate 45 meq/ Potassium Chloride 50 meq/ Potassium Phosphate 17 mmol/ Magnesium Sulfate 12 meq/ Multivitamins 10 ml/ Chromium/ Copper/Manganese/ Seleni/Zn 1 ml/ Total Parenteral Nutrition/Amino Acids/Dextrose 1,512 ml @ 63 mls/hr TPN CONT IV Last administered on 23:23; Start 11/29/16 at 22:00; Stop 11/30/16 at 21:59 Enoxaparin Sodium (Lovenox 40mg Syringe) 40 mg Q24H SQ Last administered on 09:39; Start 11/30/16 at 10:00 Active Scripts Active Reported Aspir 81 (Aspirin) 81 Mg Tablet.dr 81 Mg PO DAILY Atorvastatin Calcium 10 Mg Tablet 1 Tab PO DAILY Aspirin 81 Mg Tab.chew 1 Tab PO DAILY Avodart (Dutasteride) 0.5 Mg Capsule 1 Cap PO DAILY Vitals/I & O Vital Sign - Last 24 Hours 11/29/16 11/29/16 11/29/16 11/29/16 11:00 11:21 12:00 12:00 Temp 99.8 99.8 Pulse 60 60 Resp 22 22 B/P (MAP) 140/65 (90) 139/75 (96) Pulse Ox 99 100 99 O2 Delivery Ventilator Ventilator Mechanical Ventilator Ventilator 11/29/16 11/29/16 11/29/16 11/29/16 13:00 13:27 14:00 15:00 Pulse 60 66 64 Resp 22 22 22 B/P (MAP) 113/59 (77) 112/59 (76) 100/57 (71) Pulse Ox 99 100 99 99 O2 Delivery Ventilator Ventilator Ventilator Ventilator 11/29/16 11/29/16 11/29/16 11/29/16 15:39 16:00 16:00 17:00 Pulse 60 72 Resp 22 22 B/P (MAP) 147/62 (90) 126/53 (77) Pulse Ox 99 99 99 O2 Delivery Ventilator Mechanical Ventilator Ventilator Ventilator 11/29/16 11/29/16 11/29/16 11/29/16 17:35 18:00 19:00 19:57 Temp 100.1 100.1 Pulse 72 68 Resp 22 20 B/P (MAP) 116/82 (93) 132/64 (86) Pulse Ox 99 99 100 100 O2 Delivery Ventilator Ventilator Ventilator Ventilator 11/29/16 11/29/16 11/29/16 11/29/16 20:00 20:00 21:00 22:00 Pulse 62 60 62 Resp 20 22 26 B/P (MAP) 136/75 (95) 117/68 (84) 140/69 (92) Pulse Ox 100 100 100 O2 Delivery Mechanical Ventilator Ventilator Ventilator Ventilator 11/29/16 11/29/16 11/30/16 11/30/16 23:00 23:19 00:00 00:00 Temp 99.5 99.5 Pulse 60 60 Resp 20 24 B/P (MAP) 132/62 (85) 111/64 (80) Pulse Ox 100 100 100 O2 Delivery Ventilator Ventilator Ventilator Mechanical Ventilator 11/30/16 11/30/16 11/30/16 11/30/16 01:00 01:22 02:00 03:00 Temp 100.4 100.4 Pulse 60 60 60 Resp 23 18 20 B/P (MAP) 100/53 (69) 95/46 (62) 105/53 (70) Pulse Ox 100 100 100 100 O2 Delivery Ventilator Ventilator Ventilator Ventilator 11/30/16 11/30/16 11/30/16 11/30/16 03:25 04:00 04:00 05:00 Pulse 60 60 Resp 21 28 B/P (MAP) 105/62 (76) 154/74 (100) Pulse Ox 100 100 100 O2 Delivery Ventilator Mechanical Ventilator Ventilator Ventilator 11/30/16 11/30/16 11/30/16 11/30/16 05:36 06:18 07:00 07:49 Temp 99.8 99.8 Pulse 60 62 Resp 20 23 B/P (MAP) 140/72 (94) 121/61 (81) Pulse Ox 100 100 100 100 O2 Delivery Ventilator Ventilator Ventilator Ventilator 11/30/16 11/30/16 11/30/16 11/30/16 08:00 08:00 09:00 10:00 Temp 100.1 100.1 Pulse 60 72 66 Resp 27 28 B/P (MAP) 128/63 (84) 136/72 (93) Pulse Ox 100 100 100 O2 Delivery Mechanical Ventilator Ventilator C-PAP trial C-PAP trial Intake and Output 11/29/16 11/29/16 11/30/16 15:00 23:00 07:00 Intake Total 895.56 ml Output Total 800 ml 1730 ml 1085 ml Balance -800 ml -1730 ml -189.44 ml HENRIK YORK MD Nov 30, 2016 10:18
[2016-11-30 10:31] LABS: HCO3 ABG 21 mmol/L (21-28); PCO2 ABG 29 mmHg (35-46); PH ABG 7.49 (7.35-7.45); PO2 ABG 95 mmHg (65-108); SAT O2 ABG 96 % (92-99)
--- NOTE | 2016-11-30 10:45 | PDOC ---
Objective: Objective: Seen earlier today. Per RN - off sedation on CPAP. Vital Signs: Vital Signs Date Time Temp Pulse Resp B/P (MAP) Pulse Ox O2 Delivery O2 Flow Rate FiO2 11/30/16 10:00 66 28 100 C-PAP trial 11/30/16 08:00 100.1 100.1 Labs: Laboratory Tests Test 11/30/16 06:40 11/30/16 07:45 Glucose (Fingerstick) 118 mg/dL O2 Saturation 97 % Arterial Blood pH 7.48 Arterial Blood pCO2 at Patient Temp 32 mmHg Arterial Blood pO2 at Patient Temp 95 mmHg Arterial Blood HCO3 23 mmol/L Arterial Blood Base Excess 0 mmol/L FiO2 35 PE: GEN: intubated ABD: BS+, soft NEURO/PSYCH: eyes open A/P: S/p gastropexy/sleeve resection Resp failure Elevated LFTs -- Continue per pulm. ANGELA SCHNEIDER Nov 30, 2016 10:45
--- NOTE | 2016-11-30 10:57 | PDOC ---
PULMONARY PROGRESS NOTES Subjective PT APPEARS MORE AWAKE cpap trial, rr in 30s APPEARS TO FOLLOW some COMMANDS Vitals Vital Signs Date Time Temp Pulse Resp B/P (MAP) Pulse Ox O2 Delivery O2 Flow Rate FiO2 11/30/16 10:00 66 28 100 C-PAP trial 11/30/16 08:00 100.1 100.1 Comments ros discussed w rn, as mentioned as above other sys otherwise neg HEENT: Other (nc at perrl, orally intubated, nose clear, neck, no thyromegaly, no lap) Lungs: Crackles Cardiovascular: S1, S2 Abdomen: Soft, Non-tender, Other (no mass) Extremities: No Edema Skin: Warm Labs Laboratory Tests Test 11/29/16 06:00 11/29/16 08:00 11/30/16 06:40 11/30/16 07:45 White Blood Count 11.7 x10^3/uL (4.0-11.0) Red Blood Count 3.00 x10^6/uL (4.30-5.70) Hemoglobin 9.9 g/dL (13.0-17.5) Hematocrit 29.0 % (39.0-53.0) Mean Corpuscular Volume 97 fL (79-100) Mean Corpuscular Hemoglobin 33 pg (25-35) Mean Corpuscular Hemoglobin Concent 34 g/dL (31-37) Red Cell Distribution Width 14.0 % (11.5-14.5) Platelet Count 195 x10^3/uL (140-400) Neutrophils (%) (Auto) 81 % (31-73) Lymphocytes (%) (Auto) 6 % (24-48) Monocytes (%) (Auto) 11 % (0-9) Eosinophils (%) (Auto) 2 % (0-3) Basophils (%) (Auto) 0 % (0-3) Neutrophils # (Auto) 9.5 x10^3uL (1.8-7.7) Lymphocytes # (Auto) 0.7 x10^3/uL (1.0-4.8) Monocytes # (Auto) 1.3 x10^3/uL (0.0-1.1) Eosinophils # (Auto) 0.2 x10^3/uL (0.0-0.7) Basophils # (Auto) 0.0 x10^3/uL (0.0-0.2) Sodium Level 139 mmol/L (136-145) Potassium Level 4.1 mmol/L (3.5-5.1) Chloride Level 106 mmol/L (98-107) Carbon Dioxide Level 28 mmol/L (21-32) Anion Gap 5 (6-14) Blood Urea Nitrogen 19 mg/dL (8-26) Creatinine 0.7 mg/dL (0.7-1.3) Estimated GFR (Cockcroft-Gault) 107.2 BUN/Creatinine Ratio 27 (6-20) Glucose Level 120 mg/dL (70-99) Calcium Level 9.2 mg/dL (8.5-10.1) Phosphorus Level 3.0 mg/dL (2.6-4.7) Magnesium Level 2.2 mg/dL (1.8-2.4) Total Bilirubin 1.1 mg/dL (0.2-1.0) Aspartate Amino Transf (AST/SGOT) 58 U/L (15-37) Alanine Aminotransferase (ALT/SGPT) 67 U/L (16-63) Alkaline Phosphatase 147 U/L (46-116) Total Protein 5.2 g/dL (6.4-8.2) Albumin 1.4 g/dL (3.4-5.0) Albumin/Globulin Ratio 0.4 (1.0-1.7) O2 Saturation 96 % (92-99) 97 % (92-99) Arterial Blood pH 7.47 (7.35-7.45) 7.48 (7.35-7.45) Arterial Blood pCO2 at Patient Temp 34 mmHg (35-46) 32 mmHg (35-46) Arterial Blood pO2 at Patient Temp 84 mmHg (65-108) 95 mmHg (65-108) Arterial Blood HCO3 24 mmol/L (21-28) 23 mmol/L (21-28) Arterial Blood Base Excess 1 mmol/L (-3-3) 0 mmol/L (-3-3) FiO2 35 35 Glucose (Fingerstick) 118 mg/dL (70-99) Laboratory Tests Test 11/30/16 06:40 11/30/16 07:45 Glucose (Fingerstick) 118 mg/dL (70-99) O2 Saturation 97 % (92-99) Arterial Blood pH 7.48 (7.35-7.45) Arterial Blood pCO2 at Patient Temp 32 mmHg (35-46) Arterial Blood pO2 at Patient Temp 95 mmHg (65-108) Arterial Blood HCO3 23 mmol/L (21-28) Arterial Blood Base Excess 0 mmol/L (-3-3) FiO2 35 Medications Active Scripts Medications Dose Route/Sig Max Daily Dose Days Date Category Aspir 81 (Aspirin) 81 Mg Tablet.dr 81 Mg PO DAILY 06/08/14 Reported Atorvastatin Calcium 10 Mg Tablet 1 Tab PO DAILY 03/10/14 Reported Aspirin 81 Mg Tab.chew 1 Tab PO DAILY 01/29/14 Reported Avodart (Dutasteride) 0.5 Mg Capsule 1 Cap PO DAILY 01/29/14 Reported Comments CXR 11/28 1. Stable tube positions. 2. Unchanged moderate patchy bilateral pulmonary infiltrates again suggesting pulmonary edema and/or pneumonia. 3. Increasing small bilateral pleural effusions Impression . ACUTE RESP FAILURE MULTIFACTORIAL ASPIRATION PNEUMONIA S/P SEE OP NOTE Laparoscopic repair of large paraesophageal hernia, MELENA ARF ABNL CXR POSSIBLE EDEMA AND PNEUMONIA MALNUTRITION DEMENTIA Plan . cont vent support, vent setting reviewed, sbt, rr in 30s not ready for extubation no trach PT HAD A POOR QUALITY OF LIFE PRIOR TO SURGERY WILL CONSULT PALLIATIVE CARE BROCH 11/04, BAL NEGATIVE keep I<O ANTIBX BRONCHODILATORS discussed w rn, rt, discussed w in details, her daughter is coming today, they may decide to extubate and not reintubate, support were given MARINO SHEIKH MD Nov 30, 2016 10:57
--- NOTE | 2016-11-30 12:25 | PDOC ---
SURGICAL PROGRESS NOTE Subjective off sedation opens eyes TF going Vital Signs Vital Signs Date Time Temp Pulse Resp B/P (MAP) Pulse Ox O2 Delivery O2 Flow Rate FiO2 11/30/16 12:00 Mechanical Ventilator 11/30/16 10:00 66 28 100 11/30/16 08:00 100.1 100.1 I&O Intake and Output 11/30/16 07:00 Intake Total 895.56 ml Output Total 3615 ml Balance -2719.44 ml IV Total 772.56 ml Tube Feeding 123 ml Output Urine Total 3540 ml Drainage Total 75 ml General: No acute distress Abdomen: Soft, Other (g tube in place, incision c/d/i, no erythema ) Labs Laboratory Tests Test 11/29/16 06:00 11/29/16 08:00 11/30/16 06:40 11/30/16 07:45 White Blood Count 11.7 x10^3/uL (4.0-11.0) Red Blood Count 3.00 x10^6/uL (4.30-5.70) Hemoglobin 9.9 g/dL (13.0-17.5) Hematocrit 29.0 % (39.0-53.0) Mean Corpuscular Volume 97 fL (79-100) Mean Corpuscular Hemoglobin 33 pg (25-35) Mean Corpuscular Hemoglobin Concent 34 g/dL (31-37) Red Cell Distribution Width 14.0 % (11.5-14.5) Platelet Count 195 x10^3/uL (140-400) Neutrophils (%) (Auto) 81 % (31-73) Lymphocytes (%) (Auto) 6 % (24-48) Monocytes (%) (Auto) 11 % (0-9) Eosinophils (%) (Auto) 2 % (0-3) Basophils (%) (Auto) 0 % (0-3) Neutrophils # (Auto) 9.5 x10^3uL (1.8-7.7) Lymphocytes # (Auto) 0.7 x10^3/uL (1.0-4.8) Monocytes # (Auto) 1.3 x10^3/uL (0.0-1.1) Eosinophils # (Auto) 0.2 x10^3/uL (0.0-0.7) Basophils # (Auto) 0.0 x10^3/uL (0.0-0.2) Sodium Level 139 mmol/L (136-145) Potassium Level 4.1 mmol/L (3.5-5.1) Chloride Level 106 mmol/L (98-107) Carbon Dioxide Level 28 mmol/L (21-32) Anion Gap 5 (6-14) Blood Urea Nitrogen 19 mg/dL (8-26) Creatinine 0.7 mg/dL (0.7-1.3) Estimated GFR (Cockcroft-Gault) 107.2 BUN/Creatinine Ratio 27 (6-20) Glucose Level 120 mg/dL (70-99) Calcium Level 9.2 mg/dL (8.5-10.1) Phosphorus Level 3.0 mg/dL (2.6-4.7) Magnesium Level 2.2 mg/dL (1.8-2.4) Total Bilirubin 1.1 mg/dL (0.2-1.0) Aspartate Amino Transf (AST/SGOT) 58 U/L (15-37) Alanine Aminotransferase (ALT/SGPT) 67 U/L (16-63) Alkaline Phosphatase 147 U/L (46-116) Total Protein 5.2 g/dL (6.4-8.2) Albumin 1.4 g/dL (3.4-5.0) Albumin/Globulin Ratio 0.4 (1.0-1.7) O2 Saturation 96 % (92-99) 97 % (92-99) Arterial Blood pH 7.47 (7.35-7.45) 7.48 (7.35-7.45) Arterial Blood pCO2 at Patient Temp 34 mmHg (35-46) 32 mmHg (35-46) Arterial Blood pO2 at Patient Temp 84 mmHg (65-108) 95 mmHg (65-108) Arterial Blood HCO3 24 mmol/L (21-28) 23 mmol/L (21-28) Arterial Blood Base Excess 1 mmol/L (-3-3) 0 mmol/L (-3-3) FiO2 35 35 Glucose (Fingerstick) 118 mg/dL (70-99) Laboratory Tests Test 11/30/16 06:40 11/30/16 07:45 Glucose (Fingerstick) 118 mg/dL (70-99) O2 Saturation 97 % (92-99) Arterial Blood pH 7.48 (7.35-7.45) Arterial Blood pCO2 at Patient Temp 32 mmHg (35-46) Arterial Blood pO2 at Patient Temp 95 mmHg (65-108) Arterial Blood HCO3 23 mmol/L (21-28) Arterial Blood Base Excess 0 mmol/L (-3-3) FiO2 35 Problem List Problems Medical Problems: (1) Upper GI bleeding Status: Acute Assessment/Plan s/p partial gastrectomy supportive care, no acute recs Problems: QIANA [employer]ON [employer] INS[employer] Nov 30, 2016 12:25
[2016-11-30] MEDS: TPN PER PHARMACY MC PRN (13:53)
--- NOTE | 2016-11-30 15:05 | PDOC2 ---
PALLIATIVE CARE Palliative Care Note Palliative Care Consult requested by Dr. Mann to address goals of care. Diagnosis: Respiratory Failure--Vent with weaning trials; Aspiration pneumonia ; Laparoscopic repair of large paraesophageal hernia; melena; ARF; malnutrition ; Dementia. Patient remains on vent. Responds to verbal stimuli by opening eyes. Spoke with /Jacquelin/ISIDRA. Patient has daughter Yani and son Atul. Daughter will arrive from [place] this evening. Son aware of illness --not involved in decisions. Copy of AD on record. Reviewed current medical condition with . Discussed goals of care. would like patient to a peaceful and natural . She does not want chest compressions or shock. When patient is extubated she does not want re-intubation. No tracheostomy. Prior to admission patient was able to feed himself, dress himself and ambulatory. Confused at times. Quality of Life has been declining per . 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 Always good at fixing things. " Now can't replace battery in hearing aid." Patient is a of [place] [employer]. Per plan is to extubate next week. Hospice was discussed. She would be in favor of this support. DNR. Do not re-intubate when extubated. No Tracheostomy. Will address feeding issues next week when daughter is here. Plan Meeting Saturday to continue discussion of plan of care. KAYLA VITAL Nov 30, 2016 15:05
[2016-11-30 16:50] LABS: FIO2 ABG 30
[2016-11-30] MEDS: POTASSIUM CL 20MEQ D5-0.45NACL 1,000 ML IV SCH (19:40)
[2016-11-30] MEDS: ATORVASTATIN CALCIUM 10 MG TABLET. PO SCH (21:26)
[2016-11-30] MEDS ORDERED: AMINO ACIDS IV SCH ×9 (22:00)
[2016-11-30] MEDS ORDERED: DEXTROSE 70% IV SCH ×9 (22:00)
[2016-11-30] MEDS ORDERED: TOTAL PARENTERAL NUTRITION IV SCH ×9 (22:00)
[2016-11-30] MEDS ORDERED: [UNRECOGNIZED DRUG - OTHER] IV SCH ×9 (22:00)
[2016-12-01] VITALS (24 sets, daily range): BP systolic 96–140; BP diastolic 51–81
[2016-12-01] MEDS: MEROPENEM 500 MG in IV NORMAL SALINE 50ML 50 ML IV SCH ×3 (05:59→21:09)
[2016-12-01] MEDS: IPRATRPIUM/ALBUTEROL 0.5/2.5MG 3 ML NEBU. NEB SCH ×4 (07:25→20:00)
--- NOTE | 2016-12-01 08:25 | PDOC ---
PULMONARY PROGRESS NOTES Subjective ON VENT NOT FOLLOWING MY COMMANDS MOD SECRETION Vitals Vital Signs Date Time Temp Pulse Resp B/P (MAP) Pulse Ox O2 Delivery O2 Flow Rate FiO2 12/01/16 07:26 100 Ventilator 12/01/16 06:00 62 27 96/56 (69) 12/01/16 04:00 99.5 99.5 Comments ros discussed w rn, as mentioned as above other sys otherwise neg HEENT: Other (nc at perrl, orally intubated, nose clear, neck, no thyromegaly, no lap) Lungs: Crackles Cardiovascular: S1, S2 Abdomen: Soft, Non-tender, Other (no mass) Extremities: No Edema Skin: Warm Labs Laboratory Tests Test 11/30/16 06:40 11/30/16 07:45 11/30/16 10:15 Glucose (Fingerstick) 118 mg/dL (70-99) O2 Saturation 97 % (92-99) 96 % (92-99) Arterial Blood pH 7.48 (7.35-7.45) 7.49 (7.35-7.45) Arterial Blood pCO2 at Patient Temp 32 mmHg (35-46) 29 mmHg (35-46) Arterial Blood pO2 at Patient Temp 95 mmHg (65-108) 95 mmHg (65-108) Arterial Blood HCO3 23 mmol/L (21-28) 21 mmol/L (21-28) Arterial Blood Base Excess 0 mmol/L (-3-3) -1 mmol/L (-3-3) FiO2 35 30 Laboratory Tests Test 11/30/16 10:15 O2 Saturation 96 % (92-99) Arterial Blood pH 7.49 (7.35-7.45) Arterial Blood pCO2 at Patient Temp 29 mmHg (35-46) Arterial Blood pO2 at Patient Temp 95 mmHg (65-108) Arterial Blood HCO3 21 mmol/L (21-28) Arterial Blood Base Excess -1 mmol/L (-3-3) FiO2 30 Medications Active Scripts Medications Dose Route/Sig Max Daily Dose Days Date Category Aspir 81 (Aspirin) 81 Mg Tablet.dr 81 Mg PO DAILY 06/08/14 Reported Atorvastatin Calcium 10 Mg Tablet 1 Tab PO DAILY 03/10/14 Reported Aspirin 81 Mg Tab.chew 1 Tab PO DAILY 01/29/14 Reported Avodart (Dutasteride) 0.5 Mg Capsule 1 Cap PO DAILY 01/29/14 Reported Comments CXR 11/28 1. Stable tube positions. 2. Unchanged moderate patchy bilateral pulmonary infiltrates again suggesting pulmonary edema and/or pneumonia. 3. Increasing small bilateral pleural effusions Impression . ACUTE RESP FAILURE MULTIFACTORIAL ASPIRATION PNEUMONIA S/P SEE OP NOTE Laparoscopic repair of large paraesophageal hernia, MELENA ARF ABNL CXR POSSIBLE EDEMA AND PNEUMONIA MALNUTRITION DEMENTIA Plan . cont vent support, vent setting reviewed, sbt, rr in 30s not ready for extubation no trach per family PT HAD A POOR QUALITY OF LIFE PRIOR TO SURGERY PALLIATIVE CARE consulted BROCH 11/04, BAL NEGATIVE keep I<O ANTIBX BRONCHODILATORS discussed w rn, rt, family may decide to extubate and not reintubate, MARINO SHEIKH MD Dec 01, 2016 08:25
[2016-12-01] MEDS: CHLORHEXIDINE 0.12% 15 ML MOUTHWASH. MM SCH ×2 (08:57→21:09)
[2016-12-01] MEDS: FAMOTIDINE 20 MG/2 ML VIAL IVP SCH ×2 (08:57→21:09)
[2016-12-01] MEDS: ENOXAPARIN 40 MG/0.4 ML SYRINGE. SQ SCH (08:58)
[2016-12-01] MEDS: DUTASTERIDE 0.5 MG CAPSULE PO SCH (09:00)
--- NOTE | 2016-12-01 09:14 | PDOC ---
PROGRESS NOTES Chief Complaint Chief Complaint hematemesis ASSESSMENT AND PLAN: 1. UGIB: s/p Laparoscopic repair of large paraesophageal hernia, open partial gastrectomy, placement of gastrostomy with gastropexy, nutrition as per general surgery. 2. Acute respiratory failure: On mechanical ventilation, possible aspiration. sputum cx + GNR. on zyvox and meropenum with ID 3. Leukocytosis 4. Arrhythmia: hx pacer placement 5. Prophylaxis: SCDs; 6. 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 7. HYPOPHOsphatemia: 8. DNR 9. OMARI 10. MOd pCM overall prognosis guarded History of Present Illness History of Present Illness Seen in ICU, intubated, sedated today NOn purposeful movements when off sedation yesterday NOisy BS Pulmo note reviewed, keep intubated or terminal extubation (no LTAC plans) NO trach plans as dw by pulmo (pt had very poor lifestyle/QOL prior to this ) Saturday event - palliative got involved, now DNR but family unable to decide re terminal extubation Hgb otherwise stable, no further rebleeds PLatelets better - started on lovenox 11/30 for DVT prophy TPN and tF at 55.cc both running PLAN: Supportive care DNR TErminal extubation has been introduced to family by critical care late last week - still undecided NO further rebleeds Current tPN to consume, no more to follow COnt TF to reach 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 Vitals Vitals Vital Signs Date Time Temp Pulse Resp B/P (MAP) Pulse Ox O2 Delivery O2 Flow Rate FiO2 12/01/16 08:30 100 Ventilator 12/01/16 06:00 62 27 96/56 (69) 12/01/16 04:00 99.5 99.5 Physical Exam Physical Exam intubated ,sedated General: No acute distress Heart: Regular rate, Normal S1, Normal S2 Lungs: Crackles Abdomen: Soft, Other (g tube in place, incision c/d/i, no erythema ) Extremities: No clubbing, No cyanosis Skin: No rashes, No breakdown Labs LABS Laboratory Tests Test 11/30/16 10:15 O2 Saturation 96 % (92-99) Arterial Blood pH 7.49 (7.35-7.45) Arterial Blood pCO2 at Patient Temp 29 mmHg (35-46) Arterial Blood pO2 at Patient Temp 95 mmHg (65-108) Arterial Blood HCO3 21 mmol/L (21-28) Arterial Blood Base Excess -1 mmol/L (-3-3) FiO2 30 Review of Systems Review of Systems intubated, sedated Assessment and Plan Assessmemt and Plan Problems Medical Problems: (1) Upper GI bleeding Status: Acute Problems: Comment Review of Relevant I have reviewed the following items cordell (where applicable) has been applied. Labs Laboratory Tests Test 11/30/16 06:40 11/30/16 07:45 11/30/16 10:15 Glucose (Fingerstick) 118 mg/dL (70-99) O2 Saturation 97 % (92-99) 96 % (92-99) Arterial Blood pH 7.48 (7.35-7.45) 7.49 (7.35-7.45) Arterial Blood pCO2 at Patient Temp 32 mmHg (35-46) 29 mmHg (35-46) Arterial Blood pO2 at Patient Temp 95 mmHg (65-108) 95 mmHg (65-108) Arterial Blood HCO3 23 mmol/L (21-28) 21 mmol/L (21-28) Arterial Blood Base Excess 0 mmol/L (-3-3) -1 mmol/L (-3-3) FiO2 35 30 Laboratory Tests Test 11/30/16 10:15 O2 Saturation 96 % (92-99) Arterial Blood pH 7.49 (7.35-7.45) Arterial Blood pCO2 at Patient Temp 29 mmHg (35-46) Arterial Blood pO2 at Patient Temp 95 mmHg (65-108) Arterial Blood HCO3 21 mmol/L (21-28) Arterial Blood Base Excess -1 mmol/L (-3-3) FiO2 30 Microbiology 11/25/16 Blood Culture - Final, Complete NO GROWTH AFTER 5 DAYS 11/24/16 Gram Stain - Final, Complete 11/19/16 Urine Culture - Final, Complete 11/19/16 Urine Culture Result 1 (CHAVA) - Final, Complete Medications Current Medications Sodium Chloride 1,000 ml @ 1,000 mls/hr 1X ONCE IV Last administered on 20:55; Start 11/19/16 at 20:45; Stop 11/19/16 at 21:44; Status DC Famotidine (Pepcid) 40 mg 1X ONCE IVP Last administered on 11/19/16 21:54; Start 11/19/16 at 21:30; Stop 11/19/16 at 21:31; Status DC Ondansetron HCl (Zofran) 4 mg PRN Q8HRS PRN IV NAUSEA/VOMITING Last administered on 11/19/16 21:54; Start 11/19/16 at 21:45; Stop 11/20/16 at 10:44 ; Status DC Morphine Sulfate 2 mg PRN Q2HR PRN IV PAIN; Start 11/19/16 at 21:45; Stop 11/20 at 21:44; Status DC Sodium Chloride 1,000 ml @ 110 mls/hr Q9H6M IV Last administered on 11/20/16 17:53; Start 11/19/16 at 21:41; Stop 11/20/16 at 21:40; Status DC Ondansetron HCl (Zofran) 4 mg PRN Q6HRS PRN IV NAUSEA/VOMITING; Start 11/20/16 at 10:42; Stop 11/21/16 at 10:41; Status DC Famotidine (Pepcid) 20 mg BID IVP Last administered on 12/01/16 08:57; Start 11/20/16 at 11:00 Atorvastatin Calcium (Lipitor) 10 mg QHS PO Last administered on 11/30/16 21: 26; Start 11/20/16 at 21:00 Dutasteride (Avodart) 0.5 mg DAILY PO ; Start 11/20/16 at 11:00 Labetalol HCl (Normodyne) 10 mg PRN Q2HR PRN IVP HYPERTENSION, SEE COMMENTS; Start 11/20/16 at 10:45 Acetaminophen (Tylenol) 500 mg PRN Q6HRS PRN PO MILD PAIN / TEMP; Start at 10:45 Ondansetron HCl (Zofran) 4 mg PRN Q6HRS PRN IV NAUSEA/VOMITING; Start 11/21/16 at 07:00; Stop 11/22/16 at 06:59; Status DC Fentanyl Citrate (Fentanyl 2ml Vial) 25 mcg PRN Q5MIN PRN IV MILD PAIN; Start 11/21/16 at 07:00; Stop 11/22/16 at 06:59; Status DC Fentanyl Citrate (Fentanyl 2ml Vial) 50 mcg PRN Q5MIN PRN IV MODERATE PAIN; Start 11/21/16 at 07:00; Stop 11/22/16 at 06:59; Status DC Morphine Sulfate 1 mg PRN Q10MIN PRN IV SEVERE PAIN; Start 11/21/16 at 07:00; Stop 11/22/16 at 06:59; Status DC Ringer's Solution 1,000 ml @ 30 mls/hr Q24H IV ; Start 11/21/16 at 07:00; Stop 11/21/16 at 18:59; Status DC Lidocaine HCl 2 ml PRN 1X PRN ID PRIOR TO IV START; Start 11/21/16 at 07:00; Stop 11/22/16 at 06:59; Status DC Hydromorphone HCl (Dilaudid) 0.5 mg PRN Q10MIN PRN IV SEV PAIN, Second choice; Start 11/21/16 at 07:00; Stop 11/22/16 at 06:59; Status DC Prochlorperazine Edisylate (Compazine) 5 mg PACU PRN PRN IV NAUSEA, MRX1; Start 11/21/16 at 07:00; Stop 11/22/16 at 06:59; Status DC Hydralazine HCl (Apresoline) 10 mg PRN Q4HRS PRN IVP ELEVATED BP, SEE COMMENTS ; Start 11/20/16 at 15:30 Propofol 20 ml @ As Directed STK-MED ONCE IV ; Start 11/21/16 at 07:20; Stop at 07:21; Status DC Lidocaine HCl (Lidocaine Pf 2% Vial) 5 ml STK-MED ONCE .ROUTE ; Start 11/21/16 at 07:20; Stop 11/21/16 at 07:21; Status DC Ondansetron HCl (Zofran) 4 mg STK-MED ONCE .ROUTE ; Start 11/21/16 at 07:20; Stop 11/21/16 at 07:21; Status DC Dexamethasone Sodium Phosphate (Decadron) 20 mg STK-MED ONCE .ROUTE ; Start at 07:20; Stop 11/21/16 at 07:21; Status DC Phenylephrine HCl 1 mg STK-MED ONCE IV ; Start 11/21/16 at 07:21; Stop 11/21/16 at 07:22; Status DC Ephedrine Sulfate 50 mg STK-MED ONCE IV ; Start 11/21/16 at 07:21; Stop at 07:22; Status DC Fentanyl Citrate (Fentanyl 5ml Vial) 250 mcg STK-MED ONCE .ROUTE ; Start at 07:21; Stop 11/21/16 at 07:22; Status DC Rocuronium [place] (Zemuron) 50 mg STK-MED ONCE .ROUTE ; Start 11/21/16 at 07:22 ; Stop 11/21/16 at 07:23; Status DC Famotidine (Pepcid) 20 mg STK-MED ONCE .ROUTE ; Start 11/21/16 at 07:23; Stop at 07:24; Status DC Cellulose 1 each STK-MED ONCE .ROUTE Last administered on 11/21/16 10:29; Start 11/21/16 at 07:33; Stop 11/21/16 at 07:34; Status DC Bupivacaine HCl/ Epinephrine Bitart (Marcaine-Epi 0.5%-[id number]) 50 ml STK-MED ONCE .ROUTE Last administered on 11/21/16 08:43; Start 11/21/16 at 07:34; Stop 11/21/16 at 07:35; Status DC Cefazolin Sodium/ Dextrose 50 ml @ 100 mls/hr 1X PREOP ONCE IV Last administered on 11/21/16 08:25; Start 11/21/16 at 07:37; Stop 11/21/16 at 08:06 ; Status DC Succinylcholine Chloride (Anectine) 200 mg STK-MED ONCE .ROUTE ; Start 11/21/16 at 07:59; Stop 11/21/16 at 08:00; Status DC Sevoflurane (Ultane) 90 ml STK-MED ONCE IH ; Start 11/21/16 at 09:24; Stop 11/21 at 09:25; Status DC Rocuronium [place] (Zemuron) 50 mg STK-MED ONCE .ROUTE ; Start 11/21/16 at 09:25 ; Stop 11/21/16 at 09:26; Status DC Cellulose 1 each STK-MED ONCE .ROUTE ; Start 11/21/16 at 10:11; Stop 11/21/16 at 10:12; Status DC Sodium Bicarbonate 50 meq STK-MED ONCE .ROUTE ; Start 11/21/16 at 10:34; Stop at 10:35; Status DC Rocuronium [place] (Zemuron) 50 mg STK-MED ONCE .ROUTE ; Start 11/21/16 at 11:00 ; Stop 11/21/16 at 11:01; Status DC Sevoflurane (Ultane) 90 ml STK-MED ONCE IH ; Start 11/21/16 at 12:46; Stop 11/21 at 12:47; Status DC Piperacillin Sod/ Tazobactam Sod 3.375 gm/Sodium Chloride 50 ml @ 100 mls/hr Q6HRS IV Last administered on 11/26/16 11:40; Start 11/21/16 at 14:00; Stop at 14:43; Status DC Fentanyl Citrate (Fentanyl 2ml Vial) 25 mcg PRN Q2HR PRN IV PAIN Last administered on 11/24/16 02:49; Start 11/21/16 at 13:30; Stop 11/25/16 at 12:11 ; Status DC Fentanyl Citrate (Fentanyl 2ml Vial) 50 mcg PRN Q2HR PRN IV PAIN Last administered on 11/23/16 09:50; Start 11/21/16 at 13:30; Stop 11/25/16 at 12:11 ; Status DC Propofol 100 ml @ 0 mls/hr CONT PRN IV PER PROTOCOL Last administered on 03:36; Start 11/21/16 at 13:30 Fentanyl Citrate (Fentanyl 2ml Vial) 25 mcg PRN Q1HR PRN IV COMM Last administered on 11/27/16 06:03; Start 11/21/16 at 13:30 Fentanyl Citrate (Fentanyl 2ml Vial) 50 mcg PRN Q1HR PRN IV COMM Last administered on 11/26/16 23:08; Start 11/21/16 at 13:30 Chlorhexidine Gluconate (Peridex) 15 ml BID MM Last administered on 12/01/16 08:57; Start 11/21/16 at 21:00 Potassium Chloride/Dextrose/ Sod Cl 1,000 ml @ 100 mls/hr Q10H IV Last administered on 11/25/16 08:55; Start 11/21/16 at 15:00; Stop 11/25/16 at 21:59 ; Status DC Albuterol/ Ipratropium (Duoneb) 3 ml RTQID NEB Last administered on 12/01/16 07:25; Start 11/23/16 at 16:00 Amino Acids/ Glycerin/ Electrolytes 1,000 ml @ 80 mls/hr [id number] IV ; Start at 16:15; Stop 11/23/16 at 18:21; Status DC Amino Acids/ Glycerin/ Electrolytes 1,000 ml @ 80 mls/hr [id number] IV Last administered on 11/24/16 08:00; Start 11/23/16 at 21:00; Stop 11/24/16 at 13:45 ; Status DC Amino Acids/ Glycerin/ Electrolytes 1,000 ml @ 80 mls/hr [id number] IV Last administered on 11/25/16 08:22; Start 11/25/16 at 08:00; Stop 11/25/16 at 21:59 ; Status DC Linezolid 300 ml @ 300 mls/hr Q12HR IV Last administered on 11/28/16 09:12; Start 11/25/16 at 10:00; Stop 11/28/16 at 12:42; Status DC Info 1 each PRN DAILY PRN MC SEE COMMENTS Last administered on 11/30/16 13:53 ; Start 11/25/16 at 11:15 Sodium Acetate 90 meq/Potassium Chloride 50 meq/ Potassium Phosphate 13.6 mmol/ Magnesium Sulfate 10 meq/ Calcium Gluconate 10 meq/ Multivitamins 10 ml/Chromium / Copper/Manganese/ Seleni/Zn 1 ml/ Total Parenteral Nutrition/Amino Acids/ Dextrose 1,512 ml @ 63 mls/hr TPN CONT IV Last administered on 11/25/16 22: 04; Start 11/25/16 at 22:00; Stop 11/26/16 at 21:59; Status DC Sodium Chloride 45 meq/Sodium Acetate 45 meq/ Potassium Chloride 50 meq/ Potassium Phosphate 17 mmol/ Magnesium Sulfate 16 meq/Calcium Gluconate 14 meq/ Multivitamins 10 ml/Chromium/ Copper/Manganese/ Seleni/Zn 1 ml/ Total Parenteral Nutrition/Amino Acids/Dextrose 1,512 ml @ 63 mls/hr TPN CONT IV Last administered on 11/26/16 21:01; Start 11/26/16 at 22:00; Stop 11/27/16 at 21:59; Status DC Potassium Phosphate 10 mmol/ Sodium Chloride 103.3333 ml @ 51.667 m... Q2H IV Last administered on 11/26/16 14:54; Start 11/26/16 at 13:30; Stop 11/26/16 at 17:29; Status DC Meropenem 500 mg/ Sodium Chloride 50 ml @ 100 mls/hr Q8HRS IV Last administered on 12/01/16 05:59; Start 11/26/16 at 15:00 Potassium Chloride/Dextrose/ Sod Cl 1,000 ml @ 37 mls/hr Q24H IV Last administered on 11/30/16 19:40; Start 11/26/16 at 20:00 Sodium Chloride 45 meq/Sodium Acetate 45 meq/ Potassium Chloride 50 meq/ Potassium Phosphate 17 mmol/ Magnesium Sulfate 12 meq/Calcium Gluconate 12 meq/ Multivitamins 10 ml/Chromium/ Copper/Manganese/ Seleni/Zn 1 ml/ Total Parenteral Nutrition/Amino Acids/Dextrose/ Fat Emulsion Intravenous 1,512 ml @ 63 mls/hr TPN CONT IV Last administered on 11/27/16 22:11; Start 11/27/16 at 22:00; Stop 11/28/16 at 21:59; Status DC Sodium Chloride 45 meq/Sodium Acetate 45 meq/ Potassium Chloride 50 meq/ Potassium Phosphate 17 mmol/ Magnesium Sulfate 12 meq/Calcium Gluconate 10 meq/ Multivitamins 10 ml/Chromium/ Copper/Manganese/ Seleni/Zn 1 ml/ Total Parenteral Nutrition/Amino Acids/Dextrose 1,512 ml @ 63 mls/hr TPN CONT IV Last administered on 11/28/16 21:35; Start 11/28/16 at 22:00; Stop 11/29/16 at 21:59; Status DC Sodium Chloride 45 meq/Sodium Acetate 45 meq/ Potassium Chloride 50 meq/ Potassium Phosphate 17 mmol/ Magnesium Sulfate 12 meq/ Multivitamins 10 ml/ Chromium/ Copper/Manganese/ Seleni/Zn 1 ml/ Total Parenteral Nutrition/Amino Acids/Dextrose 1,512 ml @ 63 mls/hr TPN CONT IV Last administered on 23:23; Start 11/29/16 at 22:00; Stop 11/30/16 at 21:59; Status DC Enoxaparin Sodium (Lovenox 40mg Syringe) 40 mg Q24H SQ Last administered on 08:58; Start 11/30/16 at 10:00 Sodium Chloride 45 meq/Sodium Acetate 45 meq/ Potassium Chloride 50 meq/ Potassium Phosphate 17 mmol/ Magnesium Sulfate 12 meq/ Multivitamins 10 ml/ Chromium/ Copper/Manganese/ Seleni/Zn 1 ml/ Total Parenteral Nutrition/Amino Acids/Dextrose 1,512 ml @ 63 mls/hr TPN CONT IV Last administered on 21:31; Start 11/30/16 at 22:00; Stop 12/01/16 at 21:59 Active Scripts Active Reported Aspir 81 (Aspirin) 81 Mg Tablet.dr 81 Mg PO DAILY Atorvastatin Calcium 10 Mg Tablet 1 Tab PO DAILY Aspirin 81 Mg Tab.chew 1 Tab PO DAILY Avodart (Dutasteride) 0.5 Mg Capsule 1 Cap PO DAILY Vitals/I & O Vital Sign - Last 24 Hours 11/30/16 11/30/16 11/30/16 11/30/16 10:00 10:05 12:00 12:00 Pulse 66 69 Resp 28 24 B/P (MAP) 123/60 (81) Pulse Ox 100 100 100 O2 Delivery C-PAP trial Ventilator Mechanical Ventilator Ventilator 11/30/16 11/30/16 11/30/16 11/30/16 12:56 14:00 15:54 16:00 Pulse 72 Resp 24 B/P (MAP) 127/61 (83) Pulse Ox 100 100 100 O2 Delivery Ventilator Ventilator Ventilator Mechanical Ventilator 11/30/16 11/30/16 11/30/16 11/30/16 16:00 17:25 18:00 19:00 Temp 99.1 98.9 99.1 98.9 Pulse 72 68 68 Resp 24 28 25 B/P (MAP) 127/66 (86) 113/69 (84) 113/69 (84) Pulse Ox 100 100 100 100 O2 Delivery Ventilator Ventilator Ventilator Ventilator 11/30/16 11/30/16 11/30/16 11/30/16 19:55 20:00 20:00 21:00 Pulse 68 68 Resp 23 26 B/P (MAP) 129/66 (87) Pulse Ox 100 100 100 O2 Delivery Ventilator Mechanical Ventilator Ventilator Ventilator 11/30/16 11/30/16 11/30/16 12/01/16 22:00 23:00 23:11 00:00 Pulse 68 65 Resp 29 20 B/P (MAP) 122/58 (79) 110/56 (74) Pulse Ox 100 100 100 O2 Delivery Ventilator Ventilator Ventilator Mechanical Ventilator 12/01/16 12/01/16 12/01/16 12/01/16 00:00 01:00 01:09 02:00 Temp 99.0 99.0 Pulse 66 69 66 Resp 27 24 24 B/P (MAP) 107/58 (74) 111/56 (74) 121/58 (79) Pulse Ox 100 100 100 100 O2 Delivery Ventilator Ventilator Ventilator Ventilator 12/01/16 12/01/16 12/01/16 12/01/16 03:00 03:15 04:00 04:00 Temp 99.5 99.5 Pulse 66 62 Resp 22 22 B/P (MAP) 111/59 (76) 106/51 (69) Pulse Ox 100 100 100 O2 Delivery Ventilator Ventilator Ventilator Mechanical Ventilator 12/01/16 12/01/16 12/01/16 12/01/16 05:00 05:05 06:00 07:26 Pulse 62 62 Resp 27 B/P (MAP) 107/53 (71) 96/56 (69) Pulse Ox 100 100 100 100 O2 Delivery Ventilator Ventilator Ventilator Ventilator 12/01/16 08:30 Pulse Ox 100 O2 Delivery Ventilator Intake and Output 11/30/16 11/30/16 12/01/16 15:00 23:00 07:00 Intake Total 89 ml 1909 ml 1255 ml Output Total 675 ml 640 ml 515 ml Balance -586 ml 1269 ml 740 ml HENRIK YORK MD Dec 01, 2016 09:14
--- NOTE | 2016-12-01 09:16 | PDOC ---
Infectious Disease Note Subjective Subjective Remains intubated. FiO2 down to 30% TPN No fever last 24 hours Vital Sign Vital Signs Vital Signs Date Time Temp Pulse Resp B/P (MAP) Pulse Ox O2 Delivery O2 Flow Rate FiO2 12/01/16 08:30 100 Ventilator 12/01/16 06:00 62 27 96/56 (69) 12/01/16 04:00 99.5 99.5 Physical Exam PHYSICAL EXAM GENERAL: Intubated HEENT: ETT LUNGS: Diminished aeration. HEART: Normal S1 and S2. Pacemaker. ABDOMEN: Mildly distended. Hypoactive BS, soft. No grimace or guarding to palpation. Gastrostomy tube. Midline incision covered. GENITOURINARY: Riddle. EXTREMITIES: Trace edema, no cyanosis. SKIN: Without rash. YOUTH CARE SPECIALIST: Unresponsive to voice, stirs to tactile stimulation LUE - PICC. Clean (11/24). Labs Lab Laboratory Tests Test 11/30/16 10:15 O2 Saturation 96 % (92-99) Arterial Blood pH 7.49 (7.35-7.45) Arterial Blood pCO2 at Patient Temp 29 mmHg (35-46) Arterial Blood pO2 at Patient Temp 95 mmHg (65-108) Arterial Blood HCO3 21 mmol/L (21-28) Arterial Blood Base Excess -1 mmol/L (-3-3) FiO2 30 Objective Assessment Fever, better Leukocytosis, stable Aspiration pneumonia. s/p bronch 11/22. GS: GPC & yeast. Final cx yeast only. 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 Acute respiratory failure Anemia s/p PRBCs 11/27 Pacemaker Dementia Plan Plan of Care Meropenem (started 11/26) Monitor labs Supportive care Attending Co-Sign The patient was seen and interviewed as well as examined at the bedside. The chart was reviewed. The case was discussed. Agree with the plan of care. HAWA BEYER APRN Dec 01, 2016 09:16 JANES BEJARANO MD Dec 01, 2016 11:34
[2016-12-01 09:20] LABS: HCO3 ABG 23 mmol/L (21-28); PCO2 ABG 33 mmHg (35-46); PH ABG 7.46 (7.35-7.45); PO2 ABG 96 mmHg (65-108); SAT O2 ABG 97 % (92-99)
[2016-12-01 09:22] LABS: FIO2 ABG 30
--- NOTE | 2016-12-01 10:15 | PDOC ---
SURGICAL PROGRESS NOTE Subjective d/w nursing, following some simple commands, tolerating TF Vital Signs Vital Signs Date Time Temp Pulse Resp B/P (MAP) Pulse Ox O2 Delivery O2 Flow Rate FiO2 12/01/16 09:13 100 Ventilator 12/01/16 06:00 62 27 96/56 (69) 12/01/16 04:00 99.5 99.5 I&O Intake and Output 12/01/16 07:00 Intake Total 3253 ml Output Total 1830 ml Balance 1423 ml IV Total 2638 ml Tube Feeding 555 ml Other 60 ml Output Urine Total 1830 ml PATIENT HAS A KIDD: Yes General: No acute distress Abdomen: Soft, Other (serous drainage from incision, mild erythema, no induration or fluctunance) Labs Laboratory Tests Test 11/30/16 06:40 11/30/16 07:45 11/30/16 10:15 12/01/16 08:00 Glucose (Fingerstick) 118 mg/dL (70-99) O2 Saturation 97 % (92-99) 96 % (92-99) 97 % (92-99) Arterial Blood pH 7.48 (7.35-7.45) 7.49 (7.35-7.45) 7.46 (7.35-7.45) Arterial Blood pCO2 at Patient Temp 32 mmHg (35-46) 29 mmHg (35-46) 33 mmHg (35-46) Arterial Blood pO2 at Patient Temp 95 mmHg (65-108) 95 mmHg (65-108) 96 mmHg (65-108) Arterial Blood HCO3 23 mmol/L (21-28) 21 mmol/L (21-28) 23 mmol/L (21-28) Arterial Blood Base Excess 0 mmol/L (-3-3) -1 mmol/L (-3-3) 0 mmol/L (-3-3) FiO2 35 30 30 Laboratory Tests Test 11/30/16 10:15 12/01/16 08:00 O2 Saturation 96 % (92-99) 97 % (92-99) Arterial Blood pH 7.49 (7.35-7.45) 7.46 (7.35-7.45) Arterial Blood pCO2 at Patient Temp 29 mmHg (35-46) 33 mmHg (35-46) Arterial Blood pO2 at Patient Temp 95 mmHg (65-108) 96 mmHg (65-108) Arterial Blood HCO3 21 mmol/L (21-28) 23 mmol/L (21-28) Arterial Blood Base Excess -1 mmol/L (-3-3) 0 mmol/L (-3-3) FiO2 30 30 Problem List Problems Medical Problems: (1) Upper GI bleeding Status: Acute Assessment/Plan supportive care no surgical recs Problems: QIANA GIBSON CLINICAL TRIAL SPECIALIST Dec 01, 2016 10:15
[2016-12-01] MEDS: ATORVASTATIN CALCIUM 10 MG TABLET. PO SCH (21:09)
[2016-12-02] VITALS (24 sets, daily range): BP systolic 94–151; BP diastolic 48–72
[2016-12-02] MEDS: MEROPENEM 500 MG in IV NORMAL SALINE 50ML 50 ML IV SCH ×3 (06:12→21:47)
[2016-12-02] MEDS: IPRATRPIUM/ALBUTEROL 0.5/2.5MG 3 ML NEBU. NEB SCH ×4 (07:11→19:36)
--- NOTE | 2016-12-02 08:15 | PDOC ---
PULMONARY PROGRESS NOTES Subjective on vent, tachypneac, follows some commands st times MOD-large SECRETION, yesterday sbt, rr in 30s Vitals Vital Signs Date Time Temp Pulse Resp B/P (MAP) Pulse Ox O2 Delivery O2 Flow Rate FiO2 12/02/16 08:01 100 Ventilator 12/02/16 07:00 65 21 117/64 (81) 12/02/16 06:00 99.2 99.2 Comments ros discussed w rn, as mentioned as above other sys otherwise neg HEENT: Other (nc at perrl, orally intubated, nose clear, neck, no thyromegaly, no lap) Lungs: Crackles Cardiovascular: S1, S2 Abdomen: Soft, Non-tender, Other (no mass) Extremities: No Edema Skin: Warm Labs Laboratory Tests Test 11/30/16 10:15 12/01/16 08:00 O2 Saturation 96 % (92-99) 97 % (92-99) Arterial Blood pH 7.49 (7.35-7.45) 7.46 (7.35-7.45) Arterial Blood pCO2 at Patient Temp 29 mmHg (35-46) 33 mmHg (35-46) Arterial Blood pO2 at Patient Temp 95 mmHg (65-108) 96 mmHg (65-108) Arterial Blood HCO3 21 mmol/L (21-28) 23 mmol/L (21-28) Arterial Blood Base Excess -1 mmol/L (-3-3) 0 mmol/L (-3-3) FiO2 30 30 Medications Active Scripts Medications Dose Route/Sig Max Daily Dose Days Date Category Aspir 81 (Aspirin) 81 Mg Tablet.dr 81 Mg PO DAILY 06/08/14 Reported Atorvastatin Calcium 10 Mg Tablet 1 Tab PO DAILY 03/10/14 Reported Aspirin 81 Mg Tab.chew 1 Tab PO DAILY 01/29/14 Reported Avodart (Dutasteride) 0.5 Mg Capsule 1 Cap PO DAILY 01/29/14 Reported Comments cxr reviewed, b lat infilt ett ok Impression . ACUTE RESP FAILURE MULTIFACTORIAL ASPIRATION PNEUMONIA S/P SEE OP NOTE Laparoscopic repair of large paraesophageal hernia, MELENA ARF ABNL CXR POSSIBLE EDEMA AND PNEUMONIA MALNUTRITION DEMENTIA Plan . cont vent support, vent setting reviewed, will do sbt, reeval after sbt no trach per family PT HAD A POOR QUALITY OF LIFE PRIOR TO SURGERY PALLIATIVE CARE consulted BROCH 11/04, BAL NEGATIVE keep I<O ANTIBX BRONCHODILATORS discussed w rn, rt, family maybe considering comfort care MARINO SHEIKH MD Dec 02, 2016 08:15
--- NOTE | 2016-12-02 08:18 | PDOC ---
Infectious Disease Note Subjective Subjective Remains intubated. FiO2 30% TPN Fever Tmax 100.2 ROS ROS unable to do Vital Sign Vital Signs Vital Signs Date Time Temp Pulse Resp B/P (MAP) Pulse Ox O2 Delivery O2 Flow Rate FiO2 12/02/16 08:01 100 Ventilator 12/02/16 07:00 65 21 117/64 (81) 12/02/16 06:00 99.2 99.2 Physical Exam PHYSICAL EXAM GENERAL: Awake, intubated, mittens HEENT: ETT LUNGS: Diminished aeration. HEART: Normal S1 and S2. Pacemaker. ABDOMEN: Mildly distended. BS active, soft. No grimace or guarding to palpation. Gastrostomy tube. Midline incision covered. GENITOURINARY: Riddle. EXTREMITIES: Trace edema, no cyanosis. SKIN: Without rash. UNDERWATER HUNTER: Unresponsive to questions LUE - PICC. Clean (11/24). Objective Assessment Fever, Leukocytosis, stable Aspiration pneumonia. s/p bronch 11/22. GS: GPC & yeast. Final cx yeast only. 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 Acute respiratory failure Anemia s/p PRBCs 11/27 Pacemaker Dementia Plan Plan of Care Meropenem (started 11/26) Monitor labs Supportive care Attending Co-Sign The patient was seen and interviewed as well as examined at the bedside. The chart was reviewed. The case was discussed. Agree with the plan of care. HAWA BEYER APRN Dec 02, 2016 08:18 JANES BEJARANO MD Dec 02, 2016 10:59
--- NOTE | 2016-12-02 08:50 | RAD ---
Portable AP upright chest x-ray performed at 05 20 Clinical indications: Respiratory failure. Lung infiltrates. Follow-up study. Comparison: November 28, 2016. IMPRESSION: Bilateral lung infiltrates are again evident which have improved. There is better visualization of the hemidiaphragms bilaterally. 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 No pleural effusion or pneumothorax is seen. ET tube is unchanged in position. The heart size and mediastinum are stable. 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
[2016-12-02] MEDS: DUTASTERIDE 0.5 MG CAPSULE PO SCH (09:00)
[2016-12-02] MEDS: FAMOTIDINE 20 MG/2 ML VIAL IVP SCH ×2 (09:55→20:51)
[2016-12-02] MEDS: CHLORHEXIDINE 0.12% 15 ML MOUTHWASH. MM SCH ×2 (09:56→20:51)
[2016-12-02] MEDS: ENOXAPARIN 40 MG/0.4 ML SYRINGE. SQ SCH (09:56)
--- NOTE | 2016-12-02 10:25 | PDOC ---
SURGICAL PROGRESS NOTE Subjective vent tolerating tf Vital Signs Vital Signs Date Time Temp Pulse Resp B/P (MAP) Pulse Ox O2 Delivery O2 Flow Rate FiO2 12/02/16 10:00 67 30 101/62 (75) 100 Ventilator 12/02/16 08:00 98.7 98.7 I&O Intake and Output 12/02/16 07:00 Intake Total 2550 ml Output Total 1750 ml Balance 800 ml IV Total 1046 ml Tube Feeding 1324 ml Other 180 ml Output Urine Total 1750 ml General: No acute distress, Other (opens eyes) Abdomen: Soft, Other (lower portion of incision with some drainage(serous), mild erythema, no induration or fluctunace, g tube in place) Labs Laboratory Tests Test 12/01/16 08:00 O2 Saturation 97 % (92-99) Arterial Blood pH 7.46 (7.35-7.45) Arterial Blood pCO2 at Patient Temp 33 mmHg (35-46) Arterial Blood pO2 at Patient Temp 96 mmHg (65-108) Arterial Blood HCO3 23 mmol/L (21-28) Arterial Blood Base Excess 0 mmol/L (-3-3) FiO2 30 Problem List Problems Medical Problems: (1) Upper GI bleeding Status: Acute Assessment/Plan supportive care Problems: QIANA GIBSON [employer]ICAL DEVICE SALES Dec 02, 2016 10:25
--- NOTE | 2016-12-02 11:20 | PDOC ---
PROGRESS NOTES Chief Complaint Chief Complaint hematemesis ASSESSMENT AND PLAN: 1. UGIB: s/p Laparoscopic repair of large paraesophageal hernia, open partial gastrectomy, placement of gastrostomy with gastropexy, nutrition as per general surgery. 2. Acute respiratory failure: On mechanical ventilation, possible aspiration. sputum cx + GNR. on zyvox and meropenum with ID 3. Leukocytosis 4. Arrhythmia: hx pacer placement 5. Prophylaxis: SCDs; 6. 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 7. HYPOPHOsphatemia: 8. DNR 9. OMARI 10. MOd pCM overall prognosis guarded History of Present Illness History of Present Illness Seen in ICU, intubated, sedated \ SAME Grand son at bedside Sometime follows sometimes does not follow commands when off sedation NOisy BS Pulmo note reviewed, keep intubated or terminal extubation (no LTAC plans) NO trach plans as dw by pulmo (pt had very poor lifestyle/QOL prior to this ) Saturday event - palliative got involved, now DNR but family unable to decide re terminal extubation Hgb otherwise stable, no further rebleeds PLatelets better - started on lovenox 11/30 for DVT prophy TPN and tF at 55.cc both running PLAN: Supportive care DNR TErminal extubation has been introduced to family by critical care late last week - still undecided NO further rebleeds off tpn, since on TF WOF further rebleeds or re thrombocytopenia - if this happens, dc lovenox shots Dw TRANSPORTATION SPECIALIST LAbs in AM dw grand son Vitals Vitals Vital Signs Date Time Temp Pulse Resp B/P (MAP) Pulse Ox O2 Delivery O2 Flow Rate FiO2 12/02/16 10:00 67 30 101/62 (75) 100 Ventilator 12/02/16 08:00 98.7 98.7 Physical Exam Physical Exam intubated ,sedated General: No acute distress, Other (opens eyes) Heart: Regular rate, Normal S1, Normal S2 Lungs: Crackles Abdomen: Soft, Other (lower portion of incision with some drainage(serous), mild erythema, no induration or fluctunace, g tube in place) Extremities: No clubbing, No cyanosis Skin: No rashes, No breakdown Review of Systems Review of Systems intubated, sedated Assessment and Plan Assessmemt and Plan Problems Medical Problems: (1) Upper GI bleeding Status: Acute Problems: Comment Review of Relevant I have reviewed the following items cordell (where applicable) has been applied. Labs Laboratory Tests Test 12/01/16 08:00 O2 Saturation 97 % (92-99) Arterial Blood pH 7.46 (7.35-7.45) Arterial Blood pCO2 at Patient Temp 33 mmHg (35-46) Arterial Blood pO2 at Patient Temp 96 mmHg (65-108) Arterial Blood HCO3 23 mmol/L (21-28) Arterial Blood Base Excess 0 mmol/L (-3-3) FiO2 30 Microbiology 11/25/16 Blood Culture - Final, Complete NO GROWTH AFTER 5 DAYS 11/24/16 Gram Stain - Final, Complete 11/19/16 Urine Culture - Final, Complete 11/19/16 Urine Culture Result 1 ([facility]) - Final, Complete Medications Current Medications Sodium Chloride 1,000 ml @ 1,000 mls/hr 1X ONCE IV Last administered on 20:55; Start 11/19/16 at 20:45; Stop 11/19/16 at 21:44; Status DC Famotidine (Pepcid) 40 mg 1X ONCE IVP Last administered on 11/19/16 21:54; Start 11/19/16 at 21:30; Stop 11/19/16 at 21:31; Status DC Ondansetron HCl (Zofran) 4 mg PRN Q8HRS PRN IV NAUSEA/VOMITING Last administered on 11/19/16 21:54; Start 11/19/16 at 21:45; Stop 11/20/16 at 10:44 ; Status DC Morphine Sulfate 2 mg PRN Q2HR PRN IV PAIN; Start 11/19/16 at 21:45; Stop 11/20 at 21:44; Status DC Sodium Chloride 1,000 ml @ 110 mls/hr Q9H6M IV Last administered on 11/20/16 17:53; Start 11/19/16 at 21:41; Stop 11/20/16 at 21:40; Status DC Ondansetron HCl (Zofran) 4 mg PRN Q6HRS PRN IV NAUSEA/VOMITING; Start 11/20/16 at 10:42; Stop 11/21/16 at 10:41; Status DC Famotidine (Pepcid) 20 mg BID IVP Last administered on 12/02/16 09:55; Start 11/20/16 at 11:00 Atorvastatin Calcium (Lipitor) 10 mg QHS PO Last administered on 12/01/16 21: 09; Start 11/20/16 at 21:00 Dutasteride (Avodart) 0.5 mg DAILY PO ; Start 11/20/16 at 11:00 Labetalol HCl (Normodyne) 10 mg PRN Q2HR PRN IVP HYPERTENSION, SEE COMMENTS; Start 11/20/16 at 10:45 Acetaminophen (Tylenol) 500 mg PRN Q6HRS PRN PO MILD PAIN / TEMP; Start at 10:45 Ondansetron HCl (Zofran) 4 mg PRN Q6HRS PRN IV NAUSEA/VOMITING; Start 11/21/16 at 07:00; Stop 11/22/16 at 06:59; Status DC Fentanyl Citrate (Fentanyl 2ml Vial) 25 mcg PRN Q5MIN PRN IV MILD PAIN; Start 11/21/16 at 07:00; Stop 11/22/16 at 06:59; Status DC Fentanyl Citrate (Fentanyl 2ml Vial) 50 mcg PRN Q5MIN PRN IV MODERATE PAIN; Start 11/21/16 at 07:00; Stop 11/22/16 at 06:59; Status DC Morphine Sulfate 1 mg PRN Q10MIN PRN IV SEVERE PAIN; Start 11/21/16 at 07:00; Stop 11/22/16 at 06:59; Status DC Ringer's Solution 1,000 ml @ 30 mls/hr Q24H IV ; Start 11/21/16 at 07:00; Stop 11/21/16 at 18:59; Status DC Lidocaine HCl 2 ml PRN 1X PRN ID PRIOR TO IV START; Start 11/21/16 at 07:00; Stop 11/22/16 at 06:59; Status DC Hydromorphone HCl (Dilaudid) 0.5 mg PRN Q10MIN PRN IV SEV PAIN, Second choice; Start 11/21/16 at 07:00; Stop 11/22/16 at 06:59; Status DC Prochlorperazine Edisylate (Compazine) 5 mg PACU PRN PRN IV NAUSEA, MRX1; Start 11/21/16 at 07:00; Stop 11/22/16 at 06:59; Status DC Hydralazine HCl (Apresoline) 10 mg PRN Q4HRS PRN IVP ELEVATED BP, SEE COMMENTS ; Start 11/20/16 at 15:30 Propofol 20 ml @ As Directed STK-MED ONCE IV ; Start 11/21/16 at 07:20; Stop at 07:21; Status DC Lidocaine HCl (Lidocaine Pf 2% Vial) 5 ml STK-MED ONCE .ROUTE ; Start 11/21/16 at 07:20; Stop 11/21/16 at 07:21; Status DC Ondansetron HCl (Zofran) 4 mg STK-MED ONCE .ROUTE ; Start 11/21/16 at 07:20; Stop 11/21/16 at 07:21; Status DC Dexamethasone Sodium Phosphate (Decadron) 20 mg STK-MED ONCE .ROUTE ; Start at 07:20; Stop 11/21/16 at 07:21; Status DC Phenylephrine HCl 1 mg STK-MED ONCE IV ; Start 11/21/16 at 07:21; Stop 11/21/16 at 07:22; Status DC Ephedrine Sulfate 50 mg STK-MED ONCE IV ; Start 11/21/16 at 07:21; Stop at 07:22; Status DC Fentanyl Citrate (Fentanyl 5ml Vial) 250 mcg STK-MED ONCE .ROUTE ; Start at 07:21; Stop 11/21/16 at 07:22; Status DC Rocuronium [place] (Zemuron) 50 mg STK-MED ONCE .ROUTE ; Start 11/21/16 at 07:22 ; Stop 11/21/16 at 07:23; Status DC Famotidine (Pepcid) 20 mg STK-MED ONCE .ROUTE ; Start 11/21/16 at 07:23; Stop at 07:24; Status DC Cellulose 1 each STK-MED ONCE .ROUTE Last administered on 11/21/16 10:29; Start 11/21/16 at 07:33; Stop 11/21/16 at 07:34; Status DC Bupivacaine HCl/ Epinephrine Bitart (Marcaine-Epi 0.5%-[id number]) 50 ml STK-MED ONCE .ROUTE Last administered on 11/21/16 08:43; Start 11/21/16 at 07:34; Stop 11/21/16 at 07:35; Status DC Cefazolin Sodium/ Dextrose 50 ml @ 100 mls/hr 1X PREOP ONCE IV Last administered on 11/21/16 08:25; Start 11/21/16 at 07:37; Stop 11/21/16 at 08:06 ; Status DC Succinylcholine Chloride (Anectine) 200 mg STK-MED ONCE .ROUTE ; Start 11/21/16 at 07:59; Stop 11/21/16 at 08:00; Status DC Sevoflurane (Ultane) 90 ml STK-MED ONCE IH ; Start 11/21/16 at 09:24; Stop 11/21 at 09:25; Status DC Rocuronium [place] (Zemuron) 50 mg STK-MED ONCE .ROUTE ; Start 11/21/16 at 09:25 ; Stop 11/21/16 at 09:26; Status DC Cellulose 1 each STK-MED ONCE .ROUTE ; Start 11/21/16 at 10:11; Stop 11/21/16 at 10:12; Status DC Sodium Bicarbonate 50 meq STK-MED ONCE .ROUTE ; Start 11/21/16 at 10:34; Stop at 10:35; Status DC Rocuronium [place] (Zemuron) 50 mg STK-MED ONCE .ROUTE ; Start 11/21/16 at 11:00 ; Stop 11/21/16 at 11:01; Status DC Sevoflurane (Ultane) 90 ml STK-MED ONCE IH ; Start 11/21/16 at 12:46; Stop 11/21 at 12:47; Status DC Piperacillin Sod/ Tazobactam Sod 3.375 gm/Sodium Chloride 50 ml @ 100 mls/hr Q6HRS IV Last administered on 11/26/16 11:40; Start 11/21/16 at 14:00; Stop at 14:43; Status DC Fentanyl Citrate (Fentanyl 2ml Vial) 25 mcg PRN Q2HR PRN IV PAIN Last administered on 11/24/16 02:49; Start 11/21/16 at 13:30; Stop 11/25/16 at 12:11 ; Status DC Fentanyl Citrate (Fentanyl 2ml Vial) 50 mcg PRN Q2HR PRN IV PAIN Last administered on 11/23/16 09:50; Start 11/21/16 at 13:30; Stop 11/25/16 at 12:11 ; Status DC Propofol 100 ml @ 0 mls/hr CONT PRN IV PER PROTOCOL Last administered on 03:36; Start 11/21/16 at 13:30 Fentanyl Citrate (Fentanyl 2ml Vial) 25 mcg PRN Q1HR PRN IV COMM Last administered on 11/27/16 06:03; Start 11/21/16 at 13:30 Fentanyl Citrate (Fentanyl 2ml Vial) 50 mcg PRN Q1HR PRN IV COMM Last administered on 11/26/16 23:08; Start 11/21/16 at 13:30 Chlorhexidine Gluconate (Peridex) 15 ml BID MM Last administered on 12/02/16 09:56; Start 11/21/16 at 21:00 Potassium Chloride/Dextrose/ Sod Cl 1,000 ml @ 100 mls/hr Q10H IV Last administered on 11/25/16 08:55; Start 11/21/16 at 15:00; Stop 11/25/16 at 21:59 ; Status DC Albuterol/ Ipratropium (Duoneb) 3 ml RTQID NEB Last administered on 12/02/16 07:11; Start 11/23/16 at 16:00 Amino Acids/ Glycerin/ Electrolytes 1,000 ml @ 80 mls/hr [id number] IV ; Start at 16:15; Stop 11/23/16 at 18:21; Status DC Amino Acids/ Glycerin/ Electrolytes 1,000 ml @ 80 mls/hr [id number] IV Last administered on 11/24/16 08:00; Start 11/23/16 at 21:00; Stop 11/24/16 at 13:45 ; Status DC Amino Acids/ Glycerin/ Electrolytes 1,000 ml @ 80 mls/hr [id number] IV Last administered on 11/25/16 08:22; Start 11/25/16 at 08:00; Stop 11/25/16 at 21:59 ; Status DC Linezolid 300 ml @ 300 mls/hr Q12HR IV Last administered on 11/28/16 09:12; Start 11/25/16 at 10:00; Stop 11/28/16 at 12:42; Status DC Info 1 each PRN DAILY PRN MC SEE COMMENTS Last administered on 11/30/16 13:53 ; Start 11/25/16 at 11:15; Stop 12/01/16 at 09:11; Status DC Sodium Acetate 90 meq/Potassium Chloride 50 meq/ Potassium Phosphate 13.6 mmol/ Magnesium Sulfate 10 meq/ Calcium Gluconate 10 meq/ Multivitamins 10 ml/Chromium / Copper/Manganese/ Seleni/Zn 1 ml/ Total Parenteral Nutrition/Amino Acids/ Dextrose 1,512 ml @ 63 mls/hr TPN CONT IV Last administered on 11/25/16 22: 04; Start 11/25/16 at 22:00; Stop 11/26/16 at 21:59; Status DC Sodium Chloride 45 meq/Sodium Acetate 45 meq/ Potassium Chloride 50 meq/ Potassium Phosphate 17 mmol/ Magnesium Sulfate 16 meq/Calcium Gluconate 14 meq/ Multivitamins 10 ml/Chromium/ Copper/Manganese/ Seleni/Zn 1 ml/ Total Parenteral Nutrition/Amino Acids/Dextrose 1,512 ml @ 63 mls/hr TPN CONT IV Last administered on 11/26/16 21:01; Start 11/26/16 at 22:00; Stop 11/27/16 at 21:59; Status DC Potassium Phosphate 10 mmol/ Sodium Chloride 103.3333 ml @ 51.667 m... Q2H IV Last administered on 11/26/16 14:54; Start 11/26/16 at 13:30; Stop 11/26/16 at 17:29; Status DC Meropenem 500 mg/ Sodium Chloride 50 ml @ 100 mls/hr Q8HRS IV Last administered on 12/02/16 06:12; Start 11/26/16 at 15:00 Potassium Chloride/Dextrose/ Sod Cl 1,000 ml @ 37 mls/hr Q24H IV Last administered on 11/30/16 19:40; Start 11/26/16 at 20:00; Stop 12/01/16 at 09:11 ; Status DC Sodium Chloride 45 meq/Sodium Acetate 45 meq/ Potassium Chloride 50 meq/ Potassium Phosphate 17 mmol/ Magnesium Sulfate 12 meq/Calcium Gluconate 12 meq/ Multivitamins 10 ml/Chromium/ Copper/Manganese/ Seleni/Zn 1 ml/ Total Parenteral Nutrition/Amino Acids/Dextrose/ Fat Emulsion Intravenous 1,512 ml @ 63 mls/hr TPN CONT IV Last administered on 11/27/16 22:11; Start 11/27/16 at 22:00; Stop 11/28/16 at 21:59; Status DC Sodium Chloride 45 meq/Sodium Acetate 45 meq/ Potassium Chloride 50 meq/ Potassium Phosphate 17 mmol/ Magnesium Sulfate 12 meq/Calcium Gluconate 10 meq/ Multivitamins 10 ml/Chromium/ Copper/Manganese/ Seleni/Zn 1 ml/ Total Parenteral Nutrition/Amino Acids/Dextrose 1,512 ml @ 63 mls/hr TPN CONT IV Last administered on 11/28/16 21:35; Start 11/28/16 at 22:00; Stop 11/29/16 at 21:59; Status DC Sodium Chloride 45 meq/Sodium Acetate 45 meq/ Potassium Chloride 50 meq/ Potassium Phosphate 17 mmol/ Magnesium Sulfate 12 meq/ Multivitamins 10 ml/ Chromium/ Copper/Manganese/ Seleni/Zn 1 ml/ Total Parenteral Nutrition/Amino Acids/Dextrose 1,512 ml @ 63 mls/hr TPN CONT IV Last administered on 23:23; Start 11/29/16 at 22:00; Stop 11/30/16 at 21:59; Status DC Enoxaparin Sodium (Lovenox 40mg Syringe) 40 mg Q24H SQ Last administered on 09:56; Start 11/30/16 at 10:00 Sodium Chloride 45 meq/Sodium Acetate 45 meq/ Potassium Chloride 50 meq/ Potassium Phosphate 17 mmol/ Magnesium Sulfate 12 meq/ Multivitamins 10 ml/ Chromium/ Copper/Manganese/ Seleni/Zn 1 ml/ Total Parenteral Nutrition/Amino Acids/Dextrose 1,512 ml @ 63 mls/hr TPN CONT IV Last administered on 21:31; Start 11/30/16 at 22:00; Stop 12/01/16 at 21:59; Status DC Active Scripts Active Reported Aspir 81 (Aspirin) 81 Mg Tablet.dr 81 Mg PO DAILY Atorvastatin Calcium 10 Mg Tablet 1 Tab PO DAILY Aspirin 81 Mg Tab.chew 1 Tab PO DAILY Avodart (Dutasteride) 0.5 Mg Capsule 1 Cap PO DAILY Vitals/I & O Vital Sign - Last 24 Hours 12/01/16 12/01/16 12/01/16 12/01/16 11:26 12:00 12:00 12:57 Temp 99.1 99.1 Pulse 64 Resp 22 B/P (MAP) 100/53 (69) Pulse Ox 100 100 100 O2 Delivery Ventilator Ventilator Mechanical Ventilator Ventilator 12/01/16 12/01/16 12/01/16 12/01/16 13:00 14:00 15:00 15:20 Pulse 68 64 67 Resp 24 20 26 B/P (MAP) 100/54 (69) 110/59 (76) 113/58 (76) Pulse Ox 100 100 100 100 O2 Delivery Ventilator Ventilator Ventilator Ventilator 12/01/16 12/01/16 12/01/16 12/01/16 16:00 16:00 16:54 17:00 Temp 99.0 99.0 Pulse 66 65 Resp 26 B/P (MAP) 105/57 (73) 103/53 (70) Pulse Ox 100 100 100 O2 Delivery Mechanical Ventilator Ventilator Ventilator Ventilator 12/01/16 12/01/16 12/01/16 12/01/16 18:00 19:00 20:00 20:00 Temp 99.4 99.4 Pulse 64 62 62 Resp 23 26 25 B/P (MAP) 118/59 (78) 106/51 (69) 106/56 (73) Pulse Ox 100 100 100 100 O2 Delivery Ventilator Ventilator Ventilator Ventilator 12/01/16 12/01/16 12/01/16 12/01/16 20:00 21:00 22:00 22:14 Pulse 62 64 Resp 23 B/P (MAP) 113/58 (76) 120/63 (82) Pulse Ox 100 100 100 O2 Delivery Mechanical Ventilator Ventilator Ventilator Ventilator 12/01/16 12/02/16 12/02/16 12/02/16 23:00 00:00 00:00 00:43 Temp 99.4 99.4 Pulse 64 66 Resp 25 B/P (MAP) 114/54 (74) 113/56 (75) Pulse Ox 100 100 100 O2 Delivery Ventilator Ventilator Mechanical Ventilator Ventilator 12/02/16 12/02/16 12/02/16 12/02/16 01:00 02:00 03:00 03:16 Pulse 62 62 62 Resp 26 26 26 B/P (MAP) 117/71 (86) 119/72 (88) 118/57 (77) Pulse Ox 100 100 100 100 O2 Delivery Ventilator Ventilator Ventilator Ventilator 12/02/16 12/02/16 12/02/16 12/02/16 04:00 04:00 05:00 05:52 Temp 100.2 100.2 Pulse 62 62 Resp 22 26 B/P (MAP) 105/52 (69) 115/57 (76) Pulse Ox 100 100 100 O2 Delivery Ventilator Mechanical Ventilator Ventilator Ventilator 12/02/16 12/02/16 12/02/16 12/02/16 06:00 07:00 07:11 07:33 Temp 99.2 99.2 Pulse 62 65 Resp 26 21 B/P (MAP) 129/59 (82) 117/64 (81) Pulse Ox 100 100 100 100 O2 Delivery Ventilator Ventilator Ventilator Ventilator 12/02/16 12/02/16 12/02/16 12/02/16 08:00 08:00 08:01 08:57 Temp 98.7 98.7 Pulse 74 Resp 34 B/P (MAP) 132/55 (80) Pulse Ox 100 100 100 O2 Delivery Ventilator Mechanical Ventilator Ventilator Ventilator 12/02/16 12/02/16 09:00 10:00 Pulse 65 67 Resp 18 30 B/P (MAP) 101/54 (70) 101/62 (75) Pulse Ox 100 100 O2 Delivery Ventilator Ventilator Intake and Output 12/01/16 12/01/16 12/02/16 15:00 23:00 07:00 Intake Total 393 ml 1367 ml 790 ml Output Total 500 ml 850 ml 400 ml Balance -107 ml 517 ml 390 ml HENRIK YORK MD Dec 02, 2016 11:20
[2016-12-02] MEDS: ACETAMINOPHEN 500 MG TABLET PO PRN ×2 (12:24→20:51)
[2016-12-02] MEDS: ATORVASTATIN CALCIUM 10 MG TABLET. PO SCH (20:51)
[2016-12-02] MEDS: PROPOFOL 100 ML IV PRN (21:08)
[2016-12-03] VITALS (24 sets, daily range): BP systolic 94–128; BP diastolic 49–69
[2016-12-03] MEDS: MEROPENEM 500 MG in IV NORMAL SALINE 50ML 50 ML IV SCH ×3 (06:13→22:04)
[2016-12-03 06:42] LABS: BASO % 0 % (0-3); EOS % 1 % (0-3); HEMATOCRIT 28.2 % (39.0-53.0); HEMOGLOBIN 9.9 g/dL (13.0-17.5); LYMPH # 0.9 x10^3/uL (1.0-4.8); LYMPH % 8 % (24-48); MEAN CORPUSCULAR HEMOGLOBIN 34 pg (25-35); MEAN CORPUSCULAR HGB CONC 35 g/dL (31-37); MEAN CORPUSCULAR VOLUME 96 fL (79-100); MONO % 14 % (0-9); NEUT % 76 % (31-73); PLATELET COUNT 260 x10^3/uL (140-400); RED BLOOD COUNT 2.93 x10^6/uL (4.30-5.70); RED CELL DISTRIBUTION WIDTH 13.9 % (11.5-14.5); WHITE BLOOD COUNT 10.2 x10^3/uL (4.0-11.0)
[2016-12-03 06:49] LABS: ALBUMIN 1.8 g/dL (3.4-5.0); ALBUMIN/GLOBULIN RATIO 0.6 (1.0-1.7); CALCIUM 8.6 mg/dL (8.5-10.1); CREATININE 0.7 mg/dL (0.7-1.3); GFR 107.2; POTASSIUM 4.2 mmol/L (3.5-5.1); TOTAL BILIRUBIN 0.5 mg/dL (0.2-1.0)
--- NOTE | 2016-12-03 07:38 | PDOC ---
Infectious Disease Note Subjective Subjective Remains intubated. FiO2 30% TPN Fever low grade ROS ROS unable to do Vital Sign Vital Signs Vital Signs Date Time Temp Pulse Resp B/P (MAP) Pulse Ox O2 Delivery O2 Flow Rate FiO2 12/03/16 06:00 99.8 60 24 124/65 (84) 100 Ventilator 99.8 Physical Exam PHYSICAL EXAM GENERAL: alert on vent HEENT: PERRL, OC/OP NECK: Supple, no JVD, no LN LUNGS: Clear HEART: S1S2, no gallop, no murmur ABD: Soft, NT, no organomegaly, no rebound EXT: No edema, no cyanosis MOBILE APPLICATION DEVELOPMENT LEAD: on vent SKIN: No rash IV: ok Labs Lab Laboratory Tests Test 12/03/16 06:20 White Blood Count 10.2 x10^3/uL (4.0-11.0) Red Blood Count 2.93 x10^6/uL (4.30-5.70) Hemoglobin 9.9 g/dL (13.0-17.5) Hematocrit 28.2 % (39.0-53.0) Mean Corpuscular Volume 96 fL (79-100) Mean Corpuscular Hemoglobin 34 pg (25-35) Mean Corpuscular Hemoglobin Concent 35 g/dL (31-37) Red Cell Distribution Width 13.9 % (11.5-14.5) Platelet Count 260 x10^3/uL (140-400) Neutrophils (%) (Auto) 76 % (31-73) Lymphocytes (%) (Auto) 8 % (24-48) Monocytes (%) (Auto) 14 % (0-9) Eosinophils (%) (Auto) 1 % (0-3) Basophils (%) (Auto) 0 % (0-3) Neutrophils # (Auto) 7.7 x10^3uL (1.8-7.7) Lymphocytes # (Auto) 0.9 x10^3/uL (1.0-4.8) Monocytes # (Auto) 1.5 x10^3/uL (0.0-1.1) Eosinophils # (Auto) 0.1 x10^3/uL (0.0-0.7) Basophils # (Auto) 0.0 x10^3/uL (0.0-0.2) Sodium Level 138 mmol/L (136-145) Potassium Level 4.2 mmol/L (3.5-5.1) Chloride Level 106 mmol/L (98-107) Carbon Dioxide Level 30 mmol/L (21-32) Anion Gap 2 (6-14) Blood Urea Nitrogen 26 mg/dL (8-26) Creatinine 0.7 mg/dL (0.7-1.3) Estimated GFR (Cockcroft-Gault) 107.2 BUN/Creatinine Ratio 37 (6-20) Glucose Level 108 mg/dL (70-99) Calcium Level 8.6 mg/dL (8.5-10.1) Total Bilirubin 0.5 mg/dL (0.2-1.0) Aspartate Amino Transf (AST/SGOT) 85 U/L (15-37) Alanine Aminotransferase (ALT/SGPT) 231 U/L (16-63) Alkaline Phosphatase 161 U/L (46-116) Total Protein 5.0 g/dL (6.4-8.2) Albumin 1.8 g/dL (3.4-5.0) Albumin/Globulin Ratio 0.6 (1.0-1.7) Objective Assessment Fever, Leukocytosis, stable Aspiration pneumonia. s/p bronch 11/22. GS: GPC & yeast. Final cx yeast only. 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 Acute respiratory failure Anemia s/p PRBCs 11/27 Pacemaker Dementia Plan Plan of Care Meropenem (started 11/26) Monitor labs Supportive care extubation today JANES BEJARANO MD Dec 03, 2016 07:38
[2016-12-03] MEDS: FAMOTIDINE 20 MG/2 ML VIAL IVP SCH ×2 (08:34→22:04)
[2016-12-03] MEDS: CHLORHEXIDINE 0.12% 15 ML MOUTHWASH. MM SCH ×2 (08:34→20:54)
[2016-12-03] MEDS: ENOXAPARIN 40 MG/0.4 ML SYRINGE. SQ SCH (08:35)
[2016-12-03] MEDS: DUTASTERIDE 0.5 MG CAPSULE PO SCH (08:38)
[2016-12-03] MEDS: IPRATRPIUM/ALBUTEROL 0.5/2.5MG 3 ML NEBU. NEB SCH ×4 (08:49→19:27)
[2016-12-03 09:46] LABS: HCO3 ABG 26 mmol/L (21-28); PCO2 ABG 36 mmHg (35-46); PH ABG 7.48 (7.35-7.45); PO2 ABG 82 mmHg (65-108); SAT O2 ABG 95 % (92-99)
[2016-12-03 09:48] LABS: FIO2 ABG 30
--- NOTE | 2016-12-03 09:51 | PDOC ---
PROGRESS NOTES Chief Complaint Chief Complaint hematemesis, GI bleed, upper, req. surgery on admit ASSESSMENT AND PLAN: 1. 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 2. Acute respiratory failure: On mechanical ventilation, aspiration pneumonia. sputum cx + GNR. on zyvox and meropenum with ID 3. Leukocytosis 4. Hx Arrhythmia NOS: hx pacer placement 5. Prophylaxis: SCDs; 6. 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 7. hypophosphatemia: 8. DNR now, on vent 9. OMARI, 10. moderate malnutrition, not POA History of Present Illness History of Present Illness Seen in ICU, intubated, sedated, weaning well from vent and daughter in room, he is responding to them follows commands well, seems calm plan to wean vent pt and ot as awakening palliative got involved last week, , now DNR will try to extubate later, ABG looked excellent on 09/07 trial still on TPN Vitals Vitals Vital Signs Date Time Temp Pulse Resp B/P (MAP) Pulse Ox O2 Delivery O2 Flow Rate FiO2 12/03/16 09:05 Ventilator 12/03/16 08:30 100 12/03/16 08:00 99.0 65 30 122/63 (82) 99.0 Physical Exam Physical Exam intubated ,sedated General: No acute distress, Other (opens eyes) Heart: Regular rate, Normal S1, Normal S2 Lungs: Crackles Abdomen: Soft, Other (lower portion of incision with some drainage(serous), mild erythema, no induration or fluctunace, g tube in place) Extremities: No clubbing, No cyanosis Skin: No rashes, No breakdown Labs LABS Laboratory Tests Test 12/03/16 06:20 White Blood Count 10.2 x10^3/uL (4.0-11.0) Red Blood Count 2.93 x10^6/uL (4.30-5.70) Hemoglobin 9.9 g/dL (13.0-17.5) Hematocrit 28.2 % (39.0-53.0) Mean Corpuscular Volume 96 fL (79-100) Mean Corpuscular Hemoglobin 34 pg (25-35) Mean Corpuscular Hemoglobin Concent 35 g/dL (31-37) Red Cell Distribution Width 13.9 % (11.5-14.5) Platelet Count 260 x10^3/uL (140-400) Neutrophils (%) (Auto) 76 % (31-73) Lymphocytes (%) (Auto) 8 % (24-48) Monocytes (%) (Auto) 14 % (0-9) Eosinophils (%) (Auto) 1 % (0-3) Basophils (%) (Auto) 0 % (0-3) Neutrophils # (Auto) 7.7 x10^3uL (1.8-7.7) Lymphocytes # (Auto) 0.9 x10^3/uL (1.0-4.8) Monocytes # (Auto) 1.5 x10^3/uL (0.0-1.1) Eosinophils # (Auto) 0.1 x10^3/uL (0.0-0.7) Basophils # (Auto) 0.0 x10^3/uL (0.0-0.2) Sodium Level 138 mmol/L (136-145) Potassium Level 4.2 mmol/L (3.5-5.1) Chloride Level 106 mmol/L (98-107) Carbon Dioxide Level 30 mmol/L (21-32) Anion Gap 2 (6-14) Blood Urea Nitrogen 26 mg/dL (8-26) Creatinine 0.7 mg/dL (0.7-1.3) Estimated GFR (Cockcroft-Gault) 107.2 BUN/Creatinine Ratio 37 (6-20) Glucose Level 108 mg/dL (70-99) Calcium Level 8.6 mg/dL (8.5-10.1) Total Bilirubin 0.5 mg/dL (0.2-1.0) Aspartate Amino Transf (AST/SGOT) 85 U/L (15-37) Alanine Aminotransferase (ALT/SGPT) 231 U/L (16-63) Alkaline Phosphatase 161 U/L (46-116) Total Protein 5.0 g/dL (6.4-8.2) Albumin 1.8 g/dL (3.4-5.0) Albumin/Globulin Ratio 0.6 (1.0-1.7) Review of Systems Review of Systems unable Assessment and Plan Assessmemt and Plan discussed with family Problems Medical Problems: (1) Upper GI bleeding Status: Acute Problems: Comment Review of Relevant I have reviewed the following items cordell (where applicable) has been applied. Labs Laboratory Tests Test 12/03/16 06:20 White Blood Count 10.2 x10^3/uL (4.0-11.0) Red Blood Count 2.93 x10^6/uL (4.30-5.70) Hemoglobin 9.9 g/dL (13.0-17.5) Hematocrit 28.2 % (39.0-53.0) Mean Corpuscular Volume 96 fL (79-100) Mean Corpuscular Hemoglobin 34 pg (25-35) Mean Corpuscular Hemoglobin Concent 35 g/dL (31-37) Red Cell Distribution Width 13.9 % (11.5-14.5) Platelet Count 260 x10^3/uL (140-400) Neutrophils (%) (Auto) 76 % (31-73) Lymphocytes (%) (Auto) 8 % (24-48) Monocytes (%) (Auto) 14 % (0-9) Eosinophils (%) (Auto) 1 % (0-3) Basophils (%) (Auto) 0 % (0-3) Neutrophils # (Auto) 7.7 x10^3uL (1.8-7.7) Lymphocytes # (Auto) 0.9 x10^3/uL (1.0-4.8) Monocytes # (Auto) 1.5 x10^3/uL (0.0-1.1) Eosinophils # (Auto) 0.1 x10^3/uL (0.0-0.7) Basophils # (Auto) 0.0 x10^3/uL (0.0-0.2) Sodium Level 138 mmol/L (136-145) Potassium Level 4.2 mmol/L (3.5-5.1) Chloride Level 106 mmol/L (98-107) Carbon Dioxide Level 30 mmol/L (21-32) Anion Gap 2 (6-14) Blood Urea Nitrogen 26 mg/dL (8-26) Creatinine 0.7 mg/dL (0.7-1.3) Estimated GFR (Cockcroft-Gault) 107.2 BUN/Creatinine Ratio 37 (6-20) Glucose Level 108 mg/dL (70-99) Calcium Level 8.6 mg/dL (8.5-10.1) Total Bilirubin 0.5 mg/dL (0.2-1.0) Aspartate Amino Transf (AST/SGOT) 85 U/L (15-37) Alanine Aminotransferase (ALT/SGPT) 231 U/L (16-63) Alkaline Phosphatase 161 U/L (46-116) Total Protein 5.0 g/dL (6.4-8.2) Albumin 1.8 g/dL (3.4-5.0) Albumin/Globulin Ratio 0.6 (1.0-1.7) Laboratory Tests Test 12/03/16 06:20 White Blood Count 10.2 x10^3/uL (4.0-11.0) Red Blood Count 2.93 x10^6/uL (4.30-5.70) Hemoglobin 9.9 g/dL (13.0-17.5) Hematocrit 28.2 % (39.0-53.0) Mean Corpuscular Volume 96 fL (79-100) Mean Corpuscular Hemoglobin 34 pg (25-35) Mean Corpuscular Hemoglobin Concent 35 g/dL (31-37) Red Cell Distribution Width 13.9 % (11.5-14.5) Platelet Count 260 x10^3/uL (140-400) Neutrophils (%) (Auto) 76 % (31-73) Lymphocytes (%) (Auto) 8 % (24-48) Monocytes (%) (Auto) 14 % (0-9) Eosinophils (%) (Auto) 1 % (0-3) Basophils (%) (Auto) 0 % (0-3) Neutrophils # (Auto) 7.7 x10^3uL (1.8-7.7) Lymphocytes # (Auto) 0.9 x10^3/uL (1.0-4.8) Monocytes # (Auto) 1.5 x10^3/uL (0.0-1.1) Eosinophils # (Auto) 0.1 x10^3/uL (0.0-0.7) Basophils # (Auto) 0.0 x10^3/uL (0.0-0.2) Sodium Level 138 mmol/L (136-145) Potassium Level 4.2 mmol/L (3.5-5.1) Chloride Level 106 mmol/L (98-107) Carbon Dioxide Level 30 mmol/L (21-32) Anion Gap 2 (6-14) Blood Urea Nitrogen 26 mg/dL (8-26) Creatinine 0.7 mg/dL (0.7-1.3) Estimated GFR (Cockcroft-Gault) 107.2 BUN/Creatinine Ratio 37 (6-20) Glucose Level 108 mg/dL (70-99) Calcium Level 8.6 mg/dL (8.5-10.1) Total Bilirubin 0.5 mg/dL (0.2-1.0) Aspartate Amino Transf (AST/SGOT) 85 U/L (15-37) Alanine Aminotransferase (ALT/SGPT) 231 U/L (16-63) Alkaline Phosphatase 161 U/L (46-116) Total Protein 5.0 g/dL (6.4-8.2) Albumin 1.8 g/dL (3.4-5.0) Albumin/Globulin Ratio 0.6 (1.0-1.7) Microbiology 11/25/16 Blood Culture - Final, Complete NO GROWTH AFTER 5 DAYS 11/24/16 Gram Stain - Final, Complete 11/19/16 Urine Culture - Final, Complete 11/19/16 Urine Culture Result 1 ([facility]) - Final, Complete Medications Current Medications Sodium Chloride 1,000 ml @ 1,000 mls/hr 1X ONCE IV Last administered on 20:55; Start 11/19/16 at 20:45; Stop 11/19/16 at 21:44; Status DC Famotidine (Pepcid) 40 mg 1X ONCE IVP Last administered on 11/19/16 21:54; Start 11/19/16 at 21:30; Stop 11/19/16 at 21:31; Status DC Ondansetron HCl (Zofran) 4 mg PRN Q8HRS PRN IV NAUSEA/VOMITING Last administered on 11/19/16 21:54; Start 11/19/16 at 21:45; Stop 11/20/16 at 10:44 ; Status DC Morphine Sulfate 2 mg PRN Q2HR PRN IV PAIN; Start 11/19/16 at 21:45; Stop 11/20 at 21:44; Status DC Sodium Chloride 1,000 ml @ 110 mls/hr Q9H6M IV Last administered on 11/20/16 17:53; Start 11/19/16 at 21:41; Stop 11/20/16 at 21:40; Status DC Ondansetron HCl (Zofran) 4 mg PRN Q6HRS PRN IV NAUSEA/VOMITING; Start 11/20/16 at 10:42; Stop 11/21/16 at 10:41; Status DC Famotidine (Pepcid) 20 mg BID IVP Last administered on 12/03/16 08:34; Start 11/20/16 at 11:00 Atorvastatin Calcium (Lipitor) 10 mg QHS PO Last administered on 12/02/16 20: 51; Start 11/20/16 at 21:00 Dutasteride (Avodart) 0.5 mg DAILY PO ; Start 11/20/16 at 11:00 Labetalol HCl (Normodyne) 10 mg PRN Q2HR PRN IVP HYPERTENSION, SEE COMMENTS; Start 11/20/16 at 10:45 Acetaminophen (Tylenol) 500 mg PRN Q6HRS PRN PO MILD PAIN / TEMP Last administered on 12/02/16 20:51; Start 11/20/16 at 10:45 Ondansetron HCl (Zofran) 4 mg PRN Q6HRS PRN IV NAUSEA/VOMITING; Start 11/21/16 at 07:00; Stop 11/22/16 at 06:59; Status DC Fentanyl Citrate (Fentanyl 2ml Vial) 25 mcg PRN Q5MIN PRN IV MILD PAIN; Start 11/21/16 at 07:00; Stop 11/22/16 at 06:59; Status DC Fentanyl Citrate (Fentanyl 2ml Vial) 50 mcg PRN Q5MIN PRN IV MODERATE PAIN; Start 11/21/16 at 07:00; Stop 11/22/16 at 06:59; Status DC Morphine Sulfate 1 mg PRN Q10MIN PRN IV SEVERE PAIN; Start 11/21/16 at 07:00; Stop 11/22/16 at 06:59; Status DC Ringer's Solution 1,000 ml @ 30 mls/hr Q24H IV ; Start 11/21/16 at 07:00; Stop 11/21/16 at 18:59; Status DC Lidocaine HCl 2 ml PRN 1X PRN ID PRIOR TO IV START; Start 11/21/16 at 07:00; Stop 11/22/16 at 06:59; Status DC Hydromorphone HCl (Dilaudid) 0.5 mg PRN Q10MIN PRN IV SEV PAIN, Second choice; Start 11/21/16 at 07:00; Stop 11/22/16 at 06:59; Status DC Prochlorperazine Edisylate (Compazine) 5 mg PACU PRN PRN IV NAUSEA, MRX1; Start 11/21/16 at 07:00; Stop 11/22/16 at 06:59; Status DC Hydralazine HCl (Apresoline) 10 mg PRN Q4HRS PRN IVP ELEVATED BP, SEE COMMENTS ; Start 11/20/16 at 15:30 Propofol 20 ml @ As Directed STK-MED ONCE IV ; Start 11/21/16 at 07:20; Stop at 07:21; Status DC Lidocaine HCl (Lidocaine Pf 2% Vial) 5 ml STK-MED ONCE .ROUTE ; Start 11/21/16 at 07:20; Stop 11/21/16 at 07:21; Status DC Ondansetron HCl (Zofran) 4 mg STK-MED ONCE .ROUTE ; Start 11/21/16 at 07:20; Stop 11/21/16 at 07:21; Status DC Dexamethasone Sodium Phosphate (Decadron) 20 mg STK-MED ONCE .ROUTE ; Start at 07:20; Stop 11/21/16 at 07:21; Status DC Phenylephrine HCl 1 mg STK-MED ONCE IV ; Start 11/21/16 at 07:21; Stop 11/21/16 at 07:22; Status DC Ephedrine Sulfate 50 mg STK-MED ONCE IV ; Start 11/21/16 at 07:21; Stop at 07:22; Status DC Fentanyl Citrate (Fentanyl 5ml Vial) 250 mcg STK-MED ONCE .ROUTE ; Start at 07:21; Stop 11/21/16 at 07:22; Status DC Rocuronium Line [place] (Zemuron) 50 mg STK-MED ONCE .ROUTE ; Start 11/21/16 at 07:22 ; Stop 11/21/16 at 07:23; Status DC Famotidine (Pepcid) 20 mg STK-MED ONCE .ROUTE ; Start 11/21/16 at 07:23; Stop at 07:24; Status DC Cellulose 1 each STK-MED ONCE .ROUTE Last administered on 11/21/16 10:29; Start 11/21/16 at 07:33; Stop 11/21/16 at 07:34; Status DC Bupivacaine HCl/ Epinephrine Bitart (Marcaine-Epi 0.5%-[id number]) 50 ml STK-MED ONCE .ROUTE Last administered on 11/21/16 08:43; Start 11/21/16 at 07:34; Stop 11/21/16 at 07:35; Status DC Cefazolin Sodium/ Dextrose 50 ml @ 100 mls/hr 1X PREOP ONCE IV Last administered on 11/21/16 08:25; Start 11/21/16 at 07:37; Stop 11/21/16 at 08:06 ; Status DC Succinylcholine Chloride (Anectine) 200 mg STK-MED ONCE .ROUTE ; Start 11/21/16 at 07:59; Stop 11/21/16 at 08:00; Status DC Sevoflurane (Ultane) 90 ml STK-MED ONCE IH ; Start 11/21/16 at 09:24; Stop 11/21 at 09:25; Status DC Rocuronium Line [place] (Zemuron) 50 mg STK-MED ONCE .ROUTE ; Start 11/21/16 at 09:25 ; Stop 11/21/16 at 09:26; Status DC Cellulose 1 each STK-MED ONCE .ROUTE ; Start 11/21/16 at 10:11; Stop 11/21/16 at 10:12; Status DC Sodium Bicarbonate 50 meq STK-MED ONCE .ROUTE ; Start 11/21/16 at 10:34; Stop at 10:35; Status DC Rocuronium Line [place] (Zemuron) 50 mg STK-MED ONCE .ROUTE ; Start 11/21/16 at 11:00 ; Stop 11/21/16 at 11:01; Status DC Sevoflurane (Ultane) 90 ml STK-MED ONCE IH ; Start 11/21/16 at 12:46; Stop 11/21 at 12:47; Status DC Piperacillin Sod/ Tazobactam Sod 3.375 gm/Sodium Chloride 50 ml @ 100 mls/hr Q6HRS IV Last administered on 11/26/16 11:40; Start 11/21/16 at 14:00; Stop at 14:43; Status DC Fentanyl Citrate (Fentanyl 2ml Vial) 25 mcg PRN Q2HR PRN IV PAIN Last administered on 11/24/16 02:49; Start 11/21/16 at 13:30; Stop 11/25/16 at 12:11 ; Status DC Fentanyl Citrate (Fentanyl 2ml Vial) 50 mcg PRN Q2HR PRN IV PAIN Last administered on 11/23/16 09:50; Start 11/21/16 at 13:30; Stop 11/25/16 at 12:11 ; Status DC Propofol 100 ml @ 0 mls/hr CONT PRN IV PER PROTOCOL Last administered on 21:08; Start 11/21/16 at 13:30 Fentanyl Citrate (Fentanyl 2ml Vial) 25 mcg PRN Q1HR PRN IV COMM Last administered on 11/27/16 06:03; Start 11/21/16 at 13:30 Fentanyl Citrate (Fentanyl 2ml Vial) 50 mcg PRN Q1HR PRN IV COMM Last administered on 11/26/16 23:08; Start 11/21/16 at 13:30 Chlorhexidine Gluconate (Peridex) 15 ml BID MM Last administered on 12/03/16 08:34; Start 11/21/16 at 21:00 Potassium Chloride/Dextrose/ Sod Cl 1,000 ml @ 100 mls/hr Q10H IV Last administered on 11/25/16 08:55; Start 11/21/16 at 15:00; Stop 11/25/16 at 21:59 ; Status DC Albuterol/ Ipratropium (Duoneb) 3 ml RTQID NEB Last administered on 12/03/16 08:49; Start 11/23/16 at 16:00 Amino Acids/ Glycerin/ Electrolytes 1,000 ml @ 80 mls/hr [id number] IV ; Start at 16:15; Stop 11/23/16 at 18:21; Status DC Amino Acids/ Glycerin/ Electrolytes 1,000 ml @ 80 mls/hr [id number] IV Last administered on 11/24/16 08:00; Start 11/23/16 at 21:00; Stop 11/24/16 at 13:45 ; Status DC Amino Acids/ Glycerin/ Electrolytes 1,000 ml @ 80 mls/hr [id number] IV Last administered on 11/25/16 08:22; Start 11/25/16 at 08:00; Stop 11/25/16 at 21:59 ; Status DC Linezolid 300 ml @ 300 mls/hr Q12HR IV Last administered on 11/28/16 09:12; Start 11/25/16 at 10:00; Stop 11/28/16 at 12:42; Status DC Info 1 each PRN DAILY PRN MC SEE COMMENTS Last administered on 11/30/16 13:53 ; Start 11/25/16 at 11:15; Stop 12/01/16 at 09:11; Status DC Sodium Acetate 90 meq/Potassium Chloride 50 meq/ Potassium Phosphate 13.6 mmol/ Magnesium Sulfate 10 meq/ Calcium Gluconate 10 meq/ Multivitamins 10 ml/Chromium / Copper/Manganese/ Seleni/Zn 1 ml/ Total Parenteral Nutrition/Amino Acids/ Dextrose 1,512 ml @ 63 mls/hr TPN CONT IV Last administered on 11/25/16 22: 04; Start 11/25/16 at 22:00; Stop 11/26/16 at 21:59; Status DC Sodium Chloride 45 meq/Sodium Acetate 45 meq/ Potassium Chloride 50 meq/ Potassium Phosphate 17 mmol/ Magnesium Sulfate 16 meq/Calcium Gluconate 14 meq/ Multivitamins 10 ml/Chromium/ Copper/Manganese/ Seleni/Zn 1 ml/ Total Parenteral Nutrition/Amino Acids/Dextrose 1,512 ml @ 63 mls/hr TPN CONT IV Last administered on 11/26/16 21:01; Start 11/26/16 at 22:00; Stop 11/27/16 at 21:59; Status DC Potassium Phosphate 10 mmol/ Sodium Chloride 103.3333 ml @ 51.667 m... Q2H IV Last administered on 11/26/16 14:54; Start 11/26/16 at 13:30; Stop 11/26/16 at 17:29; Status DC Meropenem 500 mg/ Sodium Chloride 50 ml @ 100 mls/hr Q8HRS IV Last administered on 12/03/16 06:13; Start 11/26/16 at 15:00 Potassium Chloride/Dextrose/ Sod Cl 1,000 ml @ 37 mls/hr Q24H IV Last administered on 11/30/16 19:40; Start 11/26/16 at 20:00; Stop 12/01/16 at 09:11 ; Status DC Sodium Chloride 45 meq/Sodium Acetate 45 meq/ Potassium Chloride 50 meq/ Potassium Phosphate 17 mmol/ Magnesium Sulfate 12 meq/Calcium Gluconate 12 meq/ Multivitamins 10 ml/Chromium/ Copper/Manganese/ Seleni/Zn 1 ml/ Total Parenteral Nutrition/Amino Acids/Dextrose/ Fat Emulsion Intravenous 1,512 ml @ 63 mls/hr TPN CONT IV Last administered on 11/27/16 22:11; Start 11/27/16 at 22:00; Stop 11/28/16 at 21:59; Status DC Sodium Chloride 45 meq/Sodium Acetate 45 meq/ Potassium Chloride 50 meq/ Potassium Phosphate 17 mmol/ Magnesium Sulfate 12 meq/Calcium Gluconate 10 meq/ Multivitamins 10 ml/Chromium/ Copper/Manganese/ Seleni/Zn 1 ml/ Total Parenteral Nutrition/Amino Acids/Dextrose 1,512 ml @ 63 mls/hr TPN CONT IV Last administered on 11/28/16 21:35; Start 11/28/16 at 22:00; Stop 11/29/16 at 21:59; Status DC Sodium Chloride 45 meq/Sodium Acetate 45 meq/ Potassium Chloride 50 meq/ Potassium Phosphate 17 mmol/ Magnesium Sulfate 12 meq/ Multivitamins 10 ml/ Chromium/ Copper/Manganese/ Seleni/Zn 1 ml/ Total Parenteral Nutrition/Amino Acids/Dextrose 1,512 ml @ 63 mls/hr TPN CONT IV Last administered on 23:23; Start 11/29/16 at 22:00; Stop 11/30/16 at 21:59; Status DC Enoxaparin Sodium (Lovenox 40mg Syringe) 40 mg Q24H SQ Last administered on 08:35; Start 11/30/16 at 10:00 Sodium Chloride 45 meq/Sodium Acetate 45 meq/ Potassium Chloride 50 meq/ Potassium Phosphate 17 mmol/ Magnesium Sulfate 12 meq/ Multivitamins 10 ml/ Chromium/ Copper/Manganese/ Seleni/Zn 1 ml/ Total Parenteral Nutrition/Amino Acids/Dextrose 1,512 ml @ 63 mls/hr TPN CONT IV Last administered on 7/28/ 17at 21:31; Start 11/30/16 at 22:00; Stop 12/01/16 at 21:59; Status DC Active Scripts Active Reported Aspir 81 (Aspirin) 81 Mg Tablet.dr 81 Mg PO DAILY Atorvastatin Calcium 10 Mg Tablet 1 Tab PO DAILY Aspirin 81 Mg Tab.chew 1 Tab PO DAILY Avodart (Dutasteride) 0.5 Mg Capsule 1 Cap PO DAILY Vitals/I & O Vital Sign - Last 24 Hours 12/02/16 12/02/16 12/02/16 12/02/16 10:00 11:00 11:21 11:48 Pulse 67 66 Resp 30 27 B/P (MAP) 101/62 (75) 106/52 (70) Pulse Ox 100 100 100 100 O2 Delivery Ventilator Ventilator Ventilator Ventilator 12/02/16 12/02/16 12/02/16 12/02/16 11:50 12:00 12:00 13:00 Temp 99.7 99.7 Pulse 65 60 Resp 25 20 B/P (MAP) 94/48 (63) 101/51 (68) Pulse Ox 100 100 100 O2 Delivery Ventilator Mechanical Ventilator Ventilator Ventilator 12/02/16 12/02/16 12/02/16 12/02/16 13:03 13:40 15:00 15:07 Pulse 60 62 Resp 22 20 B/P (MAP) 98/52 (67) 111/64 (80) Pulse Ox 100 100 100 100 O2 Delivery Ventilator Ventilator Ventilator Ventilator 12/02/16 12/02/16 12/02/16 12/02/16 15:41 15:47 16:54 16:59 Temp 99.3 99.3 99.3 99.3 Pulse 61 60 Resp 20 23 B/P (MAP) 103/56 (72) 128/63 (84) Pulse Ox 100 100 100 O2 Delivery Ventilator Mechanical Ventilator Ventilator Ventilator 12/02/16 12/02/16 12/02/16 12/02/16 17:59 19:00 19:37 20:00 Pulse 60 60 Resp 20 23 B/P (MAP) 102/52 (69) 106/56 (73) Pulse Ox 100 100 100 O2 Delivery Ventilator Ventilator Ventilator Mechanical Ventilator 12/02/16 12/02/16 12/02/16 12/02/16 20:00 21:00 22:00 22:49 Temp 99.4 100.2 99.4 100.2 Pulse 67 60 62 Resp 25 23 22 B/P (MAP) 99/54 (69) 151/59 (89) 149/67 (94) Pulse Ox 100 100 100 100 O2 Delivery Ventilator Ventilator Ventilator Ventilator 12/02/16 12/03/16 12/03/16 12/03/16 23:00 00:00 00:00 01:00 Temp 99.1 100.1 99.1 100.1 Pulse 60 61 60 Resp 22 22 22 B/P (MAP) 118/65 (82) 102/57 (72) 116/54 (74) Pulse Ox 100 100 100 O2 Delivery Ventilator Ventilator Mechanical Ventilator Ventilator 12/03/16 12/03/16 12/03/16 12/03/16 01:14 02:00 03:00 03:50 Pulse 60 60 Resp 22 24 B/P (MAP) 118/60 (79) 124/65 (84) Pulse Ox 100 100 100 100 O2 Delivery Ventilator Ventilator Ventilator Ventilator 12/03/16 12/03/16 12/03/16 12/03/16 04:00 04:00 05:00 05:41 Temp 100.1 100.1 Pulse 61 60 Resp 22 B/P (MAP) 113/57 (75) 114/64 (81) Pulse Ox 100 100 100 O2 Delivery Ventilator Mechanical Ventilator Ventilator Ventilator 12/03/16 12/03/16 12/03/16 12/03/16 06:00 07:00 08:00 08:00 Temp 99.8 99.0 99.8 99.0 Pulse 60 66 65 Resp 24 25 30 B/P (MAP) 124/65 (84) 119/65 (83) 122/63 (82) Pulse Ox 100 100 98 O2 Delivery Ventilator Ventilator Mechanical Ventilator Ventilator 12/03/16 12/03/16 08:30 09:05 Pulse Ox 100 O2 Delivery Ventilator Ventilator Intake and Output 12/02/16 12/02/16 12/03/16 15:00 23:00 07:00 Intake Total 105 ml 679 ml 1100 ml Output Total 920 ml 345 ml 2350 ml Balance -815 ml 334 ml -1250 ml LUX FOREMAN MD Dec 03, 2016 09:51
--- NOTE | 2016-12-03 10:13 | PDOC ---
PULMONARY PROGRESS NOTES Subjective PT EXTUBATED AWAKE AND ALERT AT TIMES CONFUSED Vitals Vital Signs Date Time Temp Pulse Resp B/P (MAP) Pulse Ox O2 Delivery O2 Flow Rate FiO2 12/03/16 09:05 Ventilator 12/03/16 09:00 65 26 114/54 (74) 97 12/03/16 08:00 99.0 99.0 HEENT: Other Lungs: Clear Cardiovascular: S1, S2 Abdomen: Soft, Non-tender, Other Neuro Exam: Alert Extremities: No Edema Skin: Warm Labs Laboratory Tests Test 12/03/16 06:20 12/03/16 09:40 White Blood Count 10.2 x10^3/uL (4.0-11.0) Red Blood Count 2.93 x10^6/uL (4.30-5.70) Hemoglobin 9.9 g/dL (13.0-17.5) Hematocrit 28.2 % (39.0-53.0) Mean Corpuscular Volume 96 fL (79-100) Mean Corpuscular Hemoglobin 34 pg (25-35) Mean Corpuscular Hemoglobin Concent 35 g/dL (31-37) Red Cell Distribution Width 13.9 % (11.5-14.5) Platelet Count 260 x10^3/uL (140-400) Neutrophils (%) (Auto) 76 % (31-73) Lymphocytes (%) (Auto) 8 % (24-48) Monocytes (%) (Auto) 14 % (0-9) Eosinophils (%) (Auto) 1 % (0-3) Basophils (%) (Auto) 0 % (0-3) Neutrophils # (Auto) 7.7 x10^3uL (1.8-7.7) Lymphocytes # (Auto) 0.9 x10^3/uL (1.0-4.8) Monocytes # (Auto) 1.5 x10^3/uL (0.0-1.1) Eosinophils # (Auto) 0.1 x10^3/uL (0.0-0.7) Basophils # (Auto) 0.0 x10^3/uL (0.0-0.2) Sodium Level 138 mmol/L (136-145) Potassium Level 4.2 mmol/L (3.5-5.1) Chloride Level 106 mmol/L (98-107) Carbon Dioxide Level 30 mmol/L (21-32) Anion Gap 2 (6-14) Blood Urea Nitrogen 26 mg/dL (8-26) Creatinine 0.7 mg/dL (0.7-1.3) Estimated GFR (Cockcroft-Gault) 107.2 BUN/Creatinine Ratio 37 (6-20) Glucose Level 108 mg/dL (70-99) Calcium Level 8.6 mg/dL (8.5-10.1) Total Bilirubin 0.5 mg/dL (0.2-1.0) Aspartate Amino Transf (AST/SGOT) 85 U/L (15-37) Alanine Aminotransferase (ALT/SGPT) 231 U/L (16-63) Alkaline Phosphatase 161 U/L (46-116) Total Protein 5.0 g/dL (6.4-8.2) Albumin 1.8 g/dL (3.4-5.0) Albumin/Globulin Ratio 0.6 (1.0-1.7) O2 Saturation 95 % (92-99) Arterial Blood pH 7.48 (7.35-7.45) Arterial Blood pCO2 at Patient Temp 36 mmHg (35-46) Arterial Blood pO2 at Patient Temp 82 mmHg (65-108) Arterial Blood HCO3 26 mmol/L (21-28) Arterial Blood Base Excess 3 mmol/L (-3-3) FiO2 30 Laboratory Tests Test 12/03/16 06:20 12/03/16 09:40 White Blood Count 10.2 x10^3/uL (4.0-11.0) Red Blood Count 2.93 x10^6/uL (4.30-5.70) Hemoglobin 9.9 g/dL (13.0-17.5) Hematocrit 28.2 % (39.0-53.0) Mean Corpuscular Volume 96 fL (79-100) Mean Corpuscular Hemoglobin 34 pg (25-35) Mean Corpuscular Hemoglobin Concent 35 g/dL (31-37) Red Cell Distribution Width 13.9 % (11.5-14.5) Platelet Count 260 x10^3/uL (140-400) Neutrophils (%) (Auto) 76 % (31-73) Lymphocytes (%) (Auto) 8 % (24-48) Monocytes (%) (Auto) 14 % (0-9) Eosinophils (%) (Auto) 1 % (0-3) Basophils (%) (Auto) 0 % (0-3) Neutrophils # (Auto) 7.7 x10^3uL (1.8-7.7) Lymphocytes # (Auto) 0.9 x10^3/uL (1.0-4.8) Monocytes # (Auto) 1.5 x10^3/uL (0.0-1.1) Eosinophils # (Auto) 0.1 x10^3/uL (0.0-0.7) Basophils # (Auto) 0.0 x10^3/uL (0.0-0.2) Sodium Level 138 mmol/L (136-145) Potassium Level 4.2 mmol/L (3.5-5.1) Chloride Level 106 mmol/L (98-107) Carbon Dioxide Level 30 mmol/L (21-32) Anion Gap 2 (6-14) Blood Urea Nitrogen 26 mg/dL (8-26) Creatinine 0.7 mg/dL (0.7-1.3) Estimated GFR (Cockcroft-Gault) 107.2 BUN/Creatinine Ratio 37 (6-20) Glucose Level 108 mg/dL (70-99) Calcium Level 8.6 mg/dL (8.5-10.1) Total Bilirubin 0.5 mg/dL (0.2-1.0) Aspartate Amino Transf (AST/SGOT) 85 U/L (15-37) Alanine Aminotransferase (ALT/SGPT) 231 U/L (16-63) Alkaline Phosphatase 161 U/L (46-116) Total Protein 5.0 g/dL (6.4-8.2) Albumin 1.8 g/dL (3.4-5.0) Albumin/Globulin Ratio 0.6 (1.0-1.7) O2 Saturation 95 % (92-99) Arterial Blood pH 7.48 (7.35-7.45) Arterial Blood pCO2 at Patient Temp 36 mmHg (35-46) Arterial Blood pO2 at Patient Temp 82 mmHg (65-108) Arterial Blood HCO3 26 mmol/L (21-28) Arterial Blood Base Excess 3 mmol/L (-3-3) FiO2 30 Medications Active Scripts Medications Dose Route/Sig Max Daily Dose Days Date Category Aspir 81 (Aspirin) 81 Mg Tablet.dr 81 Mg PO DAILY 06/08/14 Reported Atorvastatin Calcium 10 Mg Tablet 1 Tab PO DAILY 03/10/14 Reported Aspirin 81 Mg Tab.chew 1 Tab PO DAILY 01/29/14 Reported Avodart (Dutasteride) 0.5 Mg Capsule 1 Cap PO DAILY 01/29/14 Reported Impression . ACUTE RESP FAILURE MULTIFACTORIAL ASPIRATION PNEUMONIA S/P SEE OP NOTE Laparoscopic repair of large paraesophageal hernia, MELENA ARF ABNL CXR POSSIBLE EDEMA AND PNEUMONIA MALNUTRITION DEMENTIA Plan . EXTUBATED DOING WELL CONFUSED WILL MONITOR FOR NOW SPOKE WITH FAMILY BROCH 11/04, BAL NEGATIVE ANTIBX BRONCHODILATORS LATAC EVALUATION SABRINA VALLEJO MD Dec 03, 2016 10:13
--- NOTE | 2016-12-03 13:44 | PDOC ---
G I PROGRESS NOTE Subjective Still on ventilator, but awake, alert and communicative. Physical Exam Lungs with few coarse sounds. RRR Abdomen soft/tubes. Review of Relevant I have reviewed the following items cordell (where applicable) has been applied. Labs Laboratory Tests Test 12/03/16 06:20 12/03/16 09:40 White Blood Count 10.2 x10^3/uL (4.0-11.0) Red Blood Count 2.93 x10^6/uL (4.30-5.70) Hemoglobin 9.9 g/dL (13.0-17.5) Hematocrit 28.2 % (39.0-53.0) Mean Corpuscular Volume 96 fL (79-100) Mean Corpuscular Hemoglobin 34 pg (25-35) Mean Corpuscular Hemoglobin Concent 35 g/dL (31-37) Red Cell Distribution Width 13.9 % (11.5-14.5) Platelet Count 260 x10^3/uL (140-400) Neutrophils (%) (Auto) 76 % (31-73) Lymphocytes (%) (Auto) 8 % (24-48) Monocytes (%) (Auto) 14 % (0-9) Eosinophils (%) (Auto) 1 % (0-3) Basophils (%) (Auto) 0 % (0-3) Neutrophils # (Auto) 7.7 x10^3uL (1.8-7.7) Lymphocytes # (Auto) 0.9 x10^3/uL (1.0-4.8) Monocytes # (Auto) 1.5 x10^3/uL (0.0-1.1) Eosinophils # (Auto) 0.1 x10^3/uL (0.0-0.7) Basophils # (Auto) 0.0 x10^3/uL (0.0-0.2) Sodium Level 138 mmol/L (136-145) Potassium Level 4.2 mmol/L (3.5-5.1) Chloride Level 106 mmol/L (98-107) Carbon Dioxide Level 30 mmol/L (21-32) Anion Gap 2 (6-14) Blood Urea Nitrogen 26 mg/dL (8-26) Creatinine 0.7 mg/dL (0.7-1.3) Estimated GFR (Cockcroft-Gault) 107.2 BUN/Creatinine Ratio 37 (6-20) Glucose Level 108 mg/dL (70-99) Calcium Level 8.6 mg/dL (8.5-10.1) Total Bilirubin 0.5 mg/dL (0.2-1.0) Aspartate Amino Transf (AST/SGOT) 85 U/L (15-37) Alanine Aminotransferase (ALT/SGPT) 231 U/L (16-63) Alkaline Phosphatase 161 U/L (46-116) Total Protein 5.0 g/dL (6.4-8.2) Albumin 1.8 g/dL (3.4-5.0) Albumin/Globulin Ratio 0.6 (1.0-1.7) O2 Saturation 95 % (92-99) Arterial Blood pH 7.48 (7.35-7.45) Arterial Blood pCO2 at Patient Temp 36 mmHg (35-46) Arterial Blood pO2 at Patient Temp 82 mmHg (65-108) Arterial Blood HCO3 26 mmol/L (21-28) Arterial Blood Base Excess 3 mmol/L (-3-3) FiO2 30 Laboratory Tests Test 12/03/16 06:20 12/03/16 09:40 White Blood Count 10.2 x10^3/uL (4.0-11.0) Red Blood Count 2.93 x10^6/uL (4.30-5.70) Hemoglobin 9.9 g/dL (13.0-17.5) Hematocrit 28.2 % (39.0-53.0) Mean Corpuscular Volume 96 fL (79-100) Mean Corpuscular Hemoglobin 34 pg (25-35) Mean Corpuscular Hemoglobin Concent 35 g/dL (31-37) Red Cell Distribution Width 13.9 % (11.5-14.5) Platelet Count 260 x10^3/uL (140-400) Neutrophils (%) (Auto) 76 % (31-73) Lymphocytes (%) (Auto) 8 % (24-48) Monocytes (%) (Auto) 14 % (0-9) Eosinophils (%) (Auto) 1 % (0-3) Basophils (%) (Auto) 0 % (0-3) Neutrophils # (Auto) 7.7 x10^3uL (1.8-7.7) Lymphocytes # (Auto) 0.9 x10^3/uL (1.0-4.8) Monocytes # (Auto) 1.5 x10^3/uL (0.0-1.1) Eosinophils # (Auto) 0.1 x10^3/uL (0.0-0.7) Basophils # (Auto) 0.0 x10^3/uL (0.0-0.2) Sodium Level 138 mmol/L (136-145) Potassium Level 4.2 mmol/L (3.5-5.1) Chloride Level 106 mmol/L (98-107) Carbon Dioxide Level 30 mmol/L (21-32) Anion Gap 2 (6-14) Blood Urea Nitrogen 26 mg/dL (8-26) Creatinine 0.7 mg/dL (0.7-1.3) Estimated GFR (Cockcroft-Gault) 107.2 BUN/Creatinine Ratio 37 (6-20) Glucose Level 108 mg/dL (70-99) Calcium Level 8.6 mg/dL (8.5-10.1) Total Bilirubin 0.5 mg/dL (0.2-1.0) Aspartate Amino Transf (AST/SGOT) 85 U/L (15-37) Alanine Aminotransferase (ALT/SGPT) 231 U/L (16-63) Alkaline Phosphatase 161 U/L (46-116) Total Protein 5.0 g/dL (6.4-8.2) Albumin 1.8 g/dL (3.4-5.0) Albumin/Globulin Ratio 0.6 (1.0-1.7) O2 Saturation 95 % (92-99) Arterial Blood pH 7.48 (7.35-7.45) Arterial Blood pCO2 at Patient Temp 36 mmHg (35-46) Arterial Blood pO2 at Patient Temp 82 mmHg (65-108) Arterial Blood HCO3 26 mmol/L (21-28) Arterial Blood Base Excess 3 mmol/L (-3-3) FiO2 30 Microbiology 11/25/16 Blood Culture - Final, Complete NO GROWTH AFTER 5 DAYS 11/24/16 Gram Stain - Final, Complete 11/19/16 Urine Culture - Final, Complete 11/19/16 Urine Culture Result 1 ([facility]) - Final, Complete Medications Current Medications Sodium Chloride 1,000 ml @ 1,000 mls/hr 1X ONCE IV Last administered on t 20:55; Start 11/19/16 at 20:45; Stop 11/19/16 at 21:44; Status DC Famotidine (Pepcid) 40 mg 1X ONCE IVP Last administered on 11/19/16 21:54; Start 11/19/16 at 21:30; Stop 11/19/16 at 21:31; Status DC Ondansetron HCl (Zofran) 4 mg PRN Q8HRS PRN IV NAUSEA/VOMITING Last administered on 11/19/16 21:54; Start 11/19/16 at 21:45; Stop 11/20/16 at 10:44 ; Status DC Morphine Sulfate 2 mg PRN Q2HR PRN IV PAIN; Start 11/19/16 at 21:45; Stop 11/20 at 21:44; Status DC Sodium Chloride 1,000 ml @ 110 mls/hr Q9H6M IV Last administered on 11/20/16 17:53; Start 11/19/16 at 21:41; Stop 11/20/16 at 21:40; Status DC Ondansetron HCl (Zofran) 4 mg PRN Q6HRS PRN IV NAUSEA/VOMITING; Start 11/20/16 at 10:42; Stop 11/21/16 at 10:41; Status DC Famotidine (Pepcid) 20 mg BID IVP Last administered on 12/03/16 08:34; Start 11/20/16 at 11:00 Atorvastatin Calcium (Lipitor) 10 mg QHS PO Last administered on 12/02/16 20: 51; Start 11/20/16 at 21:00 Dutasteride (Avodart) 0.5 mg DAILY PO ; Start 11/20/16 at 11:00 Labetalol HCl (Normodyne) 10 mg PRN Q2HR PRN IVP HYPERTENSION, SEE COMMENTS; Start 11/20/16 at 10:45 Acetaminophen (Tylenol) 500 mg PRN Q6HRS PRN PO MILD PAIN / TEMP Last administered on 12/02/16 20:51; Start 11/20/16 at 10:45 Ondansetron HCl (Zofran) 4 mg PRN Q6HRS PRN IV NAUSEA/VOMITING; Start 11/21/16 at 07:00; Stop 11/22/16 at 06:59; Status DC Fentanyl Citrate (Fentanyl 2ml Vial) 25 mcg PRN Q5MIN PRN IV MILD PAIN; Start 11/21/16 at 07:00; Stop 11/22/16 at 06:59; Status DC Fentanyl Citrate (Fentanyl 2ml Vial) 50 mcg PRN Q5MIN PRN IV MODERATE PAIN; Start 11/21/16 at 07:00; Stop 11/22/16 at 06:59; Status DC Morphine Sulfate 1 mg PRN Q10MIN PRN IV SEVERE PAIN; Start 11/21/16 at 07:00; Stop 11/22/16 at 06:59; Status DC Ringer's Solution 1,000 ml @ 30 mls/hr Q24H IV ; Start 11/21/16 at 07:00; Stop 11/21/16 at 18:59; Status DC Lidocaine HCl 2 ml PRN 1X PRN ID PRIOR TO IV START; Start 11/21/16 at 07:00; Stop 11/22/16 at 06:59; Status DC Hydromorphone HCl (Dilaudid) 0.5 mg PRN Q10MIN PRN IV SEV PAIN, Second choice; Start 11/21/16 at 07:00; Stop 11/22/16 at 06:59; Status DC Prochlorperazine Edisylate (Compazine) 5 mg PACU PRN PRN IV NAUSEA, MRX1; Start 11/21/16 at 07:00; Stop 11/22/16 at 06:59; Status DC Hydralazine HCl (Apresoline) 10 mg PRN Q4HRS PRN IVP ELEVATED BP, SEE COMMENTS ; Start 11/20/16 at 15:30 Propofol 20 ml @ As Directed STK-MED ONCE IV ; Start 11/21/16 at 07:20; Stop at 07:21; Status DC Lidocaine HCl (Lidocaine Pf 2% Vial) 5 ml STK-MED ONCE .ROUTE ; Start 11/21/16 at 07:20; Stop 11/21/16 at 07:21; Status DC Ondansetron HCl (Zofran) 4 mg STK-MED ONCE .ROUTE ; Start 11/21/16 at 07:20; Stop 11/21/16 at 07:21; Status DC Dexamethasone Sodium Phosphate (Decadron) 20 mg STK-MED ONCE .ROUTE ; Start at 07:20; Stop 11/21/16 at 07:21; Status DC Phenylephrine HCl 1 mg STK-MED ONCE IV ; Start 11/21/16 at 07:21; Stop 11/21/16 at 07:22; Status DC Ephedrine Sulfate 50 mg STK-MED ONCE IV ; Start 11/21/16 at 07:21; Stop at 07:22; Status DC Fentanyl Citrate (Fentanyl 5ml Vial) 250 mcg STK-MED ONCE .ROUTE ; Start at 07:21; Stop 11/21/16 at 07:22; Status DC Rocuronium [place] (Zemuron) 50 mg STK-MED ONCE .ROUTE ; Start 11/21/16 at 07:22 ; Stop 11/21/16 at 07:23; Status DC Famotidine (Pepcid) 20 mg STK-MED ONCE .ROUTE ; Start 11/21/16 at 07:23; Stop at 07:24; Status DC Cellulose 1 each STK-MED ONCE .ROUTE Last administered on 11/21/16 10:29; Start 11/21/16 at 07:33; Stop 11/21/16 at 07:34; Status DC Bupivacaine HCl/ Epinephrine Bitart (Marcaine-Epi 0.5%-[id number]) 50 ml STK-MED ONCE .ROUTE Last administered on 11/21/16 08:43; Start 11/21/16 at 07:34; Stop 11/21/16 at 07:35; Status DC Cefazolin Sodium/ Dextrose 50 ml @ 100 mls/hr 1X PREOP ONCE IV Last administered on 11/21/16 08:25; Start 11/21/16 at 07:37; Stop 11/21/16 at 08:06 ; Status DC Succinylcholine Chloride (Anectine) 200 mg STK-MED ONCE .ROUTE ; Start 11/21/16 at 07:59; Stop 11/21/16 at 08:00; Status DC Sevoflurane (Ultane) 90 ml STK-MED ONCE IH ; Start 11/21/16 at 09:24; Stop 11/21 at 09:25; Status DC Rocuronium [place] (Zemuron) 50 mg STK-MED ONCE .ROUTE ; Start 11/21/16 at 09:25 ; Stop 11/21/16 at 09:26; Status DC Cellulose 1 each STK-MED ONCE .ROUTE ; Start 11/21/16 at 10:11; Stop 11/21/16 at 10:12; Status DC Sodium Bicarbonate 50 meq STK-MED ONCE .ROUTE ; Start 11/21/16 at 10:34; Stop at 10:35; Status DC Rocuronium [place] (Zemuron) 50 mg STK-MED ONCE .ROUTE ; Start 11/21/16 at 11:00 ; Stop 11/21/16 at 11:01; Status DC Sevoflurane (Ultane) 90 ml STK-MED ONCE IH ; Start 11/21/16 at 12:46; Stop 11/21 at 12:47; Status DC Piperacillin Sod/ Tazobactam Sod 3.375 gm/Sodium Chloride 50 ml @ 100 mls/hr Q6HRS IV Last administered on 11/26/16 11:40; Start 11/21/16 at 14:00; Stop at 14:43; Status DC Fentanyl Citrate (Fentanyl 2ml Vial) 25 mcg PRN Q2HR PRN IV PAIN Last administered on 11/24/16 02:49; Start 11/21/16 at 13:30; Stop 11/25/16 at 12:11 ; Status DC Fentanyl Citrate (Fentanyl 2ml Vial) 50 mcg PRN Q2HR PRN IV PAIN Last administered on 11/23/16 09:50; Start 11/21/16 at 13:30; Stop 11/25/16 at 12:11 ; Status DC Propofol 100 ml @ 0 mls/hr CONT PRN IV PER PROTOCOL Last administered on 21:08; Start 11/21/16 at 13:30 Fentanyl Citrate (Fentanyl 2ml Vial) 25 mcg PRN Q1HR PRN IV COMM Last administered on 11/27/16 06:03; Start 11/21/16 at 13:30 Fentanyl Citrate (Fentanyl 2ml Vial) 50 mcg PRN Q1HR PRN IV COMM Last administered on 11/26/16 23:08; Start 11/21/16 at 13:30 Chlorhexidine Gluconate (Peridex) 15 ml BID MM Last administered on 12/03/16 08:34; Start 11/21/16 at 21:00 Potassium Chloride/Dextrose/ Sod Cl 1,000 ml @ 100 mls/hr Q10H IV Last administered on 11/25/16 08:55; Start 11/21/16 at 15:00; Stop 11/25/16 at 21:59 ; Status DC Albuterol/ Ipratropium (Duoneb) 3 ml RTQID NEB Last administered on 12/03/16 13:00; Start 11/23/16 at 16:00 Amino Acids/ Glycerin/ Electrolytes 1,000 ml @ 80 mls/hr [id number] IV ; Start at 16:15; Stop 11/23/16 at 18:21; Status DC Amino Acids/ Glycerin/ Electrolytes 1,000 ml @ 80 mls/hr [id number] IV Last administered on 11/24/16 08:00; Start 11/23/16 at 21:00; Stop 11/24/16 at 13:45 ; Status DC Amino Acids/ Glycerin/ Electrolytes 1,000 ml @ 80 mls/hr [id number] IV Last administered on 11/25/16 08:22; Start 11/25/16 at 08:00; Stop 11/25/16 at 21:59 ; Status DC Linezolid 300 ml @ 300 mls/hr Q12HR IV Last administered on 11/28/16 09:12; Start 11/25/16 at 10:00; Stop 11/28/16 at 12:42; Status DC Info 1 each PRN DAILY PRN MC SEE COMMENTS Last administered on 11/30/16 13:53 ; Start 11/25/16 at 11:15; Stop 12/01/16 at 09:11; Status DC Sodium Acetate 90 meq/Potassium Chloride 50 meq/ Potassium Phosphate 13.6 mmol/ Magnesium Sulfate 10 meq/ Calcium Gluconate 10 meq/ Multivitamins 10 ml/Chromium / Copper/Manganese/ Seleni/Zn 1 ml/ Total Parenteral Nutrition/Amino Acids/ Dextrose 1,512 ml @ 63 mls/hr TPN CONT IV Last administered on 11/25/16 22: 04; Start 11/25/16 at 22:00; Stop 11/26/16 at 21:59; Status DC Sodium Chloride 45 meq/Sodium Acetate 45 meq/ Potassium Chloride 50 meq/ Potassium Phosphate 17 mmol/ Magnesium Sulfate 16 meq/Calcium Gluconate 14 meq/ Multivitamins 10 ml/Chromium/ Copper/Manganese/ Seleni/Zn 1 ml/ Total Parenteral Nutrition/Amino Acids/Dextrose 1,512 ml @ 63 mls/hr TPN CONT IV Last administered on 11/26/16 21:01; Start 11/26/16 at 22:00; Stop 11/27/16 at 21:59; Status DC Potassium Phosphate 10 mmol/ Sodium Chloride 103.3333 ml @ 51.667 m... Q2H IV Last administered on 11/26/16 14:54; Start 11/26/16 at 13:30; Stop 11/26/16 at 17:29; Status DC Meropenem 500 mg/ Sodium Chloride 50 ml @ 100 mls/hr Q8HRS IV Last administered on 12/03/16 06:13; Start 11/26/16 at 15:00 Potassium Chloride/Dextrose/ Sod Cl 1,000 ml @ 37 mls/hr Q24H IV Last administered on 11/30/16 19:40; Start 11/26/16 at 20:00; Stop 12/01/16 at 09:11 ; Status DC Sodium Chloride 45 meq/Sodium Acetate 45 meq/ Potassium Chloride 50 meq/ Potassium Phosphate 17 mmol/ Magnesium Sulfate 12 meq/Calcium Gluconate 12 meq/ Multivitamins 10 ml/Chromium/ Copper/Manganese/ Seleni/Zn 1 ml/ Total Parenteral Nutrition/Amino Acids/Dextrose/ Fat Emulsion Intravenous 1,512 ml @ 63 mls/hr TPN CONT IV Last administered on 11/27/16 22:11; Start 11/27/16 at 22:00; Stop 11/28/16 at 21:59; Status DC Sodium Chloride 45 meq/Sodium Acetate 45 meq/ Potassium Chloride 50 meq/ Potassium Phosphate 17 mmol/ Magnesium Sulfate 12 meq/Calcium Gluconate 10 meq/ Multivitamins 10 ml/Chromium/ Copper/Manganese/ Seleni/Zn 1 ml/ Total Parenteral Nutrition/Amino Acids/Dextrose 1,512 ml @ 63 mls/hr TPN CONT IV Last administered on 11/28/16 21:35; Start 11/28/16 at 22:00; Stop 11/29/16 at 21:59; Status DC Sodium Chloride 45 meq/Sodium Acetate 45 meq/ Potassium Chloride 50 meq/ Potassium Phosphate 17 mmol/ Magnesium Sulfate 12 meq/ Multivitamins 10 ml/ Chromium/ Copper/Manganese/ Seleni/Zn 1 ml/ Total Parenteral Nutrition/Amino Acids/Dextrose 1,512 ml @ 63 mls/hr TPN CONT IV Last administered on 23:23; Start 11/29/16 at 22:00; Stop 11/30/16 at 21:59; Status DC Enoxaparin Sodium (Lovenox 40mg Syringe) 40 mg Q24H SQ Last administered on 08:35; Start 11/30/16 at 10:00 Sodium Chloride 45 meq/Sodium Acetate 45 meq/ Potassium Chloride 50 meq/ Potassium Phosphate 17 mmol/ Magnesium Sulfate 12 meq/ Multivitamins 10 ml/ Chromium/ Copper/Manganese/ Seleni/Zn 1 ml/ Total Parenteral Nutrition/Amino Acids/Dextrose 1,512 ml @ 63 mls/hr TPN CONT IV Last administered on 21:31; Start 11/30/16 at 22:00; Stop 12/01/16 at 21:59; Status DC Active Scripts Active Reported Aspir 81 (Aspirin) 81 Mg Tablet.dr 81 Mg PO DAILY Atorvastatin Calcium 10 Mg Tablet 1 Tab PO DAILY Aspirin 81 Mg Tab.chew 1 Tab PO DAILY Avodart (Dutasteride) 0.5 Mg Capsule 1 Cap PO DAILY Vitals/I & O Vital Sign - Last 24 Hours 12/02/16 12/02/16 12/02/16 12/02/16 15:00 15:07 15:41 15:47 Temp 99.3 99.3 Pulse 62 61 Resp 20 20 B/P (MAP) 111/64 (80) 103/56 (72) Pulse Ox 100 100 100 O2 Delivery Ventilator Ventilator Ventilator Mechanical Ventilator 12/02/16 12/02/16 12/02/16 12/02/16 16:54 16:59 17:59 19:00 Temp 99.3 99.3 Pulse 60 60 60 Resp 23 20 23 B/P (MAP) 128/63 (84) 102/52 (69) 106/56 (73) Pulse Ox 100 100 100 100 O2 Delivery Ventilator Ventilator Ventilator Ventilator 12/02/16 12/02/16 12/02/16 12/02/16 19:37 20:00 20:00 21:00 Temp 99.4 100.2 99.4 100.2 Pulse 67 60 Resp 25 23 B/P (MAP) 99/54 (69) 151/59 (89) Pulse Ox 100 100 100 O2 Delivery Ventilator Mechanical Ventilator Ventilator Ventilator 12/02/16 12/02/16 12/02/16 12/03/16 22:00 22:49 23:00 00:00 Temp 99.1 100.1 99.1 100.1 Pulse 62 60 61 Resp 22 22 22 B/P (MAP) 149/67 (94) 118/65 (82) 102/57 (72) Pulse Ox 100 100 100 100 O2 Delivery Ventilator Ventilator Ventilator Ventilator 12/03/16 12/03/16 12/03/16 12/03/16 00:00 01:00 01:14 02:00 Pulse 60 60 Resp 22 22 B/P (MAP) 116/54 (74) 118/60 (79) Pulse Ox 100 100 100 O2 Delivery Mechanical Ventilator Ventilator Ventilator Ventilator 12/03/16 12/03/16 12/03/16 12/03/16 03:00 03:50 04:00 04:00 Temp 100.1 100.1 Pulse 60 61 Resp 24 22 B/P (MAP) 124/65 (84) 113/57 (75) Pulse Ox 100 100 100 O2 Delivery Ventilator Ventilator Ventilator Mechanical Ventilator 12/03/16 12/03/16 12/03/16 12/03/16 05:00 05:41 06:00 07:00 Temp 99.8 99.8 Pulse 60 60 66 Resp 22 24 25 B/P (MAP) 114/64 (81) 124/65 (84) 119/65 (83) Pulse Ox 100 100 100 100 O2 Delivery Ventilator Ventilator Ventilator Ventilator 12/03/16 12/03/16 12/03/16 12/03/16 08:00 08:00 08:30 09:00 Temp 99.0 99.0 Pulse 65 65 Resp 30 26 B/P (MAP) 122/63 (82) 114/54 (74) Pulse Ox 98 100 97 O2 Delivery Mechanical Ventilator Ventilator Ventilator Ventilator 12/03/16 12/03/16 12/03/16 12/03/16 09:05 10:00 10:30 11:00 Pulse 62 63 Resp 20 24 B/P (MAP) 102/61 (75) 94/49 (64) Pulse Ox 99 100 100 O2 Delivery Ventilator Ventilator Ventilator Ventilator 12/03/16 12/03/16 12/03/16 12/03/16 12:00 12:00 13:00 13:00 Temp 98.9 98.9 Pulse 66 70 Resp 24 22 B/P (MAP) 120/66 (84) 112/60 (77) Pulse Ox 99 97 100 O2 Delivery Ventilator Mechanical Ventilator Ventilator Ventilator Intake and Output 12/02/16 12/02/16 12/03/16 15:00 23:00 07:00 Intake Total 105 ml 679 ml 1100 ml Output Total 920 ml 345 ml 2350 ml Balance -815 ml 334 ml -1250 ml Problem List Problems Medical Problems: (1) Upper GI bleeding Status: Acute Assessment Paraesophageal hernia, post-op Post-op resp failure, improved. Plan of Care: Continue current Tx, Mgmt WILBERTO ROBERTS MD Dec 03, 2016 13:44
--- NOTE | 2016-12-03 14:05 | PDOC2 ---
PALLIATIVE CARE Palliative Care Note 1130 Palliative Care Patient remains intubated. More awake. Restless at times. Aware of other family members here. Met with /DPOA Jacquelin and daughter Yani Nixrasheed/ ISIDRA. Reviewed medical condition and plan of care. Discussed extubation. Jacquelin does not want re-intubation or tracheostomy. Daughter wants patient comfortable. Jacquelin and Yani understand patient may have a long and limited recovery. Discussed nutrition. Patient may need swallow test in few days to determine if patient is able to swallow safely. Plan: Extubation today if possible. No reintubation No tracheostomy. LTAC screen. KAYLA VITAL Dec 03, 2016 14:05
--- NOTE | 2016-12-03 15:23 | PDOC ---
QIANA GIBSON PRODUCT INSPECTION COORDINATOR 12/03/16 1523: SURGICAL PROGRESS NOTE Subjective extubated restless Vital Signs Vital Signs Date Time Temp Pulse Resp B/P (MAP) Pulse Ox O2 Delivery O2 Flow Rate FiO2 12/03/16 15:00 76 28 117/62 (80) 95 Nasal Cannula 4.0 12/03/16 12:00 98.9 98.9 I&O Intake and Output 12/03/16 07:00 Intake Total 1884 ml Output Total 3615 ml Balance -1731 ml Intake Oral 0 ml IV Total 90 ml Tube Feeding 1594 ml Other 200 ml Output Urine Total 3615 ml Gastric Drainage Total 0 ml # Bowel Movements 1 General: No acute distress, Other (restless) Abdomen: Soft, Other ( gtube in place, incision with some serosang drainage and mild erythema to lower incision, no induration ) Labs Laboratory Tests Test 12/03/16 06:20 12/03/16 09:40 White Blood Count 10.2 x10^3/uL (4.0-11.0) Red Blood Count 2.93 x10^6/uL (4.30-5.70) Hemoglobin 9.9 g/dL (13.0-17.5) Hematocrit 28.2 % (39.0-53.0) Mean Corpuscular Volume 96 fL (79-100) Mean Corpuscular Hemoglobin 34 pg (25-35) Mean Corpuscular Hemoglobin Concent 35 g/dL (31-37) Red Cell Distribution Width 13.9 % (11.5-14.5) Platelet Count 260 x10^3/uL (140-400) Neutrophils (%) (Auto) 76 % (31-73) Lymphocytes (%) (Auto) 8 % (24-48) Monocytes (%) (Auto) 14 % (0-9) Eosinophils (%) (Auto) 1 % (0-3) Basophils (%) (Auto) 0 % (0-3) Neutrophils # (Auto) 7.7 x10^3uL (1.8-7.7) Lymphocytes # (Auto) 0.9 x10^3/uL (1.0-4.8) Monocytes # (Auto) 1.5 x10^3/uL (0.0-1.1) Eosinophils # (Auto) 0.1 x10^3/uL (0.0-0.7) Basophils # (Auto) 0.0 x10^3/uL (0.0-0.2) Sodium Level 138 mmol/L (136-145) Potassium Level 4.2 mmol/L (3.5-5.1) Chloride Level 106 mmol/L (98-107) Carbon Dioxide Level 30 mmol/L (21-32) Anion Gap 2 (6-14) Blood Urea Nitrogen 26 mg/dL (8-26) Creatinine 0.7 mg/dL (0.7-1.3) Estimated GFR (Cockcroft-Gault) 107.2 BUN/Creatinine Ratio 37 (6-20) Glucose Level 108 mg/dL (70-99) Calcium Level 8.6 mg/dL (8.5-10.1) Total Bilirubin 0.5 mg/dL (0.2-1.0) Aspartate Amino Transf (AST/SGOT) 85 U/L (15-37) Alanine Aminotransferase (ALT/SGPT) 231 U/L (16-63) Alkaline Phosphatase 161 U/L (46-116) Total Protein 5.0 g/dL (6.4-8.2) Albumin 1.8 g/dL (3.4-5.0) Albumin/Globulin Ratio 0.6 (1.0-1.7) O2 Saturation 95 % (92-99) Arterial Blood pH 7.48 (7.35-7.45) Arterial Blood pCO2 at Patient Temp 36 mmHg (35-46) Arterial Blood pO2 at Patient Temp 82 mmHg (65-108) Arterial Blood HCO3 26 mmol/L (21-28) Arterial Blood Base Excess 3 mmol/L (-3-3) FiO2 30 Laboratory Tests Test 12/03/16 06:20 12/03/16 09:40 White Blood Count 10.2 x10^3/uL (4.0-11.0) Red Blood Count 2.93 x10^6/uL (4.30-5.70) Hemoglobin 9.9 g/dL (13.0-17.5) Hematocrit 28.2 % (39.0-53.0) Mean Corpuscular Volume 96 fL (79-100) Mean Corpuscular Hemoglobin 34 pg (25-35) Mean Corpuscular Hemoglobin Concent 35 g/dL (31-37) Red Cell Distribution Width 13.9 % (11.5-14.5) Platelet Count 260 x10^3/uL (140-400) Neutrophils (%) (Auto) 76 % (31-73) Lymphocytes (%) (Auto) 8 % (24-48) Monocytes (%) (Auto) 14 % (0-9) Eosinophils (%) (Auto) 1 % (0-3) Basophils (%) (Auto) 0 % (0-3) Neutrophils # (Auto) 7.7 x10^3uL (1.8-7.7) Lymphocytes # (Auto) 0.9 x10^3/uL (1.0-4.8) Monocytes # (Auto) 1.5 x10^3/uL (0.0-1.1) Eosinophils # (Auto) 0.1 x10^3/uL (0.0-0.7) Basophils # (Auto) 0.0 x10^3/uL (0.0-0.2) Sodium Level 138 mmol/L (136-145) Potassium Level 4.2 mmol/L (3.5-5.1) Chloride Level 106 mmol/L (98-107) Carbon Dioxide Level 30 mmol/L (21-32) Anion Gap 2 (6-14) Blood Urea Nitrogen 26 mg/dL (8-26) Creatinine 0.7 mg/dL (0.7-1.3) Estimated GFR (Cockcroft-Gault) 107.2 BUN/Creatinine Ratio 37 (6-20) Glucose Level 108 mg/dL (70-99) Calcium Level 8.6 mg/dL (8.5-10.1) Total Bilirubin 0.5 mg/dL (0.2-1.0) Aspartate Amino Transf (AST/SGOT) 85 U/L (15-37) Alanine Aminotransferase (ALT/SGPT) 231 U/L (16-63) Alkaline Phosphatase 161 U/L (46-116) Total Protein 5.0 g/dL (6.4-8.2) Albumin 1.8 g/dL (3.4-5.0) Albumin/Globulin Ratio 0.6 (1.0-1.7) O2 Saturation 95 % (92-99) Arterial Blood pH 7.48 (7.35-7.45) Arterial Blood pCO2 at Patient Temp 36 mmHg (35-46) Arterial Blood pO2 at Patient Temp 82 mmHg (65-108) Arterial Blood HCO3 26 mmol/L (21-28) Arterial Blood Base Excess 3 mmol/L (-3-3) FiO2 30 Problem List Problems Medical Problems: (1) Upper GI bleeding Status: Acute Assessment/Plan supportive care pt extubated today Problems: SYDNEE MCCRACKEN MD 12/03/16 1630: SURGICAL PROGRESS NOTE Assessment/Plan Reviewed, agree with above, supportive care Problems: QIANA GIBSON APRN Dec 03, 2016 15:23 SYDNEE MCCRACKEN MD Dec 03, 2016 16:30
[2016-12-03] MEDS: ATORVASTATIN CALCIUM 10 MG TABLET. PO SCH (22:04)
[2016-12-04] VITALS (24 sets, daily range): BP systolic 89–128; BP diastolic 48–70
[2016-12-04] MEDS: MEROPENEM 500 MG in IV NORMAL SALINE 50ML 50 ML IV SCH ×3 (05:33→22:28)
--- NOTE | 2016-12-04 07:43 | PDOC ---
Infectious Disease Note Subjective Subjective extubated ROS ROS no n/v/d/pain Vital Sign Vital Signs Vital Signs Date Time Temp Pulse Resp B/P (MAP) Pulse Ox O2 Delivery O2 Flow Rate FiO2 12/04/16 07:00 63 27 108/51 (70) 95 Room Air 12/04/16 06:15 3.0 12/04/16 04:00 98.6 98.6 Physical Exam PHYSICAL EXAM GENERAL: NAD, Alert HEENT: PERRL, OC/OP NECK: Supple, no JVD, no LN LUNGS: Clear HEART: S1S2, no gallop, no murmur ABD: Soft, NT, no organomegaly, no rebound EXT: No edema, no cyanosis TRUMPET PLAYER: Alert, demented, moves all ext SKIN: No rash IV: ok Labs Lab Laboratory Tests Test 12/03/16 09:40 12/04/16 05:41 O2 Saturation 95 % (92-99) Arterial Blood pH 7.48 (7.35-7.45) Arterial Blood pCO2 at Patient Temp 36 mmHg (35-46) Arterial Blood pO2 at Patient Temp 82 mmHg (65-108) Arterial Blood HCO3 26 mmol/L (21-28) Arterial Blood Base Excess 3 mmol/L (-3-3) FiO2 30 Glucose (Fingerstick) 92 mg/dL (70-99) Objective Assessment Fever, Leukocytosis, stable Aspiration pneumonia. s/p bronch 11/22. GS: GPC & yeast. Final cx yeast only. 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 Acute respiratory failure Anemia s/p PRBCs 11/27 Pacemaker Dementia Plan Plan of Care Meropenem (started 11/26) Monitor labs Supportive care DNR/DNI JANES BEJARANO MD Dec 04, 2016 07:43
[2016-12-04] MEDS: IPRATRPIUM/ALBUTEROL 0.5/2.5MG 3 ML NEBU. NEB SCH ×4 (08:58→19:50)
[2016-12-04] MEDS: DUTASTERIDE 0.5 MG CAPSULE PO SCH (09:00)
[2016-12-04] MEDS: ENOXAPARIN 40 MG/0.4 ML SYRINGE. SQ SCH (09:33)
[2016-12-04] MEDS: FAMOTIDINE 20 MG/2 ML VIAL IVP SCH ×2 (09:33→22:28)
--- NOTE | 2016-12-04 09:55 | PDOC ---
PROGRESS NOTES Chief Complaint Chief Complaint hematemesis, GI bleed, upper, req. surgery on admit ASSESSMENT AND PLAN: 1. 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 2. Acute respiratory failure: On mechanical ventilation, aspiration pneumonia. sputum cx + GNR. on zyvox and meropenum with ID 3. Leukocytosis 4. Hx Arrhythmia NOS: hx pacer placement 5. Prophylaxis: SCDs; 6. 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 7. hypophosphatemia: 8. DNR now, off vent, on RA, breathing well, but tachypneic 9. OMARI, 10. moderate malnutrition, not POA History of Present Illness History of Present Illness off vent, doing well, but very confused, and still tachypneic, open mouth posture at rest and daughter in room, he is responding to them follows commands well, seems calm, not oriented, calm and follows most commands cont IV fluid speech and PT and OT to be more aggressive today Supportive care still DNR, plan transfer to LTAC, soon Vitals Vitals Vital Signs Date Time Temp Pulse Resp B/P (MAP) Pulse Ox O2 Delivery O2 Flow Rate FiO2 12/04/16 09:00 96 Room Air 12/04/16 08:00 99.3 62 26 104/54 (71) 99.3 12/04/16 06:15 3.0 Physical Exam Physical Exam lethargic, off vent, breathing well, , RA General: No acute distress, Other (restless) Heart: Regular rate, Normal S1, Normal S2 Lungs: Clear Abdomen: Soft, Other ( gtube in place, incision with some serosang drainage and mild erythema to lower incision, no induration ) Extremities: No clubbing, No cyanosis Skin: No rashes, No breakdown Labs LABS Laboratory Tests Test 12/04/16 05:41 Glucose (Fingerstick) 92 mg/dL (70-99) Assessment and Plan Assessmemt and Plan Problems Medical Problems: (1) Upper GI bleeding Status: Acute Problems: Comment Review of Relevant I have reviewed the following items cordell (where applicable) has been applied. Labs Laboratory Tests Test 12/03/16 06:20 12/03/16 09:40 12/04/16 05:41 White Blood Count 10.2 x10^3/uL (4.0-11.0) Red Blood Count 2.93 x10^6/uL (4.30-5.70) Hemoglobin 9.9 g/dL (13.0-17.5) Hematocrit 28.2 % (39.0-53.0) Mean Corpuscular Volume 96 fL (79-100) Mean Corpuscular Hemoglobin 34 pg (25-35) Mean Corpuscular Hemoglobin Concent 35 g/dL (31-37) Red Cell Distribution Width 13.9 % (11.5-14.5) Platelet Count 260 x10^3/uL (140-400) Neutrophils (%) (Auto) 76 % (31-73) Lymphocytes (%) (Auto) 8 % (24-48) Monocytes (%) (Auto) 14 % (0-9) Eosinophils (%) (Auto) 1 % (0-3) Basophils (%) (Auto) 0 % (0-3) Neutrophils # (Auto) 7.7 x10^3uL (1.8-7.7) Lymphocytes # (Auto) 0.9 x10^3/uL (1.0-4.8) Monocytes # (Auto) 1.5 x10^3/uL (0.0-1.1) Eosinophils # (Auto) 0.1 x10^3/uL (0.0-0.7) Basophils # (Auto) 0.0 x10^3/uL (0.0-0.2) Sodium Level 138 mmol/L (136-145) Potassium Level 4.2 mmol/L (3.5-5.1) Chloride Level 106 mmol/L (98-107) Carbon Dioxide Level 30 mmol/L (21-32) Anion Gap 2 (6-14) Blood Urea Nitrogen 26 mg/dL (8-26) Creatinine 0.7 mg/dL (0.7-1.3) Estimated GFR (Cockcroft-Gault) 107.2 BUN/Creatinine Ratio 37 (6-20) Glucose Level 108 mg/dL (70-99) Calcium Level 8.6 mg/dL (8.5-10.1) Total Bilirubin 0.5 mg/dL (0.2-1.0) Aspartate Amino Transf (AST/SGOT) 85 U/L (15-37) Alanine Aminotransferase (ALT/SGPT) 231 U/L (16-63) Alkaline Phosphatase 161 U/L (46-116) Total Protein 5.0 g/dL (6.4-8.2) Albumin 1.8 g/dL (3.4-5.0) Albumin/Globulin Ratio 0.6 (1.0-1.7) O2 Saturation 95 % (92-99) Arterial Blood pH 7.48 (7.35-7.45) Arterial Blood pCO2 at Patient Temp 36 mmHg (35-46) Arterial Blood pO2 at Patient Temp 82 mmHg (65-108) Arterial Blood HCO3 26 mmol/L (21-28) Arterial Blood Base Excess 3 mmol/L (-3-3) FiO2 30 Glucose (Fingerstick) 92 mg/dL (70-99) Laboratory Tests Test 12/04/16 05:41 Glucose (Fingerstick) 92 mg/dL (70-99) Microbiology 11/25/16 Blood Culture - Final, Complete NO GROWTH AFTER 5 DAYS 11/24/16 Gram Stain - Final, Complete 11/19/16 Urine Culture - Final, Complete 11/19/16 Urine Culture Result 1 ([facility]) - Final, Complete Medications Current Medications Sodium Chloride 1,000 ml @ 1,000 mls/hr 1X ONCE IV Last administered on 20:55; Start 11/19/16 at 20:45; Stop 11/19/16 at 21:44; Status DC Famotidine (Pepcid) 40 mg 1X ONCE IVP Last administered on 11/19/16 21:54; Start 11/19/16 at 21:30; Stop 11/19/16 at 21:31; Status DC Ondansetron HCl (Zofran) 4 mg PRN Q8HRS PRN IV NAUSEA/VOMITING Last administered on 11/19/16 21:54; Start 11/19/16 at 21:45; Stop 11/20/16 at 10:44 ; Status DC Morphine Sulfate 2 mg PRN Q2HR PRN IV PAIN; Start 11/19/16 at 21:45; Stop 11/20 at 21:44; Status DC Sodium Chloride 1,000 ml @ 110 mls/hr Q9H6M IV Last administered on 11/20/16 17:53; Start 11/19/16 at 21:41; Stop 11/20/16 at 21:40; Status DC Ondansetron HCl (Zofran) 4 mg PRN Q6HRS PRN IV NAUSEA/VOMITING; Start 11/20/16 at 10:42; Stop 11/21/16 at 10:41; Status DC Famotidine (Pepcid) 20 mg BID IVP Last administered on 12/04/16 09:33; Start at 11:00 Atorvastatin Calcium (Lipitor) 10 mg QHS PO Last administered on 12/03/16 22: 04; Start 11/20/16 at 21:00 Dutasteride (Avodart) 0.5 mg DAILY PO ; Start 11/20/16 at 11:00 Labetalol HCl (Normodyne) 10 mg PRN Q2HR PRN IVP HYPERTENSION, SEE COMMENTS; Start 11/20/16 at 10:45 Acetaminophen (Tylenol) 500 mg PRN Q6HRS PRN PO MILD PAIN / TEMP Last administered on 12/02/16 20:51; Start 11/20/16 at 10:45 Ondansetron HCl (Zofran) 4 mg PRN Q6HRS PRN IV NAUSEA/VOMITING; Start 11/21/16 at 07:00; Stop 11/22/16 at 06:59; Status DC Fentanyl Citrate (Fentanyl 2ml Vial) 25 mcg PRN Q5MIN PRN IV MILD PAIN; Start 11/21/16 at 07:00; Stop 11/22/16 at 06:59; Status DC Fentanyl Citrate (Fentanyl 2ml Vial) 50 mcg PRN Q5MIN PRN IV MODERATE PAIN; Start 11/21/16 at 07:00; Stop 11/22/16 at 06:59; Status DC Morphine Sulfate 1 mg PRN Q10MIN PRN IV SEVERE PAIN; Start 11/21/16 at 07:00; Stop 11/22/16 at 06:59; Status DC Ringer's Solution 1,000 ml @ 30 mls/hr Q24H IV ; Start 11/21/16 at 07:00; Stop 11/21/16 at 18:59; Status DC Lidocaine HCl 2 ml PRN 1X PRN ID PRIOR TO IV START; Start 11/21/16 at 07:00; Stop 11/22/16 at 06:59; Status DC Hydromorphone HCl (Dilaudid) 0.5 mg PRN Q10MIN PRN IV SEV PAIN, Second choice; Start 11/21/16 at 07:00; Stop 11/22/16 at 06:59; Status DC Prochlorperazine Edisylate (Compazine) 5 mg PACU PRN PRN IV NAUSEA, MRX1; Start 11/21/16 at 07:00; Stop 11/22/16 at 06:59; Status DC Hydralazine HCl (Apresoline) 10 mg PRN Q4HRS PRN IVP ELEVATED BP, SEE COMMENTS ; Start 11/20/16 at 15:30 Propofol 20 ml @ As Directed STK-MED ONCE IV ; Start 11/21/16 at 07:20; Stop at 07:21; Status DC Lidocaine HCl (Lidocaine Pf 2% Vial) 5 ml STK-MED ONCE .ROUTE ; Start 11/21/16 at 07:20; Stop 11/21/16 at 07:21; Status DC Ondansetron HCl (Zofran) 4 mg STK-MED ONCE .ROUTE ; Start 11/21/16 at 07:20; Stop 11/21/16 at 07:21; Status DC Dexamethasone Sodium Phosphate (Decadron) 20 mg STK-MED ONCE .ROUTE ; Start at 07:20; Stop 11/21/16 at 07:21; Status DC Phenylephrine HCl 1 mg STK-MED ONCE IV ; Start 11/21/16 at 07:21; Stop 11/21/16 at 07:22; Status DC Ephedrine Sulfate 50 mg STK-MED ONCE IV ; Start 11/21/16 at 07:21; Stop at 07:22; Status DC Fentanyl Citrate (Fentanyl 5ml Vial) 250 mcg STK-MED ONCE .ROUTE ; Start at 07:21; Stop 11/21/16 at 07:22; Status DC Rocuronium [place] (Zemuron) 50 mg STK-MED ONCE .ROUTE ; Start 11/21/16 at 07:22 ; Stop 11/21/16 at 07:23; Status DC Famotidine (Pepcid) 20 mg STK-MED ONCE .ROUTE ; Start 11/21/16 at 07:23; Stop at 07:24; Status DC Cellulose 1 each STK-MED ONCE .ROUTE Last administered on 11/21/16 10:29; Start 11/21/16 at 07:33; Stop 11/21/16 at 07:34; Status DC Bupivacaine HCl/ Epinephrine Bitart (Marcaine-Epi 0.5%-[id number]) 50 ml STK-MED ONCE .ROUTE Last administered on 11/21/16 08:43; Start 11/21/16 at 07:34; Stop 11/21/16 at 07:35; Status DC Cefazolin Sodium/ Dextrose 50 ml @ 100 mls/hr 1X PREOP ONCE IV Last administered on 11/21/16 08:25; Start 11/21/16 at 07:37; Stop 11/21/16 at 08:06 ; Status DC Succinylcholine Chloride (Anectine) 200 mg STK-MED ONCE .ROUTE ; Start 11/21/16 at 07:59; Stop 11/21/16 at 08:00; Status DC Sevoflurane (Ultane) 90 ml STK-MED ONCE IH ; Start 11/21/16 at 09:24; Stop 11/21 at 09:25; Status DC Rocuronium [place] (Zemuron) 50 mg STK-MED ONCE .ROUTE ; Start 11/21/16 at 09:25 ; Stop 11/21/16 at 09:26; Status DC Cellulose 1 each STK-MED ONCE .ROUTE ; Start 11/21/16 at 10:11; Stop 11/21/16 at 10:12; Status DC Sodium Bicarbonate 50 meq STK-MED ONCE .ROUTE ; Start 11/21/16 at 10:34; Stop at 10:35; Status DC Rocuronium [place] (Zemuron) 50 mg STK-MED ONCE .ROUTE ; Start 11/21/16 at 11:00 ; Stop 11/21/16 at 11:01; Status DC Sevoflurane (Ultane) 90 ml STK-MED ONCE IH ; Start 11/21/16 at 12:46; Stop 11/21 at 12:47; Status DC Piperacillin Sod/ Tazobactam Sod 3.375 gm/Sodium Chloride 50 ml @ 100 mls/hr Q6HRS IV Last administered on 11/26/16 11:40; Start 11/21/16 at 14:00; Stop at 14:43; Status DC Fentanyl Citrate (Fentanyl 2ml Vial) 25 mcg PRN Q2HR PRN IV PAIN Last administered on 11/24/16 02:49; Start 11/21/16 at 13:30; Stop 11/25/16 at 12:11 ; Status DC Fentanyl Citrate (Fentanyl 2ml Vial) 50 mcg PRN Q2HR PRN IV PAIN Last administered on 11/23/16 09:50; Start 11/21/16 at 13:30; Stop 11/25/16 at 12:11 ; Status DC Propofol 100 ml @ 0 mls/hr CONT PRN IV PER PROTOCOL Last administered on 21:08; Start 11/21/16 at 13:30; Stop 12/03/16 at 20:56; Status DC Fentanyl Citrate (Fentanyl 2ml Vial) 25 mcg PRN Q1HR PRN IV COMM Last administered on 11/27/16 06:03; Start 11/21/16 at 13:30 Fentanyl Citrate (Fentanyl 2ml Vial) 50 mcg PRN Q1HR PRN IV COMM Last administered on 11/26/16 23:08; Start 11/21/16 at 13:30 Chlorhexidine Gluconate (Peridex) 15 ml BID MM Last administered on 12/03/16 08:34; Start 11/21/16 at 21:00; Stop 12/03/16 at 20:56; Status DC Potassium Chloride/Dextrose/ Sod Cl 1,000 ml @ 100 mls/hr Q10H IV Last administered on 11/25/16 08:55; Start 11/21/16 at 15:00; Stop 11/25/16 at 21:59 ; Status DC Albuterol/ Ipratropium (Duoneb) 3 ml RTQID NEB Last administered on 12/04/16 08 :58; Start 11/23/16 at 16:00 Amino Acids/ Glycerin/ Electrolytes 1,000 ml @ 80 mls/hr [id number] IV ; Start at 16:15; Stop 11/23/16 at 18:21; Status DC Amino Acids/ Glycerin/ Electrolytes 1,000 ml @ 80 mls/hr [id number] IV Last administered on 11/24/16 08:00; Start 11/23/16 at 21:00; Stop 11/24/16 at 13:45 ; Status DC Amino Acids/ Glycerin/ Electrolytes 1,000 ml @ 80 mls/hr [id number] IV Last administered on 11/25/16 08:22; Start 11/25/16 at 08:00; Stop 11/25/16 at 21:59 ; Status DC Linezolid 300 ml @ 300 mls/hr Q12HR IV Last administered on 11/28/16 09:12; Start 11/25/16 at 10:00; Stop 11/28/16 at 12:42; Status DC Info 1 each PRN DAILY PRN MC SEE COMMENTS Last administered on 11/30/16 13:53 ; Start 11/25/16 at 11:15; Stop 12/01/16 at 09:11; Status DC Sodium Acetate 90 meq/Potassium Chloride 50 meq/ Potassium Phosphate 13.6 mmol/ Magnesium Sulfate 10 meq/ Calcium Gluconate 10 meq/ Multivitamins 10 ml/Chromium / Copper/Manganese/ Seleni/Zn 1 ml/ Total Parenteral Nutrition/Amino Acids/ Dextrose 1,512 ml @ 63 mls/hr TPN CONT IV Last administered on 11/25/16 22: 04; Start 11/25/16 at 22:00; Stop 11/26/16 at 21:59; Status DC Sodium Chloride 45 meq/Sodium Acetate 45 meq/ Potassium Chloride 50 meq/ Potassium Phosphate 17 mmol/ Magnesium Sulfate 16 meq/Calcium Gluconate 14 meq/ Multivitamins 10 ml/Chromium/ Copper/Manganese/ Seleni/Zn 1 ml/ Total Parenteral Nutrition/Amino Acids/Dextrose 1,512 ml @ 63 mls/hr TPN CONT IV Last administered on 11/26/16 21:01; Start 11/26/16 at 22:00; Stop 11/27/16 at 21:59; Status DC Potassium Phosphate 10 mmol/ Sodium Chloride 103.3333 ml @ 51.667 m... Q2H IV Last administered on 11/26/16 14:54; Start 11/26/16 at 13:30; Stop 11/26/16 at 17:29; Status DC Meropenem 500 mg/ Sodium Chloride 50 ml @ 100 mls/hr Q8HRS IV Last administered on 12/04/16 05:33; Start 11/26/16 at 15:00 Potassium Chloride/Dextrose/ Sod Cl 1,000 ml @ 37 mls/hr Q24H IV Last administered on 11/30/16 19:40; Start 11/26/16 at 20:00; Stop 12/01/16 at 09:11 ; Status DC Sodium Chloride 45 meq/Sodium Acetate 45 meq/ Potassium Chloride 50 meq/ Potassium Phosphate 17 mmol/ Magnesium Sulfate 12 meq/Calcium Gluconate 12 meq/ Multivitamins 10 ml/Chromium/ Copper/Manganese/ Seleni/Zn 1 ml/ Total Parenteral Nutrition/Amino Acids/Dextrose/ Fat Emulsion Intravenous 1,512 ml @ 63 mls/hr TPN CONT IV Last administered on 11/27/16 22:11; Start 11/27/16 at 22:00; Stop 11/28/16 at 21:59; Status DC Sodium Chloride 45 meq/Sodium Acetate 45 meq/ Potassium Chloride 50 meq/ Potassium Phosphate 17 mmol/ Magnesium Sulfate 12 meq/Calcium Gluconate 10 meq/ Multivitamins 10 ml/Chromium/ Copper/Manganese/ Seleni/Zn 1 ml/ Total Parenteral Nutrition/Amino Acids/Dextrose 1,512 ml @ 63 mls/hr TPN CONT IV Last administered on 11/28/16 21:35; Start 11/28/16 at 22:00; Stop 11/29/16 at 21:59; Status DC Sodium Chloride 45 meq/Sodium Acetate 45 meq/ Potassium Chloride 50 meq/ Potassium Phosphate 17 mmol/ Magnesium Sulfate 12 meq/ Multivitamins 10 ml/ Chromium/ Copper/Manganese/ Seleni/Zn 1 ml/ Total Parenteral Nutrition/Amino Acids/Dextrose 1,512 ml @ 63 mls/hr TPN CONT IV Last administered on 23:23; Start 11/29/16 at 22:00; Stop 11/30/16 at 21:59; Status DC Enoxaparin Sodium (Lovenox 40mg Syringe) 40 mg Q24H SQ Last administered on 12/04 09:33; Start 11/30/16 at 10:00 Sodium Chloride 45 meq/Sodium Acetate 45 meq/ Potassium Chloride 50 meq/ Potassium Phosphate 17 mmol/ Magnesium Sulfate 12 meq/ Multivitamins 10 ml/ Chromium/ Copper/Manganese/ Seleni/Zn 1 ml/ Total Parenteral Nutrition/Amino Acids/Dextrose 1,512 ml @ 63 mls/hr TPN CONT IV Last administered on t 21:31; Start 11/30/16 at 22:00; Stop 12/01/16 at 21:59; Status DC Active Scripts Active Reported Aspir 81 (Aspirin) 81 Mg Tablet.dr 81 Mg PO DAILY Atorvastatin Calcium 10 Mg Tablet 1 Tab PO DAILY Aspirin 81 Mg Tab.chew 1 Tab PO DAILY Avodart (Dutasteride) 0.5 Mg Capsule 1 Cap PO DAILY Vitals/I & O Vital Sign - Last 24 Hours 12/03/16 12/03/16 12/03/16 12/03/16 10:00 10:30 11:00 12:00 Temp 98.9 98.9 Pulse 62 63 66 Resp 24 B/P (MAP) 102/61 (75) 94/49 (64) 120/66 (84) Pulse Ox 99 100 100 99 O2 Delivery Ventilator Ventilator Ventilator Ventilator 12/03/16 12/03/16 12/03/16 12/03/16 12:00 13:00 13:00 13:50 Pulse 70 Resp 22 B/P (MAP) 112/60 (77) Pulse Ox 97 100 O2 Delivery Mechanical Ventilator Ventilator Ventilator Nasal Cannula O2 Flow Rate 4.0 12/03/16 12/03/16 12/03/16 12/03/16 14:00 15:00 16:00 16:00 Temp 98.9 98.9 Pulse 75 76 74 Resp B/P (MAP) 119/64 (82) 117/62 (80) 128/63 (84) Pulse Ox 99 95 99 O2 Delivery Nasal Cannula Nasal Cannula Nasal Cannula Nasal Cannula O2 Flow Rate 5.0 4.0 4.0 4.0 12/03/16 12/03/16 12/03/16 12/03/16 16:19 17:00 18:00 19:00 Pulse 75 73 70 Resp B/P (MAP) 113/57 (75) 127/64 (85) 122/63 (82) Pulse Ox 96 94 99 94 O2 Delivery Nasal Cannula Nasal Cannula Nasal Cannula Nasal Cannula O2 Flow Rate 4.0 4.0 4.0 3.0 12/03/16 12/03/16 12/03/16 12/03/16 19:28 20:00 20:00 21:00 Temp 98.8 98.8 Pulse 70 68 Resp 27 28 B/P (MAP) 112/69 (83) 114/64 (81) Pulse Ox 100 97 96 O2 Delivery Nasal Cannula Nasal Cannula Nasal Cannula Nasal Cannula O2 Flow Rate 4.0 3.0 3.0 3.0 12/03/16 12/03/16 12/04/16 12/04/16 22:05 23:00 00:00 00:00 Temp 99.3 99.3 Pulse 66 64 68 Resp 27 29 23 B/P (MAP) 111/55 (73) 98/52 (67) 115/65 (82) Pulse Ox 96 100 98 O2 Delivery Nasal Cannula Nasal Cannula Nasal Cannula Nasal Cannula O2 Flow Rate 3.0 3.0 3.0 3.0 12/04/16 12/04/16 12/04/16 12/04/16 01:07 02:15 03:05 04:00 Temp 99.3 98.6 99.3 98.6 Pulse 67 63 64 64 Resp 22 20 20 20 B/P (MAP) 100/57 (71) 100/57 (71) 112/64 (80) 126/66 (86) Pulse Ox 98 98 96 96 O2 Delivery Nasal Cannula Nasal Cannula Nasal Cannula Nasal Cannula O2 Flow Rate 3.0 3.0 3.0 3.0 12/04/16 12/04/16 12/04/16 12/04/16 04:00 05:00 06:15 07:00 Pulse 65 60 63 Resp 18 18 27 B/P (MAP) 121/65 (83) 124/69 (87) 108/51 (70) Pulse Ox 95 95 95 O2 Delivery Nasal Cannula Nasal Cannula Nasal Cannula Room Air O2 Flow Rate 3.0 3.0 3.0 12/04/16 12/04/16 08:00 09:00 Temp 99.3 99.3 Pulse 62 Resp 26 B/P (MAP) 104/54 (71) Pulse Ox 98 96 O2 Delivery Room Air Room Air Intake and Output 12/03/16 12/03/16 12/04/16 15:00 23:00 07:00 Intake Total 270 ml 760 ml 786 ml Output Total 1400 ml 1725 ml 1035 ml Balance -1130 ml -965 ml -249 ml LUX FOREMAN MD Dec 04, 2016 09:55
[2016-12-04] MEDS: ACETAMINOPHEN 500 MG TABLET PO PRN (10:03)
--- NOTE | 2016-12-04 10:08 | PDOC ---
G I PROGRESS NOTE Subjective Off ventilator/up in chair. Some mild abdominal discomfort, otherwise no complaints. Objective Still NPO pending swallow study. Physical Exam Lungs clear anteriorly. RRR Abdomen soft, not distended. G-tube. Review of Relevant I have reviewed the following items cordell (where applicable) has been applied. Labs Laboratory Tests Test 12/03/16 06:20 12/03/16 09:40 12/04/16 05:41 White Blood Count 10.2 x10^3/uL (4.0-11.0) Red Blood Count 2.93 x10^6/uL (4.30-5.70) Hemoglobin 9.9 g/dL (13.0-17.5) Hematocrit 28.2 % (39.0-53.0) Mean Corpuscular Volume 96 fL (79-100) Mean Corpuscular Hemoglobin 34 pg (25-35) Mean Corpuscular Hemoglobin Concent 35 g/dL (31-37) Red Cell Distribution Width 13.9 % (11.5-14.5) Platelet Count 260 x10^3/uL (140-400) Neutrophils (%) (Auto) 76 % (31-73) Lymphocytes (%) (Auto) 8 % (24-48) Monocytes (%) (Auto) 14 % (0-9) Eosinophils (%) (Auto) 1 % (0-3) Basophils (%) (Auto) 0 % (0-3) Neutrophils # (Auto) 7.7 x10^3uL (1.8-7.7) Lymphocytes # (Auto) 0.9 x10^3/uL (1.0-4.8) Monocytes # (Auto) 1.5 x10^3/uL (0.0-1.1) Eosinophils # (Auto) 0.1 x10^3/uL (0.0-0.7) Basophils # (Auto) 0.0 x10^3/uL (0.0-0.2) Sodium Level 138 mmol/L (136-145) Potassium Level 4.2 mmol/L (3.5-5.1) Chloride Level 106 mmol/L (98-107) Carbon Dioxide Level 30 mmol/L (21-32) Anion Gap 2 (6-14) Blood Urea Nitrogen 26 mg/dL (8-26) Creatinine 0.7 mg/dL (0.7-1.3) Estimated GFR (Cockcroft-Gault) 107.2 BUN/Creatinine Ratio 37 (6-20) Glucose Level 108 mg/dL (70-99) Calcium Level 8.6 mg/dL (8.5-10.1) Total Bilirubin 0.5 mg/dL (0.2-1.0) Aspartate Amino Transf (AST/SGOT) 85 U/L (15-37) Alanine Aminotransferase (ALT/SGPT) 231 U/L (16-63) Alkaline Phosphatase 161 U/L (46-116) Total Protein 5.0 g/dL (6.4-8.2) Albumin 1.8 g/dL (3.4-5.0) Albumin/Globulin Ratio 0.6 (1.0-1.7) O2 Saturation 95 % (92-99) Arterial Blood pH 7.48 (7.35-7.45) Arterial Blood pCO2 at Patient Temp 36 mmHg (35-46) Arterial Blood pO2 at Patient Temp 82 mmHg (65-108) Arterial Blood HCO3 26 mmol/L (21-28) Arterial Blood Base Excess 3 mmol/L (-3-3) FiO2 30 Glucose (Fingerstick) 92 mg/dL (70-99) Laboratory Tests Test 12/04/16 05:41 Glucose (Fingerstick) 92 mg/dL (70-99) Microbiology 11/25/16 Blood Culture - Final, Complete NO GROWTH AFTER 5 DAYS 11/24/16 Gram Stain - Final, Complete 11/19/16 Urine Culture - Final, Complete 11/19/16 Urine Culture Result 1 ([facility]) - Final, Complete Medications Current Medications Sodium Chloride 1,000 ml @ 1,000 mls/hr 1X ONCE IV Last administered on 20:55; Start 11/19/16 at 20:45; Stop 11/19/16 at 21:44; Status DC Famotidine (Pepcid) 40 mg 1X ONCE IVP Last administered on 11/19/16 21:54; Start 11/19/16 at 21:30; Stop 11/19/16 at 21:31; Status DC Ondansetron HCl (Zofran) 4 mg PRN Q8HRS PRN IV NAUSEA/VOMITING Last administered on 11/19/16 21:54; Start 11/19/16 at 21:45; Stop 11/20/16 at 10:44 ; Status DC Morphine Sulfate 2 mg PRN Q2HR PRN IV PAIN; Start 11/19/16 at 21:45; Stop 11/20 at 21:44; Status DC Sodium Chloride 1,000 ml @ 110 mls/hr Q9H6M IV Last administered on 11/20/16 17:53; Start 11/19/16 at 21:41; Stop 11/20/16 at 21:40; Status DC Ondansetron HCl (Zofran) 4 mg PRN Q6HRS PRN IV NAUSEA/VOMITING; Start 11/20/16 at 10:42; Stop 11/21/16 at 10:41; Status DC Famotidine (Pepcid) 20 mg BID IVP Last administered on 12/04/16 09:33; Start at 11:00 Atorvastatin Calcium (Lipitor) 10 mg QHS PO Last administered on 12/03/16 22: 04; Start 11/20/16 at 21:00 Dutasteride (Avodart) 0.5 mg DAILY PO ; Start 11/20/16 at 11:00 Labetalol HCl (Normodyne) 10 mg PRN Q2HR PRN IVP HYPERTENSION, SEE COMMENTS; Start 11/20/16 at 10:45 Acetaminophen (Tylenol) 500 mg PRN Q6HRS PRN PO MILD PAIN / TEMP Last administered on 12/04/16 10:03; Start 11/20/16 at 10:45 Ondansetron HCl (Zofran) 4 mg PRN Q6HRS PRN IV NAUSEA/VOMITING; Start 11/21/16 at 07:00; Stop 11/22/16 at 06:59; Status DC Fentanyl Citrate (Fentanyl 2ml Vial) 25 mcg PRN Q5MIN PRN IV MILD PAIN; Start 11/21/16 at 07:00; Stop 11/22/16 at 06:59; Status DC Fentanyl Citrate (Fentanyl 2ml Vial) 50 mcg PRN Q5MIN PRN IV MODERATE PAIN; Start 11/21/16 at 07:00; Stop 11/22/16 at 06:59; Status DC Morphine Sulfate 1 mg PRN Q10MIN PRN IV SEVERE PAIN; Start 11/21/16 at 07:00; Stop 11/22/16 at 06:59; Status DC Ringer's Solution 1,000 ml @ 30 mls/hr Q24H IV ; Start 11/21/16 at 07:00; Stop 11/21/16 at 18:59; Status DC Lidocaine HCl 2 ml PRN 1X PRN ID PRIOR TO IV START; Start 11/21/16 at 07:00; Stop 11/22/16 at 06:59; Status DC Hydromorphone HCl (Dilaudid) 0.5 mg PRN Q10MIN PRN IV SEV PAIN, Second choice; Start 11/21/16 at 07:00; Stop 11/22/16 at 06:59; Status DC Prochlorperazine Edisylate (Compazine) 5 mg PACU PRN PRN IV NAUSEA, MRX1; Start 11/21/16 at 07:00; Stop 11/22/16 at 06:59; Status DC Hydralazine HCl (Apresoline) 10 mg PRN Q4HRS PRN IVP ELEVATED BP, SEE COMMENTS ; Start 11/20/16 at 15:30 Propofol 20 ml @ As Directed STK-MED ONCE IV ; Start 11/21/16 at 07:20; Stop at 07:21; Status DC Lidocaine HCl (Lidocaine Pf 2% Vial) 5 ml STK-MED ONCE .ROUTE ; Start 11/21/16 at 07:20; Stop 11/21/16 at 07:21; Status DC Ondansetron HCl (Zofran) 4 mg STK-MED ONCE .ROUTE ; Start 11/21/16 at 07:20; Stop 11/21/16 at 07:21; Status DC Dexamethasone Sodium Phosphate (Decadron) 20 mg STK-MED ONCE .ROUTE ; Start at 07:20; Stop 11/21/16 at 07:21; Status DC Phenylephrine HCl 1 mg STK-MED ONCE IV ; Start 11/21/16 at 07:21; Stop 11/21/16 at 07:22; Status DC Ephedrine Sulfate 50 mg STK-MED ONCE IV ; Start 11/21/16 at 07:21; Stop at 07:22; Status DC Fentanyl Citrate (Fentanyl 5ml Vial) 250 mcg STK-MED ONCE .ROUTE ; Start at 07:21; Stop 11/21/16 at 07:22; Status DC Rocuronium [place] (Zemuron) 50 mg STK-MED ONCE .ROUTE ; Start 11/21/16 at 07:22 ; Stop 11/21/16 at 07:23; Status DC Famotidine (Pepcid) 20 mg STK-MED ONCE .ROUTE ; Start 11/21/16 at 07:23; Stop at 07:24; Status DC Cellulose 1 each STK-MED ONCE .ROUTE Last administered on 11/21/16 10:29; Start 11/21/16 at 07:33; Stop 11/21/16 at 07:34; Status DC Bupivacaine HCl/ Epinephrine Bitart (Marcaine-Epi 0.5%-[id number]) 50 ml STK-MED ONCE .ROUTE Last administered on 11/21/16 08:43; Start 11/21/16 at 07:34; Stop 11/21/16 at 07:35; Status DC Cefazolin Sodium/ Dextrose 50 ml @ 100 mls/hr 1X PREOP ONCE IV Last administered on 11/21/16 08:25; Start 11/21/16 at 07:37; Stop 11/21/16 at 08:06 ; Status DC Succinylcholine Chloride (Anectine) 200 mg STK-MED ONCE .ROUTE ; Start 11/21/16 at 07:59; Stop 11/21/16 at 08:00; Status DC Sevoflurane (Ultane) 90 ml STK-MED ONCE IH ; Start 11/21/16 at 09:24; Stop 11/21 at 09:25; Status DC Rocuronium [place] (Zemuron) 50 mg STK-MED ONCE .ROUTE ; Start 11/21/16 at 09:25 ; Stop 11/21/16 at 09:26; Status DC Cellulose 1 each STK-MED ONCE .ROUTE ; Start 11/21/16 at 10:11; Stop 11/21/16 at 10:12; Status DC Sodium Bicarbonate 50 meq STK-MED ONCE .ROUTE ; Start 11/21/16 at 10:34; Stop at 10:35; Status DC Rocuronium [place] (Zemuron) 50 mg STK-MED ONCE .ROUTE ; Start 11/21/16 at 11:00 ; Stop 11/21/16 at 11:01; Status DC Sevoflurane (Ultane) 90 ml STK-MED ONCE IH ; Start 11/21/16 at 12:46; Stop 11/21 at 12:47; Status DC Piperacillin Sod/ Tazobactam Sod 3.375 gm/Sodium Chloride 50 ml @ 100 mls/hr Q6HRS IV Last administered on 11/26/16 11:40; Start 11/21/16 at 14:00; Stop at 14:43; Status DC Fentanyl Citrate (Fentanyl 2ml Vial) 25 mcg PRN Q2HR PRN IV PAIN Last administered on 11/24/16 02:49; Start 11/21/16 at 13:30; Stop 11/25/16 at 12:11 ; Status DC Fentanyl Citrate (Fentanyl 2ml Vial) 50 mcg PRN Q2HR PRN IV PAIN Last administered on 11/23/16 09:50; Start 11/21/16 at 13:30; Stop 11/25/16 at 12:11 ; Status DC Propofol 100 ml @ 0 mls/hr CONT PRN IV PER PROTOCOL Last administered on 21:08; Start 11/21/16 at 13:30; Stop 12/03/16 at 20:56; Status DC Fentanyl Citrate (Fentanyl 2ml Vial) 25 mcg PRN Q1HR PRN IV COMM Last administered on 11/27/16 06:03; Start 11/21/16 at 13:30 Fentanyl Citrate (Fentanyl 2ml Vial) 50 mcg PRN Q1HR PRN IV COMM Last administered on 11/26/16 23:08; Start 11/21/16 at 13:30 Chlorhexidine Gluconate (Peridex) 15 ml BID MM Last administered on 12/03/16 08:34; Start 11/21/16 at 21:00; Stop 12/03/16 at 20:56; Status DC Potassium Chloride/Dextrose/ Sod Cl 1,000 ml @ 100 mls/hr Q10H IV Last administered on 11/25/16 08:55; Start 11/21/16 at 15:00; Stop 11/25/16 at 21:59 ; Status DC Albuterol/ Ipratropium (Duoneb) 3 ml RTQID NEB Last administered on 12/04/16 08 :58; Start 11/23/16 at 16:00 Amino Acids/ Glycerin/ Electrolytes 1,000 ml @ 80 mls/hr [id number] IV ; Start at 16:15; Stop 11/23/16 at 18:21; Status DC Amino Acids/ Glycerin/ Electrolytes 1,000 ml @ 80 mls/hr [id number] IV Last administered on 11/24/16 08:00; Start 11/23/16 at 21:00; Stop 11/24/16 at 13:45 ; Status DC Amino Acids/ Glycerin/ Electrolytes 1,000 ml @ 80 mls/hr [id number] IV Last administered on 11/25/16 08:22; Start 11/25/16 at 08:00; Stop 11/25/16 at 21:59 ; Status DC Linezolid 300 ml @ 300 mls/hr Q12HR IV Last administered on 11/28/16 09:12; Start 11/25/16 at 10:00; Stop 11/28/16 at 12:42; Status DC Info 1 each PRN DAILY PRN MC SEE COMMENTS Last administered on 11/30/16 13:53 ; Start 11/25/16 at 11:15; Stop 12/01/16 at 09:11; Status DC Sodium Acetate 90 meq/Potassium Chloride 50 meq/ Potassium Phosphate 13.6 mmol/ Magnesium Sulfate 10 meq/ Calcium Gluconate 10 meq/ Multivitamins 10 ml/Chromium / Copper/Manganese/ Seleni/Zn 1 ml/ Total Parenteral Nutrition/Amino Acids/ Dextrose 1,512 ml @ 63 mls/hr TPN CONT IV Last administered on 11/25/16 22: 04; Start 11/25/16 at 22:00; Stop 11/26/16 at 21:59; Status DC Sodium Chloride 45 meq/Sodium Acetate 45 meq/ Potassium Chloride 50 meq/ Potassium Phosphate 17 mmol/ Magnesium Sulfate 16 meq/Calcium Gluconate 14 meq/ Multivitamins 10 ml/Chromium/ Copper/Manganese/ Seleni/Zn 1 ml/ Total Parenteral Nutrition/Amino Acids/Dextrose 1,512 ml @ 63 mls/hr TPN CONT IV Last administered on 11/26/16 21:01; Start 11/26/16 at 22:00; Stop 11/27/16 at 21:59; Status DC Potassium Phosphate 10 mmol/ Sodium Chloride 103.3333 ml @ 51.667 m... Q2H IV Last administered on 11/26/16 14:54; Start 11/26/16 at 13:30; Stop 11/26/16 at 17:29; Status DC Meropenem 500 mg/ Sodium Chloride 50 ml @ 100 mls/hr Q8HRS IV Last administered on 12/04/16 05:33; Start 11/26/16 at 15:00 Potassium Chloride/Dextrose/ Sod Cl 1,000 ml @ 37 mls/hr Q24H IV Last administered on 11/30/16 19:40; Start 11/26/16 at 20:00; Stop 12/01/16 at 09:11 ; Status DC Sodium Chloride 45 meq/Sodium Acetate 45 meq/ Potassium Chloride 50 meq/ Potassium Phosphate 17 mmol/ Magnesium Sulfate 12 meq/Calcium Gluconate 12 meq/ Multivitamins 10 ml/Chromium/ Copper/Manganese/ Seleni/Zn 1 ml/ Total Parenteral Nutrition/Amino Acids/Dextrose/ Fat Emulsion Intravenous 1,512 ml @ 63 mls/hr TPN CONT IV Last administered on 11/27/16 22:11; Start 11/27/16 at 22:00; Stop 11/28/16 at 21:59; Status DC Sodium Chloride 45 meq/Sodium Acetate 45 meq/ Potassium Chloride 50 meq/ Potassium Phosphate 17 mmol/ Magnesium Sulfate 12 meq/Calcium Gluconate 10 meq/ Multivitamins 10 ml/Chromium/ Copper/Manganese/ Seleni/Zn 1 ml/ Total Parenteral Nutrition/Amino Acids/Dextrose 1,512 ml @ 63 mls/hr TPN CONT IV Last administered on 11/28/16 21:35; Start 11/28/16 at 22:00; Stop 11/29/16 at 21:59; Status DC Sodium Chloride 45 meq/Sodium Acetate 45 meq/ Potassium Chloride 50 meq/ Potassium Phosphate 17 mmol/ Magnesium Sulfate 12 meq/ Multivitamins 10 ml/ Chromium/ Copper/Manganese/ Seleni/Zn 1 ml/ Total Parenteral Nutrition/Amino Acids/Dextrose 1,512 ml @ 63 mls/hr TPN CONT IV Last administered on 23:23; Start 11/29/16 at 22:00; Stop 11/30/16 at 21:59; Status DC Enoxaparin Sodium (Lovenox 40mg Syringe) 40 mg Q24H SQ Last administered on 12/04 09:33; Start 11/30/16 at 10:00 Sodium Chloride 45 meq/Sodium Acetate 45 meq/ Potassium Chloride 50 meq/ Potassium Phosphate 17 mmol/ Magnesium Sulfate 12 meq/ Multivitamins 10 ml/ Chromium/ Copper/Manganese/ Seleni/Zn 1 ml/ Total Parenteral Nutrition/Amino Acids/Dextrose 1,512 ml @ 63 mls/hr TPN CONT IV Last administered on 21:31; Start 11/30/16 at 22:00; Stop 12/01/16 at 21:59; Status DC Active Scripts Active Reported Aspir 81 (Aspirin) 81 Mg Tablet.dr 81 Mg PO DAILY Atorvastatin Calcium 10 Mg Tablet 1 Tab PO DAILY Aspirin 81 Mg Tab.chew 1 Tab PO DAILY Avodart (Dutasteride) 0.5 Mg Capsule 1 Cap PO DAILY Vitals/I & O Vital Sign - Last 24 Hours 12/03/16 12/03/16 12/03/16 12/03/16 10:30 11:00 12:00 12:00 Temp 98.9 98.9 Pulse 63 66 Resp 24 24 B/P (MAP) 94/49 (64) 120/66 (84) Pulse Ox 100 100 99 O2 Delivery Ventilator Ventilator Ventilator Mechanical Ventilator 12/03/16 12/03/16 12/03/16 12/03/16 13:00 13:00 13:50 14:00 Pulse 70 75 Resp 26 B/P (MAP) 112/60 (77) 119/64 (82) Pulse Ox 97 100 99 O2 Delivery Ventilator Ventilator Nasal Cannula Nasal Cannula O2 Flow Rate 4.0 5.0 12/03/16 12/03/16 12/03/16 12/03/16 15:00 16:00 16:00 16:19 Temp 98.9 98.9 Pulse 76 74 Resp 27 B/P (MAP) 117/62 (80) 128/63 (84) Pulse Ox 95 99 96 O2 Delivery Nasal Cannula Nasal Cannula Nasal Cannula Nasal Cannula O2 Flow Rate 4.0 4.0 4.0 4.0 12/03/16 12/03/16 12/03/16 12/03/16 17:00 18:00 19:00 19:28 Pulse 75 73 70 Resp 24 28 B/P (MAP) 113/57 (75) 127/64 (85) 122/63 (82) Pulse Ox 94 99 94 100 O2 Delivery Nasal Cannula Nasal Cannula Nasal Cannula Nasal Cannula O2 Flow Rate 4.0 4.0 3.0 4.0 12/03/16 12/03/16 12/03/16 12/03/16 20:00 20:00 21:00 22:05 Temp 98.8 98.8 Pulse 70 68 66 Resp 27 28 27 B/P (MAP) 112/69 (83) 114/64 (81) 111/55 (73) Pulse Ox 97 96 96 O2 Delivery Nasal Cannula Nasal Cannula Nasal Cannula Nasal Cannula O2 Flow Rate 3.0 3.0 3.0 3.0 12/03/16 12/04/16 12/04/16 12/04/16 23:00 00:00 00:00 01:07 Temp 99.3 99.3 99.3 99.3 Pulse 64 68 67 Resp 29 23 22 B/P (MAP) 98/52 (67) 115/65 (82) 100/57 (71) Pulse Ox 100 98 98 O2 Delivery Nasal Cannula Nasal Cannula Nasal Cannula Nasal Cannula O2 Flow Rate 3.0 3.0 3.0 3.0 12/04/16 12/04/16 12/04/16 12/04/16 02:15 03:05 04:00 04:00 Temp 98.6 98.6 Pulse 63 64 64 Resp 20 20 20 B/P (MAP) 100/57 (71) 112/64 (80) 126/66 (86) Pulse Ox 98 96 96 O2 Delivery Nasal Cannula Nasal Cannula Nasal Cannula Nasal Cannula O2 Flow Rate 3.0 3.0 3.0 3.0 12/04/16 12/04/16 12/04/16 12/04/16 05:00 06:15 07:00 08:00 Temp 99.3 99.3 Pulse 65 60 63 62 Resp 18 18 27 26 B/P (MAP) 121/65 (83) 124/69 (87) 108/51 (70) 104/54 (71) Pulse Ox 95 95 95 98 O2 Delivery Nasal Cannula Nasal Cannula Room Air Room Air O2 Flow Rate 3.0 3.0 12/04/16 12/04/16 09:00 09:00 Pulse 61 Resp 27 B/P (MAP) 111/65 (80) Pulse Ox 96 98 O2 Delivery Room Air Room Air Intake and Output 712/03/16 12/04/16 15:00 23:00 07:00 Intake Total 270 ml 760 ml 786 ml Output Total 1400 ml 1725 ml 1035 ml Balance -1130 ml -965 ml -249 ml Images CXR's improving. Problem List Problems Medical Problems: (1) Upper GI bleeding Status: Acute Assessment Paraesophageal hernia, s/p repair. Resp failure, improved. Plan of Care: Continue current Tx, Mgmt Plan of Care Note Await swallow eval. WILBERTO ROBERTS MD Dec 04, 2016 10:08
--- NOTE | 2016-12-04 12:50 | PDOC ---
PULMONARY PROGRESS NOTES Subjective PT EXTUBATED 12/02 AWAKE AND ALERT AT TIMES CONFUSED Vitals Vital Signs Date Time Temp Pulse Resp B/P (MAP) Pulse Ox O2 Delivery O2 Flow Rate FiO2 12/04/16 12:00 98.9 60 30 89/51 (64) 100 Room Air 98.9 12/04/16 06:15 3.0 HEENT: Other Lungs: Clear Cardiovascular: S1, S2 Abdomen: Soft, Non-tender, Other Neuro Exam: Alert Extremities: No Edema Skin: Warm Labs Laboratory Tests Test 12/03/16 06:20 12/03/16 09:40 12/04/16 05:41 White Blood Count 10.2 x10^3/uL (4.0-11.0) Red Blood Count 2.93 x10^6/uL (4.30-5.70) Hemoglobin 9.9 g/dL (13.0-17.5) Hematocrit 28.2 % (39.0-53.0) Mean Corpuscular Volume 96 fL (79-100) Mean Corpuscular Hemoglobin 34 pg (25-35) Mean Corpuscular Hemoglobin Concent 35 g/dL (31-37) Red Cell Distribution Width 13.9 % (11.5-14.5) Platelet Count 260 x10^3/uL (140-400) Neutrophils (%) (Auto) 76 % (31-73) Lymphocytes (%) (Auto) 8 % (24-48) Monocytes (%) (Auto) 14 % (0-9) Eosinophils (%) (Auto) 1 % (0-3) Basophils (%) (Auto) 0 % (0-3) Neutrophils # (Auto) 7.7 x10^3uL (1.8-7.7) Lymphocytes # (Auto) 0.9 x10^3/uL (1.0-4.8) Monocytes # (Auto) 1.5 x10^3/uL (0.0-1.1) Eosinophils # (Auto) 0.1 x10^3/uL (0.0-0.7) Basophils # (Auto) 0.0 x10^3/uL (0.0-0.2) Sodium Level 138 mmol/L (136-145) Potassium Level 4.2 mmol/L (3.5-5.1) Chloride Level 106 mmol/L (98-107) Carbon Dioxide Level 30 mmol/L (21-32) Anion Gap 2 (6-14) Blood Urea Nitrogen 26 mg/dL (8-26) Creatinine 0.7 mg/dL (0.7-1.3) Estimated GFR (Cockcroft-Gault) 107.2 BUN/Creatinine Ratio 37 (6-20) Glucose Level 108 mg/dL (70-99) Calcium Level 8.6 mg/dL (8.5-10.1) Total Bilirubin 0.5 mg/dL (0.2-1.0) Aspartate Amino Transf (AST/SGOT) 85 U/L (15-37) Alanine Aminotransferase (ALT/SGPT) 231 U/L (16-63) Alkaline Phosphatase 161 U/L (46-116) Total Protein 5.0 g/dL (6.4-8.2) Albumin 1.8 g/dL (3.4-5.0) Albumin/Globulin Ratio 0.6 (1.0-1.7) O2 Saturation 95 % (92-99) Arterial Blood pH 7.48 (7.35-7.45) Arterial Blood pCO2 at Patient Temp 36 mmHg (35-46) Arterial Blood pO2 at Patient Temp 82 mmHg (65-108) Arterial Blood HCO3 26 mmol/L (21-28) Arterial Blood Base Excess 3 mmol/L (-3-3) FiO2 30 Glucose (Fingerstick) 92 mg/dL (70-99) Laboratory Tests Test 12/04/16 05:41 Glucose (Fingerstick) 92 mg/dL (70-99) Medications Active Scripts Medications Dose Route/Sig Max Daily Dose Days Date Category Aspir 81 (Aspirin) 81 Mg Tablet.dr 81 Mg PO DAILY 06/08/14 Reported Atorvastatin Calcium 10 Mg Tablet 1 Tab PO DAILY 03/10/14 Reported Aspirin 81 Mg Tab.chew 1 Tab PO DAILY 01/29/14 Reported Avodart (Dutasteride) 0.5 Mg Capsule 1 Cap PO DAILY 01/29/14 Reported Impression . ACUTE RESP FAILURE MULTIFACTORIAL ASPIRATION PNEUMONIA S/P SEE OP NOTE Laparoscopic repair of large paraesophageal hernia, MELENA ARF ABNL CXR POSSIBLE EDEMA AND PNEUMONIA MALNUTRITION DEMENTIA Plan . EXTUBATED 12/02 OK TO TRANSFER TO [facility] UP TO CHAIR SPOKE WITH [facility] 11/04, BAL NEGATIVE ANTIBX BRONCHODILATORS SPEECH EVALUATION SABRINA VALLEJO MD Dec 04, 2016 12:50
--- NOTE | 2016-12-04 18:35 | PDOC ---
PROGRESS NOTES Subjective Subjective awake, conversant, appears much improved, comfortable Objective Objective Vital Signs Date Time Temp Pulse Resp B/P (MAP) Pulse Ox O2 Delivery O2 Flow Rate FiO2 12/04/16 18:00 66 19 113/55 (74) 98 Room Air 12/04/16 16:00 99.3 99.3 12/04/16 06:15 3.0 Intake and Output 12/04/16 07:00 Intake Total 1816 ml Output Total 4160 ml Balance -2344 ml Intake Oral 0 ml IV Total 200 ml Tube Feeding 1526 ml Other 90 ml Output Urine Total 4160 ml Gastric Drainage Total 0 ml Physical Exam Physical Exam abdomen soft, incision ok, Gtube intact Assessment Assessment Problems Medical Problems: (1) Upper GI bleeding Status: Acute Plan Plan of Care No new surgical recs, agree with swallow eval, continue enteric feeds Comment Review of Relevant I have reviewed the following items cordell (where applicable) has been applied. Labs Laboratory Tests Test 12/03/16 06:20 12/03/16 09:40 12/04/16 05:41 White Blood Count 10.2 x10^3/uL (4.0-11.0) Red Blood Count 2.93 x10^6/uL (4.30-5.70) Hemoglobin 9.9 g/dL (13.0-17.5) Hematocrit 28.2 % (39.0-53.0) Mean Corpuscular Volume 96 fL (79-100) Mean Corpuscular Hemoglobin 34 pg (25-35) Mean Corpuscular Hemoglobin Concent 35 g/dL (31-37) Red Cell Distribution Width 13.9 % (11.5-14.5) Platelet Count 260 x10^3/uL (140-400) Neutrophils (%) (Auto) 76 % (31-73) Lymphocytes (%) (Auto) 8 % (24-48) Monocytes (%) (Auto) 14 % (0-9) Eosinophils (%) (Auto) 1 % (0-3) Basophils (%) (Auto) 0 % (0-3) Neutrophils # (Auto) 7.7 x10^3uL (1.8-7.7) Lymphocytes # (Auto) 0.9 x10^3/uL (1.0-4.8) Monocytes # (Auto) 1.5 x10^3/uL (0.0-1.1) Eosinophils # (Auto) 0.1 x10^3/uL (0.0-0.7) Basophils # (Auto) 0.0 x10^3/uL (0.0-0.2) Sodium Level 138 mmol/L (136-145) Potassium Level 4.2 mmol/L (3.5-5.1) Chloride Level 106 mmol/L (98-107) Carbon Dioxide Level 30 mmol/L (21-32) Anion Gap 2 (6-14) Blood Urea Nitrogen 26 mg/dL (8-26) Creatinine 0.7 mg/dL (0.7-1.3) Estimated GFR (Cockcroft-Gault) 107.2 BUN/Creatinine Ratio 37 (6-20) Glucose Level 108 mg/dL (70-99) Calcium Level 8.6 mg/dL (8.5-10.1) Total Bilirubin 0.5 mg/dL (0.2-1.0) Aspartate Amino Transf (AST/SGOT) 85 U/L (15-37) Alanine Aminotransferase (ALT/SGPT) 231 U/L (16-63) Alkaline Phosphatase 161 U/L (46-116) Total Protein 5.0 g/dL (6.4-8.2) Albumin 1.8 g/dL (3.4-5.0) Albumin/Globulin Ratio 0.6 (1.0-1.7) O2 Saturation 95 % (92-99) Arterial Blood pH 7.48 (7.35-7.45) Arterial Blood pCO2 at Patient Temp 36 mmHg (35-46) Arterial Blood pO2 at Patient Temp 82 mmHg (65-108) Arterial Blood HCO3 26 mmol/L (21-28) Arterial Blood Base Excess 3 mmol/L (-3-3) FiO2 30 Glucose (Fingerstick) 92 mg/dL (70-99) Laboratory Tests Test 12/04/16 05:41 Glucose (Fingerstick) 92 mg/dL (70-99) Microbiology 11/25/16 Blood Culture - Final, Complete NO GROWTH AFTER 5 DAYS 11/24/16 Gram Stain - Final, Complete 11/19/16 Urine Culture - Final, Complete 11/19/16 Urine Culture Result 1 ([facility]) - Final, Complete Medications Current Medications Sodium Chloride 1,000 ml @ 1,000 mls/hr 1X ONCE IV Last administered on 20:55; Start 11/19/16 at 20:45; Stop 11/19/16 at 21:44; Status DC Famotidine (Pepcid) 40 mg 1X ONCE IVP Last administered on 11/19/16 21:54; Start 11/19/16 at 21:30; Stop 11/19/16 at 21:31; Status DC Ondansetron HCl (Zofran) 4 mg PRN Q8HRS PRN IV NAUSEA/VOMITING Last administered on 11/19/16 21:54; Start 11/19/16 at 21:45; Stop 11/20/16 at 10:44 ; Status DC Morphine Sulfate 2 mg PRN Q2HR PRN IV PAIN; Start 11/19/16 at 21:45; Stop 11/20 at 21:44; Status DC Sodium Chloride 1,000 ml @ 110 mls/hr Q9H6M IV Last administered on 11/20/16 17:53; Start 11/19/16 at 21:41; Stop 11/20/16 at 21:40; Status DC Ondansetron HCl (Zofran) 4 mg PRN Q6HRS PRN IV NAUSEA/VOMITING; Start 11/20/16 at 10:42; Stop 11/21/16 at 10:41; Status DC Famotidine (Pepcid) 20 mg BID IVP Last administered on 12/04/16 09:33; Start at 11:00 Atorvastatin Calcium (Lipitor) 10 mg QHS PO Last administered on 12/03/16 22: 04; Start 11/20/16 at 21:00 Dutasteride (Avodart) 0.5 mg DAILY PO ; Start 11/20/16 at 11:00 Labetalol HCl (Normodyne) 10 mg PRN Q2HR PRN IVP HYPERTENSION, SEE COMMENTS; Start 11/20/16 at 10:45 Acetaminophen (Tylenol) 500 mg PRN Q6HRS PRN PO MILD PAIN / TEMP Last administered on 12/04/16 10:03; Start 11/20/16 at 10:45 Ondansetron HCl (Zofran) 4 mg PRN Q6HRS PRN IV NAUSEA/VOMITING; Start 11/21/16 at 07:00; Stop 11/22/16 at 06:59; Status DC Fentanyl Citrate (Fentanyl 2ml Vial) 25 mcg PRN Q5MIN PRN IV MILD PAIN; Start 11/21/16 at 07:00; Stop 11/22/16 at 06:59; Status DC Fentanyl Citrate (Fentanyl 2ml Vial) 50 mcg PRN Q5MIN PRN IV MODERATE PAIN; Start 11/21/16 at 07:00; Stop 11/22/16 at 06:59; Status DC Morphine Sulfate 1 mg PRN Q10MIN PRN IV SEVERE PAIN; Start 11/21/16 at 07:00; Stop 11/22/16 at 06:59; Status DC Ringer's Solution 1,000 ml @ 30 mls/hr Q24H IV ; Start 11/21/16 at 07:00; Stop 11/21/16 at 18:59; Status DC Lidocaine HCl 2 ml PRN 1X PRN ID PRIOR TO IV START; Start 11/21/16 at 07:00; Stop 11/22/16 at 06:59; Status DC Hydromorphone HCl (Dilaudid) 0.5 mg PRN Q10MIN PRN IV SEV PAIN, Second choice; Start 11/21/16 at 07:00; Stop 11/22/16 at 06:59; Status DC Prochlorperazine Edisylate (Compazine) 5 mg PACU PRN PRN IV NAUSEA, MRX1; Start 11/21/16 at 07:00; Stop 11/22/16 at 06:59; Status DC Hydralazine HCl (Apresoline) 10 mg PRN Q4HRS PRN IVP ELEVATED BP, SEE COMMENTS ; Start 11/20/16 at 15:30 Propofol 20 ml @ As Directed STK-MED ONCE IV ; Start 11/21/16 at 07:20; Stop at 07:21; Status DC Lidocaine HCl (Lidocaine Pf 2% Vial) 5 ml STK-MED ONCE .ROUTE ; Start 11/21/16 at 07:20; Stop 11/21/16 at 07:21; Status DC Ondansetron HCl (Zofran) 4 mg STK-MED ONCE .ROUTE ; Start 11/21/16 at 07:20; Stop 11/21/16 at 07:21; Status DC Dexamethasone Sodium Phosphate (Decadron) 20 mg STK-MED ONCE .ROUTE ; Start at 07:20; Stop 11/21/16 at 07:21; Status DC Phenylephrine HCl 1 mg STK-MED ONCE IV ; Start 11/21/16 at 07:21; Stop 11/21/16 at 07:22; Status DC Ephedrine Sulfate 50 mg STK-MED ONCE IV ; Start 11/21/16 at 07:21; Stop at 07:22; Status DC Fentanyl Citrate (Fentanyl 5ml Vial) 250 mcg STK-MED ONCE .ROUTE ; Start at 07:21; Stop 11/21/16 at 07:22; Status DC Rocuronium [place] (Zemuron) 50 mg STK-MED ONCE .ROUTE ; Start 11/21/16 at 07:22 ; Stop 11/21/16 at 07:23; Status DC Famotidine (Pepcid) 20 mg STK-MED ONCE .ROUTE ; Start 11/21/16 at 07:23; Stop at 07:24; Status DC Cellulose 1 each STK-MED ONCE .ROUTE Last administered on 11/21/16 10:29; Start 11/21/16 at 07:33; Stop 11/21/16 at 07:34; Status DC Bupivacaine HCl/ Epinephrine Bitart (Marcaine-Epi 0.5%-[id number]) 50 ml STK-MED ONCE .ROUTE Last administered on 11/21/16 08:43; Start 11/21/16 at 07:34; Stop 11/21/16 at 07:35; Status DC Cefazolin Sodium/ Dextrose 50 ml @ 100 mls/hr 1X PREOP ONCE IV Last administered on 11/21/16 08:25; Start 11/21/16 at 07:37; Stop 11/21/16 at 08:06 ; Status DC Succinylcholine Chloride (Anectine) 200 mg STK-MED ONCE .ROUTE ; Start 11/21/16 at 07:59; Stop 11/21/16 at 08:00; Status DC Sevoflurane (Ultane) 90 ml STK-MED ONCE IH ; Start 11/21/16 at 09:24; Stop 11/21 at 09:25; Status DC Rocuronium [place] (Zemuron) 50 mg STK-MED ONCE .ROUTE ; Start 11/21/16 at 09:25 ; Stop 11/21/16 at 09:26; Status DC Cellulose 1 each STK-MED ONCE .ROUTE ; Start 11/21/16 at 10:11; Stop 11/21/16 at 10:12; Status DC Sodium Bicarbonate 50 meq STK-MED ONCE .ROUTE ; Start 11/21/16 at 10:34; Stop at 10:35; Status DC Rocuronium [place] (Zemuron) 50 mg STK-MED ONCE .ROUTE ; Start 11/21/16 at 11:00 ; Stop 11/21/16 at 11:01; Status DC Sevoflurane (Ultane) 90 ml STK-MED ONCE IH ; Start 11/21/16 at 12:46; Stop 11/21 at 12:47; Status DC Piperacillin Sod/ Tazobactam Sod 3.375 gm/Sodium Chloride 50 ml @ 100 mls/hr Q6HRS IV Last administered on 11/26/16 11:40; Start 11/21/16 at 14:00; Stop at 14:43; Status DC Fentanyl Citrate (Fentanyl 2ml Vial) 25 mcg PRN Q2HR PRN IV PAIN Last administered on 11/24/16 02:49; Start 11/21/16 at 13:30; Stop 11/25/16 at 12:11 ; Status DC Fentanyl Citrate (Fentanyl 2ml Vial) 50 mcg PRN Q2HR PRN IV PAIN Last administered on 11/23/16 09:50; Start 11/21/16 at 13:30; Stop 11/25/16 at 12:11 ; Status DC Propofol 100 ml @ 0 mls/hr CONT PRN IV PER PROTOCOL Last administered on 21:08; Start 11/21/16 at 13:30; Stop 12/03/16 at 20:56; Status DC Fentanyl Citrate (Fentanyl 2ml Vial) 25 mcg PRN Q1HR PRN IV COMM Last administered on 11/27/16 06:03; Start 11/21/16 at 13:30 Fentanyl Citrate (Fentanyl 2ml Vial) 50 mcg PRN Q1HR PRN IV COMM Last administered on 11/26/16 23:08; Start 11/21/16 at 13:30 Chlorhexidine Gluconate (Peridex) 15 ml BID MM Last administered on 12/03/16 08:34; Start 11/21/16 at 21:00; Stop 12/03/16 at 20:56; Status DC Potassium Chloride/Dextrose/ Sod Cl 1,000 ml @ 100 mls/hr Q10H IV Last administered on 11/25/16 08:55; Start 11/21/16 at 15:00; Stop 11/25/16 at 21:59 ; Status DC Albuterol/ Ipratropium (Duoneb) 3 ml RTQID NEB Last administered on 12/04/16 15 :51; Start 11/23/16 at 16:00 Amino Acids/ Glycerin/ Electrolytes 1,000 ml @ 80 mls/hr [id number] IV ; Start at 16:15; Stop 11/23/16 at 18:21; Status DC Amino Acids/ Glycerin/ Electrolytes 1,000 ml @ 80 mls/hr [id number] IV Last administered on 11/24/16 08:00; Start 11/23/16 at 21:00; Stop 11/24/16 at 13:45 ; Status DC Amino Acids/ Glycerin/ Electrolytes 1,000 ml @ 80 mls/hr [id number] IV Last administered on 11/25/16 08:22; Start 11/25/16 at 08:00; Stop 11/25/16 at 21:59 ; Status DC Linezolid 300 ml @ 300 mls/hr Q12HR IV Last administered on 11/28/16 09:12; Start 11/25/16 at 10:00; Stop 11/28/16 at 12:42; Status DC Info 1 each PRN DAILY PRN MC SEE COMMENTS Last administered on 11/30/16 13:53 ; Start 11/25/16 at 11:15; Stop 12/01/16 at 09:11; Status DC Sodium Acetate 90 meq/Potassium Chloride 50 meq/ Potassium Phosphate 13.6 mmol/ Magnesium Sulfate 10 meq/ Calcium Gluconate 10 meq/ Multivitamins 10 ml/Chromium / Copper/Manganese/ Seleni/Zn 1 ml/ Total Parenteral Nutrition/Amino Acids/ Dextrose 1,512 ml @ 63 mls/hr TPN CONT IV Last administered on 11/25/16 22: 04; Start 11/25/16 at 22:00; Stop 11/26/16 at 21:59; Status DC Sodium Chloride 45 meq/Sodium Acetate 45 meq/ Potassium Chloride 50 meq/ Potassium Phosphate 17 mmol/ Magnesium Sulfate 16 meq/Calcium Gluconate 14 meq/ Multivitamins 10 ml/Chromium/ Copper/Manganese/ Seleni/Zn 1 ml/ Total Parenteral Nutrition/Amino Acids/Dextrose 1,512 ml @ 63 mls/hr TPN CONT IV Last administered on 11/26/16 21:01; Start 11/26/16 at 22:00; Stop 11/27/16 at 21:59; Status DC Potassium Phosphate 10 mmol/ Sodium Chloride 103.3333 ml @ 51.667 m... Q2H IV Last administered on 11/26/16 14:54; Start 11/26/16 at 13:30; Stop 11/26/16 at 17:29; Status DC Meropenem 500 mg/ Sodium Chloride 50 ml @ 100 mls/hr Q8HRS IV Last administered on 12/04/16 13:46; Start 11/26/16 at 15:00 Potassium Chloride/Dextrose/ Sod Cl 1,000 ml @ 37 mls/hr Q24H IV Last administered on 11/30/16 19:40; Start 11/26/16 at 20:00; Stop 12/01/16 at 09:11 ; Status DC Sodium Chloride 45 meq/Sodium Acetate 45 meq/ Potassium Chloride 50 meq/ Potassium Phosphate 17 mmol/ Magnesium Sulfate 12 meq/Calcium Gluconate 12 meq/ Multivitamins 10 ml/Chromium/ Copper/Manganese/ Seleni/Zn 1 ml/ Total Parenteral Nutrition/Amino Acids/Dextrose/ Fat Emulsion Intravenous 1,512 ml @ 63 mls/hr TPN CONT IV Last administered on 11/27/16 22:11; Start 11/27/16 at 22:00; Stop 11/28/16 at 21:59; Status DC Sodium Chloride 45 meq/Sodium Acetate 45 meq/ Potassium Chloride 50 meq/ Potassium Phosphate 17 mmol/ Magnesium Sulfate 12 meq/Calcium Gluconate 10 meq/ Multivitamins 10 ml/Chromium/ Copper/Manganese/ Seleni/Zn 1 ml/ Total Parenteral Nutrition/Amino Acids/Dextrose 1,512 ml @ 63 mls/hr TPN CONT IV Last administered on 11/28/16 21:35; Start 11/28/16 at 22:00; Stop 11/29/16 at 21:59; Status DC Sodium Chloride 45 meq/Sodium Acetate 45 meq/ Potassium Chloride 50 meq/ Potassium Phosphate 17 mmol/ Magnesium Sulfate 12 meq/ Multivitamins 10 ml/ Chromium/ Copper/Manganese/ Seleni/Zn 1 ml/ Total Parenteral Nutrition/Amino Acids/Dextrose 1,512 ml @ 63 mls/hr TPN CONT IV Last administered on 23:23; Start 11/29/16 at 22:00; Stop 11/30/16 at 21:59; Status DC Enoxaparin Sodium (Lovenox 40mg Syringe) 40 mg Q24H SQ Last administered on 12/04 09:33; Start 11/30/16 at 10:00 Sodium Chloride 45 meq/Sodium Acetate 45 meq/ Potassium Chloride 50 meq/ Potassium Phosphate 17 mmol/ Magnesium Sulfate 12 meq/ Multivitamins 10 ml/ Chromium/ Copper/Manganese/ Seleni/Zn 1 ml/ Total Parenteral Nutrition/Amino Acids/Dextrose 1,512 ml @ 63 mls/hr TPN CONT IV Last administered on 21:31; Start 11/30/16 at 22:00; Stop 12/01/16 at 21:59; Status DC Active Scripts Active Reported Aspir 81 (Aspirin) 81 Mg Tablet.dr 81 Mg PO DAILY Atorvastatin Calcium 10 Mg Tablet 1 Tab PO DAILY Aspirin 81 Mg Tab.chew 1 Tab PO DAILY Avodart (Dutasteride) 0.5 Mg Capsule 1 Cap PO DAILY Vitals/I & O Vital Sign - Last 24 Hours 12/03/16 12/03/16 12/03/16 12/03/16 19:00 19:28 20:00 20:00 Temp 98.8 98.8 Pulse 70 70 Resp B/P (MAP) 122/63 (82) 112/69 (83) Pulse Ox 94 100 97 O2 Delivery Nasal Cannula Nasal Cannula Nasal Cannula Nasal Cannula O2 Flow Rate 3.0 4.0 3.0 3.0 12/03/16 12/03/16 12/03/16 12/04/16 21:00 22:05 23:00 00:00 Temp 99.3 99.3 Pulse 68 66 64 68 Resp 28 27 29 23 B/P (MAP) 114/64 (81) 111/55 (73) 98/52 (67) 115/65 (82) Pulse Ox 96 96 100 98 O2 Delivery Nasal Cannula Nasal Cannula Nasal Cannula Nasal Cannula O2 Flow Rate 3.0 3.0 3.0 3.0 12/04/16 12/04/16 12/04/16 12/04/16 00:00 01:07 02:15 03:05 Temp 99.3 99.3 Pulse 67 63 64 Resp 22 20 20 B/P (MAP) 100/57 (71) 100/57 (71) 112/64 (80) Pulse Ox 98 98 96 O2 Delivery Nasal Cannula Nasal Cannula Nasal Cannula Nasal Cannula O2 Flow Rate 3.0 3.0 3.0 3.0 12/04/16 12/04/16 12/04/16 12/04/16 04:00 04:00 05:00 06:15 Temp 98.6 98.6 Pulse 64 65 60 Resp 20 18 18 B/P (MAP) 126/66 (86) 121/65 (83) 124/69 (87) Pulse Ox 96 95 95 O2 Delivery Nasal Cannula Nasal Cannula Nasal Cannula Nasal Cannula O2 Flow Rate 3.0 3.0 3.0 3.0 12/04/16 12/04/16 12/04/16 12/04/16 07:00 08:00 09:00 09:00 Temp 99.3 99.3 Pulse 63 62 61 Resp 27 26 27 B/P (MAP) 108/51 (70) 104/54 (71) 111/65 (80) Pulse Ox 95 98 96 98 O2 Delivery Room Air Room Air Room Air Room Air 12/04/16 12/04/16 12/04/16 12/04/16 10:00 11:00 12:00 12:47 Temp 98.9 98.9 Pulse 66 62 60 Resp 31 23 30 B/P (MAP) 107/57 (74) 94/51 (65) 89/51 (64) Pulse Ox 96 98 100 98 O2 Delivery Room Air Room Air Room Air Room Air 12/04/16 12/04/16 12/04/16 12/04/16 13:00 14:00 15:00 15:51 Pulse 62 63 64 Resp 30 29 21 B/P (MAP) 96/51 (66) 92/48 (63) 106/56 (73) Pulse Ox 98 98 98 97 O2 Delivery Room Air Room Air Room Air Room Air 12/04/16 12/04/16 12/04/16 16:00 17:00 18:00 Temp 99.3 99.3 Pulse 63 68 66 Resp 27 32 19 B/P (MAP) 104/53 (70) 101/57 (72) 113/55 (74) Pulse Ox 98 96 98 O2 Delivery Room Air Room Air Room Air Intake and Output 12/03/16 12/03/16 12/04/16 15:00 23:00 07:00 Intake Total 270 ml 760 ml 786 ml Output Total 1400 ml 1725 ml 1035 ml Balance -1130 ml -965 ml -249 ml SYDNEE MCCRACKEN MD Dec 04, 2016 18:35
[2016-12-04] MEDS: ATORVASTATIN CALCIUM 10 MG TABLET. PO SCH (22:28)
[2016-12-05] VITALS (24 sets, daily range): BP systolic 87–140; BP diastolic 52–71
[2016-12-05] MEDS: MEROPENEM 500 MG in IV NORMAL SALINE 50ML 50 ML IV SCH (05:36)
[2016-12-05] MEDS: IPRATRPIUM/ALBUTEROL 0.5/2.5MG 3 ML NEBU. NEB SCH ×4 (07:11→19:51)
--- NOTE | 2016-12-05 07:53 | PDOC ---
Infectious Disease Note Subjective Subjective awake ROS ROS GEN: Denies fevers, chills, sweats HEENT: Denies blurred vision, sore throat CV: Denies chest pain RESP: Denies shortness of air, cough GI: Denies n/v/d NEURO: Denies confusion, dizziness MSK: Denies weakness, joint pain/swelling Vital Sign Vital Signs Vital Signs Date Time Temp Pulse Resp B/P (MAP) Pulse Ox O2 Delivery O2 Flow Rate FiO2 12/05/16 07:11 97 Room Air 12/05/16 06:00 65 30 125/62 (83) 12/05/16 04:05 99.3 99.3 Physical Exam PHYSICAL EXAM GENERAL: NAD, Alert HEENT: PERRL, OC/OP NECK: Supple, no JVD, no LN LUNGS: Clear HEART: S1S2, no gallop, no murmur ABD: Soft, NT, no organomegaly, no rebound EXT: No edema, no cyanosis EMERGENCY MEDICINE NURSE PRACTITIONER: Alert, , no focal neurologic deficit SKIN: No rash IV: ok Objective Assessment Fever, Leukocytosis, stable Aspiration pneumonia. s/p bronch 11/22. GS: GPC & yeast. Final cx yeast only. 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 Acute respiratory failure Anemia s/p PRBCs 11/27 Pacemaker Dementia Plan Plan of Care Meropenem (started 11/26) d/c Monitor labs Supportive care DNR/DNI JANES BEJARANO MD Dec 05, 2016 07:53
[2016-12-05] MEDS: DUTASTERIDE 0.5 MG CAPSULE PO SCH (09:00)
[2016-12-05] MEDS: FAMOTIDINE 20 MG/2 ML VIAL IVP SCH ×2 (09:11→21:15)
[2016-12-05] MEDS: ENOXAPARIN 40 MG/0.4 ML SYRINGE. SQ SCH (09:11)
--- NOTE | 2016-12-05 09:41 | PDOC ---
G I PROGRESS NOTE Subjective Not as alert this morning. Appears in no distress. Objective Staff question g-tube feeding? Apparently did pretty well with swallow eval, but not yet able to feed po. Physical Exam Lungs clear anteriorly. RRR Abdomen soft, not distended nor apparently tender. G-tube. Review of Relevant I have reviewed the following items cordell (where applicable) has been applied. Labs Laboratory Tests Test 12/03/16 09:40 12/04/16 05:41 O2 Saturation 95 % (92-99) Arterial Blood pH 7.48 (7.35-7.45) Arterial Blood pCO2 at Patient Temp 36 mmHg (35-46) Arterial Blood pO2 at Patient Temp 82 mmHg (65-108) Arterial Blood HCO3 26 mmol/L (21-28) Arterial Blood Base Excess 3 mmol/L (-3-3) FiO2 30 Glucose (Fingerstick) 92 mg/dL (70-99) Microbiology 11/25/16 Blood Culture - Final, Complete NO GROWTH AFTER 5 DAYS 11/24/16 Gram Stain - Final, Complete 11/19/16 Urine Culture - Final, Complete 11/19/16 Urine Culture Result 1 ([facility]) - Final, Complete Medications Current Medications Sodium Chloride 1,000 ml @ 1,000 mls/hr 1X ONCE IV Last administered on 20:55; Start 11/19/16 at 20:45; Stop 11/19/16 at 21:44; Status DC Famotidine (Pepcid) 40 mg 1X ONCE IVP Last administered on 11/19/16 21:54; Start 11/19/16 at 21:30; Stop 11/19/16 at 21:31; Status DC Ondansetron HCl (Zofran) 4 mg PRN Q8HRS PRN IV NAUSEA/VOMITING Last administered on 11/19/16 21:54; Start 11/19/16 at 21:45; Stop 11/20/16 at 10:44 ; Status DC Morphine Sulfate 2 mg PRN Q2HR PRN IV PAIN; Start 11/19/16 at 21:45; Stop 11/20 at 21:44; Status DC Sodium Chloride 1,000 ml @ 110 mls/hr Q9H6M IV Last administered on 11/20/16 17:53; Start 11/19/16 at 21:41; Stop 11/20/16 at 21:40; Status DC Ondansetron HCl (Zofran) 4 mg PRN Q6HRS PRN IV NAUSEA/VOMITING; Start 11/20/16 at 10:42; Stop 11/21/16 at 10:41; Status DC Famotidine (Pepcid) 20 mg BID IVP Last administered on 12/05/16 09:11; Start at 11:00 Atorvastatin Calcium (Lipitor) 10 mg QHS PO Last administered on 12/04/16 22:28 ; Start 11/20/16 at 21:00 Dutasteride (Avodart) 0.5 mg DAILY PO ; Start 11/20/16 at 11:00 Labetalol HCl (Normodyne) 10 mg PRN Q2HR PRN IVP HYPERTENSION, SEE COMMENTS; Start 11/20/16 at 10:45 Acetaminophen (Tylenol) 500 mg PRN Q6HRS PRN PO MILD PAIN / TEMP Last administered on 12/04/16 10:03; Start 11/20/16 at 10:45 Ondansetron HCl (Zofran) 4 mg PRN Q6HRS PRN IV NAUSEA/VOMITING; Start 11/21/16 at 07:00; Stop 11/22/16 at 06:59; Status DC Fentanyl Citrate (Fentanyl 2ml Vial) 25 mcg PRN Q5MIN PRN IV MILD PAIN; Start 11/21/16 at 07:00; Stop 11/22/16 at 06:59; Status DC Fentanyl Citrate (Fentanyl 2ml Vial) 50 mcg PRN Q5MIN PRN IV MODERATE PAIN; Start 11/21/16 at 07:00; Stop 11/22/16 at 06:59; Status DC Morphine Sulfate 1 mg PRN Q10MIN PRN IV SEVERE PAIN; Start 11/21/16 at 07:00; Stop 11/22/16 at 06:59; Status DC Ringer's Solution 1,000 ml @ 30 mls/hr Q24H IV ; Start 11/21/16 at 07:00; Stop 11/21/16 at 18:59; Status DC Lidocaine HCl 2 ml PRN 1X PRN ID PRIOR TO IV START; Start 11/21/16 at 07:00; Stop 11/22/16 at 06:59; Status DC Hydromorphone HCl (Dilaudid) 0.5 mg PRN Q10MIN PRN IV SEV PAIN, Second choice; Start 11/21/16 at 07:00; Stop 11/22/16 at 06:59; Status DC Prochlorperazine Edisylate (Compazine) 5 mg PACU PRN PRN IV NAUSEA, MRX1; Start 11/21/16 at 07:00; Stop 11/22/16 at 06:59; Status DC Hydralazine HCl (Apresoline) 10 mg PRN Q4HRS PRN IVP ELEVATED BP, SEE COMMENTS ; Start 11/20/16 at 15:30 Propofol 20 ml @ As Directed STK-MED ONCE IV ; Start 11/21/16 at 07:20; Stop at 07:21; Status DC Lidocaine HCl (Lidocaine Pf 2% Vial) 5 ml STK-MED ONCE .ROUTE ; Start 11/21/16 at 07:20; Stop 11/21/16 at 07:21; Status DC Ondansetron HCl (Zofran) 4 mg STK-MED ONCE .ROUTE ; Start 11/21/16 at 07:20; Stop 11/21/16 at 07:21; Status DC Dexamethasone Sodium Phosphate (Decadron) 20 mg STK-MED ONCE .ROUTE ; Start at 07:20; Stop 11/21/16 at 07:21; Status DC Phenylephrine HCl 1 mg STK-MED ONCE IV ; Start 11/21/16 at 07:21; Stop 11/21/16 at 07:22; Status DC Ephedrine Sulfate 50 mg STK-MED ONCE IV ; Start 11/21/16 at 07:21; Stop at 07:22; Status DC Fentanyl Citrate (Fentanyl 5ml Vial) 250 mcg STK-MED ONCE .ROUTE ; Start at 07:21; Stop 11/21/16 at 07:22; Status DC Rocuronium [place] (Zemuron) 50 mg STK-MED ONCE .ROUTE ; Start 11/21/16 at 07:22 ; Stop 11/21/16 at 07:23; Status DC Famotidine (Pepcid) 20 mg STK-MED ONCE .ROUTE ; Start 11/21/16 at 07:23; Stop at 07:24; Status DC Cellulose 1 each STK-MED ONCE .ROUTE Last administered on 11/21/16 10:29; Start 11/21/16 at 07:33; Stop 11/21/16 at 07:34; Status DC Bupivacaine HCl/ Epinephrine Bitart (Marcaine-Epi 0.5%-[id number]) 50 ml STK-MED ONCE .ROUTE Last administered on 11/21/16 08:43; Start 11/21/16 at 07:34; Stop 11/21/16 at 07:35; Status DC Cefazolin Sodium/ Dextrose 50 ml @ 100 mls/hr 1X PREOP ONCE IV Last administered on 11/21/16 08:25; Start 11/21/16 at 07:37; Stop 11/21/16 at 08:06 ; Status DC Succinylcholine Chloride (Anectine) 200 mg STK-MED ONCE .ROUTE ; Start 11/21/16 at 07:59; Stop 11/21/16 at 08:00; Status DC Sevoflurane (Ultane) 90 ml STK-MED ONCE IH ; Start 11/21/16 at 09:24; Stop 11/21 at 09:25; Status DC Rocuronium [place] (Zemuron) 50 mg STK-MED ONCE .ROUTE ; Start 11/21/16 at 09:25 ; Stop 11/21/16 at 09:26; Status DC Cellulose 1 each STK-MED ONCE .ROUTE ; Start 11/21/16 at 10:11; Stop 11/21/16 at 10:12; Status DC Sodium Bicarbonate 50 meq STK-MED ONCE .ROUTE ; Start 11/21/16 at 10:34; Stop at 10:35; Status DC Rocuronium [place] (Zemuron) 50 mg STK-MED ONCE .ROUTE ; Start 11/21/16 at 11:00 ; Stop 11/21/16 at 11:01; Status DC Sevoflurane (Ultane) 90 ml STK-MED ONCE IH ; Start 11/21/16 at 12:46; Stop 11/21 at 12:47; Status DC Piperacillin Sod/ Tazobactam Sod 3.375 gm/Sodium Chloride 50 ml @ 100 mls/hr Q6HRS IV Last administered on 11/26/16 11:40; Start 11/21/16 at 14:00; Stop at 14:43; Status DC Fentanyl Citrate (Fentanyl 2ml Vial) 25 mcg PRN Q2HR PRN IV PAIN Last administered on 11/24/16 02:49; Start 11/21/16 at 13:30; Stop 11/25/16 at 12:11 ; Status DC Fentanyl Citrate (Fentanyl 2ml Vial) 50 mcg PRN Q2HR PRN IV PAIN Last administered on 11/23/16 09:50; Start 11/21/16 at 13:30; Stop 11/25/16 at 12:11 ; Status DC Propofol 100 ml @ 0 mls/hr CONT PRN IV PER PROTOCOL Last administered on 21:08; Start 11/21/16 at 13:30; Stop 12/03/16 at 20:56; Status DC Fentanyl Citrate (Fentanyl 2ml Vial) 25 mcg PRN Q1HR PRN IV COMM Last administered on 11/27/16 06:03; Start 11/21/16 at 13:30 Fentanyl Citrate (Fentanyl 2ml Vial) 50 mcg PRN Q1HR PRN IV COMM Last administered on 11/26/16 23:08; Start 11/21/16 at 13:30 Chlorhexidine Gluconate (Peridex) 15 ml BID MM Last administered on 12/03/16 08:34; Start 11/21/16 at 21:00; Stop 12/03/16 at 20:56; Status DC Potassium Chloride/Dextrose/ Sod Cl 1,000 ml @ 100 mls/hr Q10H IV Last administered on 11/25/16 08:55; Start 11/21/16 at 15:00; Stop 11/25/16 at 21:59 ; Status DC Albuterol/ Ipratropium (Duoneb) 3 ml RTQID NEB Last administered on 12/05/16 07 :11; Start 11/23/16 at 16:00 Amino Acids/ Glycerin/ Electrolytes 1,000 ml @ 80 mls/hr [id number] IV ; Start at 16:15; Stop 11/23/16 at 18:21; Status DC Amino Acids/ Glycerin/ Electrolytes 1,000 ml @ 80 mls/hr [id number] IV Last administered on 11/24/16 08:00; Start 11/23/16 at 21:00; Stop 11/24/16 at 13:45 ; Status DC Amino Acids/ Glycerin/ Electrolytes 1,000 ml @ 80 mls/hr [id number] IV Last administered on 11/25/16 08:22; Start 11/25/16 at 08:00; Stop 11/25/16 at 21:59 ; Status DC Linezolid 300 ml @ 300 mls/hr Q12HR IV Last administered on 11/28/16 09:12; Start 11/25/16 at 10:00; Stop 11/28/16 at 12:42; Status DC Info 1 each PRN DAILY PRN MC SEE COMMENTS Last administered on 11/30/16 13:53 ; Start 11/25/16 at 11:15; Stop 12/01/16 at 09:11; Status DC Sodium Acetate 90 meq/Potassium Chloride 50 meq/ Potassium Phosphate 13.6 mmol/ Magnesium Sulfate 10 meq/ Calcium Gluconate 10 meq/ Multivitamins 10 ml/Chromium / Copper/Manganese/ Seleni/Zn 1 ml/ Total Parenteral Nutrition/Amino Acids/ Dextrose 1,512 ml @ 63 mls/hr TPN CONT IV Last administered on 11/25/16 22: 04; Start 11/25/16 at 22:00; Stop 11/26/16 at 21:59; Status DC Sodium Chloride 45 meq/Sodium Acetate 45 meq/ Potassium Chloride 50 meq/ Potassium Phosphate 17 mmol/ Magnesium Sulfate 16 meq/Calcium Gluconate 14 meq/ Multivitamins 10 ml/Chromium/ Copper/Manganese/ Seleni/Zn 1 ml/ Total Parenteral Nutrition/Amino Acids/Dextrose 1,512 ml @ 63 mls/hr TPN CONT IV Last administered on 11/26/16 21:01; Start 11/26/16 at 22:00; Stop 11/27/16 at 21:59; Status DC Potassium Phosphate 10 mmol/ Sodium Chloride 103.3333 ml @ 51.667 m... Q2H IV Last administered on 11/26/16 14:54; Start 11/26/16 at 13:30; Stop 11/26/16 at 17:29; Status DC Meropenem 500 mg/ Sodium Chloride 50 ml @ 100 mls/hr Q8HRS IV Last administered on 12/05/16 05:36; Start 11/26/16 at 15:00; Stop 12/05/16 at 07:53; Status DC Potassium Chloride/Dextrose/ Sod Cl 1,000 ml @ 37 mls/hr Q24H IV Last administered on 11/30/16 19:40; Start 11/26/16 at 20:00; Stop 12/01/16 at 09:11 ; Status DC Sodium Chloride 45 meq/Sodium Acetate 45 meq/ Potassium Chloride 50 meq/ Potassium Phosphate 17 mmol/ Magnesium Sulfate 12 meq/Calcium Gluconate 12 meq/ Multivitamins 10 ml/Chromium/ Copper/Manganese/ Seleni/Zn 1 ml/ Total Parenteral Nutrition/Amino Acids/Dextrose/ Fat Emulsion Intravenous 1,512 ml @ 63 mls/hr TPN CONT IV Last administered on 11/27/16 22:11; Start 11/27/16 at 22:00; Stop 11/28/16 at 21:59; Status DC Sodium Chloride 45 meq/Sodium Acetate 45 meq/ Potassium Chloride 50 meq/ Potassium Phosphate 17 mmol/ Magnesium Sulfate 12 meq/Calcium Gluconate 10 meq/ Multivitamins 10 ml/Chromium/ Copper/Manganese/ Seleni/Zn 1 ml/ Total Parenteral Nutrition/Amino Acids/Dextrose 1,512 ml @ 63 mls/hr TPN CONT IV Last administered on 11/28/16 21:35; Start 11/28/16 at 22:00; Stop 11/29/16 at 21:59; Status DC Sodium Chloride 45 meq/Sodium Acetate 45 meq/ Potassium Chloride 50 meq/ Potassium Phosphate 17 mmol/ Magnesium Sulfate 12 meq/ Multivitamins 10 ml/ Chromium/ Copper/Manganese/ Seleni/Zn 1 ml/ Total Parenteral Nutrition/Amino Acids/Dextrose 1,512 ml @ 63 mls/hr TPN CONT IV Last administered on 23:23; Start 11/29/16 at 22:00; Stop 11/30/16 at 21:59; Status DC Enoxaparin Sodium (Lovenox 40mg Syringe) 40 mg Q24H SQ Last administered on 12/05 09:11; Start 11/30/16 at 10:00 Sodium Chloride 45 meq/Sodium Acetate 45 meq/ Potassium Chloride 50 meq/ Potassium Phosphate 17 mmol/ Magnesium Sulfate 12 meq/ Multivitamins 10 ml/ Chromium/ Copper/Manganese/ Seleni/Zn 1 ml/ Total Parenteral Nutrition/Amino Acids/Dextrose 1,512 ml @ 63 mls/hr TPN CONT IV Last administered on t 21:31; Start 11/30/16 at 22:00; Stop 12/01/16 at 21:59; Status DC Active Scripts Active Reported Aspir 81 (Aspirin) 81 Mg Tablet.dr 81 Mg PO DAILY Atorvastatin Calcium 10 Mg Tablet 1 Tab PO DAILY Aspirin 81 Mg Tab.chew 1 Tab PO DAILY Avodart (Dutasteride) 0.5 Mg Capsule 1 Cap PO DAILY Vitals/I & O Vital Sign - Last 24 Hours 12/04/16 12/04/16 12/04/16 12/04/16 10:00 11:00 12:00 12:47 Temp 98.9 98.9 Pulse 66 62 60 Resp 31 23 30 B/P (MAP) 107/57 (74) 94/51 (65) 89/51 (64) Pulse Ox 96 98 100 98 O2 Delivery Room Air Room Air Room Air Room Air 12/04/16 12/04/16 12/04/16 12/04/16 13:00 14:00 15:00 15:51 Pulse 62 63 64 Resp 30 29 21 B/P (MAP) 96/51 (66) 92/48 (63) 106/56 (73) Pulse Ox 98 98 98 97 O2 Delivery Room Air Room Air Room Air Room Air 12/04/16 12/04/16 12/04/16 12/04/16 16:00 17:00 18:00 19:00 Temp 99.3 99.3 Pulse 63 68 66 64 Resp 27 32 19 28 B/P (MAP) 104/53 (70) 101/57 (72) 113/55 (74) 93/70 (78) Pulse Ox 98 96 98 97 O2 Delivery Room Air Room Air Room Air Room Air 12/04/16 12/04/16 12/04/16 12/04/16 19:42 19:50 20:00 20:00 Temp 99.6 99.6 Pulse 64 Resp 24 B/P (MAP) 117/64 (81) Pulse Ox 98 98 O2 Delivery Room Air Room Air Room Air 12/04/16 12/04/16 12/04/16 12/05/16 21:00 22:00 23:03 00:00 Temp 99.8 99.8 Pulse 66 64 64 64 Resp 29 30 28 28 B/P (MAP) 128/63 (84) 114/65 (81) 119/70 (86) 125/68 (87) Pulse Ox 97 97 96 96 O2 Delivery Room Air Room Air Room Air Room Air 12/05/16 12/05/16 12/05/16 12/05/16 00:00 01:00 02:26 03:00 Pulse 66 65 64 Resp 27 24 29 B/P (MAP) 125/68 (87) 140/64 (89) 135/53 (80) Pulse Ox 96 97 96 O2 Delivery Room Air Room Air Room Air Room Air 12/05/16 12/05/16 12/05/16 12/05/16 04:00 04:05 05:05 06:00 Temp 99.3 99.3 Pulse 74 69 65 Resp 29 29 30 B/P (MAP) 129/62 (84) 138/63 (88) 125/62 (83) Pulse Ox 95 96 98 O2 Delivery Room Air Room Air Room Air Nasal Cannula 12/05/16 12/05/16 12/05/16 12/05/16 07:00 07:11 08:00 08:00 Temp 99.8 99.8 Pulse 66 69 Resp 29 37 B/P (MAP) 99/63 (75) 104/57 (73) Pulse Ox 98 97 96 O2 Delivery Room Air Room Air Room Air Room Air 12/05/16 09:00 Pulse 67 Resp 29 B/P (MAP) 104/58 (73) Pulse Ox 98 O2 Delivery Room Air Intake and Output 12/04/16 12/04/16 12/05/16 15:00 23:00 07:00 Intake Total 135 ml 762 ml 635 ml Output Total 575 ml 880 ml 1070 ml Balance -440 ml -118 ml -435 ml Problem List Problems Medical Problems: (1) Upper GI bleeding Status: Acute Assessment Para-esophageal hernia, s/p repair. Slow progress. Plan of Care: Continue current Tx, Mgmt Plan of Care Note Will defer to surgery re: starting G-tube feedings. WILBERTO ROBERTS MD Dec 05, 2016 09:41
--- NOTE | 2016-12-05 10:10 | PDOC ---
PULMONARY PROGRESS NOTES Subjective PT EXTUBATED 12/02 AWAKE AND ALERT AT TIMES CONFUSED Vitals Vital Signs Date Time Temp Pulse Resp B/P (MAP) Pulse Ox O2 Delivery O2 Flow Rate FiO2 12/05/16 09:00 67 29 104/58 (73) 98 Room Air 12/05/16 08:00 99.8 99.8 HEENT: Other Lungs: Clear Cardiovascular: S1, S2 Abdomen: Soft, Non-tender, Other Neuro Exam: Alert Extremities: No Edema Skin: Warm Labs Laboratory Tests Test 12/04/16 05:41 Glucose (Fingerstick) 92 mg/dL (70-99) Medications Active Scripts Medications Dose Route/Sig Max Daily Dose Days Date Category Aspir 81 (Aspirin) 81 Mg Tablet.dr 81 Mg PO DAILY 06/08/14 Reported Atorvastatin Calcium 10 Mg Tablet 1 Tab PO DAILY 03/10/14 Reported Aspirin 81 Mg Tab.chew 1 Tab PO DAILY 01/29/14 Reported Avodart (Dutasteride) 0.5 Mg Capsule 1 Cap PO DAILY 01/29/14 Reported Impression . ACUTE RESP FAILURE MULTIFACTORIAL ASPIRATION PNEUMONIA S/P SEE OP NOTE Laparoscopic repair of large paraesophageal hernia, MELENA ARF ABNL CXR POSSIBLE EDEMA AND PNEUMONIA MALNUTRITION DEMENTIA Plan . SPEECH FOLLOW UP UP TO CHAIR PT/OT EXTUBATED 12/02 OK TO TRANSFER TO [facility] SPOKE WITH FAMILY [facility] 11/04, BAL NEGATIVE ANTIBX BRONCHODILATORS SABRINA VALLEJO MD Dec 05, 2016 10:09
--- NOTE | 2016-12-05 10:18 | PDOC ---
PROGRESS NOTES Chief Complaint Chief Complaint hematemesis, GI bleed, upper, req. surgery on admit 1. 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 2. Acute respiratory failure: On mechanical ventilation, aspiration pneumonia. sputum cx + GNR. on zyvox and meropenum with ID 3. Leukocytosis 4. Hx Arrhythmia NOS: hx pacer placement 5. Prophylaxis: SCDs; 6. 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 7. hypophosphatemia: 8. DNR now, off vent, on RA, breathing well, but tachypneic 9. OMARI, 10. moderate malnutrition, not POA History of Present Illness History of Present Illness awake, but lethargic, not very verbally responsive, follows some commands PEG feeds Vitals Vitals Vital Signs Date Time Temp Pulse Resp B/P (MAP) Pulse Ox O2 Delivery O2 Flow Rate FiO2 12/05/16 10:00 66 16 93/55 (68) 98 Room Air 12/05/16 08:00 99.8 99.8 Physical Exam Physical Exam General: Alert, Cooperative, No acute distress, Other (restless) Heart: Regular rate, Normal S1, Normal S2 Lungs: Clear Abdomen: Soft, Other ( gtube in place, incision with some serosang drainage and mild erythema to lower incision, no induration ) Extremities: No clubbing, No cyanosis Skin: No rashes, No breakdown Review of Systems Review of Systems no new, not very verbal Assessment and Plan Assessmemt and Plan Problems Medical Problems: (1) Upper GI bleeding Status: Acute Problems: Comment Review of Relevant I have reviewed the following items cordell (where applicable) has been applied. Labs Laboratory Tests Test 12/04/16 05:41 Glucose (Fingerstick) 92 mg/dL (70-99) Microbiology 11/25/16 Blood Culture - Final, Complete NO GROWTH AFTER 5 DAYS 11/24/16 Gram Stain - Final, Complete 11/19/16 Urine Culture - Final, Complete 11/19/16 Urine Culture Result 1 ([facility]) - Final, Complete Medications Current Medications Sodium Chloride 1,000 ml @ 1,000 mls/hr 1X ONCE IV Last administered on t 20:55; Start 7/17/17 at 20:45; Stop 11/19/16 at 21:44; Status DC Famotidine (Pepcid) 40 mg 1X ONCE IVP Last administered on 11/19/16 21:54; Start 11/19/16 at 21:30; Stop 11/19/16 at 21:31; Status DC Ondansetron HCl (Zofran) 4 mg PRN Q8HRS PRN IV NAUSEA/VOMITING Last administered on 11/19/16 21:54; Start 11/19/16 at 21:45; Stop 11/20/16 at 10:44 ; Status DC Morphine Sulfate 2 mg PRN Q2HR PRN IV PAIN; Start 11/19/16 at 21:45; Stop 11/20 at 21:44; Status DC Sodium Chloride 1,000 ml @ 110 mls/hr Q9H6M IV Last administered on 11/20/16 17:53; Start 11/19/16 at 21:41; Stop 11/20/16 at 21:40; Status DC Ondansetron HCl (Zofran) 4 mg PRN Q6HRS PRN IV NAUSEA/VOMITING; Start 11/20/16 at 10:42; Stop 11/21/16 at 10:41; Status DC Famotidine (Pepcid) 20 mg BID IVP Last administered on 12/05/16 09:11; Start at 11:00 Atorvastatin Calcium (Lipitor) 10 mg QHS PO Last administered on 12/04/16 22:28 ; Start 11/20/16 at 21:00 Dutasteride (Avodart) 0.5 mg DAILY PO ; Start 11/20/16 at 11:00 Labetalol HCl (Normodyne) 10 mg PRN Q2HR PRN IVP HYPERTENSION, SEE COMMENTS; Start 11/20/16 at 10:45 Acetaminophen (Tylenol) 500 mg PRN Q6HRS PRN PO MILD PAIN / TEMP Last administered on 12/04/16 10:03; Start 11/20/16 at 10:45 Ondansetron HCl (Zofran) 4 mg PRN Q6HRS PRN IV NAUSEA/VOMITING; Start 11/21/16 at 07:00; Stop 11/22/16 at 06:59; Status DC Fentanyl Citrate (Fentanyl 2ml Vial) 25 mcg PRN Q5MIN PRN IV MILD PAIN; Start 11/21/16 at 07:00; Stop 11/22/16 at 06:59; Status DC Fentanyl Citrate (Fentanyl 2ml Vial) 50 mcg PRN Q5MIN PRN IV MODERATE PAIN; Start 11/21/16 at 07:00; Stop 11/22/16 at 06:59; Status DC Morphine Sulfate 1 mg PRN Q10MIN PRN IV SEVERE PAIN; Start 11/21/16 at 07:00; Stop 11/22/16 at 06:59; Status DC Ringer's Solution 1,000 ml @ 30 mls/hr Q24H IV ; Start 11/21/16 at 07:00; Stop 11/21/16 at 18:59; Status DC Lidocaine HCl 2 ml PRN 1X PRN ID PRIOR TO IV START; Start 11/21/16 at 07:00; Stop 11/22/16 at 06:59; Status DC Hydromorphone HCl (Dilaudid) 0.5 mg PRN Q10MIN PRN IV SEV PAIN, Second choice; Start 11/21/16 at 07:00; Stop 11/22/16 at 06:59; Status DC Prochlorperazine Edisylate (Compazine) 5 mg PACU PRN PRN IV NAUSEA, MRX1; Start 11/21/16 at 07:00; Stop 11/22/16 at 06:59; Status DC Hydralazine HCl (Apresoline) 10 mg PRN Q4HRS PRN IVP ELEVATED BP, SEE COMMENTS ; Start 11/20/16 at 15:30 Propofol 20 ml @ As Directed STK-MED ONCE IV ; Start 11/21/16 at 07:20; Stop at 07:21; Status DC Lidocaine HCl (Lidocaine Pf 2% Vial) 5 ml STK-MED ONCE .ROUTE ; Start 11/21/16 at 07:20; Stop 11/21/16 at 07:21; Status DC Ondansetron HCl (Zofran) 4 mg STK-MED ONCE .ROUTE ; Start 11/21/16 at 07:20; Stop 11/21/16 at 07:21; Status DC Dexamethasone Sodium Phosphate (Decadron) 20 mg STK-MED ONCE .ROUTE ; Start at 07:20; Stop 11/21/16 at 07:21; Status DC Phenylephrine HCl 1 mg STK-MED ONCE IV ; Start 11/21/16 at 07:21; Stop 11/21/16 at 07:22; Status DC Ephedrine Sulfate 50 mg STK-MED ONCE IV ; Start 11/21/16 at 07:21; Stop at 07:22; Status DC Fentanyl Citrate (Fentanyl 5ml Vial) 250 mcg STK-MED ONCE .ROUTE ; Start at 07:21; Stop 11/21/16 at 07:22; Status DC Rocuronium [place] (Zemuron) 50 mg STK-MED ONCE .ROUTE ; Start 11/21/16 at 07:22 ; Stop 11/21/16 at 07:23; Status DC Famotidine (Pepcid) 20 mg STK-MED ONCE .ROUTE ; Start 11/21/16 at 07:23; Stop at 07:24; Status DC Cellulose 1 each STK-MED ONCE .ROUTE Last administered on 11/21/16 10:29; Start 11/21/16 at 07:33; Stop 11/21/16 at 07:34; Status DC Bupivacaine HCl/ Epinephrine Bitart (Marcaine-Epi 0.5%-[id number]) 50 ml STK-MED ONCE .ROUTE Last administered on 11/21/16 08:43; Start 11/21/16 at 07:34; Stop 11/21/16 at 07:35; Status DC Cefazolin Sodium/ Dextrose 50 ml @ 100 mls/hr 1X PREOP ONCE IV Last administered on 11/21/16 08:25; Start 11/21/16 at 07:37; Stop 11/21/16 at 08:06 ; Status DC Succinylcholine Chloride (Anectine) 200 mg STK-MED ONCE .ROUTE ; Start 11/21/16 at 07:59; Stop 11/21/16 at 08:00; Status DC Sevoflurane (Ultane) 90 ml STK-MED ONCE IH ; Start 11/21/16 at 09:24; Stop 11/21 at 09:25; Status DC Rocuronium [place] (Zemuron) 50 mg STK-MED ONCE .ROUTE ; Start 11/21/16 at 09:25 ; Stop 11/21/16 at 09:26; Status DC Cellulose 1 each STK-MED ONCE .ROUTE ; Start 11/21/16 at 10:11; Stop 11/21/16 at 10:12; Status DC Sodium Bicarbonate 50 meq STK-MED ONCE .ROUTE ; Start 11/21/16 at 10:34; Stop at 10:35; Status DC Rocuronium [place] (Zemuron) 50 mg STK-MED ONCE .ROUTE ; Start 11/21/16 at 11:00 ; Stop 11/21/16 at 11:01; Status DC Sevoflurane (Ultane) 90 ml STK-MED ONCE IH ; Start 11/21/16 at 12:46; Stop 11/21 at 12:47; Status DC Piperacillin Sod/ Tazobactam Sod 3.375 gm/Sodium Chloride 50 ml @ 100 mls/hr Q6HRS IV Last administered on 11/26/16 11:40; Start 11/21/16 at 14:00; Stop at 14:43; Status DC Fentanyl Citrate (Fentanyl 2ml Vial) 25 mcg PRN Q2HR PRN IV PAIN Last administered on 11/24/16 02:49; Start 11/21/16 at 13:30; Stop 11/25/16 at 12:11 ; Status DC Fentanyl Citrate (Fentanyl 2ml Vial) 50 mcg PRN Q2HR PRN IV PAIN Last administered on 11/23/16 09:50; Start 11/21/16 at 13:30; Stop 11/25/16 at 12:11 ; Status DC Propofol 100 ml @ 0 mls/hr CONT PRN IV PER PROTOCOL Last administered on 21:08; Start 11/21/16 at 13:30; Stop 12/03/16 at 20:56; Status DC Fentanyl Citrate (Fentanyl 2ml Vial) 25 mcg PRN Q1HR PRN IV COMM Last administered on 11/27/16 06:03; Start 11/21/16 at 13:30 Fentanyl Citrate (Fentanyl 2ml Vial) 50 mcg PRN Q1HR PRN IV COMM Last administered on 11/26/16 23:08; Start 11/21/16 at 13:30 Chlorhexidine Gluconate (Peridex) 15 ml BID MM Last administered on 12/03/16 08:34; Start 11/21/16 at 21:00; Stop 12/03/16 at 20:56; Status DC Potassium Chloride/Dextrose/ Sod Cl 1,000 ml @ 100 mls/hr Q10H IV Last administered on 11/25/16 08:55; Start 11/21/16 at 15:00; Stop 11/25/16 at 21:59 ; Status DC Albuterol/ Ipratropium (Duoneb) 3 ml RTQID NEB Last administered on 12/05/16 07 :11; Start 11/23/16 at 16:00 Amino Acids/ Glycerin/ Electrolytes 1,000 ml @ 80 mls/hr [id number] IV ; Start at 16:15; Stop 11/23/16 at 18:21; Status DC Amino Acids/ Glycerin/ Electrolytes 1,000 ml @ 80 mls/hr [id number] IV Last administered on 11/24/16 08:00; Start 11/23/16 at 21:00; Stop 11/24/16 at 13:45 ; Status DC Amino Acids/ Glycerin/ Electrolytes 1,000 ml @ 80 mls/hr [id number] IV Last administered on 11/25/16 08:22; Start 11/25/16 at 08:00; Stop 11/25/16 at 21:59 ; Status DC Linezolid 300 ml @ 300 mls/hr Q12HR IV Last administered on 11/28/16 09:12; Start 11/25/16 at 10:00; Stop 11/28/16 at 12:42; Status DC Info 1 each PRN DAILY PRN MC SEE COMMENTS Last administered on 11/30/16 13:53 ; Start 11/25/16 at 11:15; Stop 12/01/16 at 09:11; Status DC Sodium Acetate 90 meq/Potassium Chloride 50 meq/ Potassium Phosphate 13.6 mmol/ Magnesium Sulfate 10 meq/ Calcium Gluconate 10 meq/ Multivitamins 10 ml/Chromium / Copper/Manganese/ Seleni/Zn 1 ml/ Total Parenteral Nutrition/Amino Acids/ Dextrose 1,512 ml @ 63 mls/hr TPN CONT IV Last administered on 11/25/16 22: 04; Start 11/25/16 at 22:00; Stop 11/26/16 at 21:59; Status DC Sodium Chloride 45 meq/Sodium Acetate 45 meq/ Potassium Chloride 50 meq/ Potassium Phosphate 17 mmol/ Magnesium Sulfate 16 meq/Calcium Gluconate 14 meq/ Multivitamins 10 ml/Chromium/ Copper/Manganese/ Seleni/Zn 1 ml/ Total Parenteral Nutrition/Amino Acids/Dextrose 1,512 ml @ 63 mls/hr TPN CONT IV Last administered on 11/26/16 21:01; Start 11/26/16 at 22:00; Stop 11/27/16 at 21:59; Status DC Potassium Phosphate 10 mmol/ Sodium Chloride 103.3333 ml @ 51.667 m... Q2H IV Last administered on 11/26/16 14:54; Start 11/26/16 at 13:30; Stop 11/26/16 at 17:29; Status DC Meropenem 500 mg/ Sodium Chloride 50 ml @ 100 mls/hr Q8HRS IV Last administered on 12/05/16 05:36; Start 11/26/16 at 15:00; Stop 12/05/16 at 07:53; Status DC Potassium Chloride/Dextrose/ Sod Cl 1,000 ml @ 37 mls/hr Q24H IV Last administered on 11/30/16 19:40; Start 11/26/16 at 20:00; Stop 12/01/16 at 09:11 ; Status DC Sodium Chloride 45 meq/Sodium Acetate 45 meq/ Potassium Chloride 50 meq/ Potassium Phosphate 17 mmol/ Magnesium Sulfate 12 meq/Calcium Gluconate 12 meq/ Multivitamins 10 ml/Chromium/ Copper/Manganese/ Seleni/Zn 1 ml/ Total Parenteral Nutrition/Amino Acids/Dextrose/ Fat Emulsion Intravenous 1,512 ml @ 63 mls/hr TPN CONT IV Last administered on 11/27/16 22:11; Start 11/27/16 at 22:00; Stop 11/28/16 at 21:59; Status DC Sodium Chloride 45 meq/Sodium Acetate 45 meq/ Potassium Chloride 50 meq/ Potassium Phosphate 17 mmol/ Magnesium Sulfate 12 meq/Calcium Gluconate 10 meq/ Multivitamins 10 ml/Chromium/ Copper/Manganese/ Seleni/Zn 1 ml/ Total Parenteral Nutrition/Amino Acids/Dextrose 1,512 ml @ 63 mls/hr TPN CONT IV Last administered on 11/28/16 21:35; Start 11/28/16 at 22:00; Stop 11/29/16 at 21:59; Status DC Sodium Chloride 45 meq/Sodium Acetate 45 meq/ Potassium Chloride 50 meq/ Potassium Phosphate 17 mmol/ Magnesium Sulfate 12 meq/ Multivitamins 10 ml/ Chromium/ Copper/Manganese/ Seleni/Zn 1 ml/ Total Parenteral Nutrition/Amino Acids/Dextrose 1,512 ml @ 63 mls/hr TPN CONT IV Last administered on 23:23; Start 11/29/16 at 22:00; Stop 11/30/16 at 21:59; Status DC Enoxaparin Sodium (Lovenox 40mg Syringe) 40 mg Q24H SQ Last administered on 12/05 09:11; Start 11/30/16 at 10:00 Sodium Chloride 45 meq/Sodium Acetate 45 meq/ Potassium Chloride 50 meq/ Potassium Phosphate 17 mmol/ Magnesium Sulfate 12 meq/ Multivitamins 10 ml/ Chromium/ Copper/Manganese/ Seleni/Zn 1 ml/ Total Parenteral Nutrition/Amino Acids/Dextrose 1,512 ml @ 63 mls/hr TPN CONT IV Last administered on 21:31; Start 11/30/16 at 22:00; Stop 12/01/16 at 21:59; Status DC Active Scripts Active Reported Aspir 81 (Aspirin) 81 Mg Tablet.dr 81 Mg PO DAILY Atorvastatin Calcium 10 Mg Tablet 1 Tab PO DAILY Aspirin 81 Mg Tab.chew 1 Tab PO DAILY Avodart (Dutasteride) 0.5 Mg Capsule 1 Cap PO DAILY Vitals/I & O Vital Sign - Last 24 Hours 12/04/16 12/04/16 12/04/16 12/04/16 11:00 12:00 12:47 13:00 Temp 98.9 98.9 Pulse 62 60 62 Resp 23 30 30 B/P (MAP) 94/51 (65) 89/51 (64) 96/51 (66) Pulse Ox 98 100 98 98 O2 Delivery Room Air Room Air Room Air Room Air 12/04/16 12/04/16 12/04/16 12/04/16 14:00 15:00 15:51 16:00 Temp 99.3 99.3 Pulse 63 64 63 Resp 29 21 27 B/P (MAP) 92/48 (63) 106/56 (73) 104/53 (70) Pulse Ox 98 98 97 98 O2 Delivery Room Air Room Air Room Air Room Air 12/04/16 12/04/16 12/04/16 12/04/16 17:00 18:00 19:00 19:42 Temp 99.6 99.6 Pulse 68 66 64 Resp 32 19 28 B/P (MAP) 101/57 (72) 113/55 (74) 93/70 (78) Pulse Ox 96 98 97 O2 Delivery Room Air Room Air Room Air 12/04/16 12/04/16 12/04/16 12/04/16 19:50 20:00 20:00 21:00 Pulse 64 66 Resp 24 29 B/P (MAP) 117/64 (81) 128/63 (84) Pulse Ox 98 98 97 O2 Delivery Room Air Room Air Room Air Room Air 12/04/16 12/04/16 12/05/16 12/05/16 22:00 23:03 00:00 00:00 Temp 99.8 99.8 Pulse 64 64 64 Resp 30 28 28 B/P (MAP) 114/65 (81) 119/70 (86) 125/68 (87) Pulse Ox 97 96 96 O2 Delivery Room Air Room Air Room Air Room Air 12/05/16 12/05/16 12/05/16 12/05/16 01:00 02:26 03:00 04:00 Pulse 66 65 64 Resp 27 24 29 B/P (MAP) 125/68 (87) 140/64 (89) 135/53 (80) Pulse Ox 96 97 96 O2 Delivery Room Air Room Air Room Air Room Air 12/05/16 12/05/16 12/05/16 12/05/16 04:05 05:05 06:00 07:00 Temp 99.3 99.3 Pulse 74 69 65 66 Resp 29 29 30 29 B/P (MAP) 129/62 (84) 138/63 (88) 125/62 (83) 99/63 (75) Pulse Ox 95 96 98 98 O2 Delivery Room Air Room Air Nasal Cannula Room Air 12/05/16 12/05/16 12/05/16 12/05/16 07:11 08:00 08:00 09:00 Temp 99.8 99.8 Pulse 69 67 Resp 37 29 B/P (MAP) 104/57 (73) 104/58 (73) Pulse Ox 97 96 98 O2 Delivery Room Air Room Air Room Air Room Air 12/05/16 10:00 Pulse 66 Resp 16 B/P (MAP) 93/55 (68) Pulse Ox 98 O2 Delivery Room Air Intake and Output 12/04/16 12/04/16 12/05/16 15:00 23:00 07:00 Intake Total 135 ml 762 ml 635 ml Output Total 575 ml 880 ml 1070 ml Balance -440 ml -118 ml -435 ml LUX FOREMAN MD Dec 05, 2016 10:18
--- NOTE | 2016-12-05 12:21 | PDOC ---
PROGRESS NOTES Subjective Subjective awake, a bit confused but able to converse Objective Objective Vital Signs Date Time Temp Pulse Resp B/P (MAP) Pulse Ox O2 Delivery O2 Flow Rate FiO2 12/05/16 12:00 Room Air 12/05/16 12:00 100.1 62 18 87/64 (72) 98 100.1 12/04/16 06:15 3.0 Intake and Output 12/05/16 07:00 Intake Total 1532 ml Output Total 2525 ml Balance -993 ml Intake Oral 0 ml IV Total 50 ml Tube Feeding 1422 ml Blood Product IV Normal Saline Flush 30 ml Other 30 ml Output Urine Total 2525 ml Physical Exam Physical Exam abdomen with drainage on dressing in mid portion, minimal at this time, may have drained focal collection, looks good currently Assessment Assessment Problems Medical Problems: (1) Upper GI bleeding Status: Acute Plan Plan of Care No new surgical recs, ok to transfer from our standpoint Comment Review of Relevant I have reviewed the following items cordell (where applicable) has been applied. Labs Laboratory Tests Test 12/04/16 05:41 Glucose (Fingerstick) 92 mg/dL (70-99) Microbiology 11/25/16 Blood Culture - Final, Complete NO GROWTH AFTER 5 DAYS 11/24/16 Gram Stain - Final, Complete 11/19/16 Urine Culture - Final, Complete 11/19/16 Urine Culture Result 1 ([facility]) - Final, Complete Medications Current Medications Sodium Chloride 1,000 ml @ 1,000 mls/hr 1X ONCE IV Last administered on 20:55; Start 11/19/16 at 20:45; Stop 11/19/16 at 21:44; Status DC Famotidine (Pepcid) 40 mg 1X ONCE IVP Last administered on 11/19/16 21:54; Start 11/19/16 at 21:30; Stop 11/19/16 at 21:31; Status DC Ondansetron HCl (Zofran) 4 mg PRN Q8HRS PRN IV NAUSEA/VOMITING Last administered on 11/19/16 21:54; Start 11/19/16 at 21:45; Stop 11/20/16 at 10:44 ; Status DC Morphine Sulfate 2 mg PRN Q2HR PRN IV PAIN; Start 11/19/16 at 21:45; Stop 11/20 at 21:44; Status DC Sodium Chloride 1,000 ml @ 110 mls/hr Q9H6M IV Last administered on 11/20/16 17:53; Start 11/19/16 at 21:41; Stop 11/20/16 at 21:40; Status DC Ondansetron HCl (Zofran) 4 mg PRN Q6HRS PRN IV NAUSEA/VOMITING; Start 11/20/16 at 10:42; Stop 11/21/16 at 10:41; Status DC Famotidine (Pepcid) 20 mg BID IVP Last administered on 12/05/16 09:11; Start at 11:00 Atorvastatin Calcium (Lipitor) 10 mg QHS PO Last administered on 12/04/16 22:28 ; Start 11/20/16 at 21:00 Dutasteride (Avodart) 0.5 mg DAILY PO ; Start 11/20/16 at 11:00 Labetalol HCl (Normodyne) 10 mg PRN Q2HR PRN IVP HYPERTENSION, SEE COMMENTS; Start 11/20/16 at 10:45 Acetaminophen (Tylenol) 500 mg PRN Q6HRS PRN PO MILD PAIN / TEMP Last administered on 12/04/16 10:03; Start 11/20/16 at 10:45 Ondansetron HCl (Zofran) 4 mg PRN Q6HRS PRN IV NAUSEA/VOMITING; Start 11/21/16 at 07:00; Stop 11/22/16 at 06:59; Status DC Fentanyl Citrate (Fentanyl 2ml Vial) 25 mcg PRN Q5MIN PRN IV MILD PAIN; Start 11/21/16 at 07:00; Stop 11/22/16 at 06:59; Status DC Fentanyl Citrate (Fentanyl 2ml Vial) 50 mcg PRN Q5MIN PRN IV MODERATE PAIN; Start 11/21/16 at 07:00; Stop 11/22/16 at 06:59; Status DC Morphine Sulfate 1 mg PRN Q10MIN PRN IV SEVERE PAIN; Start 11/21/16 at 07:00; Stop 11/22/16 at 06:59; Status DC Ringer's Solution 1,000 ml @ 30 mls/hr Q24H IV ; Start 11/21/16 at 07:00; Stop 11/21/16 at 18:59; Status DC Lidocaine HCl 2 ml PRN 1X PRN ID PRIOR TO IV START; Start 11/21/16 at 07:00; Stop 11/22/16 at 06:59; Status DC Hydromorphone HCl (Dilaudid) 0.5 mg PRN Q10MIN PRN IV SEV PAIN, Second choice; Start 11/21/16 at 07:00; Stop 11/22/16 at 06:59; Status DC Prochlorperazine Edisylate (Compazine) 5 mg PACU PRN PRN IV NAUSEA, MRX1; Start 11/21/16 at 07:00; Stop 11/22/16 at 06:59; Status DC Hydralazine HCl (Apresoline) 10 mg PRN Q4HRS PRN IVP ELEVATED BP, SEE COMMENTS ; Start 11/20/16 at 15:30 Propofol 20 ml @ As Directed STK-MED ONCE IV ; Start 11/21/16 at 07:20; Stop at 07:21; Status DC Lidocaine HCl (Lidocaine Pf 2% Vial) 5 ml STK-MED ONCE .ROUTE ; Start 11/21/16 at 07:20; Stop 11/21/16 at 07:21; Status DC Ondansetron HCl (Zofran) 4 mg STK-MED ONCE .ROUTE ; Start 11/21/16 at 07:20; Stop 11/21/16 at 07:21; Status DC Dexamethasone Sodium Phosphate (Decadron) 20 mg STK-MED ONCE .ROUTE ; Start at 07:20; Stop 11/21/16 at 07:21; Status DC Phenylephrine HCl 1 mg STK-MED ONCE IV ; Start 11/21/16 at 07:21; Stop 11/21/16 at 07:22; Status DC Ephedrine Sulfate 50 mg STK-MED ONCE IV ; Start 11/21/16 at 07:21; Stop at 07:22; Status DC Fentanyl Citrate (Fentanyl 5ml Vial) 250 mcg STK-MED ONCE .ROUTE ; Start at 07:21; Stop 11/21/16 at 07:22; Status DC Rocuronium Pacific (Zemuron) 50 mg STK-MED ONCE .ROUTE ; Start 11/21/16 at 07:22 ; Stop 11/21/16 at 07:23; Status DC Famotidine (Pepcid) 20 mg STK-MED ONCE .ROUTE ; Start 11/21/16 at 07:23; Stop at 07:24; Status DC Cellulose 1 each STK-MED ONCE .ROUTE Last administered on 11/21/16 10:29; Start 11/21/16 at 07:33; Stop 11/21/16 at 07:34; Status DC Bupivacaine HCl/ Epinephrine Bitart (Marcaine-Epi 0.5%-[id number]) 50 ml STK-MED ONCE .ROUTE Last administered on 11/21/16 08:43; Start 11/21/16 at 07:34; Stop 11/21/16 at 07:35; Status DC Cefazolin Sodium/ Dextrose 50 ml @ 100 mls/hr 1X PREOP ONCE IV Last administered on 11/21/16 08:25; Start 11/21/16 at 07:37; Stop 11/21/16 at 08:06 ; Status DC Succinylcholine Chloride (Anectine) 200 mg STK-MED ONCE .ROUTE ; Start 11/21/16 at 07:59; Stop 11/21/16 at 08:00; Status DC Sevoflurane (Ultane) 90 ml STK-MED ONCE IH ; Start 11/21/16 at 09:24; Stop 11/21 at 09:25; Status DC Rocuronium Pacific (Zemuron) 50 mg STK-MED ONCE .ROUTE ; Start 11/21/16 at 09:25 ; Stop 11/21/16 at 09:26; Status DC Cellulose 1 each STK-MED ONCE .ROUTE ; Start 11/21/16 at 10:11; Stop 11/21/16 at 10:12; Status DC Sodium Bicarbonate 50 meq STK-MED ONCE .ROUTE ; Start 11/21/16 at 10:34; Stop at 10:35; Status DC Rocuronium Pacific (Zemuron) 50 mg STK-MED ONCE .ROUTE ; Start 11/21/16 at 11:00 ; Stop 11/21/16 at 11:01; Status DC Sevoflurane (Ultane) 90 ml STK-MED ONCE IH ; Start 11/21/16 at 12:46; Stop 11/21 at 12:47; Status DC Piperacillin Sod/ Tazobactam Sod 3.375 gm/Sodium Chloride 50 ml @ 100 mls/hr Q6HRS IV Last administered on 11/26/16 11:40; Start 11/21/16 at 14:00; Stop at 14:43; Status DC Fentanyl Citrate (Fentanyl 2ml Vial) 25 mcg PRN Q2HR PRN IV PAIN Last administered on 11/24/16 02:49; Start 11/21/16 at 13:30; Stop 11/25/16 at 12:11 ; Status DC Fentanyl Citrate (Fentanyl 2ml Vial) 50 mcg PRN Q2HR PRN IV PAIN Last administered on 11/23/16 09:50; Start 11/21/16 at 13:30; Stop 11/25/16 at 12:11 ; Status DC Propofol 100 ml @ 0 mls/hr CONT PRN IV PER PROTOCOL Last administered on 21:08; Start 11/21/16 at 13:30; Stop 12/03/16 at 20:56; Status DC Fentanyl Citrate (Fentanyl 2ml Vial) 25 mcg PRN Q1HR PRN IV COMM Last administered on 11/27/16 06:03; Start 11/21/16 at 13:30 Fentanyl Citrate (Fentanyl 2ml Vial) 50 mcg PRN Q1HR PRN IV COMM Last administered on 11/26/16 23:08; Start 11/21/16 at 13:30 Chlorhexidine Gluconate (Peridex) 15 ml BID MM Last administered on 12/03/16 08:34; Start 11/21/16 at 21:00; Stop 12/03/16 at 20:56; Status DC Potassium Chloride/Dextrose/ Sod Cl 1,000 ml @ 100 mls/hr Q10H IV Last administered on 11/25/16 08:55; Start 11/21/16 at 15:00; Stop 11/25/16 at 21:59 ; Status DC Albuterol/ Ipratropium (Duoneb) 3 ml RTQID NEB Last administered on 12/05/16 07 :11; Start 11/23/16 at 16:00 Amino Acids/ Glycerin/ Electrolytes 1,000 ml @ 80 mls/hr [id number] IV ; Start at 16:15; Stop 11/23/16 at 18:21; Status DC Amino Acids/ Glycerin/ Electrolytes 1,000 ml @ 80 mls/hr [id number] IV Last administered on 11/24/16 08:00; Start 11/23/16 at 21:00; Stop 11/24/16 at 13:45 ; Status DC Amino Acids/ Glycerin/ Electrolytes 1,000 ml @ 80 mls/hr [id number] IV Last administered on 11/25/16 08:22; Start 11/25/16 at 08:00; Stop 11/25/16 at 21:59 ; Status DC Linezolid 300 ml @ 300 mls/hr Q12HR IV Last administered on 11/28/16 09:12; Start 11/25/16 at 10:00; Stop 11/28/16 at 12:42; Status DC Info 1 each PRN DAILY PRN MC SEE COMMENTS Last administered on 11/30/16 13:53 ; Start 11/25/16 at 11:15; Stop 12/01/16 at 09:11; Status DC Sodium Acetate 90 meq/Potassium Chloride 50 meq/ Potassium Phosphate 13.6 mmol/ Magnesium Sulfate 10 meq/ Calcium Gluconate 10 meq/ Multivitamins 10 ml/Chromium / Copper/Manganese/ Seleni/Zn 1 ml/ Total Parenteral Nutrition/Amino Acids/ Dextrose 1,512 ml @ 63 mls/hr TPN CONT IV Last administered on 11/25/16 22: 04; Start 11/25/16 at 22:00; Stop 11/26/16 at 21:59; Status DC Sodium Chloride 45 meq/Sodium Acetate 45 meq/ Potassium Chloride 50 meq/ Potassium Phosphate 17 mmol/ Magnesium Sulfate 16 meq/Calcium Gluconate 14 meq/ Multivitamins 10 ml/Chromium/ Copper/Manganese/ Seleni/Zn 1 ml/ Total Parenteral Nutrition/Amino Acids/Dextrose 1,512 ml @ 63 mls/hr TPN CONT IV Last administered on 11/26/16 21:01; Start 11/26/16 at 22:00; Stop 11/27/16 at 21:59; Status DC Potassium Phosphate 10 mmol/ Sodium Chloride 103.3333 ml @ 51.667 m... Q2H IV Last administered on 11/26/16 14:54; Start 11/26/16 at 13:30; Stop 11/26/16 at 17:29; Status DC Meropenem 500 mg/ Sodium Chloride 50 ml @ 100 mls/hr Q8HRS IV Last administered on 12/05/16 05:36; Start 11/26/16 at 15:00; Stop 12/05/16 at 07:53; Status DC Potassium Chloride/Dextrose/ Sod Cl 1,000 ml @ 37 mls/hr Q24H IV Last administered on 11/30/16 19:40; Start 11/26/16 at 20:00; Stop 12/01/16 at 09:11 ; Status DC Sodium Chloride 45 meq/Sodium Acetate 45 meq/ Potassium Chloride 50 meq/ Potassium Phosphate 17 mmol/ Magnesium Sulfate 12 meq/Calcium Gluconate 12 meq/ Multivitamins 10 ml/Chromium/ Copper/Manganese/ Seleni/Zn 1 ml/ Total Parenteral Nutrition/Amino Acids/Dextrose/ Fat Emulsion Intravenous 1,512 ml @ 63 mls/hr TPN CONT IV Last administered on 11/27/16 22:11; Start 11/27/16 at 22:00; Stop 11/28/16 at 21:59; Status DC Sodium Chloride 45 meq/Sodium Acetate 45 meq/ Potassium Chloride 50 meq/ Potassium Phosphate 17 mmol/ Magnesium Sulfate 12 meq/Calcium Gluconate 10 meq/ Multivitamins 10 ml/Chromium/ Copper/Manganese/ Seleni/Zn 1 ml/ Total Parenteral Nutrition/Amino Acids/Dextrose 1,512 ml @ 63 mls/hr TPN CONT IV Last administered on 11/28/16 21:35; Start 11/28/16 at 22:00; Stop 11/29/16 at 21:59; Status DC Sodium Chloride 45 meq/Sodium Acetate 45 meq/ Potassium Chloride 50 meq/ Potassium Phosphate 17 mmol/ Magnesium Sulfate 12 meq/ Multivitamins 10 ml/ Chromium/ Copper/Manganese/ Seleni/Zn 1 ml/ Total Parenteral Nutrition/Amino Acids/Dextrose 1,512 ml @ 63 mls/hr TPN CONT IV Last administered on 23:23; Start 11/29/16 at 22:00; Stop 11/30/16 at 21:59; Status DC Enoxaparin Sodium (Lovenox 40mg Syringe) 40 mg Q24H SQ Last administered on 12/05 09:11; Start 11/30/16 at 10:00 Sodium Chloride 45 meq/Sodium Acetate 45 meq/ Potassium Chloride 50 meq/ Potassium Phosphate 17 mmol/ Magnesium Sulfate 12 meq/ Multivitamins 10 ml/ Chromium/ Copper/Manganese/ Seleni/Zn 1 ml/ Total Parenteral Nutrition/Amino Acids/Dextrose 1,512 ml @ 63 mls/hr TPN CONT IV Last administered on t 21:31; Start 11/30/16 at 22:00; Stop 12/01/16 at 21:59; Status DC Active Scripts Active Reported Aspir 81 (Aspirin) 81 Mg Tablet.dr 81 Mg PO DAILY Atorvastatin Calcium 10 Mg Tablet 1 Tab PO DAILY Aspirin 81 Mg Tab.chew 1 Tab PO DAILY Avodart (Dutasteride) 0.5 Mg Capsule 1 Cap PO DAILY Vitals/I & O Vital Sign - Last 24 Hours 12/04/16 12/04/16 12/04/16 12/04/16 12:47 13:00 14:00 15:00 Pulse 62 63 64 Resp 30 29 21 B/P (MAP) 96/51 (66) 92/48 (63) 106/56 (73) Pulse Ox 98 98 98 98 O2 Delivery Room Air Room Air Room Air Room Air 12/04/16 12/04/16 12/04/16 12/04/16 15:51 16:00 17:00 18:00 Temp 99.3 99.3 Pulse 63 68 66 Resp 27 32 19 B/P (MAP) 104/53 (70) 101/57 (72) 113/55 (74) Pulse Ox 97 98 96 98 O2 Delivery Room Air Room Air Room Air Room Air 12/04/16 12/04/16 12/04/16 12/04/16 19:00 19:42 19:50 20:00 Temp 99.6 99.6 Pulse 64 Resp 28 B/P (MAP) 93/70 (78) Pulse Ox 97 98 O2 Delivery Room Air Room Air Room Air 12/04/16 12/04/16 12/04/16 12/04/16 20:00 21:00 22:00 23:03 Pulse 64 66 64 64 Resp 24 29 30 28 B/P (MAP) 117/64 (81) 128/63 (84) 114/65 (81) 119/70 (86) Pulse Ox 98 97 97 96 O2 Delivery Room Air Room Air Room Air Room Air 12/05/16 12/05/16 12/05/16 12/05/16 00:00 00:00 01:00 02:26 Temp 99.8 99.8 Pulse 64 66 65 Resp 28 27 24 B/P (MAP) 125/68 (87) 125/68 (87) 140/64 (89) Pulse Ox 96 96 97 O2 Delivery Room Air Room Air Room Air Room Air 12/05/16 12/05/16 12/05/16 12/05/16 03:00 04:00 04:05 05:05 Temp 99.3 99.3 Pulse 64 74 69 Resp 29 29 29 B/P (MAP) 135/53 (80) 129/62 (84) 138/63 (88) Pulse Ox 96 95 96 O2 Delivery Room Air Room Air Room Air Room Air 12/05/16 12/05/16 12/05/16 12/05/16 06:00 07:00 07:11 08:00 Pulse 65 66 Resp 30 29 B/P (MAP) 125/62 (83) 99/63 (75) Pulse Ox 98 98 97 O2 Delivery Nasal Cannula Room Air Room Air Room Air 12/05/16 12/05/16 12/05/16 12/05/16 08:00 09:00 10:00 11:00 Temp 99.8 99.8 Pulse 69 67 66 64 Resp 37 29 16 30 B/P (MAP) 104/57 (73) 104/58 (73) 93/55 (68) 106/58 (74) Pulse Ox 96 98 98 99 O2 Delivery Room Air Room Air Room Air Room Air 12/05/16 12/05/16 12:00 12:00 Temp 100.1 100.1 Pulse 62 Resp 18 B/P (MAP) 87/64 (72) Pulse Ox 98 O2 Delivery Room Air Room Air Intake and Output 12/04/16 12/04/16 12/05/16 15:00 23:00 07:00 Intake Total 135 ml 762 ml 635 ml Output Total 575 ml 880 ml 1070 ml Balance -440 ml -118 ml -435 ml SYDNEE MCCRACKEN MD Dec 05, 2016 12:21
[2016-12-05] MEDS: ATORVASTATIN CALCIUM 10 MG TABLET. PO SCH (21:15)
[2016-12-06] VITALS (23 sets, daily range): BP systolic 95–154; BP diastolic 45–77
[2016-12-06 05:52] LABS: ALBUMIN 2.1 g/dL (3.4-5.0); ALBUMIN/GLOBULIN RATIO 0.6 (1.0-1.7); CALCIUM 8.9 mg/dL (8.5-10.1); CREATININE 0.8 mg/dL (0.7-1.3); GFR 91.9; POTASSIUM 4.4 mmol/L (3.5-5.1); TOTAL BILIRUBIN 0.5 mg/dL (0.2-1.0); TOTAL PROTEIN 5.9 g/dL (6.4-8.2)
[2016-12-06] MEDS: ACETAMINOPHEN 500 MG TABLET PO PRN (08:08)
[2016-12-06] MEDS: ENOXAPARIN 40 MG/0.4 ML SYRINGE. SQ SCH (08:08)
[2016-12-06] MEDS: FAMOTIDINE 20 MG/2 ML VIAL IVP SCH ×2 (08:09→20:53)
[2016-12-06] MEDS: DUTASTERIDE 0.5 MG CAPSULE PO SCH (08:10)
--- NOTE | 2016-12-06 08:10 | PDOC ---
Infectious Disease Note Subjective Subjective arousable ROS ROS denies n/v/d/pain Vital Sign Vital Signs Vital Signs Date Time Temp Pulse Resp B/P (MAP) Pulse Ox O2 Delivery O2 Flow Rate FiO2 12/06/16 07:00 98.5 68 26 136/61 (86) 98 Room Air 98.5 Physical Exam PHYSICAL EXAM GENERAL: NAD, somnolent HEENT: PERRL, OC/OP NECK: Supple, no JVD, no LN LUNGS: Clear HEART: S1S2, no gallop, no murmur ABD: Soft, NT, no organomegaly, no rebound EXT: No edema, no cyanosis DATA OPERATIONS MANAGER: Arousable, demented SKIN: No rash IV: ok Labs Lab Laboratory Tests Test 12/06/16 05:25 12/06/16 06:45 Sodium Level 140 mmol/L (136-145) Potassium Level 4.4 mmol/L (3.5-5.1) Chloride Level 106 mmol/L (98-107) Carbon Dioxide Level 29 mmol/L (21-32) Anion Gap 5 (6-14) Blood Urea Nitrogen 22 mg/dL (8-26) Creatinine 0.8 mg/dL (0.7-1.3) Estimated GFR (Cockcroft-Gault) 91.9 BUN/Creatinine Ratio 28 (6-20) Glucose Level 105 mg/dL (70-99) Calcium Level 8.9 mg/dL (8.5-10.1) Total Bilirubin 0.5 mg/dL (0.2-1.0) Aspartate Amino Transf (AST/SGOT) 47 U/L (15-37) Alanine Aminotransferase (ALT/SGPT) 112 U/L (16-63) Alkaline Phosphatase 125 U/L (46-116) Total Protein 5.9 g/dL (6.4-8.2) Albumin 2.1 g/dL (3.4-5.0) Albumin/Globulin Ratio 0.6 (1.0-1.7) Glucose (Fingerstick) 116 mg/dL (70-99) Objective Assessment Fever, improved Leukocytosis, stable Aspiration pneumonia. s/p bronch 11/22. GS: GPC & yeast. Final cx yeast only. 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 Acute respiratory failure Anemia s/p PRBCs 11/27 Pacemaker Dementia Plan Plan of Care off antibiotics Monitor labs Supportive care DNR/DNI JANES BEJARANO MD Dec 06, 2016 08:10
[2016-12-06] MEDS: IPRATRPIUM/ALBUTEROL 0.5/2.5MG 3 ML NEBU. NEB SCH ×4 (08:14→19:54)
--- NOTE | 2016-12-06 08:54 | PDOC ---
PULMONARY PROGRESS NOTES Subjective PT EXTUBATED 12/02 AWAKE AND ALERT AT TIMES CONFUSED NO CONFUSION Vitals Vital Signs Date Time Temp Pulse Resp B/P (MAP) Pulse Ox O2 Delivery O2 Flow Rate FiO2 12/06/16 08:16 98 Room Air 12/06/16 08:00 99.4 69 35 116/61 (79) 99.4 HEENT: Other Lungs: Clear Cardiovascular: S1, S2 Abdomen: Soft, Non-tender, Other Neuro Exam: Alert Extremities: No Edema Skin: Warm Labs Laboratory Tests Test 12/06/16 05:25 12/06/16 06:45 Sodium Level 140 mmol/L (136-145) Potassium Level 4.4 mmol/L (3.5-5.1) Chloride Level 106 mmol/L (98-107) Carbon Dioxide Level 29 mmol/L (21-32) Anion Gap 5 (6-14) Blood Urea Nitrogen 22 mg/dL (8-26) Creatinine 0.8 mg/dL (0.7-1.3) Estimated GFR (Cockcroft-Gault) 91.9 BUN/Creatinine Ratio 28 (6-20) Glucose Level 105 mg/dL (70-99) Calcium Level 8.9 mg/dL (8.5-10.1) Total Bilirubin 0.5 mg/dL (0.2-1.0) Aspartate Amino Transf (AST/SGOT) 47 U/L (15-37) Alanine Aminotransferase (ALT/SGPT) 112 U/L (16-63) Alkaline Phosphatase 125 U/L (46-116) Total Protein 5.9 g/dL (6.4-8.2) Albumin 2.1 g/dL (3.4-5.0) Albumin/Globulin Ratio 0.6 (1.0-1.7) Glucose (Fingerstick) 116 mg/dL (70-99) Laboratory Tests Test 12/06/16 05:25 12/06/16 06:45 Sodium Level 140 mmol/L (136-145) Potassium Level 4.4 mmol/L (3.5-5.1) Chloride Level 106 mmol/L (98-107) Carbon Dioxide Level 29 mmol/L (21-32) Anion Gap 5 (6-14) Blood Urea Nitrogen 22 mg/dL (8-26) Creatinine 0.8 mg/dL (0.7-1.3) Estimated GFR (Cockcroft-Gault) 91.9 BUN/Creatinine Ratio 28 (6-20) Glucose Level 105 mg/dL (70-99) Calcium Level 8.9 mg/dL (8.5-10.1) Total Bilirubin 0.5 mg/dL (0.2-1.0) Aspartate Amino Transf (AST/SGOT) 47 U/L (15-37) Alanine Aminotransferase (ALT/SGPT) 112 U/L (16-63) Alkaline Phosphatase 125 U/L (46-116) Total Protein 5.9 g/dL (6.4-8.2) Albumin 2.1 g/dL (3.4-5.0) Albumin/Globulin Ratio 0.6 (1.0-1.7) Glucose (Fingerstick) 116 mg/dL (70-99) Medications Active Scripts Medications Dose Route/Sig Max Daily Dose Days Date Category Aspir 81 (Aspirin) 81 Mg Tablet.dr 81 Mg PO DAILY 06/08/14 Reported Atorvastatin Calcium 10 Mg Tablet 1 Tab PO DAILY 03/10/14 Reported Aspirin 81 Mg Tab.chew 1 Tab PO DAILY 01/29/14 Reported Avodart (Dutasteride) 0.5 Mg Capsule 1 Cap PO DAILY 01/29/14 Reported Impression . ACUTE RESP FAILURE MULTIFACTORIAL ASPIRATION PNEUMONIA S/P SEE OP NOTE Laparoscopic repair of large paraesophageal hernia, MELENA ARF ABNL CXR POSSIBLE EDEMA AND PNEUMONIA MALNUTRITION DEMENTIA METABOLIC/ TOXIC ENCE Plan . TRANSFER TO [facility] SOON SPEECH FOLLOW UP UP TO CHAIR PT/OT EXTUBATED 12/02 BROCH 11/04, BAL NEGATIVE ANTIBX BRONCHODILATORS SABRINA VALLEJO MD Dec 06, 2016 08:54
--- NOTE | 2016-12-06 11:09 | PDOC ---
G I PROGRESS NOTE Subjective Up in chair. Drowsy initially; brightens when stimulated. notes occasional "myoclonus" (startles?). Objective Apparently tolerating tube feeding. Physical Exam Lungs clear. RRR Abdomen soft, not tender nor distended. G-tube. Review of Relevant I have reviewed the following items cordell (where applicable) has been applied. Labs Laboratory Tests Test 12/06/16 05:25 12/06/16 06:45 Sodium Level 140 mmol/L (136-145) Potassium Level 4.4 mmol/L (3.5-5.1) Chloride Level 106 mmol/L (98-107) Carbon Dioxide Level 29 mmol/L (21-32) Anion Gap 5 (6-14) Blood Urea Nitrogen 22 mg/dL (8-26) Creatinine 0.8 mg/dL (0.7-1.3) Estimated GFR (Cockcroft-Gault) 91.9 BUN/Creatinine Ratio 28 (6-20) Glucose Level 105 mg/dL (70-99) Calcium Level 8.9 mg/dL (8.5-10.1) Total Bilirubin 0.5 mg/dL (0.2-1.0) Aspartate Amino Transf (AST/SGOT) 47 U/L (15-37) Alanine Aminotransferase (ALT/SGPT) 112 U/L (16-63) Alkaline Phosphatase 125 U/L (46-116) Total Protein 5.9 g/dL (6.4-8.2) Albumin 2.1 g/dL (3.4-5.0) Albumin/Globulin Ratio 0.6 (1.0-1.7) Glucose (Fingerstick) 116 mg/dL (70-99) Laboratory Tests Test 12/06/16 05:25 12/06/16 06:45 Sodium Level 140 mmol/L (136-145) Potassium Level 4.4 mmol/L (3.5-5.1) Chloride Level 106 mmol/L (98-107) Carbon Dioxide Level 29 mmol/L (21-32) Anion Gap 5 (6-14) Blood Urea Nitrogen 22 mg/dL (8-26) Creatinine 0.8 mg/dL (0.7-1.3) Estimated GFR (Cockcroft-Gault) 91.9 BUN/Creatinine Ratio 28 (6-20) Glucose Level 105 mg/dL (70-99) Calcium Level 8.9 mg/dL (8.5-10.1) Total Bilirubin 0.5 mg/dL (0.2-1.0) Aspartate Amino Transf (AST/SGOT) 47 U/L (15-37) Alanine Aminotransferase (ALT/SGPT) 112 U/L (16-63) Alkaline Phosphatase 125 U/L (46-116) Total Protein 5.9 g/dL (6.4-8.2) Albumin 2.1 g/dL (3.4-5.0) Albumin/Globulin Ratio 0.6 (1.0-1.7) Glucose (Fingerstick) 116 mg/dL (70-99) Microbiology 11/25/16 Blood Culture - Final, Complete NO GROWTH AFTER 5 DAYS 11/24/16 Gram Stain - Final, Complete 11/19/16 Urine Culture - Final, Complete 11/19/16 Urine Culture Result 1 ([facility]) - Final, Complete Mild, non-specifically elevated LFT's persist. Medications Current Medications Sodium Chloride 1,000 ml @ 1,000 mls/hr 1X ONCE IV Last administered on 20:55; Start 11/19/16 at 20:45; Stop 11/19/16 at 21:44; Status DC Famotidine (Pepcid) 40 mg 1X ONCE IVP Last administered on 11/19/16 21:54; Start 11/19/16 at 21:30; Stop 11/19/16 at 21:31; Status DC Ondansetron HCl (Zofran) 4 mg PRN Q8HRS PRN IV NAUSEA/VOMITING Last administered on 11/19/16 21:54; Start 11/19/16 at 21:45; Stop 11/20/16 at 10:44 ; Status DC Morphine Sulfate 2 mg PRN Q2HR PRN IV PAIN; Start 11/19/16 at 21:45; Stop 11/20 at 21:44; Status DC Sodium Chloride 1,000 ml @ 110 mls/hr Q9H6M IV Last administered on 11/20/16 17:53; Start 11/19/16 at 21:41; Stop 11/20/16 at 21:40; Status DC Ondansetron HCl (Zofran) 4 mg PRN Q6HRS PRN IV NAUSEA/VOMITING; Start 11/20/16 at 10:42; Stop 11/21/16 at 10:41; Status DC Famotidine (Pepcid) 20 mg BID IVP Last administered on 12/06/16 08:09; Start at 11:00 Atorvastatin Calcium (Lipitor) 10 mg QHS PO Last administered on 12/05/16 21:15 ; Start 11/20/16 at 21:00 Dutasteride (Avodart) 0.5 mg DAILY PO ; Start 11/20/16 at 11:00 Labetalol HCl (Normodyne) 10 mg PRN Q2HR PRN IVP HYPERTENSION, SEE COMMENTS; Start 11/20/16 at 10:45 Acetaminophen (Tylenol) 500 mg PRN Q6HRS PRN PO MILD PAIN / TEMP Last administered on 12/06/16 08:08; Start 11/20/16 at 10:45 Ondansetron HCl (Zofran) 4 mg PRN Q6HRS PRN IV NAUSEA/VOMITING; Start 11/21/16 at 07:00; Stop 11/22/16 at 06:59; Status DC Fentanyl Citrate (Fentanyl 2ml Vial) 25 mcg PRN Q5MIN PRN IV MILD PAIN; Start 11/21/16 at 07:00; Stop 11/22/16 at 06:59; Status DC Fentanyl Citrate (Fentanyl 2ml Vial) 50 mcg PRN Q5MIN PRN IV MODERATE PAIN; Start 11/21/16 at 07:00; Stop 11/22/16 at 06:59; Status DC Morphine Sulfate 1 mg PRN Q10MIN PRN IV SEVERE PAIN; Start 11/21/16 at 07:00; Stop 11/22/16 at 06:59; Status DC Ringer's Solution 1,000 ml @ 30 mls/hr Q24H IV ; Start 11/21/16 at 07:00; Stop 11/21/16 at 18:59; Status DC Lidocaine HCl 2 ml PRN 1X PRN ID PRIOR TO IV START; Start 11/21/16 at 07:00; Stop 11/22/16 at 06:59; Status DC Hydromorphone HCl (Dilaudid) 0.5 mg PRN Q10MIN PRN IV SEV PAIN, Second choice; Start 11/21/16 at 07:00; Stop 11/22/16 at 06:59; Status DC Prochlorperazine Edisylate (Compazine) 5 mg PACU PRN PRN IV NAUSEA, MRX1; Start 11/21/16 at 07:00; Stop 11/22/16 at 06:59; Status DC Hydralazine HCl (Apresoline) 10 mg PRN Q4HRS PRN IVP ELEVATED BP, SEE COMMENTS ; Start 11/20/16 at 15:30 Propofol 20 ml @ As Directed STK-MED ONCE IV ; Start 11/21/16 at 07:20; Stop at 07:21; Status DC Lidocaine HCl (Lidocaine Pf 2% Vial) 5 ml STK-MED ONCE .ROUTE ; Start 11/21/16 at 07:20; Stop 11/21/16 at 07:21; Status DC Ondansetron HCl (Zofran) 4 mg STK-MED ONCE .ROUTE ; Start 11/21/16 at 07:20; Stop 11/21/16 at 07:21; Status DC Dexamethasone Sodium Phosphate (Decadron) 20 mg STK-MED ONCE .ROUTE ; Start at 07:20; Stop 11/21/16 at 07:21; Status DC Phenylephrine HCl 1 mg STK-MED ONCE IV ; Start 11/21/16 at 07:21; Stop 11/21/16 at 07:22; Status DC Ephedrine Sulfate 50 mg STK-MED ONCE IV ; Start 11/21/16 at 07:21; Stop at 07:22; Status DC Fentanyl Citrate (Fentanyl 5ml Vial) 250 mcg STK-MED ONCE .ROUTE ; Start at 07:21; Stop 11/21/16 at 07:22; Status DC Rocuronium [place] (Zemuron) 50 mg STK-MED ONCE .ROUTE ; Start 11/21/16 at 07:22 ; Stop 11/21/16 at 07:23; Status DC Famotidine (Pepcid) 20 mg STK-MED ONCE .ROUTE ; Start 11/21/16 at 07:23; Stop at 07:24; Status DC Cellulose 1 each STK-MED ONCE .ROUTE Last administered on 11/21/16t 10:29; Start 11/21/16 at 07:33; Stop 11/21/16 at 07:34; Status DC Bupivacaine HCl/ Epinephrine Bitart (Marcaine-Epi 0.5%-[id number]) 50 ml STK-MED ONCE .ROUTE Last administered on 11/21/16 08:43; Start 11/21/16 at 07:34; Stop 11/21/16 at 07:35; Status DC Cefazolin Sodium/ Dextrose 50 ml @ 100 mls/hr 1X PREOP ONCE IV Last administered on 11/21/16 08:25; Start 11/21/16 at 07:37; Stop 11/21/16 at 08:06 ; Status DC Succinylcholine Chloride (Anectine) 200 mg STK-MED ONCE .ROUTE ; Start 11/21/16 at 07:59; Stop 11/21/16 at 08:00; Status DC Sevoflurane (Ultane) 90 ml STK-MED ONCE IH ; Start 11/21/16 at 09:24; Stop 11/21 at 09:25; Status DC Rocuronium [place] (Zemuron) 50 mg STK-MED ONCE .ROUTE ; Start 11/21/16 at 09:25 ; Stop 11/21/16 at 09:26; Status DC Cellulose 1 each STK-MED ONCE .ROUTE ; Start 11/21/16 at 10:11; Stop 11/21/16 at 10:12; Status DC Sodium Bicarbonate 50 meq STK-MED ONCE .ROUTE ; Start 11/21/16 at 10:34; Stop at 10:35; Status DC Rocuronium [place] (Zemuron) 50 mg STK-MED ONCE .ROUTE ; Start 11/21/16 at 11:00 ; Stop 11/21/16 at 11:01; Status DC Sevoflurane (Ultane) 90 ml STK-MED ONCE IH ; Start 11/21/16 at 12:46; Stop 11/21 at 12:47; Status DC Piperacillin Sod/ Tazobactam Sod 3.375 gm/Sodium Chloride 50 ml @ 100 mls/hr Q6HRS IV Last administered on 11/26/16 11:40; Start 11/21/16 at 14:00; Stop at 14:43; Status DC Fentanyl Citrate (Fentanyl 2ml Vial) 25 mcg PRN Q2HR PRN IV PAIN Last administered on 11/24/16 02:49; Start 11/21/16 at 13:30; Stop 11/25/16 at 12:11 ; Status DC Fentanyl Citrate (Fentanyl 2ml Vial) 50 mcg PRN Q2HR PRN IV PAIN Last administered on 11/23/16 09:50; Start 11/21/16 at 13:30; Stop 11/25/16 at 12:11 ; Status DC Propofol 100 ml @ 0 mls/hr CONT PRN IV PER PROTOCOL Last administered on 21:08; Start 11/21/16 at 13:30; Stop 12/03/16 at 20:56; Status DC Fentanyl Citrate (Fentanyl 2ml Vial) 25 mcg PRN Q1HR PRN IV COMM Last administered on 11/27/16 06:03; Start 11/21/16 at 13:30 Fentanyl Citrate (Fentanyl 2ml Vial) 50 mcg PRN Q1HR PRN IV COMM Last administered on 11/26/16 23:08; Start 11/21/16 at 13:30 Chlorhexidine Gluconate (Peridex) 15 ml BID MM Last administered on 12/03/16 08:34; Start 11/21/16 at 21:00; Stop 12/03/16 at 20:56; Status DC Potassium Chloride/Dextrose/ Sod Cl 1,000 ml @ 100 mls/hr Q10H IV Last administered on 11/25/16 08:55; Start 11/21/16 at 15:00; Stop 11/25/16 at 21:59 ; Status DC Albuterol/ Ipratropium (Duoneb) 3 ml RTQID NEB Last administered on 12/06/16 08 :14; Start 11/23/16 at 16:00 Amino Acids/ Glycerin/ Electrolytes 1,000 ml @ 80 mls/hr [id number] IV ; Start at 16:15; Stop 11/23/16 at 18:21; Status DC Amino Acids/ Glycerin/ Electrolytes 1,000 ml @ 80 mls/hr [id number] IV Last administered on 11/24/16 08:00; Start 11/23/16 at 21:00; Stop 11/24/16 at 13:45 ; Status DC Amino Acids/ Glycerin/ Electrolytes 1,000 ml @ 80 mls/hr [id number] IV Last administered on 11/25/16 08:22; Start 11/25/16 at 08:00; Stop 11/25/16 at 21:59 ; Status DC Linezolid 300 ml @ 300 mls/hr Q12HR IV Last administered on 11/28/16 09:12; Start 11/25/16 at 10:00; Stop 11/28/16 at 12:42; Status DC Info 1 each PRN DAILY PRN MC SEE COMMENTS Last administered on 11/30/16 13:53 ; Start 11/25/16 at 11:15; Stop 12/01/16 at 09:11; Status DC Sodium Acetate 90 meq/Potassium Chloride 50 meq/ Potassium Phosphate 13.6 mmol/ Magnesium Sulfate 10 meq/ Calcium Gluconate 10 meq/ Multivitamins 10 ml/Chromium / Copper/Manganese/ Seleni/Zn 1 ml/ Total Parenteral Nutrition/Amino Acids/ Dextrose 1,512 ml @ 63 mls/hr TPN CONT IV Last administered on 11/25/16 22: 04; Start 11/25/16 at 22:00; Stop 11/26/16 at 21:59; Status DC Sodium Chloride 45 meq/Sodium Acetate 45 meq/ Potassium Chloride 50 meq/ Potassium Phosphate 17 mmol/ Magnesium Sulfate 16 meq/Calcium Gluconate 14 meq/ Multivitamins 10 ml/Chromium/ Copper/Manganese/ Seleni/Zn 1 ml/ Total Parenteral Nutrition/Amino Acids/Dextrose 1,512 ml @ 63 mls/hr TPN CONT IV Last administered on 11/26/16 21:01; Start 11/26/16 at 22:00; Stop 11/27/16 at 21:59; Status DC Potassium Phosphate 10 mmol/ Sodium Chloride 103.3333 ml @ 51.667 m... Q2H IV Last administered on 11/26/16 14:54; Start 11/26/16 at 13:30; Stop 11/26/16 at 17:29; Status DC Meropenem 500 mg/ Sodium Chloride 50 ml @ 100 mls/hr Q8HRS IV Last administered on 12/05/16 05:36; Start 11/26/16 at 15:00; Stop 12/05/16 at 07:53; Status DC Potassium Chloride/Dextrose/ Sod Cl 1,000 ml @ 37 mls/hr Q24H IV Last administered on 11/30/16 19:40; Start 11/26/16 at 20:00; Stop 12/01/16 at 09:11 ; Status DC Sodium Chloride 45 meq/Sodium Acetate 45 meq/ Potassium Chloride 50 meq/ Potassium Phosphate 17 mmol/ Magnesium Sulfate 12 meq/Calcium Gluconate 12 meq/ Multivitamins 10 ml/Chromium/ Copper/Manganese/ Seleni/Zn 1 ml/ Total Parenteral Nutrition/Amino Acids/Dextrose/ Fat Emulsion Intravenous 1,512 ml @ 63 mls/hr TPN CONT IV Last administered on 11/27/16 22:11; Start 11/27/16 at 22:00; Stop 11/28/16 at 21:59; Status DC Sodium Chloride 45 meq/Sodium Acetate 45 meq/ Potassium Chloride 50 meq/ Potassium Phosphate 17 mmol/ Magnesium Sulfate 12 meq/Calcium Gluconate 10 meq/ Multivitamins 10 ml/Chromium/ Copper/Manganese/ Seleni/Zn 1 ml/ Total Parenteral Nutrition/Amino Acids/Dextrose 1,512 ml @ 63 mls/hr TPN CONT IV Last administered on 11/28/16 21:35; Start 11/28/16 at 22:00; Stop 11/29/16 at 21:59; Status DC Sodium Chloride 45 meq/Sodium Acetate 45 meq/ Potassium Chloride 50 meq/ Potassium Phosphate 17 mmol/ Magnesium Sulfate 12 meq/ Multivitamins 10 ml/ Chromium/ Copper/Manganese/ Seleni/Zn 1 ml/ Total Parenteral Nutrition/Amino Acids/Dextrose 1,512 ml @ 63 mls/hr TPN CONT IV Last administered on 23:23; Start 11/29/16 at 22:00; Stop 11/30/16 at 21:59; Status DC Enoxaparin Sodium (Lovenox 40mg Syringe) 40 mg Q24H SQ Last administered on 12/06 08:08; Start 11/30/16 at 10:00 Sodium Chloride 45 meq/Sodium Acetate 45 meq/ Potassium Chloride 50 meq/ Potassium Phosphate 17 mmol/ Magnesium Sulfate 12 meq/ Multivitamins 10 ml/ Chromium/ Copper/Manganese/ Seleni/Zn 1 ml/ Total Parenteral Nutrition/Amino Acids/Dextrose 1,512 ml @ 63 mls/hr TPN CONT IV Last administered on 21:31; Start 11/30/16 at 22:00; Stop 12/01/16 at 21:59; Status DC Active Scripts Active Reported Aspir 81 (Aspirin) 81 Mg Tablet.dr 81 Mg PO DAILY Atorvastatin Calcium 10 Mg Tablet 1 Tab PO DAILY Aspirin 81 Mg Tab.chew 1 Tab PO DAILY Avodart (Dutasteride) 0.5 Mg Capsule 1 Cap PO DAILY Vitals/I & O Vital Sign - Last 24 Hours 12/05/16 12/05/16 12/05/16 12/05/16 12:00 12:00 12:32 13:00 Temp 100.1 100.1 Pulse 62 64 Resp 18 32 B/P (MAP) 87/64 (72) 94/58 (70) Pulse Ox 98 100 O2 Delivery Room Air Room Air Room Air Room Air 12/05/16 12/05/16 12/05/16 12/05/16 14:00 15:00 16:00 16:00 Temp 99.3 99.3 Pulse 63 64 67 Resp 29 30 27 B/P (MAP) 102/56 (71) 116/65 (82) 133/71 (91) Pulse Ox 99 99 100 O2 Delivery Room Air Room Air Room Air Room Air 12/05/16 12/05/16 12/05/16 12/05/16 16:41 17:00 18:00 19:00 Temp 98.8 98.8 Pulse 69 68 69 Resp 17 27 20 B/P (MAP) 120/69 (86) 119/61 (80) 107/64 (78) Pulse Ox 98 97 98 O2 Delivery Room Air Room Air Room Air Room Air 12/05/16 12/05/16 12/05/16 12/05/16 19:51 20:00 20:00 21:00 Temp 99.5 99.5 Pulse 72 77 Resp 22 23 B/P (MAP) 134/69 (90) 106/67 (80) Pulse Ox 98 96 96 O2 Delivery Room Air Room Air Room Air Room Air 12/05/16 12/05/16 12/06/16 12/06/16 22:00 23:00 00:00 00:00 Temp 98.8 98.6 98.8 98.6 Pulse 74 71 68 Resp 21 19 14 B/P (MAP) 129/62 (84) 98/52 (67) 110/63 (79) Pulse Ox 96 96 96 O2 Delivery Room Air Room Air Room Air Room Air 8/3/12/06/16 12/06/16 12/06/16 01:00 02:00 03:00 04:00 Temp 97.4 97.4 Pulse 67 68 68 Resp 19 26 24 B/P (MAP) 106/59 (75) 117/64 (81) 100/57 (71) Pulse Ox 97 95 96 O2 Delivery Room Air Room Air Room Air Room Air 12/06/16 12/06/16 12/06/16 12/06/16 04:00 05:01 06:00 07:00 Temp 98.2 98.2 98.5 98.2 98.2 98.5 Pulse 68 72 77 68 Resp 21 19 29 26 B/P (MAP) 124/66 (85) 122/65 (84) 138/68 (91) 136/61 (86) Pulse Ox 97 100 100 98 O2 Delivery Room Air Room Air Room Air Room Air 12/06/16 12/06/16 12/06/16 12/06/16 08:00 08:00 08:16 09:00 Temp 99.4 99.4 99.4 99.4 Pulse 69 70 Resp 35 24 B/P (MAP) 116/61 (79) 118/71 (87) Pulse Ox 96 98 98 O2 Delivery Room Air Room Air Room Air Room Air 12/06/16 10:00 Temp 98.2 98.2 Pulse 66 Resp 20 B/P (MAP) 95/57 (70) Pulse Ox 96 O2 Delivery Room Air Intake and Output 12/05/16 12/05/16 12/06/16 15:00 23:00 07:00 Intake Total 65 ml 569 ml 555 ml Output Total 335 ml 1025 ml 875 ml Balance -270 ml -456 ml -320 ml Problem List Problems Medical Problems: (1) Upper GI bleeding Status: Acute Assessment Improving post-paraesophageal hernia repair, slowly. Plan of Care: Continue current Tx, Mgmt Plan of Care Note Transfer to [facility] with us at your discretion. WILBERTO ROBERTS MD Dec 06, 2016 11:09
--- NOTE | 2016-12-06 13:30 | PDOC ---
PROGRESS NOTES Chief Complaint Chief Complaint hematemesis, GI bleed, upper, req. surgery on admit 1. 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 2. Acute respiratory failure: On mechanical ventilation, aspiration pneumonia. sputum cx + GNR. on zyvox and meropenum with ID 3. Leukocytosis 4. Hx Arrhythmia NOS: hx pacer placement 5. Prophylaxis: SCDs; 6. 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 7. hypophosphatemia: 8. DNR now, off vent, on RA, breathing well, but tachypneic 9. OMARI, 10. moderate malnutrition, not POA History of Present Illness History of Present Illness off vent, doing well, but very confused, and still tachypneic, open mouth posture at rest and daughter in room, he is responding to them follows commands well, seems calm, not oriented, calm and follows most commands cont IV fluid speech and PT and OT to be more aggressive today Supportive care still DNR, plan transfer to LTAC, soon Vitals Vitals Vital Signs Date Time Temp Pulse Resp B/P (MAP) Pulse Ox O2 Delivery O2 Flow Rate FiO2 12/06/16 13:00 98.7 67 24 109/60 (76) 100 Room Air 98.7 Physical Exam Physical Exam lethargic, off vent, breathing well, , RA General: Alert, Cooperative, No acute distress, Other (restless) Heart: Regular rate, Normal S1, Normal S2 Lungs: Clear Abdomen: Soft, Other ( gtube in place, incision with some serosang drainage and mild erythema to lower incision, no induration ) Extremities: No clubbing, No cyanosis Skin: No rashes, No breakdown Labs LABS Laboratory Tests Test 12/06/16 05:25 12/06/16 06:45 Sodium Level 140 mmol/L (136-145) Potassium Level 4.4 mmol/L (3.5-5.1) Chloride Level 106 mmol/L (98-107) Carbon Dioxide Level 29 mmol/L (21-32) Anion Gap 5 (6-14) Blood Urea Nitrogen 22 mg/dL (8-26) Creatinine 0.8 mg/dL (0.7-1.3) Estimated GFR (Cockcroft-Gault) 91.9 BUN/Creatinine Ratio 28 (6-20) Glucose Level 105 mg/dL (70-99) Calcium Level 8.9 mg/dL (8.5-10.1) Total Bilirubin 0.5 mg/dL (0.2-1.0) Aspartate Amino Transf (AST/SGOT) 47 U/L (15-37) Alanine Aminotransferase (ALT/SGPT) 112 U/L (16-63) Alkaline Phosphatase 125 U/L (46-116) Total Protein 5.9 g/dL (6.4-8.2) Albumin 2.1 g/dL (3.4-5.0) Albumin/Globulin Ratio 0.6 (1.0-1.7) Glucose (Fingerstick) 116 mg/dL (70-99) Review of Systems Review of Systems lethargic, no N..v.d Assessment and Plan Assessmemt and Plan Plan to LTAC soon Problems Medical Problems: (1) Upper GI bleeding Status: Acute Problems: Comment Review of Relevant I have reviewed the following items cordell (where applicable) has been applied. Labs Laboratory Tests Test 12/06/16 05:25 12/06/16 06:45 Sodium Level 140 mmol/L (136-145) Potassium Level 4.4 mmol/L (3.5-5.1) Chloride Level 106 mmol/L (98-107) Carbon Dioxide Level 29 mmol/L (21-32) Anion Gap 5 (6-14) Blood Urea Nitrogen 22 mg/dL (8-26) Creatinine 0.8 mg/dL (0.7-1.3) Estimated GFR (Cockcroft-Gault) 91.9 BUN/Creatinine Ratio 28 (6-20) Glucose Level 105 mg/dL (70-99) Calcium Level 8.9 mg/dL (8.5-10.1) Total Bilirubin 0.5 mg/dL (0.2-1.0) Aspartate Amino Transf (AST/SGOT) 47 U/L (15-37) Alanine Aminotransferase (ALT/SGPT) 112 U/L (16-63) Alkaline Phosphatase 125 U/L (46-116) Total Protein 5.9 g/dL (6.4-8.2) Albumin 2.1 g/dL (3.4-5.0) Albumin/Globulin Ratio 0.6 (1.0-1.7) Glucose (Fingerstick) 116 mg/dL (70-99) Laboratory Tests Test 12/06/16 05:25 12/06/16 06:45 Sodium Level 140 mmol/L (136-145) Potassium Level 4.4 mmol/L (3.5-5.1) Chloride Level 106 mmol/L (98-107) Carbon Dioxide Level 29 mmol/L (21-32) Anion Gap 5 (6-14) Blood Urea Nitrogen 22 mg/dL (8-26) Creatinine 0.8 mg/dL (0.7-1.3) Estimated GFR (Cockcroft-Gault) 91.9 BUN/Creatinine Ratio 28 (6-20) Glucose Level 105 mg/dL (70-99) Calcium Level 8.9 mg/dL (8.5-10.1) Total Bilirubin 0.5 mg/dL (0.2-1.0) Aspartate Amino Transf (AST/SGOT) 47 U/L (15-37) Alanine Aminotransferase (ALT/SGPT) 112 U/L (16-63) Alkaline Phosphatase 125 U/L (46-116) Total Protein 5.9 g/dL (6.4-8.2) Albumin 2.1 g/dL (3.4-5.0) Albumin/Globulin Ratio 0.6 (1.0-1.7) Glucose (Fingerstick) 116 mg/dL (70-99) Microbiology 11/25/16 Blood Culture - Final, Complete NO GROWTH AFTER 5 DAYS 11/24/16 Gram Stain - Final, Complete 11/19/16 Urine Culture - Final, Complete 11/19/16 Urine Culture Result 1 (CHAVA) - Final, Complete Medications Current Medications Sodium Chloride 1,000 ml @ 1,000 mls/hr 1X ONCE IV Last administered on 20:55; Start 11/19/16 at 20:45; Stop 11/19/16 at 21:44; Status DC Famotidine (Pepcid) 40 mg 1X ONCE IVP Last administered on 11/19/16 21:54; Start 11/19/16 at 21:30; Stop 11/19/16 at 21:31; Status DC Ondansetron HCl (Zofran) 4 mg PRN Q8HRS PRN IV NAUSEA/VOMITING Last administered on 11/19/16 21:54; Start 11/19/16 at 21:45; Stop 11/20/16 at 10:44 ; Status DC Morphine Sulfate 2 mg PRN Q2HR PRN IV PAIN; Start 11/19/16 at 21:45; Stop 11/20 at 21:44; Status DC Sodium Chloride 1,000 ml @ 110 mls/hr Q9H6M IV Last administered on 11/20/16 17:53; Start 11/19/16 at 21:41; Stop 11/20/16 at 21:40; Status DC Ondansetron HCl (Zofran) 4 mg PRN Q6HRS PRN IV NAUSEA/VOMITING; Start 11/20/16 at 10:42; Stop 11/21/16 at 10:41; Status DC Famotidine (Pepcid) 20 mg BID IVP Last administered on 12/06/16 08:09; Start at 11:00 Atorvastatin Calcium (Lipitor) 10 mg QHS PO Last administered on 12/05/16 21:15 ; Start 11/20/16 at 21:00 Dutasteride (Avodart) 0.5 mg DAILY PO ; Start 11/20/16 at 11:00 Labetalol HCl (Normodyne) 10 mg PRN Q2HR PRN IVP HYPERTENSION, SEE COMMENTS; Start 11/20/16 at 10:45 Acetaminophen (Tylenol) 500 mg PRN Q6HRS PRN PO MILD PAIN / TEMP Last administered on 12/06/16 08:08; Start 11/20/16 at 10:45 Ondansetron HCl (Zofran) 4 mg PRN Q6HRS PRN IV NAUSEA/VOMITING; Start 11/21/16 at 07:00; Stop 11/22/16 at 06:59; Status DC Fentanyl Citrate (Fentanyl 2ml Vial) 25 mcg PRN Q5MIN PRN IV MILD PAIN; Start 11/21/16 at 07:00; Stop 11/22/16 at 06:59; Status DC Fentanyl Citrate (Fentanyl 2ml Vial) 50 mcg PRN Q5MIN PRN IV MODERATE PAIN; Start 11/21/16 at 07:00; Stop 11/22/16 at 06:59; Status DC Morphine Sulfate 1 mg PRN Q10MIN PRN IV SEVERE PAIN; Start 11/21/16 at 07:00; Stop 11/22/16 at 06:59; Status DC Ringer's Solution 1,000 ml @ 30 mls/hr Q24H IV ; Start 11/21/16 at 07:00; Stop 11/21/16 at 18:59; Status DC Lidocaine HCl 2 ml PRN 1X PRN ID PRIOR TO IV START; Start 11/21/16 at 07:00; Stop 11/22/16 at 06:59; Status DC Hydromorphone HCl (Dilaudid) 0.5 mg PRN Q10MIN PRN IV SEV PAIN, Second choice; Start 11/21/16 at 07:00; Stop 11/22/16 at 06:59; Status DC Prochlorperazine Edisylate (Compazine) 5 mg PACU PRN PRN IV NAUSEA, MRX1; Start 11/21/16 at 07:00; Stop 11/22/16 at 06:59; Status DC Hydralazine HCl (Apresoline) 10 mg PRN Q4HRS PRN IVP ELEVATED BP, SEE COMMENTS ; Start 11/20/16 at 15:30 Propofol 20 ml @ As Directed STK-MED ONCE IV ; Start 11/21/16 at 07:20; Stop at 07:21; Status DC Lidocaine HCl (Lidocaine Pf 2% Vial) 5 ml STK-MED ONCE .ROUTE ; Start 11/21/16 at 07:20; Stop 11/21/16 at 07:21; Status DC Ondansetron HCl (Zofran) 4 mg STK-MED ONCE .ROUTE ; Start 11/21/16 at 07:20; Stop 11/21/16 at 07:21; Status DC Dexamethasone Sodium Phosphate (Decadron) 20 mg STK-MED ONCE .ROUTE ; Start at 07:20; Stop 11/21/16 at 07:21; Status DC Phenylephrine HCl 1 mg STK-MED ONCE IV ; Start 11/21/16 at 07:21; Stop 11/21/16 at 07:22; Status DC Ephedrine Sulfate 50 mg STK-MED ONCE IV ; Start 11/21/16 at 07:21; Stop at 07:22; Status DC Fentanyl Citrate (Fentanyl 5ml Vial) 250 mcg STK-MED ONCE .ROUTE ; Start at 07:21; Stop 11/21/16 at 07:22; Status DC Rocuronium [place] (Zemuron) 50 mg STK-MED ONCE .ROUTE ; Start 11/21/16 at 07:22 ; Stop 11/21/16 at 07:23; Status DC Famotidine (Pepcid) 20 mg STK-MED ONCE .ROUTE ; Start 11/21/16 at 07:23; Stop at 07:24; Status DC Cellulose 1 each STK-MED ONCE .ROUTE Last administered on 11/21/16 10:29; Start 11/21/16 at 07:33; Stop 11/21/16 at 07:34; Status DC Bupivacaine HCl/ Epinephrine Bitart (Marcaine-Epi 0.5%-[id number]) 50 ml STK-MED ONCE .ROUTE Last administered on 11/21/16 08:43; Start 11/21/16 at 07:34; Stop 11/21/16 at 07:35; Status DC Cefazolin Sodium/ Dextrose 50 ml @ 100 mls/hr 1X PREOP ONCE IV Last administered on 11/21/16 08:25; Start 11/21/16 at 07:37; Stop 11/21/16 at 08:06 ; Status DC Succinylcholine Chloride (Anectine) 200 mg STK-MED ONCE .ROUTE ; Start 11/21/16 at 07:59; Stop 11/21/16 at 08:00; Status DC Sevoflurane (Ultane) 90 ml STK-MED ONCE IH ; Start 11/21/16 at 09:24; Stop 11/21 at 09:25; Status DC Rocuronium [place] (Zemuron) 50 mg STK-MED ONCE .ROUTE ; Start 11/21/16 at 09:25 ; Stop 11/21/16 at 09:26; Status DC Cellulose 1 each STK-MED ONCE .ROUTE ; Start 11/21/16 at 10:11; Stop 11/21/16 at 10:12; Status DC Sodium Bicarbonate 50 meq STK-MED ONCE .ROUTE ; Start 11/21/16 at 10:34; Stop at 10:35; Status DC Rocuronium [place] (Zemuron) 50 mg STK-MED ONCE .ROUTE ; Start 11/21/16 at 11:00 ; Stop 11/21/16 at 11:01; Status DC Sevoflurane (Ultane) 90 ml STK-MED ONCE IH ; Start 11/21/16 at 12:46; Stop 11/21 at 12:47; Status DC Piperacillin Sod/ Tazobactam Sod 3.375 gm/Sodium Chloride 50 ml @ 100 mls/hr Q6HRS IV Last administered on 11/26/16 11:40; Start 11/21/16 at 14:00; Stop at 14:43; Status DC Fentanyl Citrate (Fentanyl 2ml Vial) 25 mcg PRN Q2HR PRN IV PAIN Last administered on 11/24/16 02:49; Start 11/21/16 at 13:30; Stop 11/25/16 at 12:11 ; Status DC Fentanyl Citrate (Fentanyl 2ml Vial) 50 mcg PRN Q2HR PRN IV PAIN Last administered on 11/23/16 09:50; Start 11/21/16 at 13:30; Stop 11/25/16 at 12:11 ; Status DC Propofol 100 ml @ 0 mls/hr CONT PRN IV PER PROTOCOL Last administered on 21:08; Start 11/21/16 at 13:30; Stop 12/03/16 at 20:56; Status DC Fentanyl Citrate (Fentanyl 2ml Vial) 25 mcg PRN Q1HR PRN IV COMM Last administered on 11/27/16 06:03; Start 11/21/16 at 13:30 Fentanyl Citrate (Fentanyl 2ml Vial) 50 mcg PRN Q1HR PRN IV COMM Last administered on 11/26/16 23:08; Start 11/21/16 at 13:30 Chlorhexidine Gluconate (Peridex) 15 ml BID MM Last administered on 12/03/16 08:34; Start 11/21/16 at 21:00; Stop 12/03/16 at 20:56; Status DC Potassium Chloride/Dextrose/ Sod Cl 1,000 ml @ 100 mls/hr Q10H IV Last administered on 11/25/16 08:55; Start 11/21/16 at 15:00; Stop 11/25/16 at 21:59 ; Status DC Albuterol/ Ipratropium (Duoneb) 3 ml RTQID NEB Last administered on 12/06/16 11 :47; Start 11/23/16 at 16:00 Amino Acids/ Glycerin/ Electrolytes 1,000 ml @ 80 mls/hr [id number] IV ; Start at 16:15; Stop 11/23/16 at 18:21; Status DC Amino Acids/ Glycerin/ Electrolytes 1,000 ml @ 80 mls/hr [id number] IV Last administered on 11/24/16 08:00; Start 11/23/16 at 21:00; Stop 11/24/16 at 13:45 ; Status DC Amino Acids/ Glycerin/ Electrolytes 1,000 ml @ 80 mls/hr [id number] IV Last administered on 11/25/16 08:22; Start 11/25/16 at 08:00; Stop 11/25/16 at 21:59 ; Status DC Linezolid 300 ml @ 300 mls/hr Q12HR IV Last administered on 11/28/16 09:12; Start 11/25/16 at 10:00; Stop 11/28/16 at 12:42; Status DC Info 1 each PRN DAILY PRN MC SEE COMMENTS Last administered on 11/30/16 13:53 ; Start 11/25/16 at 11:15; Stop 12/01/16 at 09:11; Status DC Sodium Acetate 90 meq/Potassium Chloride 50 meq/ Potassium Phosphate 13.6 mmol/ Magnesium Sulfate 10 meq/ Calcium Gluconate 10 meq/ Multivitamins 10 ml/Chromium / Copper/Manganese/ Seleni/Zn 1 ml/ Total Parenteral Nutrition/Amino Acids/ Dextrose 1,512 ml @ 63 mls/hr TPN CONT IV Last administered on 11/25/16 22: 04; Start 11/25/16 at 22:00; Stop 11/26/16 at 21:59; Status DC Sodium Chloride 45 meq/Sodium Acetate 45 meq/ Potassium Chloride 50 meq/ Potassium Phosphate 17 mmol/ Magnesium Sulfate 16 meq/Calcium Gluconate 14 meq/ Multivitamins 10 ml/Chromium/ Copper/Manganese/ Seleni/Zn 1 ml/ Total Parenteral Nutrition/Amino Acids/Dextrose 1,512 ml @ 63 mls/hr TPN CONT IV Last administered on 11/26/16 21:01; Start 11/26/16 at 22:00; Stop 11/27/16 at 21:59; Status DC Potassium Phosphate 10 mmol/ Sodium Chloride 103.3333 ml @ 51.667 m... Q2H IV Last administered on 11/26/16 14:54; Start 11/26/16 at 13:30; Stop 11/26/16 at 17:29; Status DC Meropenem 500 mg/ Sodium Chloride 50 ml @ 100 mls/hr Q8HRS IV Last administered on 12/05/16 05:36; Start 11/26/16 at 15:00; Stop 12/05/16 at 07:53; Status DC Potassium Chloride/Dextrose/ Sod Cl 1,000 ml @ 37 mls/hr Q24H IV Last administered on 11/30/16 19:40; Start 11/26/16 at 20:00; Stop 12/01/16 at 09:11 ; Status DC Sodium Chloride 45 meq/Sodium Acetate 45 meq/ Potassium Chloride 50 meq/ Potassium Phosphate 17 mmol/ Magnesium Sulfate 12 meq/Calcium Gluconate 12 meq/ Multivitamins 10 ml/Chromium/ Copper/Manganese/ Seleni/Zn 1 ml/ Total Parenteral Nutrition/Amino Acids/Dextrose/ Fat Emulsion Intravenous 1,512 ml @ 63 mls/hr TPN CONT IV Last administered on 11/27/16 22:11; Start 11/27/16 at 22:00; Stop 11/28/16 at 21:59; Status DC Sodium Chloride 45 meq/Sodium Acetate 45 meq/ Potassium Chloride 50 meq/ Potassium Phosphate 17 mmol/ Magnesium Sulfate 12 meq/Calcium Gluconate 10 meq/ Multivitamins 10 ml/Chromium/ Copper/Manganese/ Seleni/Zn 1 ml/ Total Parenteral Nutrition/Amino Acids/Dextrose 1,512 ml @ 63 mls/hr TPN CONT IV Last administered on 11/28/16 21:35; Start 11/28/16 at 22:00; Stop 11/29/16 at 21:59; Status DC Sodium Chloride 45 meq/Sodium Acetate 45 meq/ Potassium Chloride 50 meq/ Potassium Phosphate 17 mmol/ Magnesium Sulfate 12 meq/ Multivitamins 10 ml/ Chromium/ Copper/Manganese/ Seleni/Zn 1 ml/ Total Parenteral Nutrition/Amino Acids/Dextrose 1,512 ml @ 63 mls/hr TPN CONT IV Last administered on 23:23; Start 11/29/16 at 22:00; Stop 11/30/16 at 21:59; Status DC Enoxaparin Sodium (Lovenox 40mg Syringe) 40 mg Q24H SQ Last administered on 12/06 08:08; Start 11/30/16 at 10:00 Sodium Chloride 45 meq/Sodium Acetate 45 meq/ Potassium Chloride 50 meq/ Potassium Phosphate 17 mmol/ Magnesium Sulfate 12 meq/ Multivitamins 10 ml/ Chromium/ Copper/Manganese/ Seleni/Zn 1 ml/ Total Parenteral Nutrition/Amino Acids/Dextrose 1,512 ml @ 63 mls/hr TPN CONT IV Last administered on 21:31; Start 11/30/16 at 22:00; Stop 12/01/16 at 21:59; Status DC Active Scripts Active Reported Aspir 81 (Aspirin) 81 Mg Tablet.dr 81 Mg PO DAILY Atorvastatin Calcium 10 Mg Tablet 1 Tab PO DAILY Aspirin 81 Mg Tab.chew 1 Tab PO DAILY Avodart (Dutasteride) 0.5 Mg Capsule 1 Cap PO DAILY Vitals/I & O Vital Sign - Last 24 Hours 12/05/16 12/05/16 12/05/16 12/05/16 14:00 15:00 16:00 16:00 Temp 99.3 99.3 Pulse 63 64 67 Resp 29 30 27 B/P (MAP) 102/56 (71) 116/65 (82) 133/71 (91) Pulse Ox 99 99 100 O2 Delivery Room Air Room Air Room Air Room Air 12/05/16 12/05/16 12/05/16 12/05/16 16:41 17:00 18:00 19:00 Temp 98.8 98.8 Pulse 69 68 69 Resp 17 27 20 B/P (MAP) 120/69 (86) 119/61 (80) 107/64 (78) Pulse Ox 98 97 98 O2 Delivery Room Air Room Air Room Air Room Air 12/05/16 12/05/16 12/05/16 12/05/16 19:51 20:00 20:00 21:00 Temp 99.5 99.5 Pulse 72 77 Resp 22 23 B/P (MAP) 134/69 (90) 106/67 (80) Pulse Ox 98 96 96 O2 Delivery Room Air Room Air Room Air Room Air 12/05/16 12/05/16 12/06/16 12/06/16 22:00 23:00 00:00 00:00 Temp 98.8 98.6 98.8 98.6 Pulse 74 71 68 Resp 21 19 14 B/P (MAP) 129/62 (84) 98/52 (67) 110/63 (79) Pulse Ox 96 96 96 O2 Delivery Room Air Room Air Room Air Room Air 12/06/16 12/06/16 12/06/16 12/06/16 01:00 02:00 03:00 04:00 Temp 97.4 97.4 Pulse 67 68 68 Resp 19 26 24 B/P (MAP) 106/59 (75) 117/64 (81) 100/57 (71) Pulse Ox 97 95 96 O2 Delivery Room Air Room Air Room Air Room Air 12/06/16 12/06/16 12/06/16 12/06/16 04:00 05:01 06:00 07:00 Temp 98.2 98.2 98.5 98.2 98.2 98.5 Pulse 68 72 77 68 Resp 19 29 26 B/P (MAP) 124/66 (85) 122/65 (84) 138/68 (91) 136/61 (86) Pulse Ox 97 100 100 98 O2 Delivery Room Air Room Air Room Air Room Air 12/06/16 12/06/16 12/06/16 12/06/16 08:00 08:00 08:16 09:00 Temp 99.4 99.4 99.4 99.4 Pulse 69 70 Resp 35 24 B/P (MAP) 116/61 (79) 118/71 (87) Pulse Ox 96 98 98 O2 Delivery Room Air Room Air Room Air Room Air 12/06/16 12/06/16 12/06/16 12/06/16 10:00 11:00 11:47 12:00 Temp 98.2 97.8 97.9 98.2 97.8 97.9 Pulse 66 62 67 Resp 20 24 24 B/P (MAP) 95/57 (70) 102/59 (73) 99/64 (76) Pulse Ox 96 100 100 99 O2 Delivery Room Air Room Air Room Air Room Air 12/06/16 12/06/16 12:00 13:00 Temp 98.7 98.7 Pulse 67 Resp 24 B/P (MAP) 109/60 (76) Pulse Ox 100 O2 Delivery Room Air Room Air Intake and Output 12/05/16 12/05/16 12/06/16 15:00 23:00 07:00 Intake Total 65 ml 569 ml 555 ml Output Total 335 ml 1025 ml 875 ml Balance -270 ml -456 ml -320 ml LUX FOREMAN MD Dec 06, 2016 13:30
--- NOTE | 2016-12-06 14:31 | PDOC ---
QIANA GIBSON PACKER 12/06/16 1431: SURGICAL PROGRESS NOTE Subjective cannot tell me where he is denies pain Vital Signs Vital Signs Date Time Temp Pulse Resp B/P (MAP) Pulse Ox O2 Delivery O2 Flow Rate FiO2 12/06/16 14:00 98.2 68 24 114/50 (71) 97 Room Air 98.2 I&O Intake and Output 12/06/16 07:00 Intake Total 1189 ml Output Total 2235 ml Balance -1046 ml IV Total 50 ml Tube Feeding 969 ml Other 170 ml Output Urine Total 2235 ml Gastric Drainage Total 0 ml General: Other (confused, restless moving sheets around ) Abdomen: Soft, Other (wound without erythema, drainage on dressing--serosang color) Labs Laboratory Tests Test 12/06/16 05:25 12/06/16 06:45 Sodium Level 140 mmol/L (136-145) Potassium Level 4.4 mmol/L (3.5-5.1) Chloride Level 106 mmol/L (98-107) Carbon Dioxide Level 29 mmol/L (21-32) Anion Gap 5 (6-14) Blood Urea Nitrogen 22 mg/dL (8-26) Creatinine 0.8 mg/dL (0.7-1.3) Estimated GFR (Cockcroft-Gault) 91.9 BUN/Creatinine Ratio 28 (6-20) Glucose Level 105 mg/dL (70-99) Calcium Level 8.9 mg/dL (8.5-10.1) Total Bilirubin 0.5 mg/dL (0.2-1.0) Aspartate Amino Transf (AST/SGOT) 47 U/L (15-37) Alanine Aminotransferase (ALT/SGPT) 112 U/L (16-63) Alkaline Phosphatase 125 U/L (46-116) Total Protein 5.9 g/dL (6.4-8.2) Albumin 2.1 g/dL (3.4-5.0) Albumin/Globulin Ratio 0.6 (1.0-1.7) Glucose (Fingerstick) 116 mg/dL (70-99) Laboratory Tests Test 12/06/16 05:25 12/06/16 06:45 Sodium Level 140 mmol/L (136-145) Potassium Level 4.4 mmol/L (3.5-5.1) Chloride Level 106 mmol/L (98-107) Carbon Dioxide Level 29 mmol/L (21-32) Anion Gap 5 (6-14) Blood Urea Nitrogen 22 mg/dL (8-26) Creatinine 0.8 mg/dL (0.7-1.3) Estimated GFR (Cockcroft-Gault) 91.9 BUN/Creatinine Ratio 28 (6-20) Glucose Level 105 mg/dL (70-99) Calcium Level 8.9 mg/dL (8.5-10.1) Total Bilirubin 0.5 mg/dL (0.2-1.0) Aspartate Amino Transf (AST/SGOT) 47 U/L (15-37) Alanine Aminotransferase (ALT/SGPT) 112 U/L (16-63) Alkaline Phosphatase 125 U/L (46-116) Total Protein 5.9 g/dL (6.4-8.2) Albumin 2.1 g/dL (3.4-5.0) Albumin/Globulin Ratio 0.6 (1.0-1.7) Glucose (Fingerstick) 116 mg/dL (70-99) Problem List Problems Medical Problems: (1) Upper GI bleeding Status: Acute Assessment/Plan supportive care, no surgical recs, some drainage from incision-wound care Problems: SYDNEE MCCRACKEN MD 12/07/16 1910: SURGICAL PROGRESS NOTE Assessment/Plan Agree Problems: QIANA GIBSON PACKER Dec 06, 2016 14:31 SYDNEE MCCRACKEN MD Dec 07, 2016 19:10
[2016-12-06] MEDS: ATORVASTATIN CALCIUM 10 MG TABLET. PO SCH (20:53)
[2016-12-06] MEDS: fentaNYL PF VIAL 100 MCG/2 ML VIAL IV PRN ×2 (22:47→23:46)
[2016-12-07] VITALS (13 sets, daily range): BP systolic 119–161; BP diastolic 57–88
[2016-12-07] MEDS: IPRATRPIUM/ALBUTEROL 0.5/2.5MG 3 ML NEBU. NEB SCH ×2 (08:04→11:01)
--- NOTE | 2016-12-07 08:18 | PDOC ---
Infectious Disease Note Subjective Subjective arousable ROS ROS no n/v/d/pain Vital Sign Vital Signs Vital Signs Date Time Temp Pulse Resp B/P (MAP) Pulse Ox O2 Delivery O2 Flow Rate FiO2 12/07/16 08:06 97 Room Air 12/07/16 06:15 73 28 143/71 (95) 12/07/16 05:01 97.7 97.7 12/07/16 04:00 3.0 Physical Exam PHYSICAL EXAM GENERAL: NAD, Alert HEENT: PERRL, OC/OP NECK: Supple, no JVD, no LN LUNGS: Clear HEART: S1S2, no gallop, no murmur ABD: Soft, NT, no organomegaly, no rebound EXT: No edema, no cyanosis PERFORMANCE IMPROVEMENT DIRECTOR: Alert, , no focal neurologic deficit, demented SKIN: No rash IV: ok Objective Assessment Fever, improved Leukocytosis, stable Aspiration pneumonia. s/p bronch 11/22. GS: GPC & yeast. Final cx yeast only. 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 Acute respiratory failure Anemia s/p PRBCs 11/27 Pacemaker Dementia Plan Plan of Care off antibiotics Monitor labs Supportive care DNR/DNI JANES BEJARANO MD Dec 07, 2016 08:17
[2016-12-07] MEDS: DUTASTERIDE 0.5 MG CAPSULE PO SCH (09:00)
[2016-12-07] MEDS: FAMOTIDINE 20 MG/2 ML VIAL IVP SCH (10:05)
[2016-12-07] MEDS: ENOXAPARIN 40 MG/0.4 ML SYRINGE. SQ SCH (10:05)
--- NOTE | 2016-12-07 10:32 | PDOC2 ---
PALLIATIVE CARE Palliative Care Note Palliative Care Patient somnolent. Spoke with . Understands we are waiting on Insurance to approve to go to [facility]. Spoke with Alpa FUNEZ. Deferred to Sandra GALEANO who is waiting decision from Insurance. voiced concern that she is not seeing improvement. Briefly discussed options if patient does not improve. Hospice in Nursing Facility or Home would be option. Will await direction from insurance and .Sandra GALEANO. KAYLA VITAL Dec 07, 2016 10:32
--- NOTE | 2016-12-07 11:29 | PDOC ---
G I PROGRESS NOTE Subjective No specific complaints. Not as bright as yesterday, but will interact. Physical Exam Lungs clear. RRR Abdomen soft, not distended nor tender. G-tube. Review of Relevant I have reviewed the following items cordell (where applicable) has been applied. Labs Laboratory Tests Test 12/06/16 05:25 12/06/16 06:45 Sodium Level 140 mmol/L (136-145) Potassium Level 4.4 mmol/L (3.5-5.1) Chloride Level 106 mmol/L (98-107) Carbon Dioxide Level 29 mmol/L (21-32) Anion Gap 5 (6-14) Blood Urea Nitrogen 22 mg/dL (8-26) Creatinine 0.8 mg/dL (0.7-1.3) Estimated GFR (Cockcroft-Gault) 91.9 BUN/Creatinine Ratio 28 (6-20) Glucose Level 105 mg/dL (70-99) Calcium Level 8.9 mg/dL (8.5-10.1) Total Bilirubin 0.5 mg/dL (0.2-1.0) Aspartate Amino Transf (AST/SGOT) 47 U/L (15-37) Alanine Aminotransferase (ALT/SGPT) 112 U/L (16-63) Alkaline Phosphatase 125 U/L (46-116) Total Protein 5.9 g/dL (6.4-8.2) Albumin 2.1 g/dL (3.4-5.0) Albumin/Globulin Ratio 0.6 (1.0-1.7) Glucose (Fingerstick) 116 mg/dL (70-99) Microbiology 11/25/16 Blood Culture - Final, Complete NO GROWTH AFTER 5 DAYS 11/24/16 Gram Stain - Final, Complete 11/19/16 Urine Culture - Final, Complete 11/19/16 Urine Culture Result 1 ([facility]) - Final, Complete Medications Current Medications Sodium Chloride 1,000 ml @ 1,000 mls/hr 1X ONCE IV Last administered on 20:55; Start 11/19/16 at 20:45; Stop 11/19/16 at 21:44; Status DC Famotidine (Pepcid) 40 mg 1X ONCE IVP Last administered on 11/19/16 21:54; Start 11/19/16 at 21:30; Stop 11/19/16 at 21:31; Status DC Ondansetron HCl (Zofran) 4 mg PRN Q8HRS PRN IV NAUSEA/VOMITING Last administered on 11/19/16 21:54; Start 11/19/16 at 21:45; Stop 11/20/16 at 10:44 ; Status DC Morphine Sulfate 2 mg PRN Q2HR PRN IV PAIN; Start 11/19/16 at 21:45; Stop 11/20 at 21:44; Status DC Sodium Chloride 1,000 ml @ 110 mls/hr Q9H6M IV Last administered on 11/20/16 17:53; Start 11/19/16 at 21:41; Stop 11/20/16 at 21:40; Status DC Ondansetron HCl (Zofran) 4 mg PRN Q6HRS PRN IV NAUSEA/VOMITING; Start 11/20/16 at 10:42; Stop 11/21/16 at 10:41; Status DC Famotidine (Pepcid) 20 mg BID IVP Last administered on 12/07/16 10:05; Start at 11:00 Atorvastatin Calcium (Lipitor) 10 mg QHS PO Last administered on 12/06/16 20:53 ; Start 11/20/16 at 21:00 Dutasteride (Avodart) 0.5 mg DAILY PO ; Start 11/20/16 at 11:00 Labetalol HCl (Normodyne) 10 mg PRN Q2HR PRN IVP HYPERTENSION, SEE COMMENTS; Start 11/20/16 at 10:45 Acetaminophen (Tylenol) 500 mg PRN Q6HRS PRN PO MILD PAIN / TEMP Last administered on 12/06/16 08:08; Start 11/20/16 at 10:45 Ondansetron HCl (Zofran) 4 mg PRN Q6HRS PRN IV NAUSEA/VOMITING; Start 11/21/16 at 07:00; Stop 11/22/16 at 06:59; Status DC Fentanyl Citrate (Fentanyl 2ml Vial) 25 mcg PRN Q5MIN PRN IV MILD PAIN; Start 11/21/16 at 07:00; Stop 11/22/16 at 06:59; Status DC Fentanyl Citrate (Fentanyl 2ml Vial) 50 mcg PRN Q5MIN PRN IV MODERATE PAIN; Start 11/21/16 at 07:00; Stop 11/22/16 at 06:59; Status DC Morphine Sulfate 1 mg PRN Q10MIN PRN IV SEVERE PAIN; Start 11/21/16 at 07:00; Stop 11/22/16 at 06:59; Status DC Ringer's Solution 1,000 ml @ 30 mls/hr Q24H IV ; Start 11/21/16 at 07:00; Stop 11/21/16 at 18:59; Status DC Lidocaine HCl 2 ml PRN 1X PRN ID PRIOR TO IV START; Start 11/21/16 at 07:00; Stop 11/22/16 at 06:59; Status DC Hydromorphone HCl (Dilaudid) 0.5 mg PRN Q10MIN PRN IV SEV PAIN, Second choice; Start 11/21/16 at 07:00; Stop 11/22/16 at 06:59; Status DC Prochlorperazine Edisylate (Compazine) 5 mg PACU PRN PRN IV NAUSEA, MRX1; Start 11/21/16 at 07:00; Stop 11/22/16 at 06:59; Status DC Hydralazine HCl (Apresoline) 10 mg PRN Q4HRS PRN IVP ELEVATED BP, SEE COMMENTS ; Start 11/20/16 at 15:30 Propofol 20 ml @ As Directed STK-MED ONCE IV ; Start 11/21/16 at 07:20; Stop at 07:21; Status DC Lidocaine HCl (Lidocaine Pf 2% Vial) 5 ml STK-MED ONCE .ROUTE ; Start 11/21/16 at 07:20; Stop 11/21/16 at 07:21; Status DC Ondansetron HCl (Zofran) 4 mg STK-MED ONCE .ROUTE ; Start 11/21/16 at 07:20; Stop 11/21/16 at 07:21; Status DC Dexamethasone Sodium Phosphate (Decadron) 20 mg STK-MED ONCE .ROUTE ; Start at 07:20; Stop 11/21/16 at 07:21; Status DC Phenylephrine HCl 1 mg STK-MED ONCE IV ; Start 11/21/16 at 07:21; Stop 11/21/16 at 07:22; Status DC Ephedrine Sulfate 50 mg STK-MED ONCE IV ; Start 11/21/16 at 07:21; Stop at 07:22; Status DC Fentanyl Citrate (Fentanyl 5ml Vial) 250 mcg STK-MED ONCE .ROUTE ; Start at 07:21; Stop 11/21/16 at 07:22; Status DC Rocuronium [place] (Zemuron) 50 mg STK-MED ONCE .ROUTE ; Start 11/21/16 at 07:22 ; Stop 11/21/16 at 07:23; Status DC Famotidine (Pepcid) 20 mg STK-MED ONCE .ROUTE ; Start 11/21/16 at 07:23; Stop at 07:24; Status DC Cellulose 1 each STK-MED ONCE .ROUTE Last administered on 11/21/16 10:29; Start 11/21/16 at 07:33; Stop 11/21/16 at 07:34; Status DC Bupivacaine HCl/ Epinephrine Bitart (Marcaine-Epi 0.5%-[id number]) 50 ml STK-MED ONCE .ROUTE Last administered on 11/21/16 08:43; Start 11/21/16 at 07:34; Stop 11/21/16 at 07:35; Status DC Cefazolin Sodium/ Dextrose 50 ml @ 100 mls/hr 1X PREOP ONCE IV Last administered on 11/21/16 08:25; Start 11/21/16 at 07:37; Stop 11/21/16 at 08:06 ; Status DC Succinylcholine Chloride (Anectine) 200 mg STK-MED ONCE .ROUTE ; Start 11/21/16 at 07:59; Stop 11/21/16 at 08:00; Status DC Sevoflurane (Ultane) 90 ml STK-MED ONCE IH ; Start 11/21/16 at 09:24; Stop 11/21 at 09:25; Status DC Rocuronium [place] (Zemuron) 50 mg STK-MED ONCE .ROUTE ; Start 11/21/16 at 09:25 ; Stop 11/21/16 at 09:26; Status DC Cellulose 1 each STK-MED ONCE .ROUTE ; Start 11/21/16 at 10:11; Stop 11/21/16 at 10:12; Status DC Sodium Bicarbonate 50 meq STK-MED ONCE .ROUTE ; Start 11/21/16 at 10:34; Stop at 10:35; Status DC Rocuronium [place] (Zemuron) 50 mg STK-MED ONCE .ROUTE ; Start 11/21/16 at 11:00 ; Stop 11/21/16 at 11:01; Status DC Sevoflurane (Ultane) 90 ml STK-MED ONCE IH ; Start 11/21/16 at 12:46; Stop 11/21 at 12:47; Status DC Piperacillin Sod/ Tazobactam Sod 3.375 gm/Sodium Chloride 50 ml @ 100 mls/hr Q6HRS IV Last administered on 11/26/16 11:40; Start 11/21/16 at 14:00; Stop at 14:43; Status DC Fentanyl Citrate (Fentanyl 2ml Vial) 25 mcg PRN Q2HR PRN IV PAIN Last administered on 11/24/16 02:49; Start 11/21/16 at 13:30; Stop 11/25/16 at 12:11 ; Status DC Fentanyl Citrate (Fentanyl 2ml Vial) 50 mcg PRN Q2HR PRN IV PAIN Last administered on 11/23/16 09:50; Start 11/21/16 at 13:30; Stop 11/25/16 at 12:11 ; Status DC Propofol 100 ml @ 0 mls/hr CONT PRN IV PER PROTOCOL Last administered on 21:08; Start 11/21/16 at 13:30; Stop 12/03/16 at 20:56; Status DC Fentanyl Citrate (Fentanyl 2ml Vial) 25 mcg PRN Q1HR PRN IV COMM Last administered on 11/27/16 06:03; Start 11/21/16 at 13:30 Fentanyl Citrate (Fentanyl 2ml Vial) 50 mcg PRN Q1HR PRN IV COMM Last administered on 12/06/16 23:46; Start 11/21/16 at 13:30 Chlorhexidine Gluconate (Peridex) 15 ml BID MM Last administered on 12/03/16 08:34; Start 11/21/16 at 21:00; Stop 12/03/16 at 20:56; Status DC Potassium Chloride/Dextrose/ Sod Cl 1,000 ml @ 100 mls/hr Q10H IV Last administered on 11/25/16 08:55; Start 11/21/16 at 15:00; Stop 11/25/16 at 21:59 ; Status DC Albuterol/ Ipratropium (Duoneb) 3 ml RTQID NEB Last administered on 12/07/16 11 :01; Start 11/23/16 at 16:00 Amino Acids/ Glycerin/ Electrolytes 1,000 ml @ 80 mls/hr [id number] IV ; Start at 16:15; Stop 11/23/16 at 18:21; Status DC Amino Acids/ Glycerin/ Electrolytes 1,000 ml @ 80 mls/hr [id number] IV Last administered on 11/24/16 08:00; Start 11/23/16 at 21:00; Stop 11/24/16 at 13:45 ; Status DC Amino Acids/ Glycerin/ Electrolytes 1,000 ml @ 80 mls/hr [id number] IV Last administered on 11/25/16 08:22; Start 11/25/16 at 08:00; Stop 11/25/16 at 21:59 ; Status DC Linezolid 300 ml @ 300 mls/hr Q12HR IV Last administered on 11/28/16 09:12; Start 11/25/16 at 10:00; Stop 11/28/16 at 12:42; Status DC Info 1 each PRN DAILY PRN MC SEE COMMENTS Last administered on 11/30/16 13:53 ; Start 11/25/16 at 11:15; Stop 12/01/16 at 09:11; Status DC Sodium Acetate 90 meq/Potassium Chloride 50 meq/ Potassium Phosphate 13.6 mmol/ Magnesium Sulfate 10 meq/ Calcium Gluconate 10 meq/ Multivitamins 10 ml/Chromium / Copper/Manganese/ Seleni/Zn 1 ml/ Total Parenteral Nutrition/Amino Acids/ Dextrose 1,512 ml @ 63 mls/hr TPN CONT IV Last administered on 11/25/16 22: 04; Start 11/25/16 at 22:00; Stop 11/26/16 at 21:59; Status DC Sodium Chloride 45 meq/Sodium Acetate 45 meq/ Potassium Chloride 50 meq/ Potassium Phosphate 17 mmol/ Magnesium Sulfate 16 meq/Calcium Gluconate 14 meq/ Multivitamins 10 ml/Chromium/ Copper/Manganese/ Seleni/Zn 1 ml/ Total Parenteral Nutrition/Amino Acids/Dextrose 1,512 ml @ 63 mls/hr TPN CONT IV Last administered on 11/26/16 21:01; Start 11/26/16 at 22:00; Stop 11/27/16 at 21:59; Status DC Potassium Phosphate 10 mmol/ Sodium Chloride 103.3333 ml @ 51.667 m... Q2H IV Last administered on 11/26/16 14:54; Start 11/26/16 at 13:30; Stop 11/26/16 at 17:29; Status DC Meropenem 500 mg/ Sodium Chloride 50 ml @ 100 mls/hr Q8HRS IV Last administered on 12/05/16 05:36; Start 11/26/16 at 15:00; Stop 12/05/16 at 07:53; Status DC Potassium Chloride/Dextrose/ Sod Cl 1,000 ml @ 37 mls/hr Q24H IV Last administered on 11/30/16 19:40; Start 11/26/16 at 20:00; Stop 12/01/16 at 09:11 ; Status DC Sodium Chloride 45 meq/Sodium Acetate 45 meq/ Potassium Chloride 50 meq/ Potassium Phosphate 17 mmol/ Magnesium Sulfate 12 meq/Calcium Gluconate 12 meq/ Multivitamins 10 ml/Chromium/ Copper/Manganese/ Seleni/Zn 1 ml/ Total Parenteral Nutrition/Amino Acids/Dextrose/ Fat Emulsion Intravenous 1,512 ml @ 63 mls/hr TPN CONT IV Last administered on 11/27/16 22:11; Start 11/27/16 at 22:00; Stop 11/28/16 at 21:59; Status DC Sodium Chloride 45 meq/Sodium Acetate 45 meq/ Potassium Chloride 50 meq/ Potassium Phosphate 17 mmol/ Magnesium Sulfate 12 meq/Calcium Gluconate 10 meq/ Multivitamins 10 ml/Chromium/ Copper/Manganese/ Seleni/Zn 1 ml/ Total Parenteral Nutrition/Amino Acids/Dextrose 1,512 ml @ 63 mls/hr TPN CONT IV Last administered on 11/28/16 21:35; Start 11/28/16 at 22:00; Stop 11/29/16 at 21:59; Status DC Sodium Chloride 45 meq/Sodium Acetate 45 meq/ Potassium Chloride 50 meq/ Potassium Phosphate 17 mmol/ Magnesium Sulfate 12 meq/ Multivitamins 10 ml/ Chromium/ Copper/Manganese/ Seleni/Zn 1 ml/ Total Parenteral Nutrition/Amino Acids/Dextrose 1,512 ml @ 63 mls/hr TPN CONT IV Last administered on 23:23; Start 11/29/16 at 22:00; Stop 11/30/16 at 21:59; Status DC Enoxaparin Sodium (Lovenox 40mg Syringe) 40 mg Q24H SQ Last administered on 12/07 10:05; Start 11/30/16 at 10:00 Sodium Chloride 45 meq/Sodium Acetate 45 meq/ Potassium Chloride 50 meq/ Potassium Phosphate 17 mmol/ Magnesium Sulfate 12 meq/ Multivitamins 10 ml/ Chromium/ Copper/Manganese/ Seleni/Zn 1 ml/ Total Parenteral Nutrition/Amino Acids/Dextrose 1,512 ml @ 63 mls/hr TPN CONT IV Last administered on 21:31; Start 11/30/16 at 22:00; Stop 12/01/16 at 21:59; Status DC Active Scripts Active Reported Aspir 81 (Aspirin) 81 Mg Tablet.dr 81 Mg PO DAILY Atorvastatin Calcium 10 Mg Tablet 1 Tab PO DAILY Aspirin 81 Mg Tab.chew 1 Tab PO DAILY Avodart (Dutasteride) 0.5 Mg Capsule 1 Cap PO DAILY Vitals/I & O Vital Sign - Last 24 Hours 12/06/16 12/06/16 12/06/16 12/06/16 11:47 12:00 12:00 13:00 Temp 97.9 98.7 97.9 98.7 Pulse 67 67 Resp 24 24 B/P (MAP) 99/64 (76) 109/60 (76) Pulse Ox 100 99 100 O2 Delivery Room Air Room Air Room Air Room Air 12/06/16 12/06/16 12/06/16 12/06/16 14:00 15:00 15:43 16:00 Temp 98.2 98.4 98.2 98.4 Pulse 68 67 Resp 24 24 B/P (MAP) 114/50 (71) 121/58 (79) Pulse Ox 97 97 O2 Delivery Room Air Room Air Room Air Room Air O2 Flow Rate 3.0 12/06/16 12/06/16 12/06/16 12/06/16 16:00 17:04 18:00 19:35 Temp 98.4 98.9 98.4 98.9 Pulse 71 67 67 Resp 24 24 22 B/P (MAP) 116/52 (73) 106/65 (79) 138/63 (88) Pulse Ox 98 98 98 O2 Delivery Room Air Room Air Room Air Room Air 12/06/16 12/06/16 12/06/16 12/06/16 19:47 19:53 20:06 21:10 Temp 98.9 98.4 98.9 98.4 Pulse 69 72 Resp 24 B/P (MAP) 142/69 (93) 111/45 (67) Pulse Ox 97 99 97 O2 Delivery Room Air Room Air Room Air Room Air O2 Flow Rate 3.0 12/06/16 12/06/16 12/06/16 12/06/16 22:19 22:47 23:04 23:46 Pulse 75 81 Resp 20 24 24 24 B/P (MAP) 126/45 (72) 154/77 (102) Pulse Ox 98 98 98 98 O2 Delivery Room Air Room Air Room Air Room Air 12/07/16 12/07/16 12/07/16 12/07/16 00:04 00:09 00:20 01:00 Pulse 77 74 Resp 20 18 18 B/P (MAP) 152/82 (105) 133/64 (87) Pulse Ox 98 98 96 O2 Delivery Room Air Room Air Room Air Room Air O2 Flow Rate 3.0 12/07/16 12/07/16 12/07/16 12/07/16 02:11 03:07 04:00 04:00 Temp 98.0 98.0 Pulse 74 72 74 Resp 18 24 20 B/P (MAP) 135/65 (88) 135/63 (87) 135/72 (93) Pulse Ox 97 99 97 O2 Delivery Room Air Room Air Room Air Room Air O2 Flow Rate 3.0 12/07/16 12/07/16 12/07/16 12/07/16 05:01 06:15 07:00 08:00 Temp 97.7 99.0 97.7 99.0 Pulse 72 73 76 75 Resp 26 28 24 20 B/P (MAP) 133/66 (88) 143/71 (95) 161/71 (101) 130/88 (102) Pulse Ox 96 97 92 97 O2 Delivery Room Air Room Air Room Air Room Air 12/07/16 12/07/16 12/07/16 12/07/16 08:00 08:06 09:00 11:03 Pulse 79 Resp 26 B/P (MAP) 119/57 (77) Pulse Ox 97 97 100 O2 Delivery Room Air Room Air Room Air Room Air Intake and Output 12/06/16 12/06/16 12/07/16 15:00 23:00 07:00 Intake Total 170 ml 220 ml 610 ml Output Total 350 ml 700 ml 600 ml Balance -180 ml -480 ml 10 ml Problem List Problems Medical Problems: (1) Upper GI bleeding Status: Acute Assessment Stable, GI-vines and tolerating tube feedings. Plan of Care: Continue current Tx, Mgmt Plan of Care Note OK with us transfer to [facility]. WILBERTO ROBERTS MD Dec 07, 2016 11:29
--- NOTE | 2016-12-07 12:17 | PDOC ---
PROGRESS NOTES Chief Complaint Chief Complaint hematemesis, GI bleed, upper, req. surgery on admit 1. 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 2. Acute respiratory failure: On mechanical ventilation, aspiration pneumonia. sputum cx + GNR. on zyvox and meropenum with ID 3. Leukocytosis 4. Hx Arrhythmia NOS: hx pacer placement 5. Prophylaxis: SCDs; 6. 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 7. hypophosphatemia: 8. DNR now, off vent, on RA, breathing well, but tachypneic 9. OMARI, 10. moderate malnutrition, not POA History of Present Illness History of Present Illness off vent, doing well, but very confused, and still tachypneic, open mouth posture at rest and daughter in room, he is responding to them follows commands well, seems calm, not oriented, calm and follows most commands cont IV fluid speech and PT and OT to be more aggressive today Supportive care still DNR, plan transfer to LTAC, soon Vitals Vitals Vital Signs Date Time Temp Pulse Resp B/P (MAP) Pulse Ox O2 Delivery O2 Flow Rate FiO2 12/07/16 11:03 100 Room Air 12/07/16 11:00 74 26 121/67 (85) 12/07/16 08:00 99.0 99.0 12/07/16 04:00 3.0 Physical Exam Physical Exam lethargic, off vent, breathing well, , RA General: Other (confused, restless moving sheets around ) Heart: Regular rate, Normal S1, Normal S2 Lungs: Clear Abdomen: Soft, Other (wound without erythema, drainage on dressing--serosang color) Extremities: No clubbing, No cyanosis Skin: No rashes, No breakdown Assessment and Plan Assessmemt and Plan Problems Medical Problems: (1) Upper GI bleeding Status: Acute Problems: Comment Review of Relevant I have reviewed the following items cordell (where applicable) has been applied. Labs Laboratory Tests Test 12/06/16 05:25 12/06/16 06:45 Sodium Level 140 mmol/L (136-145) Potassium Level 4.4 mmol/L (3.5-5.1) Chloride Level 106 mmol/L (98-107) Carbon Dioxide Level 29 mmol/L (21-32) Anion Gap 5 (6-14) Blood Urea Nitrogen 22 mg/dL (8-26) Creatinine 0.8 mg/dL (0.7-1.3) Estimated GFR (Cockcroft-Gault) 91.9 BUN/Creatinine Ratio 28 (6-20) Glucose Level 105 mg/dL (70-99) Calcium Level 8.9 mg/dL (8.5-10.1) Total Bilirubin 0.5 mg/dL (0.2-1.0) Aspartate Amino Transf (AST/SGOT) 47 U/L (15-37) Alanine Aminotransferase (ALT/SGPT) 112 U/L (16-63) Alkaline Phosphatase 125 U/L (46-116) Total Protein 5.9 g/dL (6.4-8.2) Albumin 2.1 g/dL (3.4-5.0) Albumin/Globulin Ratio 0.6 (1.0-1.7) Glucose (Fingerstick) 116 mg/dL (70-99) Microbiology 11/25/16 Blood Culture - Final, Complete NO GROWTH AFTER 5 DAYS 11/24/16 Gram Stain - Final, Complete 11/19/16 Urine Culture - Final, Complete 11/19/16 Urine Culture Result 1 ([facility]) - Final, Complete Medications Current Medications Sodium Chloride 1,000 ml @ 1,000 mls/hr 1X ONCE IV Last administered on 20:55; Start 11/19/16 at 20:45; Stop 11/19/16 at 21:44; Status DC Famotidine (Pepcid) 40 mg 1X ONCE IVP Last administered on 11/19/16 21:54; Start 11/19/16 at 21:30; Stop 11/19/16 at 21:31; Status DC Ondansetron HCl (Zofran) 4 mg PRN Q8HRS PRN IV NAUSEA/VOMITING Last administered on 11/19/16 21:54; Start 11/19/16 at 21:45; Stop 11/20/16 at 10:44 ; Status DC Morphine Sulfate 2 mg PRN Q2HR PRN IV PAIN; Start 11/19/16 at 21:45; Stop 11/20 at 21:44; Status DC Sodium Chloride 1,000 ml @ 110 mls/hr Q9H6M IV Last administered on 11/20/16 17:53; Start 11/19/16 at 21:41; Stop 11/20/16 at 21:40; Status DC Ondansetron HCl (Zofran) 4 mg PRN Q6HRS PRN IV NAUSEA/VOMITING; Start 11/20/16 at 10:42; Stop 11/21/16 at 10:41; Status DC Famotidine (Pepcid) 20 mg BID IVP Last administered on 12/07/16 10:05; Start at 11:00 Atorvastatin Calcium (Lipitor) 10 mg QHS PO Last administered on 12/06/16 20:53 ; Start 11/20/16 at 21:00 Dutasteride (Avodart) 0.5 mg DAILY PO ; Start 11/20/16 at 11:00 Labetalol HCl (Normodyne) 10 mg PRN Q2HR PRN IVP HYPERTENSION, SEE COMMENTS; Start 11/20/16 at 10:45 Acetaminophen (Tylenol) 500 mg PRN Q6HRS PRN PO MILD PAIN / TEMP Last administered on 12/06/16 08:08; Start 11/20/16 at 10:45 Ondansetron HCl (Zofran) 4 mg PRN Q6HRS PRN IV NAUSEA/VOMITING; Start 11/21/16 at 07:00; Stop 11/22/16 at 06:59; Status DC Fentanyl Citrate (Fentanyl 2ml Vial) 25 mcg PRN Q5MIN PRN IV MILD PAIN; Start 11/21/16 at 07:00; Stop 11/22/16 at 06:59; Status DC Fentanyl Citrate (Fentanyl 2ml Vial) 50 mcg PRN Q5MIN PRN IV MODERATE PAIN; Start 11/21/16 at 07:00; Stop 11/22/16 at 06:59; Status DC Morphine Sulfate 1 mg PRN Q10MIN PRN IV SEVERE PAIN; Start 11/21/16 at 07:00; Stop 11/22/16 at 06:59; Status DC Ringer's Solution 1,000 ml @ 30 mls/hr Q24H IV ; Start 11/21/16 at 07:00; Stop 11/21/16 at 18:59; Status DC Lidocaine HCl 2 ml PRN 1X PRN ID PRIOR TO IV START; Start 11/21/16 at 07:00; Stop 11/22/16 at 06:59; Status DC Hydromorphone HCl (Dilaudid) 0.5 mg PRN Q10MIN PRN IV SEV PAIN, Second choice; Start 11/21/16 at 07:00; Stop 11/22/16 at 06:59; Status DC Prochlorperazine Edisylate (Compazine) 5 mg PACU PRN PRN IV NAUSEA, MRX1; Start 11/21/16 at 07:00; Stop 11/22/16 at 06:59; Status DC Hydralazine HCl (Apresoline) 10 mg PRN Q4HRS PRN IVP ELEVATED BP, SEE COMMENTS ; Start 11/20/16 at 15:30 Propofol 20 ml @ As Directed STK-MED ONCE IV ; Start 11/21/16 at 07:20; Stop at 07:21; Status DC Lidocaine HCl (Lidocaine Pf 2% Vial) 5 ml STK-MED ONCE .ROUTE ; Start 11/21/16 at 07:20; Stop 11/21/16 at 07:21; Status DC Ondansetron HCl (Zofran) 4 mg STK-MED ONCE .ROUTE ; Start 11/21/16 at 07:20; Stop 11/21/16 at 07:21; Status DC Dexamethasone Sodium Phosphate (Decadron) 20 mg STK-MED ONCE .ROUTE ; Start at 07:20; Stop 11/21/16 at 07:21; Status DC Phenylephrine HCl 1 mg STK-MED ONCE IV ; Start 11/21/16 at 07:21; Stop 11/21/16 at 07:22; Status DC Ephedrine Sulfate 50 mg STK-MED ONCE IV ; Start 11/21/16 at 07:21; Stop at 07:22; Status DC Fentanyl Citrate (Fentanyl 5ml Vial) 250 mcg STK-MED ONCE .ROUTE ; Start at 07:21; Stop 11/21/16 at 07:22; Status DC Rocuronium Baltic (Zemuron) 50 mg STK-MED ONCE .ROUTE ; Start 11/21/16 at 07:22 ; Stop 11/21/16 at 07:23; Status DC Famotidine (Pepcid) 20 mg STK-MED ONCE .ROUTE ; Start 11/21/16 at 07:23; Stop at 07:24; Status DC Cellulose 1 each STK-MED ONCE .ROUTE Last administered on 11/21/16 10:29; Start 11/21/16 at 07:33; Stop 11/21/16 at 07:34; Status DC Bupivacaine HCl/ Epinephrine Bitart (Marcaine-Epi 0.5%-[id number]) 50 ml STK-MED ONCE .ROUTE Last administered on 11/21/16 08:43; Start 11/21/16 at 07:34; Stop 11/21/16 at 07:35; Status DC Cefazolin Sodium/ Dextrose 50 ml @ 100 mls/hr 1X PREOP ONCE IV Last administered on 11/21/16 08:25; Start 11/21/16 at 07:37; Stop 11/21/16 at 08:06 ; Status DC Succinylcholine Chloride (Anectine) 200 mg STK-MED ONCE .ROUTE ; Start 11/21/16 at 07:59; Stop 11/21/16 at 08:00; Status DC Sevoflurane (Ultane) 90 ml STK-MED ONCE IH ; Start 11/21/16 at 09:24; Stop 11/21 at 09:25; Status DC Rocuronium Baltic (Zemuron) 50 mg STK-MED ONCE .ROUTE ; Start 11/21/16 at 09:25 ; Stop 11/21/16 at 09:26; Status DC Cellulose 1 each STK-MED ONCE .ROUTE ; Start 11/21/16 at 10:11; Stop 11/21/16 at 10:12; Status DC Sodium Bicarbonate 50 meq STK-MED ONCE .ROUTE ; Start 11/21/16 at 10:34; Stop at 10:35; Status DC Rocuronium Baltic (Zemuron) 50 mg STK-MED ONCE .ROUTE ; Start 11/21/16 at 11:00 ; Stop 11/21/16 at 11:01; Status DC Sevoflurane (Ultane) 90 ml STK-MED ONCE IH ; Start 11/21/16 at 12:46; Stop 11/21 at 12:47; Status DC Piperacillin Sod/ Tazobactam Sod 3.375 gm/Sodium Chloride 50 ml @ 100 mls/hr Q6HRS IV Last administered on 11/26/16 11:40; Start 11/21/16 at 14:00; Stop at 14:43; Status DC Fentanyl Citrate (Fentanyl 2ml Vial) 25 mcg PRN Q2HR PRN IV PAIN Last administered on 11/24/16 02:49; Start 11/21/16 at 13:30; Stop 11/25/16 at 12:11 ; Status DC Fentanyl Citrate (Fentanyl 2ml Vial) 50 mcg PRN Q2HR PRN IV PAIN Last administered on 11/23/16 09:50; Start 11/21/16 at 13:30; Stop 11/25/16 at 12:11 ; Status DC Propofol 100 ml @ 0 mls/hr CONT PRN IV PER PROTOCOL Last administered on 21:08; Start 11/21/16 at 13:30; Stop 12/03/16 at 20:56; Status DC Fentanyl Citrate (Fentanyl 2ml Vial) 25 mcg PRN Q1HR PRN IV COMM Last administered on 11/27/16 06:03; Start 11/21/16 at 13:30 Fentanyl Citrate (Fentanyl 2ml Vial) 50 mcg PRN Q1HR PRN IV COMM Last administered on 12/06/16 23:46; Start 11/21/16 at 13:30 Chlorhexidine Gluconate (Peridex) 15 ml BID MM Last administered on 12/03/16 08:34; Start 11/21/16 at 21:00; Stop 12/03/16 at 20:56; Status DC Potassium Chloride/Dextrose/ Sod Cl 1,000 ml @ 100 mls/hr Q10H IV Last administered on 11/25/16 08:55; Start 11/21/16 at 15:00; Stop 11/25/16 at 21:59 ; Status DC Albuterol/ Ipratropium (Duoneb) 3 ml RTQID NEB Last administered on 12/07/16 11 :01; Start 11/23/16 at 16:00 Amino Acids/ Glycerin/ Electrolytes 1,000 ml @ 80 mls/hr [id number] IV ; Start at 16:15; Stop 11/23/16 at 18:21; Status DC Amino Acids/ Glycerin/ Electrolytes 1,000 ml @ 80 mls/hr [id number] IV Last administered on 11/24/16 08:00; Start 11/23/16 at 21:00; Stop 11/24/16 at 13:45 ; Status DC Amino Acids/ Glycerin/ Electrolytes 1,000 ml @ 80 mls/hr [id number] IV Last administered on 11/25/16 08:22; Start 11/25/16 at 08:00; Stop 11/25/16 at 21:59 ; Status DC Linezolid 300 ml @ 300 mls/hr Q12HR IV Last administered on 11/28/16 09:12; Start 11/25/16 at 10:00; Stop 11/28/16 at 12:42; Status DC Info 1 each PRN DAILY PRN MC SEE COMMENTS Last administered on 11/30/16 13:53 ; Start 11/25/16 at 11:15; Stop 12/01/16 at 09:11; Status DC Sodium Acetate 90 meq/Potassium Chloride 50 meq/ Potassium Phosphate 13.6 mmol/ Magnesium Sulfate 10 meq/ Calcium Gluconate 10 meq/ Multivitamins 10 ml/Chromium / Copper/Manganese/ Seleni/Zn 1 ml/ Total Parenteral Nutrition/Amino Acids/ Dextrose 1,512 ml @ 63 mls/hr TPN CONT IV Last administered on 11/25/16 22: 04; Start 11/25/16 at 22:00; Stop 11/26/16 at 21:59; Status DC Sodium Chloride 45 meq/Sodium Acetate 45 meq/ Potassium Chloride 50 meq/ Potassium Phosphate 17 mmol/ Magnesium Sulfate 16 meq/Calcium Gluconate 14 meq/ Multivitamins 10 ml/Chromium/ Copper/Manganese/ Seleni/Zn 1 ml/ Total Parenteral Nutrition/Amino Acids/Dextrose 1,512 ml @ 63 mls/hr TPN CONT IV Last administered on 11/26/16 21:01; Start 11/26/16 at 22:00; Stop 11/27/16 at 21:59; Status DC Potassium Phosphate 10 mmol/ Sodium Chloride 103.3333 ml @ 51.667 m... Q2H IV Last administered on 11/26/16 14:54; Start 11/26/16 at 13:30; Stop 11/26/16 at 17:29; Status DC Meropenem 500 mg/ Sodium Chloride 50 ml @ 100 mls/hr Q8HRS IV Last administered on 12/05/16 05:36; Start 11/26/16 at 15:00; Stop 12/05/16 at 07:53; Status DC Potassium Chloride/Dextrose/ Sod Cl 1,000 ml @ 37 mls/hr Q24H IV Last administered on 11/30/16 19:40; Start 11/26/16 at 20:00; Stop 12/01/16 at 09:11 ; Status DC Sodium Chloride 45 meq/Sodium Acetate 45 meq/ Potassium Chloride 50 meq/ Potassium Phosphate 17 mmol/ Magnesium Sulfate 12 meq/Calcium Gluconate 12 meq/ Multivitamins 10 ml/Chromium/ Copper/Manganese/ Seleni/Zn 1 ml/ Total Parenteral Nutrition/Amino Acids/Dextrose/ Fat Emulsion Intravenous 1,512 ml @ 63 mls/hr TPN CONT IV Last administered on 11/27/16 22:11; Start 11/27/16 at 22:00; Stop 11/28/16 at 21:59; Status DC Sodium Chloride 45 meq/Sodium Acetate 45 meq/ Potassium Chloride 50 meq/ Potassium Phosphate 17 mmol/ Magnesium Sulfate 12 meq/Calcium Gluconate 10 meq/ Multivitamins 10 ml/Chromium/ Copper/Manganese/ Seleni/Zn 1 ml/ Total Parenteral Nutrition/Amino Acids/Dextrose 1,512 ml @ 63 mls/hr TPN CONT IV Last administered on 11/28/16 21:35; Start 11/28/16 at 22:00; Stop 11/29/16 at 21:59; Status DC Sodium Chloride 45 meq/Sodium Acetate 45 meq/ Potassium Chloride 50 meq/ Potassium Phosphate 17 mmol/ Magnesium Sulfate 12 meq/ Multivitamins 10 ml/ Chromium/ Copper/Manganese/ Seleni/Zn 1 ml/ Total Parenteral Nutrition/Amino Acids/Dextrose 1,512 ml @ 63 mls/hr TPN CONT IV Last administered on 23:23; Start 11/29/16 at 22:00; Stop 11/30/16 at 21:59; Status DC Enoxaparin Sodium (Lovenox 40mg Syringe) 40 mg Q24H SQ Last administered on 12/07 10:05; Start 11/30/16 at 10:00 Sodium Chloride 45 meq/Sodium Acetate 45 meq/ Potassium Chloride 50 meq/ Potassium Phosphate 17 mmol/ Magnesium Sulfate 12 meq/ Multivitamins 10 ml/ Chromium/ Copper/Manganese/ Seleni/Zn 1 ml/ Total Parenteral Nutrition/Amino Acids/Dextrose 1,512 ml @ 63 mls/hr TPN CONT IV Last administered on t 21:31; Start 11/30/16 at 22:00; Stop 12/01/16 at 21:59; Status DC Active Scripts Active Reported Aspir 81 (Aspirin) 81 Mg Tablet.dr 81 Mg PO DAILY Atorvastatin Calcium 10 Mg Tablet 1 Tab PO DAILY Aspirin 81 Mg Tab.chew 1 Tab PO DAILY Avodart (Dutasteride) 0.5 Mg Capsule 1 Cap PO DAILY Vitals/I & O Vital Sign - Last 24 Hours 12/06/16 12/06/16 12/06/16 12/06/16 13:00 14:00 15:00 15:43 Temp 98.7 98.2 98.4 98.7 98.2 98.4 Pulse 67 68 67 Resp 24 24 24 B/P (MAP) 109/60 (76) 114/50 (71) 121/58 (79) Pulse Ox 100 97 97 O2 Delivery Room Air Room Air Room Air Room Air 12/06/16 12/06/16 12/06/16 12/06/16 16:00 16:00 17:04 18:00 Temp 98.4 98.9 98.4 98.9 Pulse 71 67 Resp 24 24 B/P (MAP) 116/52 (73) 106/65 (79) Pulse Ox 98 98 O2 Delivery Room Air Room Air Room Air Room Air O2 Flow Rate 3.0 12/06/16 12/06/16 12/06/16 12/06/16 19:35 19:47 19:53 20:06 Temp 98.9 98.9 Pulse 67 69 Resp 22 B/P (MAP) 138/63 (88) 142/69 (93) Pulse Ox 98 97 99 O2 Delivery Room Air Room Air Room Air Room Air O2 Flow Rate 3.0 12/06/16 12/06/16 12/06/16 12/06/16 21:10 22:19 22:47 23:04 Temp 98.4 98.4 Pulse 72 75 81 Resp 24 20 24 24 B/P (MAP) 111/45 (67) 126/45 (72) 154/77 (102) Pulse Ox 97 98 98 98 O2 Delivery Room Air Room Air Room Air Room Air 12/06/16 12/07/16 12/07/16 12/07/16 23:46 00:04 00:09 00:20 Pulse 77 Resp 24 20 18 B/P (MAP) 152/82 (105) Pulse Ox 98 98 98 O2 Delivery Room Air Room Air Room Air Room Air O2 Flow Rate 3.0 12/07/16 12/07/16 12/07/16 12/07/16 01:00 02:11 03:07 04:00 Temp 98.0 98.0 Pulse 74 74 72 74 Resp 18 18 24 20 B/P (MAP) 133/64 (87) 135/65 (88) 135/63 (87) 135/72 (93) Pulse Ox 96 97 99 97 O2 Delivery Room Air Room Air Room Air Room Air 12/07/16 12/07/16 12/07/16 12/07/16 04:00 05:01 06:15 07:00 Temp 97.7 97.7 Pulse 72 73 76 Resp 26 28 24 B/P (MAP) 133/66 (88) 143/71 (95) 161/71 (101) Pulse Ox 96 97 92 O2 Delivery Room Air Room Air Room Air Room Air O2 Flow Rate 3.0 12/07/16 12/07/16 12/07/16 12/07/16 08:00 08:00 08:06 09:00 Temp 99.0 99.0 Pulse 75 79 Resp 20 26 B/P (MAP) 130/88 (102) 119/57 (77) Pulse Ox 97 97 97 O2 Delivery Room Air Room Air Room Air Room Air 12/07/16 12/07/16 12/07/16 10:00 11:00 11:03 Pulse 79 74 Resp 26 26 B/P (MAP) 119/57 (77) 121/67 (85) Pulse Ox 97 98 100 O2 Delivery Room Air Room Air Room Air Intake and Output 12/06/16 12/06/16 12/07/16 15:00 23:00 07:00 Intake Total 170 ml 220 ml 610 ml Output Total 350 ml 700 ml 600 ml Balance -180 ml -480 ml 10 ml LUX FORMEAN MD Dec 07, 2016 12:17
--- NOTE | 2016-12-07 14:22 | PDOC ---
PULMONARY PROGRESS NOTES Subjective PT EXTUBATED 12/02 AWAKE AND ALERT AT TIMES CONFUSED NO CONFUSION Vitals Vital Signs Date Time Temp Pulse Resp B/P (MAP) Pulse Ox O2 Delivery O2 Flow Rate FiO2 12/07/16 12:00 98.5 72 24 133/65 (87) 95 Room Air 98.5 12/07/16 04:00 3.0 HEENT: Other Lungs: Clear Cardiovascular: S1, S2 Abdomen: Soft, Non-tender, Other Neuro Exam: Alert Extremities: No Edema Skin: Warm Labs Laboratory Tests Test 12/06/16 05:25 12/06/16 06:45 Sodium Level 140 mmol/L (136-145) Potassium Level 4.4 mmol/L (3.5-5.1) Chloride Level 106 mmol/L (98-107) Carbon Dioxide Level 29 mmol/L (21-32) Anion Gap 5 (6-14) Blood Urea Nitrogen 22 mg/dL (8-26) Creatinine 0.8 mg/dL (0.7-1.3) Estimated GFR (Cockcroft-Gault) 91.9 BUN/Creatinine Ratio 28 (6-20) Glucose Level 105 mg/dL (70-99) Calcium Level 8.9 mg/dL (8.5-10.1) Total Bilirubin 0.5 mg/dL (0.2-1.0) Aspartate Amino Transf (AST/SGOT) 47 U/L (15-37) Alanine Aminotransferase (ALT/SGPT) 112 U/L (16-63) Alkaline Phosphatase 125 U/L (46-116) Total Protein 5.9 g/dL (6.4-8.2) Albumin 2.1 g/dL (3.4-5.0) Albumin/Globulin Ratio 0.6 (1.0-1.7) Glucose (Fingerstick) 116 mg/dL (70-99) Medications Active Scripts Medications Dose Route/Sig Max Daily Dose Days Date Category Aspir 81 (Aspirin) 81 Mg Tablet.dr 81 Mg PO DAILY 06/08/14 Reported Atorvastatin Calcium 10 Mg Tablet 1 Tab PO DAILY 03/10/14 Reported Aspirin 81 Mg Tab.chew 1 Tab PO DAILY 01/29/14 Reported Avodart (Dutasteride) 0.5 Mg Capsule 1 Cap PO DAILY 01/29/14 Reported Impression . ACUTE RESP FAILURE MULTIFACTORIAL ASPIRATION PNEUMONIA S/P SEE OP NOTE Laparoscopic repair of large paraesophageal hernia, MELENA ARF ABNL CXR POSSIBLE EDEMA AND PNEUMONIA MALNUTRITION DEMENTIA METABOLIC/ TOXIC ENCE Plan . TRANSFER TO LTAC SOON SPEECH FOLLOW UP UP TO CHAIR PT/OT EXTUBATED 12/02 BROCH 11/04, BAL NEGATIVE ANTIBX BRONCHODILATORS SABRINA VALLEJO MD Dec 07, 2016 14:22
--- NOTE | 2016-12-08 13:30 | PDOC3 ---
Discharge Summary Visit Information Date of Admission: Nov 21, 2016 Date of Discharge: Dec 07, 2016 Admitting Diagnosis: hematemesis Final Diagnosis hematemesis, GI bleed, upper, req. surgery on admit 1. 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 2. Acute respiratory failure: On mechanical ventilation, aspiration pneumonia. sputum cx + GNR. on zyvox and meropenum with ID 3. Leukocytosis 4. Hx Arrhythmia NOS: hx pacer placement 5. Prophylaxis: SCDs; 6. 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 7. hypophosphatemia: 8. DNR now, off vent, on RA, breathing well, but tachypneic 9. OMARI, 10. moderate malnutrition, not POA Problems Medical Problems: (1) Upper GI bleeding Status: Acute Brief Hospital Course Allergies Allergies Coded Allergies Type Severity Reaction Last Updated Verified No Known Drug Allergies 11/21/16 No Vital Signs Vital Signs Date Time Temp Pulse Resp B/P (MAP) Pulse Ox O2 Delivery O2 Flow Rate FiO2 12/07/16 12:00 98.5 72 24 133/65 (87) 95 Room Air 98.5 Brief Hospital Course Mr. 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 vent for mental status and hypoxia, dilirium on dementia, difficult to improved, discussion made for withdrawl of care mult times, palliative following, made DNR some slow improvement, confusion was largest limitor last few days plan LTAC Discharge Information Condition at Discharge: Improved Follow Up: Weeks Disposition/Orders: D/C to Another Facility (LTAC) Scheduled Aspirin (Aspirin), 1 TAB PO DAILY, (Reported) Aspirin (Aspir 81), 81 MG PO DAILY, (Reported) Atorvastatin Calcium (Atorvastatin Calcium), 1 TAB PO DAILY, (Reported) Dutasteride (Avodart), 1 CAP PO DAILY, (Reported) Patient Instructions Patient Instructions > 30min med review per MRAD, to LTAC< cont acute care, delirium on dementia persists LUX FOREMAN MD Dec 08, 2016 13:30
== END 2016-12-07 13:00 | DRG 326 ==
LOC: ER 19:58 → 6 SOUTH 21:28 → OBSVTOIN 11-21 09:46 → 1 WEST ICU 11-21 11:04
PROVIDERS: ADMIT Internal Medicine; ATTEND Internal Medicine
PROC: 0BQS0ZZ (ICD-10-PCS; 2016-11-21)
PROC: 0BQR0ZZ (ICD-10-PCS; 2016-11-21)
PROC: 0DB60ZZ Excision of Stomach, Open Approach (ICD-10-PCS; 2016-11-21)
PROC: 5A1955Z Respiratory Ventilation, Greater than 96 Consecutive Hours (ICD-10-PCS; 2016-11-21)
PROC: 0BH17EZ Insertion of Endotracheal Airway into Trachea, Via Natural or Artificial Opening (ICD-10-PCS; 2016-11-21)
PROC: 0DH60UZ Insertion of Feeding Device into Stomach, Open Approach (ICD-10-PCS; 2016-11-21)
PROC: 0DS60ZZ Reposition Stomach, Open Approach (ICD-10-PCS; 2016-11-21)
PROC: 0BJT4ZZ Inspection of Diaphragm, Percutaneous Endoscopic Approach (ICD-10-PCS; principal; 2016-11-21 08:00)
PROC: 30233N1 Transfusion of Nonautologous Red Blood Cells into Peripheral Vein, Percutaneous Approach (ICD-10-PCS; 2016-11-27)
DX: K44.9 Diaphragmatic hernia without obstruction or gangrene (principal); J69.0 Pneumonitis due to inhalation of food and vomit; J95.821 Acute postprocedural respiratory failure; N17.9 Acute kidney failure, unspecified; K25.5 Chronic or unspecified gastric ulcer with perforation; K55.9 Vascular disorder of intestine, unspecified; E44.0 Moderate protein-calorie malnutrition; D62 Acute posthemorrhagic anemia; K56.7 Ileus, unspecified; J61 Pneumoconiosis due to asbestos and other mineral fibers; I49.5 Sick sinus syndrome; E86.0 Dehydration; E87.6 Hypokalemia; E78.5 Hyperlipidemia, unspecified; I10 Essential (primary) hypertension; I71.4 Abdominal aortic aneurysm, without rupture; K63.5 Polyp of colon; F03.90 Unspecified dementia, unspecified severity, without behavioral disturbance, psychotic disturbance, mood disturbance, and anxiety; F17.290 Nicotine dependence, other tobacco product, uncomplicated; N40.0 Benign prostatic hyperplasia without lower urinary tract symptoms; Z66 Do not resuscitate; Z51.5 Encounter for palliative care; D69.6 Thrombocytopenia, unspecified; E78.00 Pure hypercholesterolemia, unspecified; E83.39 Other disorders of phosphorus metabolism; E83.52 Hypercalcemia; E86.1 Hypovolemia; H91.90 Unspecified hearing loss, unspecified ear; K21.0 Gastro-esophageal reflux disease with esophagitis; K29.70 Gastritis, unspecified, without bleeding; K76.89 Other specified diseases of liver; Z53.31 Laparoscopic surgical procedure converted to open procedure; Z77.090 Contact with and (suspected) exposure to asbestos; Z79.82 Long term (current) use of aspirin; Z87.11 Personal history of peptic ulcer disease; Z95.0 Presence of cardiac pacemaker; Z68.23 Body mass index [BMI] 23.0-23.9, adult; Z79.899 Other long term (current) drug therapy; Z98.49 Cataract extraction status, unspecified eye
CPT/HCPCS: 31622; 36415; 36600; 70450; 71010; 74176; 80048; 80053; 80076; 81001; 82607; 82728; 82746; 82803; 82805; 82962; 83540; 83550; 83605; 83615; 83690; 83735; 84100; 84478; 84484; 85007; 85014; 85018; 85027; 85045; 86850; 86900; 86901; 86920; 87040; 87070; 87086; 87186; 87205; 87641; 88307; 93005; 93306; 94002; 94003; 94640; 94760; C1769; G0378; G0379; J0330; J0610; J0690; J1100; J1650; J2001; J2020; J2185; J2370; J2405; J2543; J2704; J3010; J3475; J7030; J7042; J7120; J7620; P9016; S0028; 92526; 92610; 97530; 97535